=== PATIENT | male | born 1950 | race Caucasian/White ===

== ENCOUNTER 2020-08-24 10:12 | Outpatient (REF) | payer MEDICARE, OTHER, SELFPAY | END 2020-08-24 10:13 | disposition home or self-care (01) | LOC: HO.LNP 10:12 | PROVIDERS: PCP Internal Medicine; Visit Provider Urology | DX: N39.0 Urinary tract infection, site not specified (principal); C61 Malignant neoplasm of prostate; Z79.899 Other long term (current) drug therapy | CPT/HCPCS: 51798; 81002; 87086; 87088; 87186; 99212 ==

== ENCOUNTER 2020-08-25 11:05 | Outpatient (REF) | payer MEDICARE, OTHER, SELFPAY ==
[2020-08-25 14:05] LABS: Hematocrit 47.6 % (42-52); Hemoglobin 15.9 g/dl (14.0-18.0); Mean Corpuscular HGB Conc 33.4 g/dl (31.0-36.0); Mean Corpuscular Hemoglobin 28.9 pg (27.0-33.0); Mean Corpuscular Volume 86.5 fL (80-98); Mean Platelet Volume 10.5 fL (9.4-12.4); Platelet Count 156 X10*3/uL (160-400); Red Cell Distribution Width 14.6 % (11.0-16.0); White Blood Count 5.6 X10*3/uL (4.8-10.8)
[2020-08-25 14:36] LABS: Alanine Aminotransferase 28 U/L (0-40); Albumin Level 4.6 g/dL (3.5-5.0); Alkaline Phosphatase 128 U/L (39-117); Anion Gap 13 (12-20); Aspartate Amino Transferase 20 U/L (5-37); Bilirubin Total 1.3 mg/dL (0.0-1.0); Blood Urea Nitrogen 11 mg/dL (9-16); Carbon Dioxide 28 mmol/L (22-29); Chloride 108 mmol/L (96-108); Cholesterol 122 mg/dL; Estimated Glomerular Filt Rate > 60; Glucose Fasting 95 mg/dL (60-99); HDL Cholesterol 31 mg/dL; LDL Cholesterol Calculated 40 mg/dl; Potassium 4.4 mmol/l (3.3-5.1); Sodium 145 mmol/L (135-145); Total Protein 6.7 g/dL (6.5-8.0); Triglycerides 257 mg/dL
[2020-08-25 14:52] LABS: PSA,Total (Free>4and<10) 10.56 ng/mL (0.00-4.00)
== END 2020-08-25 11:06 | disposition home or self-care (01) ==
LOC: HO.HMGCLDS 11:05
PROVIDERS: PCP Internal Medicine; Visit Provider Urology
DX: N40.1 Benign prostatic hyperplasia with lower urinary tract symptoms (principal); R39.15 Urgency of urination; E78.2 Mixed hyperlipidemia; I63.81 Other cerebral infarction due to occlusion or stenosis of small artery; I10 Essential (primary) hypertension
CPT/HCPCS: 36415; 80053; 80061; 84153; 85027

== ENCOUNTER → 2020-11-23 13:59 | Outpatient (BNVA) | payer MEDICARE, SELFPAY | PROVIDERS: Visit Provider Urology | DX: C61 Malignant neoplasm of prostate (principal) | CPT/HCPCS: 81002; 99212 ==

== ENCOUNTER 2021-03-30 12:15 | Outpatient (REF) | payer MEDICARE, SELFPAY ==
[2021-03-30 13:26] LABS: Estimated Average Glucose 103 mg/dL; Hemoglobin A1c % 5.2 %
[2021-03-30 13:46] LABS: Alanine Aminotransferase 45 U/L (0-40); Albumin Level 4.7 g/dL (3.5-5.0); Alkaline Phosphatase 145 U/L (39-117); Anion Gap 14 (12-20); Aspartate Amino Transferase 29 U/L (5-37); Bilirubin Total 0.8 mg/dL (0.0-1.0); Blood Urea Nitrogen 15 mg/dL (9-16); Calcium 9.7 mg/dL (8.4-10.2); Carbon Dioxide 28 mmol/L (22-29); Chloride 107 mmol/L (96-108); Cholesterol 152 mg/dL; Estimated Glomerular Filt Rate 52; Glucose Fasting 78 mg/dL (60-99); HDL Cholesterol 33 mg/dL; LDL Cholesterol Calculated 54 mg/dl; Potassium 4.6 mmol/L (3.3-5.1); Sodium 144 mmol/L (135-145); Total Protein 6.8 g/dL (6.5-8.0); Triglycerides 325 mg/dL
[2021-03-30 14:15] LABS: Prostate Specific Antigen 4.94 ng/mL (<0.05-4.0)
== END 2021-03-30 12:16 | disposition home or self-care (01) ==
LOC: HO.LAB 12:15
PROVIDERS: PCP Internal Medicine; Visit Provider Urology
DX: Z12.5 Encounter for screening for malignant neoplasm of prostate (principal); C61 Malignant neoplasm of prostate; N13.8 Other obstructive and reflux uropathy; N40.1 Benign prostatic hyperplasia with lower urinary tract symptoms; R73.9 Hyperglycemia, unspecified; E78.5 Hyperlipidemia, unspecified; I10 Essential (primary) hypertension
CPT/HCPCS: 36415; 80053; 80061; 83036; 84153

== ENCOUNTER → 2021-03-31 11:17 | Outpatient (BNVA) | payer MEDICARE, SELFPAY | PROVIDERS: PCP Internal Medicine; Visit Provider Urology | DX: C61 Malignant neoplasm of prostate (principal) | CPT/HCPCS: 99212 ==

== ENCOUNTER 2021-06-05 09:45 | Inpatient (IN) | payer MEDICARE, MEDICAID, SELFPAY ==
--- NOTE | 2021-06-05 | ECG_ITS ---
Test Reason : SYNCOPE Blood Pressure : / mmHG Vent. Rate : 091 BPM Atrial Rate : 091 BPM P-R Int : 172 ms QRS Dur : 078 ms QT Int : 374 ms P-R-T Axes : 045 -05 020 degrees QTc Int : 460 ms Normal sinus rhythm Nonspecific T wave abnormality Abnormal ECG When compared with ECG of 09-DEC-2019 17:41, Nonspecific T wave abnormality is now Present Referred By: Generic ED Physician Electronically Signed By:DERRELL PAIGE
--- NOTE | ~2021-06-05 | XR_ITS ---
EXAMINATION: XR CHEST CLINICAL INFORMATION: Evaluate for aspiration. COMPARISON: Chest 06/05/2021 TECHNIQUE: Frontal view of the chest was obtained. FINDINGS: The lungs are hyperexpanded but clear of acute process. Heart size and pulmonary vascularity is normal. No gross bony abnormality seen. There is a right central port with its tip at atrial junction. There is mild spondylosis. No gross bony abnormality. XR/XR chest 1V IMPRESSION: Hypoexpanded lungs with no acute process.
--- NOTE | ~2021-06-05 | CT_ITS ---
EXAMINATION: CT CERVICAL SPINE WITHOUT CONTRAST CLINICAL INFORMATION: Fall. Neck pain. COMPARISON: None TECHNIQUE: 3 mm thin axial and reformatted 2 mm thin sagittal and coronal images of cervical spine were obtained without contrast. This CT examination was performed using dose optimization techniques as appropriate, variously including the following: *Automated exposure control *Adjustment of mA and/or kV according to patient size (this includes techniques or standardized protocols for targeted exams where dose is matched to indication/reason for exam; i.e. extremities or head) *Use of iterative reconstruction technique DLP: 1321 mGy-cm FINDINGS: There is normal cervical lordosis. The vertebral heights and alignment is normal. There is loss of C5-C6, C6-C7 disc heights with moderate ventral and mild posterior spondylosis from C4-C5 through C6-C7 disc levels. Moderate superior endplate spurring is seen at the C1-C2 disc level. The craniovertebral junction is normal. No visible acute fracture, dislocation or lytic process seen. There is moderate bilateral facet joint arthropathy C2-C3 through C6-C7 disc levels. Bilateral TM joints, visualized mandible and the neck cartilages are intact. Bilateral set salivary glands and the thyroid lobes are symmetric and normal. No neck mass or hematoma seen. Bilateral mastoid air cells and sphenoid sinuses are clear. No abnormality seen in the visualized intraparenchymal brain. CT/CT cervical spine wo con IMPRESSION: No acute fracture, dislocation or subluxation. There are degenerative disc changes C5-C6 and C6-C7 disc levels. Bilateral facet joint arthropathy and mild C1-C2 superior enthesophytes are noted.
--- NOTE | ~2021-06-05 | CT_ITS ---
EXAMINATION: CT HEAD WITHOUT CONTRAST CLINICAL INFORMATION: Fall COMPARISON: Previous head CT scans most recent November 2019 TECHNIQUE: Contiguous axial imaging was performed from the skull base to vertex without intravenous administration of contrast. This CT examination was performed using dose optimization techniques as appropriate, variously including the following: *Automated exposure control *Adjustment of mA and/or kV according to patient size (this includes techniques or standardized protocols for targeted exams where dose is matched to indication/reason for exam; i.e. extremities or head) *Use of iterative reconstruction technique DLP: 779 mGy-cm FINDINGS: There is no evidence of an extra-axial collection. There is no evidence of intra-axial or extra-axial hemorrhage. The ventricles and extra-axial CSF spaces are prominent suggestive of mild generalized atrophy. There is nonspecific periventricular white matter disease. No mass, mass effect or infarct is seen. Review of bone windows is normal. No skull fracture is seen. Visualized paranasal sinuses, mastoid air cells and middle ears are clear. CT/CT head/brain wo con IMPRESSION: No acute findings. Mild generalized atrophy and nonspecific periventricular white matter disease.
--- NOTE | ~2021-06-05 | XR_ITS ---
EXAMINATION: XR CHEST CLINICAL INFORMATION: Weakness COMPARISON: Previous chest x-ray November 2019, chest CT most recent September 2019 and PET/CT June 2018 TECHNIQUE: Frontal view of the chest was obtained. FINDINGS: The cardiac and mediastinal contours are stable. There is a right jugular port with tip projecting over the SVC. The lung volumes are low. There is atelectasis at the lung bases. The lungs are otherwise clear. There is no pleural effusion or pneumothorax. There are degenerative changes of the spine. There is a 1 cm sclerotic projecting over the the left proximal humerus. This is not seen on prior exams. XR/XR chest 1V IMPRESSION: Low lung volumes. Atelectasis at the lung bases. 1 cm sclerotic density injecting over the left proximal humerus. This is not seen on prior exams.
[2021-06-05 09:53] VITALS: BP 117/76; PULSE 88; RESP 18; TEMP 37.6; O2SAT 95; BMI 27.3
[2021-06-05 10:00] LABS: Glucose, Whole Blood 118 mg/dL (60-115)
--- NOTE | 2021-06-05 11:01 | ED_ITS ---
HPI - Syncope General Chief Complaint: Syncope Stated Complaint: VOMITING W/SYNCOPAL EPISODE PER SON Time Seen by Provider: 06/05/21 11:00 Source: patient and EMS Mode of arrival: EMS Limitations: altered mental status History of Present Illness complaint: almost passed out and collapsed Onset (ago): unknown Prodromal symptoms: none Witnessed: No Context: during exertion (walking in kitchen) Injuries sustained associated with event: none Current symptoms: weakness History: previous syncopal episode and other (BPH, lymphoma) Treatments prior to arrival: none Related Data Home Medications Medication Instructions Recorded Confirmed tamsulosin 0.4 mg capsule (Flomax) 0.8 mg PO DAILY@1700 09/02/20 06/05/21 acetaminophen 500 mg tablet 500 mg PO Q6H PRN 06/05/21 06/05/21 (Acetaminophen Extra Strength) Previous Rx's Medication Instructions Recorded atorvastatin 40 mg tablet 40 mg PO DAILY #90 tab 07/25/20 metoprolol tartrate 50 mg tablet 50 mg PO BID #180 tab 11/22/20 diaper,brief,adult,disposable #60 ea 12/20/20 finasteride 5 mg tablet 5 mg PO DAILY 90 Days #90 tab 05/31/21 Allergies Allergy/AdvReac Type Severity Reaction Status Date / Time No Known Allergies Allergy Verified 01/11/21 12:17 [No Known Allergies*] Review of Systems Review of Systems: ROS unable to be obtained due to altered mental status [facility] Past Medical History Source: old records reviewed Medical History Abnormal computed tomography angiography (CTA) Annual physical exam BPH (benign prostatic hyperplasia) CVA (cerebral vascular accident) Dementia Follicular lymphoma HTN (hypertension) Hyperglycemia Hyperlipidemia Lumbar spinal stenosis Surgical History H/O colonoscopy Family History Family History Father Colon cancer HTN (hypertension) Brother Non-Hodgkin lymphoma HTN (hypertension) Sister HTN (hypertension) Mother HTN (hypertension) TIA (transient ischemic attack) Social History Social History Alcohol intake: former Cigarettes Per Day: 3 Advance Directives: Yes Advance Directives Information Provided: No Advance Directives on File: No Physical Exam Vital Signs: Vital Signs: Last Vital Signs Temp 104 F H 06/05/21 15:55 Pulse 98 06/05/21 15:55 Resp 18 06/05/21 15:55 BP 168/89 H 06/05/21 15:55 Pulse Ox 89 L 06/05/21 15:55 Body Mass Index 27.3 Appearance: Alert. Oriented X2. Mild acute distress. Eyes: Pupils equal, round and reactive to light. ENT: Pharynx normal. Neck: Normal inspection. Neck supple. CVS: tachycardic heart rate and rhythm. Pulses normal. Respiratory: No respiratory distress. Breath sounds diminished due to poor inspiratory effort - limited, port site is c/d/i Abdomen: Soft and nontender. no grimace Skin: Skin warm and dry. pale skin color. poor skin turgor. Extremities: No lower extremity edema. no obvious trauma Neuro: Oriented X 2. ?LLE weakness but patient confused and poor effort. No sensory deficit. Course Course Course Narrative: pleasant but still confused - will admit for UTi and IV abx obs of encephalopathy temp increased, RI tylenol ordered, vomited - zofran and CXR ordered he is 89% on RA after emesis possible aspiration - RN To notify inpatient hospitalist as he is admitted MDM - Syncope MDM Narrative Medical decision making narrative: 70 yo male with lymphoma, BPH, recurrent UTI as of 09/11 E. Coli on susc to Ceftriaxone at this time comes in and states he almost passed out while walking in kitchen no trauma noted. Will need metabolic and infectious workup as well as CT head/neck for trauma. Will obtain cultures, lactic acid, hydrate and empiric ceftriaxone for presumed UTI - likely admit vs STR. Lab Data Result diagrams: 06/05/21 11:57 06/05/21 11:57 Labs: Lab Results 06/05/21 06/05/21 06/05/21 Range/Units 09:56 11:57 11:57 WBC 10.5 (4.8-10.8) X10*3/uL RBC 5.49 (4.60-5.80) X10*6/uL Hgb 15.7 (14.0-18.0) g/dl Hct 45.7 (42-52) % MCV 83.2 (80-98) fL MCH 28.6 (27.0-33.0) pg MCHC 34.4 (31.0-36.0) g/dl RDW 14.6 (11.0-16.0) % Plt Count 113 L (160-400) X10*3/uL MPV 10.0 (9.4-12.4) fL Immature Gran % (Auto) 1.2 H (0.0-0.4) % Neut % (Auto) 91.5 H (45-73) % Lymph % (Auto) 2.5 L (20-40) % Whitman % (Auto) 4.6 (2-11) % Eos % (Auto) 0.0 (0-4) % Baso % (Auto) 0.2 (0-2) % Lymph # (Auto) 0.3 L (1.2-4.9) X10*3/uL [place] # (Auto) 0.5 (0.1-1.2) X10*3/uL Eos # (Auto) 0.0 (0.0-0.4) X10*3/uL Baso # (Auto) 0.0 (0.0-0.2) X10*3/uL Abs Immat Gran (auto) 0.13 H (0.00-0.03) X10*3/uL Absolute Neuts (auto) 9.7 H (2.0-8.3) X10*3/uL Absolute Nucleated RBC 0.000 (0.0-0.012) X10*3/uL Nucleated RBC % (auto) 0.0 (0.0-0.2) /100WBC Smear Tech's Comments VERIFIED PT (9.9-13.0) SEC INR (0.9-1.1) APTT (24.1-38.0) SEC VBG pH (7.32-7.43) VBG pCO2 mmHg VBG pO2 mmHg VBG HCO3 (22-26) mmol/L VBG O2 Saturation % VBG Base Excess mmol/L Sodium 143 (135-145) mmol/L Potassium 3.8 (3.3-5.1) mmol/L Chloride 107 (96-108) mmol/L Carbon Dioxide 25 (22-29) mmol/L Anion Gap 15 (12-20) BUN 14 (9-16) mg/dL Creatinine 1.19 (0.5-1.4) mg/dL Estim Creat Clear Calc 56.9 Estimated GFR > 60 POC Glucose 118 H (60-115) mg/dL Random Glucose 92 (60-115) mg/dL Lactic Acid (0.5-2.0) mmol/L Calcium 9.6 D (8.4-10.2) mg/dL Magnesium (1.6-2.6) mg/dL Total Bilirubin (0.0-1.0) mg/dL Direct Bilirubin (0.0-0.5) mg/dL AST (5-37) U/L ALT (0-40) U/L Alkaline Phosphatase (39-117) U/L Ammonia (13-55) umol/L Troponin I High Sens (<3.5-35.0) ng/L Total Protein (6.5-8.0) g/dL Albumin (3.5-5.0) g/dL Lipase (8-78) U/L Urine Color Urine Appearance Urine pH (5.0-8.0) Ur Specific [place] (1.005-1.025) Urine Protein (NEG-TRACE) MG/DL Urine Glucose (UA) (NEG) MG/DL Urine Ketones (NEG) MG/DL Urine Blood (NEG) Urine Nitrite (NEG) Ur Leukocyte Esterase (NEG) Urine RBC (0) /HPF Urine WBC (0-4) /HPF Ur Squamous Epith Cells /LPF Urine Bacteria /LPF COVID-19 (JAMAL) (Negative) COVID-19 Clin Com 06/05/21 06/05/21 06/05/21 Range/Units 11:57 11:57 11:57 WBC (4.8-10.8) X10*3/uL RBC (4.60-5.80) X10*6/uL Hgb (14.0-18.0) g/dl Hct (42-52) % MCV (80-98) fL MCH (27.0-33.0) pg MCHC (31.0-36.0) g/dl RDW (11.0-16.0) % Plt Count (160-400) X10*3/uL MPV (9.4-12.4) fL Immature Gran % (Auto) (0.0-0.4) % Neut % (Auto) (45-73) % Lymph % (Auto) (20-40) % [place] % (Auto) (2-11) % Eos % (Auto) (0-4) % Baso % (Auto) (0-2) % Lymph # (Auto) (1.2-4.9) X10*3/uL [place] # (Auto) (0.1-1.2) X10*3/uL Eos # (Auto) (0.0-0.4) X10*3/uL Baso # (Auto) (0.0-0.2) X10*3/uL Abs Immat Gran (auto) (0.00-0.03) X10*3/uL Absolute Neuts (auto) (2.0-8.3) X10*3/uL Absolute Nucleated RBC (0.0-0.012) X10*3/uL Nucleated RBC % (auto) (0.0-0.2) /100WBC Smear Tech's Comments PT 11.9 (9.9-13.0) SEC INR 1.0 (0.9-1.1) APTT 34.9 (24.1-38.0) SEC VBG pH (7.32-7.43) VBG pCO2 mmHg VBG pO2 mmHg VBG HCO3 (22-26) mmol/L VBG O2 Saturation % VBG Base Excess mmol/L Sodium (135-145) mmol/L Potassium (3.3-5.1) mmol/L Chloride (96-108) mmol/L Carbon Dioxide (22-29) mmol/L Anion Gap (12-20) BUN (9-16) mg/dL Creatinine (0.5-1.4) mg/dL Estim Creat Clear Calc Estimated GFR POC Glucose (60-115) mg/dL Random Glucose (60-115) mg/dL Lactic Acid (0.5-2.0) mmol/L Calcium (8.4-10.2) mg/dL Magnesium 2.0 (1.6-2.6) mg/dL Total Bilirubin 1.6 H (0.0-1.0) mg/dL Direct Bilirubin 0.6 H (0.0-0.5) mg/dL AST 34 D (5-37) U/L ALT 65 H (0-40) U/L Alkaline Phosphatase 119 H (39-117) U/L Ammonia (13-55) umol/L Troponin I High Sens 4.2 (<3.5-35.0) ng/L Total Protein 6.5 (6.5-8.0) g/dL Albumin 4.7 (3.5-5.0) g/dL Lipase 31 (8-78) U/L Urine Color Urine Appearance Urine pH (5.0-8.0) Ur Specific [place] (1.005-1.025) Urine Protein (NEG-TRACE) MG/DL Urine Glucose (UA) (NEG) MG/DL Urine Ketones (NEG) MG/DL Urine Blood (NEG) Urine Nitrite (NEG) Ur Leukocyte Esterase (NEG) Urine RBC (0) /HPF Urine WBC (0-4) /HPF Ur Squamous Epith Cells /LPF Urine Bacteria /LPF COVID-19 (JAMAL) (Negative) COVID-19 Clin Com 06/05/21 06/05/21 06/05/21 Range/Units 11:58 11:58 12:01 WBC (4.8-10.8) X10*3/uL RBC (4.60-5.80) X10*6/uL Hgb (14.0-18.0) g/dl Hct (42-52) % MCV (80-98) fL MCH (27.0-33.0) pg MCHC (31.0-36.0) g/dl RDW (11.0-16.0) % Plt Count (160-400) X10*3/uL MPV (9.4-12.4) fL Immature Gran % (Auto) (0.0-0.4) % Neut % (Auto) (45-73) % Lymph % (Auto) (20-40) % [place] % (Auto) (2-11) % Eos % (Auto) (0-4) % Baso % (Auto) (0-2) % Lymph # (Auto) (1.2-4.9) X10*3/uL [place] # (Auto) (0.1-1.2) X10*3/uL Eos # (Auto) (0.0-0.4) X10*3/uL Baso # (Auto) (0.0-0.2) X10*3/uL Abs Immat Gran (auto) (0.00-0.03) X10*3/uL Absolute Neuts (auto) (2.0-8.3) X10*3/uL Absolute Nucleated RBC (0.0-0.012) X10*3/uL Nucleated RBC % (auto) (0.0-0.2) /100WBC Smear Tech's Comments PT (9.9-13.0) SEC INR (0.9-1.1) APTT (24.1-38.0) SEC VBG pH (7.32-7.43) VBG pCO2 mmHg VBG pO2 mmHg VBG HCO3 (22-26) mmol/L VBG O2 Saturation % VBG Base Excess mmol/L Sodium (135-145) mmol/L Potassium (3.3-5.1) mmol/L Chloride (96-108) mmol/L Carbon Dioxide (22-29) mmol/L Anion Gap (12-20) BUN (9-16) mg/dL Creatinine (0.5-1.4) mg/dL Estim Creat Clear Calc Estimated GFR POC Glucose (60-115) mg/dL Random Glucose (60-115) mg/dL Lactic Acid 1.3 (0.5-2.0) mmol/L Calcium (8.4-10.2) mg/dL Magnesium (1.6-2.6) mg/dL Total Bilirubin (0.0-1.0) mg/dL Direct Bilirubin (0.0-0.5) mg/dL AST (5-37) U/L ALT (0-40) U/L Alkaline Phosphatase (39-117) U/L Ammonia 18 (13-55) umol/L Troponin I High Sens (<3.5-35.0) ng/L Total Protein (6.5-8.0) g/dL Albumin (3.5-5.0) g/dL Lipase (8-78) U/L Urine Color Urine Appearance Urine pH (5.0-8.0) Ur Specific [place] (1.005-1.025) Urine Protein (NEG-TRACE) MG/DL Urine Glucose (UA) (NEG) MG/DL Urine Ketones (NEG) MG/DL Urine Blood (NEG) Urine Nitrite (NEG) Ur Leukocyte Esterase (NEG) Urine RBC (0) /HPF Urine WBC (0-4) /HPF Ur Squamous Epith Cells /LPF Urine Bacteria /LPF COVID-19 (JAMAL) Negative (Negative) COVID-19 Clin Com See Note 06/05/21 06/05/21 Range/Units 12:08 13:26 WBC (4.8-10.8) X10*3/uL RBC (4.60-5.80) X10*6/uL Hgb (14.0-18.0) g/dl Hct (42-52) % MCV (80-98) fL MCH (27.0-33.0) pg MCHC (31.0-36.0) g/dl RDW (11.0-16.0) % Plt Count (160-400) X10*3/uL MPV (9.4-12.4) fL Immature Gran % (Auto) (0.0-0.4) % Neut % (Auto) (45-73) % Lymph % (Auto) (20-40) % [place]man % (Auto) (2-11) % Eos % (Auto) (0-4) % Baso % (Auto) (0-2) % Lymph # (Auto) (1.2-4.9) X10*3/uL [place] # (Auto) (0.1-1.2) X10*3/uL Eos # (Auto) (0.0-0.4) X10*3/uL Baso # (Auto) (0.0-0.2) X10*3/uL Abs Immat Gran (auto) (0.00-0.03) X10*3/uL Absolute Neuts (auto) (2.0-8.3) X10*3/uL Absolute Nucleated RBC (0.0-0.012) X10*3/uL Nucleated RBC % (auto) (0.0-0.2) /100WBC Smear Tech's Comments PT (9.9-13.0) SEC INR (0.9-1.1) APTT (24.1-38.0) SEC VBG pH 7.40 (7.32-7.43) VBG pCO2 37 mmHg VBG pO2 34 mmHg VBG HCO3 23 (22-26) mmol/L VBG O2 Saturation 48.0 % VBG Base Excess -1.0 mmol/L Sodium (135-145) mmol/L Potassium (3.3-5.1) mmol/L Chloride (96-108) mmol/L Carbon Dioxide (22-29) mmol/L Anion Gap (12-20) BUN (9-16) mg/dL Creatinine (0.5-1.4) mg/dL Estim Creat Clear Calc Estimated GFR POC Glucose (60-115) mg/dL Random Glucose (60-115) mg/dL Lactic Acid (0.5-2.0) mmol/L Calcium (8.4-10.2) mg/dL Magnesium (1.6-2.6) mg/dL Total Bilirubin (0.0-1.0) mg/dL Direct Bilirubin (0.0-0.5) mg/dL AST (5-37) U/L ALT (0-40) U/L Alkaline Phosphatase (39-117) U/L Ammonia (13-55) umol/L Troponin I High Sens (<3.5-35.0) ng/L Total Protein (6.5-8.0) g/dL Albumin (3.5-5.0) g/dL Lipase (8-78) U/L Urine Color YELLOW Urine Appearance HAZY Urine pH 5.5 (5.0-8.0) Ur Specific [place] 1.020 (1.005-1.025) Urine Protein TRACE (NEG-TRACE) MG/DL Urine Glucose (UA) NEG (NEG) MG/DL Urine Ketones NEG (NEG) MG/DL Urine Blood 3+ H (NEG) Urine Nitrite POS H (NEG) Ur Leukocyte Esterase 2+ H (NEG) Urine RBC 30-49 H (0) /HPF Urine WBC 50-75 H (0-4) /HPF Ur Squamous Epith Cells NONE /LPF Urine Bacteria 3+ /LPF COVID-19 (JAMAL) (Negative) COVID-19 Clin Com ECG Data Attestation: I personally reviewed and interpreted this ECG as follows: ECG interpretation date: 06/05/21 ECG interpretation time: 11:01 Interpretation: Rate: 91 Rhythm: NSR Omega: left Normal P waves. Normal PINO. Normal QRS complex. ST T wave : no RUBEN, nonspecific qTC: normal prior studies: no acute ischemia The study has been interpreted contemporaneously by me. . Discharge Plan Discharge Clinical Impression: Encephalopathy due to infection, Acute UTI Fever Qualifiers: Fever type: unspecified Qualified Code(s): R50.9 - Fever, unspecified Patient Disposition: Admitted As Inpatient
[2021-06-05 12:10] VITALS: TEMP 38.5; O2SAT 95
[2021-06-05 12:12] LABS: Venous Blood Gas Refer to POC result
[2021-06-05 12:13] LABS: VBG HCO3 23 mmol/L (22-26); VBG pCO2 37 mmHg; VBG pO2 34 mmHg
[2021-06-05] MEDS: Acetaminophen 325 MG TABLET 650 MG PO (12:15)
[2021-06-05] MEDS: cefTRIAXone sodium 1 GM in 0.9 % Sodium Chloride 50 ML IV (12:15)
[2021-06-05] MEDS: 0.9 % Sodium Chloride 1,000 ML 999 ML IVCONT ×2 (12:15→13:05)
[2021-06-05 12:16] LABS: Basophils Percent Auto 0.2 % (0-2); Hematocrit 45.7 % (42-52); Hemoglobin 15.7 g/dl (14.0-18.0); Imm Gran Abs Auto 0.13 X10*3/uL (0.00-0.03); Imm Gran Pct Auto 1.2 % (0.0-0.4); Lymphocytes Absolute Auto 0.3 X10*3/uL (1.2-4.9); Lymphocytes Percent Auto 2.5 % (20-40); MANUAL DIFF FLAG SCAN; Mean Corpuscular HGB Conc 34.4 g/dl (31.0-36.0); Mean Corpuscular Hemoglobin 28.6 pg (27.0-33.0); Mean Corpuscular Volume 83.2 fL (80-98); Monocytes Absolute Auto 0.5 X10*3/uL (0.1-1.2); Monocytes Percent Auto 4.6 % (2-11); Neutrophils Absolute Auto 9.7 X10*3/uL (2.0-8.3); Neutrophils Percent Auto 91.5 % (45-73); Platelet Count 113 X10*3/uL (160-400); Red Blood Count 5.49 X10*6/uL (4.60-5.80); Red Cell Distribution Width 14.6 % (11.0-16.0); SCAN SMEAR FLAG 1; White Blood Count 10.5 X10*3/uL (4.8-10.8)
[2021-06-05 12:21] LABS: Prothrombin Time 11.9 SEC (9.9-13.0)
[2021-06-05 12:22] LABS: Ammonia 18 umol/L (13-55)
[2021-06-05 12:24] LABS: Partial Thromboplastin Time 34.9 SEC (24.1-38.0)
[2021-06-05 12:26] LABS: Lactic Acid 1.3 mmol/L (0.5-2.0)
[2021-06-05 12:34] LABS: COVID-19 Test Negative (Negative)
[2021-06-05 12:35] LABS: Anion Gap 15 (12-20); Blood Urea Nitrogen 14 mg/dL (9-16); Calcium 9.6 mg/dL (8.4-10.2); Carbon Dioxide 25 mmol/L (22-29); Chloride 107 mmol/L (96-108); Creatinine Clr Calc Pharmacy 56.9; Estimated Glomerular Filt Rate > 60; Glucose Random 92 mg/dL (60-115); Potassium 3.8 mmol/L (3.3-5.1); Sodium 143 mmol/L (135-145)
--- NOTE | 2021-06-05 12:37 | PHA.MEDREC ---
Pharmacy Consult ? Medication Reconciliation Pharmacy has completed the medication reconciliation. SPOKE WITH SON (FLOYD) AND DAUGHTER (ALICE). PATIENT DID NOT TAKE HIS MEDICATIONS THIS MORNING.
[2021-06-05 12:38] LABS: Alanine Aminotransferase 65 U/L (0-40); Albumin Level 4.7 g/dL (3.5-5.0); Alkaline Phosphatase 119 U/L (39-117); Aspartate Amino Transferase 34 U/L (5-37); Bilirubin Direct 0.6 mg/dL (0.0-0.5); Bilirubin Total 1.6 mg/dL (0.0-1.0); Lipase 31 U/L (8-78); Total Protein 6.5 g/dL (6.5-8.0)
[2021-06-05 12:40] LABS: Troponin-I High Sensitivity 4.2 ng/L (<3.5-35.0)
[2021-06-05 13:33] LABS: SLIDE REVIEW VERIFIED
[2021-06-05 13:45] LABS: Appearance Urine HAZY; Color Urine YELLOW; Glucose Urine UA NEG (NEG); Leukocyte Esterase Urine 2+ (NEG); Nitrite Urine POS (NEG); PH 5.5 (5.0-8.0); UACC Culture Trigger YES; Urine Blood 3+ (NEG); Urine Ketones NEG (NEG); Urine Protein TRACE MG/DL (NEG-TRACE)
[2021-06-05 13:59] LABS: RBC Urine 30-49 /HPF (0); WBC Urine 50-75 /HPF (0-4)
[2021-06-05 14:00] LABS: Bacteria Urine 3+ /LPF
--- NOTE | 2021-06-05 15:26 | PM.IMHP ---
History of Present Illness Date of Service: 06/05/21 Chief Complaint: Confusion, found on the floor by son This is a 70 yo M with a PMH of BPH, for follicular lymphoma with bone marrow involvement, CVA with left leg weakness, hypertension, hyperlipidemia amongst others who presents to the hospital after being found on the ground at home by his son. The patient is currently confused and so history is extremely limited and obtained from the patient's son whom he lives with. His son reports that about 12 days ago his father received the 2nd of his COVID-19 vaccination. He reports that for the next several days his father had recurrent fevers and confusion which also occurred after his 1st dose. However he did not require emergency room or PCP visit. His son reports that he was treated and observed at home with improvement back to his baseline. His son reports that he was actually doing fairly well. However, on the day prior to admission when his son returned home the patient was found on the ground with some vomitus on his shoulder and so he brought him to the emergency room. Upon arrival to the ED, patient underwent workup which included a UA which was strongly positive for urinary tract infection. Patient was confused and also febrile. He underwent a CT of the head, C-spine which were negative for acute findings. Chest x-ray was also negative for acute findings. Patient was given 1L IVF, IV antibiotics and admission as requested. Review of Systems Review of Systems: unable to be obtained Yes Unobtainable due to mental status [facility] Medical History Abnormal computed tomography angiography (CTA) Annual physical exam BPH (benign prostatic hyperplasia) CVA (cerebral vascular accident) Dementia Follicular lymphoma HTN (hypertension) Hyperglycemia Hyperlipidemia Lumbar spinal stenosis Family History Father Colon cancer HTN (hypertension) Brother Non-Hodgkin lymphoma HTN (hypertension) Sister HTN (hypertension) Mother HTN (hypertension) TIA (transient ischemic attack) Surgical History H/O colonoscopy Social History Alcohol intake: former Cigarettes Per Day: 3 Advance Directives: Yes Advance Directives Information Provided: No Advance Directives on File: No Meds Allergies Allergy/AdvReac Type Severity Reaction Status Date / Time No Known Allergies Allergy Verified 01/11/21 12:17 [No Known Allergies*] Active Medications: Current Medications Generic Name Dose Route Start Last Admin Trade Name Freq PRN Reason Stop Dose Admin Acetaminophen 650 mg 06/05/21 15:11 Acetaminophen 325 Mg Tablet PO Q6H PRN Pain, Mild (Pain Scale 1-3) Enoxaparin Sodium 40 mg 06/05/21 15:15 Enoxaparin Sodium 40 Mg/0.4 Ml Syringe SUBCUT Q24H [facility] Ceftriaxone Sodium 1 gm/ 50 mls @ 100 mls/hr 06/06/21 09:00 Sodium Chloride IV DAILY DEONDRE Ondansetron HCl 4 mg 06/05/21 15:11 Ondansetron Hcl 4 Mg/2 Ml Vial IVPUSH Q8H PRN Nausea and Vomiting Pharmacy Consult 1 each 06/05/21 11:06 Consult Rx Perform Med Rec MISCELLANE ONCE PRN Consult order Sodium Chloride 3 ml 06/05/21 16:00 0.9 % Sodium Chloride Flush 3 Ml Syringe IVFLUSH QSHIFT [facility] Home Medications Medication Instructions Recorded Confirmed Last Taken Type tamsulosin 0.4 mg capsule (Flomax) 0.8 mg PO DAILY@1700 09/02/20 06/05/21 06/04/21 History acetaminophen 500 mg tablet 500 mg PO Q6H PRN 06/05/21 06/05/21 Unknown History (Acetaminophen Extra Strength) Physical Exam Vital Signs and Narrative: Vital Signs: Last Vital Signs Temp 101.3 F H 06/05/21 12:10 Pulse 88 06/05/21 09:53 Resp 18 06/05/21 09:53 BP 117/76 06/05/21 09:53 Pulse Ox 95 06/05/21 12:10 Body Mass Index 27.3 Const: Other: Constitutional - Awake and Alert, Disoriented Eyes - PERRLA, EOMI Cardiovascular - S1S2, RRR, No edema Respiratory - Normal lung expansion, Normal respiratory effort, No respiratory distress, CTA bilaterally Gastrointestinal - NT / ND; +BS; No rebound or guarding - No CVA tenderness Extremities - no calf tenderness bilaterally, no swelling Musculoskeletal - Normal inspection, normal ROM Skin - Warm/Dry Neurological - Disoriented to person, place and time; moving all 4 limbs Psychological - inappropriate affect Results Labs CBC and Chem 7: 06/05/21 11:57 06/05/21 11:57 Labs: Laboratory Results - last 24 hr 06/05/21 06/05/21 06/05/21 09:56 11:57 11:57 MCV 83.2 MCH 28.6 MCHC 34.4 RDW 14.6 Plt Count 113 L MPV 10.0 Immature Gran % (Auto) 1.2 H Neut % (Auto) 91.5 H Lymph % (Auto) 2.5 L [place] % (Auto) 4.6 Eos % (Auto) 0.0 Baso % (Auto) 0.2 Lymph # (Auto) 0.3 L [place] # (Auto) 0.5 Eos # (Auto) 0.0 Baso # (Auto) 0.0 Abs Immat Gran (auto) 0.13 H Absolute Neuts (auto) 9.7 H Absolute Nucleated RBC 0.000 Nucleated RBC % (auto) 0.0 Smear Tech's Comments VERIFIED PT INR APTT VBG pH VBG pCO2 VBG pO2 VBG HCO3 VBG O2 Saturation VBG Base Excess Anion Gap 15 Creatinine 1.19 Estim Creat Clear Calc 56.9 Estimated GFR > 60 POC Glucose 118 H Random Glucose 92 Lactic Acid Calcium 9.6 D Magnesium Total Bilirubin Direct Bilirubin AST ALT Alkaline Phosphatase Ammonia Troponin I High Sens Total Protein Albumin Lipase Urine Color Urine Appearance Urine pH Ur Specific [place] Urine Protein Urine Glucose (UA) Urine Ketones Urine Blood Urine Nitrite Ur Leukocyte Esterase Urine RBC Urine WBC Ur Squamous Epith Cells Urine Bacteria COVID-19 (JAMAL) COVID-19 Clin Com 06/05/21 06/05/21 06/05/21 11:57 11:57 11:57 MCV MCH MCHC RDW Plt Count MPV Immature Gran % (Auto) Neut % (Auto) Lymph % (Auto) [place] % (Auto) Eos % (Auto) Baso % (Auto) Lymph # (Auto) [place] # (Auto) Eos # (Auto) Baso # (Auto) Abs Immat Gran (auto) Absolute Neuts (auto) Absolute Nucleated RBC Nucleated RBC % (auto) Smear Tech's Comments PT 11.9 INR 1.0 APTT 34.9 VBG pH VBG pCO2 VBG pO2 VBG HCO3 VBG O2 Saturation VBG Base Excess Anion Gap Creatinine Estim Creat Clear Calc Estimated GFR POC Glucose Random Glucose Lactic Acid Calcium Magnesium 2.0 Total Bilirubin 1.6 H Direct Bilirubin 0.6 H AST 34 D ALT 65 H Alkaline Phosphatase 119 H Ammonia Troponin I High Sens 4.2 Total Protein 6.5 Albumin 4.7 Lipase 31 Urine Color Urine Appearance Urine pH Ur Specific [place] Urine Protein Urine Glucose (UA) Urine Ketones Urine Blood Urine Nitrite Ur Leukocyte Esterase Urine RBC Urine WBC Ur Squamous Epith Cells Urine Bacteria COVID-19 (JAMAL) COVID-19 Clin Com 06/05/21 06/05/21 06/05/21 11:58 11:58 12:01 MCV MCH MCHC RDW Plt Count MPV Immature Gran % (Auto) Neut % (Auto) Lymph % (Auto) [place] % (Auto) Eos % (Auto) Baso % (Auto) Lymph # (Auto) [place] # (Auto) Eos # (Auto) Baso # (Auto) Abs Immat Gran (auto) Absolute Neuts (auto) Absolute Nucleated RBC Nucleated RBC % (auto) Smear Tech's Comments PT INR APTT VBG pH VBG pCO2 VBG pO2 VBG HCO3 VBG O2 Saturation VBG Base Excess Anion Gap Creatinine Estim Creat Clear Calc Estimated GFR POC Glucose Random Glucose Lactic Acid 1.3 Calcium Magnesium Total Bilirubin Direct Bilirubin AST ALT Alkaline Phosphatase Ammonia 18 Troponin I High Sens Total Protein Albumin Lipase Urine Color Urine Appearance Urine pH Ur Specific [place] Urine Protein Urine Glucose (UA) Urine Ketones Urine Blood Urine Nitrite Ur Leukocyte Esterase Urine RBC Urine WBC Ur Squamous Epith Cells Urine Bacteria COVID-19 (JAMAL) Negative COVID-19 Clin Com See Note 06/05/21 06/05/21 12:08 13:26 MCV MCH MCHC RDW Plt Count MPV Immature Gran % (Auto) Neut % (Auto) Lymph % (Auto) [place] % (Auto) Eos % (Auto) Baso % (Auto) Lymph # (Auto) [place] # (Auto) Eos # (Auto) Baso # (Auto) Abs Immat Gran (auto) Absolute Neuts (auto) Absolute Nucleated RBC Nucleated RBC % (auto) Smear Tech's Comments PT INR APTT VBG pH 7.40 VBG pCO2 37 VBG pO2 34 VBG HCO3 23 VBG O2 Saturation 48.0 VBG Base Excess -1.0 Anion Gap Creatinine Estim Creat Clear Calc Estimated GFR POC Glucose Random Glucose Lactic Acid Calcium Magnesium Total Bilirubin Direct Bilirubin AST ALT Alkaline Phosphatase Ammonia Troponin I High Sens Total Protein Albumin Lipase Urine Color YELLOW Urine Appearance HAZY Urine pH 5.5 Ur Specific [place] 1.020 Urine Protein TRACE Urine Glucose (UA) NEG Urine Ketones NEG Urine Blood 3+ H Urine Nitrite POS H Ur Leukocyte Esterase 2+ H Urine RBC 30-49 H Urine WBC 50-75 H Ur Squamous Epith Cells NONE Urine Bacteria 3+ COVID-19 (JAMAL) COVID-19 Clin Com Imaging Radiologist's Impressions: Impressions Cervical Spine CT 06/05/21 11:07 IMPRESSION: No acute fracture, dislocation or subluxation. There are degenerative disc changes C5-C6 and C6-C7 disc levels. Bilateral facet joint arthropathy and mild C1-C2 superior enthesophytes are noted. Chest X-Ray 06/05/21 11:07 IMPRESSION: Low lung volumes. Atelectasis at the lung bases. 1 cm sclerotic density injecting over the left proximal humerus. This is not seen on prior exams. Head CT 06/05/21 11:07 IMPRESSION: No acute findings. Mild generalized atrophy and nonspecific periventricular white matter disease. Assessment and Plan (1) Acute UTI: Status: Acute This is a 70 yo M with a PMH of State IV follicular lymphoma, BPH, prior prostatitis, who presents to the hospital after he was found on the floor at home by his son. His work up in concerning of Sepsis secondary to UTI. 1. Sepsis Meets sepsis criteria by fever and Bandemia (13). No severe features (platelets + bili are chronically low/high respectively) 2. UTI IV rocephin f/u cultures 3. Toxic/Metabolic Encephalopathy due to above CT head/c-spine neg for acute findings 4. HTN will watch BP today and start antihypertensives tomorrow 5. BPH continue flomax + finasteride DNR/DNI -- per son who is HCP (patient unable to answer at this time) DVT pptx, Lovenox Quality Stroke Does the patient have a stroke diagnosis?: No VTE Prior VTE?: No VTE Risk Level:: Medical - moderate - high VTE Device Contraindication: N/A - Device Ordered VTE Drug Contraindication: N/A - Med Ordered
[2021-06-05 15:55] VITALS: BP 168/89; PULSE 98; RESP 18; TEMP 40; O2SAT 89
[2021-06-05] MEDS: ondansetron HCL 4 MG/2 ML VIAL IVPUSH (15:58)
[2021-06-05] MEDS: Acetaminophen Supp 650 MG SUPP.RECT PR (15:58)
[2021-06-05] MEDS: Enoxaparin Sodium 40 MG/0.4 ML SYRINGE SUBCUT (16:18)
[2021-06-05] MEDS: 0.9 % Sodium Chloride Flush 3 ML SYRINGE IVFLUSH (16:32)
[2021-06-05 17:57] VITALS: PULSE 70; RESP 18; TEMP 39.2; O2SAT 97
[2021-06-05 22:15] VITALS: BP 121/75; PULSE 81; RESP 18; O2SAT 98
--- NOTE | 2021-06-05 23:03 | MHC.CM.PN ---
Addendum entered by Cathryn Thayer 06/05/21 23:14: Contact is son, Kamar Richard ([phone]). Original Note: CM met with admitted patient, with bed assignment pending. IMM reviewed and signed 06/05/21@3894. HCP on file, HCP was pt , who in August. Will need to complete another during hospital stay. Pt did not want to complete new HCP at this time. Pt weepy about 's passing I miss her . She took care of everything . Pt tells CM he has meals on wheels. Uses a cane and a walker. According to medical record, pt is fully vaccinated. Pt was diagnosed with dementia in 2019. Pt being admitted with acute UTI with encephalopathy. Please review information with son in am. Pt found on floor at home. Son lives with patient. Will need PT assessment. D/C plan is STR VS home services. Transportation provided by family if d/c home. CM to follow for d/c needs.
[2021-06-06] VITALS (7 sets, daily range): BP systolic 116–201; BP diastolic 76–102; PULSE 75–141; RESP 17–36; TEMP 36.6–39.1; O2SAT 92–98; BMI 26.6
[2021-06-06] MEDS: 0.9 % Sodium Chloride Flush 3 ML SYRINGE IVFLUSH ×2 (01:57→08:18)
[2021-06-06] MEDS: Lactated Ringers 1,000 ML 100 ML IVCONT ×2 (01:57→13:50)
[2021-06-06] MEDS: Acetaminophen 325 MG TABLET 650 MG PO ×2 (01:59→15:19)
[2021-06-06] MEDS: Tamsulosin HCL 0.4 MG CAPSULE 0.8 MG PO ×2 (02:02→16:48)
[2021-06-06 06:05] LABS: Hemoglobin 13.1 g/dl (14.0-18.0); Mean Corpuscular Hemoglobin 29.2 pg (27.0-33.0); PLT CLUMP 1; Red Cell Distribution Width 15.1 % (11.0-16.0)
[2021-06-06 06:07] LABS: Mean Corpuscular HGB Conc 34.5 g/dl (31.0-36.0); Mean Corpuscular Volume 84.8 fL (80-98); Mean Platelet Volume 10.3 fL (9.4-12.4); Platelet Count 109 X10*3/uL (160-400); Red Blood Count 4.48 X10*6/uL (4.60-5.80); White Blood Count 8.7 X10*3/uL (4.8-10.8)
[2021-06-06 06:31] LABS: Anion Gap 12 (12-20); Blood Urea Nitrogen 13 mg/dL (9-16); Calcium 8.6 mg/dL (8.4-10.2); Carbon Dioxide 25 mmol/L (22-29); Chloride 109 mmol/L (96-108); Estimated Glomerular Filt Rate > 60; Glucose Random 112 mg/dL (60-115); Potassium 3.9 mmol/L (3.3-5.1); Sodium 142 mmol/L (135-145)
[2021-06-06] MEDS: cefTRIAXone sodium 1 GM in 0.9 % Sodium Chloride 50 ML IV (08:17)
[2021-06-06] MEDS: Finasteride 5 MG TABLET PO (08:18)
--- NOTE | 2021-06-06 09:29 | MHC.CM.PN ---
IMM DISCUSSED WITH PATIENT. SIGNED COPY IN CHART PATIENT STATES THAT HE IS RETURNING HOME TODAY. PLAN IS NO SERVICES SON TO TRANSPORT. IMM 06/06 IN CHART
--- NOTE | 2021-06-06 11:10 | HO.PM.IMPN ---
Subjective Subjective Date of Service: 06/06/21 Interval History: F/u on ecephalopathy, he is now lucid but has gram negative ant bacteremi Review of Systems no fever no confusion no abdominal pain Physical Exam Vital Signs: Vital Signs: Last Vital Signs Temp 97.9 F 06/06/21 08:00 Pulse 93 06/06/21 08:00 Resp 18 06/06/21 08:00 BP 116/76 06/06/21 08:00 Pulse Ox 98 06/06/21 08:00 Body Mass Index 26.6 General: AO X 3, no acute distress Resp: CTA bilateral CVS: S1,S2,RRR GI: +BS, NT, no distention Skin: No rash Neuro: motor grossly intact Psych: appropriate affect Objective Data Active Medications Acetaminophen (Acetaminophen 325 Mg Tablet) 650 mg PO Q6H PRN PRN Reason: Pain, Mild (Pain Scale 1-3) Last Admin: 06/06/21 01:59 Dose: 650 mg Documented by: GRANT Enoxaparin Sodium (Enoxaparin Sodium 40 Mg/0.4 Ml Syringe) 40 mg SUBCUT Q24H [facility] Last Admin: 06/05/21 16:18 Dose: 40 mg Documented by: ARABELLA Finasteride (Finasteride 5 Mg Tablet) 5 mg PO DAILY [facility] Last Admin: 06/06/21 08:18 Dose: 5 mg Documented by: KATIE Ceftriaxone Sodium 1 gm/ (Sodium Chloride) 50 mls @ 100 mls/hr IV DAILY [facility] Last Infusion: 06/06/21 08:56 Dose: 0 mls/hr Documented by: KATIE Lactated Ringer's (Lr) 1,000 mls @ 100 mls/hr IVCONT .Q10H [facility] Last Admin: 06/06/21 02:19 Dose: Not Given Documented by: ALYSIA Non-Admin Reason: IV Running Ondansetron HCl (Ondansetron Hcl 4 Mg/2 Ml Vial) 4 mg IVPUSH Q8H PRN PRN Reason: Nausea and Vomiting Pharmacy Consult (Consult Rx Perform Med Rec) 1 each MISCELLANE ONCE PRN PRN Reason: Consult order Sodium Chloride (0.9 % Sodium Chloride Flush 3 Ml Syringe) 3 ml IVFLUSH QSHIFT [facility] Last Admin: 09/14/21 08:18 Dose: 3 ml Documented by: KATIE Tamsulosin HCl (Tamsulosin Hcl 0.4 Mg Capsule) 0.8 mg PO DAILY@1700 [facility] Last Admin: 06/06/21 02:02 Dose: 0.8 mg Documented by: GRANT Comments: Passed due from ER- tolerating po meds Labs CBC & Chem 7: 06/06/21 05:20 06/06/21 05:20 Labs: Laboratory Results - last 24 hr 06/05/21 06/05/21 06/05/21 11:57 11:57 11:57 MCV 83.2 MCH 28.6 MCHC 34.4 RDW 14.6 Plt Count 113 L MPV 10.0 Immature Gran % (Auto) 1.2 H Neut % (Auto) 91.5 H Lymph % (Auto) 2.5 L [place] % (Auto) 4.6 Eos % (Auto) 0.0 Baso % (Auto) 0.2 Lymph # (Auto) 0.3 L [place] # (Auto) 0.5 Eos # (Auto) 0.0 Baso # (Auto) 0.0 Abs Immat Gran (auto) 0.13 H Absolute Neuts (auto) 9.7 H Absolute Nucleated RBC 0.000 Nucleated RBC % (auto) 0.0 Smear Tech's Comments VERIFIED PT 11.9 INR 1.0 APTT 34.9 VBG pH VBG pCO2 VBG pO2 VBG HCO3 VBG O2 Saturation VBG Base Excess Anion Gap 15 Estim Creat Clear Calc 56.9 Estimated GFR > 60 Random Glucose 92 Lactic Acid Calcium 9.6 D Magnesium Total Bilirubin Direct Bilirubin AST ALT Alkaline Phosphatase Ammonia Troponin I High Sens Total Protein Albumin Lipase Urine Color Urine Appearance Urine pH Ur Specific [place] Urine Protein Urine Glucose (UA) Urine Ketones Urine Blood Urine Nitrite Ur Leukocyte Esterase Urine RBC Urine WBC Ur Squamous Epith Cells Urine Bacteria COVID-19 (JAMAL) COVID-19 Clin Com 06/05/21 06/05/21 06/05/21 11:57 11:57 11:58 MCV MCH MCHC RDW Plt Count MPV Immature Gran % (Auto) Neut % (Auto) Lymph % (Auto) [place] % (Auto) Eos % (Auto) Baso % (Auto) Lymph # (Auto) [place] # (Auto) Eos # (Auto) Baso # (Auto) Abs Immat Gran (auto) Absolute Neuts (auto) Absolute Nucleated RBC Nucleated RBC % (auto) Smear Tech's Comments PT INR APTT VBG pH VBG pCO2 VBG pO2 VBG HCO3 VBG O2 Saturation VBG Base Excess Anion Gap Estim Creat Clear Calc Estimated GFR Random Glucose Lactic Acid Calcium Magnesium 2.0 Total Bilirubin 1.6 H Direct Bilirubin 0.6 H AST 34 D ALT 65 H Alkaline Phosphatase 119 H Ammonia 18 Troponin I High Sens 4.2 Total Protein 6.5 Albumin 4.7 Lipase 31 Urine Color Urine Appearance Urine pH Ur Specific [place] Urine Protein Urine Glucose (UA) Urine Ketones Urine Blood Urine Nitrite Ur Leukocyte Esterase Urine RBC Urine WBC Ur Squamous Epith Cells Urine Bacteria COVID-19 (JAMAL) COVID-19 Clin Com 06/05/21 06/05/21 06/05/21 11:58 12:01 12:08 MCV MCH MCHC RDW Plt Count MPV Immature Gran % (Auto) Neut % (Auto) Lymph % (Auto) [place] % (Auto) Eos % (Auto) Baso % (Auto) Lymph # (Auto) [place] # (Auto) Eos # (Auto) Baso # (Auto) Abs Immat Gran (auto) Absolute Neuts (auto) Absolute Nucleated RBC Nucleated RBC % (auto) Smear Tech's Comments PT INR APTT VBG pH 7.40 VBG pCO2 37 VBG pO2 34 VBG HCO3 23 VBG O2 Saturation 48.0 VBG Base Excess -1.0 Anion Gap Estim Creat Clear Calc Estimated GFR Random Glucose Lactic Acid 1.3 Calcium Magnesium Total Bilirubin Direct Bilirubin AST ALT Alkaline Phosphatase Ammonia Troponin I High Sens Total Protein Albumin Lipase Urine Color Urine Appearance Urine pH Ur Specific [place] Urine Protein Urine Glucose (UA) Urine Ketones Urine Blood Urine Nitrite Ur Leukocyte Esterase Urine RBC Urine WBC Ur Squamous Epith Cells Urine Bacteria COVID-19 (JAMAL) Negative COVID-19 Clin Com See Note 06/05/21 06/06/21 06/06/21 13:26 05:20 05:20 MCV 84.8 MCH 29.2 MCHC 34.5 RDW 15.1 Plt Count 109 L MPV 10.3 Immature Gran % (Auto) Neut % (Auto) Lymph % (Auto) [place] % (Auto) Eos % (Auto) Baso % (Auto) Lymph # (Auto) [place] # (Auto) Eos # (Auto) Baso # (Auto) Abs Immat Gran (auto) Absolute Neuts (auto) Absolute Nucleated RBC 0.000 Nucleated RBC % (auto) 0.0 Smear Tech's Comments PT INR APTT VBG pH VBG pCO2 VBG pO2 VBG HCO3 VBG O2 Saturation VBG Base Excess Anion Gap 12 Estim Creat Clear Calc 61.0 Estimated GFR > 60 Random Glucose 112 Lactic Acid Calcium 8.6 D Magnesium Total Bilirubin Direct Bilirubin AST ALT Alkaline Phosphatase Ammonia Troponin I High Sens Total Protein Albumin Lipase Urine Color YELLOW Urine Appearance HAZY Urine pH 5.5 Ur Specific [place] 1.020 Urine Protein TRACE Urine Glucose (UA) NEG Urine Ketones NEG Urine Blood 3+ H Urine Nitrite POS H Ur Leukocyte Esterase 2+ H Urine RBC 30-49 H Urine WBC 50-75 H Ur Squamous Epith Cells NONE Urine Bacteria 3+ COVID-19 (JAMAL) COVID-19 Clin Com Microbiology Microbiology Results: Microbiology 06/05/21 12:01 Blood Culture - Preliminary Blood - Venous Prelim: GNR Gram Stain only Assessment and Plan (1) Recurrent UTI: Status: Acute (2) HTN (hypertension): Status: Acute (3) Metabolic encephalopathy: Status: Acute (4) Sepsis: Status: Acute Assessment and Plan: 70 yo M with a PMH of State IV follicular lymphoma, BPH, prior prostatitis, who presents to the hospital after he was found on the floor at home by his son. His work up in concerning of Sepsis secondary to UTI. 1. Sepsis d/t gram negative ant bacteremia -continue Rocephin D2 -Follow up on culture sensitive -Ultimately will do ok with oral Abx 2. UTI as source of bacteremia -Continue Rocephin as above 3. Toxic/Metabolic Encephalopathy--resolved due to above CT head/c-spine neg for acute findings 4. HTN--BP within normal. Restart home meds. DNR/DNI -- per son is HCP DVT pptx, Lovenox Dispo: likely dc by tomorrow if culture sensitivity known Quality Stroke Does the patient have a stroke diagnosis?: No VTE Prior VTE?: No VTE Risk Level:: Medical - moderate - high VTE Device Contraindication: N/A - Device Ordered VTE Drug Contraindication: N/A - Med Ordered
--- NOTE | 2021-06-06 12:10 | MHC.CM.PN ---
PER HOSPITALIST ROUNDS, PATIENT IS BACTEREMIC. NO PLAN FOR DC TODAY
[2021-06-06] MEDS: Enoxaparin Sodium 40 MG/0.4 ML SYRINGE SUBCUT (13:50)
[2021-06-07] VITALS: BP 163/95; PULSE 79; RESP 14; TEMP 36.5; O2SAT 94
[2021-06-07] MEDS: Lactated Ringers 1,000 ML 100 ML IVCONT (00:27)
[2021-06-07] MEDS: 0.9 % Sodium Chloride Flush 3 ML SYRINGE IVFLUSH (00:29)
[2021-06-07 07:53] VITALS: BP 164/101; PULSE 73; RESP 18; TEMP 36.8; O2SAT 96
--- NOTE | 2021-06-07 09:01 | P.DS_ITS ---
DS: Providers Provider Date of Service: 06/07/21 Date of admission: 06/05/21 15:12 Primary care physician: Esthela Carrillo MD Consults: 06/07/21 07:44 Consult to Infectious Diseases Routine Consulting Provider: Olya Mart Reason for consultation: GNR bacteremia Has provider been notified: No DS: Diagnosis Discharge Diagnosis (1) Recurrent UTI: Status: Acute (2) HTN (hypertension): Status: Acute (3) Metabolic encephalopathy: Status: Acute (4) Sepsis: Status: Acute DS: Summary Hospital Course Hospital Course: HPI from admission Chief Complaint: Confusion, found on the floor by son This is a 70 yo M with a PMH of BPH, for follicular lymphoma with 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 The patient is currently confused and so history is extremely limited and obtained from the patient's son whom he lives with.? His son reports that about 12 days ago his father received the 2nd of his COVID-19 vaccination.? He reports that for the next several days his father had recurrent fevers and confusion which also occurred after his 1st dose.? However he did not require emergency room or PCP visit.? His son reports that he was treated and observed at home with improvement back to his baseline.? His son reports that he was actually doing fairly well.? However, on the day prior to admission when his son returned home the patient was found on the ground with some vomitus on his shoulder and so he brought him to the emergency room. Upon arrival to the ED, patient underwent workup which included a UA which was strongly positive for urinary tract infection.? Patient was confused and also febrile.? He underwent a CT of the head, C-spine which were negative for acute findings.? Chest x-ray was also negative for acute findings. Patient was given 1L IVF, IV antibiotics and admission as requested. hospital course: patient was admitted and treated for sepsis d/t UTI causing toxic metabolic encephalopathy. Urine and blood culture grew gram negative rods, Ecoli identified in urine and sensitive to Ceftriaxone. Encephalopathy rapidly resolved with Abx and IV and he remains lucid. Sepsis, UTI and gram negative ant bacteremia was treated with Ceftriaxone and sepsis has resolved. He will be transition to oral Ceftin for 14 days. ID recommended US of bladder before discharge but patient didn't want to stay to get it done, therefore order it for outpatient--know that it will not be as timely Final Diagnoses: Sepsis UTI bacteremia Metabolic encephalopathy Time Spent with Patient Time attestation: Total time spent providing and/or coordinating discharge services: Discharge coordination time: Greater than 30 minutes Quality: Stroke Does the patient have a stroke diagnosis?: No Physical Exam Vital Signs: Vital Signs: Last Vital Signs Temp 98.2 F 06/07/21 07:53 Pulse 73 06/07/21 07:53 Resp 18 06/07/21 07:53 BP 164/101 H 06/07/21 07:53 Pulse Ox 96 06/07/21 07:53 Body Mass Index 26.6 DS: Data Data Completed and Pending Labs on day of discharge: Preliminary micro results at discharge 06/05/21 12:02 Blood Culture - Preliminary Blood - Venous No growth after 24 hours. 06/05/21 12:01 Blood Culture - Preliminary Blood - Venous Prelim: GNR Gram Stain only Discharge Plan Discharge Anticipated Discharge Date/Time: 06/07/21 08:53 Patient Disposition: Home, Self-Care Discharge Diagnosis: Sepsis due to UTI Referrals: Esthela Carrillo MD [Primary Care Provider] - 1 Week Discharge Medications: New cefuroxime axetil 500 mg tablet 500 mg PO Q12H 14 Days Qty: 28 RF: 0 Continued atorvastatin 40 mg tablet 40 mg PO DAILY Qty: 90 RF: 3 metoprolol tartrate 50 mg tablet 50 mg PO BID Qty: 180 RF: 3 (DME) diaper,brief,adult,disposable Misc See Rx Instructions .ROUTE .MEDSUPPLY Qty: 60 RF: 12 finasteride 5 mg tablet 5 mg PO DAILY 90 Days Qty: 90 RF: 2 acetaminophen [Acetaminophen Extra Strength] 500 mg Tablet 500 mg PO Q6H PRN (Reason: FEVER/PAIN) RF: 0 tamsulosin [Flomax] 0.4 mg capsule 0.8 mg PO DAILY@1700 RF: 0 Discharge Orders: Discharge Order (Routine); Ordered 06/07/21 Ordered By: [facility] Diet: advance to usual diet Activity on Discharge: As tolerated Stand Alone Forms: Patient Portal Discharge page Other Ambulatory Orders: US bladder (Routine) Timeframe: [id number] Facility: [facility] - Location: Ultrasound Ordered By: [facility] Care Plan Goals: [facility] rehospitalization Health Concerns: Sepsis, bacteremia, UTI Plan of Treatment: Take Ceftin (Cefuroxime) as directed and follow up with your Doctor him Assessment: As above Discharge Date/Time: 06/07/21 16:53
[2021-06-07] MEDS: Finasteride 5 MG TABLET PO (10:20)
[2021-06-07] MEDS: cefTRIAXone sodium 1 GM in 0.9 % Sodium Chloride 50 ML IV (10:20)
[2021-06-07 11:18] VITALS: BP 123/68; PULSE 58; RESP 18; TEMP 36.9; O2SAT 94
--- NOTE | 2021-06-07 12:16 | MHC.CM.PN ---
PATIENT IS DISCHARGED HOME TODAY. HE IS AGREEABLE TO NA REFERRAL AND ONE IS NOW PLACED. CM FOLLOWING
--- NOTE | 2021-06-07 12:23 | W.PM.IDCN ---
History of Present Illness Data of Consult Service Date: 06/07/21 Requesting physician: Benedict Blanc Primary Care Provider: Esthela Carrillo MD HPI Reason for consult: bacteremia He was brought in with syncope. He doesnt recall what happened He has gram negative rods blood Review of Systems Review of Systems: Yes all other systems are reviewed and are negative PMFSH Past Medical History Medical History Abnormal computed tomography angiography (CTA) Annual physical exam BPH (benign prostatic hyperplasia) CVA (cerebral vascular accident) Dementia Follicular lymphoma HTN (hypertension) Hyperglycemia Hyperlipidemia Lumbar spinal stenosis Recurrent UTI Family History Family History Father Colon cancer HTN (hypertension) Brother Non-Hodgkin lymphoma HTN (hypertension) Sister HTN (hypertension) Mother HTN (hypertension) TIA (transient ischemic attack) Family history: reviewed and not pertinent Surgical History Surgical History H/O colonoscopy Social History Social History Household Members: Unknown / Unable to assess Household Members Other:: He mentioned 2 dogs and a person, but not answering now. Housing: House Housing Other:: Unsure if this is correct. Alcohol intake: former Patient Tobacco Use Status: Tobacco use Unknown Tobacco use type: Cigarette Cigarettes Per Day: 3 service: No Current occupational status: retired Meds Allergies Allergy/AdvReac Type Severity Reaction Status Date / Time No Known Allergies Allergy Verified 01/11/21 12:17 [No Known Allergies*] Active Medications: Current Medications Generic Name Dose Route Start Last Admin Trade Name Freq PRN Reason Stop Dose Admin Acetaminophen 650 mg 06/05/21 15:11 06/06/21 15:19 Acetaminophen 325 Mg Tablet PO 650 mg Q6H PRN Administration Pain, Mild (Pain Scale 1-3) Enoxaparin Sodium 40 mg 06/05/21 15:15 06/06/21 13:50 Enoxaparin Sodium 40 Mg/0.4 Ml Syringe SUBCUT 40 mg Q24H [facility] Administration Finasteride 5 mg 06/06/21 09:00 06/07/21 10:20 Finasteride 5 Mg Tablet PO 5 mg DAILY [facility] Administration Ceftriaxone Sodium 1 gm/ 50 mls @ 100 mls/hr 06/06/21 09:00 06/07/21 11:21 Sodium Chloride IV Infused DAILY [facility] Infusion Lactated Ringer's 1,000 mls @ 100 mls/hr 06/05/21 16:15 06/07/21 10:30 Lr IVCONT Not Given .Q10H [facility] Ondansetron HCl 4 mg 06/05/21 15:11 Ondansetron Hcl 4 Mg/2 Ml Vial IVPUSH Q8H PRN Nausea and Vomiting Pharmacy Consult 1 each 06/05/21 11:06 Consult Rx Perform Med Rec MISCELLANE ONCE PRN Consult order Sodium Chloride 3 ml 06/05/21 16:00 06/07/21 10:28 0.9 % Sodium Chloride Flush 3 Ml Syringe IVFLUSH Not Given QSHIFT [facility] Tamsulosin HCl 0.8 mg 06/05/21 17:00 06/06/21 16:48 Tamsulosin Hcl 0.4 Mg Capsule PO 0.8 mg DAILY@1700 [facility] Administration Home Medications Medication Instructions Recorded Confirmed Last Taken Type acetaminophen 500 mg tablet 500 mg PO Q6H PRN 06/05/21 06/05/21 Unknown History (Acetaminophen Extra Strength) Physical Exam Vital Signs: Vital Signs: Last Vital Signs Temp 98.5 F 06/07/21 11:18 Pulse 58 06/07/21 11:18 Resp 18 06/07/21 11:18 BP 123/68 06/07/21 11:18 Pulse Ox 94 06/07/21 11:18 Body Mass Index 26.6 Const: General: cooperative HENMT: Head: Yes normal to inspection Mouth: Normal oral and palatal mucosa present Eyes: General: appearance normal, both eyes and all related structures Resp: Effort & Inspection: normal respiratory effort Cardio: Rate: regular rate Rhythm: regular rhythm GI: Palpation (GI): Soft to palpation and nontender : General: No CVA tenderness Penis: no swelling Back/Spine/Pelvis: Back: No CVA tenderness Results Labs CBC & Chem 7: 06/06/21 05:20 06/06/21 05:20 Microbiology Microbiology Results: Microbiology 06/05/21 12:01 Blood - Venous Blood Culture - Preliminary Gram negative ant 06/05/21 12:02 Blood - Venous Blood Culture - Preliminary No growth after 24 hours. 06/05/21 13:49 Urine clean catch - Urine mcmullen top Urine Culture - Final Assessment and Plan (1) Sepsis: Status: Resolved Likely this is due to gram negative bacteremia He has risk factor urinary retention and prostate cancer He has possible E coli,Klebsiella (2) Metabolic encephalopathy: Status: Resolved (3) Prostate cancer: Status: Resolved (4) Recurrent UTI: Status: Acute (5) Encephalopathy due to infection: Status: Resolved Would use Ceftriaxone or Zosyn Await cultures u/s abdomen rule out obstruction
--- NOTE | 2021-06-07 12:40 | W.MHC.F2F ---
Service Date Service Date: 06/07/21 Reasons for Services Reason for shelter: medication treatment Reason for physical therapy: home safety and mobility Homebound: Leaving the home is medically contraindicated at this time without the asist of a device and/or another person due th the listed conditions above and below. Homebound supporting statement: homebound due to sepsis, causing weakness post hospitalization and therefore needs the assistance of another person Certification: Based on the above findings, I certify that this patient is confined to the home and needs intermittent shelter care, physical therapy and/or speech therapy, or continues to need occupational therapy. The patient is under my care, and I have initiated the establishment of the plan of care. The patient will be followed by a physician who will periodically review the plan of care.
--- NOTE | 2021-06-07 16:04 | PC.NURSE ---
Skin assessment completed today. Patients' skin is intact, no open areas or pressure issues.
[2021-06-07] MEDS: Enoxaparin Sodium 40 MG/0.4 ML SYRINGE SUBCUT (16:23)
[2021-06-07] MEDS: Tamsulosin HCL 0.4 MG CAPSULE 0.8 MG PO (16:24)
== END 2021-06-07 16:53 | disposition home or self-care (01) | DRG 871 ==
LOC: HO.ED 12:11 → HO.EDOVER 15:25 → HO.S3 23:10
PROVIDERS: Admitting Provider Family Medicine; Emergency Provider Emergency Medicine; PCP Internal Medicine; Visit Provider Internal Medicine
DX: A41.9 Sepsis, unspecified organism (principal); G92 Toxic encephalopathy; N39.0 Urinary tract infection, site not specified; F03.90 Unspecified dementia, unspecified severity, without behavioral disturbance, psychotic disturbance, mood disturbance, and anxiety; I69.944 Monoplegia of lower limb following unspecified cerebrovascular disease affecting left non-dominant side; F17.210 Nicotine dependence, cigarettes, uncomplicated; B96.20 Unspecified Escherichia coli [E. coli] as the cause of diseases classified elsewhere; N40.0 Benign prostatic hyperplasia without lower urinary tract symptoms; I10 Essential (primary) hypertension; Z87.440 Personal history of urinary (tract) infections; Z20.822 Contact with and (suspected) exposure to COVID-19; Z71.6 Tobacco abuse counseling; Z79.899 Other long term (current) drug therapy; Z66 Do not resuscitate
CPT/HCPCS: 36415; 70450; 71045; 72125; 80048; 80076; 81001; 82140; 82803; 82947; 83605; 83690; 83735; 84484; 85025; 85027; 85610; 85730; 87040; 87077; 87086; 87186; 87205; 87635; 93005; 96361; 96365; 96375; 99285; J0696; J1650; J2405

== ENCOUNTER 2021-06-13 12:43 | Outpatient (RCR) | payer MEDICARE, MEDICAID, SELFPAY ==
--- NOTE | 2021-06-13 13:51 | MHC.PT.EP ---
[facility] [place] Office [place] Office [place] Office [address] Michael Gamez [address] [phone] F: [phone] F: [phone] F: [phone] F: [phone] Physical Therapy Plan of Care Date of Evaluation: Date of Surgery: Diagnosis: This is a 70 yo male presenting to skilled PT with a script for unsteadiness on feet. Assessment: This is a 70 yo male presenting to skilled PT with a script for unsteadiness on feet. This patient has been to this facility in the past for balance. He reports to the clinic today stating balance has gotten worse. He also continues to have low back pain that is located across the low back and is described as achy. His last fall was 3 days ago when he fell down the stairs, he was just DC'd from the hospital that day. He reports that he has a walker at home but uses his straight cane instead. Assessment reveals pain that ranges up to a 8/10. He demos gross UB and LB decreased ROM and decreased strength, impaired gait pattern with decreased balance requiring AD, poor posture as well as gross functional decline with standing, walking, functional transfers. He is grossly deconditioned and lives a sedentary lifestyle sitting in his recliner most of the day. He has poor recall, poor memory and has decreased safety awareness. He is a good candidate for skilled PT 2x/wk for 4wks. Frequency and Duration: The patient will be seen 2x/wk for 4wks Short Term Goals: I in HEP with assist from son Demo proper core stab without cuing from PT Fdc Goals: Tolerate 10 sit to stands without assist and with appropriate safety Improve LBP to no more than 4/10 at the worst Treatment Plan: Modalities to reduce pain, spasms and effusion. Manual therapy to restore motion and function. Therapeutic exercise to improve strength and flexibility. Neuromuscular re-education for posture and balance. Therapeutic activities to return to functional activities of daily living. Electronically signed by: Camila Robles PT Please sign and return to therapist. Thank you for your referral.
--- NOTE | 2021-06-14 12:51 | MHC.PT.DC ---
[facility] [place] Office [place] Office [place] Office [address] Michael Gamez [address] [phone] F: [phone] F: [phone] F: [phone] F: [phone] Physical Therapy Discharge Report Diagnosis: This is a 70 yo male presenting to skilled PT with a script for unsteadiness on feet. Date of Surgery: Date of Evaluation: 06/13/21 Date of Discharge: 06/14/21 Treatments to Date: 1 Cancellations to Date: 0 No Shows to Date: 0 Discharge Status: Physician Discontinued Tx Discharge Summary: Patient to have home services, DC at this time. Electronically signed by: Camila Robles PT Please sign and return to therapist. Thank you for your referral.
== END 2021-06-14 15:46 | disposition home or self-care (01) ==
LOC: HO.PTCHIC 12:43
PROVIDERS: PCP Internal Medicine; Visit Provider Internal Medicine
DX: R26.81 Unsteadiness on feet (principal)
CPT/HCPCS: 97110; 97163

== ENCOUNTER 2021-07-28 15:05 | Outpatient (REF) | payer MEDICARE, SELFPAY ==
[2021-07-28 16:37] LABS: Appearance Urine CLOUDY; Color Urine YELLOW; Glucose Urine UA NEG (NEG); Leukocyte Esterase Urine 3+ (NEG); Nitrite Urine NEG (NEG); Specific Gravity - Urine 1.015 (1.005-1.025); UACC Culture Trigger YES; Urine Blood 2+ (NEG); Urine Ketones NEG (NEG); Urine Protein TRACE MG/DL (NEG-TRACE)
[2021-07-28 17:27] LABS: Bacteria Urine 4+ /LPF; WBC Urine TNTC /HPF (0-4)
== END 2021-07-28 15:06 | disposition home or self-care (01) ==
LOC: HO.HMGCLNP 15:05
PROVIDERS: Visit Provider Internal Medicine
DX: N39.0 Urinary tract infection, site not specified (principal)
CPT/HCPCS: 81001; 87086; 87088; 87186

== ENCOUNTER 2021-08-04 13:25 | Outpatient (REF) | payer MEDICARE, SELFPAY ==
[2021-08-04 17:41] LABS: PSA,Total (Free>4and<10) 5.24 ng/mL (0.00-4.00)
[2021-08-07 12:32] LABS: Free Prostate Spec Ag 1.6 ng/mL; Percent Free Prostate Spec Ag 31 % (calc) (>25); Prostate Specific Ag Total 5.1 ng/mL (< OR = 4.0)
== END 2021-08-04 13:26 | disposition home or self-care (01) ==
LOC: HO.HMGCLDS 13:25
PROVIDERS: PCP Internal Medicine; Visit Provider Urology
DX: Z12.5 Encounter for screening for malignant neoplasm of prostate (principal); C61 Malignant neoplasm of prostate
CPT/HCPCS: 36415; 84153; 84154

== ENCOUNTER → 2021-08-11 12:13 | Outpatient (BNVA) | payer MEDICARE, SELFPAY | PROVIDERS: PCP Internal Medicine; Visit Provider Urology | DX: Z13.89 Encounter for screening for other disorder (principal) | CPT/HCPCS: Q3014 ==

== ENCOUNTER 2021-08-23 13:23 | Outpatient (REF) | payer MEDICARE, MEDICAID, SELFPAY ==
[2021-08-26 12:42] LABS: TS Negative Control Passed; TS Panel A 0; TS Panel B 0; TS Positive Control Passed; TSpotTB Negative (Negative)
== END 2021-08-23 13:24 | disposition home or self-care (01) ==
LOC: HO.HMGCLDS 13:23
PROVIDERS: PCP Internal Medicine; Visit Provider Internal Medicine
DX: Z11.1 Encounter for screening for respiratory tuberculosis (principal)
CPT/HCPCS: 36415; 86481

== ENCOUNTER 2021-10-12 14:00 | Outpatient (RCR) | payer MEDICARE, MEDICAID, SELFPAY ==
--- NOTE | 2021-08-31 13:58 | MHC.PT.EP ---
[facility] [place] Office [place] Office [place] Office [address] Michael Gamez [address] [phone] F: [phone] F: [phone] F: [phone] F: [phone] Physical Therapy Plan of Care Date of Evaluation: Date of Surgery: Diagnosis: unsteadiness on feet Assessment: Patient is a 70 year old R handed male who presents with s/s consistent with unsteady gait, unsteadiness on feet. He has a history of several falls with inability to stand up after. His most recent was 3 weeks ago. PMH also includes dementia and CVA. Current impairments include pain, ROM, strength, safety, balance, independence, activity tolerance and functional mobility. Functional limitations include decreased ability to walk, stand, transfer, negotiate stairs, and perform weight bearing activities.. Patient is motivated with good rehab potential. Skilled PT will address impairments and functional limitations in order to achieve goals. Frequency and Duration: The patient will be seen 2x/week for 5 weeks Short Term Goals: I with HEP -2 weeks Able to bike/stepper 10 minutes without rest - 3 weeks Intermediate Goals: LEFS 12/80 - 5 weeks LE strength 4-/5 grossly - 5 weeks DLB on airex EC without LOB > 30 seconds - 5 weeks Evidence of commitment to intermediate manager compliance with HEP - 5 weeks Treatment Plan: Modalities to reduce pain, spasms and effusion. Manual therapy to restore motion and function. Therapeutic exercise to improve strength and flexibility. Neuromuscular re-education for posture and balance. Therapeutic activities to return to functional activities of daily living. Electronically signed by: Jeffy Santana, PT Please sign and return to therapist. Thank you for your referral.
--- NOTE | 2021-10-27 09:25 | MHC.PT.DC ---
[facility] [place] Office [place] Office [place] Office [address] Michael Gamez [address] [phone] F: [phone] F: [phone] F: [phone] F: [phone] Physical Therapy Discharge Report Diagnosis: unsteadiness on feet Date of Surgery: Date of Evaluation: 08/30/21 Date of Discharge: 10/17/21 Treatments to Date: 9 Cancellations to Date: No Shows to Date: Discharge Status: Independent with HEP Discharge Summary: Pt progressed with L.E strength, balance and gait. Pt is DC with HEP and to cont working with balance exs. Electronically signed by: Jeffy Santana, PT Please sign and return to therapist. Thank you for your referral.
== END 2021-10-17 07:00 | disposition home or self-care (01) ==
LOC: HO.PTCHIC 14:00
PROVIDERS: PCP Internal Medicine; Visit Provider Internal Medicine
DX: R26.81 Unsteadiness on feet (principal)
CPT/HCPCS: 97110; 97112; 97163

== ENCOUNTER 2021-10-26 13:02 | Outpatient (REF) | payer MEDICARE, MEDICAID, SELFPAY ==
--- NOTE | 2021-10-26 16:05 | MHC.AU.HAS ---
Hearing Aid Evaluation Date of Visit: 10/26/21 Historical Information: Description of Hearing: Mild sloping to moderately-severe/severe sensorineural hearing loss bilaterally. Current personal amplification information, if applicable: None Summary: Based on type and degree of hearing loss and patient's shared listening needs/concerns, binaural amplification is recommended to help facilitate improved communication. Hearing aid styles and technologies were discussed. Mr. Richard is interested in rechargeable dgvtokkp-xa-njz-canal style hearing aids couple with domes. Hearing Aid Prescription: Based on the individual?s shared listening needs, communication environments, dexterity, desire for connectivity, and personal preferences, the following prescription for amplification has been made: Right ear: Underground Utility Locator: Phonak Model: Audeo P70-R Battery Size: Rechargeable Color: P1-Sand Beige Oil Winterizer: Size 1 M Type of Dome: Power Left ear: Left ear prescription to be same as Right Hearing Aid above: Underground Utility Locator: Phonak Model: Audeo P70-R Battery Size: Rechargeable Color: P1-Sand Beige Oil Winterizer: Size 1 M Type of Dome: Power Plan of Care: Medical Clearance to be requested from PCP/ENT. Hearing aids will be ordered once MD clearance is received. Hearing Instrument Fitting to be scheduled when materials arrive. Primary Diagnosis: H90.3 Bilateral Sensorineural Hearing Loss Secondary Diagnosis: H61.22 Impacted Cerumen, Left Ear Signature: Provider: Sandhya Sargent, [facility]
--- NOTE | 2021-10-26 16:07 | MHC.AU.MED ---
Medical Clearance for Hearing Instrumentation Date: 10/26/21 Patient Name: Joseph Richard Date of : 1950 Referring Provider: Esthela Carrillo MD We have seen your patient on 10/26/21 and have determined that they are a candidate for amplification (See accompanying report). Specifically, they would benefit from: Hearing aid use in both ears There is a statute that addresses Medical Evaluation Requirements prior to fitting a patient with a hearing aid. According to [place] statute 265 CMR:6.03(1), (a) General. Except as provided in 265 CMR 6.03(1)(b), a labor arbitrator hearing office shall not sell a hearing aid unless the prospective user has presented to the labor arbitrator hearing office a written statement signed by a licensed physician that states that the patient's hearing loss has been medically evaluated and the patient may be considered a candidate for a hearing aid. The medical evaluation must have taken place within the preceding six months. Please note: Due to the [place] Statute referenced above, we cannot accept a signature other than that of a licensed physician. RESPIRATORY SCIENTIST and PA signatures cannot be accepted. I am in agreement with the above recommendation. There is no medical contraindication for hearing instrumentation. Physician Signature Date Physician Name (Printed)
--- NOTE | 2021-10-26 16:59 | MHC.AU.ANR ---
Adult Audiological Evaluation Date of Visit: 10/26/21 Reason for Appointment: Audiological evaluation due to concern for decreased hearing. Mr. Richard and his son report that he's been having increased difficulty hearing over the past few years. He states that he often asks for repetition. 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 Mr. Richard has a history of cancer (lymphoma, prostate cancer). He started chemotherapy in 2013 and states that he had 18-19 rounds of chemo over the course of several years. Does patient feel they have a hearing loss?: Yes If Yes, Which Ear?: Both Ears When Was Hearing Difficulty First Noticed?: ~10 years ago Has hearing been tested previously?: Yes Previous Hearing Test Results: Notes that he had his hearing tested at work 10 years ago, and was told at that time that he had some hearing loss. Records not available for review. 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 18-19 course of chemotherapy. Per EMR: dementia, hypertension Allergies: NKA Medication List: acetaminophen, atorvastatin, cefuroxime axetil, finasteride, metoprolol tartrate, tamsulosin (Flomax) Otoscopy: Right Ear: Unremarkable Left Ear: Completely occluding cerumen. Removed w/o incident using EarWax MD drops, l Tympanometry: Tympanometry performed due to: To determine if cerumen blockage is fully occluding canal(s) Right Ear: Normal Middle Ear System (Type A) Left Ear: Non-compliant Middle Ear System (Type B), Small ear canal volume and non-compliant, consistent with occlusion Hearing Evaluation: Transducer(s) Used: Insert Earphones, Bone Conduction Method: Conventional Audiometry Stimuli Used: Pure Tones Right Ear: Description of Hearing: Normal hearing from 250-500 Hz, sloping to a moderate to moderately-severe sensorineural hearing loss from 750-8000 Hz. Left Ear: Description of Hearing: Mild sloping to severe sensorineural hearing loss from 250-8000 Hz. Speech Recognition Threshold (SRT): Method Used: Monitored Live Voice Stimuli Used: Spondee Words Right Ear: 40 dBHL Left Ear: 40 dBHL Word Discrimination: Method: Monitored Live Voice, Recorded Lists Word Lists Used: NU-6 Right Ear: Recorded: 48% at 85 dBHL, MLV: 60% at 90 dBHL Left Ear: Recorded: 24% at 90 dBHL, MLV: 40% at 90 dBHL Most Comfortable Level (MCL): Right Ear: 90 dBHL Left Ear: 90 dBHL Recommendations: Audiological re-evaluation in one year. Trial with amplification is recommended. Medical clearance from a physician is required before fitting. Based on type and degree of hearing loss, as well as Mr. Richard's shared listening needs/concerns, binaural hearing aids are recommended. Discussed options with Mr. Richard and his son. Interested in trying rechargeable sengtpzc-rh-cef-canal style hearing aids. Hearing aids are covered through Mr. Richard's insurance. Once MD clearance is received, hearing aids will be ordered. A hearing aid fitting will be scheduled once materials arrive. Diagnosis: Primary Diagnosis: H90.3 Bilateral Sensorineural Hearing Loss Secondary Diagnosis: H61.22 Impacted Cerumen, Left Ear Services Performed: Services Performed: Comprehensive Audiological Evaluation (CPT 62701) Tympanometry (CPT 35758) Signature: Provider: Sandhya Sargent, CCC-A
== END 2021-10-26 13:03 | disposition home or self-care (01) ==
LOC: HO.SH 13:02
PROVIDERS: Visit Provider Internal Medicine
DX: H91.90 Unspecified hearing loss, unspecified ear (principal)
CPT/HCPCS: 92557; 92567; 92591

== ENCOUNTER 2021-12-03 13:50 | Inpatient (IN) | payer MEDICARE, MEDICAID, SELFPAY ==
--- NOTE | ~2021-12-03 | CT_ITS ---
EXAMINATION: CT ABDOMEN AND PELVIS WITH CONTRAST CLINICAL INFORMATION: Weakness with nausea, vomiting, and diarrhea COMPARISON: CT of the abdomen and pelvis 09/24/2019 TECHNIQUE: Multidetector volumetric images were obtained from the superior aspect of the liver through the pubic symphysis following administration 85 mL of Omnipaque 350 intravenous contrast. Sagittal and coronal reformatted images were obtained on the technologist's workstation. Oral contrast: No This CT examination was performed using dose optimization techniques as appropriate, variously including the following: *Automated exposure control *Adjustment of mA and/or kV according to patient size (this includes techniques or standardized protocols for targeted exams where dose is matched to indication/reason for exam; i.e. extremities or head) *Use of iterative reconstruction technique DLP: 842 mGy-cm FINDINGS: LUNG BASES: There is dependent atelectasis at the bilateral lung bases. LIVER, GALLBLADDER, AND BILIARY TREE: Again demonstrated are several hepatic cysts measuring up to 4.8 cm. Multiple subcentimeter lesions are too small to characterize but also likely represent cysts. The liver is normal in size and contour. No intrahepatic biliary ductal dilatation. The gallbladder is unremarkable with no evidence of radiopaque gallstones, gallbladder wall thickening, or obvious pericholecystic inflammatory changes. PANCREAS: Unremarkable. SPLEEN: Unremarkable. ADRENAL GLANDS: Unremarkable. KIDNEYS AND URETERS: The kidneys are normal in size, shape, and attenuation. No hydronephrosis, hydroureter, or calculi seen. No perinephric stranding. There is a simple appearing cyst in the inferior pole of the left kidney that measures up to 1 cm. There is a hypodense area in the superior pole of the left kidney, adjacent to calyces, that may represent a calyceal diverticulum. BLADDER: There is diffuse bladder wall thickening with mild surrounding stranding. There is a small diverticulum along the lateral aspect of the bladder, which is unchanged. GASTROINTESTINAL TRACT: There is a small hiatal hernia. The stomach and small bowel are not dilated. No evidence of obstruction. Normal appendix. There is diverticulosis of the colon without evidence of diverticulitis. ABDOMINAL WALL: No significant hernia is appreciated. LYMPH NODES: Again demonstrated is an amorphous tissue in the retroperitoneum around the abdominal aorta at the level of the renal hilum, extending inferiorly. The radius AP thickness measures up to 1.6 cm, previously 1.8 cm (series 14, image 50). There remains some amorphous tissue around the inferior vena cava, which measures up to 1.1 cm, previously 1.3 cm (series 14, image 45) VASCULAR: Scattered atherosclerotic calcifications. Normal caliber of the abdominal aorta. PELVIC VISCERA: Redemonstration of enlarged prostate gland with central calcification. OSSEOUS STRUCTURES: There is no acute or suspicious osseous abnormality. Degenerative changes of the lower lumbar spine. CT/CT abdomen pelvis w con IMPRESSION: Thickened bladder wall, increased since the prior study. Consider correlation with urinalysis to evaluate for cystitis. Bladder diverticulum is again demonstrated. Redemonstration of retroperitoneal matted adenopathy/amorphous soft tissue, similar in appearance the prior study. Diverticulosis of the colon without evidence of diverticulitis. No evidence for bowel obstruction. Redemonstration of multiple hepatic cysts.
--- NOTE | ~2021-12-03 | XR_ITS ---
EXAMINATION: XR CHEST CLINICAL INFORMATION: Increased weakness COMPARISON: Chest 06/05/2021 TECHNIQUE: 2 views of the chest were obtained. FINDINGS: The lungs are hypoexpanded but clear of acute process. The heart size and pulmonary vascularity is normal. There is a right venous port with its tip in the distal SVC. No gross bony abnormality seen. XR/XR chest 2V IMPRESSION: Unremarkable chest exam
--- NOTE | ~2021-12-03 | CT_ITS ---
EXAMINATION: CT HEAD WITHOUT CONTRAST CLINICAL INFORMATION: Generalized weakness. COMPARISON: None TECHNIQUE: Contiguous axial imaging was performed from the skull base to vertex without intravenous administration of contrast. This CT examination was performed using dose optimization techniques as appropriate, variously including the following: *Automated exposure control *Adjustment of mA and/or kV according to patient size (this includes techniques or standardized protocols for targeted exams where dose is matched to indication/reason for exam; i.e. extremities or head) *Use of iterative reconstruction technique DLP: 1543 mGy-cm FINDINGS: There is no evidence of acute intracranial hemorrhage or territorial infarction. No abnormal mass effect or midline shift is seen. [place] to white matter differentiation is well preserved. No extra-axial fluid collections are identified. There is dystrophic bibasilar ganglia calcifications and a small lacunar infarct right internal capsule and right basal ganglia.. The lateral ventricles are symmetrical in size and configuration but mildly enlarged. There is mild prominence of cortical sulci as well. There is diffuse periventricular hypodensity suggestive of chronic small vessel ischemic changes. Bone windows reveal no calvarial abnormality. There is no scalp soft tissue abnormality either. Bilateral paranasal sinuses and mastoid air cells are well-aerated CT/CT head/brain wo con IMPRESSION: No acute intracranial process seen. Age-related cerebral volume loss. Lacunar infarction right basal ganglia and internal capsule.
--- NOTE | 2021-12-03 07:41 | ECG_ITS ---
Test Reason : tachycardia Blood Pressure : / mmHG Vent. Rate : 121 BPM Atrial Rate : 121 BPM P-R Int : 172 ms QRS Dur : 068 ms QT Int : 310 ms P-R-T Axes : 060 -19 -01 degrees QTc Int : 440 ms Artifact in tracing Sinus tachycardia Nonspecific ST abnormality Borderline ECG When compared with ECG of 03-DEC-2021 16:24, No significant change was found Referred By: Shahnaz Olson Electronically Signed By:DOUG MARIEE
[2021-12-03 14:12] VITALS: BP 138/99; PULSE 88; RESP 19; TEMP 37.4; O2SAT 95; BMI 25.8
--- NOTE | 2021-12-03 14:24 | ECG_ITS ---
Test Reason : increased weakness Blood Pressure : / mmHG Vent. Rate : 093 BPM Atrial Rate : 000 BPM P-R Int : 000 ms QRS Dur : 070 ms QT Int : 366 ms P-R-T Axes : 000 -10 008 degrees QTc Int : 455 ms Artifact in tracing Probable sinus rhythm Minimal voltage criteria for LVH, may be normal variant ( R in aVL ) Abnormal ECG When compared with ECG of 05-JUN-2021 10:03, No significant changes seen Referred By: Shahnaz Olson Electronically Signed By:DOUG MARIEE
--- NOTE | 2021-12-03 14:32 | ED_ITS ---
HPI - Weakness General Chief complaint: General Medical Stated complaint: INCREASED WEAKNESS, UTI Time Seen by Provider: 12/03/21 14:23 Source: patient Mode of arrival: ambulatory Limitations: other (Poor historian and history of dementia) History of Present Illness HPI Narrative: 71-year-old female with a past medical history of Dementia, BPH, prostate cancer, follicular lymphoma with bone marrow involvement, CVA with left-sided residual weakness, hypertension, hyperlipidemia, lumbar spinal stenosis, recurrent UTIs who is not on any blood thinners presenting to the ED via EMS after son and nurse were concerned that on Saturday night the patient has had increased weakness increased confusion complaining of worsening back pain worse today with associated nausea and vomiting. I obtained a history mainly from the sound due to the patient has a history of dementia and is a very poor historian. Son reports that when this has happened in the past he has had UTIs. Apparently he was seen by Dr. Saldana and prescribed Bactrim on 11/28/2021 for UTI and the patient took a few medications and he gave him some diarrhea therefore he discontinued this medication he did not complete the course of the antibiotics for the UTI. Son reports that on Saturday he went out with some friends and when he came back the patient/his father was in the bathtub and he cannot get up by himself and then the son was able to get him up and into the bed. Although his weakness progressively worsened and then this morning he was unable to get up and the son was unable to get him up therefore he told him that he was going to send him to the emergency department. Patient is not on any blood thinners. MD Complaint: generalized weakness Onset (ago): day(s) (2) Duration: constant Location: generalized Migration: none Severity: moderate Relieving factors: movement Exacerbating factors: none Context: history of similar (Has had recurrent UTIs and usually gets like this when this happens per the son) Associated symptoms: nausea/vomiting Related Data Home Medications Medication Instructions Recorded Confirmed acetaminophen 500 mg tablet 500 mg PO Q6H PRN 06/05/21 10/16/21 (Acetaminophen Extra Strength) Previous Rx's Medication Instructions Recorded metoprolol tartrate 50 mg tablet 50 mg PO BID #180 tab 11/22/20 finasteride 5 mg tablet 5 mg PO DAILY 90 Days #90 tab 05/31/21 atorvastatin 40 mg tablet 40 mg PO DAILY #90 tab 07/26/21 terazosin 10 mg capsule 10 mg PO BEDTIME 90 Days #90 cap 08/11/21 Depend Underwear For Men Alexy #64 ea NS 12/01/21 (diaper,brief,adult,disposable) Washable bed pad #10 ea 12/01/21 hydrocortisone 2.5 % topical cream 1 appl TOPICAL BID PRN #20 g 12/01/21 sulfamethoxazole 800 1 tab PO BID 7 Days #14 tab 12/01/21 mg-trimethoprim 160 mg tablet (Bactrim DS) Allergies Allergy/AdvReac Type Severity Reaction Status Date / Time No Known Allergies Allergy Verified 12/01/21 14:41 [No Known Allergies*] Review of Systems Review of Systems: Constitutional : No Weight loss, No Fever, No Chills, No Ni ght Sweats, + Fatigue, + Malaise ENT/Mouth : No Hearing loss, No Ear Pain, No Nasal Congestion, No Sinus Pain, No Hoarseness, No sore throat, No Rhinorrhea, No Swallowing Difficulty Eyes: No Eye Pain, No Swelling, No Redness, No Foreign Body, No Discharge, No Vision Changes Cardiovascular : No Chest Pain, No SOB, No Dyspnea on Exertion, No Orthopnea, No Edema, No Palpitations Respiratory : No Cough, No Sputum, No Wheezing, No Smoke Exposure, No Dyspnea Gastrointestinal : + Nausea, + Vomiting, No Diarrhea, No Constipation, No abdominal Pain, No Hematochezia, No Melena Genitourinary : no irregular bleeding, No Dysuria, No Urinary Frequency, No Hematuria, No Urinary Incontinence, No Urgency, No Flank Pain, No Urinary Flow Changes, No Hesitancy Musculoskeletal : + back pain, No joint pain, No Myalgias, No Joint Swelling Skin : No Skin Lesions, No rash Neuro : + General Weakness, No Focal weakness, No Numbness, No Paresthesias, No Loss of Consciousness, No Dizziness, No Headache Psych : No Anxiety/Panic, No Depression, No SI/HI/AH/VH, No Social Issues, Heme/Lymph: No Bruising, No Bleeding,No Lymphadenopathy Endocrine : No Polyuria, No Polydipsia, No Temperature Intolerance Yes all other systems are reviewed and are negative and Other (Limited due to history of dementia/poor historian obtained from son) [facility] Past Medical History Attestation statement: The following information was validated with the patient. Medical History Abnormal computed tomography angiography (CTA) Annual physical exam BPH (benign prostatic hyperplasia) CVA (cerebral vascular accident) Dementia Follicular lymphoma Hearing loss HTN (hypertension) Hyperglycemia Hyperlipidemia Lumbar spinal stenosis Recurrent UTI Surgical History H/O colonoscopy Family History Family History Father Colon cancer HTN (hypertension) Brother Non-Hodgkin lymphoma HTN (hypertension) Sister HTN (hypertension) Mother HTN (hypertension) TIA (transient ischemic attack) Social History Social History Household Members: Unknown / Unable to assess Household Members Other:: He mentioned 2 dogs and a person, but not answering now. Housing: House Housing Other:: Unsure if this is correct. Alcohol intake: former Patient Tobacco Use Status: Former Tobacco user Quit Date: over 30 years ago e-Cigarette/Vaping Use: Never Used Use of substances other than those prescribed or required for medical reasons: No Advance Directives: Yes Advance Directives Information Provided: Yes Advance Directives on File: No service: No Current occupational status: retired Physical Exam Vital Signs: Vital Signs: Last Vital Signs Temp 99.4 F 12/03/21 14:12 Pulse 88 12/03/21 14:12 Resp 19 12/03/21 14:12 BP 138/99 H 12/03/21 14:12 Pulse Ox 95 12/03/21 14:12 BMI result Body Mass Index 25.8 Vital signs have been reviewed as normal and appeared to be correct. Blood pressure 138/99. Heart rate normal. Respiration rate normal. Temperature normal. Oxygen saturation normal. Appearance: Alert. Oriented X3. No acute distress. Head: Normal external exam. Normocephalic. Atraumatic. Able to rotate head bilaterally. Eyes: PERRLA. EOMI. No nystagmus noted. Conjunctiva and sclera normal. Eyelids normal. Corneal reflex normal. ENT: EAC normal. TM's Normal. Hearing normal. Pharynx normal. Uvula midline. tongue midline. Moist mucous membranes. No trismus noted. No drooling noted. No muffled voice noted. No nystagmus noted. Neck: Normal inspection. Neck supple. FROM. No adenopathy. Trachea midline. Thyroid Normal. No meningeal signs. No neck mass noted. CVS: Normal heart rate and rhythm. Heart sound normal. No murmurs noted. Pulses normal throughout. Respiratory: No respiratory distress. Painless inspiration. Breath sounds normal. No wheezes/rales/rhonchi noted. Chest nontender. No accessory muscle usage noted or decreased air movement noted. Abdomen: Soft and nontender. Bowel sounds normal in all 4 quadrants. No distention noted. No organomegaly noted. No visible injury noted. Back: No CVA tenderness. Full range of motion noted. Skin: Skin warm and dry. Normal skin color. Normal skin turgor. No rashes/le sions/lacerations noted. Extremities: No lower extremity edema. No CVA tenderness is noted. Extremities exhibit normal range of motion. Extremities nontender. Able to shrug shoulders bilaterally and keep up against resistance. Neuro: Oriented X 3. No motor deficit. No sensory deficit. Reflexes normal. Moving all extremities. No focal motor deficits. Cranial nerves II-XI intact bilaterally. Facial strength normal. Normal cognition. Speech normal. Strength 5/5 throughout. No pronator drift. No tremor noted. No fasciculations noted. No rigidity noted. Muscle tone normal throughout. No asterixis noted. [id number] test normal. Hand drop from overhead Misses face. NIHSS score 0. Vascular: +2 radial pulses b/l. + 2 distal pedal pulses b/l. Bilateral capillary refill normal to upper and lower extremity fingernails. No cyanosis noted to upper lower extremity. Course Course Course Narrative: 14:30pm - 71-year-old female with a past medical history of Dementia, BPH, prostate cancer, follicular lymphoma with bone marrow involvement, CVA with left-sided residual weakness, hypertension, hyperlipidemia, lumbar spinal stenosis, recurrent UTIs who is not on any blood thinners presenting to the ED via EMS after son and nurse were concerned that on Yann night the patient has had increased weakness increased confusion complaining of worsening back pain worse today with associated nausea and vomiting. I obtained a history mainly from the sound due to the patient has a history of dementia and is a very poor historian. Son reports that when this has happened in the past he has had UTIs. Apparently he was seen by Dr. Saldana and prescribed Bactrim on 11/28/2021 for UTI and the patient took a few medications and he gave him some diarrhea therefore he discontinued this medication he did not complete the course of the antibiotics for the UTI. Son reports that on Saturday he went out with some friends and when he came back the patient/his father was in the bathtub and he cannot get up by himself and then the son was able to get him up and into the bed. Although his weakness progressively worsened and then this morning he was unable to get up and the son was unable to get him up therefore he told him that he was going to send him to the emergency department. Patient is not on any blood thinners. Plan: Labs, blood cultures, lactic acid, UA, CT scan of brain, CT scan of abdomen and pelvis IV contrast, EKG then re-evaluate. Reevaluation(s) Reevaluation #1: - labs reviewed patient's platelet count at 102 he has had low platelet counts in the past. PT INR 13.7/1.2. Creatinine 1.52. Total bilirubin 1.5. Alkaline phosphate 145. Otherwise all other labs are within normal limits. UA positive for nitrates therefore patient with UTI will start on Levaquin as discussed with Dr. Saldana as he was passing by seeing another patient. - patient negative for COVID and flu. - awaiting CT scan abdomen and pelvis with IV contrast and a CT scan of brain without contrast plan is to admit for generalized weakness with increased confusion with HALEY/UTI and nausea/vomiting/diarrhea. - Sign out to LAITH Arias pending CT scans. Time: 16:18 [facility] - Weakness Medical Records Attestation: I reviewed the patient's medical records. Lab Data Attestation: I reviewed the patient's lab results. Result diagrams: 12/03/21 15:23 12/03/21 15:23 Labs: Lab Results 12/03/21 12/03/21 12/03/21 Range/Units 15:23 15:23 15:23 WBC 5.7 (4.8-10.8) X10*3/uL RBC 5.57 (4.60-5.80) X10*6/uL Hgb 16.0 (14.0-18.0) g/dl Hct 47.5 (42.0-52.0) % MCV 85.3 (80.0-98.0) fL MCH 28.7 (27.0-33.0) pg MCHC 33.7 (31.0-36.0) g/dl RDW 13.9 (11.0-16.0) % Plt Count 102 L D (160-400) X10*3/uL MPV 9.9 (9.4-12.4) fL Immature Gran % (Auto) 0.5 H (0.0-0.4) % Neut % (Auto) 90.8 H (45-73) % Lymph % (Auto) 3.0 L (20-40) % Ida % (Auto) 5.3 (2-11) % Eos % (Auto) 0.2 (0-4) % Baso % (Auto) 0.2 (0-2) % Lymph # (Auto) 0.2 L (1.2-4.9) X10*3/uL Ida # (Auto) 0.3 (0.1-1.2) X10*3/uL Eos # (Auto) 0.0 (0.0-0.4) X10*3/uL Baso # (Auto) 0.0 (0.0-0.2) X10*3/uL Abs Immat Gran (auto) 0.03 (0.00-0.03) X10*3/uL Absolute Neuts (auto) 5.1 (2.0-8.3) x10*3/uL Absolute Nucleated RBC 0.000 (0.0-0.012) X10*3/uL Nucleated RBC % (auto) 0.0 (0.0-0.2) /100WBC PT (9.9-13.0) SEC INR (0.9-1.1) Sodium (135-145) mmol/L Potassium (3.3-5.1) mmol/L Chloride (96-108) mmol/L Carbon Dioxide (22-29) mmol/L Anion Gap (12-20) BUN (9-16) mg/dL Creatinine (0.5-1.4) mg/dL Estim Creat Clear Calc Estimated GFR Random Glucose (60-115) mg/dL Lactic Acid (0.5-2.0) mmol/L Calcium (8.4-10.2) mg/dL Magnesium (1.6-2.6) mg/dL Total Bilirubin (0.0-1.0) mg/dL AST (5-37) U/L ALT (0-40) U/L Alkaline Phosphatase (39-117) U/L Total Protein (6.5-8.0) g/dL Albumin (3.5-5.0) g/dL Urine Color Urine Appearance Urine pH (5.0-8.0) Ur Specific [place] (1.005-1.025) Urine Protein (NEG-TRACE) MG/DL Urine Glucose (UA) (NEG) MG/DL Urine Ketones (NEG) MG/DL Urine Blood (NEG) Urine Nitrite (NEG) Ur Leukocyte Esterase (NEG) Urine RBC (0) /HPF Urine WBC (0-4) /HPF Ur Squamous Epith Cells /LPF Urine Bacteria /LPF Urine Mucus /LPF COVID-19 (JAMAL) Negative (Negative) COVID-19 Clin Com See Note Influenza Type A (DANDY) Negative (Negative) Influenza Type B (DANDY) Negative (Negative) Influenza A & B Note See Note 12/03/21 12/03/21 12/03/21 Range/Units 15:23 15:23 15:23 WBC (4.8-10.8) X10*3/uL RBC (4.60-5.80) X10*6/uL Hgb (14.0-18.0) g/dl Hct (42.0-52.0) % MCV (80.0-98.0) fL MCH (27.0-33.0) pg MCHC (31.0-36.0) g/dl RDW (11.0-16.0) % Plt Count (160-400) X10*3/uL MPV (9.4-12.4) fL Immature Gran % (Auto) (0.0-0.4) % Neut % (Auto) (45-73) % Lymph % (Auto) (20-40) % Ida % (Auto) (2-11) % Eos % (Auto) (0-4) % Baso % (Auto) (0-2) % Lymph # (Auto) (1.2-4.9) X10*3/uL Ida # (Auto) (0.1-1.2) X10*3/uL Eos # (Auto) (0.0-0.4) X10*3/uL Baso # (Auto) (0.0-0.2) X10*3/uL Abs Immat Gran (auto) (0.00-0.03) X10*3/uL Absolute Neuts (auto) (2.0-8.3) x10*3/uL Absolute Nucleated RBC (0.0-0.012) X10*3/uL Nucleated RBC % (auto) (0.0-0.2) /100WBC PT 13.7 H (9.9-13.0) SEC INR 1.2 H (0.9-1.1) Sodium 137 (135-145) mmol/L Potassium 4.5 (3.3-5.1) mmol/L Chloride 105 (96-108) mmol/L Carbon Dioxide 23 (22-29) mmol/L Anion Gap 14 (12-20) BUN 10 (9-16) mg/dL Creatinine 1.52 H (0.5-1.4) mg/dL Estim Creat Clear Calc 45.3 Estimated GFR 45 Random Glucose 113 D (60-115) mg/dL Lactic Acid 1.2 (0.5-2.0) mmol/L Calcium 9.3 (8.4-10.2) mg/dL Magnesium 2.0 (1.6-2.6) mg/dL Total Bilirubin 1.5 H (0.0-1.0) mg/dL AST 21 (5-37) U/L ALT 33 (0-40) U/L Alkaline Phosphatase 145 H D (39-117) U/L Total Protein 6.9 (6.5-8.0) g/dL Albumin 4.7 (3.5-5.0) g/dL Urine Color Urine Appearance Urine pH (5.0-8.0) Ur Specific [place] (1.005-1.025) Urine Protein (NEG-TRACE) MG/DL Urine Glucose (UA) (NEG) MG/DL Urine Ketones (NEG) MG/DL Urine Blood (NEG) Urine Nitrite (NEG) Ur Leukocyte Esterase (NEG) Urine RBC (0) /HPF Urine WBC (0-4) /HPF Ur Squamous Epith Cells /LPF Urine Bacteria /LPF Urine Mucus /LPF COVID-19 (JAMAL) (Negative) COVID-19 Clin Com Influenza Type A (DANDY) (Negative) Influenza Type B (DANDY) (Negative) Influenza A & B Note 12/03/21 Range/Units 15:59 WBC (4.8-10.8) X10*3/uL RBC (4.60-5.80) X10*6/uL Hgb (14.0-18.0) g/dl Hct (42.0-52.0) % MCV (80.0-98.0) fL MCH (27.0-33.0) pg MCHC (31.0-36.0) g/dl RDW (11.0-16.0) % Plt Count (160-400) X10*3/uL MPV (9.4-12.4) fL Immature Gran % (Auto) (0.0-0.4) % Neut % (Auto) (45-73) % Lymph % (Auto) (20-40) % Ida % (Auto) (2-11) % Eos % (Auto) (0-4) % Baso % (Auto) (0-2) % Lymph # (Auto) (1.2-4.9) X10*3/uL Ida # (Auto) (0.1-1.2) X10*3/uL Eos # (Auto) (0.0-0.4) X10*3/uL Baso # (Auto) (0.0-0.2) X10*3/uL Abs Immat Gran (auto) (0.00-0.03) X10*3/uL Absolute Neuts (auto) (2.0-8.3) x10*3/uL Absolute Nucleated RBC (0.0-0.012) X10*3/uL Nucleated RBC % (auto) (0.0-0.2) /100WBC PT (9.9-13.0) SEC INR (0.9-1.1) Sodium (135-145) mmol/L Potassium (3.3-5.1) mmol/L Chloride (96-108) mmol/L Carbon Dioxide (22-29) mmol/L Anion Gap (12-20) BUN (9-16) mg/dL Creatinine (0.5-1.4) mg/dL Estim Creat Clear Calc Estimated GFR Random Glucose (60-115) mg/dL Lactic Acid (0.5-2.0) mmol/L Calcium (8.4-10.2) mg/dL Magnesium (1.6-2.6) mg/dL Total Bilirubin (0.0-1.0) mg/dL AST (5-37) U/L ALT (0-40) U/L Alkaline Phosphatase (39-117) U/L Total Protein (6.5-8.0) g/dL Albumin (3.5-5.0) g/dL Urine Color YELLOW Urine Appearance CLOUDY Urine pH 6.0 (5.0-8.0) Ur Specific [place] 1.020 (1.005-1.025) Urine Protein TRACE (NEG-TRACE) MG/DL Urine Glucose (UA) NEG (NEG) MG/DL Urine Ketones 5 (NEG) MG/DL Urine Blood 2+ H (NEG) Urine Nitrite POS H (NEG) Ur Leukocyte Esterase 3+ H (NEG) Urine RBC 1-4 (0) /HPF Urine WBC TNTC H (0-4) /HPF Ur Squamous Epith Cells TRACE /LPF Urine Bacteria 3+ /LPF Urine Mucus 1+ /LPF COVID-19 (JAMAL) (Negative) COVID-19 Clin Com Influenza Type A (DANDY) (Negative) Influenza Type B (DANDY) (Negative) Influenza A & B Note Imaging Data Chest x-ray: Attestation: I personally reviewed and interpreted this imaging study as follows: Radiologist's impression: FINDINGS: The lungs are hypoexpanded but clear of acute process. The heart size and pulmonary vascularity is normal. There is a right venous port with its tip in the distal SVC. No gross bony abnormality seen. XR/XR chest 2V IMPRESSION: Unremarkable chest exam ECG Data Attestation: I personally reviewed and interpreted this ECG as follows: ECG interpretation date: 12/03/21 ECG interpretation time: 16:24 Interpretation: Normal sinus rhythm with ventricular rate of [address] abnormalities and prolonged QT at 394 milliseconds otherwise no acute ischemic changes are noted. Similar when compared to prior EKG on 06/05/2021. Critical Care Time Critical Care Time Critical Care Time: Yes Total Critical Care Time: 60 Attestation: I personally attest to this time spent taking care of the patient Discharge Plan Discharge Clinical Impression: Acute renal failure, Nausea & vomiting, General weakness, UTI (urinary tract infection), Acute dehydration Patient Disposition: Admitted As Inpatient
[2021-12-03 15:29] LABS: MANUAL DIFF FLAG NO
[2021-12-03 15:31] LABS: Mean Corpuscular Hemoglobin 28.7 pg (27.0-33.0); PLT CLUMP 1; Red Cell Distribution Width 13.9 % (11.0-16.0); SCAN SMEAR FLAG 1
[2021-12-03 15:33] LABS: Basophils Percent Auto 0.2 % (0-2); Eosinophils Percent Auto 0.2 % (0-4); Hematocrit 47.5 % (42.0-52.0); Imm Gran Abs Auto 0.03 X10*3/uL (0.00-0.03); Imm Gran Pct Auto 0.5 % (0.0-0.4); Lymphocytes Absolute Auto 0.2 X10*3/uL (1.2-4.9); Mean Corpuscular HGB Conc 33.7 g/dl (31.0-36.0); Mean Corpuscular Volume 85.3 fL (80.0-98.0); Mean Platelet Volume 9.9 fL (9.4-12.4); Monocytes Absolute Auto 0.3 X10*3/uL (0.1-1.2); Monocytes Percent Auto 5.3 % (2-11); Neutrophils Absolute Auto 5.1 x10*3/uL (2.0-8.3); Neutrophils Percent Auto 90.8 % (45-73); Red Blood Count 5.57 X10*6/uL (4.60-5.80)
[2021-12-03 15:34] LABS: Platelet Count 102 X10*3/uL (160-400); White Blood Count 5.7 X10*3/uL (4.8-10.8)
[2021-12-03 15:38] LABS: INTERNATIONAL NORM RATIO 1.2 (0.9-1.1); Prothrombin Time 13.7 SEC (9.9-13.0)
[2021-12-03] MEDS: ondansetron HCL 4 MG/2 ML VIAL IVPUSH (15:40)
[2021-12-03] MEDS: Acetaminophen 325 MG TABLET 975 MG PO (15:40)
[2021-12-03] MEDS: 0.9 % Sodium Chloride 1,000 ML 999 ML IVCONT (15:40)
[2021-12-03 15:44] LABS: Lactic Acid 1.2 mmol/L (0.5-2.0)
[2021-12-03 15:49] LABS: Alanine Aminotransferase 33 U/L (0-40); Albumin Level 4.7 g/dL (3.5-5.0); Alkaline Phosphatase 145 U/L (39-117); Anion Gap 14 (12-20); Aspartate Amino Transferase 21 U/L (5-37); Bilirubin Total 1.5 mg/dL (0.0-1.0); Blood Urea Nitrogen 10 mg/dL (9-16); COVID-19 Test Negative (Negative); Calcium 9.3 mg/dL (8.4-10.2); Carbon Dioxide 23 mmol/L (22-29); Chloride 105 mmol/L (96-108); Creatinine Clr Calc Pharmacy 45.3; Estimated Glomerular Filt Rate 45; Glucose Random 113 mg/dL (60-115); IDNOW Serial# 55D5AD1C; Potassium 4.5 mmol/L (3.3-5.1); Sodium 137 mmol/L (135-145); Total Protein 6.9 g/dL (6.5-8.0)
[2021-12-03 15:53] LABS: Influenza A Negative (Negative); Influenza B2 Negative (Negative)
[2021-12-03 16:05] LABS: Appearance Urine CLOUDY; Color Urine YELLOW; Glucose Urine UA NEG (NEG); Leukocyte Esterase Urine 3+ (NEG); Nitrite Urine POS (NEG); UACC Culture Trigger YES; Urine Blood 2+ (NEG); Urine Ketones 5 MG/DL (NEG); Urine Protein TRACE MG/DL (NEG-TRACE)
[2021-12-03 16:15] LABS: Bacteria Urine 3+ /LPF; Mucus Urine 1+ /LPF; Squamous Epithelial Cell Urine TRACE /LPF; WBC Urine TNTC /HPF (0-4)
[2021-12-03] MEDS: iohexoL 350 MG/ML 100 ML INFUS..BTL 85 ML IV (16:19)
--- NOTE | 2021-12-03 16:20 | ECG_ITS ---
Test Reason : repeat ekg Blood Pressure : / mmHG Vent. Rate : 091 BPM Atrial Rate : 091 BPM P-R Int : 180 ms QRS Dur : 074 ms QT Int : 394 ms P-R-T Axes : 049 -04 007 degrees QTc Int : 484 ms Normal sinus rhythm Nonspecific ST abnormality Prolonged QT Abnormal ECG When compared with ECG of 03-DEC-2021 14:44, No significant changes seen Referred By: Shahnaz Olson Electronically Signed By:DOUG MARIEE
[2021-12-03 16:28] LABS: Troponin-I High Sensitivity < 3.5 ng/L (<3.5-35.0)
[2021-12-03] MEDS: levoFLOXacin/D5W 750 MG/150 ML PIGGYBACK 100 MG IV (16:29)
--- NOTE | 2021-12-03 18:09 | P.HPHOSP_ITS ---
History of Present Illness Date of Service: 12/03/21 Chief Complaint: confusion 71-year-old female with a past medical history of Dementia, BPH, prostate cancer, follicular lymphoma with bone marrow involvement, CVA with left-sided residual weakness, hypertension, hyperlipidemia, lumbar spinal stenosis, recurrent UTIs who is not on any blood thinners presenting to the ED via EMS after son and nurse were concerned that on Saturday night the patient has had increased weakness increased confusion complaining of worsening back pain worse today with associated nausea and vomiting.Pt has ?history of dementia and is a very poor historian.? Son reports that when this has happened in the past he has had UTIs.? Apparently he was seen by Dr. Saldana and prescribed Bactrim on 11/28/2021 for UTI and the patient took a few medications and he gave him some diarrhea therefore he discontinued this medication he did not complete the course of the antibiotics for the UTI.? Son reports that on Saturday he went out with some friends and when he came back the patient/his father was in the bathtub and he cannot get up by himself and then the son was able to get him up and into the bed.? Although his weakness progressively worsened and then this morning he was unable to get up and the son was unable to get him up therefore he told him that he was going to send him to the emergency department.? Patient is not on any blood thinners. ER Course: Urine with active sediment; CT abdomen pelvis consistent with thickened bladder wall increased size from previous study consideration for acute cystitis. Otherwise CT head brain abdomen pelvis unremarkable. Given dose of Levaquin; call for admit Review of Systems Review of Systems: Unable to obtain secondary confusion [facility] Medical History Abnormal computed tomography angiography (CTA) Annual physical exam BPH (benign prostatic hyperplasia) CVA (cerebral vascular accident) Dementia Follicular lymphoma Hearing loss HTN (hypertension) Hyperglycemia Hyperlipidemia Lumbar spinal stenosis Recurrent UTI Family History Father Colon cancer HTN (hypertension) Brother Non-Hodgkin lymphoma HTN (hypertension) Sister HTN (hypertension) Mother HTN (hypertension) TIA (transient ischemic attack) Surgical History H/O colonoscopy Social History Household Members: Unknown / Unable to assess Household Members Other:: He mentioned 2 dogs and a person, but not answering now. Housing: House Housing Other:: Unsure if this is correct. Alcohol intake: former Patient Tobacco Use Status: Former Tobacco user Quit Date: over 30 years ago e-Cigarette/Vaping Use: Never Used Use of substances other than those prescribed or required for medical reasons: No Advance Directives: Yes Advance Directives Information Provided: Yes Advance Directives on File: No service: No Current occupational status: retired [employer] Allergies Allergy/AdvReac Type Severity Reaction Status Date / Time No Known Allergies Allergy Verified 12/01/21 14:41 [No Known Allergies*] Active Medications: Current Medications Acetaminophen (Acetaminophen 325 Mg Tablet) 650 mg PO Q6H PRN PRN Reason: Pain, Mild (Pain Scale 1-3) Enoxaparin Sodium (Enoxaparin Sodium 40 Mg/0.4 Ml Syringe) 40 mg SUBCUT Q24H DEONDRE Dextrose/Sodium Chloride (D51/2ns) 1,000 mls @ 100 mls/hr IVCONT .Q10H DEONDRE Levofloxacin (Levaquin) 500 mg in 100 mls @ 100 mls/hr IV Q24H DEONDRE Ondansetron HCl (Ondansetron Hcl 4 Mg/2 Ml Vial) 4 mg IVPUSH Q8H PRN PRN Reason: Nausea and Vomiting Pharmacy Consult (Consult Rx Perform Med Rec) 1 each MISCELLANE ONCE PRN PRN Reason: Consult order Sodium Chloride (0.9 % Sodium Chloride Flush 3 Ml Syringe) 3 ml IVFLUSH QSHIFT DEONDRE Home Medications Medication Instructions Recorded Confirmed Last Taken Type acetaminophen 500 mg tablet 500 mg PO Q6H PRN 06/05/21 10/16/21 Unknown History (Acetaminophen Extra Strength) Physical Exam Vital Signs and Narrative: Vital Signs: Last Vital Signs Temp 99.4 F 12/03/21 14:12 Pulse 88 12/03/21 14:12 Resp 19 12/03/21 14:12 BP 138/99 H 12/03/21 14:12 Pulse Ox 95 12/03/21 14:12 BMI result Body Mass Index 25.8 Const: Other: Awake alert confused HENMT: Other: Membranes moist Resp: Other: Clear to auscultation bilaterally; no rales rhonchi wheezes Cardio: Other: No S4; positive S1-S2; no S3 murmurs rubs or gallops GI: Other: Soft nontender nondistended with normoactive bowel sounds Extrem: Other: No edema bilaterally Results Labs CBC and Chem 7: 12/03/21 15:23 12/03/21 15:23 Labs: Laboratory Results - last 24 hr 12/03/21 12/03/21 12/03/21 15:23 15:23 15:23 MCV 85.3 MCH 28.7 MCHC 33.7 RDW 13.9 Plt Count 102 L D MPV 9.9 Immature Gran % (Auto) 0.5 H Neut % (Auto) 90.8 H Lymph % (Auto) 3.0 L [place] % (Auto) 5.3 Eos % (Auto) 0.2 Baso % (Auto) 0.2 Lymph # (Auto) 0.2 L [place] # (Auto) 0.3 Eos # (Auto) 0.0 Baso # (Auto) 0.0 Abs Immat Gran (auto) 0.03 Absolute Neuts (auto) 5.1 Absolute Nucleated RBC 0.000 Nucleated RBC % (auto) 0.0 PT INR Anion Gap Estim Creat Clear Calc Estimated GFR Random Glucose Lactic Acid Calcium Magnesium Total Bilirubin AST ALT Alkaline Phosphatase Total Protein Albumin Urine Color Urine Appearance Urine pH Ur Specific [place] Urine Protein Urine Glucose (UA) Urine Ketones Urine Blood Urine Nitrite Ur Leukocyte Esterase Urine RBC Urine WBC Ur Squamous Epith Cells Urine Bacteria Urine Mucus COVID-19 (JAMAL) Negative COVID-19 Clin Com See Note Influenza Type A (DANDY) Negative Influenza Type B (DANDY) Negative Influenza A & B Note See Note 12/03/21 12/03/21 12/03/21 15:23 15:23 15:23 MCV MCH MCHC RDW Plt Count MPV Immature Gran % (Auto) Neut % (Auto) Lymph % (Auto) [place] % (Auto) Eos % (Auto) Baso % (Auto) Lymph # (Auto) [place] # (Auto) Eos # (Auto) Baso # (Auto) Abs Immat Gran (auto) Absolute Neuts (auto) Absolute Nucleated RBC Nucleated RBC % (auto) PT 13.7 H INR 1.2 H Anion Gap 14 Estim Creat Clear Calc 45.3 Estimated GFR 45 Random Glucose 113 D Lactic Acid 1.2 Calcium 9.3 Magnesium 2.0 Total Bilirubin 1.5 H AST 21 ALT 33 Alkaline Phosphatase 145 H D Total Protein 6.9 Albumin 4.7 Urine Color Urine Appearance Urine pH Ur Specific [place] Urine Protein Urine Glucose (UA) Urine Ketones Urine Blood Urine Nitrite Ur Leukocyte Esterase Urine RBC Urine WBC Ur Squamous Epith Cells Urine Bacteria Urine Mucus COVID-19 (JAMAL) COVID-19 Clin Com Influenza Type A (DANDY) Influenza Type B (DANDY) Influenza A & B Note 12/03/21 15:59 MCV MCH MCHC RDW Plt Count MPV Immature Gran % (Auto) Neut % (Auto) Lymph % (Auto) [place] % (Auto) Eos % (Auto) Baso % (Auto) Lymph # (Auto) [place] # (Auto) Eos # (Auto) Baso # (Auto) Abs Immat Gran (auto) Absolute Neuts (auto) Absolute Nucleated RBC Nucleated RBC % (auto) PT INR Anion Gap Estim Creat Clear Calc Estimated GFR Random Glucose Lactic Acid Calcium Magnesium Total Bilirubin AST ALT Alkaline Phosphatase Total Protein Albumin Urine Color YELLOW Urine Appearance CLOUDY Urine pH 6.0 Ur Specific [place] 1.020 Urine Protein TRACE Urine Glucose (UA) NEG Urine Ketones 5 Urine Blood 2+ H Urine Nitrite POS H Ur Leukocyte Esterase 3+ H Urine RBC 1-4 Urine WBC TNTC H Ur Squamous Epith Cells TRACE Urine Bacteria 3+ Urine Mucus 1+ COVID-19 (JAMAL) COVID-19 Clin Com Influenza Type A (DANDY) Influenza Type B (DANDY) Influenza A & B Note Imaging Radiologist's Impressions: Impressions Chest X-Ray 12/03/21 14:40 IMPRESSION: Unremarkable chest exam Abdomen/Pelvis CT 12/03/21 16:25 IMPRESSION: Thickened bladder wall, increased since the prior study. Consider correlation with urinalysis to evaluate for cystitis. Bladder diverticulum is again demonstrated. Redemonstration of retroperitoneal matted adenopathy/amorphous soft tissue, similar in appearance the prior study. Diverticulosis of the colon without evidence of diverticulitis. No evidence for bowel obstruction. Redemonstration of multiple hepatic cysts. Head CT 12/03/21 16:25 IMPRESSION: No acute intracranial process seen. Age-related cerebral volume loss. Lacunar infarction right basal ganglia and internal capsule. Assessment and Plan (1) UTI (urinary tract infection): Status: Acute (2) Acute renal failure: Status: Acute (3) HTN (hypertension): Status: Acute Plan 71-year-old female with a past medical history of Dementia, BPH, prostate cancer, follicular lymphoma with bone marrow involvement, CVA with left-sided residual weakness, hypertension, hyperlipidemia, lumbar spinal stenosis, re current UTIs?presents similar to past admission with increased confusion weakness over the few days prior to admit. Urine with active sediment suspicious for UTI; CT pelvis correlates with thickened bladder wall. 1. UTI -continue IV Levaquin -adjust to pending c/s -gentle IVFs 2.HALEY -likely secondary to mild volume depletion -IVFs - follow renal/divalents in am 3.HTN -continue metoprolol as per outpatient dosing -adjust as indiated 4. BPH - continue finasteride/terazosin at outpatient dosing DNR/DNI Lovenox Requires inpatient admission to treat UTI with IV antibiotics and acute renal failure with volume repletion Quality Stroke Does the patient have a stroke diagnosis?: No VTE Prior VTE?: No VTE Risk Level:: Medical - moderate - high VTE Device Contraindication: Treatment Not Indicated VTE Drug Contraindication: N/A - Med Ordered
--- NOTE | 2021-12-03 18:27 | PHA.MEDREC ---
Pharmacy Consult ? Medication Reconciliation Pharmacy has completed the medication reconciliation.
[2021-12-03] MEDS: LORazepam 2 MG/ML VIAL 0.5 MG IVPUSH (20:09)
[2021-12-03] MEDS: Dextrose 5 % and 0.45 % NaCl 1,000 ML 100 ML IVCONT (20:41)
[2021-12-03 20:42] VITALS: TEMP 36.8
[2021-12-03] MEDS: Enoxaparin Sodium 40 MG/0.4 ML SYRINGE SUBCUT (20:43)
[2021-12-03 21:10] LABS: Ethanol < 10 mg/dL
[2021-12-03 23:44] VITALS: TEMP 40.2
--- NOTE | 2021-12-03 23:45 | PC.NURSE ---
PT found to have vomited while sleeping in bed. PT unable to respond to questions appropriately at this time. PT skin was very warm to the touch. This RN obtained rectal temp and found it to be elevated at 104.4. Hospitalist notified and order [place] tylenol and zofran. Ice packs were placed in the PT's groin, underarms, and behind the neck. PT cleaned up in bed and sheets changed.
[2021-12-04] VITALS (12 sets, daily range): BP systolic 105–172; BP diastolic 62–101; PULSE 76–122; RESP 16–24; TEMP 36.6–39.7; O2SAT 92–99
--- NOTE | 2021-12-04 | ECG_ITS ---
Test Reason : tarchycardia Blood Pressure : / mmHG Vent. Rate : 094 BPM Atrial Rate : 094 BPM P-R Int : 168 ms QRS Dur : 072 ms QT Int : 392 ms P-R-T Axes : 058 -12 030 degrees QTc Int : 490 ms Artifact in tracing Normal sinus rhythm Nonspecific ST abnormality Prolonged QT Abnormal ECG When compared with ECG of 03-DEC-2021 20:05, no Referred By: Calderon Urena Electronically Signed By:DOUG MARIEE
[2021-12-04] MEDS: Acetaminophen Supp 650 MG SUPP.RECT PR (00:38)
[2021-12-04 00:41] LABS: Lactic Acid 1.4 mmol/L (0.5-2.0)
--- NOTE | 2021-12-04 00:49 | PC.NURSE ---
This RN came to recheck PT temp. First observation noted after rolling the PT to recheck temp was a small puddle of white liquid under the PT near the anus. Hospitalist made aware. Ice packs replaced around the body.
--- NOTE | 2021-12-04 01:02 | PC.NURSE ---
This RN discussed plan to readminister MT Tylenol with hospitalist. Hospitalist instructed to give MT Tylenol. Reevaluate in one hour to determine a need for IV tylenol.
[2021-12-04] MEDS: Piperacillin Sodium/Tazobactam 3.375 GM in 0.9 % Sodium Chloride 50 ML IV ×4 (02:33→19:43)
[2021-12-04] MEDS: Lactated Ringers 1,000 ML 999 ML IV (02:41)
[2021-12-04 06:30] LABS: MANUAL DIFF FLAG NO
[2021-12-04 06:50] LABS: Alanine Aminotransferase 25 U/L (0-40); Alkaline Phosphatase 113 U/L (39-117); Anion Gap 14 (12-20); Aspartate Amino Transferase 16 U/L (5-37); Bilirubin Total 1.1 mg/dL (0.0-1.0); Blood Urea Nitrogen 12 mg/dL (9-16); Calcium 8.5 mg/dL (8.4-10.2); Carbon Dioxide 19 mmol/L (22-29); Chloride 107 mmol/L (96-108); Creatinine Clr Calc Pharmacy 47.2; Estimated Glomerular Filt Rate 47; Glucose Fasting 152 mg/dL (60-99); Potassium 4.2 mmol/L (3.3-5.1); Sodium 136 mmol/L (135-145); Total Protein 5.9 g/dL (6.5-8.0)
[2021-12-04 06:55] LABS: Basophils Percent Auto 0.1 % (0-2); Hematocrit 43.8 % (42.0-52.0); Hemoglobin 14.3 g/dl (14.0-18.0); Imm Gran Abs Auto 0.04 X10*3/uL (0.00-0.03); Imm Gran Pct Auto 0.6 % (0.0-0.4); Lymphocytes Absolute Auto 0.3 X10*3/uL (1.2-4.9); Lymphocytes Percent Auto 4.1 % (20-40); Mean Corpuscular HGB Conc 32.6 g/dl (31.0-36.0); Mean Corpuscular Hemoglobin 28.6 pg (27.0-33.0); Mean Corpuscular Volume 87.6 fL (80.0-98.0); Mean Platelet Volume 10.6 fL (9.4-12.4); Monocytes Absolute Auto 0.4 X10*3/uL (0.1-1.2); Monocytes Percent Auto 5.5 % (2-11); Neutrophils Absolute Auto 6.3 x10*3/uL (2.0-8.3); Neutrophils Percent Auto 89.7 % (45-73); Red Cell Distribution Width 14.1 % (11.0-16.0); White Blood Count 7.1 X10*3/uL (4.8-10.8)
[2021-12-04 06:57] LABS: Platelet Count 95 X10*3/uL (160-400)
[2021-12-04] MEDS: Acetaminophen 325 MG TABLET 650 MG PO ×2 (11:27→17:40)
--- NOTE | 2021-12-04 12:38 | P.PNIM_ITS ---
Subjective Subjective Date of Service: 12/04/21 Interval History: More alert today. Still mild confusion Review of Systems Denies chest pain Denies shortness of breath Denies nausea vomiting diarrhea Admits to fever and chills overnight Physical Exam Vital Signs: Vital Signs: Last Vital Signs Temp 101.1 F H 12/04/21 11:20 Pulse 108 H 12/04/21 11:20 Resp 18 12/04/21 11:20 BP 149/62 H 12/04/21 11:20 Pulse Ox 99 12/04/21 11:20 BMI result Body Mass Index 25.8 Const: Other: Awake alert confused HENMT: Other: Membranes moist Resp: Other: Clear to auscultation bilaterally; no rales rhonchi wheezes Cardio: Other: No S4; positive S1-S2; no S3 murmurs rubs or gallops GI: Other: Soft nontender nondistended with normoactive bowel sounds Extrem: Other: No edema bilaterally Objective Data Active Medications Acetaminophen (Acetaminophen 325 Mg Tablet) 650 mg PO Q6H PRN PRN Reason: Pain, Mild (Pain Scale 1-3) Last Admin: 12/04/21 11:27 Dose: 650 mg Documented by: VAUGHN Acetaminophen (Acetaminophen Supp 650 Mg Supp.Rect) 650 mg [place] Q6H PRN PRN Reason: fever Last Admin: 12/04/21 00:38 Dose: 650 mg Documented by: TWAN Enoxaparin Sodium (Enoxaparin Sodium 40 Mg/0.4 Ml Syringe) 40 mg SUBCUT Q24H [facility] Last Admin: 12/03/21 20:43 Dose: 40 mg Documented by: TWAN Dextrose/Sodium Chloride (D51/2ns) 1,000 mls @ 100 mls/hr IVCONT .Q10H [facility] Last Admin: 12/04/21 07:24 Dose: 100 mls/hr Documented by: RODGER Piperacillin Sod/Tazobactam (Sod 3.375 gm/ Sodium Chloride) 50 mls @ 100 mls/hr IV Q6H [facility] Last Infusion: 12/04/21 11:06 Dose: 0 mls/hr Documented by: VAUGHN Ondansetron HCl (Ondansetron Hcl 4 Mg/2 Ml Vial) 4 mg IVPUSH Q8H PRN PRN Reason: Nausea and Vomiting Pharmacy Consult (Consult Rx Perform Med Rec) 1 each MISCELLANE ONCE PRN PRN Reason: Consult order Sodium Chloride (0.9 % Sodium Chloride Flush 3 Ml Syringe) 3 ml IVFLUSH QSHIFT [facility] Last Admin: 12/04/21 10:41 Dose: Not Given Documented by: VAUGHN Non-Admin Reason: IV Running Labs CBC & Chem 7: 12/04/21 06:15 12/04/21 06:15 Labs: Laboratory Results - last 24 hr 12/03/21 12/03/21 12/03/21 15:23 15:23 15:23 MCV 85.3 MCH 28.7 MCHC 33.7 RDW 13.9 Plt Count 102 L D MPV 9.9 Immature Gran % (Auto) 0.5 H Neut % (Auto) 90.8 H Lymph % (Auto) 3.0 L [place] % (Auto) 5.3 Eos % (Auto) 0.2 Baso % (Auto) 0.2 Lymph # (Auto) 0.2 L [place] # (Auto) 0.3 Eos # (Auto) 0.0 Baso # (Auto) 0.0 Abs Immat Gran (auto) 0.03 Absolute Neuts (auto) 5.1 Absolute Nucleated RBC 0.000 Nucleated RBC % (auto) 0.0 PT INR Anion Gap Estim Creat Clear Calc Estimated GFR Random Glucose Fasting Glucose Lactic Acid Calcium Magnesium Total Bilirubin AST ALT Alkaline Phosphatase Total Protein Albumin Urine Color Urine Appearance Urine pH Ur Specific Thayer Urine Protein Urine Glucose (UA) Urine Ketones Urine Blood Urine Nitrite Ur Leukocyte Esterase Urine RBC Urine WBC Ur Squamous Epith Cells Urine Bacteria Urine Mucus Ethyl Alcohol COVID-19 (JAMAL) Negative COVID-19 Clin Com See Note Influenza Type A (DANDY) Negative Influenza Type B (DANDY) Negative Influenza A & B Note See Note 12/03/21 12/03/21 12/03/21 15:23 15:23 15:23 MCV MCH MCHC RDW Plt Count MPV Immature Gran % (Auto) Neut % (Auto) Lymph % (Auto) [place] % (Auto) Eos % (Auto) Baso % (Auto) Lymph # (Auto) [place] # (Auto) Eos # (Auto) Baso # (Auto) Abs Immat Gran (auto) Absolute Neuts (auto) Absolute Nucleated RBC Nucleated RBC % (auto) PT 13.7 H INR 1.2 H Anion Gap 14 Estim Creat Clear Calc 45.3 Estimated GFR 45 Random Glucose 113 D Fasting Glucose Lactic Acid 1.2 Calcium 9.3 Magnesium 2.0 Total Bilirubin 1.5 H AST 21 ALT 33 Alkaline Phosphatase 145 H D Total Protein 6.9 Albumin 4.7 Urine Color Urine Appearance Urine pH Ur Specific Thayer Urine Protein Urine Glucose (UA) Urine Ketones Urine Blood Urine Nitrite Ur Leukocyte Esterase Urine RBC Urine WBC Ur Squamous Epith Cells Urine Bacteria Urine Mucus Ethyl Alcohol COVID-19 (JAMAL) COVID-19 Clin Com Influenza Type A (DANDY) Influenza Type B (DANDY) Influenza A & B Note 12/03/21 12/03/21 12/04/21 15:59 20:49 00:20 MCV MCH MCHC RDW Plt Count MPV Immature Gran % (Auto) Neut % (Auto) Lymph % (Auto) [place] % (Auto) Eos % (Auto) Baso % (Auto) Lymph # (Auto) [place] # (Auto) Eos # (Auto) Baso # (Auto) Abs Immat Gran (auto) Absolute Neuts (auto) Absolute Nucleated RBC Nucleated RBC % (auto) PT INR Anion Gap Estim Creat Clear Calc Estimated GFR Random Glucose Fasting Glucose Lactic Acid 1.4 Calcium Magnesium Total Bilirubin AST ALT Alkaline Phosphatase Total Protein Albumin Urine Color YELLOW Urine Appearance CLOUDY Urine pH 6.0 Ur Specific [place] 1.020 Urine Protein TRACE Urine Glucose (UA) NEG Urine Ketones 5 Urine Blood 2+ H Urine Nitrite POS H Ur Leukocyte Esterase 3+ H Urine RBC 1-4 Urine WBC TNTC H Ur Squamous Epith Cells TRACE Urine Bacteria 3+ Urine Mucus 1+ Ethyl Alcohol < 10 COVID-19 (JAMAL) COVID-19 Clin Com Influenza Type A (DANDY) Influenza Type B (DANDY) Influenza A & B Note 12/04/21 12/04/21 06:15 06:15 MCV 87.6 MCH 28.6 MCHC 32.6 RDW 14.1 Plt Count 95 L MPV 10.6 Immature Gran % (Auto) 0.6 H Neut % (Auto) 89.7 H Lymph % (Auto) 4.1 L [place] % (Auto) 5.5 Eos % (Auto) 0.0 Baso % (Auto) 0.1 Lymph # (Auto) 0.3 L [place] # (Auto) 0.4 Eos # (Auto) 0.0 Baso # (Auto) 0.0 Abs Immat Gran (auto) 0.04 H Absolute Neuts (auto) 6.3 Absolute Nucleated RBC 0.000 Nucleated RBC % (auto) 0.0 PT INR Anion Gap 14 Estim Creat Clear Calc 47.2 Estimated GFR 47 Random Glucose Fasting Glucose 152 H D Lactic Acid Calcium 8.5 D Magnesium Total Bilirubin 1.1 H AST 16 ALT 25 Alkaline Phosphatase 113 D Total Protein 5.9 L Albumin 4.0 Urine Color Urine Appearance Urine pH Ur Specific [place] Urine Protein Urine Glucose (UA) Urine Ketones Urine Blood Urine Nitrite Ur Leukocyte Esterase Urine RBC Urine WBC Ur Squamous Epith Cells Urine Bacteria Urine Mucus Ethyl Alcohol COVID-19 (JAMAL) COVID-19 Clin Com Influenza Type A (DANDY) Influenza Type B (DANDY) Influenza A & B Note Microbiology Microbiology Results: Microbiology 12/03/21 16:07 Urine Culture - Preliminary Urine Catheterized - Straight Catheter Gram negative ant Assessment and Plan (1) UTI (urinary tract infection): Status: Acute (2) ATN (acute tubular necrosis): Status: Acute (3) HTN (hypertension): Status: Acute (4) BPH (benign prostatic hyperplasia): Status: Acute Plan 71-year-old male with a past medical history of Dementia, BPH, prostate cancer, follicular lymphoma with bone marrow involvement, CVA with left-sided residual weakness, hypertension, hyperlipidemia, lumbar spinal stenosis, recurrent UTIs?presents similar to past admission with increased confusion weakness over the few days prior to admit. Urine with active sediment suspicious for UTI; CT pelvis correlates with thickened bladder wall. Preliminary urine culture Gram- negative rods 1. UTI(GNR) -episode of fever to 104 overnight -swithced to Zosyn...follow temps. If spikes again, will switch to Meropenem -adjust to pending c/s -gentle IVFs 2.HALEY -likely secondary to ATN; plateaued -IVFs - follow renal/divalents in am 3.HTN -continue metoprolol as per outpatient dosing -adjust as indiated 4. BPH - continue finasteride/terazosin at outpatient dosing DNR/DNI Lovenox Requires inpatient therapies for at least 2 additional midnights secondary UTI(GNR) and fever spikes.(IV antibiotics) and IVFs for ATN Quality Stroke Does the patient have a stroke diagnosis?: No VTE Prior VTE?: No VTE Risk Level:: Medical - moderate - high VTE Device Contraindication: Treatment Not Indicated VTE Drug Contraindication: N/A - Med Ordered
--- NOTE | 2021-12-04 16:16 | MHC.CM.PN ---
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 COVID VACCINATED X2 PT'S SON FLOYD ALSO REPORTED PT GETS CONFUSED WHEN HE GETS UTI'S AND TYPICALLY CLEARS W/TX.
[2021-12-04] MEDS: Dextrose 5 % and 0.45 % NaCl 1,000 ML 100 ML IVCONT ×2 (17:25→17:28)
[2021-12-04] MEDS: Doxazosin Mesylate 2 MG TABLET 8 MG PO (19:42)
[2021-12-04] MEDS: Enoxaparin Sodium 40 MG/0.4 ML SYRINGE SUBCUT (19:43)
--- NOTE | 2021-12-04 23:28 | W.PM.IDCN ---
History of Present Illness Data of Consult Service Date: 12/04/21 Requesting physician: Calderon Urena Primary Care Provider: Esthela Carrillo MD HPI Reason for consult: possible sepsis He presents with weakness and nausea and vomiting. He has started Bactrim with nausea and vomiting after and diarrhea. He has no fever or chills. Review of Systems Review of Systems: Yes Unobtainable due to mental condition PMFSH Past Medical History Medical History Abnormal computed tomography angiography (CTA) Annual physical exam BPH (benign prostatic hyperplasia) CVA (cerebral vascular accident) Dementia Follicular lymphoma Hearing loss HTN (hypertension) Hyperglycemia Hyperlipidemia Lumbar spinal stenosis Recurrent UTI Family History Family History Father Colon cancer HTN (hypertension) Brother Non-Hodgkin lymphoma HTN (hypertension) Sister HTN (hypertension) Mother HTN (hypertension) TIA (transient ischemic attack) Family history: reviewed and not pertinent Surgical History Surgical History H/O colonoscopy Social History Social History Household Members: Children Household Members Other:: He mentioned 2 dogs and a person, but not answering now. Housing: House Housing Other:: Unsure if this is correct. Do you presently have visiting nurse or other home services: No Alcohol intake: former Patient Tobacco Use Status: Former Tobacco user Quit Date: over 30 years ago e-Cigarette/Vaping Use: Never Used Advance Directives Date on File: 08/17/14 service: No Current occupational status: retired [employer] Allergies Allergy/AdvReac Type Severity Reaction Status Date / Time No Known Allergies Allergy Verified 12/01/21 14:41 [No Known Allergies*] Active Medications: Current Medications Acetaminophen (Acetaminophen 325 Mg Tablet) 650 mg PO Q6H PRN PRN Reason: FEVER AND PAIN Last Admin: 12/04/21 17:40 Dose: 650 mg Documented by: Atorvastatin Calcium (Atorvastatin Calcium 40 Mg Tablet) 40 mg PO DAILY [facility]ONDRE Doxazosin Mesylate (Doxazosin Mesylate 2 Mg Tablet) 8 mg PO BEDTIME [facility] Last Admin: 12/04/21 19:42 Dose: 8 mg Documented by: Enoxaparin Sodium (Enoxaparin Sodium 40 Mg/0.4 Ml Syringe) 40 mg SUBCUT Q24H [facility] Last Admin: 12/04/21 19:43 Dose: 40 mg Documented by: Finasteride (Finasteride 5 Mg Tablet) 5 mg PO DAILY [facility] Dextrose/Sodium Chloride (D51/2ns) 1,000 mls @ 100 mls/hr IVCONT .Q10H [facility] Last Admin: 12/04/21 17:28 Dose: 100 mls/hr Documented by: Piperacillin Sod/Tazobactam (Sod 3.375 gm/ Sodium Chloride) 50 mls @ 100 mls/hr IV Q6H [facility] Last Infusion: 12/04/21 20:49 Dose: Infused Documented by: Ondansetron HCl (Ondansetron Hcl 4 Mg/2 Ml Vial) 4 mg IVPUSH Q8H PRN PRN Reason: Nausea and Vomiting Pharmacy Consult (Consult Rx Perform Med Rec) 1 each MISCELLANE ONCE PRN PRN Reason: Consult order Sodium Chloride (0.9 % Sodium Chloride Flush 3 Ml Syringe) 3 ml IVFLUSH QSHIFT [facility] Last Admin: 12/04/21 16:44 Dose: Not Given Documented by: Physical Exam Vital Signs: Vital Signs: Last Vital Signs Temp 101.7 F H 12/04/21 17:35 Pulse 76 12/04/21 16:06 Resp 20 12/04/21 16:06 BP 139/97 H 12/04/21 16:06 Pulse Ox 98 12/04/21 16:06 BMI result Body Mass Index 25.8 Const: General: cooperative HENMT: Head: Yes normal to inspection Mouth: Normal oral and palatal mucosa present Resp: Effort & Inspection: normal respiratory effort Cardio: Rate: regular rate Rhythm: regular rhythm GI: Palpation (GI): Soft to palpation Percussion: Yes Other (right flank discomfort) Results Labs CBC & Chem 7: 12/04/21 06:15 12/04/21 06:15 Labs: Short CBC 12/04/21 Range/Units 06:15 WBC 7.1 (4.8-10.8) X10*3/uL Hgb 14.3 (14.0-18.0) g/dl Hct 43.8 (42.0-52.0) % Plt Count 95 L (160-400) X10*3/uL BMP 12/04/21 06:15 Sodium 136 Potassium 4.2 Chloride 107 Carbon Dioxide 19 L BUN 12 Creatinine 1.46 H Calcium 8.5 D Liver Function 12/04/21 Range/Units 06:15 Total Bilirubin 1.1 H (0.0-1.0) mg/dL AST 16 (5-37) U/L ALT 25 (0-40) U/L Alkaline Phosphatase 113 D (39-117) U/L Albumin 4.0 (3.5-5.0) g/dL Microbiology Microbiology Results: Microbiology 12/03/21 15:45 Blood - Venous Blood Culture - Preliminary No growth after 24 hours. 12/03/21 15:23 Blood - Venous Blood Culture - Preliminary No growth after 24 hours. 12/03/21 16:07 Urine Catheterized - Straight Catheter Urine Culture - Preliminary Gram negative ant Assessment and Plan (1) Acute renal failure: Status: Acute (2) Nausea & vomiting: Status: Acute (3) Recurrent UTI: Status: Acute There is concern over UTI,possible resistant organisms He has had recurrent UTI. Plan Would continue antibiotics, Merem since there is some concern over resistant organisms Check cultures and treat as indicated.
--- NOTE | 2021-12-05 | ECG_ITS ---
Test Reason : tachycardia Blood Pressure : / mmHG Vent. Rate : 121 BPM Atrial Rate : 121 BPM P-R Int : 168 ms QRS Dur : 074 ms QT Int : 318 ms P-R-T Axes : 027 -16 -12 degrees QTc Int : 451 ms Sinus tachycardia with Premature atrial complexes Minimal voltage criteria for LVH, may be normal variant ( R in aVL ) Nonspecific ST and T wave abnormality Abnormal ECG When compared with ECG of 04-DEC-2021 07:52, Premature atrial complexes are now Present Nonspecific T wave abnormality now evident in Anterior leads Referred By: Calderon Urena Electronically Signed By:DOUG MARIEE
[2021-12-05] MEDS: Piperacillin Sodium/Tazobactam 3.375 GM in 0.9 % Sodium Chloride 50 ML IV (02:33)
[2021-12-05] MEDS: Dextrose 5 % and 0.45 % NaCl 1,000 ML 100 ML IVCONT ×2 (02:34→15:32)
[2021-12-05 05:48] LABS: MANUAL DIFF FLAG NO
[2021-12-05 05:53] LABS: Basophils Percent Auto 0.2 % (0-2); Imm Gran Abs Auto 0.03 X10*3/uL (0.00-0.03); Imm Gran Pct Auto 0.5 % (0.0-0.4); Monocytes Percent Auto 3.8 % (2-11); PLT CLUMP 1; SCAN SMEAR FLAG 1
[2021-12-05 05:54] LABS: Hemoglobin 13.6 g/dl (14.0-18.0); Lymphocytes Absolute Auto 0.5 X10*3/uL (1.2-4.9); Lymphocytes Percent Auto 8.6 % (20-40); Mean Corpuscular HGB Conc 33.2 g/dl (31.0-36.0); Mean Corpuscular Hemoglobin 28.5 pg (27.0-33.0); Mean Corpuscular Volume 85.8 fL (80.0-98.0); Mean Platelet Volume 10.4 fL (9.4-12.4); Monocytes Absolute Auto 0.2 X10*3/uL (0.1-1.2); Neutrophils Absolute Auto 5.1 x10*3/uL (2.0-8.3); Neutrophils Percent Auto 86.9 % (45-73); Red Blood Count 4.78 X10*6/uL (4.60-5.80); Red Cell Distribution Width 14.3 % (11.0-16.0)
[2021-12-05 05:56] LABS: Platelet Count 82 X10*3/uL (160-400); White Blood Count 5.8 X10*3/uL (4.8-10.8)
[2021-12-05 06:10] LABS: Alanine Aminotransferase 28 U/L (0-40); Albumin Level 3.8 g/dL (3.5-5.0); Alkaline Phosphatase 97 U/L (39-117); Anion Gap 13 (12-20); Aspartate Amino Transferase 22 U/L (5-37); Bilirubin Total 1.3 mg/dL (0.0-1.0); Blood Urea Nitrogen 11 mg/dL (9-16); Calcium 8.4 mg/dL (8.4-10.2); Carbon Dioxide 23 mmol/L (22-29); Chloride 103 mmol/L (96-108); Creatinine Clr Calc Pharmacy 40.7; Estimated Glomerular Filt Rate 40; Glucose Fasting 144 mg/dL (60-99); Potassium 3.9 mmol/L (3.3-5.1); Sodium 135 mmol/L (135-145); Total Protein 5.7 g/dL (6.5-8.0)
[2021-12-05 07:08] VITALS: BP 135/96; PULSE 100; RESP 15; TEMP 37.6; O2SAT 94
[2021-12-05] MEDS: Finasteride 5 MG TABLET PO (09:01)
[2021-12-05] MEDS: Atorvastatin Calcium 40 MG TABLET PO (09:01)
[2021-12-05] MEDS: 0.9 % Sodium Chloride Flush 3 ML SYRINGE IVFLUSH ×2 (09:02→20:04)
[2021-12-05 10:35] VITALS: TEMP 37.7
--- NOTE | 2021-12-05 11:05 | HO.PM.IMPN ---
Subjective Subjective Date of Service: 12/05/21 Interval History: More alert today. Still mild confusion Review of Systems Denies chest pain Denies shortness of breath Denies nausea vomiting diarrhea Admits to fever and chills overnight Physical Exam Vital Signs: Vital Signs: Last Vital Signs Temp 99.9 F 12/05/21 10:35 Pulse 100 12/05/21 07:08 Resp 15 12/05/21 07:08 BP 135/96 H 12/05/21 07:08 Pulse Ox 94 12/05/21 07:08 BMI result Body Mass Index 25.8 Const: Other: Awake alert confused HENMT: Other: Membranes moist Resp: Other: Clear to auscultation bilaterally; no rales rhonchi wheezes Cardio: Other: No S4; positive S1-S2; no S3 murmurs rubs or gallops GI: Other: Soft nontender nondistended with normoactive bowel sounds Extrem: Other: No edema bilaterally Objective Data Active Medications Acetaminophen (Acetaminophen 325 Mg Tablet) 650 mg PO Q6H PRN PRN Reason: FEVER AND PAIN Last Admin: 12/04/21 17:40 Dose: 650 mg Documented by: VAUGHN Atorvastatin Calcium (Atorvastatin Calcium 40 Mg Tablet) 40 mg PO DAILY [facility] Last Admin: 12/05/21 09:01 Dose: 40 mg Documented by: VAUGHN Doxazosin Mesylate (Doxazosin Mesylate 2 Mg Tablet) 8 mg PO BEDTIME [facility] Last Admin: 12/04/21 19:42 Dose: 8 mg Documented by: ZECHARIAH Enoxaparin Sodium (Enoxaparin Sodium 40 Mg/0.4 Ml Syringe) 40 mg SUBCUT Q24H [facility] Last Admin: 12/04/21 19:43 Dose: 40 mg Documented by: ZECHARIAH Finasteride (Finasteride 5 Mg Tablet) 5 mg PO DAILY [facility] Last Admin: 12/05/21 09:01 Dose: 5 mg Documented by: VAUGHN Dextrose/Sodium Chloride (D51/2ns) 1,000 mls @ 100 mls/hr IVCONT .Q10H [facility] Last Admin: 12/05/21 02:34 Dose: 100 mls/hr Documented by: ZECHARIAH Meropenem 1 gm/ Sodium (Chloride) 100 mls @ 200 mls/hr IV Q12H [facility] Last Admin: 12/05/21 09:06 Dose: 200 mls/hr Documented by: VAUGHN Ondansetron HCl (Ondansetron Hcl 4 Mg/2 Ml Vial) 4 mg IVPUSH Q8H PRN PRN Reason: Nausea and Vomiting Pharmacy Consult (Consult Rx Perform Med Rec) 1 each MISCELLANE ONCE PRN PRN Reason: Consult order Sodium Chloride (0.9 % Sodium Chloride Flush 3 Ml Syringe) 3 ml IVFLUSH QSHIFT [facility] Last Admin: 12/05/21 09:02 Dose: 3 ml Documented by: VAUGHN Labs CBC & Chem 7: 12/05/21 05:30 12/05/21 05:30 Labs: Laboratory Results - last 24 hr 12/05/21 12/05/21 05:30 05:30 MCV 85.8 MCH 28.5 MCHC 33.2 RDW 14.3 Plt Count 82 L MPV 10.4 Immature Gran % (Auto) 0.5 H Neut % (Auto) 86.9 H Lymph % (Auto) 8.6 L [place] % (Auto) 3.8 Eos % (Auto) 0.0 Baso % (Auto) 0.2 Lymph # (Auto) 0.5 L [place] # (Auto) 0.2 Eos # (Auto) 0.0 Baso # (Auto) 0.0 Abs Immat Gran (auto) 0.03 Absolute Neuts (auto) 5.1 Absolute Nucleated RBC 0.000 Nucleated RBC % (auto) 0.0 Anion Gap 13 Estim Creat Clear Calc 40.7 Estimated GFR 40 Fasting Glucose 144 H Calcium 8.4 Total Bilirubin 1.3 H AST 22 ALT 28 Alkaline Phosphatase 97 Total Protein 5.7 L Albumin 3.8 Microbiology Microbiology Results: Microbiology 12/03/21 16:07 Urine Culture - Final Urine Catheterized - Straight Catheter Escherichia coli 12/04/21 00:25 Blood Culture - Preliminary Blood - Venous No growth after 24 hours. 12/04/21 00:20 Blood Culture - Preliminary Blood - Venous No growth after 24 hours. 12/03/21 15:45 Blood Culture - Preliminary Blood - Venous No growth after 24 hours. 12/03/21 15:23 Blood Culture - Preliminary Blood - Venous No growth after 24 hours. Assessment and Plan (1) UTI (urinary tract infection): Status: Acute (2) ATN (acute tubular necrosis): Status: Acute (3) HTN (hypertension): Status: Acute Plan 71-year-old male with a past medical history of Dementia, BPH, prostate cancer, follicular lymphoma with bone marrow involvement, CVA with left-sided residual weakness, hypertension, hyperlipidemia, lumbar spinal stenosis, recurrent UTIs?presents similar to past admission with increased confusion weakness over the few days prior to admit. Urine with active sediment suspicious for UTI; CT pelvis correlates with thickened bladder wall. Preliminary urine culture Gram-negative rods 1. UTI(GNR) -TMax 101.7...slowly -swithced to Merepenem...follow temps. -EColi sens to CTX. Will discuss with ID -gentle IVFs 2.HALEY -likely secondary to ATN; plateaued -IVFs - follow renal/divalents in am 3.HTN -continue metoprolol as per outpatient dosing -adjust as indiated 4. BPH - continue finasteride/terazosin at outpatient dosing DNR/DNI Lovenox Requires inpatient therapies for at least 2 additional midnights going foward secondary UTI(GNR) and fever spikes.(IV antibiotics) Swithch to po when afebrile x 24hrs Quality Stroke Does the patient have a stroke diagnosis?: No VTE Prior VTE?: No VTE Risk Level:: Medical - moderate - high VTE Device Contraindication: Treatment Not Indicated VTE Drug Contraindication: N/A - Med Ordered
[2021-12-05] MEDS: Acetaminophen 325 MG TABLET 650 MG PO (12:23)
--- NOTE | 2021-12-05 12:27 | MHC.CLN ---
RE: CONSULT FOR POOR PO RECOMMEND ADDING ENSURE BID TO INCREASE KCALS
--- NOTE | 2021-12-05 14:24 | PC.NURSE ---
Addendum entered by Awilda Hernandez RN 12/05/21 14:43: Hard copy in patients chart. Original Note: EKG ordered by Md Keaton wiley,image sent via [employer] connect to mentioned Md for review .
[2021-12-05 15:16] VITALS: BP 121/80; PULSE 96; RESP 16; TEMP 36.6; O2SAT 93
--- NOTE | 2021-12-05 15:55 | MHC.CM.PN ---
NURSE ASSISTANT PROFESSOR OF EDUCATION NOTE ELECTRONIC MEDICAL RECORD REVIEWED ALONG WITH CASE DISCUSSED ON MULTIPLE DISCIPLINARY ROUNDS , SEEN BY ID PHYSICIAN TODAY FOR DOCUMENTED (CELLULITE OF THE LEG BACTEREMIA VENOSUS STASIS , SHE RECOMMENDED CONTINUE WITH IV VANCOMYCIN RECOMMENDED TO REFERRAL TO OUTPT WOUND CLINIC AND ECHO HOSPITALIST ALSO ORDERING FOR PHYSICAL THERAPY EVALUATION (THIS WAS ATTEMPTED BUT PATIENT FELT NAUSE AND ASKED FOR THEM TO COME BACK TOMORROW) ASSISTANT PROFESSOR OF EDUCATION TO [place] UE T0 FOLLOW DISCHARGE PLAN DEPENDENT ON PT. RECOMMENDATION SON INITIALLY WOULD LIKE VNA FOR NRUSING AND HOME PT ) DINAKIMJessica LIVING WITH HIS SON/HCP WHOM IS NOW HIS ADULT DUDE WRANGLER AND PROVIDES ALL THE CARE AT HOME FOR HIM ACTIVE WITH [facility] (RN. ASSISTANT PROFESSOR OF EDUCATION WHO VISITS MONTHLY
--- NOTE | 2021-12-05 17:31 | PC.NURSE ---
Patient has a implantable port to right chest.Used it 2 years ago for chemo,goes to oncology every 5 weeks to have it flushed,it is over due 2 weeks and patients daughter have asked if we could arrange it here. order obtained for flush,ok per nursing metal fabricating supervisor Corrine to have oncology perform the flush. Done by Cheikh customer support specialist, documented in MAR by this RN.
[2021-12-05] MEDS: Doxazosin Mesylate 2 MG TABLET 8 MG PO (20:03)
[2021-12-05] MEDS: Enoxaparin Sodium 40 MG/0.4 ML SYRINGE SUBCUT (20:03)
[2021-12-05 20:11] VITALS: BP 164/99; PULSE 100; RESP 18; TEMP 38.2; O2SAT 92
[2021-12-05 23:16] VITALS: BP 134/84; PULSE 104; RESP 14; TEMP 36.8; O2SAT 94
[2021-12-06] MEDS: Dextrose 5 % and 0.45 % NaCl 1,000 ML 100 ML IVCONT (05:02)
[2021-12-06 06:03] LABS: MANUAL DIFF FLAG NO
[2021-12-06 06:07] LABS: Basophils Percent Auto 0.2 % (0-2); Eosinophils Percent Auto 0.4 % (0-4); Hemoglobin 13.4 g/dl (14.0-18.0); Imm Gran Abs Auto 0.03 X10*3/uL (0.00-0.03); Imm Gran Pct Auto 0.6 % (0.0-0.4); Mean Corpuscular Hemoglobin 28.4 pg (27.0-33.0); PLT CLUMP 1; Red Blood Count 4.72 X10*6/uL (4.60-5.80); Red Cell Distribution Width 14.2 % (11.0-16.0); SCAN SMEAR FLAG 1
[2021-12-06 06:09] LABS: Hematocrit 40.1 % (42.0-52.0); Lymphocytes Absolute Auto 0.6 X10*3/uL (1.2-4.9); Lymphocytes Percent Auto 10.7 % (20-40); Mean Corpuscular HGB Conc 33.4 g/dl (31.0-36.0); Mean Platelet Volume 10.5 fL (9.4-12.4); Monocytes Absolute Auto 0.3 X10*3/uL (0.1-1.2); Monocytes Percent Auto 5.1 % (2-11); Neutrophils Absolute Auto 4.4 x10*3/uL (2.0-8.3)
[2021-12-06 06:10] LABS: Platelet Count 76 X10*3/uL (160-400); White Blood Count 5.3 X10*3/uL (4.8-10.8)
[2021-12-06 06:32] LABS: Alanine Aminotransferase 30 U/L (0-40); Albumin Level 3.5 g/dL (3.5-5.0); Alkaline Phosphatase 95 U/L (39-117); Anion Gap 13 (12-20); Aspartate Amino Transferase 26 U/L (5-37); Bilirubin Total 1.6 mg/dL (0.0-1.0); Blood Urea Nitrogen 12 mg/dL (9-16); Calcium 8.3 mg/dL (8.4-10.2); Carbon Dioxide 22 mmol/L (22-29); Chloride 104 mmol/L (96-108); Creatinine Clr Calc Pharmacy 56.5; Estimated Glomerular Filt Rate 58; Glucose Fasting 116 mg/dL (60-99); Potassium 3.4 mmol/L (3.3-5.1); Sodium 136 mmol/L (135-145); Total Protein 5.4 g/dL (6.5-8.0)
[2021-12-06 07:25] VITALS: BP 131/87; PULSE 100; RESP 16; TEMP 37.6; O2SAT 94
[2021-12-06] MEDS: Atorvastatin Calcium 40 MG TABLET PO (08:33)
[2021-12-06] MEDS: 0.9 % Sodium Chloride Flush 3 ML SYRINGE IVFLUSH (08:33)
[2021-12-06] MEDS: Finasteride 5 MG TABLET PO (08:33)
--- NOTE | 2021-12-06 12:02 | MHC.CM.PN ---
PER HOSPITALIST PT READY FOR D/C TO STR, HOSPITALIST REPORTS SON ON BOARD FOR STR, CM CONTACTED SON/HCP FLOYD AT 11:50AM AND HE REPORTS HE HAS NO PREFERENCES OTHER THAN [facility] WHICH PT DOESN'T QUALIFY FOR, OTHERWISE FLOYD WOULD LIKE PT TO STAY CLOSE TO HOME AND IS OK W/REFERRLAS PLACED TO [facility]. REFERRLAS PLACED OVER [facility] AND CM AWAITING RESPONSE.
--- NOTE | 2021-12-06 12:58 | P.DS_ITS ---
DS: Providers Provider Date of Service: 12/06/21 Date of admission: 12/03/21 18:02 Date of discharge: 12/06/21 Primary care physician: Esthela Carrillo MD Consults: 12/04/21 12:33 Consult to Infectious Diseases Routine Consulting Provider: Olya Mart Reason for consultation: GNR UTI Has provider been notified: Yes DS: Diagnosis Discharge Diagnosis (1) UTI (urinary tract infection): Status: Acute (2) ATN (acute tubular necrosis): Status: Acute (3) HTN (hypertension): Status: Acute DS: Summary Hospital Course Hospital Course: 71-year-old female with a past medical history of Dementia, BPH, prostate cancer, follicular lymphoma with bone marrow involvement, CVA with left-sided r esidual weakness, hypertension, hyperlipidemia, lumbar spinal stenosis, recurrent UTIs who is not on any blood thinners presenting to the ED via EMS after son and nurse were concerned that on Saturday night the patient has had increased weakness increased confusion complaining of worsening back pain worse today with associated nausea and vomiting.Pt has ?history of dementia and is a very poor historian.? Son reports that when this has happened in the past he has had UTIs.? Apparently he was seen by Dr. Saldana and prescribed Bactrim on 11/28/2021 for UTI and the patient took a few medications and he gave him some diarrhea therefore he discontinued this medication he did not complete the course of the antibiotics for the UTI.? Son reports that on Saturday he went out with some friends and when he came back the patient/his father was in the bathtub and he cannot get up by himself and then the son was able to get him up and into the bed.? Although his weakness progressively worsened and then this morning he was unable to get up and the son was unable to get him up therefore he told him that he was going to send him to the emergency department.? Hospital Course Urine with active sediment; CT abdomen pelvis consistent with thickened bladder wall increased size from previous study consideration for acute cystitis.? Otherwise CT head brain abdomen pelvis unremarkable. Patient admitted to [facility] medical floor and started on meropenem. Urine culture ultimately grew out E coli sensitive to ceftriaxone and after consult with ID patient will be discharged completed 10 day course of Ceftin. He will need follow-up urine at receiving facility. Plans have been verified with his proxy Time Spent with Patient Time attestation: Total time spent providing and/or coordinating discharge services: Discharge coordination time: Greater than 30 minutes Quality: Stroke Does the patient have a stroke diagnosis?: No Physical Exam Vital Signs: Vital Signs: Last Vital Signs Temp 99.7 F 12/06/21 07:25 Pulse 100 12/06/21 07:25 Resp 16 12/06/21 07:25 BP 131/87 12/06/21 07:25 Pulse Ox 94 12/06/21 07:25 BMI result Body Mass Index 25.8 Const: Other: Awake alert confused HENMT: Other: Membranes moist Resp: Other: Clear to auscultation bilaterally; no rales rhonchi wheezes Cardio: Other: No S4; positive S1-S2; no S3 murmurs rubs or gallops GI: Other: Soft nontender nondistended with normoactive bowel sounds Extrem: Other: No edema bilaterally DS: Data Data Completed and Pending Labs on day of discharge: Laboratory Results - last 24 hr 12/06/21 12/06/21 05:31 05:31 WBC 5.3 RBC 4.72 Hgb 13.4 L Hct 40.1 L MCV 85.0 MCH 28.4 MCHC 33.4 RDW 14.2 Plt Count 76 L MPV 10.5 Immature Gran % (Auto) 0.6 H Neut % (Auto) 83.0 H Lymph % (Auto) 10.7 L [place] % (Auto) 5.1 Eos % (Auto) 0.4 Baso % (Auto) 0.2 Lymph # (Auto) 0.6 L [place] # (Auto) 0.3 Eos # (Auto) 0.0 Baso # (Auto) 0.0 Abs Immat Gran (auto) 0.03 Absolute Neuts (auto) 4.4 Absolute Nucleated RBC 0.000 Nucleated RBC % (auto) 0.0 Sodium 136 Potassium 3.4 Chloride 104 Carbon Dioxide 22 Anion Gap 13 BUN 12 Creatinine 1.22 Estim Creat Clear Calc 56.5 Estimated GFR 58 Fasting Glucose 116 H Calcium 8.3 L Total Bilirubin 1.6 H AST 26 ALT 30 Alkaline Phosphatase 95 Total Protein 5.4 L Albumin 3.5 Preliminary micro results at discharge 12/04/21 00:25 Blood Culture - Preliminary Blood - Venous No growth after 48 hours. 12/04/21 00:20 Blood Culture - Preliminary Blood - Venous No growth after 48 hours. 12/03/21 15:45 Blood Culture - Preliminary Blood - Venous No growth after 48 hours. 12/03/21 15:23 Blood Culture - Preliminary Blood - Venous No growth after 48 hours. Discharge Plan Discharge Patient Disposition: Xfer Inpatient Rehab Fac Discharge Diagnosis: ecoli UTI Referrals: sEthela Carrillo MD [Primary Care Provider] - 1 Week Discharge Medications: New cefuroxime axetil 500 mg tablet 500 mg PO BID 10 Days Qty: 20 0RF Continued finasteride 5 mg tablet 5 mg PO DAILY 90 Days Qty: 90 2RF atorvastatin 40 mg tablet 40 mg PO DAILY Qty: 90 3RF (DME) Depend Underwear For Men Sm-Md Misc See Rx Instructions .MEDSUPPLY Qty: 64 11RF Rx Instructions: As directed-size sm/med (DME) Washable bed pad Medium See Rx Instructions .Route .MEDSUPPLY Qty: 10 0RF Rx Instructions: As directed metoprolol tartrate 50 mg tablet 50 mg PO BID Qty: 180 3RF terazosin 10 mg capsule 10 mg PO BEDTIME 90 Days Qty: 90 1RF Discharge Orders: Discharge Order (Routine); Ordered 12/06/21 Ordered By: Calderon Urena Diet: advance to usual diet Activity on Discharge: As tolerated Stand Alone Forms: Patient Portal Discharge page Care Plan Goals: Complete course of Ceftin follow-up with repeat urine Health Concerns: Continue meds as before hospital. Adjustments made by receiving facility Plan of Treatment: As per receiving facility Assessment: See discharge summary for details
--- NOTE | 2021-12-06 13:28 | MHC.CM.PN ---
PT DISCHARGING TO [facility] FOR [facility], PT'S SON FLOYD AGREEABLE TO PLAN AND NOTIFIED AT 1:15PM [phone] OF D/C TIME OF 4PM [facility]IA [facility].
[2021-12-06 13:56] LABS: COVID-19 Test Negative (Negative)
== END 2021-12-06 16:14 | DRG 689 ==
LOC: HO.ED 16:18 → HO.EDOVER 18:12 → HO.S3 12-04 07:42
PROVIDERS: Internal Medicine; Physician Assistant Medical; Admitting Provider Hospitalist; Emergency Provider Emergency Medicine; PCP Internal Medicine; Visit Provider Hospitalist
DX: N39.0 Urinary tract infection, site not specified (principal); N17.0 Acute kidney failure with tubular necrosis; I69.854 Hemiplegia and hemiparesis following other cerebrovascular disease affecting left non-dominant side; N40.0 Benign prostatic hyperplasia without lower urinary tract symptoms; B96.20 Unspecified Escherichia coli [E. coli] as the cause of diseases classified elsewhere; F03.90 Unspecified dementia, unspecified severity, without behavioral disturbance, psychotic disturbance, mood disturbance, and anxiety; E86.0 Dehydration; Z87.440 Personal history of urinary (tract) infections; Z87.891 Personal history of nicotine dependence; Z79.899 Other long term (current) drug therapy; Z66 Do not resuscitate
CPT/HCPCS: 36415; 70450; 71046; 74177; 80053; 81001; 82077; 83605; 83735; 84484; 85025; 85610; 87040; 87086; 87088; 87186; 87502; 87635; 93005; 96361; 96365; 96375; 97110; 97163; 99285; 99291; J1642; J1650; J1956; J2060; J2185; J2405; J2543; Q9967

== ENCOUNTER 2021-12-22 14:34 | Outpatient (REF) | payer MEDICARE, MEDICAID, SELFPAY ==
--- NOTE | ~2021-12-22 | MR_ITS ---
MR BRAIN WITHOUT AND WITH CONTRAST CLINICAL INFORMATION: Weakness of the trunk on the right side and confusion. COMPARISON: Head CT 12/20/2021 and brain MRI 12/10/2019. TECHNIQUE: Multiplanar, multisequence MRI of the brain was obtained before and after the intravenous administration of 8 mL of Gadavist. FINDINGS: There is no pathologic intracranial enhancement. 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 Etat crible appearance of the basal ganglia bilaterally as the sequela of chronic hypertension. There is no hydrocephalus, extra-axial surface collection, or herniation. The major flow voids at the skull base are preserved. There is no acute infarct on diffusion-weighted imaging. There are a few punctate foci of facilitated diffusion within the right occipital lobe and the right basal ganglia. There is no intracranial hemorrhage on the gradient recalled echo acquisition. Chronic hemosiderin staining within the right basal ganglia and punctate foci of chronic hemosiderin staining within the left cerebellum and right occipital lobe. The midline structures are normal. The cerebellar tonsils are normally positioned. The cerebellum and brainstem are normal. The craniocervical junction is normal. Osseous marrow signal intensity is homogenous. The visualized soft tissues are unremarkable. MR/MR head/brain wo/w con IMPRESSION: - No acute intracranial findings. No acute infarcts and no enhancing lesions. 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 Etat crible appearance of the basal ganglia bilaterally as the sequela of chronic hypertension.
== END 2021-12-22 14:35 | disposition home or self-care (01) ==
LOC: HO.MRI 14:34
PROVIDERS: Visit Provider Family Medicine
DX: F03.90 Unspecified dementia, unspecified severity, without behavioral disturbance, psychotic disturbance, mood disturbance, and anxiety (principal); Z86.73 Personal history of transient ischemic attack (TIA), and cerebral infarction without residual deficits
CPT/HCPCS: 70553; A9585

== ENCOUNTER 2022-01-25 14:10 | Outpatient (REF) | payer MEDICARE, MEDICAID, SELFPAY | END 2022-01-25 14:11 | disposition home or self-care (01) | LOC: HO.HAP 14:10 | PROVIDERS: Visit Provider Internal Medicine | DX: Z46.1 Encounter for fitting and adjustment of hearing aid (principal); H90.3 Sensorineural hearing loss, bilateral; H61.22 Impacted cerumen, left ear | CPT/HCPCS: V5011; V5020; V5160; V5261 ==

== ENCOUNTER 2022-02-08 16:32 | Outpatient (REF) | payer MEDICARE, MEDICAID, SELFPAY ==
[2022-02-08 16:40] LABS: Appearance Urine HAZY; Color Urine YELLOW; Glucose Urine UA NEG (NEG); Leukocyte Esterase Urine 3+ (NEG); Nitrite Urine POS (NEG); PH 5.5 (5.0-8.0); Specific Gravity - Urine 1.025 (1.005-1.025); Urine Blood TRACE (NEG); Urine Ketones NEG (NEG); Urine Protein NEG (NEG-TRACE)
[2022-02-08 16:46] LABS: Bacteria Urine 2+ /LPF; RBC Urine 0-2 /HPF (0)
== END 2022-02-08 16:33 | disposition home or self-care (01) ==
LOC: HO.HVNA 16:32
PROVIDERS: Visit Provider Internal Medicine
DX: N17.0 Acute kidney failure with tubular necrosis (principal); I69.359 Hemiplegia and hemiparesis following cerebral infarction affecting unspecified side; R82.71 Bacteriuria; B96.20 Unspecified Escherichia coli [E. coli] as the cause of diseases classified elsewhere
CPT/HCPCS: 81001; 87086; 87088; 87186

== ENCOUNTER 2022-03-20 08:57 | Day surgery (SDC) | payer MEDICARE, MEDICAID, SELFPAY ==
--- NOTE | ~2022-03-20 | IR_ITS ---
EXAMINATION: IR PORT-A-CATH REMOVAL CLINICAL INFORMATION: Port-A-Cath no longer needed. COMPARISON: None TECHNIQUE: Procedure and risks and benefits including bleeding and infection were discussed with the patient and informed consent was obtained. All elements of maximal sterile barrier technique followed including use of cap, mask, sterile gown, sterile gloves, a sterile full body drape and hand hygiene. Also followed skin preparation with 2% chlorhexidine for cutaneous antisepsis, and sterile ultrasound preparation with sterile gel and probe cover when applicable. The right chest over the port was prepped and draped in usual sterile fashion. The skin and soft tissues were anesthetized with 1% lidocaine plain. A small incision was made. Using blunt dissection, the catheter and port were dissected from the surrounding soft tissues and removed. The incision was closed using three 3-0 absorbable interrupted sutures followed by a running 4-0 absorbable subcuticular suture. The patient received Versed 1 mg and fentanyl 50 mcg. Conscious sedation was provided by a registered nurse under my direct supervision. Total sedation time: 80 minutes. FINDINGS: No fluoroscopic images were obtained. IR/IR cvc remove tunnel w prt/collator operator IMPRESSION: Right internal jugular Port-A-Cath removal.
[2022-03-20 09:57] VITALS: BMI 26.6
[2022-03-20 10:00] VITALS: BP 158/95; PULSE 59; RESP 18; TEMP 36.7; O2SAT 99
[2022-03-20 10:20] LABS: MANUAL DIFF FLAG NO
[2022-03-20 10:30] LABS: Basophils Percent Auto 0.6 % (0-2); Eosinophils Absolute Auto 0.1 X10*3/uL (0.0-0.4); Hematocrit 42.8 % (42.0-52.0); Hemoglobin 14.9 g/dl (14.0-18.0); Imm Gran Abs Auto 0.02 X10*3/uL (0.00-0.03); Imm Gran Pct Auto 0.3 % (0.0-0.4); Lymphocytes Absolute Auto 0.9 X10*3/uL (1.2-4.9); Lymphocytes Percent Auto 14.1 % (20-40); Mean Corpuscular HGB Conc 34.8 g/dl (31.0-36.0); Mean Corpuscular Hemoglobin 28.9 pg (27.0-33.0); Mean Corpuscular Volume 83.1 fL (80.0-98.0); Monocytes Absolute Auto 0.3 X10*3/uL (0.1-1.2); Monocytes Percent Auto 5.3 % (2-11); Neutrophils Absolute Auto 4.9 x10*3/uL (2.0-8.3); Neutrophils Percent Auto 78.7 % (45-73); Platelet Count 110 X10*3/uL (160-400); Red Blood Count 5.15 X10*6/uL (4.60-5.80); Red Cell Distribution Width 14.3 % (11.0-16.0); White Blood Count 6.2 X10*3/uL (4.8-10.8)
[2022-03-20 10:53] LABS: Partial Thromboplastin Time 34.6 SEC (24.1-38.0); Prothrombin Time 11.2 SEC (9.9-13.0)
--- NOTE | 2022-03-20 11:04 | PC.NURSE ---
report given to radiology and javon barron. pt stated fell out of his bed onto his buttocks and left elbow. no loss of consciousness. verified with daughter. pt denies pain. pt lives with son. daughter states this is what she was told. pt walking well. dr nguyen per bag turner
--- NOTE | 2022-03-20 11:38 | PC.NURSE ---
skin assessment completed after pt stated he fell at home onto his buttocks and left elbow. no redness, brusing or open areas noted. small approx. size 1/2 dime on left elbow abrasion
[2022-03-20] MEDS: Lidocaine HCl 1 % MPF 5 ML VIAL 10 ML INFILTRATI (12:04)
[2022-03-20 12:30] VITALS: BP 161/93; PULSE 58; RESP 16; TEMP 36.4; O2SAT 97
--- NOTE | 2022-03-20 12:42 | P.RADPN_ITS ---
RADIOLOGY Narrative Narrative: rij PORTACATH REMOVED.
--- NOTE | 2022-03-20 12:42 | HO.RADPN ---
RADIOLOGY Narrative Narrative: rij PORTACATH REMOVED.
[2022-03-20 12:45] VITALS: BP 171/96; PULSE 54; RESP 16; O2SAT 97
[2022-03-20 13:00] VITALS: BP 164/97; PULSE 54; RESP 16; O2SAT 97
[2022-03-20 13:15] VITALS: BP 162/96; PULSE 57; RESP 16; O2SAT 97
[2022-03-20 13:30] VITALS: BP 164/98; PULSE 58; RESP 16; O2SAT 97
== END 2022-03-20 14:00 | disposition home or self-care (01) ==
PROVIDERS: Radiology Diagnostic Radiology; PCP Internal Medicine; Visit Provider Radiology Diagnostic Radiology
PROC: (CPT 36590; principal; 2022-03-20 10:30)
DX: Z45.2 Encounter for adjustment and management of vascular access device (principal); C82.90 Follicular lymphoma, unspecified, unspecified site; Z87.891 Personal history of nicotine dependence
CPT/HCPCS: 36415; 36590; 85025; 85610; 85730; 99152; 99153; J2250; J3010

== ENCOUNTER 2022-06-06 05:20 | Outpatient (REF) | payer SELFPAY ==
[2022-06-06 05:28] LABS: MANUAL DIFF FLAG NO
[2022-06-06 05:41] LABS: Basophils Percent Auto 0.5 % (0-2); Eosinophils Absolute Auto 0.1 X10*3/uL (0.0-0.4); Eosinophils Percent Auto 1.1 % (0-4); Hematocrit 40.2 % (42.0-52.0); Hemoglobin 13.9 g/dl (14.0-18.0); Imm Gran Abs Auto 0.02 X10*3/uL (0.00-0.03); Imm Gran Pct Auto 0.4 % (0.0-0.4); Lymphocytes Absolute Auto 0.7 X10*3/uL (1.2-4.9); Lymphocytes Percent Auto 12.2 % (20-40); Mean Corpuscular HGB Conc 34.6 g/dl (31.0-36.0); Mean Corpuscular Hemoglobin 29.3 pg (27.0-33.0); Mean Corpuscular Volume 84.6 fL (80.0-98.0); Mean Platelet Volume 10.7 fL (9.4-12.4); Monocytes Absolute Auto 0.5 X10*3/uL (0.1-1.2); Monocytes Percent Auto 8.4 % (2-11); Neutrophils Absolute Auto 4.3 x10*3/uL (2.0-8.3); Neutrophils Percent Auto 77.4 % (45-73); Platelet Count 92 X10*3/uL (160-400); Red Blood Count 4.75 X10*6/uL (4.60-5.80); Red Cell Distribution Width 14.2 % (11.0-16.0); White Blood Count 5.6 X10*3/uL (4.8-10.8)
[2022-06-06 06:18] LABS: Alanine Aminotransferase 26 U/L (0-40); Albumin Level 3.8 g/dL (3.5-5.0); Alkaline Phosphatase 85 U/L (39-117); Anion Gap 13 (12-20); Aspartate Amino Transferase 21 U/L (5-37); Bilirubin Total 1.5 mg/dL (0.0-1.0); Blood Urea Nitrogen 16 mg/dL (9-16); Calcium 8.2 mg/dL (8.4-10.2); Carbon Dioxide 24 mmol/L (22-29); Chloride 108 mmol/L (96-108); Estimated Glomerular Filt Rate 56; Glucose Random 90 mg/dL (60-115); Potassium 3.8 mmol/L (3.3-5.1); Sodium 141 mmol/L (135-145); Total Protein 5.8 g/dL (6.5-8.0)
== END 2022-06-06 05:21 | disposition home or self-care (01) ==
LOC: HO.MMNH2L 05:20
PROVIDERS: Visit Provider Family Medicine
DX: Z02.2 Encounter for examination for admission to residential institution (principal); I10 Essential (primary) hypertension
CPT/HCPCS: 36415; 80053; 85025

== ENCOUNTER 2022-07-06 12:43 | Inpatient (IN) | payer MEDICARE, MEDICAID, SELFPAY ==
[2022-07-06] VITALS (7 sets, daily range): BP systolic 115–170; BP diastolic 80–98; PULSE 100–155; RESP 18–24; TEMP 36.7–39.2; O2SAT 94–97; BMI 26.4; BMI 26.5
--- NOTE | ~2022-07-06 | CT_ITS ---
EXAMINATION: CT HEAD WITHOUT CONTRAST CLINICAL INFORMATION: Lethargy COMPARISON: 12/22/2021 TECHNIQUE: Contiguous axial imaging was performed from the skull base to vertex without intravenous administration of contrast. This CT examination was performed using dose optimization techniques as appropriate, variously including the following: *Automated exposure control *Adjustment of mA and/or kV according to patient size (this includes techniques or standardized protocols for targeted exams where dose is matched to indication/reason for exam; i.e. extremities or head) *Use of iterative reconstruction technique DLP: 779 mGy-cm FINDINGS: There is prominence to the sulci and ventricles. There is extensive deep white matter gliosis. Chronic lacunaes in the basal ganglia and flowers radiata noted. Bilateral basal ganglia calcifications noted. No change. There is no intra or extra-axial fluid collection, hemorrhage, mass or mass effect. Calvarium intact. CT/CT head/brain wo IV con IMPRESSION: Stable chronic change.
--- NOTE | ~2022-07-06 | XR_ITS ---
EXAMINATION: XR CHEST CLINICAL INFORMATION: Cough. COMPARISON: 12/03/2021 chest radiographs. TECHNIQUE: Frontal view of the chest was obtained. FINDINGS: Kyphotic positioning and low lung volumes limit evaluation. Interval removal of previously seen right central venous port. The lungs are clear. The heart and mediastinal structures are unremarkable. XR/XR chest 1V IMPRESSION: Limited study. No acute cardiopulmonary process.
--- NOTE | 2022-07-06 12:55 | ECG_ITS ---
Test Reason : AMS Blood Pressure : / mmHG Vent. Rate : 108 BPM Atrial Rate : 108 BPM P-R Int : 184 ms QRS Dur : 072 ms QT Int : 348 ms P-R-T Axes : 044 -10 -23 degrees QTc Int : 466 ms Sinus tachycardia Minimal voltage criteria for LVH, may be normal variant ( R in aVL ) Nonspecific ST and T wave abnormality Abnormal ECG When compared with ECG of 05-DEC-2021 14:10, Premature atrial complexes is no longer Present Referred By: Kiara Hernandez Electronically Signed By:TRINA KELLER MD
--- NOTE | 2022-07-06 13:07 | ED.WEAKNESS ---
HPI - Weakness General Chief complaint: Weakness Stated complaint: STROKE RAGHU PEREIRA 0200 Time Seen by Provider: 07/06/22 12:52 Source: patient and EMS Mode of arrival: EMS History of Present Illness HPI Narrative: 71-year-old male with prior stroke is brought in by EMS for family concerns over increased lethargy and decreased verbal communication. Patient's family concerned regarding possible infection. Patient is interacting with me and knows that [place] [facility] [place] unable to provide the year or president, but is a poor historian. Related Data Previous Rx's Medication Instructions Recorded atorvastatin 40 mg tablet 40 mg PO DAILY #90 tabs 07/26/21 Depend Underwear For Men Alexy #64 ea 12/01/21 (diaper,brief,adult,disposable) Washable bed pad #10 ea 12/01/21 metoprolol tartrate 50 mg tablet 50 mg PO BID #180 tabs 12/04/21 finasteride 5 mg tablet 5 mg PO DAILY 90 days #90 tabs 04/09/22 naproxen 500 mg tablet 500 mg PO BID #10 tabs 04/27/22 Allergies Allergy/AdvReac Type Severity Reaction Status Date / Time No Known Allergies Allergy Verified 06/20/22 11:43 [No Known Allergies*] Review of Systems Review of Systems: Pertinent positives and negatives as stated in HPI. [facility] Past Medical History Source: nursing notes reviewed Medical History Abnormal computed tomography angiography (CTA) Annual physical exam BPH (benign prostatic hyperplasia) CVA (cerebral vascular accident) Dementia Follicular lymphoma Hearing loss HTN (hypertension) Hyperglycemia Hyperlipidemia Lumbar spinal stenosis Recurrent UTI Surgical History H/O colonoscopy Family History Family History Father Colon cancer HTN (hypertension) Brother Non-Hodgkin lymphoma HTN (hypertension) Sister HTN (hypertension) Mother HTN (hypertension) TIA (transient ischemic attack) Social History Social History Household Members: Children Household Members Other:: He mentioned 2 dogs and a person, but not answering now. Housing: House Housing Other:: Unsure if this is correct. Are you a primary care consultant to a significant other at home: No Do you presently have visiting nurse or other home services: No Alcohol intake: former Patient Tobacco Use Status: Former Tobacco user Quit Date: over 30 years ago e-Cigarette/Vaping Use: Never Used Advance Directives: No Advance Directives Information Provided: No Advance Directives Date on File: 08/17/14 service: No Current occupational status: retired Cognitive needs: No Hearing needs: Yes Vision needs: No Physical Exam Vital Signs: Vital Signs: Last Vital Signs Temp 98.5 F 07/06/22 15:54 Pulse 104 H 07/06/22 15:54 Resp 18 07/06/22 15:54 BP 115/81 07/06/22 15:54 Pulse Ox 95 07/06/22 15:54 O2 Del Method 07/06/22 15:54 BMI result Body Mass Index 26.4 VITAL SIGNS: Reviewed. GENERAL: Chronically ill, fragile, elderly, in no acute distress. HEAD: Normocephalic/atraumatic EYES: PERRLA, EOMI EARS: Ext canals without abnormality OROPHARYNX: no oral lesions noted, posterior pharynx clear, dry mucosa, appears possible dried vomit around the lower edge of the mouth. NECK: Supple, no adenopathy LUNGS: Normal breath sounds. No adventitious sounds or accessory muscle use. SpO2<95> CARDIOVASCULAR: Regular rate and rhythm without noted murmurs, no JVD or lower extremity edema. ABDOMEN: Soft, non-tender, non-distended with bowel sounds. MUSCULOSKELETAL: No tenderness, deformities, or effusions noted on gross inspection. EXTREMITIES: No cyanosis, clubbing or edema. SKIN: Inspection of the skin reveals no rashes, ulcerations, jaundice, pallor, or petechiae. NEUROLOGIC: Drowsy but arousable and oriented x 2. Strength and sensation to light touch were grossly intact x 4 but noted deficit on left that is baseline from prior stroke. Course Course Course Narrative: 1305: 71-year-old male with history and clinical presentation of last known well at 02:00 and comes in with mild drowsiness but is communicating and does not appear to have any new focal deficits, suspect patient has underlying infection. We will still pursue CT of the head but at this time will pursue sepsis workup. Patient has noted sepsis with UTI, received antibiotics, also of note patient has evidence to suggest mild CHF without hypoxia. COVID-19 and influenza are negative. I discussed case with the inpatient hospitalist who accepts admission. MDM - Weakness Lab Data Result diagrams: 07/06/22 13:33 07/06/22 13:33 Labs: Lab Results 07/06/22 07/06/22 07/06/22 Range/Units 13:33 13:33 13:33 WBC 10.7 (4.8-10.8) X10*3/uL RBC 5.55 (4.60-5.80) X10*6/uL Hgb 16.0 (14.0-18.0) g/dl Hct 45.2 (42.0-52.0) % MCV 81.4 (80.0-98.0) fL MCH 28.8 (27.0-33.0) pg MCHC 35.4 (31.0-36.0) g/dl RDW 14.0 (11.0-16.0) % Plt Count 86 L (160-400) X10*3/uL MPV 10.0 (9.4-12.4) fL Immature Gran % (Auto) 0.3 (0.0-0.4) % Neut % (Auto) 95.1 H (45-73) % Lymph % (Auto) 1.6 L (20-40) % [place] % (Auto) 2.8 (2-11) % Eos % (Auto) 0.0 (0-4) % Baso % (Auto) 0.2 (0-2) % Lymph # (Auto) 0.2 L (1.2-4.9) X10*3/uL [place] # (Auto) 0.3 (0.1-1.2) X10*3/uL Eos # (Auto) 0.0 (0.0-0.4) X10*3/uL Baso # (Auto) 0.0 (0.0-0.2) X10*3/uL Abs Immat Gran (auto) 0.03 (0.00-0.03) X10*3/uL Absolute Neuts (auto) 10.2 H (2.0-8.3) x10*3/uL Absolute Nucleated RBC 0.000 (0.0-0.012) X10*3/uL Nucleated RBC % (auto) 0.0 (0.0-0.2) /100WBC Smear Tech's Comments VERIFIED PT 13.2 H (10.0-13.1) SEC INR 1.1 (0.9-1.1) Sodium 140 (135-145) mmol/L Potassium 2.9 L D (3.3-5.1) mmol/L Chloride 104 (96-108) mmol/L Carbon Dioxide 21 L (22-29) mmol/L Anion Gap 18 (12-20) BUN 12 (9-16) mg/dL Creatinine 1.06 (0.5-1.4) mg/dL Estim Creat Clear Calc 58.8 Estimated GFR > 60 Random Glucose 120 H D (60-115) mg/dL Lactic Acid (0.5-2.0) mmol/L Calcium 8.7 (8.4-10.2) mg/dL Magnesium 1.5 L (1.6-2.6) mg/dL Total Bilirubin 2.2 H (0.0-1.0) mg/dL AST 21 (5-37) U/L ALT 32 (0-40) U/L Alkaline Phosphatase 111 (39-117) U/L Troponin I High Sens (<3.5-35.0) ng/L B-Natriuretic Peptide (<100) pg/mL Total Protein 6.3 L (6.5-8.0) g/dL Albumin 4.3 (3.5-5.0) g/dL Urine Color Urine Appearance Urine pH (5.0-9.0) Ur Specific [place] (1.005-1.025) Urine Protein (Neg-Trace) mg/dL Urine Glucose (UA) (Negative) mg/dL Urine Ketones (Negative) mg/dL Urine Blood (Negative) Urine Nitrite (Negative) Ur Leukocyte Esterase (Negative) Urine RBC (0-2) /HPF Urine WBC (0-5) /HPF Ur Squamous Epith Cells (0-2) /HPF Urine Bacteria (None Seen) Hyaline Casts (0-2) /LPF COVID-19 (JAMAL) (Negative) COVID-19 Clin Com Influenza Type A (DANDY) (Negative) Influenza Type B (DANDY) (Negative) Influenza A & B Note 07/06/22 07/06/22 07/06/22 Range/Units 13:33 13:33 13:33 WBC (4.8-10.8) X10*3/uL RBC (4.60-5.80) X10*6/uL Hgb (14.0-18.0) g/dl Hct (42.0-52.0) % MCV (80.0-98.0) fL MCH (27.0-33.0) pg MCHC (31.0-36.0) g/dl RDW (11.0-16.0) % Plt Count (160-400) X10*3/uL MPV (9.4-12.4) fL Immature Gran % (Auto) (0.0-0.4) % Neut % (Auto) (45-73) % Lymph % (Auto) (20-40) % [place] % (Auto) (2-11) % Eos % (Auto) (0-4) % Baso % (Auto) (0-2) % Lymph # (Auto) (1.2-4.9) X10*3/uL [place] # (Auto) (0.1-1.2) X10*3/uL Eos # (Auto) (0.0-0.4) X10*3/uL Baso # (Auto) (0.0-0.2) X10*3/uL Abs Immat Gran (auto) (0.00-0.03) X10*3/uL Absolute Neuts (auto) (2.0-8.3) x10*3/uL Absolute Nucleated RBC (0.0-0.012) X10*3/uL Nucleated RBC % (auto) (0.0-0.2) /100WBC Smear Tech's Comments PT (10.0-13.1) SEC INR (0.9-1.1) Sodium (135-145) mmol/L Potassium (3.3-5.1) mmol/L Chloride (96-108) mmol/L Carbon Dioxide (22-29) mmol/L Anion Gap (12-20) BUN (9-16) mg/dL Creatinine (0.5-1.4) mg/dL Estim Creat Clear Calc Estimated GFR Random Glucose (60-115) mg/dL Lactic Acid 1.2 (0.5-2.0) mmol/L Calcium (8.4-10.2) mg/dL Magnesium (1.6-2.6) mg/dL Total Bilirubin (0.0-1.0) mg/dL AST (5-37) U/L ALT (0-40) U/L Alkaline Phosphatase (39-117) U/L Troponin I High Sens 4.0 (<3.5-35.0) ng/L B-Natriuretic Peptide 123 H (<100) pg/mL Total Protein (6.5-8.0) g/dL Albumin (3.5-5.0) g/dL Urine Color Urine Appearance Urine pH (5.0-9.0) Ur Specific [place] (1.005-1.025) Urine Protein (Neg-Trace) mg/dL Urine Glucose (UA) (Negative) mg/dL Urine Ketones (Negative) mg/dL Urine Blood (Negative) Urine Nitrite (Negative) Ur Leukocyte Esterase (Negative) Urine RBC (0-2) /HPF Urine WBC (0-5) /HPF Ur Squamous Epith Cells (0-2) /HPF Urine Bacteria (None Seen) Hyaline Casts (0-2) /LPF COVID-19 (JAMAL) (Negative) COVID-19 Clin Com Influenza Type A (DANDY) Negative (Negative) Influenza Type B (DANDY) Negative (Negative) Influenza A & B Note See Note 07/06/22 07/06/22 Range/Units 13:33 15:13 WBC (4.8-10.8) X10*3/uL RBC (4.60-5.80) X10*6/uL Hgb (14.0-18.0) g/dl Hct (42.0-52.0) % MCV (80.0-98.0) fL MCH (27.0-33.0) pg MCHC (31.0-36.0) g/dl RDW (11.0-16.0) % Plt Count (160-400) X10*3/uL MPV (9.4-12.4) fL Immature Gran % (Auto) (0.0-0.4) % Neut % (Auto) (45-73) % Lymph % (Auto) (20-40) % [place] % (Auto) (2-11) % Eos % (Auto) (0-4) % Baso % (Auto) (0-2) % Lymph # (Auto) (1.2-4.9) X10*3/uL [place] # (Auto) (0.1-1.2) X10*3/uL Eos # (Auto) (0.0-0.4) X10*3/uL Baso # (Auto) (0.0-0.2) X10*3/uL Abs Immat Gran (auto) (0.00-0.03) X10*3/uL Absolute Neuts (auto) (2.0-8.3) x10*3/uL Absolute Nucleated RBC (0.0-0.012) X10*3/uL Nucleated RBC % (auto) (0.0-0.2) /100WBC Smear Tech's Comments PT (10.0-13.1) SEC INR (0.9-1.1) Sodium (135-145) mmol/L Potassium (3.3-5.1) mmol/L Chloride (96-108) mmol/L Carbon Dioxide (22-29) mmol/L Anion Gap (12-20) BUN (9-16) mg/dL Creatinine (0.5-1.4) mg/dL Estim Creat Clear Calc Estimated GFR Random Glucose (60-115) mg/dL Lactic Acid (0.5-2.0) mmol/L Calcium (8.4-10.2) mg/dL Magnesium (1.6-2.6) mg/dL Total Bilirubin (0.0-1.0) mg/dL AST (5-37) U/L ALT (0-40) U/L Alkaline Phosphatase (39-117) U/L Troponin I High Sens (<3.5-35.0) ng/L B-Natriuretic Peptide (<100) pg/mL Total Protein (6.5-8.0) g/dL Albumin (3.5-5.0) g/dL Urine Color Yellow Urine Appearance Clear Urine pH 5.5 (5.0-9.0) Ur Specific [place] 1.015 (1.005-1.025) Urine Protein Negative (Neg-Trace) mg/dL Urine Glucose (UA) Negative (Negative) mg/dL Urine Ketones 40 (Negative) mg/dL Urine Blood Trace H (Negative) Urine Nitrite Positive H (Negative) Ur Leukocyte Esterase Large (3+) H (Negative) Urine RBC 3-5 H (0-2) /HPF Urine WBC 11-20 (0-5) /HPF Ur Squamous Epith Cells 0-2 (0-2) /HPF Urine Bacteria 4+ (None Seen) Hyaline Casts 0-2 (0-2) /LPF COVID-19 (JAMAL) Negative (Negative) COVID-19 Clin Com See Note Influenza Type A (DANDY) (Negative) Influenza Type B (DANDY) (Negative) Influenza A & B Note ECG Data Attestation: I personally reviewed and interpreted this ECG as follows: Prior ECG tracings: available for review Interpretation: Sinus tachycardia, HR-108, no STEMI, IN/QRS/QTC is within normal limits. Critical Care Time Critical Care Time Critical Care Time: Yes Total Critical Care Time: 30 Attestation: I personally attest to this time spent taking care of the patient. Discharge Plan Discharge Clinical Impression: Lethargy, Sepsis, Acute UTI, Hypomagnesemia, Hypokalemia Patient Disposition: Admitted As Inpatient
[2022-07-06 13:42] LABS: Basophils Percent Auto 0.2 % (0-2); Hematocrit 45.2 % (42.0-52.0); Imm Gran Abs Auto 0.03 X10*3/uL (0.00-0.03); Imm Gran Pct Auto 0.3 % (0.0-0.4); Lymphocytes Absolute Auto 0.2 X10*3/uL (1.2-4.9); Lymphocytes Percent Auto 1.6 % (20-40); MANUAL DIFF FLAG SCAN; Mean Corpuscular HGB Conc 35.4 g/dl (31.0-36.0); Mean Corpuscular Hemoglobin 28.8 pg (27.0-33.0); Mean Corpuscular Volume 81.4 fL (80.0-98.0); Monocytes Absolute Auto 0.3 X10*3/uL (0.1-1.2); Monocytes Percent Auto 2.8 % (2-11); Neutrophils Absolute Auto 10.2 x10*3/uL (2.0-8.3); Neutrophils Percent Auto 95.1 % (45-73); Red Blood Count 5.55 X10*6/uL (4.60-5.80); SCAN SMEAR FLAG 1; White Blood Count 10.7 X10*3/uL (4.8-10.8)
[2022-07-06 13:45] LABS: INTERNATIONAL NORM RATIO 1.1 (0.9-1.1); Prothrombin Time 13.2 SEC (10.0-13.1)
[2022-07-06 13:50] LABS: Platelet Count 86 X10*3/uL (160-400)
[2022-07-06] MEDS: Acetaminophen Supp 650 MG SUPP.RECT PR (13:52)
[2022-07-06 13:56] LABS: COVID-19 Test Negative (Negative); IDNOW Serial# 16C4AD1C; Influenza A Negative (Negative); Influenza B2 Negative (Negative)
[2022-07-06 13:57] LABS: Lactic Acid 1.2 mmol/L (0.5-2.0)
[2022-07-06] MEDS: 0.9 % Sodium Chloride 500 ML 999 ML IV (13:57)
[2022-07-06] MEDS: Piperacillin Sodium/Tazobactam 3.375 GM in 0.9 % Sodium Chloride 50 ML IV (14:02)
[2022-07-06 14:03] LABS: Alanine Aminotransferase 32 U/L (0-40); Albumin Level 4.3 g/dL (3.5-5.0); Alkaline Phosphatase 111 U/L (39-117); Anion Gap 18 (12-20); Aspartate Amino Transferase 21 U/L (5-37); Bilirubin Total 2.2 mg/dL (0.0-1.0); Blood Urea Nitrogen 12 mg/dL (9-16); Calcium 8.7 mg/dL (8.4-10.2); Carbon Dioxide 21 mmol/L (22-29); Chloride 104 mmol/L (96-108); Creatinine Clr Calc Pharmacy 58.8; Estimated Glomerular Filt Rate > 60; Glucose Random 120 mg/dL (60-115); Potassium 2.9 mmol/L (3.3-5.1); Sodium 140 mmol/L (135-145); Total Protein 6.3 g/dL (6.5-8.0)
[2022-07-06 14:07] LABS: B Type Natriuretic Peptide 123 pg/mL (<100)
[2022-07-06 14:09] LABS: SLIDE REVIEW VERIFIED
[2022-07-06 14:26] LABS: Magnesium 1.5 mg/dL (1.6-2.6)
--- NOTE | 2022-07-06 14:43 | PC.NURSE ---
sleeping and easily woken, again denies si or taking took much meds, denies any drugs, sr on monitor, quickly back to sleep, was was sleepy but alert when talking, certainly more alert than a few hours ago
[2022-07-06 15:21] LABS: Appearance Urine Clear; Color Urine Yellow; Glucose Urine UA Negative (Negative); Leukocyte Esterase Urine Large (3+) (Negative); Nitrite Urine Positive (Negative); PH 5.5 (5.0-9.0); Specific Gravity - Urine 1.015 (1.005-1.025); UMIC TRIGGER UACC YES; Urine Blood Trace (Negative); Urine Ketones 40 mg/dL (Negative); Urine Protein Negative (Neg-Trace)
[2022-07-06] MEDS: Potassium Chloride/H20 10 MEQ/100 ML PIGGYBACK 100 MEQ IV ×2 (15:27→17:39)
[2022-07-06] MEDS: Magnesium Sulfate/D5W 1 GM/100 ML PIGGYBACK IV (15:27)
[2022-07-06 15:42] LABS: Bacteria Urine 4+ (None Seen); Hyaline Casts Urine 0-2 /LPF (0-2); Squamous Epithelial Cell Urine 0-2 /HPF (0-2); UACC Culture Trigger YES
--- NOTE | 2022-07-06 16:18 | PM.IMHP ---
History of Present Illness Date of Service: 07/06/22 Chief Complaint: weakness and confusion This is a 71 yo M with a PMH of BPH, for follicular lymphoma with bone marrow involvement, CVA with left leg weakness, hypertension, hyperlipidemia amongst others who presents to the hospital after being found by family to be due to increasing weakness, lethargic with concern for possible infection. He is found to have sepsis due to UTI. with temperature of 102, tachycardia, yet normal WBC. Additionally noed to have potassiumo f 2.9, magnesium of 1.5. UA is grossely positive, CT head chronic stable changes. ED management: Zosyn, potassium 10 meq, IVF. Review of Systems Review of Systems: Gen: + fever Resp: no sob, no cough CV: no chest, no WREN, no leg edema GI: No +n/v, no abd pain Neuro: + confusion Yes all other systems are reviewed and are negative [facility] Medical History Abnormal computed tomography angiography (CTA) Annual physical exam BPH (benign prostatic hyperplasia) CVA (cerebral vascular accident) Dementia Follicular lymphoma Hearing loss HTN (hypertension) Hyperglycemia Hyperlipidemia Lumbar spinal stenosis Recurrent UTI Family History Father Colon cancer HTN (hypertension) Brother Non-Hodgkin lymphoma HTN (hypertension) Sister HTN (hypertension) Mother HTN (hypertension) TIA (transient ischemic attack) Surgical History H/O colonoscopy Social History Household Members: Unknown / Unable to assess Household Members Other:: He mentioned 2 dogs and a person, but not answering now. Housing: Unknown / Unable to assess Housing Other:: Unsure if this is correct. Are you a primary healthcare insurance sales agent to a significant other at home: No Do you presently have visiting nurse or other home services: No Unable to assess alcohol history related to: Unable to respond Alcohol intake: former Patient Tobacco Use Status: Former Tobacco user Quit Date: over 30 years ago e-Cigarette/Vaping Use: Never Used Use of substances other than those prescribed or required for medical reasons: Unable to respond Currently Displaying Signs/Symptoms of Drug Intoxication Withdrawal: No Advance Directives: No Advance Directives Information Provided: No Advance Directives Date on File: 08/17/14 service: No Current occupational status: retired Cognitive needs: No Hearing needs: Yes Vision needs: No Meds Allergies Allergy/AdvReac Type Severity Reaction Status Date / Time No Known Allergies Allergy Verified 06/20/22 11:43 [No Known Allergies*] Active Medications: Current Medications Potassium Chloride (Potassium Chloride/H20) 10 meq in 100 mls @ 100 mls/hr IV Q1H DEONDRE Stop: 07/06/22 16:59 Last Admin: 07/06/22 15:27 Dose: 100 mls/hr Pharmacy Consult (Consult Rx Perform Med Rec) 1 each MISCELLANE ONCE PRN PRN Reason: Consult order Physical Exam Vital Signs and Narrative: Vital Signs: Last Vital Signs Temp 98.5 F 07/06/22 15:54 Pulse 104 H 07/06/22 15:54 Resp 18 07/06/22 15:54 BP 115/81 07/06/22 15:54 Pulse Ox 95 07/06/22 15:54 O2 Del Method 07/06/22 15:54 BMI result Body Mass Index 26.4 Const: Other: Constitutional: Alert, in no distress, Mental Status: Oriented to person, place not Eyes: Pupils are equal, round and reactive to light. Ear, Nose and Throat: Oropharynx clear, mucous membranes moist. Ears and nose without eformities. Trachea midline. Respiratory: Clear to auscultation. No wheezing, rales or rhonchi. Cardiovascular: S1 S2 regular. No murmurs, rubs or gallops. Gastrointestinal: Abdomen soft, non-tender, non-distended. Normal bowel sounds.? Neurologic: Cranial nerves II-XII grossly intact. No focal neurological deficits, other. Moves all extremities spontaneously.? Skin: No rashes or lesions.? Musculoskeletal: No cyanosis or clubbing. Psychiatric: Normal mood and affect? Results Labs CBC and Chem 7: 07/06/22 13:33 07/06/22 13:33 Labs: Laboratory Results - last 24 hr 07/06/22 07/06/22 07/06/22 13:33 13:33 13:33 MCV 81.4 MCH 28.8 MCHC 35.4 RDW 14.0 Plt Count 86 L MPV 10.0 Immature Gran % (Auto) 0.3 Neut % (Auto) 95.1 H Lymph % (Auto) 1.6 L [place] % (Auto) 2.8 Eos % (Auto) 0.0 Baso % (Auto) 0.2 Lymph # (Auto) 0.2 L [place] # (Auto) 0.3 Eos # (Auto) 0.0 Baso # (Auto) 0.0 Abs Immat Gran (auto) 0.03 Absolute Neuts (auto) 10.2 H Absolute Nucleated RBC 0.000 Nucleated RBC % (auto) 0.0 Smear Tech's Comments VERIFIED PT 13.2 H INR 1.1 Anion Gap 18 Estim Creat Clear Calc 58.8 Estimated GFR > 60 Random Glucose 120 H D Lactic Acid Calcium 8.7 Magnesium 1.5 L Total Bilirubin 2.2 H AST 21 ALT 32 Alkaline Phosphatase 111 Troponin I High Sens B-Natriuretic Peptide Total Protein 6.3 L Albumin 4.3 Urine Color Urine Appearance Urine pH Ur Specific [place] Urine Protein Urine Glucose (UA) Urine Ketones Urine Blood Urine Nitrite Ur Leukocyte Esterase Urine RBC Urine WBC Ur Squamous Epith Cells Urine Bacteria Hyaline Casts COVID-19 (JAMAL) COVID-19 Clin Com Influenza Type A (DANDY) Influenza Type B (DANDY) Influenza A & B Note 07/06/22 07/06/22 07/06/22 13:33 13:33 13:33 MCV MCH MCHC RDW Plt Count MPV Immature Gran % (Auto) Neut % (Auto) Lymph % (Auto) [place] % (Auto) Eos % (Auto) Baso % (Auto) Lymph # (Auto) [place] # (Auto) Eos # (Auto) Baso # (Auto) Abs Immat Gran (auto) Absolute Neuts (auto) Absolute Nucleated RBC Nucleated RBC % (auto) Smear Tech's Comments PT INR Anion Gap Estim Creat Clear Calc Estimated GFR Random Glucose Lactic Acid 1.2 Calcium Magnesium Total Bilirubin AST ALT Alkaline Phosphatase Troponin I High Sens 4.0 B-Natriuretic Peptide 123 H Total Protein Albumin Urine Color Urine Appearance Urine pH Ur Specific [place] Urine Protein Urine Glucose (UA) Urine Ketones Urine Blood Urine Nitrite Ur Leukocyte Esterase Urine RBC Urine WBC Ur Squamous Epith Cells Urine Bacteria Hyaline Casts COVID-19 (JAMAL) COVID-19 Clin Com Influenza Type A (DANDY) Negative Influenza Type B (DANDY) Negative Influenza A & B Note See Note 07/06/22 07/06/22 13:33 15:13 MCV MCH MCHC RDW Plt Count MPV Immature Gran % (Auto) Neut % (Auto) Lymph % (Auto) [place] % (Auto) Eos % (Auto) Baso % (Auto) Lymph # (Auto) [place] # (Auto) Eos # (Auto) Baso # (Auto) Abs Immat Gran (auto) Absolute Neuts (auto) Absolute Nucleated RBC Nucleated RBC % (auto) Smear Tech's Comments PT INR Anion Gap Estim Creat Clear Calc Estimated GFR Random Glucose Lactic Acid Calcium Magnesium Total Bilirubin AST ALT Alkaline Phosphatase Troponin I High Sens B-Natriuretic Peptide Total Protein Albumin Urine Color Yellow Urine Appearance Clear Urine pH 5.5 Ur Specific [place] 1.015 Urine Protein Negative Urine Glucose (UA) Negative Urine Ketones 40 Urine Blood Trace H Urine Nitrite Positive H Ur Leukocyte Esterase Large (3+) H Urine RBC 3-5 H Urine WBC 11-20 Ur Squamous Epith Cells 0-2 Urine Bacteria 4+ Hyaline Casts 0-2 COVID-19 (JAMAL) Negative COVID-19 Clin Com See Note Influenza Type A (DANDY) Influenza Type B (DANDY) Influenza A & B Note Imaging Radiologist's Impressions: Impressions Chest X-Ray 07/06/22 13:48 IMPRESSION: Limited study. No acute cardiopulmonary process. Head CT 07/06/22 14:40 IMPRESSION: Stable chronic change. Assessment and Plan (1) Sepsis: Status: Acute (2) Acute UTI: Status: Acute (3) Hypomagnesemia: Status: Acute (4) Hypokalemia: Status: Acute Plan This is a 71 yo M with a PMH of BPH, for follicular lymphoma with bone marrow involvement, CVA with left leg weakness, hypertension, hyperlipidemia amongst others who presents to the hospital after being found by family to be due to increasing weakness, lethargic and found to have sepsis d/t UTI, has low K and low mag 1/ Sepsis.. meets criteria with tachy and fever, No severe featuures 2/UTI as cause of above -Given Zosyn in ED, will add ceftriaxone and follow culture 3/Hypokalemia 4/Hypomagnesmia -replace and repeat tomorrow 5. Toxic/Metabolic Encephalopathy due to above 5/Weakness--likely due to combination of all above issues -Address underlying issues and reassess 6. HTN--resume BP meds tomorrow 5. BPH finasteride 6. HLD--Lipitor 7. 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
[2022-07-06] MEDS: Magnesium Sulfate/H2O 2 GM/50 ML PIGGYBACK IV (17:38)
[2022-07-06] MEDS: Potassium Chloride Packet 20 MEQ PACKET 40 MEQ PO (17:39)
--- NOTE | 2022-07-06 17:50 | PHA.MEDREC ---
Pharmacy Consult ? Medication Reconciliation Pharmacy has completed the medication reconciliation. Spoke with pt. He wasn't very responsive to my questions, he kept staring at his tv. List matches his fill history. he did say yes to everything except the naproxen in which he failed to respond at all
[2022-07-06] MEDS: cefTRIAXone sodium 1 GM in 0.9 % Sodium Chloride 100 ML IV (20:10)
[2022-07-06] MEDS: NaPROXEN 500 MG TABLET PO (20:10)
[2022-07-06] MEDS: Enoxaparin Sodium 40 MG/0.4 ML SYRINGE SUBCUT (20:10)
[2022-07-06] MEDS: Metoprolol Tartrate 50 MG TABLET PO (20:12)
[2022-07-07] VITALS: BP 124/56; PULSE 84; RESP 20; TEMP 36.6; O2SAT 97
[2022-07-07] MEDS: 0.9 % Sodium Chloride Flush 3 ML SYRINGE IVFLUSH ×4 (03:36→21:31)
[2022-07-07 03:51] VITALS: BP 136/79; PULSE 62; RESP 20; TEMP 36.8; O2SAT 96
[2022-07-07 07:58] VITALS: BP 146/83; PULSE 73; RESP 19; TEMP 37.2; O2SAT 95
--- NOTE | 2022-07-07 08:06 | HO.PM.IMPN ---
Subjective Subjective Date of Service: 07/07/22 Interval History: Seen in f/u for sepsis, UTI with encephalopathy, bacteremia Interval history: No fever, blood culture growing gram negative ant Review of Systems no fever or chils Physical Exam Vital Signs: Vital Signs: Last Vital Signs Temp 98.9 F 07/07/22 07:58 Pulse 73 07/07/22 07:58 Resp 19 07/07/22 07:58 BP 146/83 H 07/07/22 07:58 Pulse Ox 95 07/07/22 07:58 O2 Del Method 07/07/22 07:58 BMI result Body Mass Index 26.5 Const: Other: General: AO X 2, no acute distress Resp: CTA bilateral CVS: S1,S2,RRR GI: +BS, NT, no distention Skin: No rash Neuro: motor grossly intact Psych: appropriate affect Objective Data Active Medications Acetaminophen (Acetaminophen 325 Mg Tablet) 650 mg PO Q6H PRN PRN Reason: Pain, Mild (Pain Scale 1-3) Atorvastatin Calcium (Atorvastatin Calcium 40 Mg Tablet) 40 mg PO DAILY [facility] Enoxaparin Sodium (Enoxaparin Sodium 40 Mg/0.4 Ml Syringe) 40 mg SUBCUT Q24H [facility] Last Admin: 07/06/22 20:10 Dose: 40 mg Documented By: SAMANTHA Finasteride (Finasteride 5 Mg Tablet) 5 mg PO DAILY [facility] Ceftriaxone Sodium 1 gm/ (Sodium Chloride) 100 mls @ 200 mls/hr IV Q24H [facility] Last Infusion: 07/07/22 03:38 Dose: 0 mls/hr Documented By: SAMANTHA Magnesium Hydroxide (Milk Of Magnesia 30 Ml Oral.Susp) 30 ml PO DAILY PRN PRN Reason: Constipation Melatonin (Melatonin 3 Mg Tablet) 3 mg PO BEDTIME PRN PRN Reason: Insomnia Metoprolol Tartrate (Metoprolol Tartrate 50 Mg Tablet) 50 mg PO BID [facility]; Protocol Last Admin: 07/06/22 20:12 Dose: 50 mg Documented By: SAMANTHA Naproxen (Naproxen 500 Mg Tablet) 500 mg PO BID [facility] Last Admin: 07/06/22 20:10 Dose: 500 mg Documented By: SAMANTHA Ondansetron HCl (Ondansetron Hcl 4 Mg/2 Ml Vial) 4 mg IVPUSH Q8H PRN PRN Reason: Nausea and Vomiting Pharmacy Consult (Consult Rx Perform Med Rec) 1 each MISCELLANE ONCE PRN PRN Reason: Consult order Sodium Chloride (0.9 % Sodium Chloride Flush 3 Ml Syringe) 3 ml IVFLUSH QSHIFT [facility] Last Admin: 07/07/22 03:36 Dose: 3 ml Documented By: SAMANTHA Labs CBC & Chem 7: 07/07/22 09:08 07/07/22 09:08 Labs: Laboratory Results - last 24 hr 07/06/22 07/06/22 07/06/22 13:33 13:33 13:33 MCV 81.4 MCH 28.8 MCHC 35.4 RDW 14.0 Plt Count 86 L MPV 10.0 Immature Gran % (Auto) 0.3 Neut % (Auto) 95.1 H Lymph % (Auto) 1.6 L [place] % (Auto) 2.8 Eos % (Auto) 0.0 Baso % (Auto) 0.2 Lymph # (Auto) 0.2 L [place] # (Auto) 0.3 Eos # (Auto) 0.0 Baso # (Auto) 0.0 Abs Immat Gran (auto) 0.03 Absolute Neuts (auto) 10.2 H Absolute Nucleated RBC 0.000 Nucleated RBC % (auto) 0.0 Smear Tech's Comments VERIFIED PT 13.2 H INR 1.1 Anion Gap 18 Estim Creat Clear Calc 58.8 Estimated GFR > 60 Random Glucose 120 H D Lactic Acid Calcium 8.7 Magnesium 1.5 L Total Bilirubin 2.2 H AST 21 ALT 32 Alkaline Phosphatase 111 Troponin I High Sens B-Natriuretic Peptide Total Protein 6.3 L Albumin 4.3 Urine Color Urine Appearance Urine pH Ur Specific [place] Urine Protein Urine Glucose (UA) Urine Ketones Urine Blood Urine Nitrite Ur Leukocyte Esterase Urine RBC Urine WBC Ur Squamous Epith Cells Urine Bacteria Hyaline Casts COVID-19 (JAMAL) COVID-19 Clin Com Influenza Type A (DANDY) Influenza Type B (DANDY) Influenza A & B Note 07/06/22 07/06/22 07/06/22 13:33 13:33 13:33 MCV MCH MCHC RDW Plt Count MPV Immature Gran % (Auto) Neut % (Auto) Lymph % (Auto) [place] % (Auto) Eos % (Auto) Baso % (Auto) Lymph # (Auto) [place] # (Auto) Eos # (Auto) Baso # (Auto) Abs Immat Gran (auto) Absolute Neuts (auto) Absolute Nucleated RBC Nucleated RBC % (auto) Smear Tech's Comments PT INR Anion Gap Estim Creat Clear Calc Estimated GFR Random Glucose Lactic Acid 1.2 Calcium Magnesium Total Bilirubin AST ALT Alkaline Phosphatase Troponin I High Sens 4.0 B-Natriuretic Peptide 123 H Total Protein Albumin Urine Color Urine Appearance Urine pH Ur Specific [place] Urine Protein Urine Glucose (UA) Urine Ketones Urine Blood Urine Nitrite Ur Leukocyte Esterase Urine RBC Urine WBC Ur Squamous Epith Cells Urine Bacteria Hyaline Casts COVID-19 (JAMAL) COVID-19 Clin Com Influenza Type A (DANDY) Negative Influenza Type B (DANDY) Negative Influenza A & B Note See Note 07/06/22 07/06/22 13:33 15:13 MCV MCH MCHC RDW Plt Count MPV Immature Gran % (Auto) Neut % (Auto) Lymph % (Auto) [place] % (Auto) Eos % (Auto) Baso % (Auto) Lymph # (Auto) [place] # (Auto) Eos # (Auto) Baso # (Auto) Abs Immat Gran (auto) Absolute Neuts (auto) Absolute Nucleated RBC Nucleated RBC % (auto) Smear Tech's Comments PT INR Anion Gap Estim Creat Clear Calc Estimated GFR Random Glucose Lactic Acid Calcium Magnesium Total Bilirubin AST ALT Alkaline Phosphatase Troponin I High Sens B-Natriuretic Peptide Total Protein Albumin Urine Color Yellow Urine Appearance Clear Urine pH 5.5 Ur Specific [place] 1.015 Urine Protein Negative Urine Glucose (UA) Negative Urine Ketones 40 Urine Blood Trace H Urine Nitrite Positive H Ur Leukocyte Esterase Large (3+) H Urine RBC 3-5 H Urine WBC 11-20 Ur Squamous Epith Cells 0-2 Urine Bacteria 4+ Hyaline Casts 0-2 COVID-19 (JAMAL) Negative COVID-19 Clin Com See Note Influenza Type A (DANDY) Influenza Type B (DANDY) Influenza A & B Note Microbiology Microbiology Results: Microbiology 07/06/22 13:44 Blood Culture - Preliminary Blood - Venous Prelim: GNR Gram Stain only Assessment and Plan (1) Sepsis: Status: Acute (2) Acute UTI: Status: Acute Plan This is a 71 yo M with a PMH of BPH, for follicular lymphoma with bone marrow involvement, CVA with left leg weakness, hypertension, hyperlipidemia amongst others who presents to the hospital after being found by family to be due to increasing weakness, lethargic and found to have sepsis d/t UTI, has low K and low mag 1/ Sepsis.. met criteria with tachy and fever, No severe featuures--sepsis now resolved. 2/UTI as cause of above 3/ Dwayne negative ant bacteremia -Given Zosyn in EDx 1, - ceftriaxone D2 3/Hypokalemia--corrected, repeat 4/Hypomagnesmia--corrected, repeat 5. Toxic/Metabolic Encephalopathy due to above -he is more lucid today 5/Weakness--likely due to combination of all above issues -Address underlying issues and reassess, likely PT eval before dc 6. HTN--resume BP meds tomorrow 5. BPH? finasteride 6. HLD--Lipitor 7. 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 heparin or Levenox DNR/DNI -- per son who is HCP (patient unable to answer at this time) DVT pptx, Lovenox need for inaptient: sepsis needing IV Abx Quality Stroke Does the patient have a stroke diagnosis?: No VTE Prior VTE?: No VTE Risk Level:: Medical - moderate - high VTE Device Contraindication: Treatment Not Indicated VTE Drug Contraindication: N/A - Med Ordered
[2022-07-07 09:16] LABS: Hematocrit 42.9 % (42.0-52.0); Hemoglobin 15.2 g/dl (14.0-18.0); Mean Corpuscular HGB Conc 35.4 g/dl (31.0-36.0); Mean Corpuscular Hemoglobin 29.2 pg (27.0-33.0); Mean Corpuscular Volume 82.5 fL (80.0-98.0); Mean Platelet Volume 9.8 fL (9.4-12.4); Red Cell Distribution Width 14.6 % (11.0-16.0); White Blood Count 12.2 X10*3/uL (4.8-10.8)
[2022-07-07 09:18] LABS: Platelet Count 91 X10*3/uL (160-400)
[2022-07-07] MEDS: Atorvastatin Calcium 40 MG TABLET PO (09:22)
[2022-07-07] MEDS: Metoprolol Tartrate 50 MG TABLET PO ×2 (09:22→21:31)
[2022-07-07] MEDS: Finasteride 5 MG TABLET PO (09:22)
[2022-07-07] MEDS: NaPROXEN 500 MG TABLET PO ×2 (09:23→21:24)
[2022-07-07 09:36] LABS: Anion Gap 18 (12-20); Blood Urea Nitrogen 16 mg/dL (9-16); Calcium 8.6 mg/dL (8.4-10.2); Carbon Dioxide 20 mmol/L (22-29); Chloride 108 mmol/L (96-108); Creatinine Clr Calc Pharmacy 55.7; Estimated Glomerular Filt Rate > 60; Glucose Random 104 mg/dL (60-115); Potassium 4.3 mmol/L (3.3-5.1); Sodium 142 mmol/L (135-145)
[2022-07-07 11:35] VITALS: BP 125/77; PULSE 66; RESP 18; TEMP 36.7; O2SAT 96
--- NOTE | 2022-07-07 15:00 | MHC.CM.PN ---
IMM DELIVERED CM MET WITH PATIENT . LIVES WITH EDUARD BARRIENTOS IN A SINGLE FAMILY HOME. USES A CANE , WALKER AND W/C AT BASELINE, HAS MOW/[facility] AND VNA SERVICES WITH [facility] . WILL SEND A RETURN REFERRAL. SON HAS COPY OF HCP, SOURAV VAX X 2. PCP DR. SANCHEZ OF [facility] [place]. [facility] WILL TRANSPORT HOME AT [place]
[2022-07-07 16:00] VITALS: BP 144/82; PULSE 79; RESP 16; TEMP 36.5; O2SAT 95
[2022-07-07] MEDS: cefTRIAXone sodium 1 GM in 0.9 % Sodium Chloride 100 ML IV (17:20)
[2022-07-07] MEDS: Enoxaparin Sodium 40 MG/0.4 ML SYRINGE SUBCUT (17:21)
[2022-07-07 19:40] VITALS: BP 160/97; PULSE 83; RESP 17; TEMP 36.8; O2SAT 96
[2022-07-08] VITALS (7 sets, daily range): BP systolic 151–177; BP diastolic 80–108; PULSE 57–77; RESP 17–19; TEMP 36.3–36.8; O2SAT 95–98
[2022-07-08] MEDS: Atorvastatin Calcium 40 MG TABLET PO (08:35)
[2022-07-08] MEDS: Metoprolol Tartrate 50 MG TABLET PO ×2 (08:35→21:35)
[2022-07-08] MEDS: NaPROXEN 500 MG TABLET PO ×2 (08:37→21:35)
[2022-07-08] MEDS: 0.9 % Sodium Chloride Flush 3 ML SYRINGE IVFLUSH ×3 (08:38→21:35)
[2022-07-08] MEDS: Finasteride 5 MG TABLET PO (08:38)
--- NOTE | 2022-07-08 08:49 | P.PNIM_ITS ---
Subjective Subjective Date of Service: 07/08/22 Interval History: Seen in f/u for sepsis, UTI with encephalopathy, bacteremia Interval history: No fever, blood culture growing gram negative ant no sensitivity, urine culture e coli Review of Systems no fever or chils some confusion Physical Exam Vital Signs: Vital Signs: Last Vital Signs Temp 97.5 F 07/08/22 07:56 Pulse 70 07/08/22 07:56 Resp 17 07/08/22 07:56 BP 177/98 H 07/08/22 07:56 Pulse Ox 98 07/08/22 07:56 O2 Del Method 07/08/22 07:56 BMI result Body Mass Index 26.5 Const: Other: General: AO X 2, no acute distress Resp: CTA bilateral CVS: S1,S2,RRR GI: +BS, NT, no distention Skin: No rash Neuro: motor grossly intact Psych: appropriate affect Objective Data Active Medications Acetaminophen (Acetaminophen 325 Mg Tablet) 650 mg PO Q6H PRN PRN Reason: Pain, Mild (Pain Scale 1-3) Atorvastatin Calcium (Atorvastatin Calcium 40 Mg Tablet) 40 mg PO DAILY [facility] Last Admin: 07/08/22 08:35 Dose: 40 mg Documented By: SLICK Enoxaparin Sodium (Enoxaparin Sodium 40 Mg/0.4 Ml Syringe) 40 mg SUBCUT Q24H [facility] Last Admin: 07/07/22 17:21 Dose: 40 mg Documented By: SLICK Finasteride (Finasteride 5 Mg Tablet) 5 mg PO DAILY [facility] Last Admin: 07/08/22 08:38 Dose: 5 mg Documented By: SLICK Ceftriaxone Sodium 1 gm/ (Sodium Chloride) 100 mls @ 200 mls/hr IV Q24H [facility] Last Infusion: 07/07/22 18:02 Dose: 0 mls/hr Documented By: SLICK Magnesium Hydroxide (Milk Of Magnesia 30 Ml Oral.Susp) 30 ml PO DAILY PRN PRN Reason: Constipation Melatonin (Melatonin 3 Mg Tablet) 3 mg PO BEDTIME PRN PRN Reason: Insomnia Metoprolol Tartrate (Metoprolol Tartrate 50 Mg Tablet) 50 mg PO BID [facility]; Protocol Last Admin: 07/08/22 08:35 Dose: 50 mg Documented By: SLICK Naproxen (Naproxen 500 Mg Tablet) 500 mg PO BID [facility] Last Admin: 07/08/22 08:37 Dose: 500 mg Documented By: SLICK Ondansetron HCl (Ondansetron Hcl 4 Mg/2 Ml Vial) 4 mg IVPUSH Q8H PRN PRN Reason: Nausea and Vomiting Pharmacy Consult (Consult Rx Perform Med Rec) 1 each MISCELLANE ONCE PRN PRN Reason: Consult order Sodium Chloride (0.9 % Sodium Chloride Flush 3 Ml Syringe) 3 ml IVFLUSH QSHIFT [facility] Last Admin: 07/08/22 08:38 Dose: 3 ml Documented By: SLICK Labs CBC & Chem 7: 07/07/22 09:08 07/07/22 09:08 Labs: Laboratory Results - last 24 hr 07/07/22 07/07/22 09:08 09:08 MCV 82.5 MCH 29.2 MCHC 35.4 RDW 14.6 Plt Count 91 L MPV 9.8 Absolute Nucleated RBC 0.000 Nucleated RBC % (auto) 0.0 Anion Gap 18 Estim Creat Clear Calc 55.7 Estimated GFR > 60 Random Glucose 104 Calcium 8.6 Microbiology Microbiology Results: Microbiology 07/06/22 13:44 Blood Culture - Preliminary Blood - Venous Gram negative ant 07/06/22 15:42 Urine Culture - Final Urine clean catch - Urine mcmullen top Escherichia coli 07/06/22 13:44 Blood Culture - Preliminary Blood - Venous No growth after 24 hours. Assessment and Plan (1) Acute UTI: Status: Acute (2) Sepsis: Status: Acute Plan This is a 71 yo M with a PMH of BPH, for follicular lymphoma with bone marrow involvement, CVA with left leg weakness, hypertension, hyperlipidemia amongst others who presents to the hospital after being found by family to be due to increasing weakness, lethargic and found to have sepsis d/t UTI, has low K and low mag 1/ Sepsis.. met criteria with tachy and fever, No severe featuures--sepsis now resolved. 2/UTI as cause of above 3/ Dwayne negative ant bacteremia -Given Zosyn in EDx 1, - ceftriaxone D3 -urine culture = e coli -blood bx--GNR, sensitivity pending 3/Hypokalemia--corrected, repeat 4/Hypomagnesmia--corrected, repeat 5. Toxic/Metabolic Encephalopathy due to above -he is more lucid today 5/Weakness--likely due to combination of all above issues -Address underlying issues and reassess, likely PT eval before dc 6. HTN--resume BP meds tomorrow 5. BPH? finasteride 6. HLD--Lipitor 7. 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 heparin or Levenox, improved DNR/DNI -- per son who is HCP (patient unable to answer at this time) DVT pptx, Lovenox need for inaptient: sepsis needing IV Abx Quality Stroke Does the patient have a stroke diagnosis?: No VTE Prior VTE?: No VTE Risk Level:: Medical - moderate - high VTE Device Contraindication: Treatment Not Indicated VTE Drug Contraindication: N/A - Med Ordered
[2022-07-08] MEDS: cefTRIAXone sodium 1 GM in 0.9 % Sodium Chloride 100 ML IV (17:54)
--- NOTE | 2022-07-08 18:07 | PC.NURSE ---
Patient refused lovenox, pt informed on importance of med and understands, Dr. Blanc made aware
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
[2022-07-09 03:28] VITALS: BP 164/89; PULSE 59; RESP 16; TEMP 36.2; O2SAT 97
[2022-07-09 06:57] VITALS: BP 150/80; PULSE 81; RESP 18; TEMP 36.4; O2SAT 94
[2022-07-09] MEDS: Metoprolol Tartrate 50 MG TABLET PO (08:31)
[2022-07-09] MEDS: Finasteride 5 MG TABLET PO (08:31)
[2022-07-09] MEDS: Atorvastatin Calcium 40 MG TABLET PO (08:31)
[2022-07-09] MEDS: 0.9 % Sodium Chloride Flush 3 ML SYRINGE IVFLUSH (08:31)
[2022-07-09] MEDS: NaPROXEN 500 MG TABLET PO (08:31)
--- NOTE | 2022-07-09 10:19 | PM.DS ---
DS: Providers Provider Date of Service: 07/09/22 Date of admission: 07/06/22 16:46 Primary care physician: Esthela Carrillo MD DS: Diagnosis Discharge Diagnosis (1) Acute UTI: Status: Resolved (2) Sepsis: Status: Resolved DS: Summary Hospital Course Hospital Course: Chief Complaint: weakness and confusion This is a 71 yo M with a PMH of BPH, for follicular lymphoma with bone marrow involvement, CVA with left leg weakness, hypertension, hyperlipidemia amongst others who presents to the hospital after being found by family to be due to increasing weakness, lethargic with concern for possible infection. He is found to have sepsis due to UTI. with temperature of 102, tachycardia, yet normal WBC.? Additionally noed to have potassiumo f 2.9, magnesium of 1.5. UA is grossely positive, CT head chronic stable changes. ED management: Zosyn, potassium 10 meq, IVF. Patient prsented with with weakness, confusion and found to have UTI , dehydratied, low potassium and low magnesium. He was hydrated and initiated on IV Ceftriaoxone for UTI, blood culture grew gram negative and urine culture grew E.coli ESBL negative, he has recurent history of . coli UTI. He met criteria for sepsis which has now resolved. He likely suffered toxic metabolic encephalopath from UTI and this has resolved. He will will be discharge home to complet 2 weeks course of Ceftin for Sepsis, UTI due to e.coli, hypokalemia and hypomagnesemai were corrected. He is back at his baseline. Time Spent with Patient Time attestation: Total time spent providing and/or coordinating discharge services: Discharge coordination time: Greater than 30 minutes Quality: Safe Use of Opioids Does Pt have an Active Cancer Diagnosis on the Problem List?: No Quality: Stroke Does the patient have a stroke diagnosis?: No Physical Exam Vital Signs: Vital Signs: Last Vital Signs Temp 97.5 F 07/09/22 06:57 Pulse 81 07/09/22 06:57 Resp 18 07/09/22 06:57 BP 150/80 H 07/09/22 06:57 Pulse Ox 94 07/09/22 06:57 O2 Del Method 07/09/22 06:57 BMI result Body Mass Index 26.5 Const: Other: General: AO X 3, no acute distress Resp: CTA bilateral CVS: S1,S2,RRR GI: +BS, NT, no distention Skin: No rash Neuro: motor grossly intact Psych: appropriate affect DS: Data Data Completed and Pending Labs on day of discharge: Preliminary micro results at discharge 07/06/22 13:44 Blood Culture - Preliminary Blood - Venous No growth after 48 hours. Discharge Plan Discharge Anticipated Discharge Date/Time: 07/09/22 10:04 Patient Disposition: Home Health Service Discharge Diagnosis: Sepsis, UTI Referrals: Esthela Carrillo MD [Primary Care Provider] - 1 Week Discharge Medications: New cefuroxime axetil 500 mg tablet 500 mg PO BID 7 Days Qty: 28 0RF Continued atorvastatin 40 mg tablet 40 mg PO DAILY Qty: 90 3RF (DME) Depend Underwear For Men Cosmo-Md Misc See Rx Instructions .MEDSUPPLY Qty: 64 11RF Rx Instructions: As directed-size sm/med (DME) Washable bed pad Medium See Rx Instructions .Route .MEDSUPPLY Qty: 10 0RF Rx Instructions: As directed metoprolol tartrate 50 mg tablet 50 mg PO BID Qty: 180 3RF finasteride 5 mg tablet 5 mg PO DAILY 90 Days Qty: 90 0RF naproxen 500 mg tablet 500 mg PO BID Qty: 10 0RF Discharge Orders: Discharge Order (Routine); Ordered 07/09/22 Ordered By: Benedict Blanc Diet: Advance to usual diet Activity on Discharge: As tolerated Stand Alone Forms: Patient Portal Discharge page Care Plan Goals: Full recovery from sepsis, UTI Health Concerns: UTI, sepsis Plan of Treatment: Take Cefuroxime 500 mg twice daily and finish taking all of them Follow up with your Doctor in a week, call for appointment Assessment: As above Discharge Date/Time: 07/09/22 15:49
[2022-07-09] MEDS: Acetaminophen 325 MG TABLET 650 MG PO (10:34)
--- NOTE | 2022-07-09 11:09 | MHC.CM.PN ---
Per MD plan for patient to return home today, notification sent to [facility].
[2022-07-09 11:12] VITALS: BP 115/86; PULSE 78; RESP 18; TEMP 36.1; O2SAT 96
== END 2022-07-09 15:49 | disposition home health service (06) | DRG 871 ==
LOC: HO.ED 16:07 → HO.EDOVER 16:47 → HO.S3 17:05
PROVIDERS: Admitting Provider Internal Medicine; Emergency Provider Student in an Organized Health Care Education/Training Program; PCP Internal Medicine; Visit Provider Internal Medicine
DX: A41.9 Sepsis, unspecified organism (principal); G92.8 Other toxic encephalopathy; I69.354 Hemiplegia and hemiparesis following cerebral infarction affecting left non-dominant side; N39.0 Urinary tract infection, site not specified; D69.3 Immune thrombocytopenic purpura; C82.90 Follicular lymphoma, unspecified, unspecified site; Z66 Do not resuscitate; N40.0 Benign prostatic hyperplasia without lower urinary tract symptoms; E83.42 Hypomagnesemia; E87.6 Hypokalemia; B96.20 Unspecified Escherichia coli [E. coli] as the cause of diseases classified elsewhere; E78.5 Hyperlipidemia, unspecified; F03.90 Unspecified dementia, unspecified severity, without behavioral disturbance, psychotic disturbance, mood disturbance, and anxiety; Z87.440 Personal history of urinary (tract) infections; Z20.822 Contact with and (suspected) exposure to COVID-19; Z87.891 Personal history of nicotine dependence; Z79.899 Other long term (current) drug therapy
CPT/HCPCS: 36415; 70450; 71045; 80048; 80053; 81001; 83605; 83735; 83880; 84484; 85025; 85027; 85610; 87040; 87077; 87086; 87088; 87186; 87205; 87502; 87635; 93005; 99285; J0696; J1650; J2543; J3475

== ENCOUNTER 2022-08-24 15:46 | Observation (INO) | payer MEDICARE, MEDICAID, SELFPAY ==
--- NOTE | ~2022-08-24 | CT_ITS ---
EXAMINATION: NONCONTRAST HEAD CT NONCONTRAST CERVICAL SPINE CT INDICATION INFORMATION: Syncope and fall COMPARISON: Head CT 07/06/2022, cervical spine CT 06/05/2021 TECHNIQUE: Separate noncontrast CT examinations of the head and cervical spine were performed. Coronal and sagittal images were created for each examination at the technologist workstation. This CT examination was performed using dose optimization techniques as appropriate, variously including the following: *Automated exposure control *Adjustment of mA and/or kV according to patient size (this includes techniques or standardized protocols for targeted exams where dose is matched to indication/reason for exam; i.e. extremities or head) *Use of iterative reconstruction technique DLP: 1245 mGy-cm FINDINGS: HEAD: No intra or extra-axial fluid collection, hemorrhage, or mass. No ventriculomegaly. No midline shift or herniation. Basal cisterns are patent. Question of small area of loss of mcmullen-white differentiation bilateral right frontal lobe on series 3 image 63 and 64 not seen previously, possibly a small interval infarct, exact acuity uncertain. Proportional prominence of the ventricles and sulcal spaces is consistent with mild volume loss. Patchy periventricular and deep white matter hypoattenuation is consistent with moderate small vessel ischemic changes. Bilateral basal ganglia calcifications. Small remote gangliocapsular lacunar infarcts on the right redemonstrated. No calvarial fracture or soft tissue abnormality. The mastoid air cells and visualized portions of the paranasal sinuses are well aerated. CERVICAL SPINE: Alignment: Minimal grade 1 anterolisthesis at C4-C5. No additional subluxation. Vertebra: No acute fracture. No prevertebral soft tissue swelling. Degenerative disc disease: Multilevel cervical spondylosis with disc height loss, endplate sclerosis and proliferative change. Findings most advanced at C5-C6 and C6-C7 where there is moderate disc height loss. Multilevel bilateral facet arthrosis and uncovertebral spurring. Left-sided facet joint ankylosis at C2-C3. Other findings: Very mild mosaic attenuation in the visualized upper lungs, likely due to mild air trapping. Thyroid gland grossly unremarkable. No cervical lymphadenopathy. Visualized major salivary glands are unremarkable. CT/CT cervical spine wo IV con IMPRESSION: 1. No intracranial hemorrhage, calvarial fracture, or other acute intracranial abnormality. 2. Question of small interval right frontal lobe infarct, exact acuity uncertain. Correlate clinically. 3. No traumatic subluxation or acute cervical spine fracture.
[2022-08-24 16:02] VITALS: BP 180/100; PULSE 104; O2SAT 98; BMI 26.6
--- NOTE | 2022-08-24 16:15 | ECG_ITS ---
Test Reason : FALL Blood Pressure : / mmHG Vent. Rate : 083 BPM Atrial Rate : 083 BPM P-R Int : 188 ms QRS Dur : 074 ms QT Int : 398 ms P-R-T Axes : 058 -12 007 degrees QTc Int : 467 ms Normal sinus rhythm Normal ECG When compared with ECG of 06-JUL-2022 13:59, Nonspecific T wave abnormality no longer evident in Anterior leads Referred By: Kiara Hernandez Electronically Signed By:Narciso Wen
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
[2022-08-24 16:45] LABS: Basophils Absolute Auto 0.1 X10*3/uL (0.0-0.2); Basophils Percent Auto 0.9 % (0-2); Eosinophils Absolute Auto 0.1 X10*3/uL (0.0-0.4); Eosinophils Percent Auto 1.1 % (0-4); Hematocrit 47.5 % (42.0-52.0); Hemoglobin 16.3 g/dl (14.0-18.0); Imm Gran Abs Auto 0.01 X10*3/uL (0.00-0.03); Imm Gran Pct Auto 0.2 % (0.0-0.4); Lymphocytes Absolute Auto 0.9 X10*3/uL (1.2-4.9); Lymphocytes Percent Auto 15.5 % (20-40); MANUAL DIFF FLAG NO; Mean Corpuscular HGB Conc 34.3 g/dl (31.0-36.0); Mean Corpuscular Hemoglobin 28.5 pg (27.0-33.0); Mean Platelet Volume 9.7 fL (9.4-12.4); Monocytes Absolute Auto 0.4 X10*3/uL (0.1-1.2); Monocytes Percent Auto 6.3 % (2-11); Neutrophils Absolute Auto 4.3 x10*3/uL (2.0-8.3); Platelet Count 160 X10*3/uL (160-400); Red Blood Count 5.72 X10*6/uL (4.60-5.80); Red Cell Distribution Width 14.4 % (11.0-16.0); White Blood Count 5.7 X10*3/uL (4.8-10.8)
[2022-08-24 16:50] LABS: Prothrombin Time 11.9 SEC (10.0-13.1)
[2022-08-24 17:10] LABS: Alanine Aminotransferase 18 U/L (0-40); Albumin Level 4.6 g/dL (3.5-5.0); Alkaline Phosphatase 123 U/L (39-117); Anion Gap 12 (12-20); Aspartate Amino Transferase 22 U/L (5-37); Bilirubin Total 1.1 mg/dL (0.0-1.0); Blood Urea Nitrogen 12 mg/dL (9-16); Calcium 9.8 mg/dL (8.4-10.2); Carbon Dioxide 28 mmol/L (22-29); Chloride 103 mmol/L (96-108); Creatinine Clr Calc Pharmacy 56.1; Estimated Glomerular Filt Rate > 60; Glucose Random 78 mg/dL (60-115); Potassium 4.3 mmol/L (3.3-5.1); Sodium 139 mmol/L (135-145); Total Protein 6.7 g/dL (6.5-8.0)
[2022-08-24 17:24] LABS: Troponin-I High Sensitivity < 3.5 ng/L (<3.5-35.0)
[2022-08-24 19:16] VITALS: BP 151/107; PULSE 86; TEMP 36.4; O2SAT 99
[2022-08-24 20:18] VITALS: BP 166/115; PULSE 89; TEMP 36.4; O2SAT 98
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
[2022-08-24 22:52] LABS: Appearance Urine Cloudy; Color Urine Yellow; Glucose Urine UA Negative (Negative); Leukocyte Esterase Urine Large (3+) (Negative); Nitrite Urine Negative (Negative); PH 5.5 (5.0-9.0); Specific Gravity - Urine 1.015 (1.005-1.025); UMIC TRIGGER UACC YES; Urine Blood Trace (Negative); Urine Ketones Negative (Negative); Urine Protein Negative (Neg-Trace)
[2022-08-24 23:04] LABS: COVID-19 Test Negative (Negative); IDNOW Serial# 55D5AD1C
[2022-08-24 23:14] LABS: Bacteria Urine 4+ (None Seen); Hyaline Casts Urine 0-2 /LPF (0-2); RBC Urine 0-2 /HPF (0-2); Squamous Epithelial Cell Urine 0-2 /HPF (0-2); UACC Culture Trigger YES; WBC Urine >50 /HPF (0-5)
[2022-08-24 23:39] VITALS: BP 150/100; PULSE 83; RESP 18; TEMP 37; O2SAT 95
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
[2022-08-25] MEDS: Enoxaparin Sodium 40 MG/0.4 ML SYRINGE SUBCUT ×2 (00:43→23:28)
[2022-08-25] MEDS: cefTRIAXone sodium 1 GM in 0.9 % Sodium Chloride 50 ML IV ×2 (00:44→21:49)
[2022-08-25] MEDS: 0.9 % Sodium Chloride Flush 3 ML SYRINGE IVFLUSH ×4 (00:45→19:47)
--- NOTE | 2022-08-25 00:49 | PC.NURSE ---
this RN placed 20 G IV in L AC. flushed and working well. this rn medicated pt according to MAR.
[2022-08-25 03:46] VITALS: BP 150/102; PULSE 72; RESP 17; TEMP 36.4; O2SAT 100
[2022-08-25] MEDS: Acetaminophen 325 MG TABLET 650 MG PO ×2 (03:54→19:45)
[2022-08-25] MEDS: Melatonin 3 MG TABLET 6 MG PO (03:55)
[2022-08-25 07:18] LABS: MANUAL DIFF FLAG NO
[2022-08-25 07:21] LABS: Basophils Absolute Auto 0.1 X10*3/uL (0.0-0.2); Eosinophils Absolute Auto 0.1 X10*3/uL (0.0-0.4); Eosinophils Percent Auto 1.4 % (0-4); Hemoglobin 16.3 g/dl (14.0-18.0); Imm Gran Abs Auto 0.02 X10*3/uL (0.00-0.03); Imm Gran Pct Auto 0.4 % (0.0-0.4); Lymphocytes Absolute Auto 1.2 X10*3/uL (1.2-4.9); Lymphocytes Percent Auto 23.3 % (20-40); Mean Corpuscular HGB Conc 34.7 g/dl (31.0-36.0); Mean Corpuscular Hemoglobin 29.2 pg (27.0-33.0); Mean Corpuscular Volume 84.2 fL (80.0-98.0); Mean Platelet Volume 9.8 fL (9.4-12.4); Monocytes Absolute Auto 0.3 X10*3/uL (0.1-1.2); Monocytes Percent Auto 5.9 % (2-11); Neutrophils Absolute Auto 3.4 x10*3/uL (2.0-8.3); Platelet Count 145 X10*3/uL (160-400); Red Blood Count 5.58 X10*6/uL (4.60-5.80); Red Cell Distribution Width 14.5 % (11.0-16.0); White Blood Count 5.1 X10*3/uL (4.8-10.8)
[2022-08-25 07:39] VITALS: BP 182/103; PULSE 72; RESP 18; TEMP 36.6; O2SAT 92
[2022-08-25 07:57] LABS: Anion Gap 11 (12-20); Blood Urea Nitrogen 11 mg/dL (9-16); Calcium 9.5 mg/dL (8.4-10.2); Carbon Dioxide 28 mmol/L (22-29); Chloride 103 mmol/L (96-108); Creatinine Clr Calc Pharmacy 61.8; Estimated Glomerular Filt Rate > 60; Glucose Random 78 mg/dL (60-115); Potassium 4.1 mmol/L (3.3-5.1); Sodium 138 mmol/L (135-145)
--- NOTE | 2022-08-25 08:17 | PHA.MEDREC ---
Pharmacy Consult ? Medication Reconciliation Pharmacy has completed the medication reconciliation. Called patient's daughter Martha ([phone]) and confirmed meds. Pt's daughter manages medications for patient and states they also take terazosin 10mg daily, but unable to take it for a few weeks because they need to follow up with their PCP with an appointment for refills.
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
[2022-08-25 09:00] VITALS: BP 182/103; PULSE 72; O2SAT 92
[2022-08-25] MEDS: Metoprolol Tartrate 50 MG TABLET PO ×2 (11:07→19:45)
[2022-08-25] MEDS: Atorvastatin Calcium 40 MG TABLET PO (11:07)
[2022-08-25] MEDS: Finasteride 5 MG TABLET PO (11:07)
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
[2022-08-25 15:21] VITALS: BP 155/89; PULSE 58; RESP 17; TEMP 36.5; O2SAT 100
[2022-08-25 19:14] VITALS: BP 169/103; PULSE 72; RESP 18; TEMP 36.4; O2SAT 99
[2022-08-25] MEDS: Doxazosin Mesylate 2 MG TABLET 8 MG PO (19:44)
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
[2022-08-26 03:33] VITALS: BP 129/79; PULSE 73; RESP 15; TEMP 36.1; O2SAT 94
[2022-08-26 07:36] VITALS: BP 115/80; PULSE 94; RESP 16; TEMP 36.4; O2SAT 95
[2022-08-26] MEDS: Metoprolol Tartrate 50 MG TABLET PO ×2 (09:23→21:03)
[2022-08-26] MEDS: Finasteride 5 MG TABLET PO (09:23)
[2022-08-26] MEDS: Atorvastatin Calcium 40 MG TABLET PO (09:23)
[2022-08-26] MEDS: 0.9 % Sodium Chloride Flush 3 ML SYRINGE IVFLUSH ×3 (09:27→21:04)
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
[2022-08-26 15:00] VITALS: BP 108/70; PULSE 75; RESP 16; TEMP 36.1; O2SAT 97
[2022-08-26] MEDS: Ibuprofen 400 MG TABLET PO (15:24)
[2022-08-26 19:05] VITALS: BP 114/73; PULSE 80; RESP 16; TEMP 36.1; O2SAT 97
[2022-08-26] MEDS: cefTRIAXone sodium 1 GM in 0.9 % Sodium Chloride 50 ML IV (21:03)
[2022-08-26] MEDS: Doxazosin Mesylate 2 MG TABLET 8 MG PO (21:03)
[2022-08-26] MEDS: Enoxaparin Sodium 40 MG/0.4 ML SYRINGE SUBCUT (21:03)
[2022-08-27] MEDS: Melatonin 3 MG TABLET 6 MG PO (01:03)
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
[2022-08-27 04:00] VITALS: BP 146/80; PULSE 61; RESP 16; TEMP 36.6; O2SAT 97
[2022-08-27 07:52] VITALS: BP 138/90; PULSE 72; RESP 16; TEMP 36.2; O2SAT 100
[2022-08-27] MEDS: 0.9 % Sodium Chloride Flush 3 ML SYRINGE IVFLUSH ×3 (09:03→22:50)
[2022-08-27] MEDS: Atorvastatin Calcium 40 MG TABLET PO (09:03)
[2022-08-27] MEDS: Metoprolol Tartrate 50 MG TABLET PO (09:03)
[2022-08-27] MEDS: Finasteride 5 MG TABLET PO (09:03)
--- NOTE | 2022-08-27 10:20 | MHC.CM.PN ---
Santy ROSALESA updated in careport.
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
[2022-08-27 15:21] VITALS: BP 138/90; PULSE 72; O2SAT 100
[2022-08-27 15:23] VITALS: BP 119/74; PULSE 65; RESP 16; TEMP 36.5; O2SAT 96
--- NOTE | 2022-08-27 15:23 | P.F2F_ITS ---
Service Date Service Date: 08/27/22 Encounter Date of encounter: 08/27/22 Reasons for Services Signs and symptoms assessed: falls, UTI Reason for physical therapy: home safety and mobility, therapeutic exercises, gait/transfer training, assess need for DME, ADL training and energy conservation Homebound: Leaving the home is medically contraindicated at this time without the asist of a device and/or another person due th the listed conditions above and below. Reason homebound: unsteady gait / fall risk and weakness related to hospital stay Certification: Based on the above findings, I certify that this patient is confined to the home and needs intermittent [facility] care, physical therapy and/or speech therapy, or continues to need occupational therapy. The patient is under my care, and I have initiated the establishment of the plan of care. The patient will be followed by a physician who will periodically review the plan of care.
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
[2022-08-27 19:16] VITALS: BP 147/86; PULSE 80; RESP 16; TEMP 36.9; O2SAT 99
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
[2022-08-28] MEDS: diphenhydrAMINE HCL 50 MG/ML VIAL 25 MG IVPUSH (00:19)
[2022-08-28 07:37] VITALS: BP 148/84; PULSE 85; RESP 16; TEMP 36.1; O2SAT 97
[2022-08-28] MEDS: Metoprolol Tartrate 50 MG TABLET PO (08:45)
[2022-08-28] MEDS: Atorvastatin Calcium 40 MG TABLET PO (08:45)
[2022-08-28] MEDS: Finasteride 5 MG TABLET PO (08:48)
[2022-08-28] MEDS: 0.9 % Sodium Chloride Flush 3 ML SYRINGE IVFLUSH (08:49)
--- NOTE | 2022-08-28 10:16 | MHC.CM.PN ---
Addendum entered by Rosetta Bravo RN 08/28/22 13:57: HCP RECEIVED AND IN [facility]. COPY TO BE PRINTED AND PLACED IN CHART Original Note: CALL TO [employer] SANTOSH BATISTA [phone] REQUEST FOR HCP TO BE FAXED TO [address] CM AWAITING COPY TO UPLOAD INTO [facility]AREPORT AND PLACE IN CHART.
[2022-08-28 13:41] VITALS: BP 148/84; PULSE 85; O2SAT 97
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
[2022-08-28 15:30] VITALS: BP 157/82; PULSE 60; RESP 16; TEMP 36.3; O2SAT 99
== END 2022-08-28 17:57 | disposition home health service (06) ==
LOC: HO.ED 16:42 → HO.EDOVER 23:59 → HO.S3 08-25 00:34
PROVIDERS: Student in an Organized Health Care Education/Training Program; Admitting Provider Student in an Organized Health Care Education/Training Program; Emergency Provider Emergency Medicine Emergency Medical Services; PCP Internal Medicine; Visit Provider Family Medicine
DX: R55 Syncope and collapse (principal); N39.0 Urinary tract infection, site not specified; B96.20 Unspecified Escherichia coli [E. coli] as the cause of diseases classified elsewhere; R29.6 Repeated falls; R53.81 Other malaise; I10 Essential (primary) hypertension; E78.5 Hyperlipidemia, unspecified; I69.354 Hemiplegia and hemiparesis following cerebral infarction affecting left non-dominant side; N40.0 Benign prostatic hyperplasia without lower urinary tract symptoms; F03.90 Unspecified dementia, unspecified severity, without behavioral disturbance, psychotic disturbance, mood disturbance, and anxiety; Z87.891 Personal history of nicotine dependence; Z87.440 Personal history of urinary (tract) infections; Z85.46 Personal history of malignant neoplasm of prostate; Z79.02 Long term (current) use of antithrombotics/antiplatelets; Z79.899 Other long term (current) drug therapy; Z20.822 Contact with and (suspected) exposure to COVID-19
CPT/HCPCS: 36415; 70450; 72125; 80048; 80053; 81001; 81003; 84484; 85025; 85610; 87086; 87088; 87186; 87635; 93005; 96365; 96366; 96372; 96374; 97116; 97162; 97530; 99218; 99285; J0696; J1200; J1650

== ENCOUNTER 2022-09-01 13:14 | Inpatient (IN) | payer MEDICARE, MEDICAID, SELFPAY ==
--- NOTE | ~2022-09-01 | CT_ITS ---
EXAMINATION: CT HEAD WITHOUT CONTRAST CT CERVICAL SPINE WITHOUT CONTRAST CLINICAL INFORMATION: Altered mental status. COMPARISON: CT head and CT cervical spine 05/25/2020 TECHNIQUE: Imaging was performed from the skull base to vertex without intravenous administration of contrast. In addition, helical noncontrast CT imaging was acquired through the cervical spine and source images were reviewed along with axial reconstructions and sagittal and coronal MPRs. [This CT examination was performed using dose optimization techniques as appropriate, variously including the following: *Automated exposure control *Adjustment of mA and/or kV according to patient size (this includes techniques or standardized protocols for targeted exams where dose is matched to indication/reason for exam; i.e. extremities or head) *Use of iterative reconstruction technique] DLP: 1101 mGy-cm FINDINGS: HEAD: No intracranial mass, hemorrhage, or midline shift is visualized. There is generalized global volume loss. There is moderate prominence of the ventricles and the sulci . There is moderate hypodensity of the periventricular white matter due to chronic small vessel ischemic disease. There are vascular calcifications of the internal carotid arteries bilaterally. No extra-axial collections are identified. The paranasal sinuses and mastoid air cells are well aerated. CERVICAL SPINE: There is no evidence of acute cervical spine fracture. Vertebral bodies remain normal in height. Cervical vertebrae have normal alignment. There is multilevel degenerative spondylosis of the cervical spine with disc height narrowing and endplate spurs and facet joint arthrosis No pre- or paravertebral soft tissue abnormality is identified. Limited assessment of the lung apices is unremarkable. CT/CT cervical spine wo IV con IMPRESSION: 1. No acute intracranial pathology. 2. No CT evidence of acute cervical spine fracture or traumatic subluxation
--- NOTE | ~2022-09-01 | XR_ITS ---
EXAMINATION: XR CHEST CLINICAL INFORMATION: Altered mental status COMPARISON: Chest x-ray on 07/06/2022 TECHNIQUE: Frontal view of the chest was obtained. FINDINGS: The cardiac silhouette is normal. There is mild diffuse bronchial wall thickening. There are no areas of consolidation. There are no pleural effusions or pneumothoraces. The bones and soft tissues are unremarkable for the patient's age. XR/XR chest 1V IMPRESSION: Bronchial wall thickening may be infectious and/or inflammatory in etiology.
[2022-09-01 13:25] VITALS: BP 148/101; BP 164/101; PULSE 103; PULSE 105; RESP 18; TEMP 37.1; O2SAT 95; O2SAT 97; BMI 27.7
--- NOTE | 2022-09-01 13:43 | ECG_ITS ---
Test Reason : WEAKNESS SOB Blood Pressure : / mmHG Vent. Rate : 100 BPM Atrial Rate : 100 BPM P-R Int : 178 ms QRS Dur : 068 ms QT Int : 360 ms P-R-T Axes : 054 -03 002 degrees QTc Int : 464 ms Normal sinus rhythm Nonspecific ST abnormality Abnormal ECG When compared with ECG of 24-AUG-2022 16:46, No significant change was found Referred By: Helene Hankins Electronically Signed By:KRISTEN CLOUD MD
--- NOTE | 2022-09-01 14:40 | ED.MALEGU ---
HPI - Male Genitourinary General Chief complaint: Urogenital-Male Stated complaint: AMS Time Seen by Provider: 09/01/22 13:25 Source: patient Mode of arrival: ambulatory History of Present Illness HPI Narrative: 71-year-old male with a past medical history of CVA with residual left-sided deficits, BPH, HTN, HLD, recent admission to our facility discharged on 08/27 for UTI with deconditioning currently on cefdinir presenting to ED via EMS for reported AMS beginning at 18:00 last night. Patient lives with son who reports patient became less responsive, confused, & unable to ambulate. Reports at baseline patient alert, talkative/money and walks with walker. Also reports decreased p.o. intake. Denies known fall/injury or trauma Onset (ago): day(s) Related Data Home Medications Medication Instructions Recorded Confirmed ibuprofen 200 mg tablet 400 mg PO Q8H PRN Back Pain 08/25/22 08/25/22 terazosin 10 mg capsule 1 cap BEDTIME 08/25/22 08/25/22 Previous Rx's Medication Instructions Recorded Depend Underwear For Men Alexy #64 ea 12/01/21 (diaper,brief,adult,disposable) Washable bed pad #10 ea 12/01/21 metoprolol tartrate 50 mg tablet 50 mg PO BID #180 tabs 12/04/21 finasteride 5 mg tablet 5 mg PO DAILY 90 days #90 tabs 08/13/22 atorvastatin 40 mg tablet 40 mg PO DAILY #90 tabs 08/23/22 cefdinir 300 mg capsule 300 mg PO BID #10 caps 08/27/22 Allergies Allergy/AdvReac Type Severity Reaction Status Date / Time No Known Allergies Allergy Verified 06/20/22 11:43 [No Known Allergies*] Review of Systems Review of Systems: ROS limited secondary to patient's acute mental status Yes all other systems are reviewed and are negative Constitutional: Constitutional: Reports as per [facility] Past Medical History Attestation statement: The following information was validated with the patient. Medical History Abnormal computed tomography angiography (CTA) Annual physical exam BPH (benign prostatic hyperplasia) CVA (cerebral vascular accident) Dementia Follicular lymphoma Hearing loss HTN (hypertension) Hyperglycemia Hyperlipidemia Lumbar spinal stenosis Recurrent UTI Surgical History H/O colonoscopy Family History Family History Father Colon cancer HTN (hypertension) Brother Non-Hodgkin lymphoma HTN (hypertension) Sister HTN (hypertension) Mother HTN (hypertension) TIA (transient ischemic attack) Social History Social History Household Members: Children Household Members Other:: He mentioned 2 dogs and a person, but not answering now. Housing: House Housing Other:: Unsure if this is correct. Are you a primary care team assistant to a significant other at home: No Do you presently have visiting nurse or other home services: No Unable to assess alcohol history related to: Unable to respond Alcohol intake: former Patient Tobacco Use Status: Former Tobacco user Quit Date: over 30 years ago e-Cigarette/Vaping Use: Never Used Advance Directives: Yes Advance Directives on File: Yes Advance Directives Date on File: 08/17/14 service: No Current occupational status: retired Cognitive needs: No Hearing needs: Yes Vision needs: No Physical Exam Vital Signs: Vital Signs: Last Vital Signs Temp 98.8 F 09/01/22 13:25 Pulse 103 H 09/01/22 13:25 Resp 18 09/01/22 13:25 BP 148/101 H 09/01/22 13:25 Pulse Ox 95 09/01/22 13:25 O2 Del Method 09/01/22 13:25 BMI result Body Mass Index 27.7 Const: General: cooperative and no acute distress Orientation/consciousness: oriented to person and oriented to place Limitations: altered mental status HEENT: Head: Yes normal to inspection and Yes atraumatic Ears: hearing grossly normal bilaterally General nose exam: Normal external nose present Face and sinus: Yes normal facial exam Throat: Yes posterior oropharynx normal and Yes uvula midline Eyes: General: appearance normal, both eyes and all related structures Pupils: Equal, round and reactive pupils present EOM: EOMs intact bilaterally Neck: Neck: Yes normal visual inspection and Yes no meningeal signs Resp: Effort & Inspection: normal respiratory effort and no respiratory distress Auscultation: clear to auscultation bilaterally, no crackles, no rales, no rhonchi and no wheezes Cardio: Rate: regular rate Heart sounds: S1 normal heart sound present and S2 normal heart sound present GI: Inspection: Yes normal to inspection Palpation (GI): Soft to palpation, nontender, no guarding and not rigid Skin: Rashes: no rashes Wounds: no wounds Neuro: General: oriented to person, oriented to place, tone normal, moves all extremities, no meningeal signs, no focal motor deficits and CN's II-XI intact bilaterally Cranial nerves: Yes Equal, round and reactive pupils present Extrem: General: Yes normal to inspection and Yes no pedal edema Course Course Course Narrative: -1533--no leukocytosis. Labs otherwise reassuring. Troponin negative XR chest 1V IMPRESSION: Bronchial wall thickening may be infectious and/or inflammatory in etiology. > Tamiflu given -influenza A positive -UA with RBCs/blood, not infected. CT head/brain wo IV con/CT cervical spine wo IV con IMPRESSION: 1. No acute intracranial pathology. 2. No CT evidence of acute cervical spine fracture or traumatic subluxation >> plan to admit for further management Medications Administered Discontinued Medications Generic Name Dose Route Start Last Admin Trade Name Freq PRN Reason Stop Dose Admin Sodium Chloride 1,000 mls @ 999 mls/hr 09/01/22 13:45 09/01/22 17:17 Ns IV 09/01/22 14:45 999 mls/hr .Q1H1M DEONDRE Administration Ceftriaxone Sodium 1 gm/ 50 mls @ 100 mls/hr 09/01/22 15:10 09/01/22 17:17 Sodium Chloride IV 09/01/22 15:39 100 mls/hr ONCE ONE Administration Oseltamivir Phosphate 75 mg 09/01/22 15:32 09/01/22 17:17 Oseltamivir Phosphate 75 Mg Capsule PO 09/01/22 15:33 75 mg ONCE ONE Administration Medical Decision Making Medical Decision Making [facility] Narrative: 71-year-old male with a past medical history of CVA with residual left-sided deficits, BPH, HTN, HLD, recent admission to our facility discharged on 08/27 for UTI with deconditioning currently on Cefdinir presenting to ED via EMS for reported AMS beginning at 18:00 last night. On exam hypertensive, mildly tachycardic likely from dehydration, A&O x2, confused, exam nonfocal. Concern for CVA/ICH vs metabolic/infectious etiologies. Low suspicion for severe sepsis. Plan: EKG, labs, UA, CXR, head CT, anticipated admission Differential Diagnoses: Differential diagnosis (as above) Discussion of management with other physician/healthcare provider/other source (e.g., hospitalist, consumer services consultant, behavioral health): Discussion w/other physician/healthcare provider Management of the patient was discussed with: Hospitalist Lab Attestation: I reviewed the patient's lab results. Independent interpretation of EKG, rhythm strip, radiology study: Independent interp EKG,rhythm strip, radiology study I performed an independent interpretation of the: EKG My interpretation is normal sinus rhythm at a rate of 100. Pr interval 176. QTC 464. No STEMI. Non-ED record review: Review of External (Non-ED) Record External record reviewed:: Inpatient record, Outpatient record, Prior outpatient labs and Prior outpatient radiology Chronic conditions affecting care (e.g., diabetes, HTN): Chronic conditions affecting care (e.g., diabetes, HTN) Discharge Plan Discharge Clinical Impression: Influenza A, Altered mental status Patient Disposition: Admitted As Inpatient
[2022-09-01 14:52] LABS: Basophils Percent Auto 0.4 % (0-2); Hematocrit 46.5 % (42.0-52.0); Hemoglobin 16.3 g/dl (14.0-18.0); Imm Gran Abs Auto 0.02 X10*3/uL (0.00-0.03); Imm Gran Pct Auto 0.4 % (0.0-0.4); Lymphocytes Absolute Auto 0.2 X10*3/uL (1.2-4.9); Lymphocytes Percent Auto 4.1 % (20-40); MANUAL DIFF FLAG SCAN; Mean Corpuscular HGB Conc 35.1 g/dl (31.0-36.0); Mean Corpuscular Hemoglobin 29.1 pg (27.0-33.0); Monocytes Absolute Auto 0.3 X10*3/uL (0.1-1.2); Monocytes Percent Auto 5.7 % (2-11); Neutrophils Absolute Auto 4.4 x10*3/uL (2.0-8.3); Neutrophils Percent Auto 89.4 % (45-73); PLT CLUMP 1; Red Cell Distribution Width 14.3 % (11.0-16.0); SCAN SMEAR FLAG 1
[2022-09-01 14:54] LABS: Ammonia 18 umol/L (13-55)
[2022-09-01 15:04] LABS: Alanine Aminotransferase 32 U/L (0-40); Albumin Level 4.7 g/dL (3.5-5.0); Alkaline Phosphatase 116 U/L (39-117); Anion Gap 15 (12-20); Aspartate Amino Transferase 23 U/L (5-37); Bilirubin Direct 0.4 mg/dL (0.0-0.5); Bilirubin Total 1.2 mg/dL (0.0-1.0); Blood Urea Nitrogen 10 mg/dL (9-16); Calcium 9.2 mg/dL (8.4-10.2); Carbon Dioxide 24 mmol/L (22-29); Chloride 105 mmol/L (96-108); Creatinine Clr Calc Pharmacy 53.7; Estimated Glomerular Filt Rate > 60; Glucose Random 106 mg/dL (60-115); Magnesium 2.2 mg/dL (1.6-2.6); Potassium 4.5 mmol/L (3.3-5.1); Sodium 139 mmol/L (135-145); Total Protein 6.9 g/dL (6.5-8.0)
[2022-09-01 15:08] LABS: B Type Natriuretic Peptide 116 pg/mL (<100)
[2022-09-01 15:09] LABS: White Blood Count 4.9 X10*3/uL (4.8-10.8)
[2022-09-01 15:10] LABS: Platelet Count 76 X10*3/uL (160-400)
[2022-09-01 15:11] LABS: Troponin-I High Sensitivity < 3.5 ng/L (<3.5-35.0)
[2022-09-01 15:11] LABS: Influenza A PCR POSITIVE (Negative); Influenza B PCR NEGATIVE (Negative); Resp Syncy Virus RNA Qual PCR NEGATIVE (Negative); SARS COV2 PCR INHOUSE NEGATIVE (Negative)
[2022-09-01 16:04] LABS: Appearance Urine Clear; Color Urine Yellow; Glucose Urine UA Negative (Negative); Leukocyte Esterase Urine Trace (Negative); Nitrite Urine Negative (Negative); PH 5.5 (5.0-9.0); Specific Gravity - Urine 1.015 (1.005-1.025); UMIC TRIGGER UACC YES; Urine Blood Large (3+) (Negative); Urine Ketones 15 mg/dL (Negative); Urine Protein Trace mg/dL (Neg-Trace)
[2022-09-01 16:11] LABS: Bacteria Urine None Seen (None Seen); Hyaline Casts Urine 0-2 /LPF (0-2); RBC Urine >20 /HPF (0-2); Squamous Epithelial Cell Urine 0-2 /HPF (0-2); WBC Urine 0-5 /HPF (0-5)
[2022-09-01 16:16] LABS: SLIDE REVIEW VERIFIED
[2022-09-01] MEDS: 0.9 % Sodium Chloride 1,000 ML 999 ML IV (17:17)
[2022-09-01] MEDS: Oseltamivir Phosphate 75 MG CAPSULE PO (17:17)
[2022-09-01] MEDS: cefTRIAXone sodium 1 GM in 0.9 % Sodium Chloride 50 ML IV (17:17)
--- NOTE | 2022-09-01 17:55 | PM.IMHP ---
History of Present Illness Date of Service: 09/01/22 Chief Complaint: altered mental status Chief Complaint: weakness and confusion This is a 71 yo M with a PMH of BPH, for follicular lymphoma with bone marrow involvement, CVA with left leg weakness, hypertension, hyperlipidemia , recent hospitalization for UTI and still on Abx (Cefdinir). He lives with his son who brought him to be evluated for being confused for about 24 hours. AT baseline he is not all that coherent and so not able to give any detail history. Work up has revealed influeza though not respiratory difficulty and no fever. UA show persistent UTI Review of Systems Review of Systems: Gen: no fever Resp: no sob, no cough CV: no chest, no WREN, no leg edema GI: No n/v, no abd pain Neuro:+ confusion [facility] Medical History Abnormal computed tomography angiography (CTA) Annual physical exam BPH (benign prostatic hyperplasia) CVA (cerebral vascular accident) Dementia Follicular lymphoma Hearing loss HTN (hypertension) Hyperglycemia Hyperlipidemia Lumbar spinal stenosis Recurrent UTI Family History Father Colon cancer HTN (hypertension) Brother Non-Hodgkin lymphoma HTN (hypertension) Sister HTN (hypertension) Mother HTN (hypertension) TIA (transient ischemic attack) Surgical History H/O colonoscopy Social History Household Members: Children Household Members Other:: He mentioned 2 dogs and a person, but not answering now. Housing: Apartment Housing Other:: Unsure if this is correct. Are you a primary hearing care practitioner to a significant other at home: No Do you presently have visiting nurse or other home services: Yes Unable to assess alcohol history related to: Refusing to respond Alcohol intake: former Patient Tobacco Use Status: Former Tobacco user Quit Date: over 30 years ago e-Cigarette/Vaping Use: Never Used Use of substances other than those prescribed or required for medical reasons: No Currently Displaying Signs/Symptoms of Drug Intoxication Withdrawal: No Have you been hit, kicked, punched, or otherwise hurt by someone within the past year? If so, by whom?: No Do you feel safe in your current relationship?: No Current Relationship Is there a partner from a previous relationship who is making you feel unsafe now?: No Are you made to feel afraid or neglected: No Advance Directives: Yes Advance Directives on File: Yes Advance Directives Date on File: 08/17/14 Do you have a plan to hurt others: No Plan Recently lost weight without trying: No Nutrition Risks: No Nutritional Risk service: No Current occupational status: retired Cognitive needs: No Hearing needs: Yes Vision needs: No Meds Allergies Allergy/AdvReac Type Severity Reaction Status Date / Time No Known Allergies Allergy Verified 06/20/22 11:43 [No Known Allergies*] Home Medications Medication Instructions Recorded Confirmed Last Taken Type terazosin 10 mg capsule 1 cap BEDTIME 08/25/22 09/01/22 3 Weeks Ago History ~08/04/22 Physical Exam Vital Signs and Narrative: Vital Signs: Last Vital Signs Temp 98.8 F 09/01/22 13:25 Pulse 103 H 09/01/22 13:25 Resp 18 09/01/22 13:25 BP 148/101 H 09/01/22 13:25 Pulse Ox 95 09/01/22 13:25 O2 Del Method 09/01/22 13:25 BMI result Body Mass Index 27.7 Const: Other: Constitutional: Alert, in no distress, Mental Status: Oriented to person, place not Eyes: Pupils are equal, round and reactive to light. Ear, Nose and Throat: Oropharynx clear, mucous membranes moist. Ears and nose without deformities. Trachea midline. Respiratory: Clear to auscultation. No wheezing, rales or rhonchi. Cardiovascular: S1 S2 regular. No murmurs, rubs or gallops. Gastrointestinal: Abdomen soft, non-tender, non-distended. Normal bowel sounds.? Neurologic: Cranial nerves II-XII grossly intact. No focal neurological deficits, other. Moves all extremities spontaneously.? Skin: No rashes or lesions.? Musculoskeletal: No cyanosis or clubbing. Psychiatric: Normal mood and affect? Results Labs CBC and Chem 7: 09/01/22 14:40 09/01/22 14:40 Imaging Radiologist's Impressions: Impressions Chest X-Ray 09/01/22 14:50 IMPRESSION: Bronchial wall thickening may be infectious and/or inflammatory in etiology. Cervical Spine CT 09/01/22 15:49 IMPRESSION: 1. No acute intracranial pathology. 2. No CT evidence of acute cervical spine fracture or traumatic subluxation Head CT 09/01/22 15:49 IMPRESSION: 1. No acute intracranial pathology. 2. No CT evidence of acute cervical spine fracture or traumatic subluxation Assessment and Plan (1) Influenza A: Status: Acute (2) UTI (urinary tract infection): Status: Acute Plan 71 yo M with a PMH of BPH, for follicular lymphoma with bone marrow involvement, CVA with left leg weakness, hypertension, hyperlipidemia , recent hospitalization for UTI and still on Abx (Cefdinir) presents with AMS and found to have unresolved UTI and Influenza 1/Metabolic encephalopathy d/t UTI -treat underlying UTI 2/UTI --prior cultures have shown non resistant e coli -Ceftriaxone 3/ Influenza--no respiratory symptoms, but elderly so add tamiflu 4. HTN--resume BP meds tomorrow 5. BPH? finasteride 6. HLD--Lipitor 7. 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 Quality Stroke Does the patient have a stroke diagnosis?: No VTE Prior VTE?: No VTE Risk Level:: Medical - low VTE Device Contraindication: N/A - Device Ordered VTE Drug Contraindication: Treatment Not Tolerated
--- NOTE | 2022-09-01 19:08 | PC.NURSE ---
During the straight cath procedure , it was very difficult to advance and once in got blood return with urine.
[2022-09-01 19:36] VITALS: BP 158/93; PULSE 93; RESP 20; TEMP 37.8; O2SAT 98
--- NOTE | 2022-09-01 19:37 | PC.NURSE ---
assumed care of patient at 1900 - report received from Karine RN. patient resting comfortably on stretcher, receiving iv antibiotics and fluids. patient confused, alert and oriented to person only. vital signs updated. call zhang within reach. will continue to monitor.
[2022-09-01 21:25] VITALS: BP 165/93; PULSE 95; RESP 16; TEMP 36.8; O2SAT 96
[2022-09-01] MEDS: Doxazosin Mesylate 2 MG TABLET 8 MG PO (22:05)
[2022-09-01] MEDS: Metoprolol Tartrate 50 MG TABLET PO (22:05)
--- NOTE | 2022-09-01 22:38 | PC.NURSE ---
report given to Laine WRIGHT
[2022-09-01] MEDS: 0.9 % Sodium Chloride Flush 3 ML SYRINGE IVFLUSH (23:15)
[2022-09-01 23:33] VITALS: BP 122/76; PULSE 78; RESP 18; TEMP 37.4; O2SAT 96
[2022-09-02 03:43] VITALS: BP 91/63; PULSE 89; RESP 18; TEMP 36.8; O2SAT 95
[2022-09-02 04:01] VITALS: BP 118/72; PULSE 88; O2SAT 96
[2022-09-02 08:03] VITALS: BP 132/87; PULSE 107; RESP 18; TEMP 37.8; O2SAT 99
--- NOTE | 2022-09-02 09:01 | HO.PM.IMPN ---
Subjective Subjective Date of Service: 09/02/22 Physical Exam Vital Signs: Vital Signs: Last Vital Signs Temp 100.0 F 09/02/22 08:03 Pulse 107 H 09/02/22 08:03 Resp 18 09/02/22 08:03 BP 132/87 09/02/22 08:03 Pulse Ox 99 09/02/22 08:03 O2 Del Method 09/02/22 08:03 BMI result Body Mass Index 27.7 Objective Data Active Medications Acetaminophen (Acetaminophen 325 Mg Tablet) 650 mg PO Q6H PRN PRN Reason: Pain, Mild (Pain Scale 1-3) Atorvastatin Calcium (Atorvastatin Calcium 40 Mg Tablet) 40 mg PO DAILY [facility] Doxazosin Mesylate (Doxazosin Mesylate 2 Mg Tablet) 8 mg PO BEDTIME [facility] Last Admin: 09/01/22 22:05 Dose: 8 mg Documented By: WOODY Finasteride (Finasteride 5 Mg Tablet) 5 mg PO DAILY [facility] Ceftriaxone Sodium 1 gm/ (Sodium Chloride) 50 mls @ 100 mls/hr IV Q24H [facility] Melatonin (Melatonin 3 Mg Tablet) 6 mg PO BEDTIME PRN PRN Reason: Insomnia Metoprolol Tartrate (Metoprolol Tartrate 50 Mg Tablet) 50 mg PO BID [facility]; Protocol Last Admin: 09/01/22 22:05 Dose: 50 mg Documented By: WOODY Ondansetron HCl (Ondansetron Hcl 4 Mg/2 Ml Vial) 4 mg IVPUSH Q8H PRN PRN Reason: Nausea and Vomiting Oseltamivir Phosphate (Oseltamivir Phosphate 75 Mg Capsule) 75 mg PO Q12H [facility] Stop: 09/06/22 08:01 Sodium Chloride (0.9 % Sodium Chloride Flush 3 Ml Syringe) 3 ml IVFLUSH QSHIFT [facility] Last Admin: 09/01/22 23:15 Dose: 3 ml Documented By: FAUSTO Labs CBC & Chem 7: 09/01/22 14:40 09/01/22 14:40 Labs: Laboratory Results - last 24 hr 09/01/22 09/01/22 09/01/22 14:24 14:40 14:40 MCV 83.0 MCH 29.1 MCHC 35.1 RDW 14.3 Plt Count 76 L D MPV Not Reportable Immature Gran % (Auto) 0.4 Neut % (Auto) 89.4 H Lymph % (Auto) 4.1 L [place] % (Auto) 5.7 Eos % (Auto) 0.0 Baso % (Auto) 0.4 Lymph # (Auto) 0.2 L [place] # (Auto) 0.3 Eos # (Auto) 0.0 Baso # (Auto) 0.0 Abs Immat Gran (auto) 0.02 Absolute Neuts (auto) 4.4 Absolute Nucleated RBC 0.000 Nucleated RBC % (auto) 0.0 Smear Tech's Comments VERIFIED Anion Gap 15 Estim Creat Clear Calc 53.7 Estimated GFR > 60 Random Glucose 106 Lactic Acid Calcium 9.2 Magnesium 2.2 Total Bilirubin 1.2 H Direct Bilirubin 0.4 AST 23 ALT 32 Alkaline Phosphatase 116 Ammonia Troponin I High Sens B-Natriuretic Peptide Total Protein 6.9 Albumin 4.7 Urine Color Urine Appearance Urine pH Ur Specific [place] Urine Protein Urine Glucose (UA) Urine Ketones Urine Blood Urine Nitrite Ur Leukocyte Esterase Urine RBC Urine WBC Ur Squamous Epith Cells Urine Bacteria Hyaline Casts Influenza Type A (PCR) POSITIVE A Influenza Type B (PCR) NEGATIVE RSV RNA Qual (PCR) NEGATIVE SARS-CoV-2 RNA (RT-PCR) NEGATIVE 09/01/22 09/01/22 09/01/22 14:40 14:40 14:40 MCV MCH MCHC RDW Plt Count MPV Immature Gran % (Auto) Neut % (Auto) Lymph % (Auto) [place] % (Auto) Eos % (Auto) Baso % (Auto) Lymph # (Auto) [place] # (Auto) Eos # (Auto) Baso # (Auto) Abs Immat Gran (auto) Absolute Neuts (auto) Absolute Nucleated RBC Nucleated RBC % (auto) Smear Tech's Comments Anion Gap Estim Creat Clear Calc Estimated GFR Random Glucose Lactic Acid 1.0 Calcium Magnesium Total Bilirubin Direct Bilirubin AST ALT Alkaline Phosphatase Ammonia 18 Troponin I High Sens < 3.5 B-Natriuretic Peptide Total Protein Albumin Urine Color Urine Appearance Urine pH Ur Specific [place] Urine Protein Urine Glucose (UA) Urine Ketones Urine Blood Urine Nitrite Ur Leukocyte Esterase Urine RBC Urine WBC Ur Squamous Epith Cells Urine Bacteria Hyaline Casts Influenza Type A (PCR) Influenza Type B (PCR) RSV RNA Qual (PCR) SARS-CoV-2 RNA (RT-PCR) 09/01/22 09/01/22 14:40 15:50 MCV MCH MCHC RDW Plt Count MPV Immature Gran % (Auto) Neut % (Auto) Lymph % (Auto) [place] % (Auto) Eos % (Auto) Baso % (Auto) Lymph # (Auto) [place] # (Auto) Eos # (Auto) Baso # (Auto) Abs Immat Gran (auto) Absolute Neuts (auto) Absolute Nucleated RBC Nucleated RBC % (auto) Smear Tech's Comments Anion Gap Estim Creat Clear Calc Estimated GFR Random Glucose Lactic Acid Calcium Magnesium Total Bilirubin Direct Bilirubin AST ALT Alkaline Phosphatase Ammonia Troponin I High Sens B-Natriuretic Peptide 116 H Total Protein Albumin Urine Color Yellow Urine Appearance Clear Urine pH 5.5 Ur Specific [place] 1.015 Urine Protein Trace Urine Glucose (UA) Negative Urine Ketones 15 Urine Blood Large (3+) H Urine Nitrite Negative Ur Leukocyte Esterase Trace H Urine RBC >20 H Urine WBC 0-5 Ur Squamous Epith Cells 0-2 Urine Bacteria None Seen Hyaline Casts 0-2 Influenza Type A (PCR) Influenza Type B (PCR) RSV RNA Qual (PCR) SARS-CoV-2 RNA (RT-PCR) Assessment and Plan (1) UTI (urinary tract infection): Status: Acute Plan 71 yo M with a PMH of BPH, for follicular lymphoma with bone marrow involvement, CVA with left leg weakness, hypertension, hyperlipidemia , recent hospitalization for UTI and still on Abx (Cefdinir) presents with AMS and found to have unresolved UTI and Influenza 1/Metabolic encephalopathy d/t UTI--resolving -treat underlying UTI 2/UTI --prior cultures have shown non resistant e coli -Ceftriaxone D2 3/ Influenza--no respiratory symptoms, but elderly so add tamiflu for 5 days standard+droplet precautions 4. HTN--metoprolol 5. BPH? finasteride 6. HLD--Lipitor 7. 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 Quality Stroke Does the patient have a stroke diagnosis?: No VTE Prior VTE?: No VTE Risk Level:: Medical - low VTE Device Contraindication: N/A - Device Ordered VTE Drug Contraindication: Treatment Not Tolerated
[2022-09-02] MEDS: Metoprolol Tartrate 50 MG TABLET PO ×2 (09:40→19:42)
[2022-09-02] MEDS: 0.9 % Sodium Chloride Flush 3 ML SYRINGE IVFLUSH ×3 (09:40→19:43)
[2022-09-02] MEDS: Atorvastatin Calcium 40 MG TABLET PO (09:40)
[2022-09-02] MEDS: Finasteride 5 MG TABLET PO (09:41)
[2022-09-02] MEDS: Oseltamivir Phosphate 75 MG CAPSULE PO ×2 (09:41→19:42)
--- NOTE | 2022-09-02 09:48 | MHC.CM.PN ---
Interview conducted w/alternate HCP (Martha, daughter); primary HCP not answering phone. Patient lives w/son (primary HCP, Joseph). Owns walker, cane and WC; does not use any of the equipment w/exception of cane. Son is packaging operator SIGNAL TOWER OPERATOR, paid through [employer]. Martha indicates patient had in-home VNA prior to admit, however could not recall agency. She states that functionally, there is a concern for patient's safety at home at this time and would prefer for a physical therapy evaluation to obtain recommendation for ? SNF VS return home. If SNF is recommendation, she states patient said he has previously had a good experience at [facility]. Martha states if his plan is to return home w/services, patient's son would be transport. CM to follow.
[2022-09-02] MEDS: Acetaminophen 325 MG TABLET 650 MG PO ×2 (14:03→19:42)
[2022-09-02 15:26] VITALS: BP 108/67; PULSE 67; RESP 16; TEMP 36.4; O2SAT 94
[2022-09-02] MEDS: cefTRIAXone sodium 1 GM in 0.9 % Sodium Chloride 50 ML IV (16:58)
[2022-09-02 19:30] VITALS: BP 122/74; PULSE 95; RESP 18; TEMP 36.4; O2SAT 95
[2022-09-02] MEDS: Doxazosin Mesylate 2 MG TABLET 8 MG PO (19:43)
[2022-09-02] MEDS: Melatonin 3 MG TABLET 6 MG PO (19:43)
[2022-09-03 03:43] VITALS: BP 113/71; PULSE 65; RESP 13; TEMP 36.1; O2SAT 97
[2022-09-03 07:38] VITALS: BP 121/84; PULSE 68; RESP 17; TEMP 36.4; O2SAT 96
[2022-09-03] MEDS: Atorvastatin Calcium 40 MG TABLET PO (09:02)
[2022-09-03] MEDS: Oseltamivir Phosphate 75 MG CAPSULE PO (09:02)
[2022-09-03] MEDS: Finasteride 5 MG TABLET PO (09:03)
[2022-09-03] MEDS: 0.9 % Sodium Chloride Flush 3 ML SYRINGE IVFLUSH (09:03)
[2022-09-03] MEDS: Metoprolol Tartrate 50 MG TABLET PO (09:03)
--- NOTE | 2022-09-03 10:37 | PM.DS ---
DS: Providers Provider Date of Service: 09/03/22 Date of admission: 09/01/22 18:14 Primary care physician: Esthela Carrillo MD DS: Diagnosis Discharge Diagnosis (1) UTI (urinary tract infection): Status: Acute DS: Summary Hospital Course Hospital Course: Chief Complaint: weakness and confusion This is a 71 yo M with a PMH of BPH, for follicular lymphoma with bone marrow involvement, CVA with left leg weakness, hypertension, hyperlipidemia , recent? hospitalization for UTI and still on Abx? (Cefdinir). He lives with his son who brought him to be evluated for being confused for about 24 hours. AT baseline he is not all that coherent? and so not able to give any detail history.? Work up has revealed? influeza though not respiratory difficulty and no fever. UA show persistent UTI Hospital course 1/Metabolic encephalopathy d/t UTI--once underlying UTI was treated he is returned to his baseline mental status. 2/UTI --prior cultures have shown non resistant e coli, culture on this occasion is negative. He had recently been treated with cefdinir and will prescribe Ceftin for 7 more days 3/ Influenza--no respiratory symptoms, treated with Tamiflu and should complete 5 days of treatment 4. HTN--metoprolol 5. BPH? finasteride 6. HLD--Lipitor 7. Thrombocytopenia, chronic..Not due to sepsis, he has chronic thrombocytopenia likely d/t undiagnosed ITP, can follow hematology on outpatient basis Final diagnses Metabolic encephalopathy UTI Influenza a Thrombocytopenia Hypertension BPH h/o stroke Time Spent with Patient Time attestation: Total time managing care of this patient today ____ minutes. Discharge coordination time: Greater than 30 minutes Quality: Safe Use of Opioids Does Pt have an Active Cancer Diagnosis on the Problem List?: No Quality: Stroke Does the patient have a stroke diagnosis?: No Physical Exam Vital Signs: Vital Signs: Last Vital Signs Temp 97.6 F 09/03/22 07:38 Pulse 68 09/03/22 07:38 Resp 17 09/03/22 07:38 BP 121/84 09/03/22 07:38 Pulse Ox 96 09/03/22 07:38 O2 Del Method 09/03/22 07:38 BMI result Body Mass Index 27.7 Const: Other: General: AO X 3, no acute distress Resp: CTA bilateral CVS: S1,S2,RRR GI: +BS, NT, no distention Skin: No rash Neuro: motor grossly intact Psych: appropriate affect DS: Data Data Completed and Pending Labs on day of discharge: Preliminary micro results at discharge 09/01/22 14:40 Blood Culture - Preliminary Blood - Venous No growth after 24 hours. 09/01/22 14:40 Blood Culture - Preliminary Blood - Venous No growth after 24 hours. Discharge Plan Discharge Anticipated Discharge Date/Time: 09/03/22 10:35 Patient Disposition: Home, Self-Care Discharge Diagnosis: UTI, encephalopathy, influenza Referrals: Esthela Carrillo MD [Primary Care Provider] - 1 Week Discharge Medications: New oseltamivir [Tamiflu] 75 mg Capsule 75 mg PO Q12H Qty: 6 0RF cefuroxime axetil 250 mg tablet 250 mg PO BID 7 Days Qty: 14 0RF Continued (DME) Depend Underwear For Men Cosmo- Misc See Rx Instructions .MEDSUPPLY Qty: 64 11RF Rx Instructions: As directed-size sm/med (DME) Washable bed pad Medium See Rx Instructions .Route .MEDSUPPLY Qty: 10 0RF Rx Instructions: As directed metoprolol tartrate 50 mg tablet 50 mg PO BID Qty: 180 3RF finasteride 5 mg tablet 5 mg PO DAILY 90 Days Qty: 90 0RF atorvastatin 40 mg tablet 40 mg PO DAILY Qty: 90 3RF terazosin 10 mg capsule 1 cap BEDTIME Discontinued cefdinir 300 mg capsule 300 mg PO BID Qty: 10 0RF Discharge Orders: Discharge Order (Routine); Ordered 09/03/22 Ordered By: Benedict Blanc Diet: Advance to usual diet Activity on Discharge: As tolerated Stand Alone Forms: Patient Portal Discharge page Care Plan Goals: Full recovery from UTI, encephalopathy and influenza. Health Concerns: Influenza, encephalopathy, UTI. Plan of Treatment: Take Ceftin as recommended for UTI. Take Tamiflu as recommended for influenza Follow-up with your primary care doctor within a week, call for appointment. Assessment: As above
--- NOTE | 2022-09-03 12:01 | MHC.CM.PN ---
PT IS CLEARED TO DC TODAY CM CALLED PTS SON, FLOYD [phone] WHO REPORTS HE WOULD LIKE THE PT TO DC HOME WITH RESUMPTION OF SERVICES PROVIDED BY [facility], THEY ARE PROVIDING SN, PT AND OT PTS SON WILL PICK HIM UP AT 1300 HOURS
== END 2022-09-03 13:42 | disposition home health service (06) | DRG 193 ==
LOC: HO.ED 17:31 → HO.EDOVER 18:26 → HO.S3 22:18
PROVIDERS: Physician Assistant; Admitting Provider Internal Medicine; Emergency Provider Emergency Medicine Emergency Medical Services; PCP Internal Medicine; Visit Provider Internal Medicine
DX: J10.1 Influenza due to other identified influenza virus with other respiratory manifestations (principal); G93.41 Metabolic encephalopathy; D69.3 Immune thrombocytopenic purpura; E78.5 Hyperlipidemia, unspecified; N40.0 Benign prostatic hyperplasia without lower urinary tract symptoms; Z20.822 Contact with and (suspected) exposure to COVID-19; Z86.73 Personal history of transient ischemic attack (TIA), and cerebral infarction without residual deficits; Z87.440 Personal history of urinary (tract) infections; Z79.899 Other long term (current) drug therapy
CPT/HCPCS: 0241U; 70450; 71045; 72125; 80048; 80076; 81001; 81003; 82140; 83605; 83735; 83880; 84484; 85025; 87040; 93005; 99285; J0696

== ENCOUNTER 2022-10-11 11:01 | Outpatient (REF) | payer MEDICARE, MEDICAID, SELFPAY | END 2022-10-11 11:02 | disposition home or self-care (01) | LOC: HO.LAB 11:01 | PROVIDERS: PCP Internal Medicine; Visit Provider Urology | DX: Z12.5 Encounter for screening for malignant neoplasm of prostate (principal); N39.0 Urinary tract infection, site not specified; C61 Malignant neoplasm of prostate; R32 Unspecified urinary incontinence | CPT/HCPCS: 36415; 84153; 84154; 87086; 87088; 87186; 99212 ==

== ENCOUNTER 2022-10-11 12:31 | Outpatient (REF) | payer MEDICARE, MEDICAID, SELFPAY ==
[2022-10-11 14:45] LABS: PSA,Total (Free>4and<10) 4.58 ng/mL (0.00-4.00)
[2022-10-12 11:09] LABS: Free Prostate Spec Ag 1.2 ng/mL; Percent Free Prostate Spec Ag 24 % (calc) (>25); Prostate Specific Ag Total 5.1 ng/mL (< OR = 4.0)
== END 2022-10-11 12:32 | disposition home or self-care (01) ==
LOC: HO.10HDL 12:31
PROVIDERS: Visit Provider Urology
DX: Z13.89 Encounter for screening for other disorder (principal)
CPT/HCPCS: 36415; 84153; 84154

== ENCOUNTER 2022-11-14 21:37 | Inpatient (IN) | payer MEDICARE, MEDICAID, SELFPAY ==
[2022-11-14 21:48] VITALS: BP 172/90; BP 184/94; PULSE 66; PULSE 82; RESP 16; TEMP 37.3; O2SAT 97; O2SAT 98; BMI 24.2
--- NOTE | 2022-11-14 21:53 | ECG_ITS ---
Test Reason : weakness Blood Pressure : / mmHG Vent. Rate : 067 BPM Atrial Rate : 067 BPM P-R Int : 176 ms QRS Dur : 076 ms QT Int : 398 ms P-R-T Axes : 047 -12 -72 degrees QTc Int : 420 ms Artifact in tracing Normal sinus rhythm Left ventricular hypertrophy with repolarization abnormality ( R in aVL ) Abnormal ECG No previous ECGs available Referred By: Kiara Hernandez Electronically Signed By:DOUG MARIEE
[2022-11-14 22:47] LABS: COVID-19 Test Negative (Negative); IDNOW Serial# 55D5AD1C; IDNOW Serial# 6674DD1D; Influenza A Negative (Negative); Influenza B2 Negative (Negative)
--- NOTE | 2022-11-14 22:47 | PC.NURSE ---
this rn assumed care of pt @ 2144. pt placed on color television console monitor ekg obtained this rn and website/blog editor attempted iv and blood draw x2 each. dr carroll made aware of pt status and pt being a tough stick. dr carroll placed iv utilized US. bloodwork obtained and sent down to lab at this time
[2022-11-14 22:53] LABS: Basophils Percent Auto 0.2 % (0-2); Eosinophils Percent Auto 0.4 % (0-4); Hemoglobin 14.9 g/dl (14.0-18.0); Imm Gran Abs Auto 0.01 X10*3/uL (0.00-0.03); Imm Gran Pct Auto 0.2 % (0.0-0.4); PLT CLUMP 1; Red Cell Distribution Width 14.4 % (11.0-16.0); SCAN SMEAR FLAG 1
[2022-11-14 22:55] LABS: Hematocrit 43.4 % (42.0-52.0); Lymphocytes Absolute Auto 0.5 X10*3/uL (1.2-4.9); Lymphocytes Percent Auto 11.8 % (20-40); Mean Corpuscular HGB Conc 34.3 g/dl (31.0-36.0); Mean Corpuscular Hemoglobin 28.5 pg (27.0-33.0); Mean Platelet Volume 9.9 fL (9.4-12.4); Monocytes Absolute Auto 0.3 X10*3/uL (0.1-1.2); Monocytes Percent Auto 7.2 % (2-11); Neutrophils Absolute Auto 3.7 x10*3/uL (2.0-8.3); Neutrophils Percent Auto 80.2 % (45-73); Red Blood Count 5.23 X10*6/uL (4.60-5.80)
[2022-11-14 22:59] LABS: INTERNATIONAL NORM RATIO 1.1 (0.9-1.1); Prothrombin Time 12.5 SEC (10.0-13.1)
[2022-11-14 23:08] LABS: Alanine Aminotransferase 13 U/L (0-40); Albumin Level 4.4 g/dL (3.5-5.0); Alkaline Phosphatase 112 U/L (39-117); Anion Gap 14 (12-20); Aspartate Amino Transferase 21 U/L (5-37); Bilirubin Total 2.1 mg/dL (0.0-1.0); Blood Urea Nitrogen 13 mg/dL (9-16); Calcium 8.8 mg/dL (8.4-10.2); Carbon Dioxide 25 mmol/L (22-29); Chloride 106 mmol/L (96-108); Creatinine Clr Calc Pharmacy 57.5; Estimated Glomerular Filt Rate > 60; Glucose Random 93 mg/dL (60-115); MANUAL DIFF FLAG NO; Platelet Count 110 X10*3/uL (160-400); Potassium 3.7 mmol/L (3.3-5.1); Sodium 141 mmol/L (135-145); Total Protein 6.3 g/dL (6.5-8.0); White Blood Count 4.6 X10*3/uL (4.8-10.8)
[2022-11-14 23:14] LABS: B Type Natriuretic Peptide 58 pg/mL (<100)
[2022-11-14 23:16] LABS: Troponin-I High Sensitivity 3.6 ng/L (<3.5-35.0)
--- NOTE | 2022-11-14 23:17 | ED_ITS ---
HPI - Weakness General Chief complaint: Weakness Stated complaint: Weakness Time Seen by Provider: 11/14/22 21:52 Source: patient, family and EMS Mode of arrival: EMS History of Present Illness HPI Narrative: 72-year-old male who arrives via EMS, he lives with his son who states that patient is often times we can confused with urinary tract in back shins. Patient does have baseline dementia. Patient denies any current shortness of breath/chest pain/palpitations and denies any nausea, vomiting and denies any urinary symptoms. Related Data Previous Rx's Medication Instructions Recorded Depend Underwear For Men Alexy #64 ea 12/01/21 (diaper,brief,adult,disposable) Washable bed pad #10 ea 12/01/21 metoprolol tartrate 50 mg tablet 50 mg PO BID #180 tabs 12/04/21 atorvastatin 40 mg tablet 40 mg PO DAILY #90 tabs 08/23/22 finasteride 5 mg tablet 5 mg PO DAILY 90 days #90 tabs 10/11/22 methenamine hippurate 1 gram tablet 1 g PO daily 90 days #90 tabs 10/11/22 mirabegron 25 mg tablet,extended 25 mg PO DAILY 30 days #30 tabs 10/11/22 release 24 hr cefuroxime axetil 500 mg tablet 500 mg PO Q12H #2 tabs 11/19/22 Allergies Allergy/AdvReac Type Severity Reaction Status Date / Time No Known Allergies Allergy Verified 11/15/22 07:25 [No Known Allergies*] Review of Systems Review of Systems: Pertinent positives and negatives as stated in HPI PMFSH Past Medical History Source: nursing notes reviewed Medical History Abnormal computed tomography angiography (CTA) Annual physical exam BPH (benign prostatic hyperplasia) CVA (cerebral vascular accident) Dementia Follicular lymphoma Hearing loss History of CVA (cerebrovascular accident) HTN (hypertension) Hyperglycemia Hyperlipidemia Hypertension Lumbar spinal stenosis Recurrent UTI Syncope Surgical History H/O colonoscopy Family History Family History Father Colon cancer HTN (hypertension) Brother Non-Hodgkin lymphoma HTN (hypertension) Sister HTN (hypertension) Mother HTN (hypertension) TIA (transient ischemic attack) Social History Social History (System 11/15/22 @ 07:25 by Shirley Mena) Household Members: Children Household Members Other:: He mentioned 2 dogs and a person, but not answering now. Housing: Unknown / Unable to assess Housing Other:: Unsure if this is correct. Are you a primary outdoor emergency care technician to a significant other at home: No Do you presently have visiting nurse or other home services: Yes Unable to assess alcohol history related to: Unknown Alcohol intake: former Patient Tobacco Use Status: Never used Tobacco e-Cigarette/Vaping Use: Never Used Use of substances other than those prescribed or required for medical reasons: Unknown Currently Displaying Signs/Symptoms of Drug Intoxication Withdrawal: No Advance Directives: No Advance Directives Information Provided: No Advance Directives Date on File: 08/17/14 Do you have thoughts of harming others: None Do you have a plan to hurt others: No Plan Recently lost weight without trying: Unsure Nutrition Risks: No Nutritional Risk service: No Current occupational status: retired Cognitive needs: No Hearing needs: Yes Vision needs: No Physical Exam Vital Signs: Vital Signs: Last Vital Signs Temp 97.3 F 11/19/22 08:00 Pulse 68 11/19/22 08:00 Resp 18 11/19/22 08:00 BP 145/70 H 11/19/22 08:00 Pulse Ox 98 11/19/22 08:00 O2 Del Method 11/19/22 08:00 BMI result Body Mass Index 24.2 VITAL SIGNS: Reviewed. GENERAL: Well developed, well nourished, in no acute distress. HEAD: Normocephalic/atraumatic EYES: PERRLA, EOMI LUNGS: Normal breath sounds. No adventitious sounds or accessory muscle use. SpO2<97> CARDIOVASCULAR: Regular rate and rhythm without noted murmurs, no JVD or lower extremity edema. ABDOMEN: Soft, non-tender, non-distended with bowel sounds. MUSCULOSKELETAL: No tenderness, deformities, or effusions noted on gross inspection. EXTREMITIES: No cyanosis, clubbing or edema. SKIN: Inspection of the skin reveals no rashes NEUROLOGIC: Alert and strength and sensation to light touch were grossly intact x 4. Medications Administered Discontinued Medications Generic Name Dose Route Start Last Admin Trade Name Freq PRN Reason Stop Dose Admin Acetaminophen 650 mg 11/14/22 23:18 11/14/22 23:46 Acetaminophen Supp 650 Mg Supp.Rect IA 11/14/22 23:19 650 mg ONCE ONE Administration Acetaminophen 650 mg 11/15/22 05:00 11/16/22 16:18 Acetaminophen 325 Mg Tablet PO 650 mg Q6H PRN Administration Pain, Mild (Pain Scale 1-3) Atorvastatin Calcium 40 mg 11/16/22 09:00 11/19/22 08:48 Atorvastatin Calcium 40 Mg Tablet PO 40 mg DAILY DEONDRE Administration Finasteride 5 mg 11/15/22 09:00 11/19/22 08:48 Finasteride 5 Mg Tablet PO 5 mg DAILY DEONDRE Administration Haloperidol 5 mg 11/15/22 22:45 11/16/22 05:38 Haloperidol 5 Mg Tablet PO 11/15/22 22:46 Not Given ONCE ONE Haloperidol Lactate 5 mg 11/17/22 21:56 11/18/22 06:17 Haloperidol Lactate 5 Mg/Ml Vial IM 11/17/22 21:57 5 mg ONCE ONE Administration Heparin Sodium (Porcine) 5,000 unit 11/15/22 06:00 11/19/22 05:55 Heparin Sodium,Porcine 5,000 Unit/Ml Vial SUBCUT 5,000 unit Q12H DEONDRE Administration Ceftriaxone Sodium 1 gm/ 50 mls @ 100 mls/hr 11/15/22 00:57 11/15/22 01:40 Sodium Chloride IV 11/15/22 01:26 Infused ONCE ONE Infusion Ceftriaxone Sodium 1 gm/ 50 mls @ 100 mls/hr 11/15/22 22:00 11/18/22 20:39 Sodium Chloride IV Infused Q24H DEONDRE Infusion Lorazepam 1 mg 11/17/22 18:24 11/17/22 18:40 Lorazepam 2 Mg/Ml Vial IVPUSH 11/17/22 18:25 1 mg STAT STA Administration Metoprolol Tartrate 50 mg 11/15/22 09:00 11/19/22 08:48 Metoprolol Tartrate 50 Mg Tablet PO 50 mg BID DEONDRE Administration Protocol Mirabegron 25 mg 11/15/22 09:00 11/19/22 08:47 Mirabegron 25 Mg Tab.Er.24h PO 25 mg DAILY DEONDRE Administration Sodium Chloride 3 ml 11/15/22 08:00 11/19/22 07:27 0.9 % Sodium Chloride Flush 3 Ml Syringe IVFLUSH Not Given QSHIFT [facility] Medical Decision Making Medical Decision Making MDM Narrative: This chart is a down time completion. 2320: 72-year-old male who otherwise appears well, will workup for any evidence of infection although he is answering questions well. I reviewed all investigations and patient has sepsis with UTI, received antibiotics at 00:45, fluids and is otherwise hemodynamically stable. 0315: I discussed the case with the hospitalist who accepts admission. Differential Diagnosis Differential Diagnoses: The differential diagnosis associated with the presentation includes Please see the discussion above Consult Healthcare Provider Please see the discussion above Lab Data Please see the discussion above 11/14/22 22:45 11/14/22 22:45 Labs: Lab Results 11/14/22 11/14/22 11/14/22 Range/Units 22:21 22:21 22:45 WBC 4.6 L (4.8-10.8) X10*3/uL RBC 5.23 (4.60-5.80) X10*6/uL Hgb 14.9 (14.0-18.0) g/dl Hct 43.4 (42.0-52.0) % MCV 83.0 (80.0-98.0) fL MCH 28.5 (27.0-33.0) pg MCHC 34.3 (31.0-36.0) g/dl RDW 14.4 (11.0-16.0) % Plt Count 110 L (160-400) X10*3/uL MPV 9.9 (9.4-12.4) fL Immature Gran % (Auto) 0.2 (0.0-0.4) % Neut % (Auto) 80.2 H (45-73) % Lymph % (Auto) 11.8 L (20-40) % [place] % (Auto) 7.2 (2-11) % Eos % (Auto) 0.4 (0-4) % Baso % (Auto) 0.2 (0-2) % Lymph # (Auto) 0.5 L (1.2-4.9) X10*3/uL [place] # (Auto) 0.3 (0.1-1.2) X10*3/uL Eos # (Auto) 0.0 (0.0-0.4) X10*3/uL Baso # (Auto) 0.0 (0.0-0.2) X10*3/uL Abs Immat Gran (auto) 0.01 (0.00-0.03) X10*3/uL Absolute Neuts (auto) 3.7 (2.0-8.3) x10*3/uL Absolute Nucleated RBC 0.000 (0.0-0.012) X10*3/uL Nucleated RBC % (auto) 0.0 (0.0-0.2) /100WBC PT (10.0-13.1) SEC INR (0.9-1.1) Sodium (135-145) mmol/L Potassium (3.3-5.1) mmol/L Chloride (96-108) mmol/L Carbon Dioxide (22-29) mmol/L Anion Gap (12-20) BUN (9-16) mg/dL Creatinine (0.5-1.4) mg/dL Estim Creat Clear Calc Estimated GFR POC Glucose (60-115) mg/dL Random Glucose (60-115) mg/dL Lactic Acid (0.5-2.0) mmol/L Calcium (8.4-10.2) mg/dL Total Bilirubin (0.0-1.0) mg/dL AST (5-37) U/L ALT (0-40) U/L Alkaline Phosphatase (39-117) U/L Troponin I High Sens (<3.5-35.0) ng/L B-Natriuretic Peptide (<100) pg/mL Total Protein (6.5-8.0) g/dL Albumin (3.5-5.0) g/dL Urine Color Urine Appearance Urine pH (5.0-9.0) Ur Specific [place] (1.005-1.025) Urine Protein (Neg-Trace) mg/dL Urine Glucose (UA) (Negative) mg/dL Urine Ketones (Negative) mg/dL Urine Blood (Negative) Urine Nitrite (Negative) Ur Leukocyte Esterase (Negative) Urine RBC (0-2) /HPF Urine WBC (0-5) /HPF Ur Squamous Epith Cells (0-2) /HPF Urine Bacteria (None Seen) Hyaline Casts (0-2) /LPF COVID-19 (JAMAL) Negative (Negative) COVID-19 Clin Com See Note Influenza Type A (DANDY) Negative (Negative) Influenza Type B (DANDY) Negative (Negative) Influenza A & B Note See Note 11/14/22 11/14/22 11/14/22 Range/Units 22:45 22:45 22:45 WBC (4.8-10.8) X10*3/uL RBC (4.60-5.80) X10*6/uL Hgb (14.0-18.0) g/dl Hct (42.0-52.0) % MCV (80.0-98.0) fL MCH (27.0-33.0) pg MCHC (31.0-36.0) g/dl RDW (11.0-16.0) % Plt Count (160-400) X10*3/uL MPV (9.4-12.4) fL Immature Gran % (Auto) (0.0-0.4) % Neut % (Auto) (45-73) % Lymph % (Auto) (20-40) % [place] % (Auto) (2-11) % Eos % (Auto) (0-4) % Baso % (Auto) (0-2) % Lymph # (Auto) (1.2-4.9) X10*3/uL [place] # (Auto) (0.1-1.2) X10*3/uL Eos # (Auto) (0.0-0.4) X10*3/uL Baso # (Auto) (0.0-0.2) X10*3/uL Abs Immat Gran (auto) (0.00-0.03) X10*3/uL Absolute Neuts (auto) (2.0-8.3) x10*3/uL Absolute Nucleated RBC (0.0-0.012) X10*3/uL Nucleated RBC % (auto) (0.0-0.2) /100WBC PT 12.5 (10.0-13.1) SEC INR 1.1 (0.9-1.1) Sodium 141 (135-145) mmol/L Potassium 3.7 (3.3-5.1) mmol/L Chloride 106 (96-108) mmol/L Carbon Dioxide 25 (22-29) mmol/L Anion Gap 14 (12-20) BUN 13 (9-16) mg/dL Creatinine 1.18 (0.5-1.4) mg/dL Estim Creat Clear Calc 57.5 Estimated GFR > 60 POC Glucose (60-115) mg/dL Random Glucose 93 (60-115) mg/dL Lactic Acid (0.5-2.0) mmol/L Calcium 8.8 D (8.4-10.2) mg/dL Total Bilirubin 2.1 H (0.0-1.0) mg/dL AST 21 (5-37) U/L ALT 13 (0-40) U/L Alkaline Phosphatase 112 (39-117) U/L Troponin I High Sens (<3.5-35.0) ng/L B-Natriuretic Peptide 58 (<100) pg/mL Total Protein 6.3 L (6.5-8.0) g/dL Albumin 4.4 (3.5-5.0) g/dL Urine Color Urine Appearance Urine pH (5.0-9.0) Ur Specific [place] (1.005-1.025) Urine Protein (Neg-Trace) mg/dL Urine Glucose (UA) (Negative) mg/dL Urine Ketones (Negative) mg/dL Urine Blood (Negative) Urine Nitrite (Negative) Ur Leukocyte Esterase (Negative) Urine RBC (0-2) /HPF Urine WBC (0-5) /HPF Ur Squamous Epith Cells (0-2) /HPF Urine Bacteria (None Seen) Hyaline Casts (0-2) /LPF COVID-19 (JAMAL) (Negative) COVID-19 Clin Com Influenza Type A (DANDY) (Negative) Influenza Type B (DANDY) (Negative) Influenza A & B Note 11/14/22 11/14/22 11/15/22 Range/Units 22:45 23:27 00:59 WBC (4.8-10.8) X10*3/uL RBC (4.60-5.80) X10*6/uL Hgb (14.0-18.0) g/dl Hct (42.0-52.0) % MCV (80.0-98.0) fL MCH (27.0-33.0) pg MCHC (31.0-36.0) g/dl RDW (11.0-16.0) % Plt Count (160-400) X10*3/uL MPV (9.4-12.4) fL Immature Gran % (Auto) (0.0-0.4) % Neut % (Auto) (45-73) % Lymph % (Auto) (20-40) % [place] % (Auto) (2-11) % Eos % (Auto) (0-4) % Baso % (Auto) (0-2) % Lymph # (Auto) (1.2-4.9) X10*3/uL [place] # (Auto) (0.1-1.2) X10*3/uL Eos # (Auto) (0.0-0.4) X10*3/uL Baso # (Auto) (0.0-0.2) X10*3/uL Abs Immat Gran (auto) (0.00-0.03) X10*3/uL Absolute Neuts (auto) (2.0-8.3) x10*3/uL Absolute Nucleated RBC (0.0-0.012) X10*3/uL Nucleated RBC % (auto) (0.0-0.2) /100WBC PT (10.0-13.1) SEC INR (0.9-1.1) Sodium (135-145) mmol/L Potassium (3.3-5.1) mmol/L Chloride (96-108) mmol/L Carbon Dioxide (22-29) mmol/L Anion Gap (12-20) BUN (9-16) mg/dL Creatinine (0.5-1.4) mg/dL Estim Creat Clear Calc Estimated GFR POC Glucose (60-115) mg/dL Random Glucose (60-115) mg/dL Lactic Acid 1.0 (0.5-2.0) mmol/L Calcium (8.4-10.2) mg/dL Total Bilirubin (0.0-1.0) mg/dL AST (5-37) U/L ALT (0-40) U/L Alkaline Phosphatase (39-117) U/L Troponin I High Sens 3.6 (<3.5-35.0) ng/L B-Natriuretic Peptide (<100) pg/mL Total Protein (6.5-8.0) g/dL Albumin (3.5-5.0) g/dL Urine Color Yellow Urine Appearance Cloudy Urine pH 6.0 (5.0-9.0) Ur Specific [place] 1.020 (1.005-1.025) Urine Protein Trace (Neg-Trace) mg/dL Urine Glucose (UA) Negative (Negative) mg/dL Urine Ketones Negative (Negative) mg/dL Urine Blood Small (1+) H (Negative) Urine Nitrite Positive H (Negative) Ur Leukocyte Esterase Large (3+) H (Negative) Urine RBC 0-2 (0-2) /HPF Urine WBC >50 H (0-5) /HPF Ur Squamous Epith Cells 0-2 (0-2) /HPF Urine Bacteria 4+ (None Seen) Hyaline Casts 0-2 (0-2) /LPF COVID-19 (JAMAL) (Negative) COVID-19 Clin Com Influenza Type A (DANDY) (Negative) Influenza Type B (DANDY) (Negative) Influenza A & B Note 11/15/22 11/15/22 11/17/22 Range/Units 06:40 06:40 16:15 WBC 4.3 L (4.8-10.8) X10*3/uL RBC 5.24 (4.60-5.80) X10*6/uL Hgb 15.2 (14.0-18.0) g/dl Hct 44.0 (42.0-52.0) % MCV 84.0 (80.0-98.0) fL MCH 29.0 (27.0-33.0) pg MCHC 34.5 (31.0-36.0) g/dl RDW 14.5 (11.0-16.0) % Plt Count 113 L (160-400) X10*3/uL MPV 10.6 (9.4-12.4) fL Immature Gran % (Auto) 0.2 (0.0-0.4) % Neut % (Auto) 62.7 (45-73) % Lymph % (Auto) 23.1 (20-40) % [place] % (Auto) 12.6 H (2-11) % Eos % (Auto) 0.9 (0-4) % Baso % (Auto) 0.5 (0-2) % Lymph # (Auto) 1.0 L (1.2-4.9) X10*3/uL [place] # (Auto) 0.5 (0.1-1.2) X10*3/uL Eos # (Auto) 0.0 (0.0-0.4) X10*3/uL Baso # (Auto) 0.0 (0.0-0.2) X10*3/uL Abs Immat Gran (auto) 0.01 (0.00-0.03) X10*3/uL Absolute Neuts (auto) 2.7 (2.0-8.3) x10*3/uL Absolute Nucleated RBC 0.000 (0.0-0.012) X10*3/uL Nucleated RBC % (auto) 0.0 (0.0-0.2) /100WBC PT (10.0-13.1) SEC INR (0.9-1.1) Sodium 143 (135-145) mmol/L Potassium 3.4 (3.3-5.1) mmol/L Chloride 106 (96-108) mmol/L Carbon Dioxide 26 (22-29) mmol/L Anion Gap 14 (12-20) BUN 14 (9-16) mg/dL Creatinine 1.23 (0.5-1.4) mg/dL Estim Creat Clear Calc 55.2 Estimated GFR 58 POC Glucose 118 H (60-115) mg/dL Random Glucose 92 (60-115) mg/dL Lactic Acid (0.5-2.0) mmol/L Calcium 8.8 (8.4-10.2) mg/dL Total Bilirubin (0.0-1.0) mg/dL AST (5-37) U/L ALT (0-40) U/L Alkaline Phosphatase (39-117) U/L Troponin I High Sens (<3.5-35.0) ng/L B-Natriuretic Peptide (<100) pg/mL Total Protein (6.5-8.0) g/dL Albumin (3.5-5.0) g/dL Urine Color Urine Appearance Urine pH (5.0-9.0) Ur Specific [place] (1.005-1.025) Urine Protein (Neg-Trace) mg/dL Urine Glucose (UA) (Negative) mg/dL Urine Ketones (Negative) mg/dL Urine Blood (Negative) Urine Nitrite (Negative) Ur Leukocyte Esterase (Negative) Urine RBC (0-2) /HPF Urine WBC (0-5) /HPF Ur Squamous Epith Cells (0-2) /HPF Urine Bacteria (None Seen) Hyaline Casts (0-2) /LPF COVID-19 (JAMAL) (Negative) COVID-19 Clin Com Influenza Type A (DANDY) (Negative) Influenza Type B (DANDY) (Negative) Influenza A & B Note External Record Review External record reviewed: Outpatient record and Prior outpatient labs Chronic Conditions Patient?s care impacted by: Hypertension Procedures EJ/Peripheral Line Arm R: Time Out Performed: No Skin Cleansed in Sterile Fashion: Yes Size (gauge): 18 IV Secured and Dressing Applied: Yes Patient Tolerated Procedure: well and no complications Additional Comments: Ultrasound-guided Critical Care Time Critical Care Time Critical Care Time: Yes Total Critical Care Time: 30 Attestation: I personally attest to this time spent taking care of the patient. Discharge Plan Discharge Clinical Impression: Urinary tract infection, Sepsis Patient Disposition: Admitted As Inpatient Interventions: Admission Worksheet (ED) Last Done: 11/15/22 16:40 Discharge Date/Time: 11/15/22 16:40
[2022-11-14 23:22] VITALS: PULSE 71; TEMP 38.8
--- NOTE | 2022-11-14 23:33 | PC.NURSE ---
this rn and needle loom operator changed pt due to incontinence. this rn noticed pt felt warm. rectal temperature obtained. 101.9f dr carroll made aware of this at this time. blood cultures and LA obtained by this rn and sent down to lab. awaiting orders from
[2022-11-14] MEDS: Acetaminophen Supp 650 MG SUPP.RECT PR (23:46)
--- NOTE | 2022-11-14 23:48 | PC.NURSE ---
this rn and imaging scheduler place [place] catheter in place pt tolerated well. pt medicated according to nov. tylenol rectally given pt tolerated well
[2022-11-15] MEDS: cefTRIAXone sodium 1 GM in 0.9 % Sodium Chloride 50 ML IV ×2 (01:07→19:37)
[2022-11-15 01:17] LABS: Appearance Urine Cloudy; Color Urine Yellow; Glucose Urine UA Negative (Negative); Leukocyte Esterase Urine Large (3+) (Negative); Nitrite Urine Positive (Negative); UMIC TRIGGER UACC YES; Urine Blood Small (1+) (Negative); Urine Ketones Negative (Negative); Urine Protein Trace mg/dL (Neg-Trace)
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
[2022-11-15 05:05] VITALS: BP 131/81; PULSE 69; RESP 17; TEMP 36.4; O2SAT 100
--- NOTE | 2022-11-15 05:12 | MHC.EDTECH ---
[place] cath was applied , pt is incontinent, vitals were taken . a sandwich and pudding and drink was given, pt is now resting
[2022-11-15 05:37] LABS: RBC Urine 0-2 /HPF (0-2); Squamous Epithelial Cell Urine 0-2 /HPF (0-2); UACC Culture Trigger YES; WBC Urine >50 /HPF (0-5)
--- NOTE | 2022-11-15 05:37 | MHC.EDTECH ---
pt took off [place] cath , a new one was reapplied, a reminder that it was there to help him not be incontinent, he said ok, he fell asleep
[2022-11-15 05:38] LABS: Bacteria Urine 4+ (None Seen); Hyaline Casts Urine 0-2 /LPF (0-2)
[2022-11-15] MEDS: Heparin Sodium,Porcine 5,000 UNIT/ML VIAL 5000 UNIT SUBCUT ×2 (06:37→19:38)
[2022-11-15 07:04] LABS: MANUAL DIFF FLAG NO
[2022-11-15 07:07] LABS: Basophils Percent Auto 0.5 % (0-2); Eosinophils Percent Auto 0.9 % (0-4); Hemoglobin 15.2 g/dl (14.0-18.0); Imm Gran Abs Auto 0.01 X10*3/uL (0.00-0.03); Imm Gran Pct Auto 0.2 % (0.0-0.4); Lymphocytes Percent Auto 23.1 % (20-40); Mean Corpuscular HGB Conc 34.5 g/dl (31.0-36.0); Mean Platelet Volume 10.6 fL (9.4-12.4); Monocytes Absolute Auto 0.5 X10*3/uL (0.1-1.2); Monocytes Percent Auto 12.6 % (2-11); Neutrophils Absolute Auto 2.7 x10*3/uL (2.0-8.3); Neutrophils Percent Auto 62.7 % (45-73); Platelet Count 113 X10*3/uL (160-400); Red Blood Count 5.24 X10*6/uL (4.60-5.80); Red Cell Distribution Width 14.5 % (11.0-16.0); White Blood Count 4.3 X10*3/uL (4.8-10.8)
[2022-11-15 07:22] VITALS: BP 153/92; PULSE 80; RESP 17; TEMP 36.8; O2SAT 96
[2022-11-15 07:35] LABS: Anion Gap 14 (12-20); Blood Urea Nitrogen 14 mg/dL (9-16); Calcium 8.8 mg/dL (8.4-10.2); Carbon Dioxide 26 mmol/L (22-29); Chloride 106 mmol/L (96-108); Creatinine Clr Calc Pharmacy 55.2; Estimated Glomerular Filt Rate 58; Glucose Random 92 mg/dL (60-115); Potassium 3.4 mmol/L (3.3-5.1); Sodium 143 mmol/L (135-145)
--- NOTE | 2022-11-15 08:56 | PHA.MEDREC ---
Pharmacy Consult ? Medication Reconciliation Pharmacy has completed the medication reconciliation. Patient does not know what medications he takes. Med rec completed by claim history. Kerrie Pham, AbhishekD
[2022-11-15] MEDS: 0.9 % Sodium Chloride Flush 3 ML SYRINGE IVFLUSH ×3 (09:24→23:42)
[2022-11-15] MEDS: Metoprolol Tartrate 50 MG TABLET PO ×2 (09:24→19:38)
[2022-11-15] MEDS: Finasteride 5 MG TABLET PO (09:25)
[2022-11-15] MEDS: Mirabegron 25 MG TAB.ER.24H PO (10:24)
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
[2022-11-15 15:40] VITALS: BP 141/84; PULSE 67; RESP 14; TEMP 36.7; O2SAT 95
--- NOTE | 2022-11-15 16:47 | PC.NURSE ---
pt arrived to the room, confused and unable to answer questions appropriately. Pt knows he is at [facility] but unsure as to why. Pt thinks he is going home, and is trying to get himself dressed. Pt unable to be easily redirected, Camera placed in room due to high fall risk and confusion.
--- NOTE | 2022-11-15 17:30 | PM.EVENT ---
Event Note Date of Service: 11/15/22 Event Note: admitted overnight for encephalopathy, UTI patient is awake, alert oriented to person, place and time but remains confused in NAD Acute UTI continue IV ceftriaxone Urine culture, blood cultures pending acute toxic metabolic encephalopathy likely r/t UTI no focal deficits treat above h/o CVA does not appear to be on asa continue statin BPH continue finasteride HTN continue home meds Time Spent With Patient Time: Total time managing care of this patient today ____ minutes.
--- NOTE | 2022-11-15 18:35 | PC.NURSE ---
pt refused heparin shot, Milena Watts aware.
[2022-11-15 19:39] VITALS: BP 162/94; PULSE 70; RESP 18; TEMP 36.2; O2SAT 98
--- NOTE | 2022-11-15 22:52 | PM.EVENT ---
Event Note Date of Service: 11/15/22 Event Note: pt confused, not-directable, keeps getting out of bed haldol IM given Time Spent With Patient Time: Total time managing care of this patient today ____ minutes.
[2022-11-16 06:56] VITALS: BP 133/72; PULSE 55; RESP 18; TEMP 36.1; O2SAT 96
[2022-11-16] MEDS: Finasteride 5 MG TABLET PO (09:41)
[2022-11-16] MEDS: Mirabegron 25 MG TAB.ER.24H PO (09:41)
[2022-11-16] MEDS: Atorvastatin Calcium 40 MG TABLET PO (09:41)
[2022-11-16] MEDS: 0.9 % Sodium Chloride Flush 3 ML SYRINGE IVFLUSH ×3 (09:41→20:08)
--- NOTE | 2022-11-16 13:58 | P.PNIM_ITS ---
Subjective Subjective Date of Service: 11/16/22 Interval History: seen and examined this morning follow up for UTI no abdominal pain, fever or chills; poor historian Physical Exam Vital Signs: Vital Signs: Last Vital Signs Temp 97 F 11/16/22 06:56 Pulse 55 11/16/22 06:56 Resp 18 11/16/22 06:56 BP 133/72 11/16/22 06:56 Pulse Ox 96 11/16/22 06:56 O2 Del Method 11/16/22 06:56 BMI result Body Mass Index 24.2 Const: General: cooperative, comfortable, no acute distress, alert and awake Nutritional Appearance: average body habitus Orientation/consciousness: oriented to person and oriented to place Resp: Effort & Inspection: normal respiratory effort, able to speak in complete sentences, no respiratory distress and no use of accessory muscles Cardio: Rate: regular rate Heart sounds: S1 normal heart sound present and S2 normal heart sound present GI: Inspection: No distended Palpation (GI): Soft to palpation Neuro: Other: grossly nonfocal; able to move all 4 extremities spontaneously General: oriented to person and oriented to place Extrem: General: Yes no pedal edema Objective Data Active Medications Acetaminophen (Acetaminophen 325 Mg Tablet) 650 mg PO Q6H PRN PRN Reason: Pain, Mild (Pain Scale 1-3) Atorvastatin Calcium (Atorvastatin Calcium 40 Mg Tablet) 40 mg PO DAILY [facility] Last Admin: 11/16/22 09:41 Dose: 40 mg Documented By: DIANNA Docusate Sodium (Docusate Sodium 100 Mg Capsule) 100 mg PO DAILY PRN PRN Reason: Constipation Finasteride (Finasteride 5 Mg Tablet) 5 mg PO DAILY [facility] Last Admin: 11/16/22 09:41 Dose: 5 mg Documented By: DIANNA Heparin Sodium (Porcine) (Heparin Sodium,Porcine 5,000 Unit/Ml Vial) 5,000 unit SUBCUT Q12H [facility] Last Admin: 11/15/22 19:38 Dose: 5,000 unit Documented By: DIANNA Ceftriaxone Sodium 1 gm/ (Sodium Chloride) 50 mls @ 100 mls/hr IV Q24H [facility] Last Infusion: 11/15/22 21:42 Dose: 0 mls/hr Documented By: SIVA Metoprolol Tartrate (Metoprolol Tartrate 50 Mg Tablet) 50 mg PO BID [facility]; Protocol Last Admin: 11/16/22 09:42 Dose: Not Given Documented By: DIANNA Non-Admin Reason: Decreased Heart Rate Mirabegron (Mirabegron 25 Mg Tab.Er.24h) 25 mg PO DAILY [facility] Last Admin: 11/16/22 09:41 Dose: 25 mg Documented By: DIANNA Ondansetron HCl (Ondansetron Hcl 4 Mg/2 Ml Vial) 4 mg IVPUSH Q8H PRN PRN Reason: Nausea and Vomiting Pharmacy Consult (Consult Rx Perform Med Rec) 1 each MISCELLANE ONCE PRN PRN Reason: Consult order Sodium Chloride (0.9 % Sodium Chloride Flush 3 Ml Syringe) 3 ml IVFLUSH QSHIFT [facility] Last Admin: 11/16/22 09:41 Dose: 3 ml Documented By: DIANNA Labs 11/15/22 06:40 11/15/22 06:40 Microbiology Microbiology Results: Microbiology 11/15/22 00:00 Urine Culture - Preliminary Urine clean catch - Urine mcmullen top Gram negative ant 11/14/22 23:27 Blood Culture - Preliminary Blood - Venous No growth after 24 hours. 11/14/22 23:26 Blood Culture - Preliminary Blood - Venous No growth after 24 hours. Assessment and Plan (1) Acute UTI: Status: Acute Plan This is a 72 year old male with history of CVA, HTN admitted for UTI and encephalopathy Acute UTI urine culture growing GNR continue IV ceftriaxone blood cultures negative to date acute toxic metabolic encephalopathy likely r/t UTI no focal deficits treat above h/o CVA does not appear to be on asa continue statin BPH continue finasteride HTN continue home meds dvt ppx -heparin attending - dr. brown patient requires ongoing inpatient hospitalization for IV antibiotics for management of UTI Time Spent With Patient Time: Total time managing care of this patient today ____ minutes. Quality Stroke Does the patient have a stroke diagnosis?: No VTE Prior VTE?: No VTE Risk Level:: Medical - moderate - high VTE Device Contraindication: Treatment Not Indicated VTE Drug Contraindication: N/A - Med Ordered
[2022-11-16 16:00] VITALS: BP 142/100; PULSE 100; RESP 18; TEMP 36.4; O2SAT 99
[2022-11-16] MEDS: Acetaminophen 325 MG TABLET 650 MG PO (16:18)
[2022-11-16] MEDS: Heparin Sodium,Porcine 5,000 UNIT/ML VIAL 5000 UNIT SUBCUT (17:42)
[2022-11-16] MEDS: Metoprolol Tartrate 50 MG TABLET PO (20:04)
[2022-11-16] MEDS: cefTRIAXone sodium 1 GM in 0.9 % Sodium Chloride 50 ML IV (20:08)
[2022-11-17 04:00] VITALS: BP 125/64; PULSE 50; RESP 18; TEMP 37; O2SAT 98
[2022-11-17] MEDS: Heparin Sodium,Porcine 5,000 UNIT/ML VIAL 5000 UNIT SUBCUT (05:34)
[2022-11-17 06:54] VITALS: BP 152/90; PULSE 62; RESP 18; TEMP 36.1; O2SAT 98
[2022-11-17] MEDS: Atorvastatin Calcium 40 MG TABLET PO (08:27)
[2022-11-17] MEDS: Mirabegron 25 MG TAB.ER.24H PO (08:27)
[2022-11-17] MEDS: 0.9 % Sodium Chloride Flush 3 ML SYRINGE IVFLUSH ×3 (08:27→20:07)
[2022-11-17] MEDS: Metoprolol Tartrate 50 MG TABLET PO ×2 (08:27→20:06)
[2022-11-17] MEDS: Finasteride 5 MG TABLET PO (08:27)
--- NOTE | 2022-11-17 13:37 | HO.PM.IMPN ---
Subjective Subjective Date of Service: 11/17/22 Interval History: seen and examined this morning follow up for UTI, confusion remains confused Review of Systems Review of Systems: Yes all other systems are reviewed and are negative Constitutional Constitutional: Denies chills and Denies fever(s) Cardiovascular Cardiovascular: Denies chest pain, Denies palpitations and Denies dyspnea Respiratory Respiratory: Denies cough and Denies dyspnea Endocrine Endocrine: Denies palpitations Physical Exam Vital Signs: Vital Signs: Last Vital Signs Temp 97 F 11/17/22 06:54 Pulse 62 11/17/22 06:54 Resp 18 11/17/22 06:54 BP 152/90 H 11/17/22 06:54 Pulse Ox 98 11/17/22 06:54 O2 Del Method 11/17/22 06:54 BMI result Body Mass Index 24.2 Const: General: cooperative, comfortable, no acute distress, alert and awake Nutritional Appearance: average body habitus Orientation/consciousness: oriented to person and oriented to place Resp: Effort & Inspection: normal respiratory effort, able to speak in complete sentences, no respiratory distress and no use of accessory muscles Cardio: Rate: regular rate Heart sounds: S1 normal heart sound present and S2 normal heart sound present GI: Inspection: No distended Palpation (GI): Soft to palpation Neuro: Other: grossly nonfocal; able to move all 4 extremities spontaneously General: oriented to person and oriented to place Extrem: General: Yes no pedal edema Objective Data Active Medications Acetaminophen (Acetaminophen 325 Mg Tablet) 650 mg PO Q6H PRN PRN Reason: Pain, Mild (Pain Scale 1-3) Last Admin: 11/16/22 16:18 Dose: 650 mg Documented By: DIANNA Atorvastatin Calcium (Atorvastatin Calcium 40 Mg Tablet) 40 mg PO DAILY [facility] Last Admin: 11/17/22 08:27 Dose: 40 mg Documented By: NANCY Docusate Sodium (Docusate Sodium 100 Mg Capsule) 100 mg PO DAILY PRN PRN Reason: Constipation Finasteride (Finasteride 5 Mg Tablet) 5 mg PO DAILY [facility] Last Admin: 11/17/22 08:27 Dose: 5 mg Documented By: NANCY Heparin Sodium (Porcine) (Heparin Sodium,Porcine 5,000 Unit/Ml Vial) 5,000 unit SUBCUT Q12H [facility] Last Admin: 11/17/22 05:34 Dose: 5,000 unit Documented By: DRE Ceftriaxone Sodium 1 gm/ (Sodium Chloride) 50 mls @ 100 mls/hr IV Q24H [facility] Last Infusion: 11/16/22 21:08 Dose: 0 mls/hr Documented By: DRE Metoprolol Tartrate (Metoprolol Tartrate 50 Mg Tablet) 50 mg PO BID [facility]; Protocol Last Admin: 11/17/22 08:27 Dose: 50 mg Documented By: NANCY Mirabegron (Mirabegron 25 Mg Tab.Er.24h) 25 mg PO DAILY [facility] Last Admin: 11/17/22 08:27 Dose: 25 mg Documented By: NANCY Ondansetron HCl (Ondansetron Hcl 4 Mg/2 Ml Vial) 4 mg IVPUSH Q8H PRN PRN Reason: Nausea and Vomiting Pharmacy Consult (Consult Rx Perform Med Rec) 1 each MISCELLANE ONCE PRN PRN Reason: Consult order Sodium Chloride (0.9 % Sodium Chloride Flush 3 Ml Syringe) 3 ml IVFLUSH QSHIFT [facility] Last Admin: 11/17/22 08:27 Dose: 3 ml Documented By: NANCY Labs 11/15/22 06:40 11/15/22 06:40 Microbiology Microbiology Results: Microbiology 11/15/22 00:00 Urine Culture - Final Urine clean catch - Urine mcmullen top Escherichia coli 11/14/22 23:27 Blood Culture - Preliminary Blood - Venous No growth after 48 hours. 11/14/22 23:26 Blood Culture - Preliminary Blood - Venous No growth after 48 hours. Assessment and Plan (1) Acute UTI: Status: Acute Plan This is a 72 year old male with history of CVA, HTN admitted for UTI and encephalopathy Acute UTI urine culture growing e.coli continue IV ceftriaxone blood cultures negative to date acute toxic metabolic encephalopathy likely r/t UTI no focal deficits treat above h/o CVA does not appear to be on asa - possibly due to thrombocytopenia continue statin thrombocytopenia chronic BPH continue finasteride HTN continue metoprolol dvt ppx -heparin attending - dr. greer patient requires ongoing inpatient hospitalization for IV antibiotics for management of UTI Time Spent With Patient Time: Total time managing care of this patient today ____ minutes. Quality Stroke Does the patient have a stroke diagnosis?: No VTE Prior VTE?: No VTE Risk Level:: Medical - moderate - high VTE Device Contraindication: Treatment Not Indicated VTE Drug Contraindication: N/A - Med Ordered
[2022-11-17 15:32] VITALS: BP 150/87; PULSE 65; RESP 18; TEMP 36.6; O2SAT 99
[2022-11-17 16:44] LABS: Glucose, Whole Blood 118 mg/dL (60-115)
[2022-11-17] MEDS: LORazepam 2 MG/ML VIAL 1 MG IVPUSH (18:40)
--- NOTE | 2022-11-17 18:47 | PC.NURSE ---
At Approximately 1800 pt started exit seeking, pt became agitated at started pushing past nurses stating I want to go home . Multiple attempts to redirect patient failed, at this time security was called to bedside. MD Urena notified 1mg of IVP Ativan ordered and given, results pending. Pt in bed at this time, all safety measures in place.
[2022-11-17 19:48] VITALS: BP 159/67; PULSE 68; RESP 20; TEMP 36.8
[2022-11-17] MEDS: cefTRIAXone sodium 1 GM in 0.9 % Sodium Chloride 50 ML IV (20:06)
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
[2022-11-18] MEDS: Heparin Sodium,Porcine 5,000 UNIT/ML VIAL 5000 UNIT SUBCUT ×2 (05:20→17:34)
[2022-11-18] MEDS: Haloperidol Lactate 5 MG/ML VIAL IM (06:17)
--- NOTE | 2022-11-18 06:18 | MHC.PIE ---
p; pt anxious, restless, combative with care, pt getting out of bed multiple times and exit seeking. pt verbally abusive and has been combative at times i; abbey kennedy notified; new order kal im e; will cont to moniotor
[2022-11-18 07:03] VITALS: BP 140/91; PULSE 81; RESP 18; TEMP 36.6; O2SAT 97
[2022-11-18] MEDS: Finasteride 5 MG TABLET PO (09:02)
[2022-11-18] MEDS: Atorvastatin Calcium 40 MG TABLET PO (09:02)
[2022-11-18] MEDS: 0.9 % Sodium Chloride Flush 3 ML SYRINGE IVFLUSH ×3 (09:02→19:59)
[2022-11-18] MEDS: Mirabegron 25 MG TAB.ER.24H PO (09:02)
[2022-11-18] MEDS: Metoprolol Tartrate 50 MG TABLET PO ×2 (09:02→19:58)
--- NOTE | 2022-11-18 12:38 | P.PNIM_ITS ---
Subjective Subjective Date of Service: 11/18/22 Interval History: seen and examined this morning follow up for UTI/encephalopathy not able to be re-directed overnight, restless and combative with care - received haldol sleepy but easily arousable. difficult to obtain history Physical Exam Vital Signs: Vital Signs: Last Vital Signs Temp 98 F 11/18/22 07:03 Pulse 81 11/18/22 07:03 Resp 18 11/18/22 07:03 BP 140/91 H 11/18/22 07:03 Pulse Ox 97 11/18/22 07:03 O2 Del Method 11/18/22 07:03 BMI result Body Mass Index 24.2 Const: Other: arousable to verbal stimuli General: comfortable and no acute distress Nutritional Appearance: average body habitus Orientation/consciousness: oriented to person Resp: Effort & Inspection: normal respiratory effort, able to speak in c omplete sentences, no respiratory distress and no use of accessory muscles Cardio: Rate: regular rate Heart sounds: S1 normal heart sound present and S2 normal heart sound present GI: Inspection: No distended Palpation (GI): Soft to palpation Neuro: Other: grossly nonfocal; able to move all 4 extremities spontaneously General: orie nted to person Extrem: General: Yes no pedal edema Objective Data Active Medications Acetaminophen (Acetaminophen 325 Mg Tablet) 650 mg PO Q6H PRN PRN Reason: Pain, Mild (Pain Scale 1-3) Last Admin: 11/16/22 16:18 Dose: 650 mg Documented By: DIANNA Atorvastatin Calcium (Atorvastatin Calcium 40 Mg Tablet) 40 mg PO DAILY [facility] Last Admin: 11/18/22 09:02 Dose: 40 mg Documented By: LATRICIA Docusate Sodium (Docusate Sodium 100 Mg Capsule) 100 mg PO DAILY PRN PRN Reason: Constipation Finasteride (Finasteride 5 Mg Tablet) 5 mg PO DAILY [facility] Last Admin: 11/18/22 09:02 Dose: 5 mg Documented By: LATRICIA Heparin Sodium (Porcine) (Heparin Sodium,Porcine 5,000 Unit/Ml Vial) 5,000 unit SUBCUT Q12H [facility] Last Admin: 11/18/22 05:20 Dose: 5,000 unit Documented By: DRE Ceftriaxone Sodium 1 gm/ (Sodium Chloride) 50 mls @ 100 mls/hr IV Q24H [facility] Last Infusion: 11/17/22 20:40 Dose: 0 mls/hr Documented By: DRE Metoprolol Tartrate (Metoprolol Tartrate 50 Mg Tablet) 50 mg PO BID [facility]; Protocol Last Admin: 11/18/22 09:02 Dose: 50 mg Documented By: LATRICIA Mirabegron (Mirabegron 25 Mg Tab.Er.24h) 25 mg PO DAILY [facility] Last Admin: 11/18/22 09:02 Dose: 25 mg Documented By: LATRICIA Ondansetron HCl (Ondansetron Hcl 4 Mg/2 Ml Vial) 4 mg IVPUSH Q8H PRN PRN Reason: Nausea and Vomiting Pharmacy Consult (Consult Rx Perform Med Rec) 1 each MISCELLANE ONCE PRN PRN Reason: Consult order Sodium Chloride (0.9 % Sodium Chloride Flush 3 Ml Syringe) 3 ml IVFLUSH QSHIFT [facility] Last Admin: 11/18/22 09:02 Dose: 3 ml Documented By: LATRICIA Labs 11/15/22 06:40 11/15/22 06:40 Labs: Laboratory Results - last 24 hr 11/17/22 16:15 POC Glucose 118 H Microbiology Microbiology Results: Microbiology 11/15/22 00:00 Urine Culture - Final Urine clean catch - Urine mcmullen top Escherichia coli Assessment and Plan (1) Acute UTI: Status: Acute (2) Dementia: Status: Acute (3) Encephalopathy: Status: Acute Plan This is a 72 year old male with history of CVA, HTN admitted for UTI and encepha lopathy Acute UTI no evidence of sepsis urine culture growing e.coli continue IV ceftriaxone blood cultures negative to date acute toxic metabolic encephalopathy previous notes indicate history of dementia; son reports his baseline is 90% aware of everything but odd previous admission with confusion secondary to UTI was agitated overnight and received ativan and haldol likely r/t UTI/possibly hospital delirium no focal deficits treat above h/o CVA does not appear to be on asa - possibly due to thrombocytopenia continue statin thrombocytopenia chronic BPH continue finasteride HTN continue metoprolol dvt ppx -heparin attending - dr. Cervantes PT eval - rec STR patient requires ongoing inpatient hospitalization for IV antibiotics for management of UTI Time Spent With Patient Time: Total time managing care of this patient today ____ minutes. Quality Stroke Does the patient have a stroke diagnosis?: No VTE Prior VTE?: No VTE Risk Level:: Medical - moderate - high VTE Device Contraindication: Treatment Not Indicated VTE Drug Contraindication: N/A - Med Ordered
[2022-11-18 15:47] VITALS: BP 147/94; PULSE 68; RESP 18; TEMP 36.3; O2SAT 98
[2022-11-18 20:00] VITALS: BP 162/96; PULSE 70; RESP 17; TEMP 36.1; O2SAT 97
[2022-11-18] MEDS: cefTRIAXone sodium 1 GM in 0.9 % Sodium Chloride 50 ML IV (20:01)
[2022-11-19 02:46] VITALS: BP 163/99; PULSE 63; RESP 17; TEMP 36.4; O2SAT 95
[2022-11-19] MEDS: Heparin Sodium,Porcine 5,000 UNIT/ML VIAL 5000 UNIT SUBCUT (05:55)
[2022-11-19 08:00] VITALS: BP 145/70; PULSE 68; RESP 18; TEMP 36.3; O2SAT 98
[2022-11-19] MEDS: Mirabegron 25 MG TAB.ER.24H PO (08:47)
[2022-11-19] MEDS: Finasteride 5 MG TABLET PO (08:48)
[2022-11-19] MEDS: Atorvastatin Calcium 40 MG TABLET PO (08:48)
[2022-11-19] MEDS: Metoprolol Tartrate 50 MG TABLET PO (08:48)
--- NOTE | 2022-11-19 09:49 | MHC.CM.PN ---
Addendum entered by Patt [place] 11/19/22 13:06: PTS SON WILL BE HERE AT 1330 TO TRANSPORT PT PTS NURSE AND PT AWARE Addendum entered by Patt [place] 11/19/22 12:24: SEVERAL STR REFERRALS MADE NO LOCAL BED OFFERS PT AND SON BOTH STATE THEY DO NOT WANT HIM TO GO FAR PT REPORTS HE WOULD RATHER GO TO OP PT AT [facility] SON REPORTS HE CAN CONNECT WITH PCP TO SEE IF THEY CAN REFER HIM TO A STR NEARBY ONCE BEDS OPEN SON REPORTS HE WOULD LIKE TO CLOTH BEAMER PT BEFORE 1400 HOURS HE HAS AN IN HOME APPT WITH [facility] AND PT MUST BE PRESENT PT REPORTS HE WANTS TO GO SOON POSSIBLE PROVIDER AWARE AND WILL PREPARE DC SON WILL BE CALLED WHEN PT IS READY TO LEAVE PT WILL DC HOME WITH [facility] SON WILL TRANSPORT Original Note: CM MET WITH PT TO DISCUSS DC PLANNING PT REPORTS HE IS OPEN TO STR CM UPDATED REFERRAL AWAITING RESPONSE TO DETERMINE IF [facility] CAN OFFER A BED
--- NOTE | 2022-11-19 10:45 | HO.PM.IMPN ---
Subjective Subjective Date of Service: 11/19/22 Physical Exam Vital Signs: Vital Signs: Last Vital Signs Temp 97.3 F 11/19/22 08:00 Pulse 68 11/19/22 08:00 Resp 18 11/19/22 08:00 BP 145/70 H 11/19/22 08:00 Pulse Ox 98 11/19/22 08:00 O2 Del Method 11/19/22 08:00 BMI result Body Mass Index 24.2 Objective Data Active Medications Acetaminophen (Acetaminophen 325 Mg Tablet) 650 mg PO Q6H PRN PRN Reason: Pain, Mild (Pain Scale 1-3) Last Admin: 11/16/22 16:18 Dose: 650 mg Documented By: DIANNA Atorvastatin Calcium (Atorvastatin Calcium 40 Mg Tablet) 40 mg PO DAILY [facility] Last Admin: 11/19/22 08:48 Dose: 40 mg Documented By: BRENDA Docusate Sodium (Docusate Sodium 100 Mg Capsule) 100 mg PO DAILY PRN PRN Reason: Constipation Finasteride (Finasteride 5 Mg Tablet) 5 mg PO DAILY [facility] Last Admin: 11/19/22 08:48 Dose: 5 mg Documented By: BRENDA Heparin Sodium (Porcine) (Heparin Sodium,Porcine 5,000 Unit/Ml Vial) 5,000 unit SUBCUT Q12H [facility] Last Admin: 11/19/22 05:55 Dose: 5,000 unit Documented By: DRE Ceftriaxone Sodium 1 gm/ (Sodium Chloride) 50 mls @ 100 mls/hr IV Q24H [facility] Last Infusion: 11/18/22 20:39 Dose: 0 mls/hr Documented By: DRE Metoprolol Tartrate (Metoprolol Tartrate 50 Mg Tablet) 50 mg PO BID [facility]; Protocol Last Admin: 11/19/22 08:48 Dose: 50 mg Documented By: BRENDA Mirabegron (Mirabegron 25 Mg Tab.Er.24h) 25 mg PO DAILY [facility] Last Admin: 11/19/22 08:47 Dose: 25 mg Documented By: BRENDA Ondansetron HCl (Ondansetron Hcl 4 Mg/2 Ml Vial) 4 mg IVPUSH Q8H PRN PRN Reason: Nausea and Vomiting Pharmacy Consult (Consult Rx Perform Med Rec) 1 each MISCELLANE ONCE PRN PRN Reason: Consult order Sodium Chloride (0.9 % Sodium Chloride Flush 3 Ml Syringe) 3 ml IVFLUSH QSHIFT [facility] Last Admin: 11/19/22 07:27 Dose: Not Given Documented By: BRENDA Non-Admin Reason: See Note Labs 11/15/22 06:40 11/15/22 06:40 Assessment and Plan Time Spent With Patient Time: Total time managing care of this patient today ____ minutes. Quality Stroke Does the patient have a stroke diagnosis?: No VTE Prior VTE?: No VTE Risk Level:: Medical - moderate - high VTE Device Contraindication: Treatment Not Indicated VTE Drug Contraindication: N/A - Med Ordered
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
--- NOTE | 2022-11-19 12:30 | W.MHC.F2F ---
Service Date Service Date: 11/19/22 Encounter Date of encounter: 11/19/22 Reasons for Services Signs and symptoms assessed: Weakness Reason for physical therapy: home safety and mobility Homebound: Leaving the home is medically contraindicated at this time without the asist of a device and/or another person due th the listed conditions above and below. Reason homebound: unsteady gait / fall risk Certification: Based on the above findings, I certify that this patient is confined to the home and needs intermittent custodial care, physical therapy and/or speech therapy, or continues to need occupational therapy. The patient is under my care, and I have initiated the establishment of the plan of care. The patient will be followed by a physician who will periodically review the plan of care. Time Spent With Patient Time: Total time managing care of this patient today ____ minutes.
== END 2022-11-19 14:38 | disposition home health service (06) | DRG 689 ==
LOC: HO.ED 22:34 → HO.EDOVER 11-15 05:07 → HO.S3 11-15 16:00
PROVIDERS: Physician Assistant Medical; Admitting Provider Internal Medicine; Emergency Provider Student in an Organized Health Care Education/Training Program; PCP Internal Medicine; Visit Provider Nurse Practitioner Acute Care
DX: N39.0 Urinary tract infection, site not specified (principal); G92.8 Other toxic encephalopathy; T76.11XA Adult physical abuse, suspected, initial encounter; F03.911 Unspecified dementia, unspecified severity, with agitation; I10 Essential (primary) hypertension; B96.20 Unspecified Escherichia coli [E. coli] as the cause of diseases classified elsewhere; D69.6 Thrombocytopenia, unspecified; Z86.73 Personal history of transient ischemic attack (TIA), and cerebral infarction without residual deficits; N40.0 Benign prostatic hyperplasia without lower urinary tract symptoms; E78.5 Hyperlipidemia, unspecified; Z20.822 Contact with and (suspected) exposure to COVID-19; Z79.899 Other long term (current) drug therapy
CPT/HCPCS: 36415; 80048; 80053; 81001; 82947; 83605; 83880; 84484; 85025; 85610; 87040; 87086; 87088; 87186; 87502; 87635; 93005; 97162; 99221; 99285; J0696; J1643; J2060

== ENCOUNTER 2022-12-01 16:27 | Emergency (ER) | payer MEDICARE, MEDICAID, SELFPAY ==
--- NOTE | ~2022-12-01 | CT_ITS ---
EXAMINATION: CT HEAD WITHOUT CONTRAST CLINICAL INFORMATION: Fall COMPARISON: 09/01/2022 TECHNIQUE: Contiguous axial imaging was performed from the skull base to vertex without intravenous administration of contrast. This CT examination was performed using dose optimization techniques as appropriate, variously including the following: *Automated exposure control *Adjustment of mA and/or kV according to patient size (this includes techniques or standardized protocols for targeted exams where dose is matched to indication/reason for exam; i.e. extremities or head) *Use of iterative reconstruction technique DLP: 611 mGy-cm FINDINGS: There is no midline shift. There is no mass effect. There is no hemorrhage. The basilar cisterns appear patent. The posterior fossa is grossly within normal limits. There is no extra-axial collection. Note is made of White matter ischemic changes and atrophy. There is no evidence for fracture on the bone windows. CT/CT head/brain wo IV con IMPRESSION: Negative acute noncontrast CT of the brain. Atrophy and white matter ischemic changes are noted.
[2022-12-01 16:32] VITALS: BP 170/100; PULSE 61; O2SAT 98
[2022-12-01 16:43] VITALS: BP 154/87; PULSE 60; RESP 18; TEMP 36.8; O2SAT 100; BMI 28.0
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
--- NOTE | 2022-12-01 17:19 | ED.FALL ---
HPI - Fall General Chief Complaint: Fall Stated Complaint: FALL,ABRASION,+HS,-LOC,-THINNERS Time Seen by Provider: 12/01/22 16:32 Source: patient Mode of arrival: EMS History of Present Illness HPI Narrative: This is a 72-year-old male who states that he was walking and eating a banana when he fell forward and struck his forehead and nose, he denies any loss of consciousness and denies any pain except of at his nose and forehead. He is brought in by EMS. Related Data Previous Rx's Medication Instructions Recorded Depend Underwear For Men Alexy #64 ea 12/01/21 (diaper,brief,adult,disposable) Washable bed pad #10 ea 12/01/21 metoprolol tartrate 50 mg tablet 50 mg PO BID #180 tabs 12/04/21 atorvastatin 40 mg tablet 40 mg PO DAILY #90 tabs 08/23/22 finasteride 5 mg tablet 5 mg PO DAILY 90 days #90 tabs 10/11/22 methenamine hippurate 1 gram tablet 1 g PO daily 90 days #90 tabs 10/11/22 mirabegron 25 mg tablet,extended 25 mg PO DAILY 30 days #30 tabs 10/11/22 release 24 hr cefuroxime axetil 500 mg tablet 500 mg PO Q12H #2 tabs 11/19/22 Allergies Allergy/AdvReac Type Severity Reaction Status Date / Time No Known Allergies Allergy Verified 11/15/22 07:25 [No Known Allergies*] Review of Systems Review of Systems: Pertinent positives and negatives as stated in HPI PMFSH Past Medical History Source: nursing notes reviewed Medical History Abnormal computed tomography angiography (CTA) Annual physical exam BPH (benign prostatic hyperplasia) CVA (cerebral vascular accident) Dementia Follicular lymphoma Hearing loss History of CVA (cerebrovascular accident) History of CVA (cerebrovascular accident) HTN (hypertension) Hyperglycemia Hyperlipidemia Hypertension Lumbar spinal stenosis Recurrent UTI Syncope Surgical History H/O colonoscopy No pertinent past surgical history Family History Family History Father Colon cancer HTN (hypertension) Brother Non-Hodgkin lymphoma HTN (hypertension) Sister HTN (hypertension) Mother HTN (hypertension) TIA (transient ischemic attack) Social History Social History Household Members: Children Household Members Other:: He mentioned 2 dogs and a person, but not answering now. Housing: Unknown / Unable to assess Housing Other:: Unsure if this is correct. Are you a primary school child care attendant to a significant other at home: No Do you presently have visiting nurse or other home services: Yes Unable to assess alcohol history related to: Unknown Alcohol intake: never Patient Tobacco Use Status: Never used Tobacco Smoked in Last 30 Days: No e-Cigarette/Vaping Use: Never Used Use of substances other than those prescribed or required for medical reasons: No Advance Directives: Yes Advance Directives on File: Yes Advance Directives Date on File: 08/29/22 service: No Current occupational status: retired Cognitive needs: No Hearing needs: Yes Vision needs: No Physical Exam Vital Signs: Vital Signs: Last Vital Signs Temp 98.3 F 12/01/22 16:43 Pulse 60 12/01/22 16:43 Resp 18 12/01/22 16:43 BP 154/87 H 12/01/22 16:43 Pulse Ox 100 12/01/22 16:43 O2 Del Method 12/01/22 16:43 BMI result Body Mass Index 28.0 VITAL SIGNS: Reviewed. GENERAL: Well developed, well nourished, in no acute distress. HEAD: Normocephalic/abrasions, superficial that extends from above the left eyebrow into the hairline, no noted contusions EYES: PERRLA, EOMI EARS: Ext canals without abnormality, TMs non-bulging and non-erythematous NOSE: Nares patent bilateral, no septal hematoma, there are abrasions to the bridge of the nose without obvious deformity OROPHARYNX: no oral lesions noted, posterior pharynx clear NECK: Supple, no adenopathy, no midline cervical spine tenderness or step-offs LUNGS: Normal breath sounds. No adventitious sounds or accessory muscle use. SpO2<100>; CHEST WALL: No chest wall tenderness, crepitus, deformity CARDIOVASCULAR: Regular rate and rhythm without noted murmurs ABDOMEN: Soft, non-tender, non-distended with bowel sounds. PELVIS: Stable, nontender MUSCULOSKELETAL: No tenderness, deformities, or effusions noted on gross inspection. EXTREMITIES: No cyanosis, clubbing or edema; LEFT KNEE: Superficial abrasions, there is and aging ecchymotic area to the medial aspect of the knee. SKIN: Inspection of the skin reveals no rashes NEUROLOGIC: Alert and oriented x 4. Strength and sensation to light touch were grossly intact x 4. Medications Administered Discontinued Medications Generic Name Dose Route Start Last Admin Trade Name Rj PRN Reason Stop Dose Admin Acetaminophen 975 mg 12/01/22 17:20 12/01/22 17:59 Acetaminophen 325 Mg Tablet PO 12/01/22 17:21 975 mg ONCE ONE Administration Ibuprofen 400 mg 12/01/22 17:20 12/01/22 19:11 Ibuprofen 400 Mg Tablet PO 12/01/22 17:21 400 mg ONCE ONE Administration Medical Decision Making Medical Decision Making MDM Narrative: 72-year-old male with a mechanical fall, no LOC and no blood thinners. I reviewed all imaging studies and patient is otherwise stable for discharge to home. Differential Diagnosis Please see the discussion above Radiology Impression Radiologist Impression: My interpretation is in agreement with radiology's impression of the imaging study. Discharge Plan Discharge Clinical Impression: Fall, Abrasion of face Patient Disposition: Home, Self-Care Instructions: Fall Prevention for Older Adults (ED), Abrasion (ED) Additional Instructions: 1. Resume all home medications as prescribed. 2. Recommend antibiotic ointment to your abrasions. Return to the ER for any worsening symptoms. Prescriptions: No Action (DME) Depend Underwear For Men Cosmo-Md Misc See Rx Instructions .MEDSUPPLY Qty: 64 11RF Rx Instructions: As directed-size sm/med (DME) Washable bed pad Medium See Rx Instructions .Route .MEDSUPPLY Qty: 10 0RF Rx Instructions: As directed metoprolol tartrate 50 mg tablet 50 mg PO BID Qty: 180 3RF atorvastatin 40 mg tablet 40 mg PO DAILY Qty: 90 3RF finasteride 5 mg tablet 5 mg PO DAILY 90 Days Qty: 90 1RF Rx Instructions: Take medication alternating calendar months cefuroxime axetil 500 mg tablet 500 mg PO Q12H Qty: 2 0RF mirabegron 25 mg tablet extended release 24 hr 25 mg PO DAILY 30 Days Qty: 30 1RF methenamine hippurate 1 gram tablet 1 g PO daily 90 Days Qty: 90 1RF Referrals: Esthela Carrillo MD [Primary Care Provider] -
--- OUTSIDE RECORDS SUMMARY | 2022-12-01 17:23 | XMS_ITS ---
:1950 Author Care Team Providers Name Role Phone VLADIMIR CRUZ 2ND FLOOR OTHER [phone] HEBERT SANCHEZ MD Primary Care Provider [phone] Allergies Code Code System Name Reaction Severity Status Onset NKDA ? Medications No Medications Reported Notes: meds reviewed, see MAR for comp lete list Problems Name Status Onset Date Source ? Carcinoma of Prostate Active 12/07/2021 ? Follicular non-Hodgkin's Lymphoma Active 12/07/2021 ? Hyperlipidemia Active 12/07/2021 ? Thrombocytopenic Disorder Active 12/07/2021 ? Hypertensive Disorder Active 12/07/2021 ? Recurrent Urinary Tract Infection Active 12/07/2021 ? Spinal Stenosis of Lumbar Region Active 12/07/2021 ? Asthenia Active 12/07/2021 ? History of Cerebrovascular Accident Active 12/07/2021 ? Dementia Active 12/07/2021 ? Benign Prostatic Hyperplasia without Outflow Obstruction Active 12/07/2021 ? Sexually Disinhibited Behavior Active 12/11/2021 ? Falls Active 06/06/2022 ? Procedures Notes: none recorded Results Lab Results None recorded. Past Encounters Encounter Date Diagnosis Provider 06/06/2022 Falls; Dementia; Hypertensive Julia deleon, [employer] OWNER: [address]; Hyperlipidemia; Benign [address], [place], [place] Prostatic Hyperplasia without Outflow [phone], Ph. Obstruction 01/01/2022 Hypertensive Disorder; History of ESTER CastleP: [address] Cerebrovascular Accident; [place] [address], Ph. Stenosis of Lumbar Region; Hyperlipidemia; Dementia; Benign Prostatic Hyperplasia without Outflow Obstruction; Carcinoma of Prostate; Follicular non-Hodgkin's Lymphoma; Recurrent Urinary Tract Infection; Sexually Disinhibited Behavior; Thrombocytopenic Disorder 12/28/2021 Hypertensive Disorder Mike Tirado [employer] OWNER: [address], [place] [phone], Ph. 12/27/2021 Dementia; Benign Prostatic Hyperplasia C jose f Lucas BUSINESS ANALYSIS PROFESSIONAL: [address], without Outflow Obstruction; [place] [address], Ph. Hypertensive Disorder 12/25/2021 Dementia; Benign Prostatic Hyperplasia T wilfredosa Wilder, BUSINESS ANALYSIS PROFESSIONAL: [address] without Outflow Obstruction; St, [place] [address], Ph. Hypertensive Disorder 12/22/2021 Recurrent Urinary Tract Infection; Susanna Wilder BUSINESS ANALYSIS PROFESSIONAL: [address], [place], [place] [phone], Ph. 12/21/2021 Recurrent Urinary Tract Infection; Kiara Valentino [employer] OWNER: [address], Asthenia; Dementia; [place] [phone], Ph. Cerebrovascular Accident; Hypertensive [phone] Disorder; Hyperlipidemia; Thrombocytopenic Disorder; Benign Prostatic Hyperplasia without Outflow Obstruction; Carcinoma of Prostate; Spinal Stenosis of Lumbar Region; Follicular non-Hodgkin's Lymphoma 12/19/2021 Recurrent Urinary Tract Infection; Kiara Valentino [employer] OWNER: [address], Asthenia; Dementia; [place] [phone], Ph. Cerebrovascular Accident; Hypertensive Disorder; Hyperlipidemia; Thrombocytopenic Disorder; Benign Prostatic Hyperplasia without Outflow Obstruction; Carcinoma of Prostate; Spinal Stenosis of Lumbar Region; Follicular non-Hodgkin's Lymphoma 12/18/2021 Dementia; History of Cerebrovascular The [employer] Black: [address] Accident; Hypertensive Disorder; St, [place] [address], Ph. Benign Prostatic Hyperplasia without Outflow Obstruction 12/15/2021 Suicidal Thoughts; History of BAO Cantor: [address] Cerebrovascular Accident; Dementia St, [place] [address], Ph. 12/14/2021 Recurrent Urinary Tract Infection; Kiara Valentino [employer] OWNER: [address], Asthenia; Dementia; [place] [address], Ph. Cerebrovascular Accident; Hypertensive [phone] Disorder; Hyperlipidemia; Thrombocytopenic Disorder; Benign Prostatic Hyperplasia without Outflow Obstruction; Carcinoma of Prostate; Spinal Stenosis of Lumbar Region; Follicular non-Hodgkin's Lymphoma 12/12/2021 Toxic Metabolic Encephalopathy; Manolo ellington MD: [address], Impaired Cognition; Asthenia; [place] [phone], Ph. Dementia; History of Cerebrovascular [phone] Accident; Hypertensive Disorder; Hyperlipidemia; Benign Prostatic Hyperplasia without Outflow Obstruction; Carcinoma of Prostate; Spinal Stenosis of Lumbar Region; Follicular non-Hodgkin's Lymphoma 12/11/2021 Dementia; Localized Eruption of Skin; Th flori Wilder, BUSINESS ANALYSIS PROFESSIONAL: [address] Sexually Disinhibited Behavior; [place], [place] [address], Ph. History of Cerebrovascular Accident; Pain in Both Feet 12/08/2021 Recurrent Urinary Tract Infection; There ESTER ChristianP: [address] Localized Eruption of Skin; Asthenia St, [place] [address], Ph. 12/07/2021 Recurrent Urinary Tract Infection; Kiara Valentino [employer] OWNER: [address], Asthenia; Dementia; [place] [address], Ph. Cerebrovascular Accident; Hypertensive Disorder; Hyperlipidemia; Thrombocytopenic Disorder; Benign Prostatic Hyperplasia without Outflow Obstruction; Carcinoma of Prostate; Spinal Stenosis of Lumbar Region; Follicular non-Hodgkin's Lymphoma Social History Tobacco Smoking Status Unknown If Ever Smoked Vaccine List None recorded. Plan of Care Reminders Provider Appointments None recorded. ? ? Lab None recorded. ? ? Referral None recorded. ? ? Procedures None recorded. ? ? Surgeries None recorded. ? ? Imaging None recorded. ? ? Vitals 06/06/2022 10:10AM Initial Intake Note Height Weight BMI Blood Pressure 5 ft 8 in 175 lbs 26.6 kg/m2 143/73 mm[Hg] 01/01/2022 08:37AM Discharge Summary Weight Blood Pressure 177 lbs 116/81 mm[Hg] 12/28/2021 08:26AM Acute Rounding Visit Weight Blood Pressure 177.4 lbs 145/90 mm[Hg] 12/27/2021 01:52PM Acute Rounding Visit Blood Pressure 151/85 mm[Hg] 12/25/2021 10:52AM Acute Rounding Visit Blood Pressure 168/93 mm[Hg] 12/22/2021 11:38AM Acute Rounding Visit Blood Pressure 156/95 mm[Hg] 12/21/2021 10:09AM Acute Rounding Visit Blood Pressure 156/87 mm[Hg] 12/19/2021 11:17AM Acute Rounding Visit Blood Pressure 132/90 mm[Hg] 12/18/2021 08:43AM Acute Rounding Visit Blood Pressure 122/64 mm[Hg] 12/15/2021 12:05PM Acute Rounding Visit Weight Blood Pressure 160 lbs 139/87 mm[Hg] 12/14/2021 01:02PM Acute Rounding Visit Blood Pressure 118/74 mm[Hg] 12/12/2021 11:08AM Admitting H&P Blood Pressure 124/84 mm[Hg] 12/11/2021 08:44AM Acute Rounding Visit Weight Blood Pressure 173 lbs 122/84 mm[Hg] 12/08/2021 11:02AM Acute Rounding Visit Weight Blood Pressure 178 lbs 118/66 mm[Hg] 12/07/2021 02:14PM Initial Intake Note Blood Pressure 118/80 mm[Hg]
--- OUTSIDE RECORDS SUMMARY | 2022-12-01 17:23 | XMS_ITS | Summary of Care ---
:1950 Author Organization [facility] Address [address] [place] [address]- Encounter 02/14/18 - 02/23/18 [facility] [address] [place] [address]- Encounter Diagnosis H/O: TIA (Discharge Diagnosis) - 02/20/18 HTN - Hypertension (Discharge Diagnosis) - 02/20/18 Stroke (Discharge Diagnosis) - 02/20/18 Lymphoma (Discharge Diagnosis) - 02/20/18 Attending Physician: Johny Brown MD Vital Signs Most recent to oldest [Reference 1 2 3 Range]: Temperature Oral F [96.4-99.1 96.7 DegF 97.7 DegF 97 .8 DegF DegF] (02/23/18 6:42 AM) (02/22/18 4:04 PM) (02/22/18 6:24 A M) Peripheral Pulse Rate [60-100 bpm] 88 bpm 76 bpm 114 bpm (02/23/18 6:42 AM) (02/22/18 4:04 PM) *HI* (02/22/18 8:33 AM) Respiratory Rate [14-20 br/min] 18 br/min 18 br/min 18 br/min (02/23/18 6:42 AM) (02/22/18 4:04 PM) (02/22/18 6:24 A M) Blood Pressure [90-140/60-90 mmHg] 129/81 mmHg (02/22/18 8:33 AM) Systolic Blood Pressure [90-140 130 mmHg 150 mmHg mmHg] (02/23/18 6:42 AM) *HI* (02/22/18 4:04 PM) Diastolic Blood Pressure [60-90 81 mmHg 90 mmHg mmHg] (02/23/18 6:42 AM) (02/22/18 4:04 PM) Temperature Oral [35.8-37.3 DegC] 35.9 DegC 36.5 DegC 36.6 DegC (02/23/18 6:42 AM) (02/22/18 4:04 PM) (02/22/18 6:24 A M) Problem List Condition Effective Dates Status Health Status Informant H/O: TIA(Confirmed) Active HTN - Hypertension(Confirmed) Active Lymphoma(Confirmed)1 Active Stroke(Confirmed) Active 1Stage IV follicular Allergies, Adverse Reactions, Alerts Substance Reaction Severity Status No Known Allergies Active Medications acyclovir 200 mg oral capsule 200 mg = 1 cap, Cap, Oral, BID, 0 Refill(s) Start Date: 02/21/18 Status: Orderedallopurinol 300 mg oral tablet 300 mg = 1 tab, Tab, Oral, Daily, 30 tab, 0 Refill(s), Print Requisition Start Date: 02/21/18 Status: OrderedFlomax 0.4 mg oral capsule 0.4 mg = 1 cap, Cap, Oral, QHS, 30 cap, 0 Refill(s), Print Requisition Start Date: 02/21/18 Status: Orderedmetoprolol tartrate 25 mg oral tablet 25 mg, 1 tab, Tab, Oral, BID, 60 tab, 0 Refill(s), Print Requisition Start Date: 02/21/18 Status: OrderedMultiple Vitamins with Minerals oral tablet 1 tab, Tab, Oral, QLUNCH, 0 Refill(s) Start Date: 02/21/18 Status: Ordered Results LABORATORY Most recent to oldest 1 2 3 [Reference Range]: Estimated Creatinine 64.06 mL/min 64.06 mL/min 64.06 mL/mi n Clearance (02/22/18 6:37 AM) (02/19/18 5:13 AM) (02/18/18 5:49 AM) Creatinine Level 1.10 mg/dL (02/15/18 1:22 PM)
[2022-12-01] MEDS: Acetaminophen 325 MG TABLET 975 MG PO (17:59)
[2022-12-01] MEDS: Ibuprofen 400 MG TABLET PO (19:11)
[2022-12-01 20:03] VITALS: BP 166/98; PULSE 51; RESP 18; TEMP 36.6; O2SAT 100
--- NOTE | 2022-12-01 21:09 | PC.NURSE ---
This RN spoke to Kamar, patient's son to arrange patient transportation home from the ED. Kamar requested to discuss results of his father's urine test d/t history of recurrent UTI's. This RN spoke to Dr. Rojas who reported patient is medically cleared to be discharged home and if patient develops symptoms of UTI they should f/u with PCP. Kamar made aware of MD recommendation and is in agreement with plan for patient to be discharged home. Kamar will picking belt operator his father from ED and transport patient home.
== END 2022-12-01 22:44 | disposition home or self-care (01) ==
PROVIDERS: Emergency Provider Student in an Organized Health Care Education/Training Program; PCP Internal Medicine
DX: S00.81XA Abrasion of other part of head, initial encounter (principal); W19.XXXA Unspecified fall, initial encounter; R29.6 Repeated falls; Y93.89 Activity, other specified; Y92.019 Unspecified place in single-family (private) house as the place of occurrence of the external cause; Y99.9 Unspecified external cause status
CPT/HCPCS: 70450; 99284

== ENCOUNTER 2022-12-17 15:04 | Outpatient (REF) | payer MEDICARE, MEDICAID, SELFPAY | END 2022-12-17 15:05 | disposition home or self-care (01) | LOC: HO.HMGCLDS 15:04 | PROVIDERS: PCP Internal Medicine; Visit Provider Internal Medicine | DX: Z13.89 Encounter for screening for other disorder (principal) ==

== ENCOUNTER 2022-12-19 13:32 | Outpatient (REF) | payer MEDICARE, MEDICAID, SELFPAY | END 2022-12-19 13:33 | disposition home or self-care (01) | LOC: HO.HMGCLNP 13:32 | PROVIDERS: Visit Provider Internal Medicine | DX: N39.0 Urinary tract infection, site not specified (principal) | CPT/HCPCS: 87086; 87088; 87186 ==

== ENCOUNTER 2023-02-15 15:29 | Inpatient (IN) | payer MEDICARE, MEDICAID, SELFPAY ==
--- NOTE | ~2023-02-15 | XR_ITS ---
EXAMINATION: XR CHEST CLINICAL INFORMATION: Altered mental status, stroke. COMPARISON: Chest radiograph 09/01/2022. TECHNIQUE: Frontal view of the chest was obtained. FINDINGS: Low lung volumes with bronchovascular crowding. No focal airspace opacity, pleural effusion or pneumothorax. No acute osseous abnormalities. The visualized upper abdomen is within normal limits. XR/XR chest 1V IMPRESSION: 1. Low lung volumes with bronchovascular crowding. 2. No focal airspace opacity, pleural effusion or pneumothorax.
--- NOTE | ~2023-02-15 | CT_ITS ---
EXAMINATION: CT angio head neck stroke CLINICAL INFORMATION: Left-sided weakness. COMPARISON: CT scan of the head 02/15/2023. TECHNIQUE: Ceramic Plater images were obtained. A CT angiogram of the head and neck was performed in the arterial phase after the intravenous administration of 70 mL Omnipaque 350. Pre and delayed postcontrast images of the head were also obtained. 3D images were processed on an independent workstation under concurrent supervision. Arterial stenoses are measured in accordance with NASCET criteria or similar method if applicable. This CT examination was performed using dose optimization techniques as appropriate, including one or more of the following: Automated exposure control, iterative reconstruction, and adjustment of technique factors (mA and/or kVp) according to patient size (this includes techniques or standardized protocols for targeted exams where dose is matched to indication/reason for exam). Fleischner Society criteria for the followup of incidental pulmonary nodules was implemented if appropriate. Total exam dose-length product 1450 mGy-cm FINDINGS: Head: Postcontrast images reveal no abnormal intracranial mass or enhancement. There is no intracranial mass effect or midline shift. Lateral and third ventricles are relatively prominent and there is corresponding effacement of the sulcal spaces particularly near the vertex. Coronal images reveal narrowing of the callosal angle. There are numerous foci of hypoattenuation within the periventricular white matter that most likely represent a chronic manifestation of small vessel ischemia. [place]-white matter differentiation is otherwise preserved and there is no evidence of acute territorial infarct. The calvarium and skull base are intact. Mastoid air cells and middle ear cavities are well aerated. No active paranasal sinus disease. CT angiogram neck: The aortic arch apex is normal. Origins of the major aortic branches are widely patent. Common carotid arteries are normal. Partially calcified atheromatous plaque involves both carotid bifurcations. No stenosis of the extracranial internal carotid arteries. The cervical vertebral arteries are patent. CT angiogram head: This component of the examination is significantly degraded by patient motion. Specifically the intracranial internal carotid arteries are not well assessed. The intradural vertebral artery segments and basilar artery are grossly patent. Anterior, middle, and posterior cerebral artery complexes are normal. No intracranial large vessel occlusion. Other: Soft tissues of the neck including the thyroid gland are normal. Lung apices are clear. No acute osseous finding. There is advanced multilevel degenerative spondylosis of the cervical spine with a bulging disc in conjunction with facet degenerative change causes at least moderate canal stenosis at the level of C3-C4. CT/CT angio head neck stroke IMPRESSION: The diagnostic accuracy of this examination is limited due to the extent of patient motion. Specifically the intracranial internal carotid arteries are not well assessed. No stenosis of the cervical carotid or vertebral arteries. No intracranial large vessel occlusion. There are numerous chronic small vessel ischemic changes within the periventricular white matter. Grossly no evidence of acute territorial infarct or hemorrhage. No abnormal intracranial mass or enhancement. There is advanced multilevel degenerative spondylosis of the cervical spine with at least moderate canal stenosis at C3-C4. If there are clinical symptoms of compressive myelopathy then a dedicated cervical spine MRI can be obtained for better anatomic characterization of the cord and canal. This critical result was discussed with Ben Campos at 4:29 PM on 02/15/2023 and it was ascertained that the content and urgency of the report was understood at the time of direct communication.
--- NOTE | ~2023-02-15 | CT_ITS ---
EXAMINATION: CT HEAD WITHOUT CONTRAST (STROKE PROTOCOL) CLINICAL INFORMATION: Stroke protocol. AMS, left-sided weakness. COMPARISON: CT brain 12/01/2021. TECHNIQUE: Contiguous axial imaging was performed from the skull base to vertex without intravenous administration of contrast. This CT examination was performed using dose optimization techniques as appropriate, variously including the following: *Automated exposure control *Adjustment of mA and/or kV according to patient size (this includes techniques or standardized protocols for targeted exams where dose is matched to indication/reason for exam; i.e. extremities or head) *Use of iterative reconstruction technique DLP: 646 mGy-cm FINDINGS: There is no acute intra-axial or extra-axial bleed, masses or midline shift. There is no acute infarction in evolution. There is diffuse periventricular hypodensity in both cerebral hemispheres without mass effect. The mcmullen to white matter differentiation is maintained normal. The lateral ventricles are symmetrical in size and configuration without enlargement. Bone windows reveal no calvarial abnormality. There is no scalp soft tissue abnormality. Bilateral paranasal sinuses are well-aerated. CT/CT head for stroke IMPRESSION: 1. No acute intracranial process seen. 2. Chronic small vessel ischemic changes in both cerebral hemispheres. This critical result was discussed with Dr Campos at 3:52PM on 02/15/2023. It was ascertained that the content and urgency of the report was understood at the time of direct communication.
--- NOTE | 2023-02-15 15:34 | ECG_ITS ---
Test Reason : STROKE Blood Pressure : / mmHG Vent. Rate : 104 BPM Atrial Rate : 104 BPM P-R Int : 180 ms QRS Dur : 070 ms QT Int : 370 ms P-R-T Axes : 052 -18 003 degrees QTc Int : 486 ms Sinus tachycardia Nonspecific ST abnormality Abnormal ECG When compared with ECG of 01-SEP-2022 14:51, No significant change was found Referred By: Ben Campos Electronically Signed By:DOUG MARIEE
[2023-02-15 15:39] LABS: Glucose, Whole Blood 87 mg/dL (60-115)
--- NOTE | 2023-02-15 15:44 | ED.GENADULT ---
HPI - General Adult General Chief complaint: Stroke Stated complaint: STROKE ALERT Time Seen by Provider: 02/15/23 15:36 Source: EMS Mode of arrival: EMS Limitations: altered mental status History of Present Illness HPI narrative: 72-year-old male with history of stroke with residual left-sided deficits presents with acute onset approximately 4 hours ago of altered mental status and acute on chronic left-sided weakness. Symptoms described as severe. There is no clear relieving or exacerbating features. There is no fall or head injury today. However, patient reportedly had a head injury approximately 3-4 days ago. He is reportedly not on any blood thinning medications according to the son. Patient was hemodynamically stable. Was noted on transport to have left-sided weakness, one-word answers/altered mental status and difficulty following commands. Upon arrival, when patient was asked if he was having any pain he says yes however he was not able to localize in her express any area that was causing pain. Related Data Previous Rx's Medication Instructions Recorded Depend Underwear For Men Alexy #64 ea 12/01/21 (diaper,brief,adult,disposable) Washable bed pad #10 ea 12/01/21 atorvastatin 40 mg tablet 40 mg PO DAILY #90 tabs 08/23/22 finasteride 5 mg tablet 5 mg PO DAILY 90 days #90 tabs 10/11/22 methenamine hippurate 1 gram tablet 1 g PO daily 90 days #90 tabs 10/11/22 mirabegron 25 mg tablet,extended 25 mg PO DAILY 30 days #30 tabs 10/11/22 release 24 hr nitrofurantoin 100 mg PO Q12H 7 days #14 caps 12/21/22 monohydrate/macrocrystals 100 mg capsule (Macrobid) metoprolol tartrate 50 mg tablet 50 mg PO BID #180 tabs 02/15/23 Allergies Allergy/AdvReac Type Severity Reaction Status Date / Time No Known Allergies Allergy Verified 12/14/22 13:44 [No Known Allergies*] Review of Systems Review of Systems: Yes Unobtainable due to mental status PMFSH Past Medical History Medical History Abnormal computed tomography angiography (CTA) Annual physical exam BPH (benign prostatic hyperplasia) CVA (cerebral vascular accident) Dementia Follicular lymphoma Hearing loss History of CVA (cerebrovascular accident) History of CVA (cerebrovascular accident) HTN (hypertension) Hyperglycemia Hyperlipidemia Hypertension Lumbar spinal stenosis Recurrent UTI Syncope Surgical History H/O colonoscopy No pertinent past surgical history Family History Family History Father Colon cancer HTN (hypertension) Brother Non-Hodgkin lymphoma HTN (hypertension) Sister HTN (hypertension) Mother HTN (hypertension) TIA (transient ischemic attack) Social History Social History Household Members: Children Household Members Other:: He mentioned 2 dogs and a person, but not answering now. Housing: Unknown / Unable to assess Housing Other:: Unsure if this is correct. Are you a primary family day care worker to a significant other at home: No Do you presently have visiting nurse or other home services: Yes Unable to assess alcohol history related to: Unknown Alcohol intake: never Patient Tobacco Use Status: Never used Tobacco e-Cigarette/Vaping Use: Never Used Advance Directives Date on File: 08/29/22 service: No Current occupational status: retired Cognitive needs: No Hearing needs: Yes Vision needs: No Physical Exam ED Vital Signs: Vital Signs - 24 hr 02/15/23 15:57 Temperature 100.5 F H Oxygen Delivery Method Room Air BMI result Body Mass Index 26.3 GEN: Well developed, no acute distress, alert, difficulty answering questions HEENT: Normocephalic, atraumatic, normal external ears, nose appears normal, no oropharyngeal edema or exudates Eyes: Normal to appearance Neck: Supple, no lymphadenopathy Respiratory: Talks in complete sentences, no respiratory distress, clear to auscultation bilaterally Cardiovascular: Regular rate and rhythm, no murmurs rubs or gallops Abdomen: Soft, nontender, nondistended, no guarding, no rebound Back: No CVA tenderness Extremities: No clubbing cyanosis or edema Neurologic: Left facial droop, staff counsel strength 5/5 symmetrical, left upper extremity strength reduced, unclear whether effort, difficulty following commands or actually weakness, difficulty following commands to elevate legs, possible aphasia both expressive and receptive Skin: No rash Course Course Course Narrative: Patient presents as a stroke alert. Patient is a history of stroke with left-sided weakness. He presents now with difficulty speaking including receptive speech. He does have some demonstrable left-sided weakness however is difficult to assess as he is having problems following commands. 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 His flexion of the upper extremities also appears to be 5/5 but he is having difficulty understanding extension commands. He does appear to have a slight facial droop on the left side but normal smile. My initial evaluation of the CT scan without intravenous contrast demonstrates no obvious intracranial bleeding. There is certainly bilateral calcifications within the internal capsules. Patient had a CT angiogram. Will contact Neurology. Reevaluation(s) Reevaluation #1: Patient CT scan per Dr. Avina shows no acute intracranial bleeding. There are calcifications within the internal capsule on some [id number] atrophy but no obvious acute bleeding or acute hypodensities mass effect. I have reached out to Neurology, waiting to hear back. Time: 15:59 Reevaluation #2: Spoke with Dr. Agarwal. No tPA at this time. Unless he has a large MCA stroke, no transfer to a neurointerventional site. He has a fever, investigate etiology of fever that could be contributing to his acute neurologic status. Time: 16:09 Reevaluation #3: Patient is moving extremities more freely at this time. Patient is back in a normal room. Will be getting vital signs. Initial oral temp was a 100.2?. Time: 16:12 Medications Administered Discontinued Medications Generic Name Dose Route Start Last Admin Trade Name Freq PRN Reason Stop Dose Admin Iohexol 70 ml 02/15/23 15:59 02/15/23 15:59 Iohexol 350 Mg/Ml 100 Ml Infus..Btl IV 02/15/23 16:00 70 ml ONCE ONE Administration Medical Decision Making Medical Decision Making [facility] Narrative: 72-year-old male presents as a stroke alert. Patient is having expressive and receptive aphasia, left-sided weakness. Patient did have trauma to the head 3 days ago. Neurologic evaluation is difficult due to significant difficulties following commands. He was last seen normal approximately 11 30 this afternoon. Patient is not on any blood thinning medications. Differential diagnosis could include altered mental status, intracranial bleeding, acute ischemic stroke, electrolyte abnormality, thyroid dysfunction. Patient will have a CT scan of the head, CT angiogram, laboratory analysis, EKG. Patient will need to be admitted to the hospital following workup. Differential Diagnosis Differential Diagnoses: The differential diagnosis associated with the presentation includes (See above) Admission/Observation Consideration of admission/observation: Escalation of care including admission/observation considered Lab Data MDM Lab Attestation statement: I reviewed the patient's lab results. Labs: Lab Results 02/15/23 Range/Units 15:32 POC Glucose 87 (60-115) mg/dL Independent Interpretation I performed an independent interpretation of an: EKG (Sinus tachycardia heart rate 104, nonspecific T-wave changes, no acute ST elevations or depressions. QTC 486 millisecond) and CT Scan (CT head no contrast, no acute intracranial bleeding) Independent Historian Clinical information obtained from an independent historian. History obtained from or confirmed by: EMS Prescription Management I considered prescription management with: Antibiotic Chronic Conditions Patient?s care impacted by: Other (CVA) Discharge Plan Discharge Clinical Impression: Acute focal neurological deficit, onset within 3-24 hours Patient Disposition: Still a Patient Prescriptions: No Action (DME) Depend Underwear For Men Cosmo- Misc See Rx Instructions .MEDSUPPLY Qty: 64 11RF Rx Instructions: As directed-size sm/med (DME) Washable bed pad Medium See Rx Instructions .Route .MEDSUPPLY Qty: 10 0RF Rx Instructions: As directed atorvastatin 40 mg tablet 40 mg PO DAILY Qty: 90 3RF finasteride 5 mg tablet 5 mg PO DAILY 90 Days Qty: 90 1RF Rx Instructions: Take medication alternating calendar months nitrofurantoin monohyd/m-cryst [Macrobid] 100 mg capsule 100 mg PO Q12H 7 Days Qty: 14 0RF Rx Instructions: must administer with a meal/food metoprolol tartrate 50 mg tablet 50 mg PO BID Qty: 180 3RF mirabegron 25 mg tablet extended release 24 hr 25 mg PO DAILY 30 Days Qty: 30 1RF methenamine hippurate 1 gram tablet 1 g PO daily 90 Days Qty: 90 1RF
[2023-02-15 15:57] VITALS: BP 168/99; PULSE 112; TEMP 38.1; O2SAT 96; BMI 26.3
[2023-02-15] MEDS: iohexoL 350 MG/ML 100 ML INFUS..BTL 70 ML IV (15:59)
[2023-02-15 16:00] VITALS: BP 164/96; PULSE 102; RESP 20; TEMP 37.9; O2SAT 98
[2023-02-15 16:25] VITALS: TEMP 39.1
[2023-02-15 16:34] LABS: Basophils Percent Auto 0.4 % (0-2); Lymphocytes Absolute Auto 0.1 X10*3/uL (1.2-4.9); Lymphocytes Percent Auto 2.1 % (20-40); Mean Platelet Volume 10.9 fL (9.4-12.4); Monocytes Percent Auto 5.3 % (2-11); Neutrophils Percent Auto 91.4 % (45-73); PLT CLUMP 1; Red Cell Distribution Width 14.6 % (11.0-16.0); SCAN SMEAR FLAG 1
[2023-02-15 16:36] LABS: Eosinophils Percent Auto 0.6 % (0-4); Hematocrit 43.6 % (42.0-52.0); Hemoglobin 14.9 g/dl (14.0-18.0); Imm Gran Abs Auto 0.01 X10*3/uL (0.00-0.03); Imm Gran Pct Auto 0.2 % (0.0-0.4); MANUAL DIFF FLAG SCAN; Mean Corpuscular HGB Conc 34.2 g/dl (31.0-36.0); Mean Corpuscular Hemoglobin 28.4 pg (27.0-33.0); Mean Corpuscular Volume 83.2 fL (80.0-98.0); Monocytes Absolute Auto 0.3 X10*3/uL (0.1-1.2); Neutrophils Absolute Auto 4.7 x10*3/uL (2.0-8.3); Red Blood Count 5.24 X10*6/uL (4.60-5.80)
[2023-02-15 16:38] LABS: Platelet Count 89 X10*3/uL (160-400); White Blood Count 5.1 X10*3/uL (4.8-10.8)
[2023-02-15] MEDS: cefTRIAXone sodium 2 GM in 0.9 % Sodium Chloride 50 ML IV (16:43)
[2023-02-15] MEDS: SODIUM CHLORIDE 2214 ML IV (16:43)
--- NOTE | 2023-02-15 16:45 | PM.IMHP ---
History of Present Illness Date of Service: 02/15/23 Chief Complaint: Left sided weakness and cmore confused This is a 72 yo M with a PMH of BPH, for follicular lymphoma with bone marrow involvement, CVA with chronic left leg weakness, hypertension, hyperlipidemia , frequent ?hospitalization for Ecoli UTIs with encephalopathy, last epside in October 2022. He lives with his son who brought him to be evluated for being confused and maybe weaker that usual on the left side. At baseline he is not very coherent? and so not able to give any detail history.? He has a fever of 102, HR up to 102, WBC is normal, UA + for UTI, , CXR reviewed by me with no acute finding, Review of Systems Review of Systems: Yes Unobtainable due to mental status [facility] Medical History Abnormal computed tomography angiography (CTA) Annual physical exam BPH (benign prostatic hyperplasia) CVA (cerebral vascular accident) Dementia Follicular lymphoma Hearing loss History of CVA (cerebrovascular accident) History of CVA (cerebrovascular accident) HTN (hypertension) Hyperglycemia Hyperlipidemia Hypertension Lumbar spinal stenosis Recurrent UTI Syncope Family History Father Colon cancer HTN (hypertension) Brother Non-Hodgkin lymphoma HTN (hypertension) Sister HTN (hypertension) Mother HTN (hypertension) TIA (transient ischemic attack) Surgical History H/O colonoscopy No pertinent past surgical history Social History Household Members: Children Household Members Other:: He mentioned 2 dogs and a person, but not answering now. Housing: House Housing Other:: Unsure if this is correct. Are you a primary career development consultant to a significant other at home: No Do you presently have visiting nurse or other home services: Yes Unable to assess alcohol history related to: Unknown Alcohol intake: never Patient Tobacco Use Status: Never used Tobacco Smoked in Last 30 Days: No e-Cigarette/Vaping Use: Never Used Use of substances other than those prescribed or required for medical reasons: No Currently Displaying Signs/Symptoms of Drug Intoxication Withdrawal: No Have you been hit, kicked, punched, or otherwise hurt by someone within the past year? If so, by whom?: No Do you feel safe in your current relationship?: No Current Relationship Is there a partner from a previous relationship who is making you feel unsafe now?: No Are you made to feel afraid or neglected: No Advance Directives: Yes Advance Directives on File: Yes Advance Directives Date on File: 08/29/22 Do you have thoughts of harming others: None Do you have a plan to hurt others: No Plan Recently lost weight without trying: No Eating poorly because of decreased appetite: No Nutrition Risks: No Nutritional Risk service: No Current occupational status: retired Cognitive needs: No Hearing needs: Yes Vision needs: No Meds Allergies Allergy/AdvReac Type Severity Reaction Status Date / Time No Known Allergies Allergy Verified 12/14/22 13:44 [No Known Allergies*] Active Medications: Current Medications Ceftriaxone Sodium 2 gm/ (Sodium Chloride) 50 mls @ 100 mls/hr IV ONCE ONE Stop: 02/15/23 17:00 Last Admin: 02/15/23 16:43 Dose: 100 mls/hr Sodium Chloride (Ns) 2,214 mls @ 2,214 mls/hr 30 ml/kg infuse over 1 hr (2214 ml) IV .Q1H STA Stop: 02/15/23 17:30 Last Admin: 02/15/23 16:43 Dose: 2,214 mls/hr Physical Exam Vital Signs and Narrative: Vital Signs: Last Vital Signs Temp 102.4 F H 02/15/23 16:25 O2 Del Method Room Air 02/15/23 15:57 BMI result Body Mass Index 26.3 Const: Other: Constitutional: Alert, in no distress, Mental Status: Oriented to person, place not Eyes: Pupils are equal, round and reactive to light. Ear, Nose and Throat: Oropharynx clear, mucous membranes moist. Ears and nose without deformities. Trachea midline. Respiratory: Clear to auscultation. No wheezing, rales or rhonchi. Cardiovascular: S1 S2 regular. No murmurs, rubs or gallops. Gastrointestinal: Abdomen soft, non-tender, non-distended. Normal bowel sounds.? Neurologic: Cranial nerves II-XII grossly intact. No focal neurological deficits, other. Moves all extremities spontaneously.? Skin: No rashes or lesions.? Musculoskeletal: No cyanosis or clubbing. Psychiatric: Normal mood and affect? Results Labs 02/15/23 16:24 02/15/23 16:24 Labs: Laboratory Results - last 24 hr 02/15/23 02/15/23 15:32 16:24 MCV 83.2 MCH 28.4 MCHC 34.2 RDW 14.6 Plt Count 89 L MPV 10.9 Immature Gran % (Auto) 0.2 Neut % (Auto) 91.4 H Lymph % (Auto) 2.1 L [place] % (Auto) 5.3 Eos % (Auto) 0.6 Baso % (Auto) 0.4 Lymph # (Auto) 0.1 L [place] # (Auto) 0.3 Eos # (Auto) 0.0 Baso # (Auto) 0.0 Abs Immat Gran (auto) 0.01 Absolute Neuts (auto) 4.7 Absolute Nucleated RBC 0.000 Nucleated RBC % (auto) 0.0 POC Glucose 87 Imaging Radiologist's Impressions: Impressions Head CT 02/15/23 15:45 IMPRESSION: 1. No acute intracranial process seen. 2. Chronic small vessel ischemic changes in both cerebral hemispheres. This critical result was discussed with Dr Campos at 3:52PM on 02/15/2023. It was ascertained that the content and urgency of the report was understood at the time of direct communication. Head/Neck CTA 02/15/23 16:09 IMPRESSION: The diagnostic accuracy of this examination is limited due to the extent of patient motion. Specifically the intracranial internal carotid arteries are not well assessed. No stenosis of the cervical carotid or vertebral arteries. No intracranial large vessel occlusion. There are numerous chronic small vessel ischemic changes within the periventricular white matter. Grossly no evidence of acute territorial infarct or hemorrhage. No abnormal intracranial mass or enhancement. There is advanced multilevel degenerative spondylosis of the cervical spine with at least moderate canal stenosis at C3-C4. If there are clinical symptoms of compressive myelopathy then a dedicated cervical spine MRI can be obtained for better anatomic characterization of the cord and canal. This critical result was discussed with Ben Campos at 4:29 PM on 02/15/2023 and it was ascertained that the content and urgency of the report was understood at the time of direct communication. Assessment and Plan (1) Acute UTI: Status: Acute (2) Acute metabolic encephalopathy: Status: Acute Plan 72 yo M with a PMH of BPH, for follicular lymphoma with bone marrow involvement, CVA with left leg weakness, hypertension, hyperlipidemia , recurent ecoli uti here with hospitalization for UTI here with AMS, weakness fever, and and found to have sepsis d/t UTI 1/Metabolic encephalopathy d/t UTI -treat underlying UTI 2/UTI --prior cultures have shown non resistant e coli --based on prior cultures, give Ceftriaxone (02/15) 3/? weakness, exam doesn't appear particulary different from past presentation, no new stroke, I think weakness related to UTI 4. HTN--resume BP meds tomorrow, if BP ok 5. BPH? finasteride 6. HLD--Lipitor 7. Thrombocytopenia, chronic..Not due to sepsis, he has chronic thrombocytopenia likely d/t undiagnosed ITP, closely observe Full code admssion for at least 2 midnighst for manaamgent of encephalopathy d/t UTI, sespis and need IV Abx I attempted to reach negar Galvin by phone but no answer Time Spent With Patient Time: Total time managing care of this patient today ____ minutes. Quality Stroke Does the patient have a stroke diagnosis?: No VTE Prior VTE?: No VTE Risk Level:: Medical - moderate - high VTE Device Contraindication: Treatment Not Indicated VTE Drug Contraindication: N/A - Med Ordered
[2023-02-15 16:49] LABS: Partial Thromboplastin Time 30.7 SEC (26.0-36.4)
[2023-02-15 16:50] LABS: Lactic Acid 1.4 mmol/L (0.5-2.0)
[2023-02-15 16:54] LABS: Appearance Urine Cloudy; Color Urine Yellow; Glucose Urine UA Negative (Negative); Leukocyte Esterase Urine Large (3+) (Negative); Nitrite Urine Positive (Negative); PH 6.5 (5.0-9.0); Specific Gravity - Urine >= 1.030 (1.005-1.025); UMIC TRIGGER UACC YES; Urine Blood Moderate (2+) (Negative); Urine Ketones Negative (Negative); Urine Protein Negative (Neg-Trace)
--- NOTE | 2023-02-15 16:55 | MHC.EDTECH ---
Labs drawn and sent to lab. EKG completed and signed by
[2023-02-15 17:01] LABS: Anion Gap 13 (12-20); Blood Urea Nitrogen 11 mg/dL (9-16); Calcium 8.6 mg/dL (8.4-10.2); Carbon Dioxide 24 mmol/L (22-29); Chloride 107 mmol/L (96-108); Creatinine Clr Calc Pharmacy 49.4; Estimated Glomerular Filt Rate 59; Ethanol < 10 mg/dL; Glucose Random 93 mg/dL (60-115); Magnesium 1.8 mg/dL (1.6-2.6); Phosphorus 2.6 mg/dL (2.7-4.5); Potassium 4.7 mmol/L (3.3-5.1); SLIDE REVIEW VERIFIED; Sodium 139 mmol/L (135-145)
[2023-02-15 17:19] LABS: Bacteria Urine 4+ (None Seen); RBC Urine >20 /HPF (0-2); UACC Culture Trigger YES; WBC Urine >50 /HPF (0-5)
[2023-02-15] MEDS: Acetaminophen Supp 650 MG SUPP.RECT PR (17:51)
--- NOTE | 2023-02-15 18:05 | PC.NURSE ---
PT arrived as a stroke alert, EMS reporting that he was working with his therapist at 1130 and then became nonverbal, and his Left sided weakness worsened. Pt not able to respond to questions appropriately, however since getting IV fluids and antx he is more verbal. Pt still does not follow commands. Pt to get admitted for obs
--- NOTE | 2023-02-15 18:29 | MHC.STROKE ---
EMS PRE-NOTIFIED 1526 STROKE ALERT, ARRIVED AT [facility] [place] [facility]. STROKE PROTOCOL ACTIVATED. I REVIEWED CASE WITH DR COX, THEN DR ARGUETA, PATIENT KNOWN TO STROKE SERVICE FROM PRIOR ADMISSIONS, PLT CT 89, EXCLUDED FROM TPA - ALTEPLASE BASED ON SEVERAL FACTORS, INCLUDING PLT CT. FEVER, UNCLEAR ONSET CARE TEAM UNABLE TO DETERMINE ELIGIBILITY. I WILL CONTINUE TO FOLLOW.
[2023-02-15 18:56] VITALS: BMI 26.4
[2023-02-15 19:18] VITALS: BP 153/83; PULSE 90; RESP 18; TEMP 37.4; O2SAT 98
[2023-02-15 19:23] LABS: Stroke Lab Use COMPLETE
[2023-02-15 19:26] LABS: ~PT, ~INR - Anti Coag Clinic 1.1 (0.9-1.1)
--- NOTE | 2023-02-15 21:36 | PHA.MEDREC ---
Pharmacy Consult ? Medication Reconciliation Pharmacy has completed the medication reconciliation. Pt very confused. Spoke to son (also Kamar at [phone]) and he confirmed medications with me over the phone.
[2023-02-15] MEDS: 0.9 % Sodium Chloride Flush 3 ML SYRINGE IVFLUSH (23:20)
[2023-02-15 23:38] VITALS: BP 158/74; PULSE 72; RESP 18; TEMP 36.6; O2SAT 98
[2023-02-16] VITALS (7 sets, daily range): BP systolic 141–170; BP diastolic 76–88; PULSE 59–103; RESP 18–20; TEMP 36.5–37.7; O2SAT 95–98
[2023-02-16] MEDS: Acetaminophen 325 MG TABLET 650 MG PO ×2 (08:24→20:49)
[2023-02-16] MEDS: Enoxaparin Sodium 40 MG/0.4 ML SYRINGE SUBCUT (08:24)
[2023-02-16] MEDS: 0.9 % Sodium Chloride Flush 3 ML SYRINGE IVFLUSH ×2 (08:25→20:49)
--- NOTE | 2023-02-16 09:01 | P.PNIM_ITS ---
Subjective Subjective Date of Service: 02/16/23 Interval History: f/u on metabolic encephalopathy, uti interval history: more alert, no new focal neuro deficit Physical Exam Vital Signs: Vital Signs: Last Vital Signs Temp 99.9 F 02/16/23 07:17 Pulse 79 02/16/23 07:17 Resp 20 02/16/23 07:17 BP 156/87 H 02/16/23 07:17 Pulse Ox 97 02/16/23 07:17 O2 Del Method Room Air 02/16/23 07:17 BMI result Body Mass Index 26.4 Const: Other: General: AO X 2, no acute distress Resp: CTA bilateral CVS: S1,S2,RRR GI: +BS, NT, no distention Skin: No rash Neuro: chronic left sided weakness, unchanged Psych: appropriate affect Objective Data Active Medications Acetaminophen (Acetaminophen 325 Mg Tablet) 650 mg PO Q6H PRN PRN Reason: Pain, Mild (Pain Scale 1-3) Last Admin: 02/16/23 08:24 Dose: 650 mg Documented By: VASYL Enoxaparin Sodium (Enoxaparin Sodium 40 Mg/0.4 Ml Syringe) 40 mg SUBCUT DAILY [facility] Last Admin: 02/16/23 08:24 Dose: 40 mg Documented By: VASYL Magnesium Hydroxide (Milk Of Magnesia 30 Ml Oral.Susp) 30 ml PO DAILY PRN PRN Reason: Constipation Ondansetron HCl (Ondansetron Hcl 4 Mg/2 Ml Vial) 4 mg IVPUSH Q8H PRN PRN Reason: Nausea and Vomiting Sodium Chloride (0.9 % Sodium Chloride Flush 3 Ml Syringe) 3 ml IVFLUSH QSHIFT [facility] Last Admin: 02/16/23 08:25 Dose: 3 ml Documented By: VASYL Labs 02/15/23 16:24 02/15/23 16:24 Labs: Laboratory Results - last 24 hr 02/15/23 02/15/23 02/15/23 15:32 15:39 16:24 MCV 83.2 MCH 28.4 MCHC 34.2 RDW 14.6 Plt Count 89 L MPV 10.9 Immature Gran % (Auto) 0.2 Neut % (Auto) 91.4 H Lymph % (Auto) 2.1 L [place] % (Auto) 5.3 Eos % (Auto) 0.6 Baso % (Auto) 0.4 Lymph # (Auto) 0.1 L [place] # (Auto) 0.3 Eos # (Auto) 0.0 Baso # (Auto) 0.0 Abs Immat Gran (auto) 0.01 Absolute Neuts (auto) 4.7 Absolute Nucleated RBC 0.000 Nucleated RBC % (auto) 0.0 Smear Tech's Comments VERIFIED PT Whole Blood PT 13.0 INR Whole Blood INR 1.1 APTT Anion Gap Estim Creat Clear Calc Estimated GFR POC Glucose 87 Random Glucose Lactic Acid Calcium Phosphorus Magnesium TSH Urine Color Urine Appearance Urine pH Ur Specific [place] Urine Protein Urine Glucose (UA) Urine Ketones Urine Blood Urine Nitrite Ur Leukocyte Esterase Urine RBC Urine WBC Ur Squamous Epith Cells Urine Bacteria Hyaline Casts Ethyl Alcohol 02/15/23 02/15/23 02/15/23 16:24 16:24 16:24 MCV MCH MCHC RDW Plt Count MPV Immature Gran % (Auto) Neut % (Auto) Lymph % (Auto) [place] % (Auto) Eos % (Auto) Baso % (Auto) Lymph # (Auto) [place] # (Auto) Eos # (Auto) Baso # (Auto) Abs Immat Gran (auto) Absolute Neuts (auto) Absolute Nucleated RBC Nucleated RBC % (auto) Smear Tech's Comments PT 12.0 Whole Blood PT INR 1.0 Whole Blood INR APTT 30.7 Anion Gap 13 Estim Creat Clear Calc 49.4 Estimated GFR 59 POC Glucose Random Glucose 93 Lactic Acid 1.4 Calcium 8.6 Phosphorus 2.6 L Magnesium 1.8 TSH 1.00 Urine Color Urine Appearance Urine pH Ur Specific [place] Urine Protein Urine Glucose (UA) Urine Ketones Urine Blood Urine Nitrite Ur Leukocyte Esterase Urine RBC Urine WBC Ur Squamous Epith Cells Urine Bacteria Hyaline Casts Ethyl Alcohol < 10 02/15/23 16:38 MCV MCH MCHC RDW Plt Count MPV Immature Gran % (Auto) Neut % (Auto) Lymph % (Auto) [place] % (Auto) Eos % (Auto) Baso % (Auto) Lymph # (Auto) [place] # (Auto) Eos # (Auto) Baso # (Auto) Abs Immat Gran (auto) Absolute Neuts (auto) Absolute Nucleated RBC Nucleated RBC % (auto) Smear Tech's Comments PT Whole Blood PT INR Whole Blood INR APTT Anion Gap Estim Creat Clear Calc Estimated GFR POC Glucose Random Glucose Lactic Acid Calcium Phosphorus Magnesium TSH Urine Color Yellow Urine Appearance Cloudy Urine pH 6.5 Ur Specific [place] >= 1.030 H Urine Protein Negative Urine Glucose (UA) Negative Urine Ketones Negative Urine Blood Moderate (2+) H Urine Nitrite Positive H Ur Leukocyte Esterase Large (3+) H Urine RBC >20 H Urine WBC >50 H Ur Squamous Epith Cells 3-5 Urine Bacteria 4+ Hyaline Casts 3-5 Ethyl Alcohol Assessment and Plan (1) Acute UTI: Status: Acute (2) Acute metabolic encephalopathy: Status: Acute Plan 72 yo M with a PMH of BPH, for follicular lymphoma with bone marrow involvement, CVA with left leg weakness, hypertension, hyperlipidemia , recurent ecoli uti here with hospitalization for UTI here with AMS, weakness fever, and and found to have sepsis d/t UTI 1/Metabolic encephalopathy d/t UTI -treat underlying UTI 2/UTI --prior cultures have shown non resistant e coli --based on prior cultures, give Ceftriaxone (02/15) -follow culture 3/? weakness, exam doesn't appear particulary different from past presentation, no new stroke, I think weakness related to UTI 4. HTN--resume metoprolol 5. BPH? finasteride 6. HLD--Lipitor 7. 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 Quality Stroke Does the patient have a stroke diagnosis?: No VTE Prior VTE?: No VTE Risk Level:: Medical - moderate - high VTE Device Contraindication: Treatment Not Indicated VTE Drug Contraindication: N/A - Med Ordered
--- NOTE | 2023-02-16 10:17 | MHC.CM.PN ---
Addendum entered by Rita Pascual 02/16/23 13:01: SON FLOYD RETURNED CALL. SON STATES HE WOULD LIKE [facility] AGAIN [facility]/ HAS [facility]. REFERRAL SENT TO [facility]. PER SON, IF P.T. RECOMMENDS REHAB, HE WOULD LIKE FATHER TO GO TO [facility] OR [facility]. +COVID VAX X2. DP: HOME WITH SERVICES VS NO SERVICES VS STR. CM TO FOLLOW FOR DC PLAN/DC NEEDS. . Original Note: UNABLE TO REACH SON/HCP FLOYD DOVE ([phone]) MESSAGE LEFT TO RETURN CALL AND IMM EXPLAINED VIA TELEPHONE MESSAGE. WHITE COPY TO BE MAILED AND YELLOW COPY TO CHART. PT IS LETHARGIC AND UNABLE TO PROVIDE HX AT THIS TIME. SOME INFORMATION OBTAINED VIA CHART REVIEW: PT LIVES WITH SON. LAST VISIT WAS DC WITH [facility] AND [facility]. +HCP ON FILE. PCP DR. SANCHEZ. CM WILL AWAIT CALL BACK FROM SON FOR FURTHER INFORMATION AND WILL FOLLOW FOR DC PLAN/NEEDS
[2023-02-16] MEDS: Metoprolol Tartrate 50 MG TABLET PO ×2 (11:16→20:49)
[2023-02-16] MEDS: Mirabegron 25 MG TAB.ER.24H PO (11:16)
[2023-02-16] MEDS: Finasteride 5 MG TABLET PO (11:16)
[2023-02-16] MEDS: Atorvastatin Calcium 40 MG TABLET PO (11:16)
[2023-02-17] VITALS (7 sets, daily range): BP systolic 121–170; BP diastolic 60–92; PULSE 63–70; RESP 18–20; TEMP 36.9–37.9; O2SAT 94–97
[2023-02-17] MEDS: Acetaminophen 325 MG TABLET 650 MG PO (07:32)
--- NOTE | 2023-02-17 07:50 | P.PNIM_ITS ---
Subjective Subjective Date of Service: 02/17/23 Interval History: f/u on metabolic encephalopathy, uti interval history: continue to make progress, no fever Physical Exam Vital Signs: Vital Signs: Last Vital Signs Temp 100.3 F 02/17/23 07:23 Pulse 69 02/17/23 07:23 Resp 20 02/17/23 07:23 BP 159/92 H 02/17/23 07:23 Pulse Ox 96 02/17/23 07:23 O2 Del Method Room Air 02/17/23 07:23 BMI result Body Mass Index 26.4 Const: Other: General: AO X 2, no acute distress Resp: CTA bilateral CVS: S1,S2,RRR GI: +BS, NT, no distention Skin: No rash Neuro: chronic left sided weakness, unchanged Psych: appropriate affect Objective Data Active Medications Acetaminophen (Acetaminophen 325 Mg Tablet) 650 mg PO Q6H PRN PRN Reason: Pain, Mild (Pain Scale 1-3) Last Admin: 02/17/23 07:32 Dose: 650 mg Documented By: VASYL Atorvastatin Calcium (Atorvastatin Calcium 40 Mg Tablet) 40 mg PO DAILY [facility] Last Admin: 02/16/23 11:16 Dose: 40 mg Documented By: VASYL Enoxaparin Sodium (Enoxaparin Sodium 40 Mg/0.4 Ml Syringe) 40 mg SUBCUT DAILY [facility] Last Admin: 02/16/23 08:24 Dose: 40 mg Documented By: VASYL Finasteride (Finasteride 5 Mg Tablet) 5 mg PO DAILY [facility] Last Admin: 02/16/23 11:16 Dose: 5 mg Documented By: VASYL Magnesium Hydroxide (Milk Of Magnesia 30 Ml Oral.Susp) 30 ml PO DAILY PRN PRN Reason: Constipation Metoprolol Tartrate (Metoprolol Tartrate 50 Mg Tablet) 50 mg PO BID [facility]; Protocol Last Admin: 02/16/23 20:49 Dose: 50 mg Documented By: TAMMIE Mirabegron (Mirabegron 25 Mg Tab.Er.24h) 25 mg PO DAILY [facility] Last Admin: 02/16/23 11:16 Dose: 25 mg Documented By: VASYL Non-Formulary Medication (Methenamine Hippurate) 1 gm PO daily [facility] Ondansetron HCl (Ondansetron Hcl 4 Mg/2 Ml Vial) 4 mg IVPUSH Q8H PRN PRN Reason: Nausea and Vomiting Sodium Chloride (0.9 % Sodium Chloride Flush 3 Ml Syringe) 3 ml IVFLUSH QSHIFT [facility] Last Admin: 02/16/23 20:49 Dose: 3 ml Documented By: TAMMIE Labs 02/15/23 16:24 02/15/23 16:24 Microbiology Microbiology Results: Microbiology 02/15/23 Unknown Urine Culture - Final Urine Catheterized - Dowling Catheter Escherichia coli 02/15/23 16:25 Blood Culture - Preliminary Blood - Venous No growth after 24 hours. 02/15/23 16:37 Blood Culture - Preliminary Blood - Venous No growth after 24 hours. Assessment and Plan (1) Acute UTI: Status: Acute (2) Acute metabolic encephalopathy: Status: Acute Plan 72 yo M with a PMH of BPH, for follicular lymphoma with bone marrow involvement, CVA with left leg weakness, hypertension, hyperlipidemia , recurent ecoli uti here with hospitalization for UTI here with AMS, weakness fever, and and found to have sepsis d/t UTI 1/Metabolic encephalopathy d/t UTI -treat underlying UTI 2/UTI --prior cultures have shown non resistant e coli --based on prior cultures, give Ceftriaxone (02/15) -urine culture e coli sens to ceftriaxone -continue IV ceftriaoxone 3/? weakness, exam doesn't appear particulary different from past presentation, no new stroke, I think weakness related to UTI 4. HTN--resume metoprolol 5. BPH? finasteride 6. HLD--Lipitor 7. 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 Quality Stroke Does the patient have a stroke diagnosis?: No VTE Prior VTE?: No VTE Risk Level:: Medical - moderate - high VTE Device Contraindication: Treatment Not Indicated VTE Drug Contraindication: N/A - Med Ordered
[2023-02-17] MEDS: Enoxaparin Sodium 40 MG/0.4 ML SYRINGE SUBCUT (08:18)
[2023-02-17] MEDS: Metoprolol Tartrate 50 MG TABLET PO ×2 (08:19→20:07)
[2023-02-17] MEDS: Atorvastatin Calcium 40 MG TABLET PO (08:19)
[2023-02-17] MEDS: 0.9 % Sodium Chloride Flush 3 ML SYRINGE IVFLUSH (08:19)
[2023-02-17] MEDS: Mirabegron 25 MG TAB.ER.24H PO (08:19)
[2023-02-17] MEDS: Finasteride 5 MG TABLET PO (08:19)
[2023-02-17] MEDS: cefTRIAXone sodium 1 GM in 0.9 % Sodium Chloride 50 ML IV (08:19)
--- NOTE | 2023-02-17 18:05 | PC.NURSE ---
technical document writer had phone discussion with daughter, who along with son is HCP and POA for pt. Daughter stated that she sets up patients medications for the week and often when she returns, many days worth of pills have not been taken. She feels this may the source of pt's recurring UTIs. Daughter also states that while pt lives with son the two often do not see eye to eye and that pt can be quite stubborn/contrary and does not like to be told what to do. daughter also stated that in the past, pt had success with inpatient PT but when in-home PT was tried, it failed as patient didn't want to do anything he was told. Daughter expressed an interest in having pt go to inpatient physical therapy upon discharge.
[2023-02-18] MEDS: 0.9 % Sodium Chloride Flush 3 ML SYRINGE IVFLUSH ×2 (00:39→07:50)
[2023-02-18 03:15] VITALS: BP 140/90; PULSE 67; RESP 18; TEMP 36.6; O2SAT 95
[2023-02-18] MEDS: cefTRIAXone sodium 1 GM in 0.9 % Sodium Chloride 50 ML IV (07:50)
[2023-02-18] MEDS: Finasteride 5 MG TABLET PO (07:51)
[2023-02-18] MEDS: Mirabegron 25 MG TAB.ER.24H PO (07:51)
[2023-02-18] MEDS: Metoprolol Tartrate 50 MG TABLET PO ×2 (07:51→20:56)
[2023-02-18] MEDS: Enoxaparin Sodium 40 MG/0.4 ML SYRINGE SUBCUT (07:51)
[2023-02-18] MEDS: Atorvastatin Calcium 40 MG TABLET PO (07:51)
[2023-02-18 08:00] VITALS: BP 148/70; PULSE 76; RESP 20; TEMP 36.3; O2SAT 95
--- NOTE | 2023-02-18 10:37 | HO.PM.IMPN ---
Subjective Subjective Date of Service: 02/18/23 Interval History: f/u on metabolic encephalopathy, uti interval history: continue to make progress, no fever Physical Exam Vital Signs: Vital Signs: Last Vital Signs Temp 97.4 F 02/18/23 08:00 Pulse 76 02/18/23 08:00 Resp 20 02/18/23 08:00 BP 148/70 H 02/18/23 08:00 Pulse Ox 95 02/18/23 08:00 O2 Del Method Room Air 02/18/23 08:00 BMI result Body Mass Index 26.4 Const: Other: General: AO X 2, no acute distress Resp: CTA bilateral CVS: S1,S2,RRR GI: +BS, NT, no distention Skin: No rash Neuro: chronic left sided weakness, unchanged Psych: appropriate affect Objective Data Active Medications Acetaminophen (Acetaminophen 325 Mg Tablet) 650 mg PO Q6H PRN PRN Reason: Pain, Mild (Pain Scale 1-3) Last Admin: 02/17/23 07:32 Dose: 650 mg Documented By: VASYL Atorvastatin Calcium (Atorvastatin Calcium 40 Mg Tablet) 40 mg PO DAILY [facility] Last Admin: 02/18/23 07:51 Dose: 40 mg Documented By: ILIA Enoxaparin Sodium (Enoxaparin Sodium 40 Mg/0.4 Ml Syringe) 40 mg SUBCUT DAILY [facility] Last Admin: 02/18/23 07:51 Dose: 40 mg Documented By: ILIA Finasteride (Finasteride 5 Mg Tablet) 5 mg PO DAILY [facility] Last Admin: 02/18/23 07:51 Dose: 5 mg Documented By: ILIA Ceftriaxone Sodium 1 gm/ (Sodium Chloride) 50 mls @ 100 mls/hr IV Q24H [facility] Last Infusion: 02/18/23 08:31 Dose: 0 mls/hr Documented By: ILIA Magnesium Hydroxide (Milk Of Magnesia 30 Ml Oral.Susp) 30 ml PO DAILY PRN PRN Reason: Constipation Metoprolol Tartrate (Metoprolol Tartrate 50 Mg Tablet) 50 mg PO BID [facility]; Protocol Last Admin: 02/18/23 07:51 Dose: 50 mg Documented By: ILIA Mirabegron (Mirabegron 25 Mg Tab.Er.24h) 25 mg PO DAILY [facility] Last Admin: 02/18/23 07:51 Dose: 25 mg Documented By: ILIA Non-Formulary Medication (Methenamine Hippurate) 1 gm PO daily [facility] Ondansetron HCl (Ondansetron Hcl 4 Mg/2 Ml Vial) 4 mg IVPUSH Q8H PRN PRN Reason: Nausea and Vomiting Sodium Chloride (0.9 % Sodium Chloride Flush 3 Ml Syringe) 3 ml IVFLUSH QSHIFT [facility] Last Admin: 02/18/23 07:50 Dose: 3 ml Documented By: ILIA Labs 02/15/23 16:24 02/15/23 16:24 Microbiology Microbiology Results: Microbiology 02/15/23 16:25 Blood Culture - Preliminary Blood - Venous No growth after 48 hours. 02/15/23 16:37 Blood Culture - Preliminary Blood - Venous No growth after 48 hours. 02/15/23 Unknown Urine Culture - Final Urine Catheterized - Dowling Catheter Escherichia coli Assessment and Plan (1) Acute UTI: Status: Acute (2) Acute metabolic encephalopathy: Status: Acute Plan 72 yo M with a PMH of BPH, for follicular lymphoma with bone marrow involvement, CVA with left leg weakness, hypertension, hyperlipidemia , recurent ecoli uti here with hospitalization for UTI here with AMS, weakness fever, and and found to have sepsis d/t UTI 1/Metabolic encephalopathy d/t UTI, now at baseline -treating underlying UTI 2/UTI -urine culture e coli sens to ceftriaxone -continue IV ceftriaoxone since 02/15, change to ceftin at discharge for 10 days 3/? weakness, exam doesn't appear particularly different from past presentation, no new stroke, I think weakness related to UTI and no further testing at this time 4. HTN--resume metoprolol 5. BPH? finasteride 6. HLD--Lipitor 7. 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 Quality Stroke Does the patient have a stroke diagnosis?: No VTE Prior VTE?: No VTE Risk Level:: Medical - moderate - high VTE Device Contraindication: Treatment Not Indicated VTE Drug Contraindication: N/A - Med Ordered
[2023-02-18 12:00] VITALS: BP 153/90; PULSE 68; RESP 20; TEMP 36.9; O2SAT 97
[2023-02-18 15:33] VITALS: BP 150/60; PULSE 72; RESP 20; TEMP 37.1; O2SAT 96
[2023-02-18 19:32] VITALS: BP 160/60; PULSE 87; RESP 20; TEMP 37; O2SAT 95
[2023-02-19 03:22] VITALS: BP 139/91; PULSE 60; RESP 16; TEMP 36.4; O2SAT 96
[2023-02-19 07:39] VITALS: BP 139/91; PULSE 60; O2SAT 96
[2023-02-19 08:00] VITALS: BP 139/88; PULSE 67; RESP 20; TEMP 36.5; O2SAT 97
[2023-02-19] MEDS: Enoxaparin Sodium 40 MG/0.4 ML SYRINGE SUBCUT (09:05)
[2023-02-19] MEDS: Finasteride 5 MG TABLET PO (09:05)
[2023-02-19] MEDS: 0.9 % Sodium Chloride Flush 3 ML SYRINGE IVFLUSH ×2 (09:05→15:34)
[2023-02-19] MEDS: Metoprolol Tartrate 50 MG TABLET PO (09:05)
[2023-02-19] MEDS: Mirabegron 25 MG TAB.ER.24H PO (09:05)
[2023-02-19] MEDS: Atorvastatin Calcium 40 MG TABLET PO (09:05)
[2023-02-19] MEDS: cefTRIAXone sodium 1 GM in 0.9 % Sodium Chloride 50 ML IV (09:06)
[2023-02-19 12:00] VITALS: RESP 20
--- NOTE | 2023-02-19 12:38 | MHC.CM.PN ---
Per PT, recommendation given for STR. This CM spoke with pts son Kamar and he is in agreement as long as its [facility] or [facility] as a second choice, otherwise he would prefer home services for his father. Referral for the 2 STR choices sent via careport. CM will continue to follow for discharge.
--- NOTE | 2023-02-19 13:33 | MHC.CM.PN ---
[facility] has an available bed for pt and can accept him there today for STR. Transportation via [facility] at 4pm. Pts son Kamar updated and in agreement with plan, pt aware and in agreement.
--- NOTE | 2023-02-19 14:16 | PM.DS ---
DS: Providers Provider Date of Service: 02/19/23 Date of admission: 02/15/23 17:01 Date of discharge: 02/19/23 Primary care physician: Esthela Carrillo MD Consults: 02/15/23 15:34 Consult to Neurology Stat Consulting Provider: [facility] Reason for consultation: stroke like symptoms Has provider been notified: No Attending physician on discharge: Misael Cervantes DS: Diagnosis Discharge Diagnosis (1) Acute UTI: Status: Acute (2) Acute metabolic encephalopathy: Status: Acute DS: Summary Hospital Course Hospital Course: 72 yo M with a PMH of BPH, for follicular lymphoma with bone marrow involvement, CVA with chronic left leg weakness, hypertension, hyperlipidemia , frequent ?hospitalization for Ecoli UTIs with encephalopathy, last epside in October 2022. He lives with his son who brought him to be evluated for being confused? and maybe weaker that usual on the left side. At baseline he is not very coherent? and so not able to give any detail history.? He has a fever of 102,? HR up to 102,? WBC is normal, UA + for UTI, , CXR reviewed by me with no acute finding. Hospital course: Patient admitted to the hospital because of toxic metabolic encephalopathy secondary to UTI: Patient was started on IV ceftriaxone seems to be improved significantly, urine culture grew E coli sensitive to ceftriaxone, subsequently switched to p.o. Ceftin upon discharge. Mental status seems to be improved significantly now near baseline. Patient is generalized weakness, exam doesn't appear particularly different from past presentation, no new stroke, weakness thought to be related to UTI and no further testing at this time seen by PT recommended SNF. plan: Complete the course of antibiotics as above for 10 days. Patient go to rehab. Assessment plan coordination time spent 50 minute. Time Spent with Patient Time attestation: Total time managing care of this patient today ____ minutes. Discharge coordination time: Greater than 30 minutes Quality: Safe Use of Opioids Does Pt have an Active Cancer Diagnosis on the Problem List?: No Quality: Stroke Does the patient have a stroke diagnosis?: No Physical Exam Vital Signs: Vital Signs: Last Vital Signs Temp 97.7 F 02/19/23 08:00 Pulse 67 02/19/23 08:00 Resp 20 02/19/23 08:00 BP 139/88 02/19/23 08:00 Pulse Ox 97 02/19/23 08:00 O2 Del Method Room Air 02/19/23 08:00 BMI result Body Mass Index 26.4 General: AO X 3( near baseline), no acute distress Resp:? CTA bilateral CVS: S1,S2,RRR GI: +BS, NT, no distention Skin: No rash Neuro:? chronic left sided weakness, unchanged Psych: appropriate affect DS: Data Data Completed and Pending Completed studies during hospitalization [Text1]: Procedures Insertion of Infusion Device into Upper Vein, Percutaneous Approach (11/18/22) Labs on day of discharge: Preliminary micro results at discharge 02/15/23 16:25 Blood Culture - Preliminary Blood - Venous No growth after 48 hours. 02/15/23 16:37 Blood Culture - Preliminary Blood - Venous No growth after 48 hours. Discharge Plan Discharge Anticipated Discharge Date/Time: 02/19/23 13:48 Patient Disposition: Xfer SNF Discharge Diagnosis: Toxic metabolic encephalopathy secondary to UTI, generalized weakness. Referrals: [facility] [Outside] - 1 Week Physician,Esau J [Physician] - 1 Week Discharge Medications: New cefuroxime axetil 250 mg tablet 250 mg PO Q12H Qty: 20 0RF Continued (DME) Depend Underwear For Men Cosmo- Misc See Rx Instructions .MEDSUPPLY Qty: 64 11RF Rx Instructions: As directed-size sm/med (DME) Washable bed pad Medium See Rx Instructions .Route .MEDSUPPLY Qty: 10 0RF Rx Instructions: As directed atorvastatin 40 mg tablet 40 mg PO DAILY Qty: 90 3RF finasteride 5 mg tablet 5 mg PO DAILY 90 Days Qty: 90 1RF Rx Instructions: Take medication alternating calendar months metoprolol tartrate 50 mg tablet 50 mg PO BID Qty: 180 3RF mirabegron 25 mg tablet extended release 24 hr 25 mg PO DAILY 30 Days Qty: 30 1RF methenamine hippurate 1 gram tablet 1 g PO daily 90 Days Qty: 90 1RF Discharge Orders: Discharge Order (Routine); Ordered 02/19/23 Ordered By: Misael Cervantes Diet: Advance to usual diet Activity on Discharge: As tolerated Stand Alone Forms: Patient Portal Discharge page Care Plan Goals: Patient admitted to the hospital because of toxic metabolic encephalopathy secondary to UTI: Patient was started on IV ceftriaxone seems to be improved significantly, urine culture grew E coli sensitive to ceftriaxone, subsequently switched to p.o. Ceftin upon discharge. Mental status seems to be improved significantly now near baseline. Patient is generalized weak seen by PT recommended SNF. Health Concerns: as above. Plan of Treatment: as above. Assessment: as above.
[2023-02-19 15:04] VITALS: BP 117/80; PULSE 69; RESP 20; TEMP 36.1; O2SAT 95
--- NOTE | 2023-02-22 13:48 | P.CDIM_ITS ---
PROVIDER RESPONSE TEXT: To clarify, the appropriate diagnosis supported by the clinical indicators: Other (explain): no sepsis QUERY TEXT: PHYSICIAN'S DOCUMENTATION REQUEST Date of Query: 02/22/2023 11:50 AM EDT Patient Name: Joseph Richard Admit Date: 02/15/2023 Dear Misael Cervantes, A review of the medical record indicates additional documentation may be needed. Please review below and update the documentation accordingly. Clinical Indicators: The diagnosis of Sepsis was documented on 02/15/23 but is not consistently noted in subsequent documen tation. Please clarify the following: Diagnosis of Sepsis was present on admission and is now resolved Diagnosis of Sepsis was present on admission and is still being monitored, evaluated, or treated Diagnosis of Sepsis was ruled out Diagnosis of Sepsis is still a likely, suspected, probable diagnosis Other (explain)Clinically unable to determine (explain)Thank you, Roselia Cardozo RN Use of terms such as suspected, likely, concern for, or probable (associated with a specific diagnosi s that is being evaluated, monitored, or treated as if it exists) are acceptable and can be coded in the inpatient se tting, when documented at the time of discharge. Please use your independent medical judgment in providing your response. THIS QUERY IS PART OF THE PERMANENT MEDICAL RECORD
== END 2023-02-19 16:06 | disposition skilled nursing facility (03) | DRG 689 ==
LOC: HO.ED 17:42 → HO.EDOVER 17:58 → HO.IMC 18:00
PROVIDERS: Admitting Provider Internal Medicine; Emergency Provider Emergency Medicine; PCP Internal Medicine; Responsible Provider Internal Medicine; Visit Provider Internal Medicine
DX: N39.0 Urinary tract infection, site not specified (principal); G92.8 Other toxic encephalopathy; D69.3 Immune thrombocytopenic purpura; I69.344 Monoplegia of lower limb following cerebral infarction affecting left non-dominant side; Z85.72 Personal history of non-Hodgkin lymphomas; B96.20 Unspecified Escherichia coli [E. coli] as the cause of diseases classified elsewhere; F03.90 Unspecified dementia, unspecified severity, without behavioral disturbance, psychotic disturbance, mood disturbance, and anxiety; E78.5 Hyperlipidemia, unspecified; Z79.899 Other long term (current) drug therapy
CPT/HCPCS: 36415; 70450; 70496; 70498; 71045; 80048; 80307; 81001; 81003; 82947; 83605; 83735; 84100; 84443; 85025; 85610; 85730; 87040; 87086; 87088; 87186; 93005; 97162; 99285; J0696; J1650; Q9967

== ENCOUNTER 2023-03-03 21:58 | Emergency (ER) | payer MEDICARE, MEDICAID, SELFPAY ==
[2023-03-03 22:14] VITALS: BP 122/78; BP 151/89; PULSE 60; PULSE 66; RESP 14; TEMP 36.8; O2SAT 97; O2SAT 98; BMI 25.5
[2023-03-03 22:43] LABS: MANUAL DIFF FLAG NO
[2023-03-03 22:45] LABS: Basophils Percent Auto 0.6 % (0-2); Eosinophils Absolute Auto 0.1 X10*3/uL (0.0-0.4); Eosinophils Percent Auto 1.2 % (0-4); Hematocrit 40.6 % (42.0-52.0); Hemoglobin 13.8 g/dl (14.0-18.0); Imm Gran Abs Auto 0.02 X10*3/uL (0.00-0.03); Imm Gran Pct Auto 0.3 % (0.0-0.4); Lymphocytes Absolute Auto 1.1 X10*3/uL (1.2-4.9); Lymphocytes Percent Auto 16.5 % (20-40); Mean Corpuscular Hemoglobin 27.9 pg (27.0-33.0); Mean Platelet Volume 9.9 fL (9.4-12.4); Monocytes Absolute Auto 0.5 X10*3/uL (0.1-1.2); Monocytes Percent Auto 7.9 % (2-11); Neutrophils Absolute Auto 4.7 x10*3/uL (2.0-8.3); Neutrophils Percent Auto 73.5 % (45-73); Platelet Count 167 X10*3/uL (160-400); Red Blood Count 4.95 X10*6/uL (4.60-5.80); Red Cell Distribution Width 14.2 % (11.0-16.0); White Blood Count 6.4 X10*3/uL (4.8-10.8)
--- NOTE | 2023-03-03 22:46 | PC.NURSE ---
Addendum entered by Tyler Devlin RN 03/03/23 23:28: During conversation with son, son indicated he has been taking care of pt for past 4 years at home, has appropriate facilities in home to care for his father. As of 2328, pt negative work up, pt sone coming to take pt home, Original Note: Assumed care of pt. [facility] Pt assessed as shown. pt son came to facility requested to take pt home. pt son as identified is HCP. provider requested to discuss with son. plan to of care to obtain labs and urine, determine if medical concners exist, and if not sneding pt home in care of son, otherwise treating with continued determinatino of further plans.
[2023-03-03 22:51] LABS: Appearance Urine Clear; Color Urine Yellow; Glucose Urine UA Negative (Negative); Leukocyte Esterase Urine Negative (Negative); Nitrite Urine Negative (Negative); PH 5.5 (5.0-9.0); Urine Blood Negative (Negative); Urine Ketones Negative (Negative); Urine Protein Negative (Neg-Trace)
[2023-03-03 23:00] LABS: Alanine Aminotransferase 31 U/L (0-40); Albumin Level 3.8 g/dL (3.5-5.0); Alkaline Phosphatase 94 U/L (39-117); Anion Gap 13 (12-20); Aspartate Amino Transferase 25 U/L (5-37); Bilirubin Total 0.9 mg/dL (0.0-1.0); Blood Urea Nitrogen 16 mg/dL (9-16); Calcium 8.7 mg/dL (8.4-10.2); Carbon Dioxide 26 mmol/L (22-29); Chloride 107 mmol/L (96-108); Creatinine Clr Calc Pharmacy 56.2; Estimated Glomerular Filt Rate > 60; Glucose Random 105 mg/dL (60-115); Potassium 3.8 mmol/L (3.3-5.1); Sodium 142 mmol/L (135-145); Total Protein 5.9 g/dL (6.5-8.0)
--- NOTE | 2023-03-03 23:13 | ED_ITS ---
HPI - Altered Mental Status General Chief Complaint: Altered Mental Status Stated Complaint: fall risk ams Time Seen by Provider: 03/03/23 22:20 History of Present Illness HPI narrative: Patient is 72 years old presented today from [facility] with an acute episode of agitation. Scented for further evaluation. Patient had a history of urinary tract infection. Went to senior living [facility]hab. Patient denies any chest pain. No shortness of breath. Has no specific complaints. Patient's son is the healthcare proxy. Is not comfortable with the care at [facility], wants the patient to go home with him. He states that he has all the material and ramp hour he needs. He stated that he is the healthcare proxy. The patient has been living with him in the past. Related Data Previous Rx's Medication Instructions Recorded Depend Underwear For Men Alexy #64 ea 12/01/21 (diaper,brief,adult,disposable) Washable bed pad #10 ea 12/01/21 atorvastatin 40 mg tablet 40 mg PO DAILY #90 tabs 08/23/22 finasteride 5 mg tablet 5 mg PO DAILY 90 days #90 tabs 10/11/22 methenamine hippurate 1 gram tablet 1 g PO daily 90 days #90 tabs 10/11/22 mirabegron 25 mg tablet,extended 25 mg PO DAILY 30 days #30 tabs 10/11/22 release 24 hr metoprolol tartrate 50 mg tablet 50 mg PO BID #180 tabs 02/15/23 cefuroxime axetil 250 mg tablet 250 mg PO Q12H #20 tabs 02/19/23 Allergies Allergy/AdvReac Type Severity Reaction Status Date / Time No Known Allergies Allergy Verified 12/14/22 13:44 [No Known Allergies*] Review of Systems Review of Systems: No fever no chills no chest pain or shortness Yes all other systems are reviewed and are negative [facility] Past Medical History Attestation statement: The following information was validated with the patient. Medical History Abnormal computed tomography angiography (CTA) Annual physical exam BPH (benign prostatic hyperplasia) CVA (cerebral vascular accident) Dementia Follicular lymphoma Hearing loss History of CVA (cerebrovascular accident) History of CVA (cerebrovascular accident) HTN (hypertension) Hyperglycemia Hyperlipidemia Hypertension Lumbar spinal stenosis Recurrent UTI Syncope Surgical History H/O colonoscopy No pertinent past surgical history Family History Family History Father Colon cancer HTN (hypertension) Brother Non-Hodgkin lymphoma HTN (hypertension) Sister HTN (hypertension) Mother HTN (hypertension) TIA (transient ischemic attack) Social History Social History Household Members: Children Household Members Other:: He mentioned 2 dogs and a person, but not answering now. Housing: House Housing Other:: Unsure if this is correct. Are you a primary neonatal intensive care nurse to a significant other at home: No Do you presently have visiting nurse or other home services: Yes Unable to assess alcohol history related to: Unknown Alcohol intake: never Patient Tobacco Use Status: Never used Tobacco Smoked in Last 30 Days: No e-Cigarette/Vaping Use: Never Used Use of substances other than those prescribed or required for medical reasons: No Advance Directives: Yes Advance Directives on File: Yes Advance Directives Date on File: 08/29/22 service: No Current occupational status: retired Cognitive needs: No Hearing needs: Yes Vision needs: No Physical Exam ED Vital Signs: Vital Signs - 24 hr 03/03/23 22:14 Temperature 98.2 F Pulse Rate 60 Respiratory Rate 14 Blood Pressure 151/89 H Pulse Oximetry 97 Oxygen Delivery Method Room Air BMI result Body Mass Index 25.5 Appearance: Alert. Oriented X3. No acute distress. Eyes: Pupils equal, round and reactive to light. ENT: Pharynx normal. Neck: Normal inspection. Neck supple. No lymph nodes noted. No crepitus CVS: Normal heart rate and rhythm. Pulses normal. Normal S1 and S2 Respiratory: No respiratory distress. Breath sounds normal. No Wheezing. No rales Abdomen: Soft and nontender. No rigidity. No distention. good BS x4 Skin: Skin warm and dry. Normal skin color. Normal skin turgor. Extremities: No lower extremity edema. Neurovascular intact to all extremities. No Lacerations. No Rash Neuro: Oriented X 3. No motor deficit. No sensory deficit. Moving all extermities. No slurred speech NIH Stroke Scale Internal: Initial- Upon Arrival Time: 23:17 Level of Consciousness: Alert Level of Consciousness Questions: Answers both questions correctly Level of Consciousness Commands: Performs both tasks correctly Best Gaze: Normal Visual: No visual loss Facial Palsy: Normal Motor Arm (Right): No drift Motor Arm (Left): No drift Motor Leg (Right): No drift Motor Leg (Left): No drift Limb Ataxia: Absent Sensory: Normal Best Language: No aphasia Dysarthia: Normal Extinction and Inattention: No abnormality Score: 0 Medical Decision Making Medical Decision Making MDM Narrative: Patient's CBC was normal. Electrolytes are normal. LFTs are normal. Urine showed no signs of infection. Patient is awake alert oriented x3 here emergency department. Family wants to take him home. Son is the healthcare proxy. Will discharge patient to the care of his son. Patient is in stable condition. Differential Diagnosis Differential Diagnoses: The differential diagnosis associated with the presentation includes Hypoglycemia, urinary tract infection, electrolyte disturbance, Admission/Observation Consideration of admission/observation: Escalation of care including adm ission/observation considered Lab Data [facility] Lab Attestation statement: I reviewed the patient's lab results. 03/03/23 22:39 03/03/23 22:39 Labs: Lab Results 03/03/23 03/03/23 03/03/23 Range/Units 22:39 22:39 22:45 WBC 6.4 (4.8-10.8) X10*3/uL RBC 4.95 (4.60-5.80) X10*6/uL Hgb 13.8 L (14.0-18.0) g/dl Hct 40.6 L (42.0-52.0) % MCV 82.0 (80.0-98.0) fL MCH 27.9 (27.0-33.0) pg MCHC 34.0 (31.0-36.0) g/dl RDW 14.2 (11.0-16.0) % Plt Count 167 (160-400) X10*3/uL MPV 9.9 (9.4-12.4) fL Immature Gran % (Auto) 0.3 (0.0-0.4) % Neut % (Auto) 73.5 H (45-73) % Lymph % (Auto) 16.5 L (20-40) % [place] % (Auto) 7.9 (2-11) % Eos % (Auto) 1.2 (0-4) % Baso % (Auto) 0.6 (0-2) % Lymph # (Auto) 1.1 L (1.2-4.9) X10*3/uL [place] # (Auto) 0.5 (0.1-1.2) X10*3/uL Eos # (Auto) 0.1 (0.0-0.4) X10*3/uL Baso # (Auto) 0.0 (0.0-0.2) X10*3/uL Abs Immat Gran (auto) 0.02 (0.00-0.03) X10*3/uL Absolute Neuts (auto) 4.7 (2.0-8.3) x10*3/uL Absolute Nucleated RBC 0.000 (0.0-0.012) X10*3/uL Nucleated RBC % (auto) 0.0 (0.0-0.2) /100WBC Sodium 142 (135-145) mmol/L Potassium 3.8 (3.3-5.1) mmol/L Chloride 107 (96-108) mmol/L Carbon Dioxide 26 (22-29) mmol/L Anion Gap 13 (12-20) BUN 16 (9-16) mg/dL Creatinine 1.17 (0.5-1.4) mg/dL Estim Creat Clear Calc 56.2 Estimated GFR > 60 Random Glucose 105 (60-115) mg/dL Calcium 8.7 (8.4-10.2) mg/dL Total Bilirubin 0.9 (0.0-1.0) mg/dL AST 25 (5-37) U/L ALT 31 (0-40) U/L Alkaline Phosphatase 94 (39-117) U/L Total Protein 5.9 L (6.5-8.0) g/dL Albumin 3.8 (3.5-5.0) g/dL Urine Color Yellow Urine Appearance Clear Urine pH 5.5 (5.0-9.0) Ur Specific [place] 1.020 (1.005-1.025) Urine Protein Negative (Neg-Trace) mg/dL Urine Glucose (UA) Negative (Negative) mg/dL Urine Ketones Negative (Negative) mg/dL Urine Blood Negative (Negative) Urine Nitrite Negative (Negative) Ur Leukocyte Esterase Negative (Negative) Independent Historian Clinical information obtained from an independent historian. History obtained from or confirmed by: Other Patient's son External Record Review External record reviewed: Inpatient record Discharge Plan Discharge Clinical Impression: Agitation Patient Disposition: Home, Self-Care Prescriptions: No Action (DME) Depend Underwear For Men Cosmo- Misc See Rx Instructions .MEDSUPPLY Qty: 64 11RF Rx Instructions: As directed-size sm/med (DME) Washable bed pad Medium See Rx Instructions .Route .MEDSUPPLY Qty: 10 0RF Rx Instructions: As directed atorvastatin 40 mg tablet 40 mg PO DAILY Qty: 90 3RF finasteride 5 mg tablet 5 mg PO DAILY 90 Days Qty: 90 1RF Rx Instructions: Take medication alternating calendar months metoprolol tartrate 50 mg tablet 50 mg PO BID Qty: 180 3RF cefuroxime axetil 250 mg tablet 250 mg PO Q12H Qty: 20 0RF mirabegron 25 mg tablet extended release 24 hr 25 mg PO DAILY 30 Days Qty: 30 1RF methenamine hippurate 1 gram tablet 1 g PO daily 90 Days Qty: 90 1RF
--- NOTE | 2023-03-03 23:23 | PC.NURSE ---
pt cleared for discharge, son contacted and stated will be here in approx 30 min for grape picker.
[2023-03-03 23:42] VITALS: BP 129/77; PULSE 57; RESP 14; TEMP 36.7; O2SAT 98
== END 2023-03-04 00:09 | disposition home or self-care (01) ==
PROVIDERS: Emergency Provider Emergency Medicine Emergency Medical Services; PCP Family Medicine
DX: R45.1 Restlessness and agitation (principal); N39.0 Urinary tract infection, site not specified; Z79.899 Other long term (current) drug therapy
CPT/HCPCS: 36415; 80053; 81003; 85025; 99283; 99284

== ENCOUNTER 2023-04-02 22:41 | Inpatient (IN) | payer MEDICARE, MEDICAID, SELFPAY ==
--- NOTE | ~2023-04-02 | XR_ITS ---
EXAMINATION: XR CHEST CLINICAL INFORMATION: Shortness of breath COMPARISON: 02/15/2023 TECHNIQUE: Frontal view of the chest was obtained. FINDINGS: Lung volumes are symmetric. No focal consolidation is seen. No evidence of pneumothorax, pleural effusion, or pulmonary edema. The cardiomediastinal contour is unremarkable. No acute osseous findings are seen. XR/XR chest 1V IMPRESSION: No acute cardiopulmonary findings.
--- NOTE | ~2023-04-02 | CT_ITS ---
EXAMINATION: CT HEAD WITHOUT CONTRAST CLINICAL INFORMATION: Altered mental status COMPARISON: 02/15/2023 TECHNIQUE: Contiguous axial imaging was performed from the skull base to vertex without intravenous administration of contrast. This CT examination was performed using dose optimization techniques as appropriate, variously including the following: *Automated exposure control *Adjustment of mA and/or kV according to patient size (this includes techniques or standardized protocols for targeted exams where dose is matched to indication/reason for exam; i.e. extremities or head) *Use of iterative reconstruction technique DLP: 1535 mGy-cm FINDINGS: There is no evidence of acute intracranial hemorrhage or territorial infarction. No abnormal mass-effect or midline shift is seen. [place] to white matter differentiation is well preserved. No extra-axial fluid collections are identified. The ventricles are normal in size. There is moderate periventricular white matter hypoattenuation consistent with chronic small vessel ischemic disease. Mild volume loss is noted. The osseous structures and soft tissues are normal. The mastoid air cells and visualized portions of the paranasal sinuses are well-aerated. CT/CT head/brain wo IV con IMPRESSION: No acute intracranial pathology. Chronic small vessel ischemic disease and volume loss.
--- NOTE | ~2023-04-02 | CT_ITS ---
EXAMINATION: CT CHEST WITHOUT CONTRAST CLINICAL INFORMATION: Hypoxia COMPARISON: CT abdomen and pelvis earlier this morning, chest radiograph yesterday, CT chest 09/24/2019 TECHNIQUE: Multidetector volumetric CT imaging of the chest was done. Axial MIP volume rendering provided. Sagittal and coronal reformatted images were obtained. This CT examination was performed using dose optimization techniques as appropriate, variously including the following: *Automated exposure control *Adjustment of mA and/or kV according to patient size (this includes techniques or standardized protocols for targeted exams where dose is matched to indication/reason for exam; i.e. extremities or head) *Use of iterative reconstruction technique DLP: 350 mGy-cm FINDINGS: There is marked motion artifact limiting assessment. LUNGS: There is a small ill-defined area of infiltrate/mass in the right upper lobe (7:106) not optimally evaluated because of motion artifact. This measures about 1 cm. Bibasilar dependent atelectasis is present. No lung masses are seen. MEDIASTINUM: Thyroid appears normal. No mediastinal or hilar lymphadenopathy is seen. Heart size normal. CORONARY ARTERY CALCIFICATION: Extensive PLEURA: There is no pleural effusion. No pleural mass or thickening. AXILLA: No lymphadenopathy. UPPER ABDOMEN: Benign hepatic cysts are again seen and unchanged. OSSEOUS STRUCTURES: Unremarkable. CT/CT chest wo IV con IMPRESSION: Small ill-defined area of infiltrate/mass in the right upper lobe with bibasilar atelectasis. Follow-up CT scan of the chest is recommended in 3 months. Fleischner guidelines were followed.
--- NOTE | ~2023-04-02 | CT_ITS ---
EXAMINATION: CT ABDOMEN AND PELVIS WITHOUT CONTRAST CLINICAL INFORMATION: Altered mental status, vomiting, hematuria COMPARISON: 12/03/2021 TECHNIQUE: Multidetector volumetric imaging was performed from the superior aspect of the liver through the pubic symphysis. Sagittal and coronal reformatted images were obtained on the technologist's workstation. This CT examination was performed using dose optimization techniques as appropriate, variously including the following: *Automated exposure control *Adjustment of mA and/or kV according to patient size (this includes techniques or standardized protocols for targeted exams where dose is matched to indication/reason for exam; i.e. extremities or head) *Use of iterative reconstruction technique DLP: 1535 mGy-cm FINDINGS: LUNG BASES: Coronary artery calcifications are present. Dependent pulmonary opacities suggest atelectasis. LIVER, GALLBLADDER, AND BILIARY TREE: The liver is normal in size, shape, and attenuation. Few low-density hepatic lesions favor cysts. No biliary ductal dilatation is present. The gallbladder is unremarkable with no evidence of radiopaque gallstones, gallbladder wall thickening, or obvious pericholecystic inflammatory changes. PANCREAS: Unremarkable. SPLEEN: Unremarkable. ADRENAL GLANDS: Unremarkable. KIDNEYS AND URETERS: No hydronephrosis or obstructing calculus bilaterally. Nonspecific bilateral perinephric stranding. Small left renal cysts; no follow-up recommended. BLADDER: Minimally distended with Dowling catheter in place. Thick-walled appearance noted. There is a small left-sided bladder diverticulum. GASTROINTESTINAL TRACT: No evidence of bowel obstruction. No significant bowel wall thickening is seen though assessment in some segments is limited due to luminal collapse. The appendix is unremarkable. No free fluid or free air is seen. ABDOMINAL WALL: No significant hernia is appreciated. LYMPH NODES: Redemonstrated retroperitoneal adenopathy to the left of the aorta measuring approximately 1.5 cm in short axis dimension, similar to prior. Few additional mildly prominent retroperitoneal lymph nodes are also similar to prior. VASCULAR: There is atherosclerotic calcification along the aorta and iliac arteries. PELVIC VISCERA: The prostate gland is enlarged, measuring 6.0 cm in transverse diameter. OSSEOUS STRUCTURES: Degenerative changes are noted in the spine. Partially visualized fluid density structure in the upper right thigh adductor musculature measuring 2.7 x 1.9 cm on image 104/104. CT/CT abdomen pelvis wo IV con IMPRESSION: 1. Thick-walled appearance of the urinary bladder, which could be due to chronic outlet obstruction versus cystitis in the proper clinical setting. 2. Partially visualized fluid density structure in the upper right thigh adductor musculature measuring 2.7 x 1.9 cm. This is of uncertain etiology and could be further assessed with MRI. 3. Redemonstrated retroperitoneal adenopathy, similar to 12/03/2021. 4. Enlarged prostate gland.
--- NOTE | 2023-04-02 22:53 | ED_ITS ---
HPI - Altered Mental Status General Chief Complaint: Altered Mental Status Stated Complaint: ams, sob, per ems Time Seen by Provider: 04/02/23 22:53 Source: EMS Mode of arrival: EMS History of Present Illness HPI narrative: Patient DNR DNI with history of BPH follicle lymphoma involving the bone marrow, CVA with chronic left leg weakness, hypertension, hyperlipidemia, frequent hospitalization for UTI with encephalopathy last admission was on 02/19 8 with the coli today was brought by EMS for last few hours patient vomited few times gasping for air and unresponsive Related Data Previous Rx's Medication Instructions Recorded Depend Underwear For Men Alexy #64 ea 12/01/21 (diaper,brief,adult,disposable) Washable bed pad #10 ea 12/01/21 atorvastatin 40 mg tablet 40 mg PO DAILY #90 tabs 08/23/22 finasteride 5 mg tablet 5 mg PO DAILY 90 days #90 tabs 10/11/22 methenamine hippurate 1 gram tablet 1 g PO daily 90 days #90 tabs 10/11/22 mirabegron 25 mg tablet,extended 25 mg PO DAILY 30 days #30 tabs 10/11/22 release 24 hr metoprolol tartrate 50 mg tablet 50 mg PO BID #180 tabs 02/15/23 Allergies Allergy/AdvReac Type Severity Reaction Status Date / Time No Known Allergies Allergy Verified 03/08/23 13:44 [No Known Allergies*] Review of Systems Review of Systems: Yes Unobtainable due to mental status PMFSH Past Medical History Medical History Abnormal computed tomography angiography (CTA) Annual physical exam BPH (benign prostatic hyperplasia) CVA (cerebral vascular accident) Dementia Follicular lymphoma Hearing loss History of CVA (cerebrovascular accident) History of CVA (cerebrovascular accident) HTN (hypertension) Hyperglycemia Hyperlipidemia Hypertension Lumbar spinal stenosis Recurrent UTI Syncope Surgical History H/O colonoscopy No pertinent past surgical history Family History Family History Father Colon cancer HTN (hypertension) Brother Non-Hodgkin lymphoma HTN (hypertension) Sister HTN (hypertension) Mother HTN (hypertension) TIA (transient ischemic attack) Social History Social History Household Members: Children Household Members Other:: He mentioned 2 dogs and a person, but not answering now. Housing: House Housing Other:: Unsure if this is correct. Are you a primary ostomy care nurse to a significant other at home: No Do you presently have visiting nurse or other home services: Yes Unable to assess alcohol history related to: Unknown Alcohol intake: never Patient Tobacco Use Status: Never used Tobacco Smoked in Last 30 Days: No e-Cigarette/Vaping Use: Never Used Use of substances other than those prescribed or required for medical reasons: No Advance Directives: Yes Advance Directives on File: Yes Advance Directives Date on File: 08/29/22 service: No Current occupational status: retired Cognitive needs: No Hearing needs: Yes Vision needs: No Physical Exam ED Vital Signs: Vital Signs - 24 hr 04/02/23 23:25 04/03/23 00:06 04/03/23 00:07 Temperature 98.4 F 99.3 F Pulse Rate 116 H 115 H Respiratory Rate 30 H 22 H 17 Blood Pressure 122/80 122/80 Pulse Oximetry 100 100 Oxygen Delivery Method High Flow Nasal Cannula High Flow Nasal Cannula BMI result Body Mass Index 24.4 Appearance: Unresponsive gasping for air Eyes: Pupils mid dilated ENT: Pharynx normal. Oral Mucosa moist Neck: Normal inspection. Neck supple. CVS: Normal heart rate and rhythm. Pulses normal. Respiratory: No respiratory distress. Equal air entry bilateral, no wheezing/rales/rhonchi Abdomen: Soft and nontender. Bowel sounds are present, Skin: Skin warm and dry. Normal skin color. Normal skin turgor. Extremities: No lower extremity edema. No calf tenderness Neuro: obtunded Medications Administered Generic Name Dose Route Start Last Admin Trade Name Freq PRN Reason Stop Dose Admin Lactated Ringer's 1,000 mls @ 100 mls/hr 04/03/23 01:30 04/03/23 01:00 Lr IVCONT 100 mls/hr .Q10H DEONDRE Administration Pantoprazole Sodium 40 mg 04/03/23 06:30 04/03/23 06:33 Pantoprazole Sodium 40 Mg/10 Ml Vial IVPUSH 40 mg BID@0630,1630 DEONDRE Administration Discontinued Medications Generic Name Dose Route Start Last Admin Trade Name Freq PRN Reason Stop Dose Admin Famotidine 20 mg 04/02/23 23:11 04/02/23 23:57 Famotidine/Pf 20 Mg/2 Ml Vial IVPUSH 04/02/23 23:12 20 mg ONCE ONE Administration Sodium Chloride 1,000 mls @ 999 mls/hr 04/02/23 22:55 04/03/23 01:54 Ns IV 04/02/23 23:55 Infused .Q1H1M ONE Infusion Ceftriaxone Sodium 1 gm/ 50 mls @ 100 mls/hr 04/02/23 22:56 04/03/23 00:24 Sodium Chloride IV 04/02/23 23:25 Infused ONCE ONE Infusion Sodium Chloride 1,000 mls @ 999 mls/hr 04/02/23 23:57 04/03/23 01:55 Ns IV 04/03/23 00:57 Infused .Q1H1M ONE Infusion Ondansetron HCl 4 mg 04/02/23 23:11 04/02/23 23:53 Ondansetron Hcl 4 Mg/2 Ml Vial IVPUSH 04/02/23 23:12 4 mg ONCE ONE Administration Medical Decision Making Medical Decision Making MDM Narrative: Patient acute change in mental status workup shows UTI with lactic acidosis with sepsis received IV fluids and IV antibiotics patient DNR DNI initially patient required high-flow oxygen as he was obtunded during stay in the ER patient improved in sensorium able to communicate before admission no more vomiting in the ER. Differential Diagnosis Differential Diagnoses: The differential diagnosis associated with the presentat ion includes Metabolic encephalopathy/sepsis/UTI/pneumonia/CVA Consult Healthcare Provider Management of the patient was discussed with: Hospitalist Lab Data MDM Lab Attestation statement: I reviewed the patient's lab results. 04/03/23 04:58 04/03/23 04:58 Labs: Lab Results 04/02/23 04/02/23 04/02/23 Range/Units 23:00 23:00 23:00 WBC 3.0 L (4.8-10.8) X10*3/uL RBC 5.64 (4.60-5.80) X10*6/uL Hgb 16.1 (14.0-18.0) g/dl Hct 47.1 (42.0-52.0) % MCV 83.5 (80.0-98.0) fL MCH 28.5 (27.0-33.0) pg MCHC 34.2 (31.0-36.0) g/dl RDW 14.9 (11.0-16.0) % Plt Count 142 L (160-400) X10*3/uL MPV 10.5 (9.4-12.4) fL Immature Gran % (Auto) 1.0 H (0.0-0.4) % Neut % (Auto) 87.4 H (45-73) % Lymph % (Auto) 10.2 L (20-40) % [place] % (Auto) 0.7 L (2-11) % Eos % (Auto) 0.0 (0-4) % Baso % (Auto) 0.7 (0-2) % Lymph # (Auto) 0.3 L (1.2-4.9) X10*3/uL [place] # (Auto) 0.0 L (0.1-1.2) X10*3/uL Eos # (Auto) 0.0 (0.0-0.4) X10*3/uL Baso # (Auto) 0.0 (0.0-0.2) X10*3/uL Abs Immat Gran (auto) 0.03 (0.00-0.03) X10*3/uL Absolute Neuts (auto) 2.7 (2.0-8.3) x10*3/uL Absolute Nucleated RBC 0.000 (0.0-0.012) X10*3/uL Nucleated RBC % (auto) 0.0 (0.0-0.2) /100WBC PT 12.2 (10.0-13.1) SEC INR 1.1 (0.9-1.1) Sodium 143 (135-145) mmol/L Potassium 3.6 (3.3-5.1) mmol/L Chloride 108 (96-108) mmol/L Carbon Dioxide 18 L (22-29) mmol/L Anion Gap 21 H (12-20) BUN 20 H (9-16) mg/dL Creatinine 1.37 (0.5-1.4) mg/dL Estim Creat Clear Calc TNP Estimated GFR 51 POC Glucose (60-115) mg/dL Random Glucose 119 H (60-115) mg/dL Lactic Acid (0.5-2.0) mmol/L Calcium 9.2 (8.4-10.2) mg/dL Magnesium 1.9 (1.6-2.6) mg/dL Total Bilirubin 2.3 H (0.0-1.0) mg/dL AST 296 H (5-37) U/L ALT 171 H (0-40) U/L Alkaline Phosphatase 155 H (39-117) U/L Troponin I High Sens (<3.5-35.0) ng/L Total Protein 6.4 L (6.5-8.0) g/dL Albumin 4.1 (3.5-5.0) g/dL Urine Color Urine Appearance Urine pH (5.0-9.0) Ur Specific [place] (1.005-1.025) Urine Protein (Neg-Trace) mg/dL Urine Glucose (UA) (Negative) mg/dL Urine Ketones (Negative) mg/dL Urine Blood (Negative) Urine Nitrite (Negative) Ur Leukocyte Esterase (Negative) Urine RBC (0-2) /HPF Urine WBC (0-5) /HPF Ur Squamous Epith Cells (0-2) /HPF Urine Bacteria (None Seen) Hyaline Casts (0-2) /LPF COVID-19 (JAMAL) (Negative) COVID-19 Clin Com 04/02/23 04/02/23 04/02/23 Range/Units 23:00 23:00 23:31 WBC (4.8-10.8) X10*3/uL RBC (4.60-5.80) X10*6/uL Hgb (14.0-18.0) g/dl Hct (42.0-52.0) % MCV (80.0-98.0) fL MCH (27.0-33.0) pg MCHC (31.0-36.0) g/dl RDW (11.0-16.0) % Plt Count (160-400) X10*3/uL MPV (9.4-12.4) fL Immature Gran % (Auto) (0.0-0.4) % Neut % (Auto) (45-73) % Lymph % (Auto) (20-40) % [place] % (Auto) (2-11) % Eos % (Auto) (0-4) % Baso % (Auto) (0-2) % Lymph # (Auto) (1.2-4.9) X10*3/uL [place] # (Auto) (0.1-1.2) X10*3/uL Eos # (Auto) (0.0-0.4) X10*3/uL Baso # (Auto) (0.0-0.2) X10*3/uL Abs Immat Gran (auto) (0.00-0.03) X10*3/uL Absolute Neuts (auto) (2.0-8.3) x10*3/uL Absolute Nucleated RBC (0.0-0.012) X10*3/uL Nucleated RBC % (auto) (0.0-0.2) /100WBC PT (10.0-13.1) SEC INR (0.9-1.1) Sodium (135-145) mmol/L Potassium (3.3-5.1) mmol/L Chloride (96-108) mmol/L Carbon Dioxide (22-29) mmol/L Anion Gap (12-20) BUN (9-16) mg/dL Creatinine (0.5-1.4) mg/dL Estim Creat Clear Calc Estimated GFR POC Glucose 130 H (60-115) mg/dL Random Glucose (60-115) mg/dL Lactic Acid 4.6 H* (0.5-2.0) mmol/L Calcium (8.4-10.2) mg/dL Magnesium (1.6-2.6) mg/dL Total Bilirubin (0.0-1.0) mg/dL AST (5-37) U/L ALT (0-40) U/L Alkaline Phosphatase (39-117) U/L Troponin I High Sens < 2.7 (<3.5-35.0) ng/L Total Protein (6.5-8.0) g/dL Albumin (3.5-5.0) g/dL Urine Color Urine Appearance Urine pH (5.0-9.0) Ur Specific [place] (1.005-1.025) Urine Protein (Neg-Trace) mg/dL Urine Glucose (UA) (Negative) mg/dL Urine Ketones (Negative) mg/dL Urine Blood (Negative) Urine Nitrite (Negative) Ur Leukocyte Esterase (Negative) Urine RBC (0-2) /HPF Urine WBC (0-5) /HPF Ur Squamous Epith Cells (0-2) /HPF Urine Bacteria (None Seen) Hyaline Casts (0-2) /LPF COVID-19 (JAMAL) (Negative) COVID-19 Clin Com 04/03/23 04/03/23 Range/Units 00:03 00:07 WBC (4.8-10.8) X10*3/uL RBC (4.60-5.80) X10*6/uL Hgb (14.0-18.0) g/dl Hct (42.0-52.0) % MCV (80.0-98.0) fL MCH (27.0-33.0) pg MCHC (31.0-36.0) g/dl RDW (11.0-16.0) % Plt Count (160-400) X10*3/uL MPV (9.4-12.4) fL Immature Gran % (Auto) (0.0-0.4) % Neut % (Auto) (45-73) % Lymph % (Auto) (20-40) % [place] % (Auto) (2-11) % Eos % (Auto) (0-4) % Baso % (Auto) (0-2) % Lymph # (Auto) (1.2-4.9) X10*3/uL [place] # (Auto) (0.1-1.2) X10*3/uL Eos # (Auto) (0.0-0.4) X10*3/uL Baso # (Auto) (0.0-0.2) X10*3/uL Abs Immat Gran (auto) (0.00-0.03) X10*3/uL Absolute Neuts (auto) (2.0-8.3) x10*3/uL Absolute Nucleated RBC (0.0-0.012) X10*3/uL Nucleated RBC % (auto) (0.0-0.2) /100WBC PT (10.0-13.1) SEC INR (0.9-1.1) Sodium (135-145) mmol/L Potassium (3.3-5.1) mmol/L Chloride (96-108) mmol/L Carbon Dioxide (22-29) mmol/L Anion Gap (12-20) BUN (9-16) mg/dL Creatinine (0.5-1.4) mg/dL Estim Creat Clear Calc Estimated GFR POC Glucose (60-115) mg/dL Random Glucose (60-115) mg/dL Lactic Acid (0.5-2.0) mmol/L Calcium (8.4-10.2) mg/dL Magnesium (1.6-2.6) mg/dL Total Bilirubin (0.0-1.0) mg/dL AST (5-37) U/L ALT (0-40) U/L Alkaline Phosphatase (39-117) U/L Troponin I High Sens (<3.5-35.0) ng/L Total Protein (6.5-8.0) g/dL Albumin (3.5-5.0) g/dL Urine Color Yellow Urine Appearance Cloudy Urine pH 5.0 (5.0-9.0) Ur Specific [place] 1.010 (1.005-1.025) Urine Protein 30 (1+) H (Neg-Trace) mg/dL Urine Glucose (UA) Negative (Negative) mg/dL Urine Ketones Negative (Negative) mg/dL Urine Blood Large (3+) H (Negative) Urine Nitrite Negative (Negative) Ur Leukocyte Esterase Large (3+) H (Negative) Urine RBC >20 H (0-2) /HPF Urine WBC >50 H (0-5) /HPF Ur Squamous Epith Cells 0-2 (0-2) /HPF Urine Bacteria 1+ (None Seen) Hyaline Casts 0-2 (0-2) /LPF COVID-19 (JAMAL) Negative (Negative) COVID-19 Clin Com See Note Independent Interpretation I performed an independent interpretation of an: EKG Interpretation: Sinus tachycardia heart rate 132 beats per minute nonspecific ST T wave changes no acute ischemia Discharge Plan Discharge Clinical Impression: Acute metabolic encephalopathy, Sepsis, Acute UTI Patient Disposition: Admitted As Inpatient
--- NOTE | 2023-04-02 22:55 | ECG_ITS ---
Test Reason : AMS Blood Pressure : / mmHG Vent. Rate : 132 BPM Atrial Rate : 132 BPM P-R Int : 144 ms QRS Dur : 068 ms QT Int : 370 ms P-R-T Axes : 045 -03 057 degrees QTc Int : 548 ms Sinus tachycardia Nonspecific ST and T wave abnormality Abnormal ECG When compared with ECG of 15-FEB-2023 16:08, Nonspecific T wave abnormality no longer evident in Inferior leads Referred By: Ravi Simon Electronically Signed By:KRISTEN CLOUD MD
--- NOTE | 2023-04-02 23:12 | PC.NURSE ---
Iv placed, labs collected and sent, pt changed over to hospital atire, ekg, chest xray completed, pt placed on bed side monitor, respiratory at bedside and placed on High Flow. Notified ADRIANA Humphreys.
[2023-04-02 23:20] LABS: MANUAL DIFF FLAG NO
[2023-04-02 23:25] VITALS: PULSE 101; RESP 30; O2SAT 97
[2023-04-02 23:36] LABS: Basophils Percent Auto 0.7 % (0-2); Hematocrit 47.1 % (42.0-52.0); Hemoglobin 16.1 g/dl (14.0-18.0); Imm Gran Abs Auto 0.03 X10*3/uL (0.00-0.03); Lymphocytes Absolute Auto 0.3 X10*3/uL (1.2-4.9); Lymphocytes Percent Auto 10.2 % (20-40); Mean Corpuscular HGB Conc 34.2 g/dl (31.0-36.0); Mean Corpuscular Hemoglobin 28.5 pg (27.0-33.0); Mean Corpuscular Volume 83.5 fL (80.0-98.0); Mean Platelet Volume 10.5 fL (9.4-12.4); Monocytes Percent Auto 0.7 % (2-11); Neutrophils Absolute Auto 2.7 x10*3/uL (2.0-8.3); Neutrophils Percent Auto 87.4 % (45-73); Platelet Count 142 X10*3/uL (160-400); Red Blood Count 5.64 X10*6/uL (4.60-5.80); Red Cell Distribution Width 14.9 % (11.0-16.0)
[2023-04-02 23:36] LABS: Glucose, Whole Blood 130 mg/dL (60-115)
[2023-04-02 23:37] LABS: INTERNATIONAL NORM RATIO 1.1 (0.9-1.1); Prothrombin Time 12.2 SEC (10.0-13.1)
[2023-04-02 23:47] LABS: Alanine Aminotransferase 171 U/L (0-40); Albumin Level 4.1 g/dL (3.5-5.0); Alkaline Phosphatase 155 U/L (39-117); Anion Gap 21 (12-20); Aspartate Amino Transferase 296 U/L (5-37); Bilirubin Total 2.3 mg/dL (0.0-1.0); Blood Urea Nitrogen 20 mg/dL (9-16); Calcium 9.2 mg/dL (8.4-10.2); Carbon Dioxide 18 mmol/L (22-29); Chloride 108 mmol/L (96-108); Estimated Glomerular Filt Rate 51; Glucose Random 119 mg/dL (60-115); Magnesium 1.9 mg/dL (1.6-2.6); Potassium 3.6 mmol/L (3.3-5.1); Sodium 143 mmol/L (135-145); Total Protein 6.4 g/dL (6.5-8.0)
[2023-04-02] MEDS: cefTRIAXone sodium 1 GM in 0.9 % Sodium Chloride 50 ML IV (23:51)
[2023-04-02 23:52] LABS: Lactic Acid 4.6 mmol/L (0.5-2.0); Troponin-I High Sensitivity < 2.7 ng/L (<3.5-35.0)
[2023-04-02] MEDS: ondansetron HCL 4 MG/2 ML VIAL IVPUSH (23:53)
[2023-04-02] MEDS: Famotidine/PF 20 MG/2 ML VIAL IVPUSH (23:57)
[2023-04-02] MEDS: 0.9 % Sodium Chloride 1,000 ML 999 ML IV (23:57)
[2023-04-03] VITALS (8 sets, daily range): BP systolic 102–146; BP diastolic 69–90; PULSE 92–116; RESP 12–22; TEMP 36.2–38.4; O2SAT 80–100; BMI 24.4
--- NOTE | 2023-04-03 00:02 | PC.NURSE ---
pt voiding carlota red blood, Dr Delatorre aware, pelayo placed by provider, pt incontinent of stool, papi care completed, Complete bed change, Poc completed and reported. Medicated per Nov. Notified attending Nurse Juliann. Pt had a low rectal temp of 99.3. Will continue to monitor.
[2023-04-03 00:15] LABS: Appearance Urine Cloudy; Color Urine Yellow; Glucose Urine UA Negative (Negative); Leukocyte Esterase Urine Large (3+) (Negative); Nitrite Urine Negative (Negative); UMIC TRIGGER UACC YES; Urine Blood Large (3+) (Negative); Urine Ketones Negative (Negative); Urine Protein 30 (1+) mg/dL (Neg-Trace)
--- NOTE | 2023-04-03 00:17 | PC.NURSE ---
patient was brought into the er due to [id number] mental status patient son stated he was acting very unusual patient was vomiting and not responding patient was brought in for care patient will continue to be monitored for safety
[2023-04-03 00:18] LABS: Bacteria Urine 1+ (None Seen); Hyaline Casts Urine 0-2 /LPF (0-2); RBC Urine >20 /HPF (0-2); Squamous Epithelial Cell Urine 0-2 /HPF (0-2); UACC Culture Trigger YES; WBC Urine >50 /HPF (0-5)
[2023-04-03 00:50] LABS: IDNOW Serial# 08D9AD1C
[2023-04-03 00:51] LABS: COVID-19 Test Negative (Negative)
[2023-04-03] MEDS: Lactated Ringers 1,000 ML 100 ML IVCONT ×3 (01:00→21:21)
--- NOTE | 2023-04-03 01:31 | P.HPHOSP_ITS ---
History of Present Illness Date of Service: 04/03/23 Chief Complaint: confusion 72 yo with past medical history of BPH, CVA, HTN, HLD, recurrent UTI, with baseline being alert and oriented comes into the hospital with increased confusion. Spoke to the son over the phone who lives with him full-time. Son states that he left his father for about half an hour to grab lunch, when he came back, he found his father laying on the couch, with lost over eyes, and vomit all over him, grunting, he then had 2 more episodes of red dark vomitus with what looked like chunks of organs . Prior to this patient was normal and at his baseline mentation. According to the son he has not had any acute illness or complaints recently. Unable to get much history from patient himself as he is very confused, unable to even answer questions about review of system On arrival to the ED patient noted to be tachycardic otherwise stable Labs are significant for WBC count of 3.0, hemoglobin of 16, BUN of 20, creatinine of 1.37, lactic acid of 4.6, AST of 296, ALT of 171, alk-phos of 155, troponin negative, UA positive for leukocyte Estrace, WBC, and urine bacteria Chest x-ray negative, head CT negative, abdomen pelvic CT shows thick-walled appearance of the urinary bladder concerning for L obstruction versus cystitis, partially visualized fluid density structure in the right upper thigh abductor musculature measuring 2.7 x 1.9 cm of uncertain etiology Patient will be admitted for further management Review of Systems Review of Systems: Yes all other systems are reviewed and are negative [facility] Medical History Abnormal computed tomography angiography (CTA) Annual physical exam BPH (benign prostatic hyperplasia) CVA (cerebral vascular accident) Dementia Follicular lymphoma Hearing loss History of CVA (cerebrovascular accident) History of CVA (cerebrovascular accident) HTN (hypertension) Hyperglycemia Hyperlipidemia Hypertension Lumbar spinal stenosis Recurrent UTI Syncope Family History Father Colon cancer HTN (hypertension) Brother Non-Hodgkin lymphoma HTN (hypertension) Sister HTN (hypertension) Mother HTN (hypertension) TIA (transient ischemic attack) Surgical History H/O colonoscopy No pertinent past surgical history Social History Household Members: Children Household Members Other:: He mentioned 2 dogs and a person, but not answering now. Housing: House Housing Other:: Unsure if this is correct. Are you a primary senior resident care director to a significant other at home: No Do you presently have visiting nurse or other home services: Yes Unable to assess alcohol history related to: Unknown Alcohol intake: never Patient Tobacco Use Status: Never used Tobacco Smoked in Last 30 Days: No e-Cigarette/Vaping Use: Never Used Use of substances other than those prescribed or required for medical reasons: No Advance Directives: Yes Advance Directives on File: Yes Advance Directives Date on File: 08/29/22 service: No Current occupational status: retired Cognitive needs: No Hearing needs: Yes Vision needs: No Meds Allergies Allergy/AdvReac Type Severity Reaction Status Date / Time No Known Allergies Allergy Verified 03/08/23 13:44 [No Known Allergies*] Physical Exam Vital Signs and Narrative: Vital Signs: Last Vital Signs Temp 99.3 F 04/03/23 00:07 Pulse 115 H 04/03/23 00:07 Resp 17 04/03/23 00:07 BP 122/80 04/03/23 00:07 Pulse Ox 100 04/03/23 00:07 O2 Del Method High Flow Nasal C annula 04/03/23 00:07 BMI result Body Mass Index 24.4 Const: Other: Patient is alert, orientation cannot be assessed as patient is confused, grunting, not answering questions appropriately Eyes: General: appearance normal, both eyes and all related structures Resp: Other: On high-flow oxygen Effort & Inspection: normal respiratory effort Cardio: Rate: regular rate Rhythm: regular rhythm GI: Other: Abdomen is nontender, no rebound or guarding Palpation (GI): Soft to palpation Auscultation: normal bowel sounds Skin: General skin exam: no rashes or lesions noted Results Labs 04/02/23 23:00 04/02/23 23:00 Labs: Laboratory Results - last 24 hr 04/02/23 04/02/23 04/02/23 23:00 23:00 23:00 MCV 83.5 MCH 28.5 MCHC 34.2 RDW 14.9 Plt Count 142 L MPV 10.5 Immature Gran % (Auto) 1.0 H Neut % (Auto) 87.4 H Lymph % (Auto) 10.2 L [place] % (Auto) 0.7 L Eos % (Auto) 0.0 Baso % (Auto) 0.7 Lymph # (Auto) 0.3 L [place] # (Auto) 0.0 L Eos # (Auto) 0.0 Baso # (Auto) 0.0 Abs Immat Gran (auto) 0.03 Absolute Neuts (auto) 2.7 Absolute Nucleated RBC 0.000 Nucleated RBC % (auto) 0.0 PT 12.2 INR 1.1 Anion Gap 21 H Estim Creat Clear Calc TNP Estimated GFR 51 POC Glucose Random Glucose 119 H Lactic Acid Calcium 9.2 Magnesium 1.9 Total Bilirubin 2.3 H AST 296 H ALT 171 H Alkaline Phosphatase 155 H Troponin I High Sens Total Protein 6.4 L Albumin 4.1 Urine Color Urine Appearance Urine pH Ur Specific [place] Urine Protein Urine Glucose (UA) Urine Ketones Urine Blood Urine Nitrite Ur Leukocyte Esterase Urine RBC Urine WBC Ur Squamous Epith Cells Urine Bacteria Hyaline Casts COVID-19 (JAMAL) COVID-19 Clin Com 04/02/23 04/02/23 04/02/23 23:00 23:00 23:31 MCV MCH MCHC RDW Plt Count MPV Immature Gran % (Auto) Neut % (Auto) Lymph % (Auto) [place] % (Auto) Eos % (Auto) Baso % (Auto) Lymph # (Auto) [place] # (Auto) Eos # (Auto) Baso # (Auto) Abs Immat Gran (auto) Absolute Neuts (auto) Absolute Nucleated RBC Nucleated RBC % (auto) PT INR Anion Gap Estim Creat Clear Calc Estimated GFR POC Glucose 130 H Random Glucose Lactic Acid 4.6 H* Calcium Magnesium Total Bilirubin AST ALT Alkaline Phosphatase Troponin I High Sens < 2.7 Total Protein Albumin Urine Color Urine Appearance Urine pH Ur Specific [place] Urine Protein Urine Glucose (UA) Urine Ketones Urine Blood Urine Nitrite Ur Leukocyte Esterase Urine RBC Urine WBC Ur Squamous Epith Cells Urine Bacteria Hyaline Casts COVID-19 (JAMAL) COVID-19 Clin Com 04/03/23 04/03/23 00:03 00:07 MCV MCH MCHC RDW Plt Count MPV Immature Gran % (Auto) Neut % (Auto) Lymph % (Auto) [place] % (Auto) Eos % (Auto) Baso % (Auto) Lymph # (Auto) [place] # (Auto) Eos # (Auto) Baso # (Auto) Abs Immat Gran (auto) Absolute Neuts (auto) Absolute Nucleated RBC Nucleated RBC % (auto) PT INR Anion Gap Estim Creat Clear Calc Estimated GFR POC Glucose Random Glucose Lactic Acid Calcium Magnesium Total Bilirubin AST ALT Alkaline Phosphatase Troponin I High Sens Total Protein Albumin Urine Color Yellow Urine Appearance Cloudy Urine pH 5.0 Ur Specific [place] 1.010 Urine Protein 30 (1+) H Urine Glucose (UA) Negative Urine Ketones Negative Urine Blood Large (3+) H Urine Nitrite Negative Ur Leukocyte Esterase Large (3+) H Urine RBC >20 H Urine WBC >50 H Ur Squamous Epith Cells 0-2 Urine Bacteria 1+ Hyaline Casts 0-2 COVID-19 (JAMAL) Negative COVID-19 Clin Com See Note Imaging Radiologist's Impressions: Impressions Chest X-Ray 04/02/23 23:14 IMPRESSION: No acute cardiopulmonary findings. Assessment and Plan (1) Sepsis: Status: Acute (2) Encephalopathy: Status: Resolved (3) Acute UTI: Status: Acute (4) HALEY (acute kidney injury): Status: Acute (5) Transaminitis: Status: Acute (6) Coffee ground emesis: Status: Acute (7) Acute respiratory failure with hypoxia: Status: Acute Plan 72-year-old male with past medical history of recurrent UTI and sepsis comes into the hospital after son found him to be confused # sepsis - secondary to UTI, unable to find any other etiology, chest CT pending - will treat with IV antibiotics - follow cultures # acute metabolic encephalopathy - likely secondary to acute infection - has CT negative - will treat underlying infection - monitor mentation ( baseline alert oriented x3 per son) # acute UTI - positive UA - will treat with IV antibiotics - follow cultures # on high-flow oxygen/hypoxic respiratory failure - no evidence of pulmonary disease on chest x-ray, no documented hypoxia - will titrate down oxygen - will obtain chest CT - monitor respiratory status # lactic acidosis - likely multifactorial in the setting of dehydration and sepsis - will treat with IV fluids - follow lactic acid # coffee-ground emesis - patient has streaks of coffee-ground on his cool and mouth, son also described 2 episodes of coffee-ground emesis - start him on PPI IV - GI consulted - follow hemoglobin # HALEY - secondary to dehydration - will treat with IV fluids - follow BMP # transaminitis - likely secondary to sepsis - IVF - follow liver panel DVT Prophylaxis: Heparin subQ at this time his risk of DVT, and stable he moglobin pending further evaluation by GI Given patient's need for IV antibiotics, IV hydration, and further evaluation for all the above-mentioned reason patient require minimum 2 nights inpatient h ospital stay for further management and monitoring Time Spent With Patient Time: Total time managing care of this patient today ____ minutes. Quality Stroke Does the patient have a stroke diagnosis?: No VTE Prior VTE?: No VTE Risk Level:: Medical - moderate - high VTE Device Contraindication: N/A - Device Ordered VTE Drug Contraindication: N/A - Med Ordered
[2023-04-03 01:37] LABS: Reflex Lactate? Lactic Acid Added
[2023-04-03 02:32] LABS: ~Lactic Acid-LAB USE ONLY 3.9 mmol/L (0.5-2.0)
[2023-04-03 02:35] LABS: Alanine Aminotransferase 289 U/L (0-40); Albumin Level 3.5 g/dL (3.5-5.0); Alkaline Phosphatase 146 U/L (39-117); Anion Gap 19 (12-20); Aspartate Amino Transferase 415 U/L (5-37); Bilirubin Total 3.8 mg/dL (0.0-1.0); Blood Urea Nitrogen 20 mg/dL (9-16); Calcium 8.6 mg/dL (8.4-10.2); Carbon Dioxide 20 mmol/L (22-29); Chloride 109 mmol/L (96-108); Creatinine Clr Calc Pharmacy 61.1; Estimated Glomerular Filt Rate > 60; Glucose Random 101 mg/dL (60-115); Potassium 3.3 mmol/L (3.3-5.1); Sodium 145 mmol/L (135-145); Total Protein 5.7 g/dL (6.5-8.0)
--- NOTE | 2023-04-03 03:48 | PC.NURSE ---
patient in bed with eyes closed patient is still on the high flow with no issues at this time
[2023-04-03 04:15] LABS: Reflex Lactate? 2 Y
[2023-04-03 05:19] LABS: PLT CLUMP 1; Red Blood Count 5.29 X10*6/uL (4.60-5.80); Red Cell Distribution Width 15.2 % (11.0-16.0)
[2023-04-03 05:21] LABS: Hematocrit 44.8 % (42.0-52.0); Hemoglobin 14.9 g/dl (14.0-18.0); Mean Corpuscular HGB Conc 33.3 g/dl (31.0-36.0); Mean Corpuscular Hemoglobin 28.2 pg (27.0-33.0); Mean Corpuscular Volume 84.7 fL (80.0-98.0); Mean Platelet Volume 10.8 fL (9.4-12.4)
[2023-04-03 05:33] LABS: Anion Gap 18 (12-20); Blood Urea Nitrogen 19 mg/dL (9-16); Calcium 8.7 mg/dL (8.4-10.2); Carbon Dioxide 19 mmol/L (22-29); Chloride 111 mmol/L (96-108); Creatinine Clr Calc Pharmacy 63.3; Estimated Glomerular Filt Rate > 60; Glucose Random 95 mg/dL (60-115); Potassium 3.7 mmol/L (3.3-5.1); Sodium 144 mmol/L (135-145); ~Lactic Acid-LAB USE ONLY 4.9 mmol/L (0.5-2.0)
[2023-04-03 05:57] LABS: Platelet Count 70 X10*3/uL (160-400); White Blood Count 8.5 X10*3/uL (4.8-10.8)
[2023-04-03 06:04] LABS: Band Neutrophils Percent 27 % (3-5); Lymphocytes Absolute Manual 0.4 X10*3/uL (1.2-4.9); Lymphocytes Percent Manual 5 % (20-40); Metamyelocytes Absolute 0.1 X10*3/uL; Metamyelocytes Percent 1 %; Monocytes Absolute Manual 0.1 X10*3/uL (0.1-1.2); Monocytes Percent Manual 1 % (2-11); Neutrophils Absolute Manual 7.9 X10*3/uL (2.0-8.3); Neutrophils Percent Manual 66 % (45-73)
[2023-04-03 06:06] LABS: Burr Cells 1+ (0-2) /OIF; Ovalocytes 1+ (5-14) /OIF; Platelet Estimate DECREASED (NORMAL); RBC Morphology NOTED
[2023-04-03 06:07] LABS: Large Platelet PRESENT; Platelet Morphology Comment NOTED
[2023-04-03] MEDS: Pantoprazole Sodium 40 MG/10 ML VIAL IVPUSH ×2 (06:33→16:53)
--- NOTE | 2023-04-03 06:33 | PC.NURSE ---
patient in bed with eyes closed patient showing no signs of distress at this time patient vitals are stable patient ism off the high flow machine patient was administered all medication with no issues patient will continue to be monitored for safety
--- NOTE | 2023-04-03 06:57 | PC.NURSE ---
report taken from denice barron pt here for ams, awakens to name, alert and orientd x 1, denies pain at this time. returned from ct scan, awaiting results. rr even/unlabored, vss. pelayo in place draining yellow, clear urine output approx 350 ml. awaiting inpt bed assignment.
--- NOTE | 2023-04-03 08:34 | PHA.MEDREC ---
Pharmacy Consult ? Medication Reconciliation Pharmacy has completed the medication reconciliation. Patient would not wake up. He opened his eye then immediately shut them. Med rec done by claim history. Kerrie Pham, AbhishekD
[2023-04-03 11:02] LABS: Lactic Acid 6.2 mmol/L (0.5-2.0)
[2023-04-03] MEDS: 0.9 % Sodium Chloride 1,000 ML 999 ML IV ×4 (11:13→14:02)
[2023-04-03 11:19] LABS: HBS Num1 0.04 mIU/mL (0-7.99); HBc Num1 0.16 S/CO (0.00-0.79); HBsAGNum1 0.34 S/CO (0.00-0.99); Hepatitis A Antibody IgM 0.23 Index (0-0.79); Hepatitis B Core Antibody Nonreactive (Nonreactive); Hepatitis B Surface Antigen Negative (Negative); ~HepC Num1 0.13 S/CO (0.00-0.79); ~Hepatitis A Antibody IgM Nonreactive (Nonreactive); ~Hepatitis B Surface Antibody NONREACTIVE (Nonreactive); ~Hepatitis C Antibody Nonreactive (Nonreactive)
[2023-04-03 11:30] LABS: Acetaminophen LAB < 17 mcg/mL (<30)
[2023-04-03 11:31] LABS: Reflex Lactate? Lactic Acid Added
[2023-04-03] MEDS: Heparin Sodium,Porcine 5,000 UNIT/ML VIAL 5000 UNIT SUBCUT ×2 (12:10→22:21)
--- NOTE | 2023-04-03 12:23 | PM.EVENT ---
Event Note Date of Service: 04/03/23 Event Note: Seen and evaluated obtunded, difficult to arouse LActic acidosis change Abx to Meropenem Blood cultures growing GNR Lactic acidsis, give bolus and increase IVF rate follow LFT and LA Time Spent With Patient Time: Total time managing care of this patient today ____ minutes.
[2023-04-03 12:30] LABS: ~Lactic Acid-LAB USE ONLY 6.1 mmol/L (0.5-2.0)
[2023-04-03 14:00] LABS: Reflex Lactate? 2 Y
[2023-04-03 15:19] LABS: ~Lactic Acid-LAB USE ONLY 6.7 mmol/L (0.5-2.0)
--- NOTE | 2023-04-03 15:43 | MHC.CM.PN ---
Addendum entered by Eloina Amado 04/03/23 16:09: Message received from . The plan is to order a Psych eval once medically cleared. Original Note: IMM 04/03/23 DX UTI SEPSIS Patient lives with his son. He ambulates slowly and cautiously. He has a walker and cane; but he does not use either. He showers with use of a tub bench and son on standby. His son Kamar and dtr, Martha are both listed as HCP. They both are concerned about their fathers health, physically and mentally. They report that he does not take his pills every day. He misses a few days per week. His dtr fills his med box. She is able to easily assess his medication compliance. He sits on his porch all day. He is not moving around. He stares out the window. He does not get up from the chair all day. His PO intake is very poor, per both adult children. DP pending PT eval. A text was sent to MD about the families concerns.
[2023-04-03 16:16] LABS: Alanine Aminotransferase 194 U/L (0-40); Albumin Level 3.1 g/dL (3.5-5.0); Alkaline Phosphatase 91 U/L (39-117); Anion Gap 15 (12-20); Aspartate Amino Transferase 147 U/L (5-37); Bilirubin Direct 0.8 mg/dL (0.0-0.5); Bilirubin Total 2.1 mg/dL (0.0-1.0); Blood Urea Nitrogen 22 mg/dL (9-16); Carbon Dioxide 19 mmol/L (22-29); Chloride 114 mmol/L (96-108); Creatinine Clr Calc Pharmacy 44.5; Estimated Glomerular Filt Rate 42; Glucose Random 97 mg/dL (60-115); Lactate Dehydrogenase 364 U/L (118-273); Potassium 4.1 mmol/L (3.3-5.1); Sodium 144 mmol/L (135-145); Uric Acid 7.5 mg/dL (3.4-7.0)
[2023-04-03 16:38] LABS: Ammonia 25 umol/L (13-55)
[2023-04-03 16:59] LABS: INTERNATIONAL NORM RATIO 1.3 (0.9-1.1); Prothrombin Time 15.5 SEC (10.0-13.1)
[2023-04-03] MEDS: Metoprolol Tartrate 25 MG TABLET PO (22:19)
--- NOTE | 2023-04-03 22:55 | P.CNID_ITS ---
History of Present Illness Data of Consult Service Date: 04/03/23 Primary Care Provider: Unknown Physician HPI Reason for consult: encephalopathy He presents with confusion as well as fatigue. He has had prior urosepsis. He has gram negative ant bacteremia. Review of Systems Review of Systems: Yes all other systems are reviewed and are negative [facility] Past Medical History Medical History Abnormal computed tomography angiography (CTA) Annual physical exam BPH (benign prostatic hyperplasia) CVA (cerebral vascular accident) Dementia Follicular lymphoma Hearing loss History of CVA (cerebrovascular accident) History of CVA (cerebrovascular accident) HTN (hypertension) Hyperglycemia Hyperlipidemia Hypertension Lumbar spinal stenosis Recurrent UTI Syncope Family History Family History Father Colon cancer HTN (hypertension) Brother Non-Hodgkin lymphoma HTN (hypertension) Sister HTN (hypertension) Mother HTN (hypertension) TIA (transient ischemic attack) Family history: reviewed and not pertinent Surgical History Surgical History H/O colonoscopy No pertinent past surgical history Social History Social History Household Members: Unknown / Unable to assess Household Members Other:: He mentioned 2 dogs and a person, but not answering now. Housing: Unknown / Unable to assess Housing Other:: Unsure if this is correct. Are you a primary customer care associate to a significant other at home: No Unable to assess alcohol history related to: Unable to respond Alcohol intake: never Patient Tobacco Use Status: Never used Tobacco e-Cigarette/Vaping Use: Never Used Advance Directives Date on File: 08/29/22 service: No Current occupational status: retired Cognitive needs: No Hearing needs: Yes Vision needs: No Meds Allergies Allergy/AdvReac Type Severity Reaction Status Date / Time No Known Allergies Allergy Verified 03/08/23 13:44 [No Known Allergies*] Active Medications: Current Medications Acetaminophen (Acetaminophen 325 Mg Tablet) 650 mg PO Q6H PRN PRN Reason: Pain, Mild (Pain Scale 1-3) Docusate Sodium (Docusate Sodium 100 Mg Capsule) 100 mg PO DAILY PRN PRN Reason: Constipation Finasteride (Finasteride 5 Mg Tablet) 5 mg PO DAILY [facility] Heparin Sodium (Porcine) (Heparin Sodium,Porcine 5,000 Unit/Ml Vial) 5,000 unit SUBCUT Q12H [facility] Last Admin: 04/03/23 22:21 Dose: 5,000 unit Lactated Ringer's (Lr) 1,000 mls @ 125 mls/hr IVCONT .Q8H [facility] Last Admin: 04/03/23 21:21 Dose: 100 mls/hr Meropenem 1 gm/ Sodium (Chloride) 100 mls @ 200 mls/hr IV Q8H [facility] Last Infusion: 04/03/23 21:19 Dose: Infused Metoprolol Tartrate (Metoprolol Tartrate 25 Mg Tablet) 25 mg PO BID [facility]; Protocol Last Admin: 04/03/23 22:19 Dose: 25 mg Ondansetron HCl (Ondansetron Hcl 4 Mg/2 Ml Vial) 4 mg IVPUSH Q8H PRN PRN Reason: Nausea and Vomiting Pantoprazole Sodium (Pantoprazole Sodium 40 Mg/10 Ml Vial) 40 mg IVPUSH BID@0630,1630 [facility] Last Admin: 04/03/23 16:53 Dose: 40 mg Pharmacy Consult (Consult Rx Perform Med Rec) 1 each MISCELLANE ONCE PRN PRN Reason: Consult order Sodium Chloride (0.9 % Sodium Chloride Flush 3 Ml Syringe) 3 ml IVFLUSH QSHIFT [facility] Last Admin: 04/03/23 15:21 Dose: Not Given Physical Exam Vital Signs: Vital Signs: Last Vital Signs Temp 99.5 F 04/03/23 19:40 Pulse 100 04/03/23 19:40 Resp 20 04/03/23 19:40 BP 146/84 H 04/03/23 19:40 Pulse Ox 97 04/03/23 19:40 O2 Del Method Room Air 04/03/23 19:40 BMI result Body Mass Index 24.4 Const: General: cooperative HEENT: Head: Yes normal to inspection Face and sinus: Yes normal facial exam Mouth: Normal oral and palatal mucosa present Teeth and gingiva: dent ition normal Eyes: General: appearance normal, both eyes and all related structures Pupils: Equal, round and reactive pupils present Resp: Effort & Inspection: normal respiratory effort Cardio: Rate: regular rate Rhythm: regular rhythm GI: Palpation (GI): Soft to palpation and nontender : General: Yes no CVA tenderness Back/Spine/Pelvis: Back: no CVA tenderness Skin: General skin exam: no rashes or lesions noted Neuro: General: moves all extremities Cranial nerves: Yes Equal, round and reactive pupils present Extrem: General: Yes normal to inspection Psych: Other: confused Results Labs 04/03/23 04:58 04/03/23 15:45 Labs: Short CBC 04/02/23 04/03/23 Range/Units 23:00 04:58 WBC 3.0 L 8.5 (4.8-10.8) X10*3/uL Hgb 16.1 14.9 (14.0-18.0) g/dl Hct 47.1 44.8 (42.0-52.0) % Plt Count 142 L 70 L D (160-400) X10*3/uL BMP 04/02/23 04/03/23 04/03/23 23:00 02:09 04:58 Sodium 143 145 144 Potassium 3.6 3.3 3.7 Chloride 108 109 H 111 H Carbon Dioxide 18 L 20 L 19 L BUN 20 H 20 H 19 H Creatinine 1.37 1.18 1.14 Calcium 9.2 8.6 D 8.7 04/03/23 15:45 Sodium 144 Potassium 4.1 Chloride 114 H Carbon Dioxide 19 L BUN 22 H Creatinine 1.62 H Calcium 8.0 L D Cardiac Enzymes 04/03/23 Range/Units 04:58 Total Creatine Kinase 84 (38-174) U/L Liver Function 04/02/23 04/03/23 04/03/23 Range/Units 23:00 02:09 15:45 Total Bilirubin 2.3 H 3.8 H 2.1 H (0.0-1.0) mg/dL Direct Bilirubin 0.8 H (0.0-0.5) mg/dL AST 296 H 415 H 147 H (5-37) U/L ALT 171 H 289 H 194 H (0-40) U/L Alkaline Phosphatase 155 H 146 H 91 (39-117) U/L Albumin 4.1 3.5 3.1 L (3.5-5.0) g/dL Urine 04/03/23 Range/Units 00:07 Urine Color Yellow Urine Appearance Cloudy Urine pH 5.0 (5.0-9.0) Ur Specific [place] 1.010 (1.005-1.025) Urine Protein 30 (1+) H (Neg-Trace) mg/dL Urine Glucose (UA) Negative (Negative) mg/dL Microbiology Microbiology Results: Microbiology 04/03/23 00:07 Blood - Venous Blood Culture - Preliminary Prelim: GNR Gram Stain only 04/02/23 23:00 Blood - Venous Blood Culture - Preliminary Prelim: GNR Gram Stain only Assessment and Plan (1) Acute metabolic encephalopathy: Status: Acute He has probable urosepsis again due to delayed emptying (bladder stasis) Gram negative organism is to be identified. (2) Sepsis: Status: Acute (3) Acute UTI: Status: Acute Plan Await culture Continue Merem for now. Urology input help with bladder stasis. Time Spent With Patient Time: Total time managing care of this patient today ____ minutes.
[2023-04-04 03:37] VITALS: BP 123/69; PULSE 87; RESP 18; TEMP 36.5; O2SAT 96
[2023-04-04] MEDS: Lactated Ringers 1,000 ML 100 ML IVCONT (03:51)
[2023-04-04] MEDS: Pantoprazole Sodium 40 MG/10 ML VIAL IVPUSH ×2 (05:51→16:21)
[2023-04-04 06:05] LABS: Hematocrit 38.1 % (42.0-52.0); Hemoglobin 12.9 g/dl (14.0-18.0); Mean Corpuscular HGB Conc 33.9 g/dl (31.0-36.0); Mean Corpuscular Hemoglobin 28.5 pg (27.0-33.0); Mean Corpuscular Volume 84.3 fL (80.0-98.0); Mean Platelet Volume 12.5 fL (9.4-12.4); Red Blood Count 4.52 X10*6/uL (4.60-5.80); Red Cell Distribution Width 15.8 % (11.0-16.0); White Blood Count 9.2 X10*3/uL (4.8-10.8)
[2023-04-04 06:06] LABS: Platelet Count 54 X10*3/uL (160-400)
[2023-04-04 06:20] LABS: INTERNATIONAL NORM RATIO 1.4 (0.9-1.1); Prothrombin Time 15.8 SEC (10.0-13.1)
[2023-04-04 06:21] LABS: Anion Gap 13 (12-20); Blood Urea Nitrogen 23 mg/dL (9-16); Calcium 8.3 mg/dL (8.4-10.2); Carbon Dioxide 19 mmol/L (22-29); Chloride 116 mmol/L (96-108); Creatinine Clr Calc Pharmacy 51.9; Estimated Glomerular Filt Rate 50; Glucose Random 86 mg/dL (60-115); Sodium 144 mmol/L (135-145); Uric Acid 6.9 mg/dL (3.4-7.0)
[2023-04-04 06:24] LABS: Alanine Aminotransferase 135 U/L (0-40); Albumin Level 3.1 g/dL (3.5-5.0); Alkaline Phosphatase 86 U/L (39-117); Aspartate Amino Transferase 88 U/L (5-37); Bilirubin Direct 0.6 mg/dL (0.0-0.5); Lactate Dehydrogenase 305 U/L (118-273); Phosphorus 3.5 mg/dL (2.7-4.5)
[2023-04-04 06:58] LABS: Erythrocyte Sedimentation Rate 12 MM/HR (0-15)
[2023-04-04 07:51] VITALS: BP 130/71; PULSE 79; RESP 16; TEMP 36.7; O2SAT 96
[2023-04-04] MEDS: Finasteride 5 MG TABLET PO (09:23)
[2023-04-04] MEDS: Metoprolol Tartrate 25 MG TABLET PO ×2 (09:23→20:30)
[2023-04-04] MEDS: Heparin Sodium,Porcine 5,000 UNIT/ML VIAL 5000 UNIT SUBCUT ×2 (09:24→20:29)
--- NOTE | 2023-04-04 09:32 | MHC.CM.PN ---
Address correction sent to Registration. [facility] was listed as residence. Patient came from home. He was recently at [facility] per family. [facility] was sent a referral RETURN to SNF prior to speaking with Pts son. [facility] is following. If patient qualifies for Acute rehab 1st choice [facility]. If he qualifies for STR ELS, is 1st choice. Patient is awake and speaking today. CM will follow for discharge.
[2023-04-04 10:44] LABS: Creatinine Urine 40.46 mg/dL
[2023-04-04 11:12] VITALS: BP 130/71; PULSE 79; O2SAT 96
[2023-04-04 11:50] LABS: EOS Counted 0 CELLS; EOS QC POS YES; EOS Stain Quality OK YES; WBC, Counted 100 CELLS
[2023-04-04] MEDS: Lactated Ringers 1,000 ML 125 ML IVCONT (13:01)
--- NOTE | 2023-04-04 14:45 | P.CDIM_ITS ---
PROVIDER RESPONSE TEXT: To clarify, the appropriate diagnosis supported by the clinical indicators: Acute QUERY TEXT: PHYSICIAN'S DOCUMENTATION REQUEST Date of Query: 04/04/2023 08:29 AM EDT Patient Name: Joseph Richard Admit Date: 04/03/2023 Dear Camelia Ward, A review of the medical record indicates additional documentation may be needed. Please review below and update the documentation accordingly. Clinical Indicators: H&P 7/12 - Lactic acidosis likely multifactorial in the setting of dehydration and sepsis. LA 4.9 Clarify which of the following accurately represents the acuity of the Lactic acidosis Possible options might include: Acute Other Other (explain)Clinically unable to determine (explain)Thank you, Sera Bone, CCS, CDIS Use of terms such as suspected, likely, concern for, or probable (associated with a specific diagnosi s that is being evaluated, monitored, or treated as if it exists) are acceptable and can be coded in the inpatient se tting, when documented at the time of discharge. Please use your independent medical judgment in providing your response. THIS QUERY IS PART OF THE PERMANENT MEDICAL RECORD
--- NOTE | 2023-04-04 14:54 | HO.PM.IMPN ---
Subjective Subjective Date of Service: 04/04/23 Interval History: Seen and evaluated this morning More alert and interactive but overall confused Denies any pain No fever overnight LFT trending down Review of Systems Review of Systems: Yes all other systems are reviewed and are negative Physical Exam Vital Signs: Vital Signs: Last Vital Signs Temp 98.0 F 04/04/23 07:51 Pulse 79 04/04/23 11:12 Resp 16 04/04/23 07:51 BP 130/71 04/04/23 11:12 Pulse Ox 96 04/04/23 11:12 O2 Del Method Room Air 04/04/23 07:51 BMI result Body Mass Index 24.4 Const: Other: Constitutional : Awake, interactive with stimulation, weak when speaks and difficult to understand all what he says , not in distress Neck : Normal inspection, Supple Cardiovascular : RRR, no JVP, no lower extremity edema Respiratory : good bilateral air entry, no crackles, wheezes or rhonchi Gastrointestinal: soft, lax, Normal bowel sounds, Non tender Skin : Warm, Dry, pelayo in place Neurological : Alert & oriented to self only otherwise confused, No focal deficit Objective Data Active Medications Acetaminophen (Acetaminophen 325 Mg Tablet) 650 mg PO Q6H PRN PRN Reason: Pain, Mild (Pain Scale 1-3) Docusate Sodium (Docusate Sodium 100 Mg Capsule) 100 mg PO DAILY PRN PRN Reason: Constipation Finasteride (Finasteride 5 Mg Tablet) 5 mg PO DAILY [facility] Last Admin: 04/04/23 09:23 Dose: 5 mg Documented By: FILI Heparin Sodium (Porcine) (Heparin Sodium,Porcine 5,000 Unit/Ml Vial) 5,000 unit SUBCUT Q12H [facility] Last Admin: 04/04/23 09:24 Dose: 5,000 unit Documented By: FILI Lactated Ringer's (Lr) 1,000 mls @ 125 mls/hr IVCONT .Q8H [facility] Last Admin: 04/04/23 13:01 Dose: 125 mls/hr Documented By: FILI Meropenem 1 gm/ Sodium (Chloride) 100 mls @ 200 mls/hr IV Q8H [facility] Last Infusion: 04/04/23 13:02 Dose: 0 mls/hr Documented By: FILI Metoprolol Tartrate (Metoprolol Tartrate 25 Mg Tablet) 25 mg PO BID [facility]; Protocol Last Admin: 04/04/23 09:23 Dose: 25 mg Documented By: FILI Ondansetron HCl (Ondansetron Hcl 4 Mg/2 Ml Vial) 4 mg IVPUSH Q8H PRN PRN Reason: Nausea and Vomiting Pantoprazole Sodium (Pantoprazole Sodium 40 Mg/10 Ml Vial) 40 mg IVPUSH BID@0630,1630 [facility] Last Admin: 04/04/23 05:51 Dose: 40 mg Documented By: SHAUNA Pharmacy Consult (Consult Rx Perform Med Rec) 1 each MISCELLANE ONCE PRN PRN Reason: Consult order Sodium Chloride (0.9 % Sodium Chloride Flush 3 Ml Syringe) 3 ml IVFLUSH QSHIFT [facility] Last Admin: 04/04/23 09:06 Dose: Not Given Documented By: FILI Non-Admin Reason: IV Running Labs 04/04/23 05:36 04/04/23 05:36 Labs: Laboratory Results - last 24 hr 04/03/23 04/03/23 04/03/23 14:23 15:44 15:45 MCV MCH MCHC RDW Plt Count MPV Absolute Nucleated RBC Nucleated RBC % (auto) ESR PT 15.5 H INR 1.3 H Anion Gap 15 Estim Creat Clear Calc 44.5 Estimated GFR 42 Random Glucose 97 Lactic Acid F/U @ 4Hr 6.7 H* Uric Acid Calcium 8.0 L D Phosphorus Total Bilirubin 2.1 H Direct Bilirubin 0.8 H AST 147 H ALT 194 H Alkaline Phosphatase 91 Ammonia Lactate Dehydrogenase 364 H Total Protein 5.0 L Albumin 3.1 L Urine Eosinophils % Ur Random Sodium Urine Creatinine 04/03/23 04/03/23 04/04/23 15:45 16:19 05:35 MCV MCH MCHC RDW Plt Count MPV Absolute Nucleated RBC Nucleated RBC % (auto) ESR 12 PT INR Anion Gap Estim Creat Clear Calc Estimated GFR Random Glucose Lactic Acid F/U @ 4Hr Uric Acid 7.5 H Calcium Phosphorus Total Bilirubin Direct Bilirubin AST ALT Alkaline Phosphatase Ammonia 25 Lactate Dehydrogenase Total Protein Albumin Urine Eosinophils % Ur Random Sodium Urine Creatinine 04/04/23 04/04/23 04/04/23 05:36 05:36 05:36 MCV 84.3 MCH 28.5 MCHC 33.9 RDW 15.8 Plt Count 54 L MPV 12.5 H Absolute Nucleated RBC 0.000 Nucleated RBC % (auto) 0.0 ESR PT INR Anion Gap 13 Estim Creat Clear Calc 51.9 Estimated GFR 50 Random Glucose 86 Lactic Acid F/U @ 4Hr Uric Acid 6.9 Calcium 8.3 L Phosphorus 3.5 Total Bilirubin 2.0 H Direct Bilirubin 0.6 H AST 88 H ALT 135 H Alkaline Phosphatase 86 Ammonia Lactate Dehydrogenase 305 H Total Protein 5.0 L Albumin 3.1 L Urine Eosinophils % Ur Random Sodium Urine Creatinine 04/04/23 04/04/23 04/04/23 05:36 05:36 09:34 MCV MCH MCHC RDW Plt Count MPV Absolute Nucleated RBC Nucleated RBC % (auto) ESR PT 15.8 H INR 1.4 H Anion Gap Estim Creat Clear Calc Estimated GFR Random Glucose Lactic Acid F/U @ 4Hr Uric Acid Cancelled Calcium Phosphorus Total Bilirubin Direct Bilirubin AST ALT Alkaline Phosphatase Ammonia Lactate Dehydrogenase Total Protein Albumin Urine Eosinophils % 0.0 Ur Random Sodium Urine Creatinine 04/04/23 09:34 MCV MCH MCHC RDW Plt Count MPV Absolute Nucleated RBC Nucleated RBC % (auto) ESR PT INR Anion Gap Estim Creat Clear Calc Estimated GFR Random Glucose Lactic Acid F/U @ 4Hr Uric Acid Calcium Phosphorus Total Bilirubin Direct Bilirubin AST ALT Alkaline Phosphatase Ammonia Lactate Dehydrogenase Total Protein Albumin Urine Eosinophils % Ur Random Sodium 139.0 Urine Creatinine 40.46 Microbiology Microbiology Results: Microbiology 04/03/23 Unknown Urine Culture - Preliminary Urine clean catch - Urine mcmullen top Gram negative ant 04/03/23 00:07 Blood Culture - Preliminary Blood - Venous Gram negative ant 04/02/23 23:00 Blood Culture - Preliminary Blood - Venous Gram negative ant Assessment and Plan (1) Acute metabolic encephalopathy: Status: Acute (2) Sepsis: Status: Acute (3) Acute UTI: Status: Acute (4) Bacteremia due to Gram-negative bacteria: Status: Acute Plan 72-year-old male with past medical history of recurrent UTI and sepsis comes into the hospital after son found him to be confused # sepsis secondary to GNR Bacteremia from UTI treat with IV Meropenem for now follow cultures # acute metabolic encephalopathy secondary to acute infection CT negative treat underlying infection baseline alert oriented x3 per son # hypoxic respiratory failure no evidence of pulmonary disease on chest x-ray, no documented hypoxia resolved, on RA # lactic acidosis multifactorial in the setting of dehydration and sepsis and liver injury IV fluids # coffee-ground emesis reported streaks of coffee-ground on his cool and mouth, son also described 2 episodes of coffee-ground emesis Hb dilutional dropped, no recurrence of episodes unclear if that was blood or not check occult stool if positive consider GI on PPI IV follow hemoglobin # HALEY secondary to dehydration treat with IV fluids follow BMP # transaminitis secondary to sepsis follow liver panel DVT Prophylaxis Heparin subQ Given patient's need for IV antibiotics, IV hydration, and AMS will need overnight inpatient hospital stay for further management and monitoring Time Spent With Patient Time: Total time managing care of this patient today ____ minutes. Quality Stroke Does the patient have a stroke diagnosis?: No VTE Prior VTE?: No VTE Risk Level:: Medical - moderate - high VTE Device Contraindication: N/A - Device Ordered VTE Drug Contraindication: N/A - Med Ordered
[2023-04-04 15:21] VITALS: BP 146/82; PULSE 63; RESP 19; TEMP 36.8; O2SAT 97
[2023-04-04] MEDS: 0.9 % Sodium Chloride Flush 3 ML SYRINGE IVFLUSH (16:21)
[2023-04-04 16:32] LABS: Immature Retic Fraction 7.6 % (2.3-13.4); Retic HGB Equivalent 31.3 pg (30.0-35.0); Reticulocyte Percent 0.6 % (0.5-1.8); Reticulocytes Absolute 0.025 X10*6/uL (0.026-0.095)
[2023-04-04 18:03] LABS: Band Neutrophils Percent 20 % (3-5); Lymphocytes Absolute Manual 0.3 X10*3/uL (1.2-4.9); Lymphocytes Percent Manual 3 % (20-40); Metamyelocytes Absolute 0.3 X10*3/uL; Metamyelocytes Percent 3 %; Monocytes Absolute Manual 0.1 X10*3/uL (0.1-1.2); Monocytes Percent Manual 1 % (2-11); Neutrophils Absolute Manual 8.6 X10*3/uL (2.0-8.3); Neutrophils Percent Manual 73 % (45-73); RBC Morphology NOTED
[2023-04-04 18:04] LABS: Burr Cells 3+ (>5) /OIF; Ovalocytes 1+ (5-14) /OIF; Platelet Estimate DECREASED (NORMAL); Platelet Morphology Comment NORMAL
[2023-04-04 19:17] VITALS: BP 154/82; PULSE 81; RESP 19; TEMP 37; O2SAT 95
[2023-04-05 03:36] VITALS: BP 140/70; PULSE 70; RESP 17; TEMP 36.6; O2SAT 96
[2023-04-05] MEDS: Lactated Ringers 1,000 ML 125 ML IVCONT (04:59)
[2023-04-05] MEDS: Pantoprazole Sodium 40 MG/10 ML VIAL IVPUSH (05:49)
[2023-04-05 06:38] LABS: INTERNATIONAL NORM RATIO 0.9 (0.9-1.1); Prothrombin Time 10.7 SEC (10.0-13.1)
[2023-04-05 06:55] LABS: Hematocrit 38.6 % (42.0-52.0); Hemoglobin 13.1 g/dl (14.0-18.0); Mean Corpuscular HGB Conc 33.9 g/dl (31.0-36.0); Mean Corpuscular Hemoglobin 28.2 pg (27.0-33.0); Mean Corpuscular Volume 83.2 fL (80.0-98.0); Mean Platelet Volume 12.3 fL (9.4-12.4); Platelet Count 48 X10*3/uL (160-400); Red Blood Count 4.64 X10*6/uL (4.60-5.80); Red Cell Distribution Width 15.4 % (11.0-16.0); White Blood Count 7.2 X10*3/uL (4.8-10.8)
[2023-04-05 06:59] LABS: Anion Gap 12 (12-20); Blood Urea Nitrogen 20 mg/dL (9-16); Calcium 8.8 mg/dL (8.4-10.2); Carbon Dioxide 20 mmol/L (22-29); Chloride 113 mmol/L (96-108); Creatinine Clr Calc Pharmacy 77.6; Estimated Glomerular Filt Rate > 60; Glucose Random 59 mg/dL (60-115); Potassium 3.1 mmol/L (3.3-5.1); Sodium 142 mmol/L (135-145)
[2023-04-05] MEDS: Dextrose 50 % 25 GM/50 ML SYRINGE IVPUSH (07:22)
[2023-04-05 08:00] VITALS: BP 157/97; PULSE 80; RESP 16; TEMP 36.2; O2SAT 96
[2023-04-05 08:23] LABS: Glucose, Whole Blood 131 mg/dL (60-115)
[2023-04-05] MEDS: Metoprolol Tartrate 25 MG TABLET PO ×2 (09:20→19:46)
[2023-04-05] MEDS: Finasteride 5 MG TABLET PO (09:20)
[2023-04-05] MEDS: Heparin Sodium,Porcine 5,000 UNIT/ML VIAL 5000 UNIT SUBCUT ×2 (10:46→21:58)
--- NOTE | 2023-04-05 10:51 | MHC.SL.SWA ---
Speech Pathologist Impression: Risk of Aspiration Due to: Poor PO Intake Dysphasia Diet Status: Liquid Consistency and Strategies for Safe Swallow: Liquid Intake Recommendation: Thin Liquid Intake Strategies: Small Sips No Straws Solid Food Consistency: Dietary Recommendations: Regular Additional Modifications to Solid Foods: Recommend patient be encouraged to select preferred foods. Due to mild confusion, some coordination issues, patient will benefit from periodic supervision, particularly at start of meal to assure all food is readily accessible and patient is able progress independently without spilling or frustrations. Oral Medication Intake: Whole with Liquid Please contact the pharmacy regarding appropriate crushable or liquid drug formulations that are available whenever modified delivery is recommended. Compensatory Strategies and Precautions to be Taken for Safe Swallow: Sitting Upright (90 deg) No Straw Liquids from Cup Small Bites and Sips Alternate Liquids/Solids Supervision While Eating and Drinking for Safe Swallow: Intermittent Supervision Foods to Avoid: Large uncut pieces of meat, difficult to chew solids. Swallowing Recommended Treatments: Compens. Strategy Educat. Recommendation for Speech: Inpatient Speech Therapy Comment: Patient presents with most aspects of swallow WFL. Patient presented with one episode of coughing on thin liquid during this evaluation, which then did no re-occur after patient became more oriented and coordinated with taking independent cup sips. Patient is mildly confused, has mild coordination issues when self feeding, and would benefit from supervision at the start of any meal to assure that he can access all food and liquid items and is progressing with meal without spilling or becoming frustrated. Recommend start REGULAR diet with THIN liquids by cup sip only (no straw), pills whole with liquid or puree. Encourage patient to select preferred foods to encourage PO intake. TWIST MAKER will follow up 1-2X for toleration of diet. RN notified of recommendations in person, GOKUL HAWK by secure text. White board altered in room to reflect recommndations. Frequency/Duration: Date Range for Service Req: Timeline to reassess: Filler Leaf Cutter Long Clinican/Clinical Fellow: No Supervisory Statement: I have reviewed and agree with the student/clinical fellow's documentation: N/A Speech Language Pathologist: Dominique Mayer M.A., [facility]-TWIST [facility]ER
--- NOTE | 2023-04-05 11:01 | PM.HEMONCCN ---
Subjective - Subjective Chief complaint: Weakness Patient: known to practice within the last 3 years Consult date: 04/05/23 Requesting Physician: Dr. 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 THERAPY: Bendamustine and Rituxan started 09/02/14. Completed 6 cycles 01/19/2015. Completed 8 cycles 03/24/2015. He then developed disease progression. 2. Received 1 dose of chop with obinutuzumab on 01/01/2018. 3. In received a dose of CVP 01/23. Completed 8 cycles on 06/12/2018. HPI - Consult Narrative Reason for consult: Thrombocytopenia Narrative: Joseph Richard is a 72 year old male with history of lymphoma who has been in remission for several years now admitted for altered mental status secondary to sepsis. Patient was brought in by his son who found him lying on the couch with vomitus all over him. Evaluation in the ED was positive for UTI. CT abdomen showed thick-walled appearance of urinary bladder concerning for cystitis. He had transaminitis and his platelet count was 70 K. This gradually declined to 48 k today. He was found to have acute kidney injury which resolved with IV hydration. He was diagnosed with sepsis secondary to UTI, E coli bacteremia for which she is receiving IV antibiotics. He was noted to have worsening thrombocytopenia and the consultation was called. Patient is now more alert but still unable to provide much of a history. He thinks he is going home today. He denies fever, chills, loss of appetite or weight loss in the preceding weeks. He does not think he has any for further appointments with Dr. Lawrence. Review of Systems - Constitutional Reports as per HPI, Denies fatigue, Denies fever(s), Reports weakness [facility] Medical History: Medical History (Last Reviewed 04/04/23 @ 11:13 by Anastasia Mcclelland, PT) Abnormal computed tomography angiography (CTA) Annual physical exam BPH (benign prostatic hyperplasia) CVA (cerebral vascular accident) Dementia Follicular lymphoma Hearing loss History of CVA (cerebrovascular accident) History of CVA (cerebrovascular accident) HTN (hypertension) Hyperglycemia Hyperlipidemia Hypertension Lumbar spinal stenosis Recurrent UTI Syncope Family History: Family History (Last Reviewed 04/03/23 @ 23:00 by Olya Mart MD) Father Colon cancer HTN (hypertension) Brother Non-Hodgkin lymphoma HTN (hypertension) Sister HTN (hypertension) Mother HTN (hypertension) TIA (transient ischemic attack) Family history: reviewed and not pertinent Surgical History: Surgical History (Last Reviewed 04/04/23 @ 11:13 by Anastasia Mcclelland, PT) H/O colonoscopy No pertinent past surgical history Social History: Social History (Last Reviewed 04/03/23 @ 23:00 by Olya Mart MD) Living Situation History: Household Members: Unknown / Unable to asses Household Members Other:: He mentioned 2 dogs and a person, but not answering now. Housing: Unknown / Unable to asses Housing Other:: Unsure if this is correct. Are you a primary pharmacist critical care to a significant other at home: No Do you presently have visiting nurse or other home services: Do you presently have visiting nurse or other home services comment: Unable to assess, pt. is lethargic. Alcohol History: Unable to assess alcohol history related to: Unable to respond Tobacco History: Patient Tobacco Use Status: Never used Tobacco Smoke Quit Date: over 30 years ago e-Cigarette/Vaping Use: Never Used Advance Directives: Advance Directives Date on File: 08/29/22 Occupation Assessmet: service: No Current occupational status: retired Home Medications and Allergies Current Medications: Current Medications Acetaminophen (Acetaminophen 325 Mg Tablet) 650 mg PO Q6H PRN PRN Reason: Pain, Mild (Pain Scale 1-3) Docusate Sodium (Docusate Sodium 100 Mg Capsule) 100 mg PO DAILY PRN PRN Reason: Constipation Finasteride (Finasteride 5 Mg Tablet) 5 mg PO DAILY [facility] Last Admin: 04/05/23 09:20 Dose: 5 mg Heparin Sodium (Porcine) (Heparin Sodium,Porcine 5,000 Unit/Ml Vial) 5,000 unit SUBCUT Q12H [facility] Last Admin: 04/05/23 10:46 Dose: 5,000 unit Meropenem 1 gm/ Sodium (Chloride) 100 mls @ 200 mls/hr IV Q8H [facility] Last Admin: 04/05/23 10:42 Dose: 200 mls/hr Metoprolol Tartrate (Metoprolol Tartrate 25 Mg Tablet) 25 mg PO BID [facility]; Protocol Last Admin: 04/05/23 09:20 Dose: 25 mg Ondansetron HCl (Ondansetron Hcl 4 Mg/2 Ml Vial) 4 mg IVPUSH Q8H PRN PRN Reason: Nausea and Vomiting Pantoprazole Sodium (Pantoprazole Sodium 40 Mg/10 Ml Vial) 40 mg IVPUSH BID@0630,1630 [facility] Last Admin: 04/05/23 05:49 Dose: 40 mg Pharmacy Consult (Consult Rx Perform Med Rec) 1 each MISCELLANE ONCE PRN PRN Reason: Consult order Sodium Chloride (0.9 % Sodium Chloride Flush 3 Ml Syringe) 3 ml IVFLUSH QSHIFT [facility] Last Admin: 04/05/23 07:25 Dose: Not Given Allergies Allergy/AdvReac Type Severity Reaction Status Date / Time No Known Allergies Allergy Verified 03/08/23 13:44 [No Known Allergies*] Physical Exam Vital signs: Vital Signs Temp 97.2 F 04/05/23 08:00 Pulse 80 04/05/23 08:00 Resp 16 04/05/23 08:00 BP 157/97 H 04/05/23 08:00 Pulse Ox 96 04/05/23 08:00 O2 Del Method Room Air 04/05/23 08:00 Intake & Output 04/04/23 04/05/23 04/05/23 18:59 06:59 18:59 Intake Total 910 / 2110 1200 / 2110 Output Total 2460 / 2460 Balance -1550 / -350 1200 / -350 Urine Output (Average ml/kg/hr) 2.51 2.51 Intake: Intake, IV Amount 910 / 2110 1200 / 2110 Meropenem 1 gm In 0.9 % Sodium 100 / 300 200 / 300 Chloride 100 ml @ 200 mls/hr IV Q8H [facility] Rx#:[id number] Lactated Ringers 1,000 ml @ 125 810 / 1810 1000 / 1810 mls/hr IVCONT .Q8H [facility] Rx#: [id number] Output: Output, Urine Amount 2200 / 2200 Output, Urine Amount (Catheter) 260 / 260 Urethral 260 / 260 Other: NPO Yes Number of Incontinent Voids 2 3 Urine Color Yellow Weight 81.647 kg - Constitutional Present: no acute distress - Routine HEENT Exam Head: Present: normal inspection Eye: Present: EOMI - Routine Neck Exam Present: supple. Absent: lymphadenopathy - Routine Respiratory Exam Absent: accessory muscle use - Routine Cardiovascular Exam Cardiovascular: Present: RRR, S2 - Routine Abdominal Exam Present: soft Hem/Onc Consult Result - Labs CBC & Chem 7: 04/05/23 05:29 04/05/23 05:29 Labs: Short CBC 04/05/23 Range/Units 05:29 WBC 7.2 (4.8-10.8) X10*3/uL Hgb 13.1 L (14.0-18.0) g/dl Hct 38.6 L (42.0-52.0) % Plt Count 48 L (160-400) X10*3/uL BMP 04/05/23 05:29 Sodium 142 Potassium 3.1 L D Chloride 113 H Carbon Dioxide 20 L BUN 20 H Creatinine 0.93 Calcium 8.8 D Assessment and Plan Patient Active problem list reviewed?: Yes (1) Thrombocytopenia Status: Acute Assessment and plan: 1. This is a 72-year-old male with history of follicular lymphoma, currently in remission admitted for E coli bacteremia/sepsis. He has had mild chronic thrombocytopenia, this has worsened because of recent infection. He does not have significant anemia and his kidney functions have normalized after IV hydration. He had 1 episode of fever which has now resolved and his mental status has cleared up. LDH is marginally elevated. There is no suspicion for TTP or DIC. Some of his chronic thrombocytopenia could be related to history of lymphoma and prior treatments with chemo/immunotherapy. I thank you for this consultation. - Time Spent With Patient Time Spent with Patient (in minutes): 15
[2023-04-05 11:13] VITALS: BP 157/97; PULSE 80; O2SAT 96
--- NOTE | 2023-04-05 13:53 | MHC.CM.PN ---
No DC today per MD rounds. Blood cultures are pending. PT REC STR. A referral was sent to [facility]. Patient will transport via [facility].
--- NOTE | 2023-04-05 14:10 | HO.PM.IMPN ---
Subjective Subjective Date of Service: 04/05/23 Interval History: Seen and evaluated this morning More alert and interactive , less confused Denies any pain No fever overnight low sugar and potassium this morning Review of Systems Review of Systems: Yes all other systems are reviewed and are negative Physical Exam Vital Signs: Vital Signs: Last Vital Signs Temp 97.2 F 04/05/23 08:00 Pulse 80 04/05/23 11:13 Resp 16 04/05/23 08:00 BP 157/97 H 04/05/23 11:13 Pulse Ox 96 04/05/23 11:13 O2 Del Method Room Air 04/05/23 08:00 BMI result Body Mass Index 24.4 Const: Other: Constitutional : Awake, interactive with stimulation, weak when speaks, not in distress Neck : Normal inspection, Supple Cardiovascular : RRR, no JVP, no lower extremity edema Respiratory : good bilateral air entry, no crackles, wheezes or rhonchi Gastrointestinal: soft, lax, Normal bowel sounds, Non tender Skin : Warm, Dry, pelayo in place Neurological : Alert & oriented to self only otherwise confused, No focal deficit Objective Data Active Medications Acetaminophen (Acetaminophen 325 Mg Tablet) 650 mg PO Q6H PRN PRN Reason: Pain, Mild (Pain Scale 1-3) Docusate Sodium (Docusate Sodium 100 Mg Capsule) 100 mg PO DAILY PRN PRN Reason: Constipation Finasteride (Finasteride 5 Mg Tablet) 5 mg PO DAILY [facility] Last Admin: 04/05/23 09:20 Dose: 5 mg Documented By: AMRIT Heparin Sodium (Porcine) (Heparin Sodium,Porcine 5,000 Unit/Ml Vial) 5,000 unit SUBCUT Q12H [facility] Last Admin: 04/05/23 10:46 Dose: 5,000 unit Documented By: AMRIT Meropenem 1 gm/ Sodium (Chloride) 100 mls @ 200 mls/hr IV Q8H [facility] Last Infusion: 04/05/23 11:12 Dose: 0 mls/hr Documented By: AMRIT Metoprolol Tartrate (Metoprolol Tartrate 25 Mg Tablet) 25 mg PO BID [facility]; Protocol Last Admin: 04/05/23 09:20 Dose: 25 mg Documented By: AMRIT Ondansetron HCl (Ondansetron Hcl 4 Mg/2 Ml Vial) 4 mg IVPUSH Q8H PRN PRN Reason: Nausea and Vomiting Pantoprazole Sodium (Pantoprazole Sodium 40 Mg/10 Ml Vial) 40 mg IVPUSH BID@0630,0390 [facility] Last Admin: 04/05/23 05:49 Dose: 40 mg Documented By: SARAHI Pharmacy Consult (Consult Rx Perform Med Rec) 1 each MISCELLANE ONCE PRN PRN Reason: Consult order Sodium Chloride (0.9 % Sodium Chloride Flush 3 Ml Syringe) 3 ml IVFLUSH QSHIFT [facility] Last Admin: 04/05/23 07:25 Dose: Not Given Documented By: AMRIT Non-Admin Reason: IV Running Labs 04/05/23 05:29 04/05/23 05:29 Labs: Laboratory Results - last 24 hr 04/04/23 04/04/23 04/04/23 05:36 16:21 16:30 MCV MCH MCHC RDW Plt Count MPV Absolute Nucleated RBC Nucleated RBC % (auto) Neutrophils % (Manual) 73 Band Neutrophils % 20 H Lymphocytes % (Manual) 3 L Monocytes % (Manual) 1 L Metamyelocytes % 3 Abs Neuts (Manual) 8.6 H Lymphocytes # (Manual) 0.3 L Monocytes # (Manual) 0.1 Metamyelocytes # 0.3 Platelet Estimate DECREASED Plt Morphology Comment NORMAL RBC Morphology NOTED Ovalocytes 1+ (5-14) [place] Cells 3+ (>5) Absolute Retic 0.025 L Percent Retic 0.6 Immature Retic Fraction 7.6 Retic Hgb Equivalent 31.3 PT INR Anion Gap Estim Creat Clear Calc Estimated GFR POC Glucose Random Glucose Calcium BETSY, Polyspecific NEGATIVE Positive BETSY Work-up TNP 04/05/23 04/05/23 04/05/23 05:29 05:29 05:29 MCV 83.2 MCH 28.2 MCHC 33.9 RDW 15.4 Plt Count 48 L MPV 12.3 Absolute Nucleated RBC 0.000 Nucleated RBC % (auto) 0.0 Neutrophils % (Manual) Band Neutrophils % Lymphocytes % (Manual) Monocytes % (Manual) Metamyelocytes % Abs Neuts (Manual) Lymphocytes # (Manual) Monocytes # (Manual) Metamyelocytes # Platelet Estimate Plt Morphology Comment RBC Morphology Ovalocytes [place] Cells Absolute Retic Percent Retic Immature Retic Fraction Retic Hgb Equivalent PT 10.7 INR 0.9 Anion Gap 12 Estim Creat Clear Calc 77.6 Estimated GFR > 60 POC Glucose Random Glucose 59 L* Calcium 8.8 D BETSY, Polyspecific Positive BETSY Work-up 04/05/23 07:46 MCV MCH MCHC RDW Plt Count MPV Absolute Nucleated RBC Nucleated RBC % (auto) Neutrophils % (Manual) Band Neutrophils % Lymphocytes % (Manual) Monocytes % (Manual) Metamyelocytes % Abs Neuts (Manual) Lymphocytes # (Manual) Monocytes # (Manual) Metamyelocytes # Platelet Estimate Plt Morphology Comment RBC Morphology Ovalocytes [place] Cells Absolute Retic Percent Retic Immature Retic Fraction Retic Hgb Equivalent PT INR Anion Gap Estim Creat Clear Calc Estimated GFR POC Glucose 131 H Random Glucose Calcium BETSY, Polyspecific Positive BETSY Work-up Microbiology Microbiology Results: Microbiology 04/03/23 00:07 Blood Culture - Final Blood - Venous Escherichia coli 04/02/23 23:00 Blood Culture - Final Blood - Venous Escherichia coli 04/03/23 Unknown Urine Culture - Final Urine clean catch - Urine mcmullen top Escherichia coli Assessment and Plan (1) Thrombocytopenia: Status: Acute (2) Bacteremia due to Gram-negative bacteria: Status: Acute (3) Sepsis: Status: Acute (4) Acute metabolic encephalopathy: Status: Acute (5) Acute UTI: Status: Acute Plan 72-year-old male with past medical history of recurrent UTI and sepsis comes into the hospital after son found him to be confused # sepsis secondary to GNR Bacteremia from UTI Cultures growing E.Coli DC IV Meropenem and start Ceftriaxone ID to follow follow cultures # acute metabolic encephalopathy secondary to acute infection, improving CT negative treat underlying infection baseline alert oriented x3 per son # hypoxic respiratory failure no evidence of pulmonary disease on chest x-ray, no documented hypoxia resolved, on RA # lactic acidosis multifactorial in the setting of dehydration and sepsis and liver injury # coffee-ground emesis reported streaks of coffee-ground on his cool and mouth, son also described 2 episodes of coffee-ground emesis Hb stable, no recurrence of episodes unclear if that was blood or not check occult stool if positive consider GI on PPI follow hemoglobin # HALEY resolved follow BMP # transaminitis secondary to sepsis trended down # acute on chronic thrombocytopenia likely 2/2 sepsis hematology to follow DVT Prophylaxis Heparin subQ Given patient's need for IV antibiotics, IV hydration, and AMS will need overnight inpatient hospital stay for further management and monitoring Time Spent With Patient Time: Total time managing care of this patient today ____ minutes. Quality Stroke Does the patient have a stroke diagnosis?: No VTE Prior VTE?: No VTE Risk Level:: Medical - moderate - high VTE Device Contraindication: N/A - Device Ordered VTE Drug Contraindication: N/A - Med Ordered
[2023-04-05] MEDS: cefTRIAXone sodium 1 GM in 0.9 % Sodium Chloride 50 ML IV (14:25)
[2023-04-05] MEDS: 0.9 % Sodium Chloride Flush 3 ML SYRINGE IVFLUSH ×2 (14:27→19:47)
[2023-04-05 15:02] VITALS: BP 156/86; PULSE 90; RESP 18; TEMP 36.6; O2SAT 96
[2023-04-05 19:06] VITALS: BP 148/90; PULSE 98; RESP 16; TEMP 36.1; O2SAT 95
[2023-04-06 04:00] VITALS: BP 160/98; PULSE 65; RESP 16; TEMP 36.3; O2SAT 96
[2023-04-06 05:25] LABS: Hematocrit 41.4 % (42.0-52.0); Hemoglobin 14.3 g/dl (14.0-18.0); Mean Corpuscular HGB Conc 34.5 g/dl (31.0-36.0); Mean Corpuscular Hemoglobin 28.1 pg (27.0-33.0); Mean Corpuscular Volume 81.3 fL (80.0-98.0); Mean Platelet Volume 11.8 fL (9.4-12.4); Red Blood Count 5.09 X10*6/uL (4.60-5.80); White Blood Count 5.5 X10*3/uL (4.8-10.8)
[2023-04-06 05:26] LABS: Platelet Count 61 X10*3/uL (160-400)
[2023-04-06 05:41] LABS: Anion Gap 11 (12-20); Blood Urea Nitrogen 19 mg/dL (9-16); Calcium 9.1 mg/dL (8.4-10.2); Carbon Dioxide 25 mmol/L (22-29); Chloride 110 mmol/L (96-108); Creatinine Clr Calc Pharmacy 71.4; Estimated Glomerular Filt Rate > 60; Glucose Random 87 mg/dL (60-115); Potassium 3.4 mmol/L (3.3-5.1); Sodium 143 mmol/L (135-145)
[2023-04-06] MEDS: Omeprazole 40 MG CAPSULE.DR PO (05:44)
[2023-04-06 07:45] VITALS: BP 144/96; PULSE 83; RESP 20; TEMP 36.3; O2SAT 95
[2023-04-06] MEDS: Heparin Sodium,Porcine 5,000 UNIT/ML VIAL 5000 UNIT SUBCUT ×2 (08:33→21:23)
[2023-04-06] MEDS: Finasteride 5 MG TABLET PO (08:33)
[2023-04-06] MEDS: Metoprolol Tartrate 25 MG TABLET PO ×2 (08:34→21:24)
[2023-04-06] MEDS: 0.9 % Sodium Chloride Flush 3 ML SYRINGE IVFLUSH ×3 (08:34→21:25)
[2023-04-06] MEDS: Tamsulosin HCL 0.4 MG CAPSULE PO (08:34)
--- NOTE | 2023-04-06 10:49 | P.PNIM_ITS ---
Subjective Subjective Date of Service: 04/06/23 Interval History: Seen and evaluated this morning More alert and interactive , still significantly confused Denies any pain No fever overnight low sugar and potassium this morning Review of Systems Review of Systems: Yes all other systems are reviewed and are negative Physical Exam Vital Signs: Vital Signs: Last Vital Signs Temp 97.3 F 04/06/23 07:45 Pulse 83 04/06/23 07:45 Resp 20 04/06/23 07:45 BP 144/96 H 04/06/23 07:45 Pulse Ox 95 04/06/23 07:45 O2 Del Method Room Air 04/06/23 07:45 BMI result Body Mass Index 24.4 Const: Other: Constitutional : Awake, interactive with stimulation, weak when speaks, not in distress Neck : Normal inspection, Supple Cardiovascular : RRR, no JVP, no lower extremity edema Respiratory : good bilateral air entry, no crackles, wheezes or rhonchi Gastrointestinal: soft, lax, Normal bowel sounds, Non tender Skin : Warm, Dry, pelayo in place Neurological : Alert & oriented to self only otherwise confused, No focal deficit Objective Data Active Medications Acetaminophen (Acetaminophen 325 Mg Tablet) 650 mg PO Q6H PRN PRN Reason: Pain, Mild (Pain Scale 1-3) Docusate Sodium (Docusate Sodium 100 Mg Capsule) 100 mg PO DAILY PRN PRN Reason: Constipation Finasteride (Finasteride 5 Mg Tablet) 5 mg PO DAILY [facility] Last Admin: 04/06/23 08:33 Dose: 5 mg Documented By: MEENU Heparin Sodium (Porcine) (Heparin Sodium,Porcine 5,000 Unit/Ml Vial) 5,000 unit SUBCUT Q12H COUNT [facility] Last Admin: 04/06/23 08:33 Dose: 5,000 unit Documented By: MEENU Ceftriaxone Sodium 1 gm/ (Sodium Chloride) 50 mls @ 100 mls/hr IV Q24H COUNT [facility] Last Infusion: 04/05/23 14:55 Dose: 0 mls/hr Documented By: AMRIT Metoprolol Tartrate (Metoprolol Tartrate 25 Mg Tablet) 25 mg PO BID [facility]; Protocol Last Admin: 04/06/23 08:34 Dose: 25 mg Documented By: MEENU Omeprazole (Omeprazole 40 Mg Teddy.) 40 mg PO DAILY@0630 [facility] Last Admin: 04/06/23 05:44 Dose: 40 mg Documented By: MOLINA Ondansetron HCl (Ondansetron Hcl 4 Mg/2 Ml Vial) 4 mg IVPUSH Q8H PRN PRN Reason: Nausea and Vomiting Pharmacy Consult (Consult Rx Perform Med Rec) 1 each MISCELLANE ONCE PRN PRN Reason: Consult order Sodium Chloride (0.9 % Sodium Chloride Flush 3 Ml Syringe) 3 ml IVFLUSH QSHIFT COUNT [facility] Last Admin: 04/06/23 08:34 Dose: 3 ml Documented By: MEENU Tamsulosin HCl (Tamsulosin Hcl 0.4 Mg Capsule) 0.4 mg PO DAILY COUNT [facility] Last Admin: 04/06/23 08:34 Dose: 0.4 mg Documented By: MEENU Labs 04/06/23 04:55 04/06/23 04:55 Labs: Laboratory Results - last 24 hr 04/06/23 04/06/23 04:55 04:55 MCV 81.3 MCH 28.1 MCHC 34.5 RDW 15.0 Plt Count 61 L D MPV 11.8 Absolute Nucleated RBC 0.000 Nucleated RBC % (auto) 0.0 Anion Gap 11 L Estim Creat Clear Calc 71.4 Estimated GFR > 60 Random Glucose 87 Calcium 9.1 Microbiology Microbiology Results: Microbiology 04/03/23 00:07 Blood Culture - Final Blood - Venous Escherichia coli 04/02/23 23:00 Blood Culture - Final Blood - Venous Escherichia coli 04/03/23 Unknown Urine Culture - Final Urine clean catch - Urine mcmullen top Escherichia coli Assessment and Plan (1) Thrombocytopenia: Status: Acute (2) Bacteremia due to Gram-negative bacteria: Status: Acute (3) Acute metabolic encephalopathy: Status: Acute (4) Sepsis: Status: Acute (5) Acute UTI: Status: Acute Plan 72-year-old male with past medical history of recurrent UTI and sepsis comes into the hospital after son found him to be confused # sepsis secondary to GNR Bacteremia from UTI Cultures growing E.Coli DC IV Meropenem and start Ceftriaxone ID input appreciated get URology eval Start Tamsulosin for delayed emptying follow cultures # acute metabolic encephalopathy secondary to acute infection, improving but still confused about time and place CT negative for acute findings but showing volume loss treat underlying infection recurrent reorientation # Physical deconditioning PT rec STR placement # hypoxic respiratory failure no evidence of pulmonary disease on chest x-ray, no documented hypoxia resolved, on RA # lactic acidosis multifactorial in the setting of dehydration and sepsis and liver injury # coffee-ground emesis reported streaks of coffee-ground on his cool and mouth, son also described 2 episodes of coffee-ground emesis Hb stable, no recurrence of episodes on PPI follow hemoglobin # HALEY resolved follow BMP # transaminitis secondary to sepsis trended down # acute on chronic thrombocytopenia likely 2/2 sepsis hematology to follow DVT Prophylaxis Heparin subQ Given patient's need for IV antibiotics and AMS will need overnight inpatient hospital stay for further management and monitoring pending safe discharge plan Time Spent With Patient Time: Total time managing care of this patient today ____ minutes. Quality Stroke Does the patient have a stroke diagnosis?: No VTE Prior VTE?: No VTE Risk Level:: Medical - moderate - high VTE Device Contraindication: N/A - Device Ordered VTE Drug Contraindication: N/A - Med Ordered
[2023-04-06 13:49] LABS: Prostate Specific Antigen 41.62 ng/mL (<0.05-4.0)
[2023-04-06] MEDS: cefTRIAXone sodium 1 GM in 0.9 % Sodium Chloride 50 ML IV (13:58)
--- NOTE | 2023-04-06 14:12 | MHC.CM.PN ---
JESSICA LUNSFORD TO RE-EVALUATE FOR A BED OFFER WITH NEW P.T. NOTE. FACILITY FEELS THAT HE WAS NOT YET APPROPRIATE, PAITENT WAS NOT FOLLOWING COMMANDS MENTATION SEEMS IMPROVED TODAY PATIENT ANSWERING QUESTIONS AND STATING HE IS WILLING TO GO TO [facility] IF THEY OFFER BUT DOES NOT WANT VLADIMIR CRUZ
[2023-04-06 15:14] VITALS: BP 147/85; PULSE 85; RESP 20; TEMP 36.4; O2SAT 96
[2023-04-06 20:00] VITALS: BP 154/88; PULSE 74; RESP 16; TEMP 36.2; O2SAT 96
[2023-04-07 04:00] VITALS: BP 162/89; PULSE 83; RESP 16; TEMP 36.5; O2SAT 97
[2023-04-07] MEDS: Omeprazole 40 MG CAPSULE.DR PO (05:50)
[2023-04-07 07:05] LABS: Anion Gap 12 (12-20); Blood Urea Nitrogen 15 mg/dL (9-16); Calcium 8.6 mg/dL (8.4-10.2); Carbon Dioxide 24 mmol/L (22-29); Chloride 109 mmol/L (96-108); Estimated Glomerular Filt Rate > 60; Glucose Random 86 mg/dL (60-115); Hematocrit 41.1 % (42.0-52.0); Hemoglobin 14.2 g/dl (14.0-18.0); Mean Corpuscular HGB Conc 34.5 g/dl (31.0-36.0); Mean Corpuscular Volume 80.9 fL (80.0-98.0); Mean Platelet Volume 11.4 fL (9.4-12.4); Red Blood Count 5.08 X10*6/uL (4.60-5.80); Red Cell Distribution Width 14.6 % (11.0-16.0); Sodium 142 mmol/L (135-145); White Blood Count 3.2 X10*3/uL (4.8-10.8)
[2023-04-07 07:07] LABS: Platelet Count 78 X10*3/uL (160-400)
[2023-04-07 07:10] VITALS: BP 168/96; PULSE 81; RESP 18; TEMP 36.4; O2SAT 97
[2023-04-07] MEDS: Metoprolol Tartrate 25 MG TABLET PO ×2 (08:07→20:20)
[2023-04-07] MEDS: 0.9 % Sodium Chloride Flush 3 ML SYRINGE IVFLUSH (08:07)
[2023-04-07] MEDS: Finasteride 5 MG TABLET PO (08:07)
[2023-04-07] MEDS: Potassium Chloride Packet 20 MEQ PACKET 40 MEQ PO ×2 (08:07→10:15)
[2023-04-07] MEDS: Tamsulosin HCL 0.4 MG CAPSULE PO (08:07)
--- NOTE | 2023-04-07 09:52 | P.PNIM_ITS ---
Subjective Subjective Date of Service: 04/07/23 Interval History: Seen and evaluated this morning alert and interactive still significantly confused Low K Denies any pain No fever overnight Review of Systems Review of Systems: Yes all other systems are reviewed and are negative Physical Exam Vital Signs: Vital Signs: Last Vital Signs Temp 97.5 F 04/07/23 07:10 Pulse 81 04/07/23 07:10 Resp 18 04/07/23 07:10 BP 168/96 H 04/07/23 07:10 Pulse Ox 97 04/07/23 07:10 O2 Del Method Room Air 04/07/23 07:10 BMI result Body Mass Index 24.4 Const: Other: Constitutional : Awake, interactive , not in distress Neck : Normal inspection, Supple Cardiovascular : RRR, no JVP, no lower extremity edema Respiratory : good bilateral air entry, no crackles, wheezes or rhonchi Gastrointestinal: soft, lax, Normal bowel sounds, Non tender Skin : Warm, Dry, pelayo in place Neurological : Alert & oriented to self only otherwise confused, clear speech, No focal deficit Objective Data Active Medications Acetaminophen (Acetaminophen 325 Mg Tablet) 650 mg PO Q6H PRN PRN Reason: Pain, Mild (Pain Scale 1-3) Docusate Sodium (Docusate Sodium 100 Mg Capsule) 100 mg PO DAILY PRN PRN Reason: Constipation Finasteride (Finasteride 5 Mg Tablet) 5 mg PO DAILY [facility] Last Admin: 04/07/23 08:07 Dose: 5 mg Documented By: PENNY Heparin Sodium (Porcine) (Heparin Sodium,Porcine 5,000 Unit/Ml Vial) 5,000 unit SUBCUT Q12H [facility] Last Admin: 04/06/23 21:23 Dose: 5,000 unit Documented By: NEHEMIAS Ceftriaxone Sodium 1 gm/ (Sodium Chloride) 50 mls @ 100 mls/hr IV Q24H [facility] Last Infusion: 04/06/23 14:43 Dose: 0 mls/hr Documented By: MEENU Metoprolol Tartrate (Metoprolol Tartrate 25 Mg Tablet) 25 mg PO BID [facility]; Protocol Last Admin: 04/07/23 08:07 Dose: 25 mg Documented By: PENNY Omeprazole (Omeprazole 40 Mg Teddy.) 40 mg PO DAILY@0630 [facility] Last Admin: 04/07/23 05:50 Dose: 40 mg Documented By: NEHEMIAS Ondansetron HCl (Ondansetron Hcl 4 Mg/2 Ml Vial) 4 mg IVPUSH Q8H PRN PRN Reason: Nausea and Vomiting Pharmacy Consult (Consult Rx Perform Med Rec) 1 each MISCELLANE ONCE PRN PRN Reason: Consult order Potassium Chloride (Potassium Chloride Packet 20 Meq Packet) 40 meq PO Q2H [facility] Stop: 04/07/23 10:01 Last Admin: 04/07/23 08:07 Dose: 40 meq Documented By: PENNY Sodium Chloride (0.9 % Sodium Chloride Flush 3 Ml Syringe) 3 ml IVFLUSH QSHIFT [facility] Last Admin: 04/07/23 08:07 Dose: 3 ml Documented By: PENNY Tamsulosin HCl (Tamsulosin Hcl 0.4 Mg Capsule) 0.4 mg PO DAILY [facility] Last Admin: 04/07/23 08:07 Dose: 0.4 mg Documented By: PENNY Labs 04/07/23 05:28 04/07/23 05:28 Labs: Laboratory Results - last 24 hr 04/06/23 04/07/23 04/07/23 12:58 05:28 05:28 MCV 80.9 MCH 28.0 MCHC 34.5 RDW 14.6 Plt Count 78 L D MPV 11.4 Absolute Nucleated RBC 0.000 Nucleated RBC % (auto) 0.0 Anion Gap 12 Estim Creat Clear Calc 83.0 Estimated GFR > 60 Random Glucose 86 Calcium 8.6 Prostate Specific Ag 41.62 H Assessment and Plan (1) Thrombocytopenia: Status: Acute (2) Bacteremia due to Gram-negative bacteria: Status: Acute (3) Acute metabolic encephalopathy: Status: Acute (4) Acute UTI: Status: Acute (5) Sepsis: Status: Acute Plan 72-year-old male with past medical history of recurrent UTI and sepsis comes into the hospital after son found him to be confused # sepsis secondary to GNR Bacteremia from UTI Cultures growing E.Coli DC IV Meropenem and start Ceftriaxone ID input appreciated get URology eval Start Tamsulosin for delayed emptying follow cultures # acute metabolic encephalopathy secondary to acute infection, improving but still confused about time and place CT negative for acute findings but showing volume loss treat underlying infection recurrent reorientation # Physical deconditioning PT rec STR placement # hypoxic respiratory failure no evidence of pulmonary disease on chest x-ray, no documented hypoxia resolved, on RA # lactic acidosis multifactorial in the setting of dehydration and sepsis and liver injury # coffee-ground emesis reported streaks of coffee-ground on his cool and mouth, son also described 2 episodes of coffee-ground emesis Hb stable, no recurrence of episodes on PPI follow hemoglobin # HALEY resolved follow BMP # Hypokalemia give replacement # transaminitis secondary to sepsis trended down # acute on chronic thrombocytopenia likely 2/2 sepsis hematology to follow DVT Prophylaxis Heparin subQ Given patient's need for IV antibiotics and AMS will need overnight inpatient hospital stay for further management and monitoring pending safe discharge plan Time Spent With Patient Time: Total time managing care of this patient today ____ minutes. Quality Stroke Does the patient have a stroke diagnosis?: No VTE Prior VTE?: No VTE Risk Level:: Medical - moderate - high VTE Device Contraindication: N/A - Device Ordered VTE Drug Contraindication: N/A - Med Ordered
[2023-04-07] MEDS: Heparin Sodium,Porcine 5,000 UNIT/ML VIAL 5000 UNIT SUBCUT ×2 (10:16→20:20)
[2023-04-07] MEDS: cefTRIAXone sodium 1 GM in 0.9 % Sodium Chloride 50 ML IV (14:38)
[2023-04-07 15:11] VITALS: BP 165/98; PULSE 88; RESP 17; TEMP 36.4; O2SAT 98
[2023-04-07 19:43] VITALS: BP 139/94; PULSE 106; RESP 20; TEMP 36.5; O2SAT 95
--- NOTE | 2023-04-07 22:41 | PM.UROCN ---
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 E coli May represent recurrent prostatitis Primary coli infection have shown resistance to numerous antibiotics Recommend switch from tamsulosin to doxazosin noted maximized bladder emptying May require Dowling catheter Continue antibiotics for 2 weeks minimum Review of Systems Constitutional: Constitutional: Reports as per HPI and Reports no additional constitutional complaints Cardiovascular: Cardiovascular: Reports as per HPI and Reports no additional cardiovascular complaints Respiratory: Respiratory: Reports as per HPI and Reports no additional respiratory complaints Gastrointestinal: Gastrointestinal: Reports as per HPI and Reports no additional gastrointestinal complaints Genitourinary: Genitourinary: Reports as per HPI Musculoskeletal: Musculoskeletal: Reports no additional musculoskeletal complaints and Reports as per HPI Neurologic: Reports system reviewed and no additional complaints, except as documented and Reports as per HPI PMFSH Past Medical History Medical History Abnormal computed tomography angiography (CTA) Annual physical exam BPH (benign prostatic hyperplasia) CVA (cerebral vascular accident) Dementia Follicular lymphoma Hearing loss History of CVA (cerebrovascular accident) History of CVA (cerebrovascular accident) HTN (hypertension) Hyperglycemia Hyperlipidemia Hypertension Lumbar spinal stenosis Recurrent UTI Syncope Family History Family History Father Colon cancer HTN (hypertension) Brother Non-Hodgkin lymphoma HTN (hypertension) Sister HTN (hypertension) Mother HTN (hypertension) TIA (transient ischemic attack) Family history: reviewed and not pertinent Surgical History Surgical History H/O colonoscopy No pertinent past surgical history Social History Social History Household Members: Unknown / Unable to assess Household Members Other:: He mentioned 2 dogs and a person, but not answering now. Housing: Unknown / Unable to assess Housing Other:: Unsure if this is correct. Are you a primary certified caregiver to a significant other at home: No Unable to assess alcohol history related to: Unable to respond Alcohol intake: never Patient Tobacco Use Status: Never used Tobacco e-Cigarette/Vaping Use: Never Used Advance Directives Date on File: 08/29/22 service: No Current occupational status: retired Cognitive needs: No Hearing needs: Yes Vision needs: No Meds Allergies Allergy/AdvReac Type Severity Reaction Status Date / Time No Known Allergies Allergy Verified 03/08/23 13:44 [No Known Allergies*] Active Medications: Current Medications Acetaminophen (Acetaminophen 325 Mg Tablet) 650 mg PO Q6H PRN PRN Reason: Pain, Mild (Pain Scale 1-3) Docusate Sodium (Docusate Sodium 100 Mg Capsule) 100 mg PO DAILY PRN PRN Reason: Constipation Finasteride (Finasteride 5 Mg Tablet) 5 mg PO DAILY [facility] Last Admin: 04/07/23 08:07 Dose: 5 mg Heparin Sodium (Porcine) (Heparin Sodium,Porcine 5,000 Unit/Ml Vial) 5,000 unit SUBCUT Q12H [facility] Last Admin: 04/07/23 20:20 Dose: 5,000 unit Ceftriaxone Sodium 1 gm/ (Sodium Chloride) 50 mls @ 100 mls/hr IV Q24H [facility] Last Infusion: 04/07/23 15:29 Dose: Infused Metoprolol Tartrate (Metoprolol Tartrate 25 Mg Tablet) 25 mg PO BID [facility]; Protocol Last Admin: 04/07/23 20:20 Dose: 25 mg Omeprazole (Omeprazole 40 Mg Capsule.Dr) 40 mg PO DAILY@0630 [facility] Last Admin: 04/07/23 05:50 Dose: 40 mg Ondansetron HCl (Ondansetron Hcl 4 Mg/2 Ml Vial) 4 mg IVPUSH Q8H PRN PRN Reason: Nausea and Vomiting Pharmacy Consult (Consult Rx Perform Med Rec) 1 each MISCELLANE ONCE PRN PRN Reason: Consult order Sodium Chloride (0.9 % Sodium Chloride Flush 3 Ml Syringe) 3 ml IVFLUSH QSHIFT [facility] Last Admin: 04/07/23 15:30 Dose: Not Given Tamsulosin HCl (Tamsulosin Hcl 0.4 Mg Capsule) 0.4 mg PO DAILY [facility] Last Admin: 04/07/23 08:07 Dose: 0.4 mg Physical Exam Vital Signs: Vital Signs: Last Vital Signs Temp 97.7 F 04/07/23 19:43 Pulse 106 H 04/07/23 19:43 Resp 20 04/07/23 19:43 BP 139/94 H 04/07/23 19:43 Pulse Ox 95 04/07/23 19:43 O2 Del Method Room Air 04/07/23 19:43 BMI result Body Mass Index 24.4 Const: General: cooperative, healthy appearing, comfortable and no acute distress Orientation/consciousness: patient oriented x3 HEENT: Face and sinus: Yes normal facial exam Mouth: moist mucous membranes Neck: Neck: Yes normal visual inspection, Yes full ROM and Yes trachea midline Chest: Chest palpation & inspection: normal inspection of the chest Resp: Effort & Inspection: normal respiratory effort, able to speak in complete sentences and no respiratory distress GI: Inspection: Yes normal to inspection Back/Spine/Pelvis: Cervical Spine: normal cervical lordosis Thoracic/Lumbar Spine: thoracic and lumbar spine normal to inspection Skin: General skin exam: no rashes or lesions noted Neuro: General: patient oriented x3, tone normal and moves all extremities Extrem: General: Yes normal to inspection and Yes capillary refill normal Results Labs 04/07/23 05:28 04/07/23 05:28 Labs: Abnormal lab results 04/07/23 04/07/23 Range/Units 05:28 05:28 WBC 3.2 L (4.8-10.8) X10*3/uL Hct 41.1 L (42.0-52.0) % Plt Count 78 L D (160-400) X10*3/uL Potassium 3.0 L (3.3-5.1) mmol/L Chloride 109 H (96-108) mmol/L Short CBC 04/07/23 Range/Units 05:28 WBC 3.2 L (4.8-10.8) X10*3/uL Hgb 14.2 (14.0-18.0) g/dl Hct 41.1 L (42.0-52.0) % Plt Count 78 L D (160-400) X10*3/uL BMP 04/07/23 05:28 Sodium 142 Potassium 3.0 L Chloride 109 H Carbon Dioxide 24 BUN 15 Creatinine 0.87 Calcium 8.6 Urine 04/03/23 Range/Units 00:07 Urine Color Yellow Urine Appearance Cloudy Urine pH 5.0 (5.0-9.0) Ur Specific [place] 1.010 (1.005-1.025) Urine Protein 30 (1+) H (Neg-Trace) mg/dL Urine Glucose (UA) Negative (Negative) mg/dL All other labs normal. Assessment and Plan (1) Bacteremia due to Gram-negative bacteria: Status: Acute (2) Acute UTI: Status: Acute (3) Sepsis: Status: Acute Plan Antibiotics per culture Time Spent With Patient Time: Total time managing care of this patient today ____ minutes. Procedures Date of Service Date of Service: 04/07/23
[2023-04-08 03:30] VITALS: BP 157/88; PULSE 80; RESP 20; TEMP 36.2; O2SAT 98
[2023-04-08] MEDS: Omeprazole 40 MG CAPSULE.DR PO (06:08)
[2023-04-08 07:30] LABS: Anion Gap 12 (12-20); Blood Urea Nitrogen 13 mg/dL (9-16); Calcium 8.9 mg/dL (8.4-10.2); Carbon Dioxide 22 mmol/L (22-29); Chloride 111 mmol/L (96-108); Creatinine Clr Calc Pharmacy 91.4; Estimated Glomerular Filt Rate > 60; Glucose Random 83 mg/dL (60-115); Potassium 3.2 mmol/L (3.3-5.1); Sodium 142 mmol/L (135-145)
[2023-04-08 07:49] VITALS: BP 120/90; PULSE 82; RESP 18; TEMP 36.4; O2SAT 97
[2023-04-08] MEDS: Metoprolol Tartrate 25 MG TABLET PO (09:36)
[2023-04-08] MEDS: Heparin Sodium,Porcine 5,000 UNIT/ML VIAL 5000 UNIT SUBCUT (09:37)
[2023-04-08] MEDS: Potassium Chloride ER 20 MEQ TAB.ER.PRT 40 MEQ PO (09:37)
[2023-04-08] MEDS: Finasteride 5 MG TABLET PO (09:37)
[2023-04-08] MEDS: 0.9 % Sodium Chloride Flush 3 ML SYRINGE IVFLUSH (09:42)
[2023-04-08 10:58] VITALS: BP 120/90; PULSE 82; O2SAT 97
--- NOTE | 2023-04-08 12:57 | PM.DS ---
DS: Providers Provider Date of Service: 04/08/23 Date of admission: 04/03/23 01:28 Primary care physician: Unknown Physician Consults: 04/03/23 10:44 Consult to Infectious Diseases Routine Consulting Provider: Olya Mart Reason for consultation: GNR Bacteremia 04/04/23 15:56 Consult to Hematology / Oncology Routine Consulting Provider: Radha Gramajo Reason for consultation: Low PLT, Hx Lymphoma, low concern for TTP? for eval. 04/06/23 10:51 Consult to Urology Routine Consulting Provider: Chang Saldana Reason for consultation: Recurrent UTI w bacteremi, delayed bladder emptying for your eval and rec. DS: Diagnosis Discharge Diagnosis (1) Bacteremia due to Gram-negative bacteria: Status: Acute (2) Acute UTI: Status: Acute (3) Sepsis: Status: Acute (4) Thrombocytopenia: Status: Acute (5) Acute metabolic encephalopathy: Status: Acute (6) Coffee ground emesis: Status: Acute (7) Transaminitis: Status: Acute (8) HALEY (acute kidney injury): Status: Acute DS: Summary Hospital Course Hospital Course: Admission note HPI 72 yo with past medical history of BPH, CVA, HTN, HLD, recurrent UTI, with baseline being alert and oriented comes into the hospital with increased confusion.? Spoke to the son over the phone who lives with him full-time.? Son states that he left his father for about half an hour to grab lunch, when he came back, he found his father laying on the couch, with lost over eyes, and vomit all over him, grunting, he then had 2 more episodes of red dark vomitus with what looked like chunks of organs .? Prior to this patient was normal and at his baseline mentation.? According to the son he has not had any acute illness or complaints recently. Unable to get much history from patient himself as he is very confused, unable to even answer questions about review of system On arrival to the ED patient noted to be tachycardic otherwise stable Labs are significant for WBC count of 3.0, hemoglobin of 16, BUN of 20, creatinine of 1.37, lactic acid of 4.6, AST of 296, ALT of 171, alk-phos of 155, troponin negative,? UA positive for leukocyte Estrace, WBC, and urine bacteria Chest x-ray negative, head CT negative, abdomen pelvic CT shows thick-walled appearance of the urinary bladder concerning for L obstruction versus cystitis, partially visualized fluid density structure in the right upper thigh abductor musculature measuring 2.7 x 1.9 cm of uncertain etiology Hospital course # sepsis secondary to GNR Bacteremia from UTI. blood and urine cultures grew E.Coli. Treated primarly with IV Meropenem, changed to IV Ceftriaxone as he was evaluated by ID specialist. Found to have high PSA suggestive of enlarged prostate\prostatitis. evaluated by Urologist who recommended to finish 2 weeks of antibiotics and to start Doxazosin . # acute metabolic encephalopathy on secondary to acute infection, improved but still confused about time and place which seems to be his baseline. ?CT negative for acute findings but showing volume loss and microangiopathic disease. recurrent reorientation. # Physical deconditioning PT rec STR placement # lactic acidosis multifactorial in the setting of dehydration and sepsis and liver injury # coffee-ground emesis reported streaks of coffee-ground on his cool and mouth, Hb stable, no recurrence of episodes. Started on PPI. Hemoglobin stable. # HALEY Noticed at time of presentation. resolved during hospital stay with IVF usage and holding nephrotoxins. # Hypokalemia resolved # transaminitis ?secondary to sepsis. trended down during hosptial stay with INR returning back to normal level. # acute on chronic thrombocytopenia secondary to sepsis as hematology evaluated the patient and doesnt think it is related to his lymphoma history. started to improve prior to discharge. Continue antibiotics for 10 more days Start Doxazosin 4 mg bedtime Omeprazole for stomach acidity To follow with dr Saldana as outpatient Time Spent with Patient Time attestation: Total time managing care of this patient today ____ minutes. Discharge coordination time: Greater than 30 minutes Quality: Safe Use of Opioids Does Pt have an Active Cancer Diagnosis on the Problem List?: No Quality: Stroke Does the patient have a stroke diagnosis?: No Physical Exam Vital Signs: Vital Signs: Last Vital Signs Temp 97.6 F 04/08/23 07:49 Pulse 82 04/08/23 10:58 Resp 18 04/08/23 07:49 BP 120/90 H 04/08/23 10:58 Pulse Ox 97 04/08/23 10:58 O2 Del Method Room Air 04/08/23 07:49 BMI result Body Mass Index 24.4 Const: Other: Constitutional : Awake, interactive , not in distress Neck : Normal inspection, Supple Cardiovascular : RRR, no JVP, no lower extremity edema Respiratory : good bilateral air entry, no crackles, wheezes or rhonchi Gastrointestinal: soft, lax, Normal bowel sounds, Non tender Skin : Warm, Dry Neurological : Alert & oriented to self only otherwise confused, clear speech, No focal deficit DS: Data Data Completed and Pending Completed studies during hospitalization [Text1]: Procedures Insertion of Infusion Device into Upper Vein, Percutaneous Approach (11/18/22) Labs on day of discharge: Laboratory Results - last 24 hr 04/08/23 05:29 Sodium 142 Potassium 3.2 L Chloride 111 H Carbon Dioxide 22 Anion Gap 12 BUN 13 Creatinine 0.79 Estim Creat Clear Calc 91.4 Estimated GFR > 60 Random Glucose 83 Calcium 8.9 Imaging Chest x-ray: Radiologist's impression: ITS Impressions Chest X-Ray 04/02/23 23:14 IMPRESSION: No acute cardiopulmonary findings. Abdomen/Pelvis CT 04/03/23 02:05 IMPRESSION: 1. Thick-walled appearance of the urinary bladder, which could be due to chronic outlet obstruction versus cystitis in the proper clinical setting. 2. Partially visualized fluid density structure in the upper right thigh adductor musculature measuring 2.7 x 1.9 cm. This is of uncertain etiology and could be further assessed with MRI. 3. Redemonstrated retroperitoneal adenopathy, similar to 12/03/2021. 4. Enlarged prostate gland. Head CT 04/03/23 02:05 IMPRESSION: No acute intracranial pathology. Chronic small vessel ischemic disease and volume loss. Chest CT 04/03/23 06:48 IMPRESSION: Small ill-defined area of infiltrate/mass in the right upper lobe with bibasilar atelectasis. Follow-up CT scan of the chest is recommended in 3 months. Fleischner guidelines were followed. Discharge Plan Discharge Anticipated Discharge Date/Time: 04/08/23 12:50 Patient Disposition: [facility] Discharge Diagnosis: Sepsis , urine infection, bacteremia Prostate problem Referrals: Physician,Unknown J [Primary Care Provider] - 1 Week Discharge Medications: New omeprazole 40 mg Capsule,Delayed Release(Dr/Ec) 40 mg PO DAILY@0630 Qty: 30 0RF doxazosin 2 mg Tablet 4 mg PO BEDTIME Qty: 60 0RF Protocol: Hold for SBP< HOLD for SBP < : 90 cefuroxime axetil 500 mg tablet 500 mg PO BID Qty: 20 0RF Continued (DME) Depend Underwear For Men Cosmo- Misc See Rx Instructions .MEDSUPPLY Qty: 64 11RF Rx Instructions: As directed-size sm/med (DME) Washable bed pad Medium See Rx Instructions .Route .MEDSUPPLY Qty: 10 0RF Rx Instructions: As directed atorvastatin 40 mg tablet 40 mg PO DAILY Qty: 90 3RF finasteride 5 mg tablet 5 mg PO DAILY 90 Days Qty: 90 1RF Rx Instructions: Take medication alternating calendar months metoprolol tartrate 50 mg tablet 50 mg PO BID Qty: 180 3RF methenamine hippurate 1 gram tablet 1 g PO daily 90 Days Qty: 90 1RF Discharge Orders: Discharge Order (Routine); Ordered 04/08/23 Ordered By: Camelia Ward Diet: Advance to usual diet Activity on Discharge: As tolerated Stand Alone Forms: Patient Portal Discharge page Care Plan Goals: Read below Health Concerns: Read below Plan of Treatment: Read below Assessment: You were admitted to the hospital for evaluation of altered mentation. found to have sepsis from urine infection causing encephalopathy. treated with IV antibiotics as urine and blood cultures grew bacteria called E.Coli. responded well over the course of hospital stay. Seen by urologist who recommended starting Doxazosin for prostate enlargement. Continue antibiotics for 10 more days Start Doxazosin 4 mg bedtime Omeprazole for stomach acidity To follow with dr Saldana as outpatient
--- NOTE | 2023-04-08 14:14 | MHC.CM.PN ---
DP: IMM DELIVERED, EXPLAINED TO SON FLOYD VIA TELEPHONE AND WHITE COPY TO BE MAILED. [facility] HAS OFFERED A BED FOR STR/SON/HCP ACCEPTS BED OFFER. RN AWARE. BLS TRANSPORT BOOKED FOR 3: 30 PM VIA [facility].
[2023-04-08 15:17] VITALS: BP 150/90; PULSE 76; RESP 18; TEMP 36.8; O2SAT 98
--- NOTE | 2023-04-08 15:40 | MHC.SL.SWA ---
Speech Pathologist Impression: Risk of Aspiration Due to: Poor PO Intake Dysphasia Diet Status: Recommend Patient continue on current, least restrictive diet with Regular food and thin liquids pills whole with liquid or puree. Recommend PLATE MAKER discontinue at this time. Liquid Consistency and Strategies for Safe Swallow: Liquid Intake Recommendation: Thin Liquid Intake Strategies: Small Sips Solid Food Consistency: Dietary Recommendations: Regular Additional Modifications to Solid Foods: Avoid difficult to chew solids Oral Medication Intake: Whole with Liquid Please contact the pharmacy regarding appropriate crushable or liquid drug formulations that are available whenever modified delivery is recommended. Compensatory Strategies and Precautions to be Taken for Safe Swallow: Sitting Upright (90 deg) Liquids from Cup Liquids from Straw Small Bites and Sips Alternate Liquids/Solids Supervision While Eating and Drinking for Safe Swallow: None Needed Foods to Avoid: Large uncut pieces of meat, difficult to chew solids. Swallowing Recommended Treatments: Compens. Strategy Educat. Recommendation for Speech: Inpatient Speech Therapy Comment: Patient seen during lunch meal. Patient had already eaten mostly what he wanted from the meal at the onset of treatment, which was only a small amount of food on tray. Patient had chosen a chopped southwestern salad for lunch, had CO that it was spicy and not to his liking. Patient was asked to take a couple of bites of the meal, with patient producing a mildly prolonged oral phase/mastication, followed by timely swallow with no clinical signs of aspiration. Patient was also observed taking sips of liquid by straw with no difficulties noted. Patient reports that he has had no difficulties during stay, has been eating well, although he had c/o of sores which had developed on lips. Recommend Patient continue on current, least restrictive diet with Regular food and thin liquids pills whole with liquid or puree. Recommend PLATE MAKER discontinue at this time. Frequency/Duration: Date Range for Service Req: Timeline to reassess: Compilation Clerk Clinican/Clinical Fellow: No Supervisory Statement: I have reviewed and agree with the student/clinical fellow's documentation: N/A Speech Language Pathologist: Dominique Mayer M.A., CCC-PLATE MAKER
[2023-04-08 16:13] LABS: Haptoglobin 127 mg/dL (43-212)
--- NOTE | 2023-04-08 16:26 | P.CDIM_ITS ---
PROVIDER RESPONSE TEXT: To clarify, the appropriate diagnosis supported by the clinical indicators: Acute respiratory failure with hypoxia, resolved QUERY TEXT: PHYSICIAN'S DOCUMENTATION REQUEST Date of Query: 04/08/2023 11:45 AM EDT Patient Name: Joseph Richard Admit Date: 04/03/2023 Dear Camelia Ward, A review of the medical record indicates additional documentation may be needed. Please review below and update the documentation accordingly. Clinical indicators: Plan: hypoxic respiratory failure No evidence of pulmonary disease on chest x-ray, no documented hypoxia Resolved, on RA 04/03 - High flow NC to Room air Based on the above information and the recognized standard for respiratory failure could you please v erify this diagnoses is still accurate and reflective of the patient s condition to ensure quality of the medical record. Acute respiratory failure with hypoxia, resolved Other Other (explain)Clinically unable to determine (explain)Thank you, Sera Bone, CCS, CDIS Use of terms such as suspected, likely, concern for, or probable (associated with a specific diagnosi s that is being evaluated, monitored, or treated as if it exists) are acceptable and can be coded in the inpatient se tting, when documented at the time of discharge. Please use your independent medical judgment in providing your response. THIS QUERY IS PART OF THE PERMANENT MEDICAL RECORD
== END 2023-04-08 15:50 | disposition skilled nursing facility (03) | DRG 871 ==
LOC: HO.ED 04-03 00:01 → HO.EDOVER 04-03 01:32 → HO.S3 04-03 07:27
PROVIDERS: Internal Medicine Gastroenterology; Admitting Provider Internal Medicine; Emergency Provider Internal Medicine; Visit Provider Student in an Organized Health Care Education/Training Program
DX: A41.51 Sepsis due to Escherichia coli [E. coli] (principal); G93.41 Metabolic encephalopathy; J96.01 Acute respiratory failure with hypoxia; N39.0 Urinary tract infection, site not specified; N17.9 Acute kidney failure, unspecified; I69.354 Hemiplegia and hemiparesis following cerebral infarction affecting left non-dominant side; E87.21 Acute metabolic acidosis; K92.0 Hematemesis; E87.6 Hypokalemia; D69.6 Thrombocytopenia, unspecified; E86.0 Dehydration; F03.90 Unspecified dementia, unspecified severity, without behavioral disturbance, psychotic disturbance, mood disturbance, and anxiety; Z85.72 Personal history of non-Hodgkin lymphomas; Z20.822 Contact with and (suspected) exposure to COVID-19; Z79.899 Other long term (current) drug therapy
CPT/HCPCS: 36415; 70450; 71045; 71250; 74176; 80048; 80053; 80076; 80143; 81001; 82140; 82550; 82947; 83010; 83605; 83615; 83735; 84100; 84153; 84300; 84484; 84550; 85007; 85025; 85027; 85045; 85610; 85652; 86704; 86706; 86709; 86803; 86880; 87040; 87077; 87086; 87088; 87186; 87205; 87340; 87635; 89190; 92526; 92610; 93005; 97110; 97116; 97162; 97530; 99285; C1758; J0696; J1643; J2185; J2405

== ENCOUNTER → 2023-04-02 22:55 | Outpatient (BNV) | payer MEDICARE, MEDICAID, SELFPAY | PROVIDERS: Admitting Provider Internal Medicine; Emergency Provider Internal Medicine; Visit Provider Internal Medicine Cardiovascular Disease | DX: R41.82 Altered mental status, unspecified (principal) | CPT/HCPCS: 93010 ==

== ENCOUNTER → 2023-04-03 01:28 | Outpatient (BNV) | payer MEDICARE, MEDICAID, SELFPAY | PROVIDERS: Admitting Provider Internal Medicine; Emergency Provider Internal Medicine; Visit Provider Internal Medicine | DX: A41.9 Sepsis, unspecified organism (principal); D69.6 Thrombocytopenia, unspecified; N17.9 Acute kidney failure, unspecified; N39.0 Urinary tract infection, site not specified; G93.41 Metabolic encephalopathy; K92.0 Hematemesis; R74.01 Elevation of levels of liver transaminase levels | CPT/HCPCS: 99223; 99232; 99239; 99499 ==

== ENCOUNTER → 2023-04-03 01:28 | Outpatient (BNV) | payer MEDICARE, MEDICAID, SELFPAY | PROVIDERS: Admitting Provider Internal Medicine; Emergency Provider Internal Medicine; Visit Provider Urology | DX: R78.81 Bacteremia (principal); N39.0 Urinary tract infection, site not specified; A41.9 Sepsis, unspecified organism | CPT/HCPCS: 99223 ==

== ENCOUNTER → 2023-04-03 01:28 | Outpatient (BNV) | payer MEDICARE, MEDICAID, SELFPAY | PROVIDERS: Admitting Provider Internal Medicine; Emergency Provider Internal Medicine; Visit Provider Internal Medicine | DX: D69.6 Thrombocytopenia, unspecified (principal); Z85.72 Personal history of non-Hodgkin lymphomas | CPT/HCPCS: 99222 ==

== ENCOUNTER → 2023-04-03 01:28 | Outpatient (BNV) | payer MEDICARE, MEDICAID, SELFPAY | PROVIDERS: Admitting Provider Internal Medicine; Emergency Provider Internal Medicine; Visit Provider Internal Medicine | DX: G93.41 Metabolic encephalopathy (principal); A41.9 Sepsis, unspecified organism; N39.0 Urinary tract infection, site not specified | CPT/HCPCS: 99222 ==

== ENCOUNTER 2023-05-01 13:31 | Outpatient (AMB) | payer MEDICARE, MEDICAID, SELFPAY ==
--- NOTE | 2023-05-01 13:39 | A.OFFPC_ITS ---
Vital Signs 05/01/23 13:41 Weight 155 lb 2 oz BP 110/68 Blood Pressure Location Lt brachial Position Sitting Respiration 18 Pulse 71 Pulse Source Pulse Oximeter Pulse Oximetry (%) 100 Oxygen Delivery Method Room Air Intake Visit Reasons: [facility]/04-19/UTI Ratchet Setter Required: No Allergies No Known Allergies [No Known Allergies*] Allergy (Verified 05/01/23 13:42) Medication List - Last Reconciled 05/01/23 by Lissy Carter RN atorvastatin 40 mg PO DAILY cefuroxime axetil 500 mg PO BID Depend Underwear For Men Sm- (diaper,brief,adult,disposable) As directed-size sm/med NS doxazosin 4 mg See Protocol PO BEDTIME finasteride 5 mg PO DAILY 90 days methenamine hippurate 1 g PO daily 90 days metoprolol tartrate 50 mg PO BID omeprazole 40 mg PO DAILY@0630 [Washable bed pad As directed] Tobacco use date assessed: 05/01/23 Fall risk assessment: 2 + Falls in past year Last assessed Fall Risk: 05/01/23 Dental Screening Dental Screen Date: 05/01/23 Did you have a dental visit in the last 12 months?: No Did you have a dental problem in the last 6 months where you did not have access to dental care?: Yes Was dental information given to patient?: Yes HPI [facility]/04-19/UTI HPI Details Pt presents for f/u hospitalization/SNF for urosepsis. Pt follows up with urologist regularly for urinary incontinence/BPH and has been on suppressing dose of antibiotic. According to patient's son he has not been drinking enough fluids and has been behaving difficult at home. He thinks his father is depressed and patient is willing to try antidepressant. He denies suicidal ideation. [facility] Medical History Abnormal computed tomography angiography (CTA) Annual physical exam BPH (benign prostatic hyperplasia) CVA (cerebral vascular accident) Dementia Follicular lymphoma Hearing loss History of CVA (cerebrovascular accident) History of CVA (cerebrovascular accident) HTN (hypertension) Hyperglycemia Hyperlipidemia Hypertension Lumbar spinal stenosis Recurrent UTI Syncope Thrombocytopenia Surgical History H/O colonoscopy No pertinent past surgical history Family History Father Colon cancer HTN (hypertension) Brother Non-Hodgkin lymphoma HTN (hypertension) Sister HTN (hypertension) Mother HTN (hypertension) TIA (transient ischemic attack) Social History Household Members: Unknown / Unable to assess Household Members Other:: He mentioned 2 dogs and a person, but not answering now. Housing: Unknown / Unable to assess Housing Other:: Unsure if this is correct. Are you a primary managed care liaison to a significant other at home: No Unable to assess alcohol history related to: Unable to respond Alcohol intake: never Patient Tobacco Use Status: Former Tobacco user Quit Date: over 30 years ago e-Cigarette/Vaping Use: Never Used Advance Directives Date on File: 08/29/22 service: No Current occupational status: retired Cognitive needs: No Hearing needs: Yes Vision needs: No Questionnaire PHQ-9 Over the last 2 weeks, how often have you been bothered by any of the following problems? 1. Little interest or pleasure in doing things: several days 2. Feeling down, depressed, or hopeless: several days 3. Trouble falling or staying asleep, or sleeping too much: not at all 4. Feeling tired or having little energy: several days 5. Poor appetite or overeating: not at all 6. Feeling bad about yourself - or that you are a failure or have let yourself or your family down: not at all 7. Trouble concentrating on things, such as reading the newspaper or watching television: not at all 8. Moving or speaking so slowly that other people could have noticed. Or the opposite - being so fidgety or restless that you have been moving around a lot more than usual: not at all 9. Thoughts that you would be better off or of hurting yourself in some way: not at all Total score: 3 91979 - PHQ-9 Billing: Yes Source: Developed by Drs. Jose Manuel Acosta, Perla Kerr, Terence Lorenzana and colleagues, with an educational kamaljit from [employer]. Thrive Questionnaire Date Thrive assessed: 04/03/23 AUDIT C Alcohol Use Questionnaire (AUDIT-C) 1. How often do you have a drink containing alcohol?: Never 3. How often do you have six or more drinks on one occasion?: Never Total Score: 0 RUBENS-7 AMB Questionnaire RUBENS-7 Date RUBENS - 7 assessed: 05/01/23 Feeling nervous, anxious, or on edge: 1 = Several days Not being able to stop or control worryin = Several days Worrying too much about different things: 0 = Not at all Trouble relaxin = Not at all Being so restless that it is hard to sit still: 0 = Not at all Becoming easily annoyed or irritable: 0 = Not at all Feeling afraid as if something awful might happen: 0 = Not at all Total RUBENS-7 score (0-4 normal; 5-9 mild; 10-14 moderate; 15-21 severe): 2 Source: Developed by Drs. Jose Manuel Acosta, Perla Kerr, Terence Lorenzana and colleagues, with an educational kamaljit from [employer]. RUBENS-7 Assessment Billing RUBENS-7 Assessment Tool: RUBENS-7 Assessment 07617 Review of Systems Const All systems reviewed & are unremarkable except as noted in HPI and below Reports no additional complaints Eyes Reports no additional complaints ENT Reports no additional complaints Card Reports no additional complaints Resp Reports no additional complaints GI Reports no additional complaints Reports no additional complaints Physical exam (Primary Care) Vital Signs: Last Vital Signs Pulse 71 05/01/23 13:41 Resp 18 05/01/23 13:41 BP 110/68 05/01/23 13:41 Pulse Ox 100 05/01/23 13:41 Oxygen Delivery Method Room Air 05/01/23 13:41 Tobacco/Smoking Status: Tobacco use Status Tobacco use date assessed 05/01/23 05/01/23 13:44 Patient Tobacco Use Status Former Tobacco user 05/01/23 13:44 Tobacco use type 08/11/21 15:04 e-Cigarette/Vaping Use Never Used 05/01/23 13:41 PHQ-9: PHQ-9 Score PHQ-9: Total score 3 05/01/23 13:51 Thrive Assessment: Date of Thrive Assessment Date Thrive assessed 04/03/23 05/01/23 13:41 Const General: no acute distress HENMT Ears: hearing grossly normal bilaterally Mouth: Normal oral and palatal mucosa present Neck Neck: Yes supple Resp Auscultation: clear to auscultation bilaterally Cardio Rhythm: regular rhythm Heart sounds: S1 normal heart sound present and S2 normal heart sound present GI Inspection: Yes normal to inspection Palpation (GI): Soft to palpation Percussion: Yes normal to percussion Auscultation: normal bowel sounds Assessment and Plan Assessment & Plan (1) Hypokalemia: Code(s): E87.6 - Hypokalemia Plan: Check BMP today (2) Dementia: Comment: MRI of brain global volume loss, microangiopathy 10/2018 Code(s): F03.90 - Unspecified dementia, unspecified severity, without behavioral disturbance, psychotic disturbance, mood disturbance, and anxiety (3) HTN (hypertension): Comment: BP < 130/80 Code(s): I10 - Essential (primary) hypertension Plan: Continue current medications (4) Prostate cancer: Comment: December 2019 favorable intermediate risk Code(s): C61 - Malignant neoplasm of prostate Plan: Follow-up with urology (5) Urinary incontinence: Code(s): R32 - Unspecified urinary incontinence Plan: Follow-up with urology (6) Anxiety and depression: Code(s): F41.9 - Anxiety disorder, unspecified; F32.A - Depression, unspecified Plan: Start 25 mg of Zoloft for the 1st week then increase to 50 mg a day. Orders: Orders Basic Metabolic Panel Today E87.6 - Hypokalemia Medications: New sertraline 1/2 tabl qd then 1 tabl qd 50 mg PO DAILY 90 tabs 1RF Coding Level of Care Code Est Pt Level 4 (07494) Diagnoses Hypokalemia E87.6 Dementia F03.90 HTN (hypertension) I10 Prostate cancer C61 Urinary incontinence R32 Anxiety and depression F41.9; F32.A Additional Codes RUBENS-7 Assessment Billing - RUBENS-7 Assessment Tool: RUBENS-7 Assessment [id number] ([id number])
[2023-05-01 13:41] VITALS: BP 110/68; PULSE 71; RESP 18; O2SAT 100
== END 2023-05-01 14:46 | disposition home or self-care (01) ==
PROVIDERS: Visit Provider Internal Medicine
DX: I10 Essential (primary) hypertension (principal); F03.90 Unspecified dementia, unspecified severity, without behavioral disturbance, psychotic disturbance, mood disturbance, and anxiety; C61 Malignant neoplasm of prostate; F41.9 Anxiety disorder, unspecified; E87.6 Hypokalemia; R32 Unspecified urinary incontinence; F32.A Depression, unspecified
CPT/HCPCS: 99214

== ENCOUNTER 2023-05-01 14:19 | Outpatient (REF) | payer MEDICARE, MEDICAID, SELFPAY ==
[2023-05-01 17:01] LABS: Anion Gap 13 (12-20); Blood Urea Nitrogen 13 mg/dL (9-16); Calcium 9.5 mg/dL (8.4-10.2); Carbon Dioxide 25 mmol/L (22-29); Chloride 107 mmol/L (96-108); Estimated Glomerular Filt Rate > 60; Glucose Random 88 mg/dL (60-115); Potassium 4.3 mmol/L (3.3-5.1); Sodium 141 mmol/L (135-145)
== END 2023-05-01 14:20 | disposition home or self-care (01) ==
LOC: HO.HMGCLDS 14:19
PROVIDERS: PCP Internal Medicine; Visit Provider Internal Medicine
DX: E87.6 Hypokalemia (principal)
CPT/HCPCS: 36415; 80048

== ENCOUNTER 2023-06-20 11:00 | Outpatient (REF) | payer MEDICARE, MEDICAID, SELFPAY | END 2023-06-20 11:01 | disposition home or self-care (01) | LOC: HO.HMGCLNP 11:00 | PROVIDERS: PCP Internal Medicine; Visit Provider Urology | DX: N39.0 Urinary tract infection, site not specified (principal) | CPT/HCPCS: 87086; 87088; 87186 ==

== ENCOUNTER 2023-09-06 10:38 | Outpatient (AMB) | payer MEDICARE, MEDICAID, SELFPAY ==
--- NOTE | 2023-09-06 10:44 | MHC.PC.OV ---
Vital Signs 09/06/23 11:01 Weight 154 lb BP 120/74 Blood Pressure Location Lt brachial Position Sitting Pulse 68 Pulse Source Pulse Oximeter Pulse Oximetry (%) 98 Oxygen Delivery Method Room Air Intake Visit Reasons: Annual PE Intake Note: Pt is here today for PE. Allergies No Known Allergies [No Known Allergies*] Allergy (Verified 09/06/23 11:01) Medication List - Last Reconciled 09/06/23 by Esthela Carrillo MD atorvastatin 40 mg PO DAILY Depend Underwear For Men SmShane (diaper,brief,adult,disposable) As directed-size sm/med NS doxazosin 4 mg See Protocol PO BEDTIME finasteride 5 mg PO DAILY 90 days methenamine hippurate 1 g PO daily 90 days metoprolol tartrate 50 mg PO BID sertraline 50 mg PO DAILY [Washable bed pad As directed] Tobacco use date assessed: 09/06/23 Fall risk assessment: 2 + Falls in past year Last assessed Fall Risk: 09/06/23 Dental Screening Dental Screen Date: 09/06/23 Did you have a dental visit in the last 12 months?: No Did you have a dental problem in the last 6 months where you did not have access to dental care?: No Was dental information given to patient?: Patient declined HPI Annual PE HPI Details Patient presents for the physical with his son, his main caregiver. Patient has been taking a medication for hyperlipidemia hypertension anxiety depression and follows up with urologist for chronic urinary incontinence since prostatectomy and treatment for prostate CA. According to patient's son patient is getting more confused and forgetful. [facility] Medical History Thrombocytopenia History of CVA (cerebrovascular accident) History of CVA (cerebrovascular accident) Syncope Hypertension Hearing loss Recurrent UTI Annual physical exam Hyperglycemia BPH (benign prostatic hyperplasia) Hyperlipidemia Abnormal computed tomography angiography (CTA) Dementia Lumbar spinal stenosis CVA (cerebral vascular accident) HTN (hypertension) Follicular lymphoma Surgical History No pertinent past surgical history H/O colonoscopy Family History Father Colon cancer HTN (hypertension) Brother Non-Hodgkin lymphoma HTN (hypertension) Sister HTN (hypertension) Mother HTN (hypertension) TIA (transient ischemic attack) Social History Household Members: Unknown / Unable to assess Household Members Other:: He mentioned 2 dogs and a person, but not answering now. Housing: Unknown / Unable to assess Housing Other:: Unsure if this is correct. Are you a primary foster care social worker to a significant other at home: No Unable to assess alcohol history related to: Unable to respond Alcohol intake: never Comment: sitter at bed side Patient Tobacco Use Status: Former Tobacco user Quit Date: over 30 years ago e-Cigarette/Vaping Use: Never Used Advance Directives Date on File: 08/29/22 service: No Current occupational status: retired Cognitive needs: No Hearing needs: Yes Vision needs: No Questionnaire Thrive Questionnaire Date Thrive assessed: 04/03/23 RUBENS-7 AMB Questionnaire RUBENS-7 Date RUBENS - 7 assessed: 05/01/23 Source: Developed by Drs. Jose Manuel Acosta, Perla Kerr, Terence Lorenzana and colleagues, with an educational kamaljit from [employer]. Review of Systems Const All systems reviewed & are unremarkable except as noted in HPI and below Reports no additional complaints Eyes Reports no additional complaints ENT Reports no additional complaints Card Reports no additional complaints Resp Reports no additional complaints GI Reports no additional complaints Reports no additional complaints Physical exam (Primary Care) Vital Signs: Last Vital Signs Pulse 68 09/06/23 11:01 BP 120/74 09/06/23 11:01 Pulse Ox 98 09/06/23 11:01 Oxygen Delivery Method Room Air 09/06/23 11:01 Tobacco/Smoking Status: Tobacco use Status Tobacco use date assessed 09/06/23 09/06/23 11:04 Patient Tobacco Use Status Former Tobacco user 09/06/23 10:44 Tobacco use type 08/11/21 15:04 e-Cigarette/Vaping Use Never Used 09/06/23 10:44 Thrive Assessment: Date of Thrive Assessment Date Thrive assessed 04/03/23 09/06/23 10:44 Const General: no acute distress HENMT Head: Yes normal to inspection General nose exam: Normal external nose present Eyes General: appearance normal, both eyes and all related structures Resp Effort & Inspection: normal respiratory effort Auscultation: clear to auscultation bilaterally Cardio Rhythm: regular rhythm Heart sounds: S1 normal heart sound present and S2 normal heart sound present GI Inspection: Yes normal to inspection Palpation (GI): Soft to palpation Percussion: Yes normal to percussion Auscultation: normal bowel sounds Assessment and Plan Assessment & Plan (1) HTN (hypertension): Comment: BP < 130/80 Code(s): I10 - Essential (primary) hypertension Plan: Continue metoprolol (2) Hyperlipidemia: Code(s): E78.5 - Hyperlipidemia, unspecified Plan: Continue statin (3) Dementia: Comment: MRI of brain global volume loss, microangiopathy 10/2018, slowly declining Code(s): F03.90 - Unspecified dementia, unspecified severity, without behavioral disturbance, psychotic disturbance, mood disturbance, and anxiety (4) Anxiety and depression: Code(s): F41.9 - Anxiety disorder, unspecified; F32.A - Depression, unspecified Plan: cont Zoloft (5) Prostate cancer: Comment: December 2019 favorable intermediate risk, status post prostatectomy, chronic urinary incontinence, f/u with urology Code(s): C61 - Malignant neoplasm of prostate Plan: Follow-up with urology (6) Annual physical exam: Code(s): Z00.00 - Encounter for general adult medical examination without abnormal findings Plan: Well-balanced diet regular physical activity discussed with the patient and his son . According to patient's son, patient has been refusing regular physical activity, physical therapy and VNA services Orders: Orders TSH reflex Free T4 Today E78.5 - Hyperlipidemia, unspecified, F32.A - Depression, unspecified, F41.9 - Anxiety disorder, unspecified, I10 - Essential (primary) hypertension Comprehensive [place]. Panel Fast Today E78.5 - Hyperlipidemia, unspecified, F03.90 - Unspecified dementia, unspecified severity, without behavioral disturbance, psychotic disturbance, mood disturbance, and anxiety, I10 - Essential (primary) hypertension Complete Blood Count Auto Diff Today E78.5 - Hyperlipidemia, unspecified, F32.A - Depression, unspecified, F41.9 - Anxiety disorder, unspecified, I10 - Essential (primary) hypertension Lipid Panel Today E78.5 - Hyperlipidemia, unspecified, F32.A - Depression, unspecified, F41.9 - Anxiety disorder, unspecified, I10 - Essential (primary) hypertension Medications: Changed From sertraline 1/2 tabl qd then 1 tabl qd 50 mg PO DAILY 90 tabs 1RF To sertraline 50 mg PO DAILY 90 tabs 2RF Refilled atorvastatin 40 mg PO DAILY 90 tabs 3RF finasteride Take medication alternating calendar months 5 mg PO DAILY 90 days 90 tabs 1RF N40.1 - Benign prostatic hyperplasia with lower urinary tract symptoms, R33.9 - Retention of urine, unspecified metoprolol tartrate 50 mg PO BID 180 tabs 3RF Discontinued nitrofurantoin monohyd/m-cryst 100 mg (Macrobid) must administer with a meal/food Discontinued Reason: Doctor's Order 100 mg PO BID 14 days 28 caps 0RF Coding Level of Care Code Est Pt Prev Care >65y(88353) Diagnoses HTN (hypertension) I10 Hyperlipidemia E78.5 Dementia F03.90 Anxiety and depression F41.9; F32.A Prostate cancer C61 Annual physical exam Z00.00
[2023-09-06 11:01] VITALS: BP 120/74; PULSE 68; O2SAT 98
== END 2023-09-06 11:40 | disposition home or self-care (01) ==
LOC: HO.HMGC 10:38
PROVIDERS: PCP Internal Medicine; Visit Provider Internal Medicine
DX: Z00.00 Encounter for general adult medical examination without abnormal findings (principal); F03.90 Unspecified dementia, unspecified severity, without behavioral disturbance, psychotic disturbance, mood disturbance, and anxiety; C61 Malignant neoplasm of prostate; I10 Essential (primary) hypertension; E78.5 Hyperlipidemia, unspecified; F41.9 Anxiety disorder, unspecified; F32.A Depression, unspecified
CPT/HCPCS: 99397

== ENCOUNTER 2023-09-29 14:20 | Emergency (ER) | payer MEDICARE, MEDICAID, SELFPAY ==
[2023-09-29] VITALS (9 sets, daily range): BP systolic 140–188; BP diastolic 90–116; PULSE 51–95; RESP 16–18; TEMP 36.6–36.8; O2SAT 96–99; BMI 23.2
--- NOTE | 2023-09-29 14:33 | ED.FALL ---
HPI - Fall General Chief Complaint: Fall Stated Complaint: FELL BACKWARDS LOWER BACK PAIN Source: patient and EMS Mode of arrival: EMS Limitations: no limitations History of Present Illness HPI Narrative: Patient is a 72-year-old male presents emergency department via EMS for evaluation after a fall. Patient had an unwitnessed fall today at home while putting wood into his fireplace. He fell striking his back against the floor and reports feeling a crack. Has 9/10 midline lower back pain. He denies any head strike or loss of consciousness. Denies use of anticoagulants. He also reports a fall at home yesterday as well, this was also unwitnessed, he is unable to tell me details surrounding this fall. He also states he has not taken his medications in the past 2 days, yesterday he states his son for got to remind him, in today he had not gotten around to taking the medication before falling. He denies any precipitating symptoms, dizziness, lightheadedness, headache, neck pain, neck stiffness, chest pain, shortness of breath, recent URI symptoms, nausea, vomiting, abdominal pain, numbness or tingling of the extremities, saddle paresthesias, bladder bowel dysfunction. Related Data Previous Rx's Medication Instructions Recorded Depend Underwear For Men Alexy #64 ea 12/01/21 (diaper,brief,adult,disposable) Washable bed pad #10 ea 12/01/21 methenamine hippurate 1 gram tablet 1 g PO daily 90 days #90 tabs 10/11/22 doxazosin 2 mg tablet 4 mg PO BEDTIME #60 tabs 04/08/23 atorvastatin 40 mg tablet 40 mg PO DAILY #90 tabs 09/06/23 finasteride 5 mg tablet 5 mg PO DAILY 90 days #90 tabs 09/06/23 metoprolol tartrate 50 mg tablet 50 mg PO BID #180 tabs 09/06/23 sertraline 50 mg tablet 50 mg PO DAILY #90 tabs 09/06/23 Allergies Allergy/AdvReac Type Severity Reaction Status Date / Time No Known Allergies Allergy Verified 09/29/23 14:27 [No Known Allergies*] Review of Systems Review of Systems: Yes all other systems are reviewed and are negative PMFSH Past Medical History Attestation statement: The following information was validated with the patient. Source: old records reviewed Onset Date is defined in the Problem List Problems that require an onset date and time if occurred within 24 hrs of arrival to the ED Aortic Dissection and Rupture; Neurologic impairment; Cardiopulmonary Arrest; Endotracheal Intubation; Insertion or Replacement of Mechanical Circulatory Assist Device Medical History Thrombocytopenia History of CVA (cerebrovascular accident) History of CVA (cerebrovascular accident) Syncope Hypertension Hearing loss Recurrent UTI Annual physical exam Hyperglycemia BPH (benign prostatic hyperplasia) Hyperlipidemia Abnormal computed tomography angiography (CTA) Dementia Lumbar spinal stenosis CVA (cerebral vascular accident) HTN (hypertension) Follicular lymphoma Surgical History No pertinent past surgical history H/O colonoscopy Family History Family History Father Colon cancer HTN (hypertension) Brother Non-Hodgkin lymphoma HTN (hypertension) Sister HTN (hypertension) Mother HTN (hypertension) TIA (transient ischemic attack) Social History Social History Household Members: Unknown / Unable to assess Household Members Other:: He mentioned 2 dogs and a person, but not answering now. Housing: Unknown / Unable to assess Housing Other:: Unsure if this is correct. Are you a primary housekeeper caregiver to a significant other at home: No Unable to assess alcohol history related to: Unable to respond Alcohol intake: never Comment: sitter at bed side Patient Tobacco Use Status: Former Tobacco user Quit Date: over 30 years ago Smoked in Last 30 Days: No e-Cigarette/Vaping Use: Never Used Use of substances other than those prescribed or required for medical reasons: No Advance Directives: No Advance Directives Information Provided: No Advance Directives Date on File: 08/29/22 service: No Current occupational status: retired Cognitive needs: No Hearing needs: Yes Vision needs: No Physical Exam Vital Signs: Vital Signs: Last Vital Signs Temp 98.2 F 09/29/23 14:32 Pulse 66 09/29/23 14:32 Resp 16 09/29/23 14:32 BP 188/116 H 09/29/23 14:35 Pulse Ox 97 09/29/23 14:32 O2 Del Method Room Air 09/29/23 14:32 BMI result Body Mass Index 23.2 Appearance: Alert.?Oriented to person, place and time. No acute distress.?Normal affect. Head: Normocephalic Eyes: Pupils equal, round and reactive to light. EOMI. Conjunctiva and sclera normal? No Ureña sign noted. No raccoon eyes noted ENT: No septal hematoma, nares patent bilaterally. External auditory canal normal tympanic membrane pearly mcmullen and intact bilaterally. Dentition normal, no fractured teeth. No lesions or lacerations of oropharynx. Uvula midline. Moist mucous membranes. Neck: Normal inspection.? Neck supple.??No palpable tenderness, step-off, deformities. Back: Midline lumbar spine tenderness, no step-offs or deformities. CVS: Heart sounds normal. Normal heart rate and rhythm.? Pulses normal.?? Respiratory: No respiratory distress.? Lung sounds clear to auscultation bilaterally?? Abdomen: Soft and non-tender. Normoactive bowel sounds. ?? Skin: Skin warm and dry.? Normal skin color.? Extremities: No lower extremity edema.? Neuro: Moves all extremities spontaneously. Sensation intact bilaterally. CN II-XII intact. No focal neuro deficits. Course Reevaluation(s) Reevaluation #1: COVID and influenza testing are negative. CBC is without leukocytosis or anemia, thrombocytopenia with improvement when compared to baseline. Chemistries are pending. Patient received metoprolol 50 mg orally and 5 mg IV due to hypertension. CT pending. Patient signed out to Elle Cordova NP pending results, re-evaluation, and disposition Time: 15:51 Medications Administered Discontinued Medications Generic Name Dose Route Start Last Admin Trade Name Rj PRN Reason Stop Dose Admin Acetaminophen 975 mg 09/29/23 14:38 09/29/23 14:52 Acetaminophen 325 Mg Tablet PO 09/29/23 14:39 975 mg ONCE ONE Administration Ibuprofen 400 mg 09/29/23 14:38 09/29/23 14:52 Ibuprofen 400 Mg Tablet PO 09/29/23 14:39 400 mg ONCE ONE Administration Metoprolol Tartrate 50 mg 09/29/23 14:41 09/29/23 14:51 Metoprolol Tartrate 50 Mg Tablet PO 09/29/23 14:42 50 mg ONCE ONE Administration Protocol Medical Decision Making Medical Decision Making MDM Narrative: Patient is a 72-year-old male with past medical history of BPH, CVA, dementia, follicular lymphoma, hypertension, hyperlipidemia, lumbar spinal stenosis presenting to emergency department for evaluation after 2 recent falls as per HPI in reported mid lower back pain. He denies any head strike or loss of consciousness, however given his history of dementia, and inability to provide specific details regarding yesterday's fall, plan to obtain CT of the head and lumbar spine to exclude ICH/SDH/fracture/subluxation. In addition Will obtain CBC to evaluate for leukocytosis/ anemia, CMP and lipase to evaluate for abnormal electrolytes /abnormal renal function/ abnormal hepatic/biliary function, COVID-19/influenza testing, and Urinalysis. Differential Diagnosis Differential Diagnoses: The differential diagnosis associated with the presentation includes (See narrative above) Admission/Observation Consideration of admission/observation: Escalation of care including admission/observation considered (See narrative above and course narrative for further details) Lab Data MDM Lab Attestation statement: I reviewed the patient's lab results. (See course narrative) 09/29/23 15:02 09/29/23 15:01 Labs: Lab Results 09/29/23 09/29/23 Range/Units 15:01 15:02 WBC 7.5 (4.8-10.8) X10*3/uL RBC 5.87 H (4.60-5.80) X10*6/uL Hgb 17.4 D (14.0-18.0) g/dl Hct 49.4 D (42.0-52.0) % MCV 84.2 (80.0-98.0) fL MCH 29.6 (27.0-33.0) pg MCHC 35.2 (31.0-36.0) g/dl RDW 14.1 (11.0-16.0) % Plt Count 124 L D (160-400) X10*3/uL MPV 9.8 (9.4-12.4) fL Immature Gran % (Auto) 0.7 H (0.0-0.4) % Neut % (Auto) 86.9 H (45-73) % Lymph % (Auto) 7.8 L (20-40) % Roberts % (Auto) 4.0 (2-11) % Eos % (Auto) 0.3 (0-4) % Baso % (Auto) 0.3 (0-2) % Lymph # (Auto) 0.6 L (1.2-4.9) X10*3/uL Roberts # (Auto) 0.3 (0.1-1.2) X10*3/uL Eos # (Auto) 0.0 (0.0-0.4) X10*3/uL Baso # (Auto) 0.0 (0.0-0.2) X10*3/uL Abs Immat Gran (auto) 0.05 H (0.00-0.03) X10*3/uL Absolute Neuts (auto) 6.5 (2.0-8.3) x10*3/uL Absolute Nucleated RBC 0.000 (0.0-0.012) X10*3/uL Nucleated RBC % (auto) 0.0 (0.0-0.2) /100WBC PT 11.4 (11.1-13.3) SEC INR 0.9 (0.9-1.1) Sodium 139 (135-145) mmol/L Potassium 4.1 (3.3-5.1) mmol/L Chloride 107 (96-108) mmol/L Carbon Dioxide 24 (22-29) mmol/L Anion Gap 12 (12-20) BUN 11 (9-16) mg/dL Creatinine 1.08 (0.5-1.4) mg/dL Estim Creat Clear Calc 60.9 Estimated GFR > 60 Random Glucose 85 (60-115) mg/dL Calcium 9.5 (8.4-10.2) mg/dL Total Bilirubin 1.6 H (0.0-1.0) mg/dL AST 28 (5-37) U/L ALT 36 (0-40) U/L Alkaline Phosphatase 104 (39-117) U/L Total Protein 7.6 (6.5-8.0) g/dL Albumin 4.5 (3.5-5.0) g/dL COVID-19 (JAMAL) Negative (Negative) COVID-19 Clin Com See Note Influenza Type A (DANDY) Negative (Negative) Influenza Type B (DANDY) Negative (Negative) Influenza A & B Note See Note Independent Interpretation I performed an independent interpretation of an: CT Scan Radiology Impression Discussion of test interpretation with radiology: I have reviewed the radiologist's reading. Independent Historian Clinical information obtained from an independent historian. History obtained from or confirmed by: EMS External Record Review External record reviewed: Outpatient record Discharge Plan Discharge Clinical Impression: Back pain Patient Disposition: Still a Patient Prescriptions: No Action (DME) Depend Underwear For Men Cosmo- Misc See Rx Instructions .MEDSUPPLY Qty: 64 11RF Rx Instructions: As directed-size sm/med (DME) Washable bed pad Medium See Rx Instructions .Route .MEDSUPPLY Qty: 10 0RF Rx Instructions: As directed doxazosin 2 mg Tablet 4 mg PO BEDTIME Qty: 60 0RF Protocol: Hold for SBP< HOLD for SBP < : 90 sertraline 50 mg tablet 50 mg PO DAILY Qty: 90 2RF atorvastatin 40 mg tablet 40 mg PO DAILY Qty: 90 3RF finasteride 5 mg tablet 5 mg PO DAILY 90 Days Qty: 90 1RF Rx Instructions: Take medication alternating calendar months metoprolol tartrate 50 mg tablet 50 mg PO BID Qty: 180 3RF methenamine hippurate 1 gram tablet 1 g PO daily 90 Days Qty: 90 1RF
--- NOTE | 2023-09-29 15:07 | PC.NURSE ---
pt alert and oriented to self, place, and situation but unaware on what year it is. pt seems to be pleasantly confused. hx of dementia baseline. vss and up to date aside from being hypertensive. pt states noncompliant w/ home meds x 2 days. d/t forgetting. presents to the ED d/t unwitnessed fall at home. pt was putting wood in wood stove and fell backwards landing flat on back. head a crack. pt c/o 9/10 back pain. denies any other sx. ED provider assessed pt. medication administered per provider order. labs obtained/sent to lab. pt incontinent of urine. pt cleaned/fresh linen applied. [place] catheter placed at this time. no sob/wob noted. respiration even and unlabored. call zhang placed within reach.
[2023-09-29 15:13] LABS: MANUAL DIFF FLAG NO
--- NOTE | 2023-09-29 15:21 | PC.NURSE ---
pt to CT at this time.
[2023-09-29 15:22] LABS: Basophils Percent Auto 0.3 % (0-2); Eosinophils Percent Auto 0.3 % (0-4); Hematocrit 49.4 % (42.0-52.0); Hemoglobin 17.4 g/dl (14.0-18.0); Imm Gran Abs Auto 0.05 X10*3/uL (0.00-0.03); Imm Gran Pct Auto 0.7 % (0.0-0.4); Lymphocytes Absolute Auto 0.6 X10*3/uL (1.2-4.9); Lymphocytes Percent Auto 7.8 % (20-40); Mean Corpuscular HGB Conc 35.2 g/dl (31.0-36.0); Mean Corpuscular Hemoglobin 29.6 pg (27.0-33.0); Mean Corpuscular Volume 84.2 fL (80.0-98.0); Mean Platelet Volume 9.8 fL (9.4-12.4); Monocytes Absolute Auto 0.3 X10*3/uL (0.1-1.2); Neutrophils Absolute Auto 6.5 x10*3/uL (2.0-8.3); Neutrophils Percent Auto 86.9 % (45-73); Platelet Count 124 X10*3/uL (160-400); Red Blood Count 5.87 X10*6/uL (4.60-5.80); Red Cell Distribution Width 14.1 % (11.0-16.0); White Blood Count 7.5 X10*3/uL (4.8-10.8)
[2023-09-29 15:48] LABS: Alanine Aminotransferase 36 U/L (0-40); Albumin Level 4.5 g/dL (3.5-5.0); Alkaline Phosphatase 104 U/L (39-117); Anion Gap 12 (12-20); Aspartate Amino Transferase 28 U/L (5-37); Bilirubin Total 1.6 mg/dL (0.0-1.0); Blood Urea Nitrogen 11 mg/dL (9-16); Calcium 9.5 mg/dL (8.4-10.2); Carbon Dioxide 24 mmol/L (22-29); Chloride 107 mmol/L (96-108); Creatinine Clr Calc Pharmacy 60.9; Estimated Glomerular Filt Rate > 60; Glucose Random 85 mg/dL (60-115); Potassium 4.1 mmol/L (3.3-5.1); Sodium 139 mmol/L (135-145); Total Protein 7.6 g/dL (6.5-8.0)
--- NOTE | 2023-09-29 16:13 | PC.NURSE ---
medication administered per provider order. will reassess BP.
--- NOTE | 2023-09-29 16:46 | PC.NURSE ---
BP slowly decreasing post medication administration. BP cycling q30min at this time so reassessments can be made. rest of pt's vitals remain stable at this time. normal sinus/slightly sinus al on the cardiac sonographer. pt waiting for CT results. call zhang placed within reach.
--- NOTE | 2023-09-29 17:30 | PC.NURSE ---
pt becoming hypertensive again despite medication administration - will notify provider. urine obtained/sent to lab. food tray ordered from kitchen. pt still verbalizing 8/10 back pain at this time. no sob/wob noted. respirations even and unlabored. call zhang placed.
[2023-09-29 17:41] LABS: Appearance Urine Cloudy; Color Urine Yellow; Glucose Urine UA Negative (Negative); Leukocyte Esterase Urine Large (3+) (Negative); Nitrite Urine Negative (Negative); Specific Gravity - Urine 1.015 (1.005-1.025); UMIC TRIGGER UACC YES; Urine Blood Trace (Negative); Urine Ketones Negative (Negative); Urine Protein 30 (1+) mg/dL (Neg-Trace)
[2023-09-29 17:43] LABS: Bacteria Urine 4+ (None Seen); Hyaline Casts Urine 0-2 /LPF (0-2); RBC Urine 0-2 /HPF (0-2); Squamous Epithelial Cell Urine 0-2 /HPF (0-2); UACC Culture Trigger YES; WBC Urine >50 /HPF (0-5)
--- NOTE | 2023-09-29 18:14 | PC.NURSE ---
medication administered per provider order. admitting provider bedside assessing pt at this time. will reassess BP.
--- NOTE | 2023-09-29 18:48 | PC.NURSE ---
pt remains hypertensive despite hydralazine administration. provider notified/aware at this time. abx administered per provider order. pt resting comfortably - denies headache/lightheadedness/blurred vision. pt still verbalizing 8/10 back pain at this time. pt resting comfortably eating dinner tray. call zhang placed within reach.
--- NOTE | 2023-09-29 19:30 | PC.NURSE ---
report received and care assumed. RN to bedside per request of registration as the pt had outreached for assistance. Upon arrival to the room, the pt was noted to seated at the foot of the bed, attempting to use the phone to make a call; RN assisted per his request. Pt reports that he is ready to go, has been told that he is going to be sent home. He said he already removed his [place] catheter, all monitor cables have been removed and he is fully dressed, requesting IV line be removed. The RN spoke with the pt's son Mike who reports he is paid to provide foster services/care to be his primary caregiver adding that the pt resides in the home with the son mike and a friend and that the pt is never alone in the home. RN attempted to make him aware of plan for CM involvement for home services to better assist with medication compliance but the son refused/declined stating we've been down that road, I manage all his meds). ELEVATOR SERVICE TECHNICIAN aware and will consult MD Hernandez for next steps and disposition. RN will continue to monitor the pt and rn relief charge aware that the pt may require a room closer to the nursing station for continued monitoring for safety.
[2023-09-30 00:02] VITALS: BP 163/84; PULSE 87; RESP 20; TEMP 36.8; O2SAT 96
[2023-09-30 01:03] VITALS: PULSE 50; RESP 10
[2023-09-30 05:06] VITALS: BP 165/101; PULSE 52; RESP 22; TEMP 36.6; O2SAT 98
--- NOTE | 2023-09-30 07:24 | PC.NURSE ---
Resumed care of patient, he is currently resting comfortably, awaiting PT/CM at this time.
[2023-09-30 07:46] VITALS: BP 177/106; PULSE 69; RESP 16; O2SAT 98
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
[2023-09-30 12:24] VITALS: BP 141/104; PULSE 86; RESP 19; TEMP 36.6; O2SAT 99
--- NOTE | 2023-09-30 15:27 | MHC.CM.ED ---
Addendum entered by Rhina De Guzman 09/30/23 15:44: Lola from [facility] [employer] was on-site to see patient. Information provided to Lola from [facility]. Lola can be reached via telephone at [phone] ext [phone]. Original Note: Received case management consult overnight. Patient came to the ER due to a fall. Work up essentially negative. Physical therapy eval pending. Attempted to meet with patient in regards to discharge planning. Patient has advanced dementia. Spoke with patient's son, Kamar, via telephone at [phone]. Patient lives with Kamar and his other daughter, Erendira. Patient is supposed to ambulate with a cane but forgets. Patient was previously active with [facility], [facility], [facility] and [facility]. [facility] would be Kamar's first choice. Referral made to [facility]. [facility] is not able to accept patient. Kamar does not want a referral to [facility]. Referral made to [facility]. [facility] is not able to accept patient. Referral made to [facility]. [facility] is able to accept patient. Kamar agreeable. Kamar will be at ER around 330 to transport patient home. Patient, Kamar, Verónica RN and Cathleen STAFFORD aware. Continue to monitor for d/c needs.
== END 2023-09-30 16:00 | disposition home or self-care (01) ==
PROVIDERS: Nurse Practitioner Family; Emergency Provider Emergency Medicine; PCP Internal Medicine
DX: M54.50 Low back pain, unspecified (principal); I10 Essential (primary) hypertension; E78.5 Hyperlipidemia, unspecified; N40.0 Benign prostatic hyperplasia without lower urinary tract symptoms; F03.90 Unspecified dementia, unspecified severity, without behavioral disturbance, psychotic disturbance, mood disturbance, and anxiety; Z91.81 History of falling; Z11.52 Encounter for screening for COVID-19; Z79.899 Other long term (current) drug therapy; Z86.73 Personal history of transient ischemic attack (TIA), and cerebral infarction without residual deficits
CPT/HCPCS: 70450; 72131; 80053; 81001; 85025; 85610; 87086; 87088; 87186; 87502; 87635; 96374; 96375; 99284; 99285; J0360

== ENCOUNTER 2023-10-11 14:37 | Outpatient (AMB) | payer MEDICARE, MEDICAID, SELFPAY ==
--- NOTE | 2023-10-11 14:48 | A.OFFVIS_ITS ---
Intake Intake Visit Reasons: Recurrent UTI/Prostate cx- follow up Intake Note: Patient is present for follow up recurrent uti and prostate cancer Urology Med: Finasteride, ,methenamine Blood Thinner: None Allergies: NKDA Table Tender Sludge Required: No Accompanied by: Unknown Allergies No Known Allergies [No Known Allergies*] Allergy (Verified 10/11/23 16:43) Medication List - Last Reconciled 10/11/23 by BAO Lozano-BC acetaminophen (Tylenol) 325 mg PO Q4H PRN ascorbic acid (vitamin C) 1 g PO DAILY 90 days atorvastatin 40 mg PO DAILY Depend Underwear For Men Sm-Md (diaper,brief,adult,disposable) As directed-size sm/med NS finasteride 5 mg PO DAILY 90 days lidocaine 5% 1 patch topical DAILY PRN methenamine hippurate 1 g PO daily 90 days metoprolol tartrate 50 mg PO BID sertraline 50 mg PO DAILY [Washable bed pad As directed] HPI HPI Comments History of Present Illness Details Kamar is a pleasant 72 year old male patient of Dr. Carrillo was accompanied by his [id number] at today's office visit. He has a past medical history of thrombocytopenia, CVA, hypertension, hearing loss, recurrent urinary tract infections, hyperlipidemia, dementia, lumbar spinal stenosis, CVA, hypertension, follicular lymphoma and prostate cancer. He presents to the office today for a follow up of his prostate cancer, prostatitis in the setting of immunocomprised, nocturia with incontinence, and recurrent urinary tract infections.. In discussion with the patient today he reports to be doing and feeling well however his son who is on the phone for todays office visit states he feels otherwise. He reports patient is extremely non complaint with self care, ADL's, and overall health and being. He was last seen by urology while hospitalized at [facility] by Dr. Saldana March 2023 at which time recommendations were made for Urology follow-up once discharged. However, patient reports he was not aware of this. He reports needing refill on methenamine at which time refill was denied given no recent follow-up. Therefore, patient is following up today. In discussion with the patient today he reports no urological issues or concerns. However patients son feels otherwise. He reports patient to be incontinent mostly at night however in discussion with the patient today he reports he is incontinent as he does not want to get up to urinate. In review of patient's chart it appears PSAs are as follows: 04/12--5.0 04/14--42.0 Discussed extremely elevated PSA in the setting of prostate cancer. Discussed potential causes of elevated PSA. Discussed redraw of PSA and obtaining bone scan for further assessment evaluation. Discussed markedly elevated PSA during time of patient having urosepsis with same organism in blood and in urine (Ecoli). IN REVIEW OF PATIENTS CHART: Background of immunosuppression from prior follicular lymphoma and chemotherapy 2014 Known prostate cancer diagnosed intermediate risk 2019 PSA 9.6 Diagnostic biopsy complicated by persistent, recurrent prostatitis Known poor bladder function Has had recurrent urinary tract infection in setting of prior immunocompromise Initiate vitamin-C with within methenamine Persistent nocturia with accidents in setting of early dementia Prostate cancer: favorable intermediate December 2019 - initial therapy active surveillance Post biopsy developed persistent prostatitis with ongoing infection that required IV antibiotics Current PSA 13. Review in 4 months. Prostate cancer was diagnosed Dr. Saldana December 2019. Diagnosis was reached by December 2019 , needle biopsy, for elevated PSA, PSA at diagnosis 8. The Alanson grade is December 2019 , left mid gland - , 3+3 = 6 10% , right mid gland, 3+4 = 7 40%. TNM Classification of Malignant Tumours (TNM) T1c. The D'Rajiv (NCCN) risk category is Intermediate Risk (PSA 10-20, Gl 7, T2) - Group 2. Initial therapy included Primary treatment, Deferred Therapy (active surveillance). Recent labs included - 06/12 PSA 13, 11/13 10, 04/12 4.9, 08/13 5.1 31%, 03/14 4.8 [facility] Medical History Thrombocytopenia History of CVA (cerebrovascular accident) History of CVA (cerebrovascular accident) Syncope Hypertension Hearing loss Recurrent UTI Annual physical exam Hyperglycemia BPH (benign prostatic hyperplasia) Hyperlipidemia Abnormal computed tomography angiography (CTA) Dementia Lumbar spinal stenosis CVA (cerebral vascular accident) HTN (hypertension) Follicular lymphoma Surgical History No pertinent past surgical history H/O colonoscopy Family History Father Colon cancer HTN (hypertension) Brother Non-Hodgkin lymphoma HTN (hypertension) Sister HTN (hypertension) Mother HTN (hypertension) TIA (transient ischemic attack) Social History Household Members: Unknown / Unable to assess Household Members Other:: He mentioned 2 dogs and a person, but not answering now. Housing: Unknown / Unable to assess Housing Other:: Unsure if this is correct. Are you a primary health care marketing specialist to a significant other at home: No Unable to assess alcohol history related to: Unable to respond Alcohol intake: never Comment: sitter at bed side Patient Tobacco Use Status: Former Tobacco user Quit Date: over 30 years ago e-Cigarette/Vaping Use: Never Used Advance Directives Date on File: 08/29/22 service: No Current occupational status: retired Cognitive needs: No Hearing needs: Yes Vision needs: No Review of Systems Const Reports as per HPI Eyes Reports no additional complaints ENT Reports no additional complaints Card Reports as per HPI Resp Reports no additional complaints GI Reports no additional complaints Reports as per HPI Musc Reports as per HPI Neuro Reports as per HPI Psych Reports no additional complaints Endo Reports as per HPI Tone/Lymph Reports as per HPI Aller/Immun Reports as per HPI Physical Exam Const General: cooperative, comfortable, no acute distress, well developed, alert and awake Nutritional Appearance: cachectic Orientation/consciousness: oriented to person Limitations: ambulation with walker and wheelchair HEENT Head: Yes normal to inspection, Yes normocephalic and Yes atraumatic Ears: hearing grossly normal bilaterally Eyes General: appearance normal, both eyes and all related structures Neck Neck: Yes normal visual inspection and Yes trachea midline Chest Chest palpation & inspection: normal inspection of the chest Resp Effort & Inspection: normal respiratory effort and able to speak in complete sentences Cardio Rate: regular rate GI Inspection: Yes normal to inspection General: Yes no CVA tenderness Back/Spine/Pelvis Back: no CVA tenderness Skin General skin exam: no rashes or lesions noted Neuro General: oriented to person Extrem General: Yes normal to inspection Psych Appearance: grossly normal Speech and movement: Normal speech and movement present and Clear speech present Affect: normal affect Attitude: cooperative Insight: Fair insight present (Psych) Judgement: Fair judgement present (Psych) Office Procedures Post Void Residual Post Residual Void Post Void Residual (PVR): 0 [id number]-Ycys Void Residual by ultrasound Assessment & Plan Assessment & Plan (1) Elevated PSA, greater than or equal to 20 ng/ml: Code(s): R97.20 - Elevated prostate specific antigen [PSA] (2) Urinary incontinence: Code(s): R32 - Unspecified urinary incontinence (3) Prostate cancer: Comment: December 2019 favorable intermediate risk, status post prostatectomy, chronic urinary incontinence, f/u with urology Code(s): C61 - Malignant neoplasm of prostate (4) Recurrent UTI: Code(s): N39.0 - Urinary tract infection, site not specified (5) Incontinence of urine: Code(s): R32 - Unspecified urinary incontinence Plan Unable to obtain urine for urinalysis however PVR 0 mL. Patient currently denies any bothersome urinary issues or concerns. Discussed at length importance of scheduled toileting and utilizing bathroom instead of being incontinent Will obtain redraw of PSA. Will obtain bone scan for further assessment evaluation. Discussed at length potential causes for elevated PSA Discussed, educated, and stressed the importance of drinking plenty of water daily. Continue methenamine, vitamin-C, and finasteride as discussed and prescribed. Follow-up in 1-2 months with imaging and lab to be completed prior; or sooner with any issues, concerns, and or questions. Orders: Orders AMB Post Void Residual by ultrasound 10/11/23 N39.0 - Urinary tract infection, site not specified PSA,Total (Free>4and<10) 10/11/23 C61 - Malignant neoplasm of prostate, N39.0 - Urinary tract infection, site not specified, R97.20 - Elevated prostate specific antigen [PSA] NM bone scan whole body 10/11/23 C61 - Malignant neoplasm of prostate, C79.51 - Secondary malignant neoplasm of bone Urine Culture 10/11/23 N39.0 - Urinary tract infection, site not specified Medications: New ascorbic acid (vitamin C) 1 g PO DAILY 90 tabs 1RF 90 days N39.0 - Urinary tract infection, site not specified ascorbic acid (vitamin C) 1 g PO DAILY 90 days 90 tabs 1RF N39.0 - Urinary tract infection, site not specified Refilled finasteride Take medication alternating calendar months 5 mg PO DAILY 90 days 90 tabs 1RF N40.1 - Benign prostatic hyperplasia with lower urinary tract symptoms, R33.9 - Retention of urine, unspecified methenamine hippurate 1 g PO daily 90 days 90 tabs 1RF R32 - Unspecified urinary incontinence Patient Instructions: The patient had an opportunity to ask questions regarding the treatment plan. All questions were answered. Physical exam, labs, and imaging were discussed and reviewed in detail. As well as risks, benefits, and discussion of treatment choices. No major barriers to understanding were identified. The patient expressed understanding and agreement with the above treatment plan. The patient was made aware they should contact our office by phone for worsening of their current condition, the appearance of new symptoms, or with any questions or concerns. Compliance is encouraged with any medications and follow up testing that is ordered. It is a privilege to be allowed the opportunity to participate in? your urological care.? Again, if you have any questions or concerns If you have any questions or concerns please do not hesitate to contact me. The office is [phone]. This note is constructed using voice recognition software. While every effort has been made to ensure accuracy personal finance instructor errors may have been included. Yours sincerely, ASH Lozano Coding Level of Care Code Est Pt Level 4 (87003) Diagnoses Elevated PSA, greater than or equal to 20 ng/ml R97.20 Urinary incontinence R32 Prostate cancer C61 Recurrent UTI N39.0 CPT Codes Post Residual Void - PVR CPT Code: 00835-Eesl Void Residual by ultrasound ([id number]) Time Spent (min) 40
== END 2023-10-11 15:53 | disposition home or self-care (01) ==
LOC: HO.HUSH 14:37
PROVIDERS: PCP Internal Medicine; Visit Provider Nurse Practitioner Family
DX: R97.20 Elevated prostate specific antigen [PSA] (principal); R32 Unspecified urinary incontinence; C61 Malignant neoplasm of prostate; N39.0 Urinary tract infection, site not specified
CPT/HCPCS: 99214

== ENCOUNTER → 2023-10-11 14:37 | Outpatient (BNVA) | payer MEDICARE, MEDICAID, SELFPAY | PROVIDERS: PCP Internal Medicine; Visit Provider Nurse Practitioner Family | DX: R97.20 Elevated prostate specific antigen [PSA] (principal); R32 Unspecified urinary incontinence; C61 Malignant neoplasm of prostate; N39.0 Urinary tract infection, site not specified | CPT/HCPCS: 51798; 99212 ==

== ENCOUNTER 2023-11-26 12:20 | Outpatient (REF) | payer MEDICARE, MEDICAID, SELFPAY | END 2023-11-26 12:21 | disposition home or self-care (01) | LOC: HO.HMGCLNP 12:20 | PROVIDERS: PCP Internal Medicine; Visit Provider Nurse Practitioner Family | DX: N39.0 Urinary tract infection, site not specified (principal) | CPT/HCPCS: 87086; 87088; 87186 ==

== ENCOUNTER 2023-12-10 11:46 | Emergency (ER) | payer MEDICARE, MEDICAID, SELFPAY ==
--- NOTE | 2023-12-10 12:03 | ECG_ITS ---
Test Reason : AMS Blood Pressure : / mmHG Vent. Rate : 046 BPM Atrial Rate : 046 BPM P-R Int : 182 ms QRS Dur : 072 ms QT Int : 488 ms P-R-T Axes : 043 -04 017 degrees QTc Int : 427 ms Sinus bradycardia Otherwise normal ECG When compared with ECG of 02-APR-2023 22:58, Vent. rate has decreased BY [address] no longer depressed in Anterior leads Referred By: Alycia Teague Electronically Signed By:DOUG MARIEE
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
[2023-12-10 12:05] VITALS: BP 118/80; BP 170/97; PULSE 46; PULSE 48; RESP 16; TEMP 36.5; O2SAT 98; O2SAT 99; BMI 22.4
[2023-12-10 13:04] VITALS: PULSE 48; O2SAT 99
--- NOTE | 2023-12-10 13:57 | PC.NURSE ---
pt a&o x4, pleasantly confused, hx of dementia. pleasant, calm, and cooperative. pt on regular diet, given lunch tray, currently eating. PT eval complete. recommendation for STR. pt currently resting quietly on stretcher in no apparent distress. rr even/unlabored. plan of care ongoing.
--- NOTE | 2023-12-10 14:22 | MHC.CM.ED ---
Received case management consult from Dr Teague. Patient typically lives at home with his son. His son has been in [facility] for 5 days. Physical therapy eval completed. Short term rehab is recommended. Patient has a history of advanced dementia. Spoke with patient's daughter, Martha via telephone at [phone]. Patient has been to [facility] in the past and did well there. [facility] is able to offer a bed. [facility] PASRR Level 1 and MDS completed. MDS faxed to [facility] and sent to [facility]. Waiting for approval before patient can transfer to [facility]. Continue to monitor for d/c needs.
[2023-12-10 14:49] LABS: COVID-19 Test Negative (Negative); IDNOW Serial# 152EDE1D
--- NOTE | 2023-12-10 15:37 | MHC.CM.ED ---
Addendum entered by Cathryn Thayer 12/10/23 16:44: [facility] can take patient tonight. Pt aware. BLS task and tiger text to Jaspreet Head) to book transport. Transport booked for 5pm. [facility] and face sheet to community relations police lieutenant. Worksheet to primary RN. Son, Alfie aware. Original Note: Pt is requesting to go home.`Pt has dementia. When CM explained that PT is requesting that he go to rehab, but is agreeable. Requesting that CM call his son. CM called son and caregiver, Kamar ([phone]). He has just returned home from hospitalization at [facility]. Kamar states he would like his father to go rehab. Kamar also states that he had family and friends caring for his father while he was hospitalized, and that his father was alone for about 10 minutes before the visiting nurse came to the house. State His aunt was on route to his home to care for his father. Kamar states he is the HCP/POA and his sister, Martha, has no right to make suggestions regarding his father's care, as she does not care for him now. Kamar and his father are aware that CM is waiting for MDS approval letter. CM following.
[2023-12-10 17:54] VITALS: BP 163/94; PULSE 65; RESP 15; TEMP 36.7; O2SAT 97
[2023-12-10 18:20] VITALS: BP 163/94; PULSE 65; RESP 16; TEMP 36.7; O2SAT 97
--- NOTE | 2023-12-10 18:20 | PC.NURSE ---
attempted to call [facility] to give nurse to nurse report. no answer. pt en route to [facility].
== END 2023-12-10 18:24 | disposition home or self-care (01) ==
PROVIDERS: Emergency Provider Emergency Medicine
DX: R41.82 Altered mental status, unspecified (principal); R50.9 Fever, unspecified; R00.1 Bradycardia, unspecified; R26.2 Difficulty in walking, not elsewhere classified; Z87.891 Personal history of nicotine dependence; Z79.899 Other long term (current) drug therapy; Z11.52 Encounter for screening for COVID-19
CPT/HCPCS: 87635; 93005; 97162; 99284

== ENCOUNTER → 2023-12-10 12:03 | Outpatient (BNV) | payer MEDICARE, MEDICAID, SELFPAY | PROVIDERS: Emergency Provider Emergency Medicine; Visit Provider Internal Medicine | DX: R00.1 Bradycardia, unspecified (principal) | CPT/HCPCS: 93010 ==

== ENCOUNTER 2024-02-10 14:08 | Outpatient (AMB) | payer MEDICARE, MEDICAID, SELFPAY ==
--- NOTE | 2024-02-10 14:08 | MHC.PC.OV ---
Vital Signs 02/10/24 14:20 Height 5 ft 9 in Weight 148 lb BMI 21.9 BP 134/80 Blood Pressure Location Rt brachial Position Sitting Pulse 51 Pulse Source Pulse Oximeter Pulse Oximetry (%) 97 Oxygen Delivery Method Room Air Intake Visit Reasons: Face to Face review for home care services Intake Note: Pt is here today for his face to face review for home care services Allergies No Known Allergies [No Known Allergies*] Allergy (Verified 02/10/24 14:27) Medication List - Last Reconciled 02/10/24 by Esthela Carrillo MD atorvastatin 40 mg PO DAILY Depend Underwear For Men Alexy (diaper,brief,adult,disposable) As directed-size sm/med NS finasteride 5 mg PO DAILY 90 days methenamine hippurate 1 g PO daily 90 days metoprolol tartrate 50 mg PO BID sertraline 50 mg PO DAILY [Washable bed pad As directed] Tobacco use date assessed: 02/10/24 Fall risk assessment: 2 + Falls in past year Last assessed Fall Risk: 02/10/24 Dental Screening Dental Screen Date: 02/10/24 Did you have a dental visit in the last 12 months?: No Was dental information given to patient?: Patient has dentist HPI Face to Face review for home care services HPI Details Pt presents for f/u. pt has been geting home PT twice a week for poor balance and lower extremities weakness and needs to continue. Hyperlipidemia hypertension chronic anxiety are stable on current medications. Patient follows up with urology for prostate CA but refuses treatment. [facility] Medical History (Updated 02/10/24 @ 14:55 by Esthela Carrillo MD) Thrombocytopenia History of CVA (cerebrovascular accident) History of CVA (cerebrovascular accident) Syncope Hypertension Hearing loss Recurrent UTI Annual physical exam Hyperglycemia BPH (benign prostatic hyperplasia) Hyperlipidemia Abnormal computed tomography angiography (CTA) Dementia Lumbar spinal stenosis CVA (cerebral vascular accident) HTN (hypertension) Follicular lymphoma Surgical History No pertinent past surgical history H/O colonoscopy Family History (Updated 02/10/24 @ 14:29 by Sofy Larios CMA) Father Colon cancer HTN (hypertension) Brother Non-Hodgkin lymphoma HTN (hypertension) Sister HTN (hypertension) Mother HTN (hypertension) TIA (transient ischemic attack) Social History (Updated 12/10/23 @ 13:40 by Alycia Teague MD) Household Members: Unknown / Unable to assess Household Members Other:: He mentioned 2 dogs and a person, but not answering now. Housing: Unknown / Unable to assess Housing Other:: Unsure if this is correct. Are you a primary manager long term care to a significant other at home: No Unable to assess alcohol history related to: Unable to respond Alcohol intake: never Patient Tobacco Use Status: Former Tobacco user Quit Date: over 30 years ago e-Cigarette/Vaping Use: Never Used Advance Directives Date on File: 08/29/22 service: No Current occupational status: retired Cognitive needs: No Hearing needs: Yes Vision needs: No Questionnaire PHQ-9 Over the last 2 weeks, how often have you been bothered by any of the following problems? 1. Little interest or pleasure in doing things: not at all 2. Feeling down, depressed, or hopeless: not at all 3. Trouble falling or staying asleep, or sleeping too much: not at all 4. Feeling tired or having little energy: not at all 5. Poor appetite or overeating: not at all 6. Feeling bad about yourself - or that you are a failure or have let yourself or your family down: not at all 7. Trouble concentrating on things, such as reading the newspaper or watching television: not at all 8. Moving or speaking so slowly that other people could have noticed. Or the opposite - being so fidgety or restless that you have been moving around a lot more than usual: not at all 9. Thoughts that you would be better off or of hurting yourself in some way: not at all Total score: 0 Depression Screening Interpretation: Negative Depression Screening Done: Yes 66313 - PHQ-9 Billing: Yes Source: Developed by Drs. Jose Manuel Acosta, Perla Kerr, Terence Lorenzana and colleagues, with an educational kamaljit from [employer] Thrive Questionnaire Date Thrive assessed: 02/10/24 I am a: Patient What is your living situation today?: I have a steady place to live Within the past 12 months, did the food you bought not last and you didn't have the money to get more?: Never true Within the past 12 months, did you worry whether your food would run out before you got money to buy more?: Never true Do you have trouble paying for medicines?: No Do you have trouble getting transportation to medical appointments?: No Do you have trouble paying your heating and electricity bill?: No Do you have trouble taking care of your child, family member or friend?: No Do you have trouble with day-to-day activities such as bathing, preparing meals, shopping, managing finances, etc.?: No Are you currently unemployed and looking for a job?: No Are you interested in more education?: No THRIVE Score: 0 AUDIT C Alcohol Use Questionnaire (AUDIT-C) 1. How often do you have a drink containing alcohol?: Never Total Score: 0 RUBENS-7 AMB Questionnaire RUBENS-7 Date RUBENS - 7 assessed: 02/10/24 Feeling nervous, anxious, or on edge: 0 = Not at all Not being able to stop or control worryin = Not at all Worrying too much about different things: 0 = Not at all Trouble relaxin = Not at all Being so restless that it is hard to sit still: 0 = Not at all Becoming easily annoyed or irritable: 0 = Not at all Feeling afraid as if something awful might happen: 0 = Not at all Total RUBENS-7 score (0-4 normal; 5-9 mild; 10-14 moderate; 15-21 severe): 0 Source: Developed by Drs. Jose Manuel Acosta, Perla Kerr, Terence Lorenzana and colleagues, with an educational kamaljit from [employer] Review of Systems Const All systems reviewed & are unremarkable except as noted in HPI and below Eyes Reports no additional complaints ENT Reports no additional complaints Card Reports no additional complaints Resp Reports no additional complaints GI Reports no additional complaints Reports no additional complaints Physical exam (Primary Care) Vital Signs: Last Vital Signs Pulse 51 02/10/24 14:20 BP 134/80 02/10/24 14:20 Pulse Ox 97 02/10/24 14:20 Oxygen Delivery Method Room Air 02/10/24 14:20 BMI result Body Mass Index 21.9 Tobacco/Smoking Status: Tobacco use Status Tobacco use date assessed 02/10/24 02/10/24 14:32 Patient Tobacco Use Status Former Tobacco user 02/10/24 14:08 Tobacco use type 11/19/21 15:04 e-Cigarette/Vaping Use Never Used 02/10/24 14:08 PHQ-9: PHQ-9 Score PHQ-9: Total score 0 02/10/24 14:32 Depression Screening Interpretation: Negative Thrive Assessment: Date of Thrive Assessment Date Thrive assessed 02/10/24 02/10/24 14:32 Const General: no acute distress HENMT Head: Yes normal to inspection Throat: Yes posterior oropharynx normal Neck Neck: Yes supple Resp Effort & Inspection: normal respiratory effort Auscultation: clear to auscultation bilaterally Cardio Rhythm: regular rhythm Heart sounds: S1 normal heart sound present and S2 normal heart sound present GI Inspection: Yes normal to inspection Palpation (GI): Soft to palpation Percussion: Yes normal to percussion Auscultation: normal bowel sounds Assessment and Plan Assessment & Plan (1) Poor balance: Code(s): R26.89 - Other abnormalities of gait and mobility Plan: Continue home physical therapy (2) HTN (hypertension): Comment: BP < 130/80 Code(s): I10 - Essential (primary) hypertension Plan: Continue metoprolol (3) Hyperlipidemia: Code(s): E78.5 - Hyperlipidemia, unspecified Plan: Continue statin (4) Dementia: Comment: MRI of brain global volume loss, microangiopathy 10/2018, slowly declining Code(s): F03.90 - Unspecified dementia, unspecified severity, without behavioral disturbance, psychotic disturbance, mood disturbance, and anxiety Plan: Continue supportive care (5) Multiple falls: Code(s): R29.6 - Repeated falls Plan: Continue home physical therapy (6) Prostate cancer: Comment: December 2019 favorable intermediate risk, status post prostatectomy, chronic urinary incontinence, f/u with urology Code(s): C61 - Malignant neoplasm of prostate Plan: Follow-up with urology Coding Level of Care Code Est Pt Level 4 (94682) Diagnoses Poor balance R26.89 HTN (hypertension) I10 Hyperlipidemia E78.5 Dementia F03.90 Multiple falls R29.6 Prostate cancer C61
[2024-02-10 14:20] VITALS: BP 134/80; PULSE 51; O2SAT 97; BMI 21.9
== END 2024-02-10 14:57 | disposition home or self-care (01) ==
LOC: HO.HMGC 14:08
PROVIDERS: Visit Provider Internal Medicine
DX: R26.89 Other abnormalities of gait and mobility (principal); F03.90 Unspecified dementia, unspecified severity, without behavioral disturbance, psychotic disturbance, mood disturbance, and anxiety; C61 Malignant neoplasm of prostate; I10 Essential (primary) hypertension; E78.5 Hyperlipidemia, unspecified; R29.6 Repeated falls
CPT/HCPCS: 99214

== ENCOUNTER 2024-03-28 14:06 | Emergency (ER) | payer MEDICARE, MEDICAID, SELFPAY ==
--- NOTE | ~2024-03-28 | XR_ITS ---
EXAMINATION: XR ELBOW, LEFT CLINICAL INFORMATION: Pain, trauma COMPARISON: None available. TECHNIQUE: AP, lateral, and oblique views of the left elbow. FINDINGS: No acute fracture or dislocation. Joint spaces are maintained. Soft tissue swelling along the dorsal aspect of the elbow. No joint effusion. XR/XR elbow LT min 3V IMPRESSION: 1. No acute fracture or dislocation. 2. Soft tissue swelling along the dorsal aspect of the elbow.
--- NOTE | ~2024-03-28 | CT_ITS ---
EXAMINATION: CT ANGIOGRAM HEAD CT ANGIOGRAM NECK CLINICAL INFORMATION: Reason for Exam left sided deficit, AMS COMPARISON: Same-day CT head, CT angiogram of the head and neck 02/15/2023 TECHNIQUE: Test bolus sequences followed by intravenous administration 70 mL of Omnipaque 350. Helical imaging was performed in the axial plane from the aortic arch to the skull vertex. Delayed postcontrast imaging of the head was also performed. The data was processed at the geospatial technologist's workstation for generation of MIP sequences. Angled MIPs and volume rendered reformatted images were also generated at an offline 3D workstation. Stenoses are assessed in accordance with Melton et al. Quantification of Carotid Stenosis on CT Angiography. AJR 2006. 27(1):13-19. [address] CT examination was performed using dose optimization techniques as appropriate, variously including the following: *Automated exposure control *Adjustment of mA and/or kV according to patient size (this includes techniques or standardized protocols for targeted exams where dose is matched to indication/reason for exam; i.e. extremities or head) *Use of iterative reconstruction technique DLP: 1505 mGy-cm FINDINGS: CT HEAD: No abnormal intracranial enhancement is visualized. Please see separately dictated head CT for additional findings. CTA HEAD: Anterior circulation: Right internal carotid artery: Atherosclerosis without flow-limiting stenosis. Right middle cerebral artery: No hemodynamically significant stenosis. Right anterior cerebral artery: No hemodynamically significant stenosis. Left internal carotid artery: Atherosclerosis without flow-limiting stenosis. Left middle cerebral artery: No hemodynamically significant stenosis. Left anterior cerebral artery: No hemodynamically significant stenosis. Posterior circulation: Right vertebral artery: No hemodynamically significant stenosis. Left vertebral artery: No hemodynamically significant stenosis. Basilar artery: No hemodynamically significant stenosis. Right posterior cerebral artery: Diminutive P1 segment with patent posterior communicating artery. Left posterior cerebral artery: No hemodynamically significant stenosis. No high flow vascular malformation or significant aneurysmal dilatation is visualized. The major dural venous sinuses are grossly within normal limits given arterial technique. CTA NECK: Aortic arch: Normal anatomy. Prominent tortuosity in the proximal left subclavian artery. Mild narrowing of the proximal left subclavian artery secondary to calcified and noncalcified atherosclerotic plaque. Right common carotid artery: No hemodynamically significant stenosis. Right proximal internal carotid artery: Atherosclerosis without flow-limiting stenosis. Right mid/distal internal carotid artery: No hemodynamically significant stenosis. Left common carotid artery: No hemodynamically significant stenosis. Left proximal internal carotid artery: Atherosclerosis without flow-limiting stenosis. Left mid/distal internal carotid artery: No hemodynamically significant stenosis. Right vertebral artery: No hemodynamically significant stenosis. Left vertebral artery: No hemodynamically significant stenosis. CT NECK: Multilevel degenerative changes of cervical spine. At least moderate spinal canal stenosis at C3-C4 is noted. CT/CT angio head neck IMPRESSION: CTA NECK: No hemodynamically significant stenosis. CTA HEAD: No proximal vessel occlusion or high-grade stenosis.
--- NOTE | ~2024-03-28 | CT_ITS ---
EXAMINATION: CT HEAD WITHOUT CONTRAST CLINICAL INFORMATION: Weakness COMPARISON: CT head 09/29/2023 TECHNIQUE: Contiguous axial imaging was performed from the skull base to vertex without intravenous administration of contrast. This CT examination was performed using dose optimization techniques as appropriate, variously including the following: *Automated exposure control *Adjustment of mA and/or kV according to patient size (this includes techniques or standardized protocols for targeted exams where dose is matched to indication/reason for exam; i.e. extremities or head) *Use of iterative reconstruction technique DLP: 707 mGy-cm FINDINGS: There is no evidence of acute intracranial hemorrhage, midline shift or mass effect. [place] to white matter differentiation is well preserved. No evidence of acute territorial edematous infarction. No abnormal extra-axial fluid collection. Moderate cerebral volume loss is noted with proportionate dilatation of the ventricles and cortical sulci. Bilateral periventricular and subcortical white matter moderately extensive patchy low-attenuation changes are again noted, likely of chronic microangiopathy. No abnormal extra-axial fluid collection. Calcific atherosclerosis of the internal carotid and vertebral arteries. The visualized paranasal sinuses are clear. Mastoid air cells and middle ear cavities are well-aerated. No acute osseous abnormality. No significant calvarial soft tissue swelling or hematoma. CT/CT head/brain wo IV con IMPRESSION: No acute intracranial abnormality. Specifically, there is no evidence of acute intracranial hemorrhage or acute territorial edematous infarction. Moderate to severe white matter changes, likely of chronic microangiopathy. Evaluation for small acute or subacute infarct in this setting is limited. If clinically deemed necessary, MRI will be helpful for further evaluation.
--- NOTE | ~2024-03-28 | XR_ITS ---
EXAMINATION: XR SHOULDER, LEFT CLINICAL INFORMATION: Reason for Exam pain, injury COMPARISON: None TECHNIQUE: Four views of the shoulder. FINDINGS: No acute fracture or dislocation. Mild degenerative changes of the acromioclavicular and glenohumeral joints with degenerative spurring. Soft tissues are unremarkable. XR/XR shoulder LT min 2V IMPRESSION: * No acute osseous abnormality. Mild osteoarthritis of the shoulder.
--- NOTE | ~2024-03-28 | XR_ITS ---
EXAMINATION: XR CHEST CLINICAL INFORMATION: Fever and weakness COMPARISON: Chest radiograph 04/02/[address] 04/03/2023 TECHNIQUE: Frontal view of the chest was obtained. FINDINGS: No significant abnormality is noted involving the heart, lungs, mediastinum, bony thorax or soft tissues. XR/XR chest 1V IMPRESSION: Unremarkable examination.
[2024-03-28 14:09] VITALS: BP 144/84; BP 150/94; PULSE 77; PULSE 82; RESP 18; TEMP 38.3; O2SAT 97; O2SAT 98; BMI 22.4
--- NOTE | 2024-03-28 14:21 | PC.NURSE ---
This RN noted that pt. cannot lift his left arm. Annmarie Ramos MD to bedside to assess. MD requesting this RN to call pt.'s facility ([facility]) to see if this is pt.'s baseline.
--- NOTE | 2024-03-28 14:44 | PC.NURSE ---
Unable to reach staff at [facility] after appx. seven attempts. Called pt.'s son and left VM. Then called pt.'s daughter, who states that pt. does have a known left-sided deficit from a number of strokes in the past. Annmarie Ramos MD aware.
--- NOTE | 2024-03-28 14:54 | PC.NURSE ---
Pt.'s son called. States that the abnormal ROM in the left arm is not normal, but states that his father has fallen a few times over the last few days and beliebes that he has hurt the arm. Annmarie Ramos MD aware.
--- NOTE | 2024-03-28 14:57 | PC.NURSE ---
Pt. on post partum nurse at this time.
[2024-03-28 14:58] VITALS: BP 138/83; PULSE 72; RESP 16; TEMP 38.3; O2SAT 98
[2024-03-28] MEDS: Acetaminophen Supp 650 MG SUPP.RECT PR (15:26)
[2024-03-28 15:27] LABS: Lactic Acid 1.1 mmol/L (0.5-2.0)
[2024-03-28 15:32] LABS: Alanine Aminotransferase 39 U/L (0-40); Albumin Level 4.8 g/dL (3.5-5.0); Alkaline Phosphatase 107 U/L (39-117); Anion Gap 16 (12-20); Aspartate Amino Transferase 24 U/L (5-37); Bilirubin Total 1.5 mg/dL (0.0-1.0); Blood Urea Nitrogen 16 mg/dL (9-16); Calcium 9.7 mg/dL (8.4-10.2); Carbon Dioxide 27 mmol/L (22-29); Chloride 104 mmol/L (96-108); Estimated Glomerular Filt Rate 59; Glucose Random 102 mg/dL (60-115); Magnesium 2.1 mg/dL (1.6-2.6); Potassium 4.7 mmol/L (3.3-5.1); Sodium 142 mmol/L (135-145)
[2024-03-28 15:44] LABS: Basophils Percent Auto 0.3 % (0-2); PLT CLUMP 1; Red Cell Distribution Width 14.1 % (11.0-16.0); SCAN SMEAR FLAG 1
[2024-03-28 15:46] LABS: Hematocrit 44.3 % (42.0-52.0); Hemoglobin 15.5 g/dl (14.0-18.0); Imm Gran Abs Auto 0.04 X10*3/uL (0.00-0.03); Imm Gran Pct Auto 0.6 % (0.0-0.4); Lymphocytes Absolute Auto 0.4 X10*3/uL (1.2-4.9); Lymphocytes Percent Auto 5.1 % (20-40); MANUAL DIFF FLAG SCAN; Mean Corpuscular Hemoglobin 29.5 pg (27.0-33.0); Mean Corpuscular Volume 84.2 fL (80.0-98.0); Mean Platelet Volume 9.9 fL (9.4-12.4); Monocytes Absolute Auto 0.5 X10*3/uL (0.1-1.2); Monocytes Percent Auto 6.8 % (2-11); Neutrophils Percent Auto 87.2 % (45-73); Red Blood Count 5.26 X10*6/uL (4.60-5.80)
[2024-03-28 16:02] LABS: Platelet Count 104 X10*3/uL (160-400); White Blood Count 6.9 X10*3/uL (4.8-10.8)
--- NOTE | 2024-03-28 16:09 | ED_ITS ---
HPI - General Adult General Chief complaint: Weakness Stated complaint: WEAKNESS DEHYDRATION Time Seen by Provider: 03/28/24 16:04 Source: patient, family (patient's son) and EMS Mode of arrival: EMS Limitations: no limitations History of Present Illness ED Provider: Monica Turcios PA-C HPI narrative: 73 year old male patient with dementia, poor balance, HLD, anxiety, general weakness, recurrent UTI, hyperglycemia, and multiple falls presents to the ER via ambulance from home due to frequent falls. The patient is unsure why he is in the hospital. Reports having generalized weakness, and unable to lift left arm. States that he fell but denies hitting head or LOC. Denies headache, vision changes, chest pain, palpitations, N/V, or pain. He reports having to frequently urinate denies dysuria, hematuria, or urge. No fever or chills. Relieving factors: none Exacerbating factors: none Associated symptoms: weakness Treatments prior to arrival: none Related Data Previous Rx's ?Medication ?Instructions ?Recorded Washable bed pad #10 ea 12/01/21 atorvastatin 40 mg tablet 40 mg PO DAILY #90 tabs 09/06/23 metoprolol tartrate 50 mg tablet 50 mg PO BID #180 tabs 09/06/23 sertraline 50 mg tablet 50 mg PO DAILY #90 tabs 09/06/23 finasteride 5 mg tablet 5 mg PO DAILY 90 days #90 tabs 10/11/23 methenamine hippurate 1 gram tablet 1 g PO daily 90 days #90 tabs 10/11/23 Depend Underwear For Men Alexy #64 ea 01/17/24 (diaper,brief,adult,disposable) Allergies Allergy/AdvReac Type Severity Reaction Status Date / Time No Known Allergies Allergy Verified 03/28/24 14:13 [No Known Allergies*] Review of Systems 2 Constitutional: Constitutional: Reports no additional constitutional complaints, Denies chills, Denies fever(s), Denies night sweats and Reports weakness Eyes: Eyes: Reports no additional eye complaints, Denies blurry vision, Denies change in vision, Denies diplopia, Denies eye discharge, Denies loss of vision and Denies eye pain ENT: Denies dizziness Cardiovascular: Cardiovascular: Reports no additional cardiovascular complaints, Denies chest pain, Denies lightheadedness, Denies Loss of Consciousness and Denies dyspnea Respiratory: Respiratory: Reports no additional respiratory complaints and Denies dyspnea Gastrointestinal: Gastrointestinal: Reports no additional gastrointestinal complaints, Denies abdominal pain, Denies melena, Denies hematochezia, Denies change in bowel habits and Denies change in stool character Genitourinary: Genitourinary: Reports no additional male genitourinary complaints, Denies hematuria, Denies oliguria, Denies difficulty urinating, Denies dysuria, Denies urinary frequency, Denies urinary hesitancy, Denies urinary incontinence and Denies urinary urgency Musculoskeletal: Musculoskeletal: Reports no additional musculoskeletal complaints, Denies numbness and Denies tingling Neurologic: Denies dizziness, Denies loss of vision, Denies numbness, Denies tingling and Reports weakness Psychiatric: Psychiatric: Reports no additional psychiatric complaints Endocrine: Endocrine: Reports no additional endocrine complaints Hematologic/Lymphatic: Hematologic/Lymphatic: Reports no additional hematologic/lymphatic complaints Allergic/Immunologic: Allergic/Immunologic: Reports no additional allergic/immunologic complaints PMFSH Past Medical History Attestation statement: The following information was validated with the patient. (all information validated with the patient's son) Source: old records reviewed, obtained from family (patient's son provided additional history and confirmed the history provided by the patient) and nursing notes reviewed Medical History Thrombocytopenia History of CVA (cerebrovascular accident) History of CVA (cerebrovascular accident) Syncope Hypertension Hearing loss Recurrent UTI Annual physical exam Hyperglycemia BPH (benign prostatic hyperplasia) Hyperlipidemia Abnormal computed tomography angiography (CTA) Dementia Lumbar spinal stenosis CVA (cerebral vascular accident) HTN (hypertension) Follicular lymphoma Surgical History No pertinent past surgical history H/O colonoscopy Family History Family History Father Colon cancer HTN (hypertension) Brother Non-Hodgkin lymphoma HTN (hypertension) Sister HTN (hypertension) Mother HTN (hypertension) TIA (transient ischemic attack) Social History Social History Household Members: Unknown / Unable to assess Household Members Other:: He mentioned 2 dogs and a person, but not answering now. Housing: Unknown / Unable to assess Housing Other:: Unsure if this is correct. Are you a primary home child care provider to a significant other at home: No Unable to assess alcohol history related to: Unable to respond Alcohol intake: never Patient Tobacco Use Status: Former Tobacco user Smoked in Last 30 Days: No e-Cigarette/Vaping Use: Never Used Use of substances other than those prescribed or required for medical reasons: No Advance Directives: Yes Advance Directives on File: Yes Advance Directives Date on File: 08/29/22 Do you have a plan to hurt others: No Plan service: No Current occupational status: retired Cognitive needs: No Hearing needs: Yes Vision needs: No Physical Exam ED Vital Signs: Vital Signs - 24 hr 03/28/24 14:09 03/28/24 14:58 03/28/24 16:38 Temperature 100.9 F H 100.9 F H 99.0 F Pulse Rate 77 72 78 Respiratory Rate 18 16 15 Blood Pressure 144/84 H 138/83 135/82 Pulse Oximetry 98 98 97 Oxygen Delivery Method Room Air Room Air Room Air 03/28/24 21:15 Temperature 99.2 F Pulse Rate 67 Respiratory Rate 18 Blood Pressure 186/98 H Pulse Oximetry 98 Oxygen Delivery Method Room Air BMI result Body Mass Index 22.4 Const General: cooperative, no acute distress, alert and awake Nutritional Appearance: thin Orientation/consciousness: oriented to person, oriented to place and No oriented to time Limitations: no limitations HENMT Head: Yes normal to inspection Ears: hearing grossly normal bilaterally and external ears normal General nose exam: Normal external nose present, no nasal discharge noted and no epistaxis Face and sinus: Yes normal facial exam, No abrasion and No laceration Mouth: Normal oral and palatal mucosa present, no drooling and no muffled voice Eyes General: appearance normal, both eyes and all related structures Periorbital: periorbital findings normal Eyelids: Yes eyelids normal Conjunctivae: conjunctivae normal Pupils: Equal, round and reactive pupils present EOM: EOMs intact bilaterally Neck Neck: Yes normal visual inspection Chest Chest palpation & inspection: normal inspection of the chest Resp Effort & Inspection: normal respiratory effort Auscultation: clear to auscultation bilaterally Cardio Jugular venous distension: no JVD Rate: regular rate Rhythm: regular rhythm GI Inspection: Yes normal to inspection Neuro Other: patient has left arm weakness General: oriented to person, oriented to place and No oriented to time Cranial nerves: Yes Equal, round and reactive pupils present Cognition (Neuro): normal cognition Extrem General: Yes normal to inspection, Yes full ROM and Yes capillary refill normal Psych Appearance: grossly normal Mental Status: mental status grossly normal Affect: normal affect Attitude: cooperative Thought process: Normal thought process present Thought content: Normal thought content present Insight: Good insight present (Psych) Medications Administered Discontinued Medications Generic Name Dose Route Start Last Admin Trade Name Frelior PRN Reason Stop Dose Admin Acetaminophen 650 mg 03/28/24 15:00 03/28/24 15:26 Acetaminophen Supp 650 Mg Supp.Rect IL 03/28/24 15:01 650 mg ONCE ONE Administration Ceftriaxone Sodium 1 gm/ 50 mls @ 100 mls/hr 03/28/24 16:11 03/28/24 17:37 Sodium Chloride IV 03/28/24 16:40 Infused ONCE ONE Infusion Sodium Chloride 1,000 mls @ 999 mls/hr 03/28/24 16:15 03/28/24 17:37 Ns IV 03/28/24 17:15 Infused .Q1H1M DEONDRE Infusion Iohexol 100 ml 03/28/24 17:47 03/28/24 17:47 Iohexol 350 Mg/Ml 100 Ml Infus..Btl IV 03/28/24 17:48 70 ml ONCE ONE Administration Medical Decision Making Medical Decision Making MDM Narrative: Patient is a 73 year old assigned male at with a history of HTN, HLD, anxiety, depression, and CVA with left sided deficit presenting to the emergency department today with increased weakness and frequent falls. Patient's physical exam was as noted in the physical exam portion of this note. Patient's left arm is weaker on examination however, I confirmed with the patient's daughter that the patient has left sided deficit from a previous CVA. Patient's blood work was unremarkable. Patient's urine showed an acute UTI. Patient's COVID-19 test was positive. Patient's chest x-ray, head CT, and head CTA showed no acute process. Patient's clinical presentation is most consistent with COVID-19 and a UTI and not sepsis (@1600). I explained my physical exam findings as well as all test results to the patient and the patient's son. I answered all questions asked by the patient and the patient's son. Patient's son stated that the patient is too weak to return him to him and he would like the patient to be placed back in short term rehab. Patient awaiting physical therapy and case management evaluation. Differential Diagnosis Differential Diagnoses: The differential diagnosis associated with the presentation includes UTI COVID-19 Chronic weakness Admission/Observation Consideration of admission/observation: Escalation of care including admission/observation considered Patient would have been admitted to the hospital had his work up had any findings where hospital admission was appropriate and his clinical presentation warranted hospital admission. Lab Data [facility] Lab Attestation statement: I reviewed the patient's lab results. My interpretation of these results are in the [facility] Rationale portion of this note. 03/28/24 15:09 03/28/24 15:09 Labs: Lab Results 03/28/24 03/28/24 03/28/24 Range/Units 15:09 18:56 19:07 WBC 6.9 (4.8-10.8) X10*3/uL RBC 5.26 (4.60-5.80) X10*6/uL Hgb 15.5 (14.0-18.0) g/dl Hct 44.3 (42.0-52.0) % MCV 84.2 (80.0-98.0) fL MCH 29.5 (27.0-33.0) pg MCHC 35.0 (31.0-36.0) g/dl RDW 14.1 (11.0-16.0) % Plt Count 104 L (160-400) X10*3/uL MPV 9.9 (9.4-12.4) fL Immature Gran % (Auto) 0.6 H (0.0-0.4) % Neut % (Auto) 87.2 H (45-73) % Lymph % (Auto) 5.1 L (20-40) % Noble % (Auto) 6.8 (2-11) % Eos % (Auto) 0.0 (0-4) % Baso % (Auto) 0.3 (0-2) % Lymph # (Auto) 0.4 L (1.2-4.9) X10*3/uL Noble # (Auto) 0.5 (0.1-1.2) X10*3/uL Eos # (Auto) 0.0 (0.0-0.4) X10*3/uL Baso # (Auto) 0.0 (0.0-0.2) X10*3/uL Abs Immat Gran (auto) 0.04 H (0.00-0.03) X10*3/uL Absolute Neuts (auto) 6.0 (2.0-8.3) x10*3/uL Absolute Nucleated RBC 0.000 (0.0-0.012) X10*3/uL Nucleated RBC % (auto) 0.0 (0.0-0.2) /100WBC Smear Tech's Comments VERIFIED Sodium 142 (135-145) mmol/L Potassium 4.7 (3.3-5.1) mmol/L Chloride 104 (96-108) mmol/L Carbon Dioxide 27 (22-29) mmol/L Anion Gap 16 (12-20) BUN 16 (9-16) mg/dL Creatinine 1.20 (0.5-1.4) mg/dL Estim Creat Clear Calc 54.0 Estimated GFR 59 Random Glucose 102 (60-115) mg/dL Lactic Acid 1.1 (0.5-2.0) mmol/L Calcium 9.7 (8.4-10.2) mg/dL Magnesium 2.1 (1.6-2.6) mg/dL Total Bilirubin 1.5 H (0.0-1.0) mg/dL AST 24 (5-37) U/L ALT 39 (0-40) U/L Alkaline Phosphatase 107 (39-117) U/L Total Protein 8.0 (6.5-8.0) g/dL Albumin 4.8 (3.5-5.0) g/dL Urine Color Yellow Urine Appearance Cloudy Urine pH 6.0 (5.0-9.0) Ur Specific [place] >= 1.030 H (1.005-1.025) Urine Protein 30 (1+) H (Neg-Trace) mg/dL Urine Glucose (UA) Negative (Negative) mg/dL Urine Ketones Negative (Negative) mg/dL Urine Blood Moderate (2+) H (Negative) Urine Nitrite Positive H (Negative) Ur Leukocyte Esterase Large (3+) H (Negative) Urine RBC 11-20 H (0-2) /HPF Urine WBC >50 H (0-5) /HPF Ur Squamous Epith Cells 0-2 (0-2) /HPF Urine Bacteria 4+ (None Seen) Hyaline Casts 0-2 (0-2) /LPF Influenza Type A (PCR) NEGATIVE (Negative) Influenza Type B (PCR) NEGATIVE (Negative) RSV RNA Qual (PCR) NEGATIVE (Negative) SARS-CoV-2 RNA (RT-PCR) POSITIVE A (Negative) Independent Interpretation I performed an independent interpretation of an: Plain X-Ray and CT Scan Interpretation: My interpretation is in agreement with the radiologist's impression of these imaging studies. - EXAMINATION: XR CHEST CLINICAL INFORMATION: Fever and weakness COMPARISON: Chest radiograph 04/02/[address] 04/03/2023 TECHNIQUE: Frontal view of the chest was obtained. FINDINGS: No significant abnormality is noted involving the heart, lungs, mediastinum, bony thorax or soft tissues. XR/XR chest 1V IMPRESSION: Unremarkable examination. Dictated By: Wesley Hummel MD Signed By: Electronically signed by Wesley Hummel MD 03/28/242025 - EXAMINATION: XR SHOULDER, LEFT CLINICAL INFORMATION: Reason for Exam pain, injury COMPARISON: None TECHNIQUE: Four views of the shoulder. FINDINGS: No acute fracture or dislocation. Mild degenerative changes of the acromioclavicular and glenohumeral joints with degenerative spurring. Soft tissues are unremarkable. XR/XR shoulder LT min 2V IMPRESSION: * No acute osseous abnormality. Mild osteoarthritis of the shoulder. Dictated By: Susan Velez MD Signed By: Electronically signed by Susan Velez MD 03/28/24 1756 - EXAMINATION: CT ANGIOGRAM HEAD CT ANGIOGRAM NECK CLINICAL INFORMATION: Reason for Exam left sided deficit, AMS COMPARISON: Same-day CT head, CT angiogram of the head and neck 02/15/2023 TECHNIQUE: Test bolus sequences followed by intravenous administration 70 mL of Omnipaque 350. Helical imaging was performed in the axial plane from the aortic arch to the skull vertex. Delayed postcontrast imaging of the head was also performed. The data was processed at the nuclear technologist's workstation for generation of MIP sequences. Angled MIPs and volume rendered reformatted images were also generated at an offline 3D workstation. Stenoses are assessed in accordance with Melton et al. Quantification of Carotid Stenosis on CT Angiography. AJR 2006. 27(1):13-19. [address] CT examination was performed using dose optimization techniques as appropriate, variously including the following: *Automated exposure control *Adjustment of mA and/or kV according to patient size (this includes techniques or standardized protocols for targeted exams where dose is matched to indication/reason for exam; i.e. extremities or head) *Use of iterative reconstruction technique DLP: 1505 mGy-cm FINDINGS: CT HEAD: No abnormal intracranial enhancement is visualized. Please see separately dictated head CT for additional findings. CTA HEAD: Anterior circulation: Right internal carotid artery: Atherosclerosis without flow-limiting stenosis. Right middle cerebral artery: No hemodynamically significant stenosis. Right anterior cerebral artery: No hemodynamically significant stenosis. Left internal carotid artery: Atherosclerosis without flow-limiting stenosis. Left middle cerebral artery: No hemodynamically significant stenosis. Left anterior cerebral artery: No hemodynamically significant stenosis. Posterior circulation: Right vertebral artery: No hemodynamically significant stenosis. Left vertebral artery: No hemodynamically significant stenosis. Basilar artery: No hemodynamically significant stenosis. Right posterior cerebral artery: Diminutive P1 segment with patent posterior communicating artery. Left posterior cerebral artery: No hemodynamically significant stenosis. No high flow vascular malformation or significant aneurysmal dilatation is visualized. The major dural venous sinuses are grossly within normal limits given arterial technique. CTA NECK: Aortic arch: Normal anatomy. Prominent tortuosity in the proximal left subclavian artery. Mild narrowing of the proximal left subclavian artery secondary to calcified and noncalcified atherosclerotic plaque. Right common carotid artery: No hemodynamically significant stenosis. Right proximal internal carotid artery: Atherosclerosis without flow-limiting stenosis. Right mid/distal internal carotid artery: No hemodynamically significant stenosis. Left common carotid artery: No hemodynamically significant stenosis. Left proximal internal carotid artery: Atherosclerosis without flow-limiting stenosis. Left mid/distal internal carotid artery: No hemodynamically significant stenosis. Right vertebral artery: No hemodynamically significant stenosis. Left vertebral artery: No hemodynamically significant stenosis. CT NECK: Multilevel degenerative changes of cervical spine. At least moderate spinal canal stenosis at C3-C4 is noted. CT/CT angio head neck IMPRESSION: CTA NECK: No hemodynamically significant stenosis. CTA HEAD: No proximal vessel occlusion or high-grade stenosis. Dictated By: Jadiel Nicole MD Signed By: Electronically signed by Jadiel Nicole MD 03/28/24 1829 - EXAMINATION: XR ELBOW, LEFT CLINICAL INFORMATION: Pain, trauma COMPARISON: None available. TECHNIQUE: AP, lateral, and oblique views of the left elbow. FINDINGS: No acute fracture or dislocation. Joint spaces are maintained. Soft tissue swelling along the dorsal aspect of the elbow. No joint effusion. XR/XR elbow LT min 3V IMPRESSION: 1. No acute fracture or dislocation. 2. Soft tissue swelling along the dorsal aspect of the elbow. Dictated By: Susan Velez MD Signed By: Electronically signed by Susan Velez MD 03/28/24 1754 - EXAMINATION: CT HEAD WITHOUT CONTRAST CLINICAL INFORMATION: Weakness COMPARISON: CT head 09/29/2023 TECHNIQUE: Contiguous axial imaging was performed from the skull base to vertex without intravenous administration of contrast. This CT examination was performed using dose optimization techniques as appropriate, variously including the following: *Automated exposure control *Adjustment of mA and/or kV according to patient size (this includes techniques or standardized protocols for targeted exams where dose is matched to indication/reason for exam; i.e. extremities or head) *Use of iterative reconstruction technique DLP: 707 mGy-cm FINDINGS: There is no evidence of acute intracranial hemorrhage, midline shift or mass effect. [place] to white matter differentiation is well preserved. No evidence of acute territorial edematous infarction. No abnormal extra-axial fluid collection. Moderate cerebral volume loss is noted with proportionate dilatation of the ventricles and cortical sulci. Bilateral periventricular and subcortical white matter moderately extensive patchy low-attenuation changes are again noted, likely of chronic microangiopathy. No abnormal extra-axial fluid collection. Calcific atherosclerosis of the internal carotid and vertebral arteries. The visualized paranasal sinuses are clear. Mastoid air cells and middle ear cavities are well-aerated. No acute osseous abnormality. No significant calvarial soft tissue swelling or hematoma. CT/CT head/brain wo IV con IMPRESSION: No acute intracranial abnormality. Specifically, there is no evidence of acute intracranial hemorrhage or acute territorial edematous infarction. Moderate to severe white matter changes, likely of chronic microangiopathy. Evaluation for small acute or subacute infarct in this setting is limited. If clinically deemed necessary, MRI will be helpful for further evaluation. Dictated By: Ivis Varghese MD Signed By: Electronically signed by Ivis Varghese MD 03/28/24 6847 Radiology Impression Discussion of test interpretation with radiology: I have reviewed the radiologist's reading. Independent Historian Clinical information obtained from an independent historian. History obtained from or confirmed by: EMS (EMS provided additional history and confirmed the history provided by the patient.) and Other (patient's son and daughter provided additional history and confirmed the history provided by the patient.) Prescription Management I considered prescription management with: Antibiotic (patient prescribed an antibiotic for UTI) Chronic Conditions Patient?s care impacted by: Hypertension Critical Care Time Critical Care Time Critical Care Time: Yes Total Critical Care Time: 34 Attestation: I spent 34 minutes of Critical Care Time with this patient. This does not include time spent on separately reported billable procedures. Discharge Plan Discharge Clinical Impression: COVID-19, Acute UTI Patient Disposition: Still a Patient Instructions: Urinary Tract Infection in Men (DC), COVID-19 (Coronavirus Disease 2019) (ED) Additional Instructions: Take your antibiotic as prescribed. Follow up with your primary care provider. Return to the emergency department immediately if your symptoms worsen or if you develop any dizziness, shortness of breath, difficulty breathing, chest pain, blurry vision, loss of vision, nausea, vomiting, abdominal pain, fever, chills, back pain, or any other complaints. Prescriptions: No Action (DME) Washable bed pad Medium See Rx Instructions .Route .MEDSUPPLY Qty: 10 0RF Rx Instructions: As directed (DME) Depend [facility] See Rx Instructions .MEDSUPPLY Qty: 64 11RF Rx Instructions: As directed-size sm/med sertraline 50 mg tablet 50 mg PO DAILY Qty: 90 2RF atorvastatin 40 mg tablet 40 mg PO DAILY Qty: 90 3RF metoprolol tartrate 50 mg tablet 50 mg PO BID Qty: 180 3RF methenamine hippurate 1 gram tablet 1 g PO daily 90 Days Qty: 90 1RF finasteride 5 mg tablet 5 mg PO DAILY 90 Days Qty: 90 1RF Rx Instructions: Take medication alternating calendar months Referrals: [facility] [Provider Group] (Call to establish and follow up with a primary care provider. If you already have a primary care provider, please follow up with them.) [facility], Ana Luisa [Provider Group] [facility],Geeta [Provider Group] Print Language: [place]
[2024-03-28] MEDS: 0.9 % Sodium Chloride 1,000 ML 999 ML IV (16:36)
[2024-03-28] MEDS: cefTRIAXone sodium 1 GM in 0.9 % Sodium Chloride 50 ML IV (16:37)
[2024-03-28 16:38] VITALS: BP 135/82; PULSE 78; RESP 15; TEMP 37.2; O2SAT 97
[2024-03-28 17:16] LABS: SLIDE REVIEW VERIFIED
[2024-03-28] MEDS: iohexoL 350 MG/ML 100 ML INFUS..BTL IV (17:47)
[2024-03-28 19:13] LABS: Appearance Urine Cloudy; Color Urine Yellow; Glucose Urine UA Negative (Negative); Leukocyte Esterase Urine Large (3+) (Negative); Nitrite Urine Positive (Negative); Specific Gravity - Urine >= 1.030 (1.005-1.025); UMIC TRIGGER UACC YES; Urine Blood Moderate (2+) (Negative); Urine Ketones Negative (Negative); Urine Protein 30 (1+) mg/dL (Neg-Trace)
[2024-03-28 19:18] LABS: Bacteria Urine 4+ (None Seen); Hyaline Casts Urine 0-2 /LPF (0-2); Squamous Epithelial Cell Urine 0-2 /HPF (0-2); UACC Culture Trigger YES; WBC Urine >50 /HPF (0-5)
[2024-03-28 19:41] LABS: Influenza A PCR NEGATIVE (Negative); Influenza B PCR NEGATIVE (Negative); Resp Syncy Virus RNA Qual PCR NEGATIVE (Negative); SARS COV2 PCR INHOUSE POSITIVE (Negative)
--- NOTE | 2024-03-28 20:25 | PC.NURSE ---
late entry; assumed care of pt at 1915, pt found in ed15 without hospital gown/socks. when asked pt unsure and requests gown and socks. pt dressed with hospital gown and socks, repositioned and blankets provided. pt moved to room ed12 closer to nurses station. droplet precautions in place for covid+. pt denies cp/sob/n/v/d. speaking full clear sentences. call zhang within reach.
--- NOTE | 2024-03-28 21:12 | PC.NURSE ---
son called regards to pt d/c. per son pt does not stay at [place] as he was only there while son was in [place]. son states he feels as pt is too weak for him to provide appropriate care at home. PA made aware. pt to be pt/cm at this time. hospital bed requested for pt comfort. awaiting orders.
[2024-03-28 21:15] VITALS: BP 186/98; PULSE 67; RESP 18; TEMP 37.3; O2SAT 98
--- NOTE | 2024-03-28 22:07 | PC.NURSE ---
pt placed in hospital bed. brief removed. bed linen changed. papi care provided. [place] cath placed for urinary incontinence. bed alarm on. call zhang within reach.
[2024-03-29 01:46] VITALS: BP 165/92; PULSE 73; RESP 15; TEMP 36.5; O2SAT 97
[2024-03-29] MEDS: cefuroxime axetiL 250 MG TABLET PO ×2 (09:08→21:00)
--- NOTE | 2024-03-29 10:06 | PC.NURSE ---
this RN resumed care of pt at 0645. pt alert and oriented to self only. pt seemingly confused but pleasant. abx administered per provider order. pt's primary contact (son - shorty) called multiple times in attempts to complete med rec. have not received a call back from son yet at this time. [facility] called in attempts to complete med rec as well. pharmacy only able to provide 1/2 information at pt receives some scripts by mail. this RN then called [facility] pharmacy[place]requesting if they could complete med rec. medication reconciliation being completed by pharmacy at this time. pt remains in hospital bed/resting in no apparent distress. no sob/wob noted. respirations remain even/unlabored. bed alarm turned on for safety precautions. plan of care ongoing. call zhang placed within reach.
--- NOTE | 2024-03-29 10:25 | PHA.MEDREC ---
Pharmacy Consult ? Medication Reconciliation Pharmacy has completed the medication reconciliation. Used pharmacy claims from what patient was receiving at [facility].
--- NOTE | 2024-03-29 11:40 | PC.NURSE ---
med rec completed by pharmacy. covering provider notified/aware.
--- NOTE | 2024-03-29 12:50 | PC.NURSE ---
report given to RN in overflow at this time. transport notified/aware.
--- NOTE | 2024-03-29 13:06 | PC.NURSE ---
pt being transported to overflow at this time.
--- NOTE | 2024-03-29 13:52 | PC.NURSE ---
[phone] mike bautista son
--- NOTE | 2024-03-29 14:50 | MHC.CM.PN ---
Male 73 s/p fall DX UTI BIBA. He lives with his son, Kamar/HCP/POA. CM spoke with Kamar via phone. He stated that the patient needs strengthening prior to return home. CM explained to Kamar that the patient is not admitted. He will not have a 3 midnight qualifying stay for STR. CM explained that a SNF can accept a patient for alf care; which will provide less intense rehab. The patient has insurance coverage (Medicare+Medicaid) to cover alf care. [facility] preference for STR is ELS. A referral has been sent with clinical information. The SNF was informed that a PT eval will be done tomorrow. CM will send a clinical update. [facility] ELS under alf care via BLS, pending clinical review and bed offer.
[2024-03-29 15:21] VITALS: BP 147/94; PULSE 101; RESP 18; TEMP 37.2; O2SAT 94
--- NOTE | 2024-03-29 18:23 | PC.NURSE ---
Patient arrived to the unit at 1315 in bed, personal belongings in large duffle bag at bedside. Patient confused, keeps using call zhang and when answer states he does not need anything. Patient reports weakness and refuses to get out of bed, arrived to the unit with external catheter but removed it stating he is able to void in the urinal. Reports ambulating at baseline with a walker but does not want to utilized walker. Patient repositioned in bed and educated on the importance of frequent reposition. No complaints of pain.
[2024-03-29 21:00] VITALS: BP 129/99; PULSE 100
[2024-03-29] MEDS: Metoprolol Tartrate 50 MG TABLET PO (21:00)
[2024-03-29 21:12] VITALS: BP 129/99; PULSE 100; RESP 22; TEMP 37; O2SAT 95
--- NOTE | 2024-03-29 21:56 | PC.NURSE ---
Patient alert, oriented to self only, pleasantly confused. Patient denies any pain at this time, VSS. Patient took his bedtime medications whole with water. Patient noted to be soiled with urine and stool. Bed linens changed, pericare provided, [place] catheter applied. Patient offers no complaints at this time, call zhang within patient's reach, plan of care ongoing.
--- NOTE | 2024-03-30 00:06 | PC.NURSE ---
Patient awake, confused. He removed [place] catheter and has been making multiple attempts to get off the bed. This RN and tech re directed patient, reapplied [place] cath, bed alarm engaged, camera monitor # 17 placed in patient for safety, call zhang in patient's reach. Plan of care ongoing.
[2024-03-30 05:36] VITALS: BP 141/91; PULSE 69; RESP 21; TEMP 36.1; O2SAT 98
[2024-03-30] MEDS: Finasteride 5 MG TABLET PO (09:53)
[2024-03-30] MEDS: Metoprolol Tartrate 50 MG TABLET PO ×2 (09:53→21:10)
[2024-03-30] MEDS: Atorvastatin Calcium 40 MG TABLET PO (09:53)
[2024-03-30] MEDS: Sertraline HCL 50 MG TABLET PO (09:53)
[2024-03-30] MEDS: cefuroxime axetiL 250 MG TABLET PO ×2 (09:53→21:10)
[2024-03-30] MEDS: Methenamine Hippurate 1 GM TABLET PO (10:42)
[2024-03-30] MEDS: Doxazosin Mesylate 2 MG TABLET 4 MG PO (10:42)
--- NOTE | 2024-03-30 12:46 | MHC.CM.ED ---
Addendum entered by Rhina De Guzman 03/30/24 15:37: Patient's son, Kamar, made aware via telephone at [phone]. Addendum entered by Rhina De Guzman 03/30/24 15:36: Patient will go to [facility] via BLS tomorrow 03/31 at 1030am. [facility] booked. Med nec with patient. Patient, Caitlyn RN and Edilia STAFFORD aware. Original Note: Patient remains in ER overflow. Physical therapy eval completed. Short term rehab is recommended. [facility] does not have a bed to offer. Patient is Covid positive on 03/28. Referral broadcasted in [employer]. At this time, [facility] are able to offer a bed. These options were discussed with patient's son, Kamar, via telephone at [phone]. [facility] is Kamar's 1st choice. [facility] made aware. MDS and Level 1 completed. Faxed to [facility] and sent to [facility] via [facility]. Continue to monitor for d/c needs.
[2024-03-30 14:00] VITALS: BP 88/54; PULSE 86; RESP 18; TEMP 36.8; O2SAT 99
--- NOTE | 2024-03-30 15:00 | PC.NURSE ---
Addendum entered by Sofy Packer RN 03/30/24 19:11: Patient's blood pressure rechecked 1600 with reading 99/85 Original Note: Patient's blood pressure 86/54, rechecked manually for the same result. Provider notified, BP recheck in sitting position with reading of 88/60, will continue to monitor
[2024-03-30 15:58] VITALS: BP 99/85; PULSE 72; RESP 16; TEMP 36.2; O2SAT 98
--- NOTE | 2024-03-30 16:00 | MHC.EDTECH ---
THIS PCT ASSUMED CARE OF PATIENT AT 1500 ,VITALS TAKEN ,PATIENT WATCHING TELEVISION .CALL [facility] WITHIN PT REACH .
--- NOTE | 2024-03-30 17:08 | MHC.EDTECH ---
Patient was incontinent of urine and medium amount of soft bowel movement ,bed bath given ,bedding change ,gown change ,patient very confused ,was set up to eat dinner ,Plan of care continue .
--- NOTE | 2024-03-30 18:07 | MHC.EDTECH ---
Patient ate 75 % of meal and drank 240 ml fluids .
[2024-03-30 21:25] VITALS: BP 118/77; PULSE 59; RESP 21; TEMP 36.7; O2SAT 96
--- NOTE | 2024-03-31 02:58 | MHC.EDTECH ---
This US called [facility] @[id number] to verify transport to [place]. 1030 pickup
[2024-03-31 05:47] VITALS: BP 119/76; PULSE 68; RESP 20; TEMP 36.4; O2SAT 97
--- NOTE | 2024-03-31 06:29 | PC.NURSE ---
Assumed care at 1900. Patient slept through night, incontinent , vital signs stable. Confused at baseline.
--- NOTE | 2024-03-31 10:04 | PC.NURSE ---
RN/RN report given to Nona @[facility] ( ). Pt is to be transferred @[id number]
[2024-03-31] MEDS: Atorvastatin Calcium 40 MG TABLET PO (10:58)
[2024-03-31 11:00] VITALS: BP 119/76
[2024-03-31] MEDS: cefuroxime axetiL 250 MG TABLET PO (11:00)
[2024-03-31] MEDS: Finasteride 5 MG TABLET PO (11:00)
[2024-03-31] MEDS: Sertraline HCL 50 MG TABLET PO (11:00)
[2024-03-31] MEDS: Doxazosin Mesylate 2 MG TABLET 4 MG PO (11:00)
[2024-03-31] MEDS: Metoprolol Tartrate 50 MG TABLET PO (11:01)
== END 2024-03-31 11:17 ==
PROVIDERS: Physician Assistant; Physician Assistant Medical; Emergency Provider Emergency Medicine Emergency Medical Services; PCP Internal Medicine
DX: U07.1 COVID-19 (principal); N39.0 Urinary tract infection, site not specified; I10 Essential (primary) hypertension; E78.5 Hyperlipidemia, unspecified; F03.90 Unspecified dementia, unspecified severity, without behavioral disturbance, psychotic disturbance, mood disturbance, and anxiety; R29.6 Repeated falls; Z91.81 History of falling; Z86.73 Personal history of transient ischemic attack (TIA), and cerebral infarction without residual deficits; Z87.440 Personal history of urinary (tract) infections; Z87.891 Personal history of nicotine dependence; Z79.02 Long term (current) use of antithrombotics/antiplatelets; Z79.899 Other long term (current) drug therapy
CPT/HCPCS: 0241U; 36415; 70450; 70496; 70498; 71045; 73030; 73080; 80053; 81001; 83605; 83735; 85025; 87040; 87086; 87088; 87186; 96361; 96365; 97162; 99285; J0696; Q9967

== ENCOUNTER 2024-06-10 05:06 | Emergency (ER) | payer MEDICARE, MEDICAID, SELFPAY ==
--- NOTE | 2024-06-10 | ECG_ITS ---
Test Reason : AMS Blood Pressure : / mmHG Vent. Rate : 055 BPM Atrial Rate : 055 BPM P-R Int : 190 ms QRS Dur : 082 ms QT Int : 458 ms P-R-T Axes : 046 013 036 degrees QTc Int : 438 ms Sinus bradycardia Otherwise normal ECG When compared with ECG of 10-DEC-2023 12:14, No significant change was found Referred By: Generic ED Physician Electronically Signed By:DERRELL PAIGE
[2024-06-10 05:15] VITALS: BP 140/90; PULSE 62; O2SAT 97; BMI 23.0
[2024-06-10 05:22] VITALS: PULSE 55; RESP 15; TEMP 36.7; O2SAT 99
[2024-06-10 05:30] VITALS: BP 147/85; PULSE 54; RESP 18; TEMP 36.7; O2SAT 97
[2024-06-10 05:30] LABS: Basophils Percent Auto 0.8 % (0-2); Imm Gran Abs Auto 0.02 X10*3/uL (0.00-0.03); Imm Gran Pct Auto 0.4 % (0.0-0.4); PLT CLUMP 1; SCAN SMEAR FLAG 1
[2024-06-10 05:32] LABS: Eosinophils Absolute Auto 0.1 X10*3/uL (0.0-0.4); Eosinophils Percent Auto 2.3 % (0-4); Hematocrit 44.3 % (42.0-52.0); Hemoglobin 15.3 g/dl (14.0-18.0); Lymphocytes Percent Auto 18.4 % (20-40); Mean Corpuscular HGB Conc 34.5 g/dl (31.0-36.0); Mean Corpuscular Hemoglobin 29.4 pg (27.0-33.0); Mean Platelet Volume 10.2 fL (9.4-12.4); Monocytes Absolute Auto 0.4 X10*3/uL (0.1-1.2); Monocytes Percent Auto 7.5 % (2-11); Neutrophils Absolute Auto 3.8 x10*3/uL (2.0-8.3); Neutrophils Percent Auto 70.6 % (45-73); Red Blood Count 5.21 X10*6/uL (4.60-5.80); Red Cell Distribution Width 14.7 % (11.0-16.0)
[2024-06-10 05:33] LABS: MANUAL DIFF FLAG NO; Platelet Count 119 X10*3/uL (160-400); White Blood Count 5.3 X10*3/uL (4.8-10.8)
[2024-06-10 05:43] LABS: Alanine Aminotransferase 48 U/L (0-40); Albumin Level 4.3 g/dL (3.5-5.0); Alkaline Phosphatase 110 U/L (39-117); Anion Gap 12 (12-20); Aspartate Amino Transferase 34 U/L (5-37); Bilirubin Total 0.8 mg/dL (0.0-1.0); Blood Urea Nitrogen 22 mg/dL (9-16); Calcium 9.3 mg/dL (8.4-10.2); Carbon Dioxide 25 mmol/L (22-29); Chloride 111 mmol/L (96-108); Estimated Glomerular Filt Rate 53; Glucose Random 88 mg/dL (60-115); Potassium 4.2 mmol/L (3.3-5.1); Sodium 144 mmol/L (135-145); Total Protein 7.1 g/dL (6.5-8.0)
--- NOTE | 2024-06-10 06:05 | MHC.EDTECH ---
This Tech assumed care of this pt upon arrival. pt changed over into a hospital gown. Red fall risk precaution wristband and socks put on pt. pt EKG completed and handed to a provider. Bloodwork sent to the lab for processing
--- NOTE | 2024-06-10 06:42 | ED_ITS ---
HPI - General Adult General Chief complaint: General Medical Stated complaint: PER FAMILY MILDLY CONFUSED/?'S UTI PER EMS Time Seen by Provider: 06/10/24 06:39 Source: patient and EMS Mode of arrival: EMS Limitations: no limitations History of Present Illness ED Provider: Monica Turcios PA-C HPI narrative: Patient is a 73 year old assigned male at with a history of HTN, HLD, anxiety, depression, and CVA with left sided deficit, presenting to the emergency department today with frequent falls and requesting rehab placement. Patient states that he falls a lot and his son is going on a camping trip - so he had him come here to be placed in a short term rehab. Patient denies any dizziness, lightheadedness, abdominal pain, nausea, vomiting, fever, chills, blurry vision, double vision, loss of vision, chest pain, difficulty breathing, shortness of breath, back pain, night sweats, pain with urination, increased urinary frequency, increased urinary urgency, blood in his urine or stool, syncope or a near syncopal episode, recent trauma or falls, bowel incontinence, bladder incontinence, or any other complaints at this time. Relieving factors: none Exacerbating factors: none Associated symptoms: denies other symptoms Treatments prior to arrival: none Related Data Home Medications ?Medication ?Instructions ?Recorded ?Confirmed doxazosin 4 mg tablet 4 mg PO DAILY 03/29/24 03/29/24 Previous Rx's ?Medication ?Instructions ?Recorded Washable bed pad #10 ea 12/01/21 atorvastatin 40 mg tablet 40 mg PO DAILY #90 tabs 09/06/23 metoprolol tartrate 50 mg tablet 50 mg PO BID #180 tabs 09/06/23 finasteride 5 mg tablet 5 mg PO DAILY 90 days #90 tabs 10/11/23 methenamine hippurate 1 gram tablet 1 g PO daily 90 days #90 tabs 10/11/23 Depend Underwear For Men Alexy #64 ea 01/17/24 (diaper,brief,adult,disposable) cefuroxime axetil 250 mg tablet 250 mg PO BID 5 days #10 tabs 03/31/24 sertraline 50 mg tablet 50 mg PO DAILY #90 tabs 05/17/24 Allergies Allergy/AdvReac Type Severity Reaction Status Date / Time No Known Allergies Allergy Verified 06/10/24 05:18 [No Known Allergies*] Review of Systems 2 Constitutional: Constitutional: Reports no additional constitutional complaints, Denies chills, Denies fever(s) and Denies night sweats Eyes: Eyes: Reports no additional eye complaints, Denies blurry vision, Denies change in vision, Denies diplopia, Denies eye discharge, Denies loss of vision and Denies eye pain ENT: Denies dizziness Cardiovascular: Cardiovascular: Reports no additional cardiovascular complaints, Denies chest pain, Denies lightheadedness, Denies Loss of Consciousness and Denies dyspnea Respiratory: Respiratory: Reports no additional respiratory complaints and Denies dyspnea Gastrointestinal: Gastrointestinal: Reports no additional gastrointestinal complaints, Denies abdominal pain, Denies melena, Denies hematochezia, Denies change in bowel habits and Denies change in stool character Genitourinary: Genitourinary: Reports no additional male genitourinary complaints, Denies hematuria, Denies oliguria, Denies difficulty urinating, Denies dysuria, Denies urinary frequency, Denies urinary hesitancy, Denies urinary incontinence and Denies urinary urgency Musculoskeletal: Musculoskeletal: Reports no additional musculoskeletal complaints, Denies numbness and Denies tingling Neurologic: Denies dizziness, Denies loss of vision, Denies numbness and Denies tingling Comments: chronic left sided weakness Psychiatric: Psychiatric: Reports no additional psychiatric complaints Endocrine: Endocrine: Reports no additional endocrine complaints Hematologic/Lymphatic: Hematologic/Lymphatic: Reports no additional hematologic/lymphatic complaints Allergic/Immunologic: Allergic/Immunologic: Reports no additional allergic/immunologic complaints [facility] Past Medical History Attestation statement: The following information was validated with the patient. Source: old records reviewed and nursing notes reviewed Medical History Thrombocytopenia History of CVA (cerebrovascular accident) History of CVA (cerebrovascular accident) Syncope Hypertension Hearing loss Recurrent UTI Annual physical exam Hyperglycemia BPH (benign prostatic hyperplasia) Hyperlipidemia Abnormal computed tomography angiography (CTA) Dementia Lumbar spinal stenosis CVA (cerebral vascular accident) HTN (hypertension) Follicular lymphoma Surgical History No pertinent past surgical history H/O colonoscopy Family History Family History Father Colon cancer HTN (hypertension) Brother Non-Hodgkin lymphoma HTN (hypertension) Sister HTN (hypertension) Mother HTN (hypertension) TIA (transient ischemic attack) Social History Social History Household Members: Unknown / Unable to assess Household Members Other:: He mentioned 2 dogs and a person, but not answering now. Housing: Unknown / Unable to assess Housing Other:: Unsure if this is correct. Are you a primary intensive care specialist to a significant other at home: No Unable to assess alcohol history related to: Unable to respond Alcohol intake: never Patient Tobacco Use Status: Former Tobacco user Smoked in Last 30 Days: No e-Cigarette/Vaping Use: Never Used Use of substances other than those prescribed or required for medical reasons: No Advance Directives: Yes Advance Directives on File: Yes Advance Directives Date on File: 08/29/22 service: No Current occupational status: retired Cognitive needs: No Hearing needs: Yes Vision needs: No Physical Exam ED Vital Signs: Vital Signs - 24 hr 06/10/24 05:22 06/10/24 05:30 06/10/24 09:45 Temperature 98.1 F 98.1 F 98.1 F Pulse Rate 55 54 61 Respiratory Rate 15 18 16 Blood Pressure 147/85 H 136/81 Pulse Oximetry 99 97 98 Oxygen Delivery Method Room Air Room Air Room Air 06/10/24 09:46 Temperature Pulse Rate 61 Respiratory Rate Blood Pressure 136/81 Pulse Oximetry 98 Oxygen Delivery Method BMI result Body Mass Index 23.0 Const General: cooperative, no acute distress, alert and awake Nutritional Appearance: well nourished Orientation/consciousness: patient oriented x3 Limitations: no limitations HENMT Head: Yes normal to inspection and Yes atraumatic Ears: hearing grossly normal bilaterally and external ears normal General nose exam: Normal external nose present, no nasal discharge noted and no epistaxis Face and sinus: Yes normal facial exam, No abrasion and No laceration Mouth: Normal oral and palatal mucosa present, no drooling and no muffled voice Eyes General: appearance normal, both eyes and all related structures Periorbital: periorbital findings normal Eyelids: Yes eyelids normal Conjunctivae: conjunctivae normal Pupils: Equal, round and reactive pupils present EOM: EOMs intact bilaterally Neck Neck: Yes normal visual inspection, Yes full ROM and Yes no lymphadenopathy Chest Chest palpation & inspection: normal inspection of the chest Resp Effort & Inspection: normal respiratory effort and able to speak in complete sentences GI Inspection: Yes normal to inspection Neuro Other: chronic left sided weakness secondary to CVA General: patient oriented x3 and moves all extremities Cranial nerves: Yes Equal, round and reactive pupils present Cognition (Neuro): normal cognition Extrem General: Yes normal to inspection, Yes full ROM and Yes capillary refill normal Psych Appearance: grossly normal Mental Status: mental status grossly normal Affect: normal affect Attitude: cooperative Thought process: Normal thought process present Thought content: Normal thought content present Insight: Good insight present (Psych) Medical Decision Making Medical Decision Making MDM Narrative: Patient is a 73 year old assigned male at with a history of HTN, HLD, anxiety, depression, and CVA with left sided deficit presenting to the emergency department today with increased weakness. Patient's physical exam was as noted in the physical exam portion of this note. Patient's left arm is weaker on examination however this is chronic for the patient. Patient's blood work was unremarkable. Patient's urine showed an acute UTI. Patient's clinical presentation is most consistent with UTI and not sepsis (@1225). I explained my physical exam findings as well as all test results to the patient. I answered all questions asked by the patient and the patient's son. Patient's son stated that the patient is too weak to return the patient to home and he would like the patient to be placed back in short term rehab. Patient awaiting physical therapy and case management evaluation. Differential Diagnosis Differential Diagnoses: The differential diagnosis associated with the presentation includes Weakness UTI Admission/Observation Consideration of admission/observation: Escalation of care including admission/observation considered Patient would have been admitted to the hospital had his work up had any findings where hospital admission was appropriate and his clinical presentation warranted hospital admission. Lab Data [facility] Lab Attestation statement: I reviewed the patient's lab results. My interpretation of these results are in the MDM Rationale portion of this note. 06/10/24 05:24 06/10/24 05:24 Labs: Lab Results 06/10/24 06/10/24 Range/Units 05:24 11:55 WBC 5.3 (4.8-10.8) X10*3/uL RBC 5.21 (4.60-5.80) X10*6/uL Hgb 15.3 (14.0-18.0) g/dl Hct 44.3 (42.0-52.0) % MCV 85.0 (80.0-98.0) fL MCH 29.4 (27.0-33.0) pg MCHC 34.5 (31.0-36.0) g/dl RDW 14.7 (11.0-16.0) % Plt Count 119 L (160-400) X10*3/uL MPV 10.2 (9.4-12.4) fL Immature Gran % (Auto) 0.4 (0.0-0.4) % Neut % (Auto) 70.6 (45-73) % Lymph % (Auto) 18.4 L (20-40) % Rankin % (Auto) 7.5 (2-11) % Eos % (Auto) 2.3 (0-4) % Baso % (Auto) 0.8 (0-2) % Lymph # (Auto) 1.0 L (1.2-4.9) X10*3/uL Rankin # (Auto) 0.4 (0.1-1.2) X10*3/uL Eos # (Auto) 0.1 (0.0-0.4) X10*3/uL Baso # (Auto) 0.0 (0.0-0.2) X10*3/uL Abs Immat Gran (auto) 0.02 (0.00-0.03) X10*3/uL Absolute Neuts (auto) 3.8 (2.0-8.3) x10*3/uL Absolute Nucleated RBC 0.000 (0.0-0.012) X10*3/uL Nucleated RBC % (auto) 0.0 (0.0-0.2) /100WBC Sodium 144 (135-145) mmol/L Potassium 4.2 (3.3-5.1) mmol/L Chloride 111 H (96-108) mmol/L Carbon Dioxide 25 (22-29) mmol/L Anion Gap 12 (12-20) BUN 22 H (9-16) mg/dL Creatinine 1.32 (0.5-1.4) mg/dL Estim Creat Clear Calc 49.0 Estimated GFR 53 Random Glucose 88 (60-115) mg/dL Calcium 9.3 (8.4-10.2) mg/dL Total Bilirubin 0.8 (0.0-1.0) mg/dL AST 34 (5-37) U/L ALT 48 H (0-40) U/L Alkaline Phosphatase 110 (39-117) U/L Total Protein 7.1 (6.5-8.0) g/dL Albumin 4.3 (3.5-5.0) g/dL Urine Color Yellow Urine Appearance Clear Urine pH 6.0 (5.0-9.0) Ur Specific [place] 1.015 (1.005-1.025) Urine Protein Negative (Neg-Trace) mg/dL Urine Glucose (UA) Negative (Negative) mg/dL Urine Ketones Negative (Negative) mg/dL Urine Blood Negative (Negative) Urine Nitrite Positive H (Negative) Ur Leukocyte Esterase Large (3+) H (Negative) Urine RBC 0-2 (0-2) /HPF Urine WBC >50 H (0-5) /HPF Ur Squamous Epith Cells 3-5 (0-2) /HPF Urine Bacteria 4+ (None Seen) Hyaline Casts 0-2 (0-2) /LPF Independent Interpretation I performed an independent interpretation of an: EKG Interpretation: Vent. Rate: 055 BPM Atrial Rate: 055 BPM P-R Int: 190 ms QRS Dur: 082 ms QT Int: 458 ms P-R-T Axes: 046 013 036 degrees QTc Int: 438 ms Sinus bradycardia When compared with ECG of 10-DEC-2023 12:14, No significant change was found DD/ 0513 Independent Historian Clinical information obtained from an independent historian. History obtained from or confirmed by: EMS (EMS provided additional history and confirmed the history provided by the patient and the patient's son.) and Other (Patient's son provided additional history and confirmed the history provided by EMS.) Prescription Management I considered prescription management with: Antibiotic (patient prescribed an antibiotic for UTI) Discharge Plan Discharge Clinical Impression: Weakness, Acute UTI Patient Disposition: Still a Patient Prescriptions: No Action (DME) Washable bed pad Medium See Rx Instructions .Route .MEDSUPPLY Qty: 10 0RF Rx Instructions: As directed (DME) Depend Underwear For Men Sm-Md Misc See Rx Instructions .MEDSUPPLY Qty: 64 11RF Rx Instructions: As directed-size sm/med sertraline 50 mg tablet 50 mg PO DAILY Qty: 90 1RF doxazosin 4 mg tablet 4 mg PO DAILY cefuroxime axetil 250 mg tablet 250 mg PO BID 5 Days Qty: 10 0RF atorvastatin 40 mg tablet 40 mg PO DAILY Qty: 90 3RF metoprolol tartrate 50 mg tablet 50 mg PO BID Qty: 180 3RF methenamine hippurate 1 gram tablet 1 g PO daily 90 Days Qty: 90 1RF finasteride 5 mg tablet 5 mg PO DAILY 90 Days Qty: 90 1RF Rx Instructions: Take medication alternating calendar months Print Language: Setswana
--- NOTE | 2024-06-10 09:34 | MHC.CM.ED ---
PATIENT LIVES WITH HIS SON. HE USES A [facility] AT [facility] FOR AMBULATION ASSIST. PATIENT REPORTS HAVING [facility] SERVICES BUT S UNABLE TO RECALL AGENCY NAME. [facility] STATES THAT PATIENT IS NOT ACTIVE WITH THEIR SERVICES. PATIENT REQUESTS [facility] FIRST CHOICE. SON/HCP, FLOYD. IS IN AGREEMENT. REFERRAL PLACED. HCP ON FILE AND VERIFIED. P.T. ROGERS IN PROCESS AT TIME OF THIS NOTE. CM FOLLOWING.
[2024-06-10 09:45] VITALS: BP 136/81; PULSE 61; RESP 16; TEMP 36.7; O2SAT 98
[2024-06-10 09:46] VITALS: BP 136/81; PULSE 61; O2SAT 98
--- NOTE | 2024-06-10 10:10 | MHC.CM.ED ---
JESSICA LUNSFORD IS UNABLE OT OFFER. REFERRAL LIST EXPANDED TO INCLUDE [facility].
[2024-06-10 12:01] LABS: Appearance Urine Clear; Color Urine Yellow; Glucose Urine UA Negative (Negative); Leukocyte Esterase Urine Large (3+) (Negative); Nitrite Urine Positive (Negative); Specific Gravity - Urine 1.015 (1.005-1.025); UMIC TRIGGER UACC YES; Urine Blood Negative (Negative); Urine Ketones Negative (Negative); Urine Protein Negative (Neg-Trace)
[2024-06-10 12:05] LABS: Bacteria Urine 4+ (None Seen); Hyaline Casts Urine 0-2 /LPF (0-2); RBC Urine 0-2 /HPF (0-2); UACC Culture Trigger YES; WBC Urine >50 /HPF (0-5)
[2024-06-10] MEDS: cefuroxime axetiL 250 MG TABLET PO ×2 (13:39→21:19)
--- NOTE | 2024-06-10 17:18 | PC.NURSE ---
pt brought from ed to overflow bed 5, pt awake/alert to person/place, rr equal/non labored, denies pain/discomfort at this time, call zhang within reach, vitals will be obtained, will continue to monitor
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
[2024-06-10 18:53] VITALS: BP 131/78; PULSE 66; RESP 18; TEMP 36.7; O2SAT 98
--- NOTE | 2024-06-10 19:22 | PC.NURSE ---
This RN assumed pt care @ 1900. Pt attempting to get oob. Requesting to go see his brother so that he can leave. Pt redirected back into bed. Plan of care ongoing.
--- NOTE | 2024-06-10 21:20 | PC.NURSE ---
Pt medicated per nov. Pt resting in bed, no signs of distress. Plan of care ongoing.
[2024-06-11 06:00] VITALS: BP 146/84; PULSE 73; RESP 18; TEMP 36.3; O2SAT 99
[2024-06-11 09:11] VITALS: BP 150/87; RESP 16; TEMP 36.9; O2SAT 94
--- NOTE | 2024-06-11 09:19 | PHA.MEDREC ---
Addendum entered by Ramona Fernandez [facility] 06/11/24 10:41: Med rec reviewed by [facility]. Addendum entered by Yvonne Vincent 06/11/24 09:25: Daughter says patient is not taken Sertraline 50mg because it make patient go crazy. Original Note: Pharmacy Consult ? Medication Reconciliation Pharmacy has completed the medication reconciliation. Spoke to patient's daughter Martha to confirm med list. Daughter was able to confirm patient most of patients medications, however she didn't know about Doxazosin 4 mg and Methenamine hippurate 1 g. Daughter says there is one that he stopped for a few month then starts again but she didn't know what med that was. left both unconfirmed.
[2024-06-11 09:25] VITALS: BP 142/68
[2024-06-11] MEDS: cefuroxime axetiL 250 MG TABLET PO ×2 (09:28→20:09)
[2024-06-11 14:00] VITALS: BP 164/85; PULSE 69; RESP 18; TEMP 36.9; O2SAT 95
[2024-06-11] MEDS: OLANZapine ODT 10 MG TAB.RAPDIS 20 MG TRANSLINGU (20:09)
[2024-06-11 22:00] VITALS: BP 145/91; PULSE 82; RESP 18; TEMP 36.4; O2SAT 95
[2024-06-12] MEDS: Ziprasidone 20 MG CAPSULE PO (01:28)
--- NOTE | 2024-06-12 05:49 | PC.NURSE ---
At 1900 took over care of this pt. At that time he was sitting in the recliner w/a chair alarm. He was fidgeting a lot, pulling off his hospital gown, playing with the snaps of the curtains, pulling at the chair alarm cord, and repeatedly getting up, having to be redirected multiple times by this RN, day shift RN, and CAFE TEAM MEMBER. Pt was becoming increasingly agitated and verbally inappropiate w/stafff. ED PA was tiger texted for a PRN medication (see MAR for administration). Pt placed in bed where he continued to attempt to get OOB w/o assistance, continuing to be verbally inappropriate w/staff. This RN tiger texted nursing channel supervisor asking for a sitter, channel supervisor was able to provide a sitter for most of this RN's shift. Pt did sleep for a few hours, then woke up and again began being verbally inappropriate w/staff again and attempting to get OOB. ED PA once again tiger texted for a medication for pt. See MAR for administration. Pt currently sleeping. He has been assisted a few times w/the urinal and he falls back to sleep. 1:1 sitter bedside at this time, bed alarm on, camera facing pt's bed.
[2024-06-12 05:59] VITALS: BP 151/94; PULSE 59; O2SAT 97
--- NOTE | 2024-06-12 08:40 | MHC.CM.ED ---
Patient remains in ER overflow. [facility] leveling has been obtained by Paulie. Patient can transfer to facility at 11am. [facility]ING booked. [facility] with chart. Patient, son Devi Galvin RN and Huyen STAFFORD aware. Continue to monitor for d/c needs.
[2024-06-12] MEDS: cefuroxime axetiL 250 MG TABLET PO (08:43)
--- NOTE | 2024-06-12 10:20 | PC.NURSE ---
Plan for transfer via S ambulance to [facility] today around 11am. Pt aware of plan. Sitting upright playing with a fidget toy. Sitter & camera at bedside. Awaiting transfer.
--- NOTE | 2024-06-12 10:24 | MHC.EDTECH ---
full bed change, inc of urine. refreshed and cleaned up, new bed sheets and brief placed w chucks!
--- NOTE | 2024-06-12 10:52 | PC.NURSE ---
[facility] called this RN to notify that new ETA is approximately 11:30am today due to awaiting an available ambulance. Case management: Rhina nguyen.
--- NOTE | 2024-06-12 11:23 | PC.NURSE ---
Pt assisted out of bed to bedside commode. Needs frequent redirecting, but is cooperative at this time. Pt spilled coffee accidentally
[2024-06-12 12:23] VITALS: BP 150/90; PULSE 60; RESP 18; TEMP 36.6; O2SAT 97
== END 2024-06-12 12:24 | disposition still patient (30) ==
PROVIDERS: Emergency Provider Emergency Medicine; PCP Internal Medicine
DX: N39.0 Urinary tract infection, site not specified (principal); R53.1 Weakness; R00.1 Bradycardia, unspecified; R41.82 Altered mental status, unspecified; R26.81 Unsteadiness on feet; Z79.899 Other long term (current) drug therapy; Z91.81 History of falling
CPT/HCPCS: 36415; 80053; 81001; 85025; 87086; 87088; 87186; 93005; 97162; 99285

== ENCOUNTER 2024-08-18 05:46 | Inpatient (IN) | payer MEDICARE, SELFPAY ==
[2024-08-18] VITALS (10 sets, daily range): BP systolic 67–170; BP diastolic 38–98; PULSE 74–115; RESP 13–20; TEMP 36.4–39.7; O2SAT 94–98; BMI 22.4
--- NOTE | ~2024-08-18 | CT_ITS ---
EXAMINATION: CT HEAD WITHOUT CONTRAST CT CERVICAL SPINE WITHOUT CONTRAST CLINICAL INFORMATION: Neck trauma COMPARISON: CT head on 03/28/24 TECHNIQUE: Contiguous axial imaging was performed from the skull base to vertex without intravenous administration of contrast. In addition, helical noncontrast CT imaging was acquired through the cervical spine and source images were reviewed along with axial reconstructions and sagittal and coronal MPRs. DOSE LOWERING TECHNIQUES: This CT examination was performed using dose optimization techniques as appropriate, variously including the following: - Automated exposure control - Adjustment of mA and/or kV according to patient size (this includes techniques or standardized protocols for targeted exams were dose is matched to indication/reason for exam; i.e. extremities or head) - Use of degenerative construction technique DLP: 1056 mGy-cm FINDINGS: HEAD: No intracranial mass, hemorrhage, or midline shift is visualized. The ventricles and sulci are age-appropriate. No extra-axial collections are identified. The paranasal sinuses are well aerated. There are patchy periventricular and subcortical white matter changes, which are nonspecific, but likely represent chronic microangiopathic change in a patient of this age. CERVICAL SPINE: There is no evidence of acute cervical spine fracture. Vertebral bodies remain normal in height, mild loss of intervertebral disc spaces, and alignment is anatomic. No pre- or paravertebral soft tissue abnormality is identified. Limited assessment of the lung apices is unremarkable. CT/CT head/brain wo IV con IMPRESSION: 1. No acute intracranial pathology. 2. No CT evidence of acute cervical spine fracture or traumatic subluxation. Electronically signed by: Eden Daley MD 08/18/2024 09:40 AM [facility]
--- NOTE | ~2024-08-18 | CT_ITS ---
EXAMINATION: CT HEAD WITHOUT CONTRAST CT CERVICAL SPINE WITHOUT CONTRAST CLINICAL INFORMATION: Neck trauma COMPARISON: CT head on 03/28/24 TECHNIQUE: Contiguous axial imaging was performed from the skull base to vertex without intravenous administration of contrast. In addition, helical noncontrast CT imaging was acquired through the cervical spine and source images were reviewed along with axial reconstructions and sagittal and coronal MPRs. DOSE LOWERING TECHNIQUES: This CT examination was performed using dose optimization techniques as appropriate, variously including the following: - Automated exposure control - Adjustment of mA and/or kV according to patient size (this includes techniques or standardized protocols for targeted exams were dose is matched to indication/reason for exam; i.e. extremities or head) - Use of degenerative construction technique DLP: 1056 mGy-cm FINDINGS: HEAD: No intracranial mass, hemorrhage, or midline shift is visualized. The ventricles and sulci are age-appropriate. No extra-axial collections are identified. The paranasal sinuses are well aerated. There are patchy periventricular and subcortical white matter changes, which are nonspecific, but likely represent chronic microangiopathic change in a patient of this age. CERVICAL SPINE: There is no evidence of acute cervical spine fracture. Vertebral bodies remain normal in height, mild loss of intervertebral disc spaces, and alignment is anatomic. No pre- or paravertebral soft tissue abnormality is identified. Limited assessment of the lung apices is unremarkable. CT/CT cervical spine wo IV con IMPRESSION: 1. No acute intracranial pathology. 2. No CT evidence of acute cervical spine fracture or traumatic subluxation. Electronically signed by: Eden Daley MD 08/18/2024 09:40 AM [facility]
--- NOTE | ~2024-08-18 | XR_ITS ---
EXAMINATION: XR CHEST CLINICAL INFORMATION: weakness, found down COMPARISON: March 28, 2024 TECHNIQUE: Frontal view of the chest was obtained. FINDINGS: The cardiomediastinal silhouette is within normal limits and stable. There is no focal lung consolidation or pleural effusions. The bony structures and soft tissues are unremarkable. XR/XR chest 1V IMPRESSION: No acute cardiopulmonary process. Electronically signed by: Augusto Goode MD 08/18/2024 06:33 AM [facility]
--- NOTE | 2024-08-18 05:50 | ECG_ITS ---
Test Reason : ALTERED MENTAL Blood Pressure : / mmHG Vent. Rate : 102 BPM Atrial Rate : 102 BPM P-R Int : 182 ms QRS Dur : 070 ms QT Int : 348 ms P-R-T Axes : 041 -13 040 degrees QTc Int : 453 ms Sinus tachycardia with Premature atrial complexes Otherwise normal ECG When compared with ECG of 10-JUN-2024 05:13, Premature atrial complexes are now Present Vent. rate has increased BY 47 BPM Referred By: Kate Yancey Electronically Signed By:DOUG MARIEE
[2024-08-18] MEDS: 0.9 % Sodium Chloride 1,000 ML 999 ML IV (06:14)
[2024-08-18] MEDS: cefTRIAXone sodium 1 GM VIAL IVPUSH (06:14)
[2024-08-18 06:17] LABS: Venous Blood Gas Refer to POC result
--- NOTE | 2024-08-18 06:17 | ED_ITS ---
HPI - Altered Mental Status General Chief Complaint: Altered Mental Status Stated Complaint: FALL Time Seen by Provider: 08/18/24 05:56 Source: patient and EMS Mode of arrival: EMS Limitations: altered mental status History of Present Illness ED Provider: WALE HPI narrative: 73 yo male with PMH of dementia, HTN, HLD, E. Coli UTI S to ceftriaxone, falls, lymphoma here via EMS with c/o last known baseline possibly yesterday 8pm but it is unclear. He fell at midnight and son put him back in bed. He comes in again more confused, weak. He follows commands but is diffusely weak. EMS thinks he was recently on abx for UTI. I am not sure what abx. The son was a poor historian per EMS MD complaint: altered mental status Onset (ago): unknown Timing confirmed by: family member Severity: moderate Consistency of symptoms: waxing and waning Context: history of similar presentation and recent fever Associated symptoms: denies other symptoms Related Data Home Medications ?Medication ?Instructions ?Recorded ?Confirmed doxazosin 4 mg tablet 4 mg PO DAILY 03/29/24 03/29/24 Previous Rx's ?Medication ?Instructions ?Recorded Washable bed pad #10 ea 12/01/21 atorvastatin 40 mg tablet 40 mg PO DAILY #90 tabs 09/06/23 metoprolol tartrate 50 mg tablet 50 mg PO BID #180 tabs 09/06/23 finasteride 5 mg tablet 5 mg PO DAILY 90 days #90 tabs 10/11/23 methenamine hippurate 1 gram tablet 1 g PO daily 90 days #90 tabs 10/11/23 Depend Underwear For Men Cosmo- #64 ea 01/17/24 (diaper,brief,adult,disposable) Allergies Allergy/AdvReac Type Severity Reaction Status Date / Time No Known Allergies Allergy Verified 08/18/24 06:29 [No Known Allergies*] Review of Systems 2 Review of Systems: ROS unable to be obtained due to altered mental status PMFSH Past Medical History Attestation statement: The following information was validated with the patient. Source: old records reviewed Medical History Thrombocytopenia History of CVA (cerebrovascular accident) History of CVA (cerebrovascular accident) Syncope Hypertension Hearing loss Recurrent UTI Annual physical exam Hyperglycemia BPH (benign prostatic hyperplasia) Hyperlipidemia Abnormal computed tomography angiography (CTA) Dementia Lumbar spinal stenosis CVA (cerebral vascular accident) HTN (hypertension) Follicular lymphoma Surgical History No pertinent past surgical history H/O colonoscopy Family History Family History Father Colon cancer HTN (hypertension) Brother Non-Hodgkin lymphoma HTN (hypertension) Sister HTN (hypertension) Mother HTN (hypertension) TIA (transient ischemic attack) Social History Social History Household Members: Unknown / Unable to assess Household Members Other:: He mentioned 2 dogs and a person, but not answering now. Housing: Unknown / Unable to assess Housing Other:: Unsure if this is correct. Are you a primary clinical care coordinator to a significant other at home: No Unable to assess alcohol history related to: Unknown Alcohol intake: never Patient Tobacco Use Status: Former Tobacco user Smoked in Last 30 Days: No e-Cigarette/Vaping Use: Never Used Use of substances other than those prescribed or required for medical reasons: Unknown Advance Directives: Yes Advance Directives on File: Yes Advance Directives Date on File: 08/29/22 service: No Current occupational status: retired Cognitive needs: No Hearing needs: Yes Vision needs: No Physical Exam ED Vital Signs: Vital Signs - 24 hr 08/18/24 06:18 08/18/24 06:44 Temperature 102.1 F H 102.1 F H Pulse Rate 106 H 99 Respiratory Rate 20 18 Blood Pressure 138/83 142/86 H Pulse Oximetry 94 97 Oxygen Delivery Method Room Air Room Air BMI result Body Mass Index 22.4 Appearance: weak appearing. Oriented to self. No acute distress. Eyes: Pupils equal, round and reactive to light. ENT: Pharynx dry MM, atraumatic Neck: Normal inspection. Neck supple. CVS: Normal heart rate and rhythm. Pulses normal. Respiratory: No respiratory distress. Breath sounds normal. Abdomen: Soft and nontender. Skin: Skin warm and dry. Normal skin color. Normal skin turgor. Extremities: No lower extremity edema. No calf ttp Neuro: Oriented x 1. No motor deficit. No sensory deficit. Course Course Course Narrative: signed out to Dr. Ramos pending workup Medications Administered Discontinued Medications Generic Name Dose Route Start Last Admin Trade Name Freq PRN Reason Stop Dose Admin Ceftriaxone Sodium 1 gm 08/18/24 05:50 08/18/24 06:14 Ceftriaxone Sodium 1 Gm Vial IVPUSH 08/18/24 05:51 1 gm ONCE ONE Administration Sodium Chloride 1,000 mls @ 999 mls/hr 08/18/24 05:50 08/18/24 06:14 Ns IV 08/18/24 06:50 999 mls/hr .Q1H1M ONE Administration Acetaminophen 1,000 mg in 100 mls @ 400 mls/hr 08/18/24 06:24 08/18/24 06:41 Ofirmev IV 08/18/24 06:38 400 mls/hr ONCE ONE Administration Medical Decision Making Medical Decision Making [facility] Narrative: 73 yo male with PMH of HTN, HLD, E. Coli S to ceftriaxone, dementia here with c/o weakness, recurrent falls, he is febrile on exam. History is very limited - at this time CT head/Cspine for trauma, CXR, UA, IV tylenol, labs, cultures and start on empiric ceftriaxone. This seems more infectious and encephalopathy from infection. Differential Diagnosis Differential Diagnoses: The differential diagnosis associated with the presentation includes acute UTI ,pneumonia, infectious encephalopathy Admission/Observation Consideration of admission/observation: Escalation of care including admission/observation considered should admit with UTI and worsening mentation Lab Data [facility] Lab Attestation statement: I reviewed the patient's lab results. 08/18/24 06:08 08/18/24 06:08 Labs: Lab Results 08/18/24 08/18/24 Range/Units 06:08 06:15 WBC 8.1 (4.8-10.8) X10*3/uL RBC 5.64 (4.60-5.80) X10*6/uL Hgb 16.6 (14.0-18.0) g/dl Hct 47.4 (42.0-52.0) % MCV 84.0 (80.0-98.0) fL MCH 29.4 (27.0-33.0) pg MCHC 35.0 (31.0-36.0) g/dl RDW 14.7 (11.0-16.0) % Plt Count 103 L (160-400) X10*3/uL MPV 9.9 (9.4-12.4) fL PT 11.6 (10.9-12.4) SEC INR 1.0 (0.9-1.1) VBG pH 7.37 (7.32-7.43) VBG pCO2 48 mmHg VBG pO2 32 mmHg VBG HCO3 28 H (22-26) mmol/L VBG O2 Saturation 45.0 % VBG Base Excess 2.2 mmol/L Sodium 139 (135-145) mmol/L Potassium 3.7 (3.3-5.1) mmol/L Chloride 105 (96-108) mmol/L Carbon Dioxide 24 (22-29) mmol/L Anion Gap 14 (12-20) BUN 19 H (9-16) mg/dL Creatinine 1.43 H (0.5-1.4) mg/dL Estim Creat Clear Calc 45.3 Estimated GFR 48 Random Glucose 123 H (60-115) mg/dL Lactic Acid 1.3 (0.5-2.0) mmol/L Calcium 9.5 (8.4-10.2) mg/dL Magnesium 1.9 (1.6-2.6) mg/dL Total Bilirubin 1.0 (0.0-1.0) mg/dL Direct Bilirubin 0.4 (0.0-0.5) mg/dL AST 31 (5-37) U/L ALT 40 (0-40) U/L Alkaline Phosphatase 95 (39-117) U/L Ammonia 18 (13-55) umol/L Total Creatine Kinase 135 (38-174) U/L Troponin I High Sens 2.7 (<3.5-35.0) ng/L C-Reactive Protein 0.95 H (< or = 0.50) mg/dL B-Natriuretic Peptide 87 (<100) pg/mL Total Protein 7.4 (6.5-8.0) g/dL Albumin 4.6 (3.5-5.0) g/dL Lipase 42 (8-78) U/L Independent Interpretation I performed an independent interpretation of an: EKG, Plain X-Ray and CT Scan Interpretation: Rate: 102 Rhythm: sinus tach [place]: left Normal P waves. Normal PINO. Normal QRS complex. ST T wave : no RUBEN qTC: 453 prior studies: no acute ischemia The study has been interpreted contemporaneously by me. . Independent Historian Clinical information obtained from an independent historian. History obtained from or confirmed by: EMS External Record Review External record reviewed: Inpatient record and Prior outpatient labs Discharge Plan Discharge Clinical Impression: Encephalopathy acute Fever Qualifiers: Fever type: unspecified Qualified Code(s): R50.9 - Fever, unspecified Patient Disposition: Still a Patient Prescriptions: No Action (DME) Washable bed pad Medium See Rx Instructions .Route .MEDSUPPLY Qty: 10 0RF Rx Instructions: As directed (DME) Depend [facility] See Rx Instructions .MEDSUPPLY Qty: 64 11RF Rx Instructions: As directed-size sm/med doxazosin 4 mg tablet 4 mg PO DAILY atorvastatin 40 mg tablet 40 mg PO DAILY Qty: 90 3RF metoprolol tartrate 50 mg tablet 50 mg PO BID Qty: 180 3RF methenamine hippurate 1 gram tablet 1 g PO daily 90 Days Qty: 90 1RF finasteride 5 mg tablet 5 mg PO DAILY 90 Days Qty: 90 1RF Rx Instructions: Take medication alternating calendar months Print Language: Azeri
[2024-08-18 06:19] LABS: VBG Base Excess 2.2 mmol/L; VBG HCO3 28 mmol/L (22-26); VBG pCO2 48 mmHg; VBG pH 7.37 (7.32-7.43); VBG pO2 32 mmHg
[2024-08-18 06:22] LABS: Ammonia 18 umol/L (13-55)
[2024-08-18 06:27] LABS: Prothrombin Time 11.6 SEC (10.9-12.4)
[2024-08-18 06:29] LABS: Basophils Percent Auto 0.2 % (0-2); Hematocrit 47.4 % (42.0-52.0); Hemoglobin 16.6 g/dl (14.0-18.0); Imm Gran Abs Auto 0.04 X10*3/uL (0.00-0.03); Imm Gran Pct Auto 0.5 % (0.0-0.4); Lymphocytes Absolute Auto 0.1 X10*3/uL (1.2-4.9); Lymphocytes Percent Auto 1.6 % (20-40); MANUAL DIFF FLAG SCAN; Mean Corpuscular Hemoglobin 29.4 pg (27.0-33.0); Mean Platelet Volume 9.9 fL (9.4-12.4); Monocytes Absolute Auto 0.2 X10*3/uL (0.1-1.2); Neutrophils Absolute Auto 7.8 x10*3/uL (2.0-8.3); Neutrophils Percent Auto 95.7 % (45-73); Platelet Count 103 X10*3/uL (160-400); Red Blood Count 5.64 X10*6/uL (4.60-5.80); Red Cell Distribution Width 14.7 % (11.0-16.0); SCAN SMEAR FLAG 1; White Blood Count 8.1 X10*3/uL (4.8-10.8)
[2024-08-18 06:30] LABS: Lactic Acid 1.3 mmol/L (0.5-2.0)
--- NOTE | 2024-08-18 06:30 | PC.NURSE ---
per BIB EMS from home, pt found down by son around midnight, helped back to bed but reports ams, recent UTI, unknon abx treatment, does not follow commands. Per EMS-son not good historian. pt unable to follow commands unknown last well time. MD orders for labs, abx and fluids. labs drawn and sent, meds administered. Rectal temp taken and MD aware of 102.1 rectal temp. Will order IV Tylenol. EKG complete. Pt in CT at this time. Plan of care ongoing.
[2024-08-18 06:33] LABS: Alanine Aminotransferase 40 U/L (0-40); Albumin Level 4.6 g/dL (3.5-5.0); Alkaline Phosphatase 95 U/L (39-117); Anion Gap 14 (12-20); Aspartate Amino Transferase 31 U/L (5-37); Bilirubin Direct 0.4 mg/dL (0.0-0.5); Blood Urea Nitrogen 19 mg/dL (9-16); C Reactive Protein 0.95 mg/dL (< or = 0.50); Calcium 9.5 mg/dL (8.4-10.2); Carbon Dioxide 24 mmol/L (22-29); Chloride 105 mmol/L (96-108); Creatinine Clr Calc Pharmacy 45.3; Estimated Glomerular Filt Rate 48; Glucose Random 123 mg/dL (60-115); Lipase 42 U/L (8-78); Magnesium 1.9 mg/dL (1.6-2.6); Potassium 3.7 mmol/L (3.3-5.1); Sodium 139 mmol/L (135-145); Total Protein 7.4 g/dL (6.5-8.0)
[2024-08-18 06:35] LABS: Troponin-I High Sensitivity 2.7 ng/L (<3.5-35.0)
[2024-08-18] MEDS: Acetaminophen 1,000 MG/100 ML PIGGYBACK 400 MG IV ×3 (06:41→20:02)
[2024-08-18 06:47] LABS: B Type Natriuretic Peptide 87 pg/mL (<100)
[2024-08-18 06:57] LABS: Influenza A PCR NEGATIVE (Negative); Influenza B PCR NEGATIVE (Negative); Resp Syncy Virus RNA Qual PCR NEGATIVE (Negative); SARS COV2 PCR INHOUSE NEGATIVE (Negative)
[2024-08-18 07:10] LABS: Procalcitonin 0.22 ng/mL
[2024-08-18 07:23] LABS: SLIDE REVIEW VERIFIED
[2024-08-18 08:38] LABS: Appearance Urine Clear; Color Urine Yellow; Glucose Urine UA Negative (Negative); Leukocyte Esterase Urine Small (1+) (Negative); Nitrite Urine Positive (Negative); PH 5.5 (5.0-9.0); Specific Gravity - Urine 1.015 (1.005-1.025); UMIC TRIGGER UACC YES; Urine Blood Negative (Negative); Urine Ketones Negative (Negative); Urine Protein Negative (Neg-Trace)
[2024-08-18 08:40] LABS: Bacteria Urine 3+ (None Seen); Hyaline Casts Urine 0-2 /LPF (0-2); RBC Urine 0-2 /HPF (0-2); Squamous Epithelial Cell Urine 0-2 /HPF (0-2); UACC Culture Trigger YES; WBC Urine 21-50 /HPF (0-5)
--- NOTE | 2024-08-18 10:58 | P.HPHOSP_ITS ---
History of Present Illness Date of Service: 08/18/24 Attending physician on admission: Jose Varghese Chief Complaint: fall, confusion, fever This is a 73-year-old male with history of dementia, thrombocytopenia, follicular lymphoma, prostate CA was brought to the emergency department after a fall. Patient had fall overnight and was reportedly put back to bed by his son. Is brought in this morning for persistent weakness and confusion. Patient knows his name and that he is at [facility] and he is here for urinary tract infection but is unable to provide any history regarding his medical history or his fall. In the emergency department imaging studies were negative for any trauma. Urinalysis was consistent with urinary tract infection, he was noted to be febrile and started on antibiotics. It appears he may have been diagnosed with UTI as outpatient, patient can't recall what antibiotics he was prescribed but upon review of medication claim history he was prescribed a 7 day course of Bactrim on August 17, unclear if patient took any doses. Due to UTI with encephalopathy the plan was made to admit him to the hospital for further management. Patient denies any abdominal pain, nausea, vomiting, dysuria, he does report chills. Review of Systems 2 Review of Systems: Yes all other systems are reviewed and are negative Constitutional: Constitutional: Reports chills Cardiovascular: Cardiovascular: Denies chest pain Neurologic: Reports confusion Psychiatric: Psychiatric: Reports confusion [facility] Medical History Thrombocytopenia History of CVA (cerebrovascular accident) History of CVA (cerebrovascular accident) Syncope Hypertension Hearing loss Recurrent UTI Annual physical exam Hyperglycemia BPH (benign prostatic hyperplasia) Hyperlipidemia Abnormal computed tomography angiography (CTA) Dementia Lumbar spinal stenosis CVA (cerebral vascular accident) HTN (hypertension) Follicular lymphoma Family History Father Colon cancer HTN (hypertension) Brother Non-Hodgkin lymphoma HTN (hypertension) Sister HTN (hypertension) Mother HTN (hypertension) TIA (transient ischemic attack) Surgical History No pertinent past surgical history H/O colonoscopy Social History Household Members: Unknown / Unable to assess Household Members Other:: He mentioned 2 dogs and a person, but not answering now. Housing: Unknown / Unable to assess Housing Other:: Unsure if this is correct. Are you a primary progressive care unit registered nurse to a significant other at home: No Unable to assess alcohol history related to: Unknown Alcohol intake: never Patient Tobacco Use Status: Former Tobacco user Smoked in Last 30 Days: No e-Cigarette/Vaping Use: Never Used Use of substances other than those prescribed or required for medical reasons: Unknown Advance Directives: Yes Advance Directives on File: Yes Advance Directives Date on File: 08/29/22 service: No Current occupational status: retired Cognitive needs: No Hearing needs: Yes Vision needs: No Meds Allergies Allergy/AdvReac Type Severity Reaction Status Date / Time No Known Allergies Allergy Verified 08/18/24 06:29 [No Known Allergies*] Active Medications: Current Medications Acetaminophen (Acetaminophen 325 Mg Tablet) 650 mg PO Q6H PRN PRN Reason: Pain, Mild (Pain Scale 1-3), fever or headache Calcium Carbonate (Calcium Carbonate 750 Mg Tab.Chew) 750 mg PO Q4H PRN PRN Reason: Heartburn Melatonin (Melatonin 3 Mg Tablet) 6 mg PO BEDTIME PRN PRN Reason: Insomnia Sodium Chloride (0.9 % Sodium Chloride Flush 3 Ml Syringe) [facility] Medications ?Medication ?Instructions ?Recorded ?Confirmed ?Last Taken ?Type lidocaine 4 % topical patch 1 patch topical Q12H 08/18/24 08/18/24 Unknown History loperamide 2 mg tablet (Imodium 2 mg PO QID PRN Loose Stool 08/18/24 08/18/24 Unknown History A-D) psyllium husk 0.52 gram capsule 0.52 g PO DAILY 08/18/24 08/18/24 Unknown History sulfamethoxazole 800 1 tab PO BID 08/18/24 08/18/24 08/17/24 History mg-trimethoprim 160 mg tablet Physical Exam 2 Vital Signs and Narrative: Vital Signs: Last Vital Signs Temp 102.1 F H 08/18/24 06:44 Pulse 99 08/18/24 06:44 Resp 18 08/18/24 06:44 BP 142/86 H 08/18/24 06:44 Pulse Ox 97 08/18/24 06:44 O2 Del Method Room Air 08/18/24 06:44 BMI result Body Mass Index 22.4 Const: General: alert, awake and confusion Nutritional Appearance: average body habitus Orientation/consciousness: oriented to person, oriented to place and confusion Resp: Effort & Inspection: normal respiratory effort, able to speak in complete sentences, no respiratory distress and no use of accessory muscles A uscultation: clear to auscultation bilaterally Cardio: Rate: regular rate GI: Inspection: No distended Palpation (GI): Soft to palpation and nontender Neuro: Other: grossly nonfocal General: oriented to person, oriented to place, moves all extremities and confusion Extrem: General: Yes no pedal edema Results Labs 08/18/24 06:08 08/18/24 06:08 Labs: Laboratory Results - last 24 hr 08/18/24 08/18/24 08/18/24 06:08 06:15 08:32 MCV 84.0 MCH 29.4 MCHC 35.0 RDW 14.7 Plt Count 103 L MPV 9.9 Immature Gran % (Auto) 0.5 H Neut % (Auto) 95.7 H Lymph % (Auto) 1.6 L Kane % (Auto) 2.0 Eos % (Auto) 0.0 Baso % (Auto) 0.2 Lymph # (Auto) 0.1 L Kane # (Auto) 0.2 Eos # (Auto) 0.0 Baso # (Auto) 0.0 Abs Immat Gran (auto) 0.04 H Absolute Neuts (auto) 7.8 Absolute Nucleated RBC 0.000 Nucleated RBC % (auto) 0.0 Smear Tech's Comments VERIFIED PT 11.6 INR 1.0 VBG pH 7.37 VBG pCO2 48 VBG pO2 32 VBG HCO3 28 H VBG O2 Saturation 45.0 VBG Base Excess 2.2 Anion Gap 14 Estim Creat Clear Calc 45.3 Estimated GFR 48 Random Glucose 123 H Lactic Acid 1.3 Calcium 9.5 Magnesium 1.9 Total Bilirubin 1.0 Direct Bilirubin 0.4 AST 31 ALT 40 Alkaline Phosphatase 95 Ammonia 18 Total Creatine Kinase 135 Troponin I High Sens 2.7 C-Reactive Protein 0.95 H B-Natriuretic Peptide 87 Total Protein 7.4 Albumin 4.6 Lipase 42 Procalcitonin 0.22 Urine Color Yellow Urine Appearance Clear Urine pH 5.5 Ur Specific [place] 1.015 Urine Protein Negative Urine Glucose (UA) Negative Urine Ketones Negative Urine Blood Negative Urine Nitrite Positive H Ur Leukocyte Esterase Small (1+) H Urine RBC 0-2 Urine WBC 21-50 H Ur Squamous Epith Cells 0-2 Urine Bacteria 3+ Hyaline Casts 0-2 Influenza Type A (PCR) NEGATIVE Influenza Type B (PCR) NEGATIVE RSV RNA Qual (PCR) NEGATIVE SARS-CoV-2 RNA (RT-PCR) NEGATIVE Imaging Radiologist's Impressions: Impressions Cervical Spine CT 08/18/24 05:50 IMPRESSION: 1. No acute intracranial pathology. 2. No CT evidence of acute cervical spine fracture or traumatic subluxation. Electronically signed by: Eden Daley MD 08/18/2024 09:40 AM EST RP Chest X-Ray 08/18/24 05:50 IMPRESSION: No acute cardiopulmonary process. Electronically signed by: Augusto Goode MD 08/18/2024 06:33 AM EST RP Head CT 08/18/24 05:51 IMPRESSION: 1. No acute intracranial pathology. 2. No CT evidence of acute cervical spine fracture or traumatic subluxation. Electronically signed by: Eden Daley MD 08/18/2024 09:40 AM EST RP Assessment and Plan (1) Encephalopathy acute: Status: Acute (2) Acute UTI: Status: Acute Plan This is a 73-year-old male with history of dementia, hypertension, hyperlipidemia, history of UTIs who was brought to the emergency department after fall overnight with generalized weakness and confusion found to have UTI Sepsis secondary to UTI Met sepsis criteria with fever and tachycardia. No leukocytosis. Lactic acid normal, no severe features Creatinine slightly above baseline but does not meet criteria for HALEY, thrombocytopenia is chronic and not related to sepsis continue IV ceftriaxone urine culture, blood cultures pending toxic metabolic encephalopathy on a background of dementia due to UTI brain CT negative, no focal neuro deficits hld hold statin bph resume bph if bp remains stable evt ppx - lovenox code status - DNR/DNI as per MOLST Form in system Patient will likely require 2 midnight stay in the hospital for management of UTI and sepsis for IV antibiotics and close monitoring to prevent decompensation Quality Stroke Does the patient have a stroke diagnosis?: No VTE Prior VTE?: No VTE Risk Level:: Medical - moderate - high VTE Device Contraindication: N/A - Device Ordered VTE Drug Contraindication: N/A - Med Ordered
--- NOTE | 2024-08-18 11:48 | PHA.MEDREC ---
Addendum entered by Delaney Laughlin RPh 08/18/24 13:37: med rec reviewed by [facility] Original Note: Pharmacy Consult ? Medication Reconciliation Pharmacy has completed the medication reconciliation. Called son and he confirmed his dad is going to [facility] 4 times a week and stated they stopped his Methenamine 1gm and Metoprolol 50mg tabs 2 days ago but could not remember why. He was also able to confirm he is taking Atorvastatin 40mg tabs once daily, Finasteride 5mg tab once daily and he confirmed he started the Sulfamethoxazole-Trimethoprim 800-160mg tab once BID and stated he took the, yesterday along with his other medications. I called [facility] and they were able to send a med list over for us to verify and they also confirmed they discontinued the Metoprolol 50mg tab Saturday due to the patients pressure being low. They also stated they stopped the Methenamine 1gm tab because the patient got switched to Sulfamethoxazole-Trimethoprim 800-160mg due to him having a UTI.
--- NOTE | 2024-08-18 12:36 | PC.NURSE ---
patient 2x episodes of nausea/vomtiing bile onto self. small amount. made aware
[2024-08-18] MEDS: ondansetron HCL 4 MG/2 ML VIAL IVPUSH (12:39)
[2024-08-18] MEDS: 0.9 % Sodium Chloride 500 ML 999 ML IV (14:09)
[2024-08-18] MEDS: Lactated Ringers 1,000 ML 100 ML IVCONT (15:00)
--- NOTE | 2024-08-18 15:51 | PM.EVENT ---
Event Note Date of Service: 08/18/24 Event Note: nurse called that pt bp down to high 60s. bolus ordred but BP back up over 100 systolic before bolus started. suspect low blood pressure not accurate. not due to severe sepsis/septic shock Time Spent With Patient Time: Total time managing care of this patient today ____ minutes.
[2024-08-18] MEDS: Ketorolac Tromethamine 15 MG/ML VIAL IVPUSH (19:27)
--- NOTE | 2024-08-18 20:05 | PC.NURSE ---
PRN Tylenol given per MD Mendoza request
[2024-08-19] VITALS (7 sets, daily range): BP systolic 131–172; BP diastolic 82–97; PULSE 75–106; RESP 18–20; TEMP 36.4–37.6; O2SAT 95–100
[2024-08-19] MEDS: Lactated Ringers 1,000 ML 100 ML IVCONT ×3 (02:12→21:42)
[2024-08-19] MEDS: cefTRIAXone sodium 1 GM VIAL IVPUSH (05:09)
[2024-08-19 08:01] LABS: Basophils Percent Auto 0.5 % (0-2); Hematocrit 43.3 % (42.0-52.0); Hemoglobin 14.7 g/dl (14.0-18.0); Imm Gran Abs Auto 0.01 X10*3/uL (0.00-0.03); Imm Gran Pct Auto 0.2 % (0.0-0.4); Lymphocytes Absolute Auto 0.1 X10*3/uL (1.2-4.9); Lymphocytes Percent Auto 2.3 % (20-40); MANUAL DIFF FLAG SCAN; Mean Corpuscular HGB Conc 33.9 g/dl (31.0-36.0); Mean Corpuscular Hemoglobin 29.4 pg (27.0-33.0); Mean Corpuscular Volume 86.6 fL (80.0-98.0); Mean Platelet Volume 10.8 fL (9.4-12.4); Monocytes Absolute Auto 0.1 X10*3/uL (0.1-1.2); Monocytes Percent Auto 2.7 % (2-11); Neutrophils Absolute Auto 4.2 x10*3/uL (2.0-8.3); Neutrophils Percent Auto 94.3 % (45-73); SCAN SMEAR FLAG 1; White Blood Count 4.4 X10*3/uL (4.8-10.8)
[2024-08-19 08:02] LABS: Platelet Count 83 X10*3/uL (160-400)
[2024-08-19 08:17] LABS: Anion Gap 17 (12-20); Blood Urea Nitrogen 17 mg/dL (9-16); Calcium 8.6 mg/dL (8.4-10.2); Carbon Dioxide 20 mmol/L (22-29); Chloride 110 mmol/L (96-108); Creatinine Clr Calc Pharmacy 49.9; Estimated Glomerular Filt Rate 54; Glucose Random 87 mg/dL (60-115); Potassium 3.7 mmol/L (3.3-5.1); Sodium 143 mmol/L (135-145)
[2024-08-19 08:50] LABS: SLIDE REVIEW VERIFIED
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
--- NOTE | 2024-08-19 11:54 | MHC.SL.SWA ---
Speech Pathologist Impression: Mild to moderate oral phase dysphagia secondary to weakness, confusion and impulsivity. Recc 1:1 supervision/assist to reduce risk for aspiration with regular diet & thin liquids Risk of Aspiration Due to: Neurological Condition Dysphasia Diet Status: Regular diet with thin liquids. Cue pt to slow pace, provide verbal/tactile cueing if anterior loss of food evident (was occurring on L side of mouth during eval). Liquid Consistency and Strategies for Safe Swallow: Liquid Intake Recommendation: Thin Liquid Intake Strategies: Small Sips Double Swallow Solid Food Consistency: Dietary Recommendations: Regular Additional Modifications to Solid Foods: Avoid difficult to chew solids Oral Medication Intake: Whole with Liquid Please contact the pharmacy regarding appropriate crushable or liquid drug formulations that are available whenever modified delivery is recommended. Compensatory Strategies and Precautions to be Taken for Safe Swallow: Sitting Upright (90 deg) Liquids from Straw Small Bites and Sips Alternate Liquids/Solids Rate of Ingestion Change Supervision While Eating and Drinking for Safe Swallow: Total Supervision (1:1) Foods to Avoid: Large uncut pieces of meat, difficult to chew solids. Swallowing Recommended Treatments: Compens. Strategy Educat. Recommendation for Speech: Inpatient Speech Therapy Comment: Mild to moderate oral phase dysphagia secondary to weakness, confusion and impulsivity. Recc 1:1 supervision/assist to reduce risk for aspiration with regular diet & thin liquids Frequency/Duration: Date Range for Service Req: Timeline to reassess: Pitch Worker Clinican/Clinical Fellow: No Supervisory Statement: I have reviewed and agree with the student/clinical fellow's documentation: N/A Speech Language Pathologist: Kassidy Martins M.S., CCC-PROCESS PLANNER
[2024-08-19] MEDS: 0.9 % Sodium Chloride Flush 3 ML SYRINGE IVFLUSH (16:19)
--- NOTE | 2024-08-19 16:33 | HO.PM.IMPN ---
Subjective Subjective Date of Service: 08/19/24 Interval History: No acute issues overnight. Confused but easily reoriented Review of Systems Denies chest pain Denies shortness of breath Denies nausea vomiting diarrhea Denies fever chills Physical Exam Vital Signs: Vital Signs: Last Vital Signs Temp 98.7 F 08/19/24 15:25 Pulse 106 H 08/19/24 15:25 Resp 18 08/19/24 15:25 BP 168/88 H 08/19/24 15:25 Pulse Ox 96 08/19/24 15:25 O2 Del Method Room Air 08/19/24 15:25 BMI result Body Mass Index 22.4 Const: Other: Awake alert confused no acute distress Resp: Other: Clear to auscultation bilaterally no rales rhonchi or wheezes Cardio: Other: No S4; positive S1-S2; no S3 murmurs rubs or gallops GI: Other: Soft nontender nondistended normoactive bowel sounds Extrem: Other: No edema bilaterally Objective Data Active Medications Calcium Carbonate (Calcium Carbonate 750 Mg Tab.Chew) 750 mg PO Q4H PRN PRN Reason: Heartburn Ceftriaxone Sodium (Ceftriaxone Sodium 1 Gm Vial) 1 gm IVPUSH Q24H [facility] Last Admin: 08/19/24 05:09 Dose: 1 gm Documented By: SANDRA Lactated Ringer's (Lr) 1,000 mls @ 100 mls/hr IVCONT .Q10H [facility] Last Admin: 08/19/24 12:19 Dose: 100 mls/hr Documented By: WESLEY Acetaminophen (Ofirmev) 1,000 mg in 100 mls @ 400 mls/hr IV Q6H PRN PRN Reason: fever Last Infusion: 08/18/24 22:00 Dose: Infused Documented By: SANDRA Melatonin (Melatonin 3 Mg Tablet) 6 mg PO BEDTIME PRN PRN Reason: Insomnia Ondansetron HCl (Ondansetron Hcl 4 Mg/2 Ml Vial) 4 mg IVPUSH Q8H PRN PRN Reason: Nausea and Vomiting Last Admin: 08/18/24 12:39 Dose: 4 mg Documented By: NING Sodium Chloride (0.9 % Sodium Chloride Flush 3 Ml Syringe) 3 ml IVFLUSH QSHIFT [facility] Last Admin: 08/19/24 16:19 Dose: 3 ml Documented By: PÉREZ Labs 08/19/24 06:32 08/19/24 06:32 Labs: Laboratory Results - last 24 hr 08/19/24 06:32 MCV 86.6 MCH 29.4 MCHC 33.9 RDW 15.0 Plt Count 83 L MPV 10.8 Immature Gran % (Auto) 0.2 Neut % (Auto) 94.3 H Lymph % (Auto) 2.3 L [place] % (Auto) 2.7 Eos % (Auto) 0.0 Baso % (Auto) 0.5 Lymph # (Auto) 0.1 L [place] # (Auto) 0.1 Eos # (Auto) 0.0 Baso # (Auto) 0.0 Abs Immat Gran (auto) 0.01 Absolute Neuts (auto) 4.2 Absolute Nucleated RBC 0.000 Nucleated RBC % (auto) 0.0 Smear Tech's Comments VERIFIED Anion Gap 17 Estim Creat Clear Calc 49.9 Estimated GFR 54 Random Glucose 87 Calcium 8.6 D Microbiology Microbiology Results: Microbiology 08/18/24 Unknown Urine Culture - Preliminary Urine Catheterized - Straight Catheter Gram negative ant 08/18/24 06:08 Blood Culture - Preliminary Blood - Venous No growth after 24 hours. 08/18/24 06:15 Blood Culture - Preliminary Blood - Venous No growth after 24 hours. Assessment and Plan (1) Acute UTI: Status: Acute (2) Encephalopathy acute: Status: Acute Plan This is a 73-year-old male with history of dementia, hypertension, hyperlipidemia, history of UTIs who was brought to the emergency department after fall overnight with generalized weakness and confusion found to have UTI 1.Sepsis secondary to UTI (sepsis resolved) -IV ceftriaxone(2) -urine culture, blood cultures pending 2.Toxic metabolic encephalopathy on a background of dementia -aggressive treatment of 1. Lovenox DNR/DNI Quality Stroke Does the patient have a stroke diagnosis?: No VTE Prior VTE?: No VTE Risk Level:: Medical - moderate - high VTE Device Contraindication: N/A - Device Ordered VTE Drug Contraindication: N/A - Med Ordered
[2024-08-20] VITALS (7 sets, daily range): BP systolic 136–164; BP diastolic 80–100; PULSE 82–101; RESP 15–18; TEMP 36.8–37.4; O2SAT 96–99
[2024-08-20] MEDS: Lactated Ringers 1,000 ML 100 ML IVCONT (06:11)
[2024-08-20] MEDS: cefTRIAXone sodium 1 GM VIAL IVPUSH (06:11)
--- NOTE | 2024-08-20 14:30 | HO.PM.IMPN ---
Subjective Subjective Date of Service: 08/20/24 Interval History: Remains confused but pleasant. No acute issues overnight Review of Systems Denies chest pain Denies shortness of breath Denies nausea vomiting diarrhea Denies fever chills Physical Exam Vital Signs: Vital Signs: Last Vital Signs Temp 98.8 F 08/20/24 11:17 Pulse 91 08/20/24 11:17 Resp 18 08/20/24 11:17 BP 164/96 H 08/20/24 11:17 Pulse Ox 97 08/20/24 11:17 O2 Del Method Room Air 08/20/24 11:17 BMI result Body Mass Index 22.4 Const: Other: Awake alert confused no acute distress Resp: Other: Clear to auscultation bilaterally no rales rhonchi or wheezes Cardio: Other: No S4; positive S1-S2; no S3 murmurs rubs or gallops GI: Other: Soft nontender nondistended normoactive bowel sounds Extrem: Other: No edema bilaterally Objective Data Active Medications Calcium Carbonate (Calcium Carbonate 750 Mg Tab.Chew) 750 mg PO Q4H PRN PRN Reason: Heartburn Ceftriaxone Sodium (Ceftriaxone Sodium 1 Gm Vial) 1 gm IVPUSH Q24H [facility] Last Admin: 08/20/24 06:11 Dose: 1 gm Documented By: PÉREZ Acetaminophen (Ofirmev) 1,000 mg in 100 mls @ 400 mls/hr IV Q6H PRN PRN Reason: fever Last Infusion: 08/18/24 22:00 Dose: Infused Documented By: SANDRA Melatonin (Melatonin 3 Mg Tablet) 6 mg PO BEDTIME PRN PRN Reason: Insomnia Ondansetron HCl (Ondansetron Hcl 4 Mg/2 Ml Vial) 4 mg IVPUSH Q8H PRN PRN Reason: Nausea and Vomiting Last Admin: 08/18/24 12:39 Dose: 4 mg Documented By: NING Sodium Chloride (0.9 % Sodium Chloride Flush 3 Ml Syringe) 3 ml IVFLUSH QSHIFT [facility] Last Admin: 08/20/24 10:29 Dose: Not Given Documented By: MIGUELINA Non-Admin Reason: IV Running Labs 08/19/24 06:32 08/19/24 06:32 Microbiology Microbiology Results: Microbiology 08/18/24 06:08 Blood Culture - Preliminary Blood - Venous No growth after 48 hours. 08/18/24 06:15 Blood Culture - Preliminary Blood - Venous No growth after 48 hours. 08/18/24 Unknown Urine Culture - Final Urine Catheterized - Straight Catheter Escherichia coli Assessment and Plan (1) Acute UTI: Status: Acute Plan This is a 73-year-old male with history of dementia, hypertension, hyperlipidemia, history of UTIs who was brought to the emergency department after fall overnight with generalized weakness and confusion found to have UTI 1.Sepsis secondary to UTI (sepsis resolved) -IV ceftriaxone(3) -urine culture EColi; blood cultures negative times 48 hours 2.Toxic metabolic encephalopathy on a background of dementia -aggressive treatment of 1. Lovenox DNR/DNI Quality Stroke Does the patient have a stroke diagnosis?: No VTE Prior VTE?: No VTE Risk Level:: Medical - moderate - high VTE Device Contraindication: N/A - Device Ordered VTE Drug Contraindication: N/A - Med Ordered
[2024-08-20] MEDS: Acetaminophen 1,000 MG/100 ML PIGGYBACK 400 MG IV (15:53)
[2024-08-20] MEDS: 0.9 % Sodium Chloride Flush 3 ML SYRINGE IVFLUSH (15:53)
[2024-08-21] VITALS (7 sets, daily range): BP systolic 97–166; BP diastolic 80–98; PULSE 84–122; RESP 16–20; TEMP 36.4–37.2; O2SAT 95–99
[2024-08-21] MEDS: cefTRIAXone sodium 1 GM VIAL IVPUSH (06:27)
--- NOTE | 2024-08-21 14:21 | HO.PM.IMPN ---
Subjective Subjective Date of Service: 08/21/24 Interval History: Somewhat clear however seems weak in bed Review of Systems Denies chest pain Denies shortness of breath Denies nausea vomiting diarrhea Denies fever chills Physical Exam Vital Signs: Vital Signs: Last Vital Signs Temp 97.8 F 08/21/24 11:12 Pulse 117 H 08/21/24 11:12 Resp 16 08/21/24 11:12 BP 97/89 08/21/24 11:12 Pulse Ox 97 08/21/24 11:12 O2 Del Method Room Air 08/21/24 11:12 BMI result Body Mass Index 22.4 Const: Other: Awake alert confused no acute distress Resp: Other: Clear to auscultation bilaterally no rales rhonchi or wheezes Cardio: Other: No S4; positive S1-S2; no S3 murmurs rubs or gallops GI: Other: Soft nontender nondistended normoactive bowel sounds Extrem: Other: No edema bilaterally Objective Data Active Medications Calcium Carbonate (Calcium Carbonate 750 Mg Tab.Chew) 750 mg PO Q4H PRN PRN Reason: Heartburn Ceftriaxone Sodium (Ceftriaxone Sodium 1 Gm Vial) 1 gm IVPUSH Q24H [facility] Last Admin: 08/21/24 06:27 Dose: 1 gm Documented By: ANGELINA Acetaminophen (Ofirmev) 1,000 mg in 100 mls @ 400 mls/hr IV Q6H PRN PRN Reason: fever Last Infusion: 08/20/24 16:50 Dose: Infused Documented By: MIGUELINA Melatonin (Melatonin 3 Mg Tablet) 6 mg PO BEDTIME PRN PRN Reason: Insomnia Ondansetron HCl (Ondansetron Hcl 4 Mg/2 Ml Vial) 4 mg IVPUSH Q8H PRN PRN Reason: Nausea and Vomiting Last Admin: 08/18/24 12:39 Dose: 4 mg Documented By: NING Sodium Chloride (0.9 % Sodium Chloride Flush 3 Ml Syringe) 3 ml IVFLUSH QSHIFT [facility] Last Admin: 08/21/24 00:00 Dose: 3 ml Documented By: ANGELINA Labs 08/19/24 06:32 08/19/24 06:32 Assessment and Plan (1) Acute UTI: Status: Acute Plan This is a 73-year-old male with history of dementia, hypertension, hyperlipidemia, history of UTIs who was brought to the emergency department after fall overnight with generalized weakness and confusion found to have UTI 1.Sepsis secondary to UTI (sepsis resolved) -IV ceftriaxone(4) -urine culture EColi; blood cultures negative times 48 hours -physical therapy consult 2.Toxic metabolic encephalopathy on a background of dementia -aggressive treatment of 1. Lovenox DNR/DNI Quality Stroke Does the patient have a stroke diagnosis?: No VTE Prior VTE?: No VTE Risk Level:: Medical - moderate - high VTE Device Contraindication: N/A - Device Ordered VTE Drug Contraindication: N/A - Med Ordered
--- NOTE | 2024-08-21 15:25 | MHC.SPEECHCO ---
Per RN, no difficulties reported with regular diet and thin liquids. No difficulties in EMR. GHOST WRITER follow-up deferred until Saturday.
--- NOTE | 2024-08-21 16:13 | MHC.CM.PN ---
EMR reviewed and per MD rounds, pt is not medically cleared for discharge due to management of UTI.
[2024-08-21] MEDS: 0.9 % Sodium Chloride Flush 3 ML SYRINGE IVFLUSH ×2 (17:44)
[2024-08-22] VITALS (7 sets, daily range): BP systolic 134–160; BP diastolic 82–100; PULSE 77–100; RESP 16–18; TEMP 36.1–36.7; O2SAT 94–99
[2024-08-22] MEDS: 0.9 % Sodium Chloride Flush 3 ML SYRINGE IVFLUSH ×4 (05:59→23:37)
[2024-08-22] MEDS: cefTRIAXone sodium 1 GM VIAL IVPUSH (06:06)
[2024-08-22 07:21] LABS: MANUAL DIFF FLAG NO
[2024-08-22 07:39] LABS: Basophils Percent Auto 0.5 % (0-2); Eosinophils Absolute Auto 0.1 X10*3/uL (0.0-0.4); Hematocrit 41.7 % (42.0-52.0); Hemoglobin 14.4 g/dl (14.0-18.0); Imm Gran Abs Auto 0.01 X10*3/uL (0.00-0.03); Imm Gran Pct Auto 0.2 % (0.0-0.4); Lymphocytes Percent Auto 23.7 % (20-40); Mean Corpuscular HGB Conc 34.5 g/dl (31.0-36.0); Mean Corpuscular Hemoglobin 28.9 pg (27.0-33.0); Mean Corpuscular Volume 83.6 fL (80.0-98.0); Mean Platelet Volume 10.3 fL (9.4-12.4); Monocytes Absolute Auto 0.5 X10*3/uL (0.1-1.2); Monocytes Percent Auto 12.4 % (2-11); Neutrophils Absolute Auto 2.5 x10*3/uL (2.0-8.3); Neutrophils Percent Auto 61.2 % (45-73); Platelet Count 102 X10*3/uL (160-400); Red Blood Count 4.99 X10*6/uL (4.60-5.80); Red Cell Distribution Width 14.5 % (11.0-16.0); White Blood Count 4.1 X10*3/uL (4.8-10.8)
[2024-08-22 07:57] LABS: Alanine Aminotransferase 116 U/L (0-40); Albumin Level 3.6 g/dL (3.5-5.0); Alkaline Phosphatase 130 U/L (39-117); Anion Gap 15 (12-20); Aspartate Amino Transferase 75 U/L (5-37); Bilirubin Total 0.7 mg/dL (0.0-1.0); Blood Urea Nitrogen 16 mg/dL (9-16); Calcium 8.7 mg/dL (8.4-10.2); Carbon Dioxide 24 mmol/L (22-29); Chloride 106 mmol/L (96-108); Creatinine Clr Calc Pharmacy 66.9; Estimated Glomerular Filt Rate > 60; Glucose Fasting 91 mg/dL (60-99); Potassium 3.6 mmol/L (3.3-5.1); Sodium 141 mmol/L (135-145); Total Protein 6.3 g/dL (6.5-8.0)
--- NOTE | 2024-08-22 12:57 | MHC.CM.PN ---
Addendum entered by Maru Ponce RN 08/22/24 13:14: Bed offer from [facility] pending auth. LM to inform son/HCP. Original Note: PT REC STR. SON PREFERS FACILITIES IN [facility]. REFERRALS IN PLACE. AWAITING BED OFFER, WILL NEED AUTH.
--- NOTE | 2024-08-22 15:28 | P.PNIM_ITS ---
Subjective Subjective Date of Service: 08/22/24 Interval History: Continues to improve. Remains confused however Review of Systems Denies chest pain Denies shortness of breath Denies nausea vomiting diarrhea Denies fever chills Physical Exam 2 Vital Signs: Vital Signs: Last Vital Signs Temp 97.8 F 08/22/24 11:00 Pulse 95 08/22/24 11:21 Resp 18 08/22/24 11:00 BP 134/85 08/22/24 11:21 Pulse Ox 99 08/22/24 11:21 O2 Del Method Room Air 08/22/24 11:00 BMI result Body Mass Index 22.4 Const: Other: Awake alert confused no acute distress Resp: Other: Clear to auscultation bilaterally no rales rhonchi or wheezes Cardio: Other: No S4; positive S1-S2; no S3 murmurs rubs or gallops GI: Other: Soft nontender nondistended normoactive bowel sounds Extrem: Other: No edema bilaterally Objective Data Active Medications Calcium Carbonate (Calcium Carbonate 750 Mg Tab.Chew) 750 mg PO Q4H PRN PRN Reason: Heartburn Ceftriaxone Sodium (Ceftriaxone Sodium 1 Gm Vial) 1 gm IVPUSH Q24H [facility] Last Admin: 08/22/24 06:06 Dose: 1 gm Documented By: TAMMY Melatonin (Melatonin 3 Mg Tablet) 6 mg PO BEDTIME PRN PRN Reason: Insomnia Ondansetron HCl (Ondansetron Hcl 4 Mg/2 Ml Vial) 4 mg IVPUSH Q8H PRN PRN Reason: Nausea and Vomiting Last Admin: 08/18/24 12:39 Dose: 4 mg Documented By: NING Sodium Chloride (0.9 % Sodium Chloride Flush 3 Ml Syringe) [facility] Last Admin: 08/22/24 09:00 Dose: 3 ml Documented By: JENNIFFER Labs 08/22/24 07:00 08/22/24 07:00 Labs: Laboratory Results - last 24 hr 08/22/24 07:00 MCV 83.6 MCH 28.9 MCHC 34.5 RDW 14.5 Plt Count 102 L MPV 10.3 Immature Gran % (Auto) 0.2 Neut % (Auto) 61.2 Lymph % (Auto) 23.7 [place] % (Auto) 12.4 H Eos % (Auto) 2.0 Baso % (Auto) 0.5 Lymph # (Auto) 1.0 L [place] # (Auto) 0.5 Eos # (Auto) 0.1 Baso # (Auto) 0.0 Abs Immat Gran (auto) 0.01 Absolute Neuts (auto) 2.5 Absolute Nucleated RBC 0.000 Nucleated RBC % (auto) 0.0 Anion Gap 15 Estim Creat Clear Calc 66.9 Estimated GFR > 60 Fasting Glucose 91 Calcium 8.7 Total Bilirubin 0.7 AST 75 H ALT 116 H Alkaline Phosphatase 130 H Total Protein 6.3 L Albumin 3.6 Assessment and Plan (1) Acute UTI: Status: Acute (2) Dementia: Status: Acute Plan This is a 73-year-old male with history of dementia, hypertension, hyperlipidemia, history of UTIs who was brought to the emergency department after fall overnight with generalized weakness and confusion found to have UTI 1.Sepsis secondary to UTI (sepsis resolved) -IV ceftriaxone(5) -urine culture EColi; blood cultures negative times 48 hours -physical therapy consult appreciated -family agrees to short-term rehab 2.Toxic metabolic encephalopathy on a background of dementia -aggressive treatment of 1. Lovenox DNR/DNI Quality Stroke Does the patient have a stroke diagnosis?: No VTE Prior VTE?: No VTE Risk Level:: Medical - moderate - high VTE Device Contraindication: N/A - Device Ordered VTE Drug Contraindication: N/A - Med Ordered
[2024-08-23 04:00] VITALS: BP 134/64; PULSE 89; RESP 16; TEMP 36.7; O2SAT 98
[2024-08-23] MEDS: cefTRIAXone sodium 1 GM VIAL IVPUSH (05:44)
[2024-08-23 07:01] VITALS: BP 149/90; PULSE 80; RESP 18; TEMP 36.3; O2SAT 99
[2024-08-23] MEDS: 0.9 % Sodium Chloride Flush 3 ML SYRINGE IVFLUSH (09:48)
[2024-08-23 11:09] VITALS: BP 136/92; PULSE 94; RESP 18; TEMP 36.6; O2SAT 98
--- NOTE | 2024-08-23 13:48 | MHC.CM.PN ---
CM rec'd call from son. Per son, once patient is medically cleared if mobility has improved he would prefer to take him home. Reports he will come in tomorrow.
--- NOTE | 2024-08-23 13:52 | P.PNIM_ITS ---
Subjective Subjective Date of Service: 08/23/24 Interval History: Continues to improve each day. Son requesting placement Review of Systems Denies chest pain Denies shortness of breath Denies nausea vomiting diarrhea Denies fever chills Physical Exam 2 Vital Signs: Vital Signs: Last Vital Signs Temp 97.8 F 08/23/24 11:09 Pulse 94 08/23/24 11:09 Resp 18 08/23/24 11:09 BP 136/92 H 08/23/24 11:09 Pulse Ox 98 08/23/24 11:09 O2 Del Method Nasal Cannula 08/23/24 11:09 BMI result Body Mass Index 22.4 Const: Other: Awake alert confused no acute distress Resp: Other: Clear to auscultation bilaterally no rales rhonchi or wheezes Cardio: Other: No S4; positive S1-S2; no S3 murmurs rubs or gallops GI: Other: Soft nontender nondistended normoactive bowel sounds Extrem: Other: No edema bilaterally Objective Data Active Medications Calcium Carbonate (Calcium Carbonate 750 Mg Tab.Chew) 750 mg PO Q4H PRN PRN Reason: Heartburn Ceftriaxone Sodium (Ceftriaxone Sodium 1 Gm Vial) 1 gm IVPUSH Q24H [facility] Last Admin: 08/23/24 05:44 Dose: 1 gm Documented By: PÉREZ Melatonin (Melatonin 3 Mg Tablet) 6 mg PO BEDTIME PRN PRN Reason: Insomnia Ondansetron HCl (Ondansetron Hcl 4 Mg/2 Ml Vial) 4 mg IVPUSH Q8H PRN PRN Reason: Nausea and Vomiting Last Admin: 08/18/24 12:39 Dose: 4 mg Documented By: NING Sodium Chloride (0.9 % Sodium Chloride Flush 3 Ml Syringe) [facility] Last Admin: 08/23/24 09:48 Dose: 3 ml Documented By: JENNIFFER Labs 08/22/24 07:00 08/22/24 07:00 Microbiology Microbiology Results: Microbiology 08/18/24 06:08 Blood Culture - Final Blood - Venous No growth after 5 days. 08/18/24 06:15 Blood Culture - Final Blood - Venous No growth after 5 days. Assessment and Plan (1) Acute UTI: Status: Acute Plan This is a 73-year-old male with history of dementia, hypertension, hyperlipidemia, history of UTIs who was brought to the emergency department after fall overnight with generalized weakness and confusion found to have UTI 1.Sepsis secondary to UTI (sepsis resolved) -IV ceftriaxone(6).. Ceftin upon DC for a total of 14 days -urine culture EColi; blood cultures negative times 48 hours -physical therapy consult appreciated -family agrees to short-term rehab 2.Toxic metabolic encephalopathy on a background of dementia -aggressive treatment of 1. Lovenox DNR/DNI Quality Stroke Does the patient have a stroke diagnosis?: No VTE Prior VTE?: No VTE Risk Level:: Medical - moderate - high VTE Device Contraindication: N/A - Device Ordered VTE Drug Contraindication: N/A - Med Ordered
--- NOTE | 2024-08-23 13:55 | P.DS_ITS ---
DS: Providers Provider Date of Service: 08/23/24 Date of admission: 08/18/24 10:54 Primary care physician: Esthela Carrillo MD DS: Diagnosis Discharge Diagnosis (1) Acute UTI: Status: Acute DS: Summary Hospital Course Hospital Course: 3-year-old male with history of dementia, thrombocytopenia, follicular lymphoma, prostate CA was brought to the emergency department after a fall. Patient had fall overnight and was reportedly put back to bed by his son. Is brought in this morning for persistent weakness and confusion. Patient knows his name and that he is at [facility] and he is here for urinary tract infection but is unable to provide any history regarding his medical history or his fall. In the emergency department imaging studies were negative for any trauma. Urinalysis was consistent with urinary tract infection, he was noted to be febrile and started on antibiotics. It appears he may have been diagnosed with UTI as outpatient, patient can't recall what antibiotics he was prescribed but upon review of medication claim history he was prescribed a 7 day course of Bactrim on August 17, unclear if patient took any doses. Due to UTI with encephalopathy the plan was made to admit him to the hospital for further management. Patient denies any abdominal pain, nausea, vomiting, dysuria, he does report chills. Hospital course Admitted to telemetry and placed on empiric ceftriaxone. Urine culture ultimately grew out E coli sensitive to ceftriaxone. Blood cultures negative x5 days. Over the course of his hospitalization, his mentation improved to the point of returning to baseline as per son's description of his baseline. He was seen by Physical therapy and recommended short-term rehab. This was discussed with the son who agrees. At this point in time he will be discharged to short- term rehab in complete an oral course of Ceftin Time Attestation Discharge Coordination Time (in mins): 35 Quality: Safe Use of Opioids Does Pt have an Active Cancer Diagnosis on the Problem List?: No Quality: Stroke Does the patient have a stroke diagnosis?: No Physical Exam Vital Signs: Vital Signs: Last Vital Signs Temp 97.8 F 08/23/24 11:09 Pulse 94 08/23/24 11:09 Resp 18 08/23/24 11:09 BP 136/92 H 08/23/24 11:09 Pulse Ox 98 08/23/24 11:09 O2 Del Method Nasal Cannula 08/23/24 11:09 BMI result Body Mass Index 22.4 Const: Other: Awake alert confused no acute distress Resp: Other: Clear to auscultation bilaterally no rales rhonchi or wheezes Cardio: Other: No S4; positive S1-S2; no S3 murmurs rubs or gallops GI: Other: Soft nontender nondistended normoactive bowel sounds Extrem: Other: No edema bilaterally DS: Data Data Completed and Pending Completed studies during hospitalization [Text1]: Procedures Insertion of Infusion Device into Upper Vein, Percutaneous Approach (11/18/22) Discharge Plan Discharge Patient Disposition: Xfer SNF Discharge Diagnosis: Acute metabolic encephalopathy Referrals: Edilia Manriquez NP [Nurse Practitioner] - 1 Week Discharge Medications: Continued (DME) Depend Underwear For Men Sm-Md Misc See Rx Instructions .MEDSUPPLY Qty: 64 11RF Rx Instructions: As directed-size sm/med loperamide [Imodium A-D] 2 mg Tablet 2 mg PO QID PRN (Reason: Loose Stool) Rx Instructions: Take 2 tabs for first loose stool then one tablet after each next loose stool. psyllium husk 0.52 gram Capsule 0.52 g PO DAILY lidocaine 4 % Adhesive Patch,Medicated 1 patch TOPICAL Q12H atorvastatin 40 mg tablet 40 mg PO DAILY Qty: 90 3RF finasteride 5 mg tablet 5 mg PO DAILY 90 Days Qty: 90 1RF Rx Instructions: Take medication alternating calendar months Discontinued sulfamethoxazole-trimethoprim 800-160 mg tablet 1 tab PO BID Rx Instructions: for 7 days 08/17-08/24 No Action (DME) Washable bed pad Medium See Rx Instructions .Route .MEDSUPPLY Qty: 10 0RF Rx Instructions: As directed Diet: Advance to usual diet Activity on Discharge: As tolerated Stand Alone Forms: Patient Portal Discharge page Print Language: Amharic
[2024-08-23 16:00] VITALS: BP 139/89; PULSE 100; RESP 18; TEMP 36.4; O2SAT 99
[2024-08-23 19:42] VITALS: BP 160/70; PULSE 90; RESP 18; TEMP 36.6; O2SAT 99
[2024-08-24] MEDS: 0.9 % Sodium Chloride Flush 3 ML SYRINGE IVFLUSH ×2 (02:13→09:24)
[2024-08-24 03:09] VITALS: BP 147/98; PULSE 85; RESP 18; TEMP 36.1; O2SAT 100
[2024-08-24] MEDS: cefTRIAXone sodium 1 GM VIAL IVPUSH (05:20)
[2024-08-24 07:43] VITALS: BP 154/72; PULSE 72; RESP 18; TEMP 36.3; O2SAT 100
[2024-08-24 09:44] VITALS: BP 154/72; PULSE 72; O2SAT 100
--- NOTE | 2024-08-24 11:29 | MHC.CM.PN ---
Addendum entered by Dominique Joiner RN 08/24/24 15:24: carlos for [facility] transport at 3pm, per [facility] pt close to baseline and okay to return home w/son and outpt PT at day program Original Note: CM CONTACTED PT'S SON/HCP FLOYD AT NUMBER ON FILE OT FOLLOW UP FLOYD REPORTED TO W/E CM THAT HE WOULD BE IN TODAY HOWEVER WHEN CM CONTACTED FLOYD HE REPORTS HE WOULDN'T HAVE TRANSPORTATION UNTIL 6PM AND ALTHOUGH P.T. HAD RECOMMENDED PT GO TO [facility], CM CONTACTED LIZZIE FROM [facility] [phone] TO MAKE DURE THEY WOULD PROVIDE PT AT PROGRAM FOR PT HOWEVER LIZZIE REQUESTED PT EVAL/NOTES TO REVIEW HE WANT'S TO MAKE SURE PT IS DOING WELL ENOUGH TO GO HOME, LIZZIE NOTES IN BOTH CONVERSATIONS TO THIS CM THAT PT'S SON IS PAID CAREGIVER. CM WILL AWAIT CALL BACK [facility].
[2024-08-24] MEDS: cefuroxime axetiL 250 MG TABLET PO (12:43)
--- NOTE | 2024-08-24 12:50 | P.DS_ITS ---
DS: Providers Provider Date of Service: 08/24/24 Date of admission: 08/18/24 10:54 Primary care physician: Esthela Carrillo MD DS: Diagnosis Discharge Diagnosis (1) Acute UTI: Status: Acute DS: Summary Hospital Course Hospital Course: 3-year-old male with history of dementia, thrombocytopenia, follicular lymphoma, prostate CA was brought to the emergency department after a fall. Patient had fall overnight and was reportedly put back to bed by his son. Is brought in this morning for persistent weakness and confusion. Patient knows his name and that he is at [facility] and he is here for urinary tract infection but is unable to provide any history regarding his medical history or his fall. In the emergency department imaging studies were negative for any trauma. Urinalysis was consistent with urinary tract infection, he was noted to be febrile and started on antibiotics. It appears he may have been diagnosed with UTI as outpatient, patient can't recall what antibiotics he was prescribed but upon review of medication claim history he was prescribed a 7 day course of Bactrim on August 17, unclear if patient took any doses. Due to UTI with encephalopathy the plan was made to admit him to the hospital for further management. Patient denies any abdominal pain, nausea, vomiting, dysuria, he does report chills. Hospital course Admitted to telemetry and placed on empiric ceftriaxone. Urine culture ultimately grew out E coli sensitive to ceftriaxone. Blood cultures negative x5 days. Over the course of his hospitalization, his mentation improved to the point of returning to baseline as per son's description of his baseline. He was seen by Physical therapy and recommended short-term rehab, however son wishes patient to be discharged home and continue physical therapy at day program, patient is being discharged home on by mouth Ceftin 250 mg twice daily to finish a 2 week course of antibiotic. recommend to continue all home medications as before Time Attestation Discharge Coordination Time (in mins): 38 Quality: Safe Use of Opioids Does Pt have an Active Cancer Diagnosis on the Problem List?: No Quality: Stroke Does the patient have a stroke diagnosis?: No Physical Exam Vital Signs: Vital Signs: Last Vital Signs Temp 97.4 F 08/24/24 07:43 Pulse 72 08/24/24 09:44 Resp 18 08/24/24 07:43 BP 154/72 H 08/24/24 09:44 Pulse Ox 100 08/24/24 09:44 O2 Del Method Room Air 08/24/24 07:43 BMI result Body Mass Index 22.4 Const: Other: General resting comfortably in no acute distress. Neck no JVD. CVS regular rate rhythm, Respiratory lungs clear to auscultation, no respiratory distress, no wheeze, no rhonchi. Gastrointestinal abdomen soft, non tender, bowel sounds audible,no guarding , no rigidity. Extremities no edema. Neuro moving all 4 extremity, speech clear. Skin no rash DS: Data Data Completed and Pending Completed studies during hospitalization [Text1]: Procedures Insertion of Infusion Device into Upper Vein, Percutaneous Approach (11/18/22) Discharge Plan Discharge Anticipated Discharge Date/Time: 08/24/24 11:29 Patient Disposition: Xfer SNF Discharge Diagnosis: Acute metabolic encephalopathy Referrals: Dawit Saldaña [address] [Outside] - 1 Day (SHORT TERM REHAB) Edilia Manriquez, LAITH [Nurse Practitioner] - 1 Week Discharge Medications: New cefuroxime axetil 250 mg Tablet 250 mg PO Q12H Qty: 14 0RF Continued (DME) Washable bed pad Medium See Rx Instructions .Route .MEDSUPPLY Qty: 10 0RF Rx Instructions: As directed (DME) Depend Underwear For Men Sm-Md Misc See Rx Instructions .MEDSUPPLY Qty: 64 11RF Rx Instructions: As directed-size sm/med loperamide [Imodium A-D] 2 mg Tablet 2 mg PO QID PRN (Reason: Loose Stool) Rx Instructions: Take 2 tabs for first loose stool then one tablet after each next loose stool. psyllium husk 0.52 gram Capsule 0.52 g PO DAILY lidocaine 4 % Adhesive Patch,Medicated 1 patch TOPICAL Q12H atorvastatin 40 mg tablet 40 mg PO DAILY Qty: 90 3RF finasteride 5 mg tablet 5 mg PO DAILY 90 Days Qty: 90 1RF Rx Instructions: Take medication alternating calendar months Discontinued sulfamethoxazole-trimethoprim 800-160 mg tablet 1 tab PO BID Rx Instructions: for 7 days 08/17-08/24 Discharge Orders: Discharge Order (Routine); Ordered 08/24/24 Ordered By: Marie Solo Diet: Advance to usual diet Activity on Discharge: As tolerated Stand Alone Forms: Patient Portal Discharge page Print Language: Indonesian Care Plan Goals: E coli UTI take antibiotics Ceftin 1 tablet twice daily as prescribed continue physical therapy at day program Health Concerns: resume all home medications as before Plan of Treatment: follow-up with primary care physician call for appointment Assessment: As above Discharge Date/Time: 08/24/24 15:25
--- NOTE | 2024-08-24 15:24 | MHC.SL.SWA ---
Speech Pathologist Impression: Adequate oropharygneal swallow Risk of Aspiration Due to: Neurological Condition Dysphasia Diet Status: Patient seen during lunch meal. Patient had already eaten mostly what he wanted from the meal at the onset of treatment, which was only a small amount of food on tray. Patient had chosen a chopped southwestern salad for lunch, had CO that it was spicy and not to his liking. Patient was asked to take a couple of bites of the meal, with patient producing a mildly prolonged oral phase/mastication, followed by timely swallow with no clinical signs of aspiration. Patient was also observed taking sips of liquid by straw with no difficulties noted. Patient reports that he has had no difficulties during stay, has been eating well, although he had c/o of sores which had developed on lips. Recommend Patient continue on current, least restrictive diet with Regular food and thin liquids pills whole with liquid or puree. Recommend TOOLROOM CLERK discontinue at this time. Liquid Consistency and Strategies for Safe Swallow: Liquid Intake Recommendation: Thin Liquid Intake Strategies: Small Sips Solid Food Consistency: Dietary Recommendations: Regular Additional Modifications to Solid Foods: Avoid difficult to chew solids Oral Medication Intake: Whole with Liquid Please contact the pharmacy regarding appropriate crushable or liquid drug formulations that are available whenever modified delivery is recommended. Compensatory Strategies and Precautions to be Taken for Safe Swallow: Sitting Upright (90 deg) Small Bites and Sips Alternate Liquids/Solids Rate of Ingestion Change Oral Check Supervision While Eating and Drinking for Safe Swallow: Total Supervision (1:1) Foods to Avoid: Large uncut pieces of meat, difficult to chew solids. Swallowing Recommended Treatments: Compens. Strategy Educat. Recommendation for Speech: Inpatient Speech Therapy Comment: Pt requires intermittent assistance with set up and self feeding. Frequency/Duration: Date Range for Service Req: Timeline to reassess: Spooling Operator Clinican/Clinical Fellow: No Supervisory Statement: I have reviewed and agree with the student/clinical fellow's documentation: N/A Speech Language Pathologist: Kassidy Martins M.S., CCC-TOOLROOM CLERK
== END 2024-08-24 15:25 | disposition skilled nursing facility (03) | DRG 689 ==
LOC: HO.ED 10:02 → HO.EDOVER 11:01 → HO.S3 17:54 → HO.IMC 19:44
PROVIDERS: Emergency Medicine; Hospitalist; Admitting Provider Physician Assistant Medical; Emergency Provider Emergency Medicine; PCP Internal Medicine; Visit Provider Hospitalist
DX: N39.0 Urinary tract infection, site not specified (principal); G92.8 Other toxic encephalopathy; C82.9A Follicular lymphoma, unspecified, in remission; I69.354 Hemiplegia and hemiparesis following cerebral infarction affecting left non-dominant side; N17.9 Acute kidney failure, unspecified; B96.20 Unspecified Escherichia coli [E. coli] as the cause of diseases classified elsewhere; F03.90 Unspecified dementia, unspecified severity, without behavioral disturbance, psychotic disturbance, mood disturbance, and anxiety; Z66 Do not resuscitate; E78.5 Hyperlipidemia, unspecified; N40.0 Benign prostatic hyperplasia without lower urinary tract symptoms; Z20.822 Contact with and (suspected) exposure to COVID-19; Z87.440 Personal history of urinary (tract) infections; Z79.899 Other long term (current) drug therapy
CPT/HCPCS: 0241U; 36415; 70450; 71045; 72125; 80048; 80053; 80076; 81001; 82140; 82550; 82803; 83605; 83690; 83735; 83880; 84145; 84484; 85025; 85610; 86140; 87040; 87086; 87088; 87186; 92526; 92610; 93005; 97161; 97530; 99285; J0131; J0696; J1885; J2405; J7120

== ENCOUNTER → 2024-08-18 05:50 | Outpatient (BNV) | payer MEDICARE, MEDICAID, SELFPAY | PROVIDERS: Admitting Provider Physician Assistant Medical; Emergency Provider Emergency Medicine; PCP Internal Medicine; Visit Provider Internal Medicine | DX: R00.0 Tachycardia, unspecified (principal); R41.82 Altered mental status, unspecified | CPT/HCPCS: 93010 ==

== ENCOUNTER → 2024-08-18 10:54 | Outpatient (BNV) | payer MEDICARE, MEDICAID, SELFPAY | PROVIDERS: Admitting Provider Physician Assistant Medical; Emergency Provider Emergency Medicine; PCP Internal Medicine; Visit Provider Physician Assistant Medical | DX: N39.0 Urinary tract infection, site not specified (principal) | CPT/HCPCS: 99223; 99232; 99239; 99499 ==

== ENCOUNTER 2024-12-10 19:31 | Emergency (ER) | payer MEDICARE, MEDICAID, SELFPAY ==
--- NOTE | 2024-12-10 | ECG_ITS ---
Test Reason : ? PROLONGED QT Blood Pressure : */* mmHG Vent. Rate : 69 BPM Atrial Rate : 69 BPM P-R Int : 166 ms QRS Dur : 80 ms QT Int : 444 ms P-R-T Axes : 32 -3 40 degrees QTcB Int : 475 ms Normal sinus rhythm Normal ECG When compared with ECG of 18-Aug-2024 06:17, Premature atrial complexes are no longer Present Referred By: Generic ED Physician Electronically Signed By: Narciso Wen
[2024-12-10 19:40] VITALS: BP 175/102; RESP 16; TEMP 36.4; O2SAT 98
[2024-12-10 19:41] VITALS: BP 169/117; BP 172/102; PULSE 78; PULSE 80; RESP 20; TEMP 36.4; O2SAT 97; O2SAT 98; BMI 22.9
--- NOTE | 2024-12-10 19:56 | ED.GENADULT ---
HPI - General Adult General Chief complaint: General Medical Stated complaint: sepsis? Time Seen by Provider: 12/10/24 19:56 Source: family and EMS Mode of arrival: EMS Limitations: no limitations History of Present Illness ED Provider: HPI narrative: Patient's history of hypotension hyperlipidemia and dementia just discharged from rehab facility after 2 months stay about 4 hours ago the movement patient has reached home son noticed patient been sweating and having chills in more confused patient with apparently much better in the jail patient does have history of UTI patient is afebrile on arrival sleeping in the ER no signs of fall or injury patient was nauseated and vomited once at home sudden also noticed that patient has bilateral ankle edema Patient lives at home with son and son at this time does not want him to go to jail or rehab Related Data Home Medications ?Medication ?Instructions ?Recorded ?Confirmed lidocaine 4 % topical patch 1 patch topical Q12H 08/18/24 08/18/24 loperamide 2 mg tablet (Imodium 2 mg PO QID PRN Loose Stool 08/18/24 08/18/24 A-D) psyllium husk 0.52 gram capsule 0.52 g PO DAILY 08/18/24 08/18/24 Previous Rx's ?Medication ?Instructions ?Recorded Washable bed pad #10 ea 12/01/21 atorvastatin 40 mg tablet 40 mg PO DAILY #90 tabs 09/06/23 finasteride 5 mg tablet 5 mg PO DAILY 90 days #90 tabs 10/11/23 Depend Underwear For Men Alexy #64 ea 01/17/24 (diaper,brief,adult,disposable) cefuroxime axetil 250 mg tablet 250 mg PO Q12H #14 tabs 08/24/24 cefuroxime axetil 250 mg tablet 250 mg PO BID 10 days #20 tabs 12/11/24 Allergies Allergy/AdvReac Type Severity Reaction Status Date / Time No Known Allergies Allergy Verified 12/10/24 19:45 [No Known Allergies*] Review of Systems Review of Systems: Yes Unobtainable due to mental condition [facility] Past Medical History Medical History Acute UTI Thrombocytopenia History of CVA (cerebrovascular accident) History of CVA (cerebrovascular accident) Syncope Hypertension Hearing loss Recurrent UTI Annual physical exam Hyperglycemia BPH (benign prostatic hyperplasia) Hyperlipidemia Abnormal computed tomography angiography (CTA) Dementia Lumbar spinal stenosis CVA (cerebral vascular accident) HTN (hypertension) Follicular lymphoma Surgical History No pertinent past surgical history H/O colonoscopy Family History Family History Father Colon cancer HTN (hypertension) Brother Non-Hodgkin lymphoma HTN (hypertension) Sister HTN (hypertension) Mother HTN (hypertension) TIA (transient ischemic attack) Social History Social History Household Members: Children Household Members Other:: He mentioned 2 dogs and a person, but not answering now. Housing: House Housing Other:: Unsure if this is correct. Are you a primary acute care certified nursing assistant to a significant other at home: No Do you presently have visiting nurse or other home services: Yes Unable to assess alcohol history related to: Unknown Alcohol intake: never Patient Tobacco Use Status: Former Tobacco user e-Cigarette/Vaping Use: Never Used Advance Directives: Yes Advance Directives on File: Yes Advance Directives Date on File: 08/29/22 service: No Current occupational status: retired Cognitive needs: No Hearing needs: Yes Vision needs: No Physical Exam ED Vital Signs: Vital Signs - 24 hr 12/10/24 19:40 12/10/24 19:41 12/10/24 21:26 Temperature 97.5 F 97.5 F Pulse Rate 78 74 Respiratory Rate 16 20 16 Blood Pressure 175/102 H 172/102 H 152/97 H Pulse Oximetry 98 98 97 Oxygen Delivery Method Room Air Room Air Room Air 12/11/24 02:02 Temperature 97.9 F Pulse Rate 99 Respiratory Rate 20 Blood Pressure 140/97 H Pulse Oximetry 96 Oxygen Delivery Method Room Air BMI result Body Mass Index 22.9 Appearance: lethargic with dementia. No acute distress. Eyes: PERRLA, no pallor or icterus ENT: Pharynx normal. Oral Mucosa moist Neck: Normal inspection. Neck supple. CVS: Normal heart rate and rhythm. Pulses normal. Respiratory: No respiratory distress. Equal air entry bilateral, no wheezing/rales/rhonchi Abdomen: Soft and nontender. Bowel sounds are present, no mass palpable, no CVA tenderness Skin: Skin warm and dry. Normal skin color. Normal skin turgor. Extremities: Trace ankle edema. No calf tenderness Neuro: Demented moving his all 4 extremities Medications Administered Discontinued Medications Generic Name Dose Route Start Last Admin Trade Name Donq PRN Reason Stop Dose Admin Ceftriaxone Sodium 1 gm 12/10/24 23:51 12/11/24 00:11 Ceftriaxone Sodium 1 Gm Vial IVPUSH 12/10/24 23:52 1 gm ONCE ONE Administration Sodium Chloride 1,000 mls @ 999 mls/hr 12/10/24 23:52 12/11/24 02:02 Ns IV 12/11/24 00:52 Infused .Q1H1M ONE Infusion Medical Decision Making Medical Decision Making MDM Narrative: Patient with UTI with dementia will give IV Rocephin patient has had E coli in the past which sensitive to ceftriaxone patient has normal WBC count and leg negative lactic acid level plan discharge in a.m. on cefuroxime will consult case management for home situation After receiving IV Rocephin and IV fluids patient feels feeling much better and a more awake will keep for observation till a.m. and the son comes discharged on cefuroxime p.o. Differential Diagnosis Differential Diagnoses: The differential diagnosis associated with the presentation includes Metabolic encephalopathy/UTI Lab Data [facility] Lab Attestation statement: I reviewed the patient's lab results. 12/10/24 19:55 12/10/24 19:55 Labs: Lab Results 12/10/24 12/10/24 12/11/24 Range/Units 19:55 23:09 00:05 WBC 5.2 (4.8-10.8) X10*3/uL RBC 5.05 (4.60-5.80) X10*6/uL Hgb 14.4 (14.0-18.0) g/dl Hct 42.2 (42.0-52.0) % MCV 83.6 (80.0-98.0) fL MCH 28.5 (27.0-33.0) pg MCHC 34.1 (31.0-36.0) g/dl RDW 15.6 (11.0-16.0) % Plt Count 125 L (160-400) X10*3/uL MPV 10.3 (9.4-12.4) fL Immature Gran % (Auto) 0.6 H (0.0-0.4) % Neut % (Auto) 78.3 H (45-73) % Lymph % (Auto) 13.6 L (20-40) % Prentiss % (Auto) 5.0 (2-11) % Eos % (Auto) 1.7 (0-4) % Baso % (Auto) 0.8 (0-2) % Lymph # (Auto) 0.7 L (1.2-4.9) X10*3/uL Prentiss # (Auto) 0.3 (0.1-1.2) X10*3/uL Eos # (Auto) 0.1 (0.0-0.4) X10*3/uL Baso # (Auto) 0.0 (0.0-0.2) X10*3/uL Abs Immat Gran (auto) 0.03 (0.00-0.03) X10*3/uL Absolute Neuts (auto) 4.0 (2.0-8.3) x10*3/uL Absolute Nucleated RBC 0.000 (0.0-0.012) X10*3/uL Nucleated RBC % (auto) 0.0 (0.0-0.2) /100WBC Sodium 140 (135-145) mmol/L Potassium 5.0 D (3.3-5.1) mmol/L Chloride 110 H (96-108) mmol/L Carbon Dioxide 23 (22-29) mmol/L Anion Gap 12 (12-20) BUN 16 (9-16) mg/dL Creatinine 1.08 (0.5-1.4) mg/dL Estim Creat Clear Calc 60.4 Estimated GFR > 60 Random Glucose 126 H (60-115) mg/dL Lactic Acid 1.4 (0.5-2.0) mmol/L Calcium 8.2 L (8.4-10.2) mg/dL Total Bilirubin 0.6 (0.0-1.0) mg/dL AST 62 H (5-37) U/L ALT 40 (0-40) U/L Alkaline Phosphatase 95 (39-117) U/L B-Natriuretic Peptide 56 (<100) pg/mL Total Protein 7.5 (6.5-8.0) g/dL Albumin 3.9 (3.5-5.0) g/dL Urine Color Yellow Urine Appearance Turbid Urine pH 6.5 (5.0-9.0) Ur Specific Bucks 1.015 (1.005-1.025) Urine Protein Trace (Neg-Trace) mg/dL Urine Glucose (UA) Negative (Negative) mg/dL Urine Ketones Negative (Negative) mg/dL Urine Blood Trace H (Negative) Urine Nitrite Positive H (Negative) Ur Leukocyte Esterase Large (3+) H (Negative) Urine RBC 0-2 (0-2) /HPF Urine WBC >50 H (0-5) /HPF Ur Squamous Epith Cells 0-2 (0-2) /HPF Urine Bacteria 4+ (None Seen) Hyaline Casts 0-2 (0-2) /LPF Influenza Type A (PCR) NEGATIVE (Negative) Influenza Type B (PCR) NEGATIVE (Negative) RSV RNA Qual (PCR) NEGATIVE (Negative) SARS-CoV-2 RNA (RT-PCR) NEGATIVE (Negative) Independent Interpretation I performed an independent interpretation of an: EKG Interpretation: Normal sinus rhythm heart rate 69 beats per minute normal interval normal axis no acute ischemic changes Discharge Plan Discharge Clinical Impression: Dementia, Acute UTI Patient Disposition: Still a Patient Instructions: Urinary Tract Infection in Men (DC), Dementia (ED) Additional Instructions: Drink plenty of fluids Take antibiotic as prescribed Follow up with your PCP Prescriptions: New cefuroxime axetil 250 mg tablet 250 mg PO BID 10 Days Qty: 20 0RF No Action (DME) Washable bed pad Medium See Rx Instructions .Route .MEDSUPPLY Qty: 10 0RF Rx Instructions: As directed (DME) Depend [facility] For [facility] See Rx Instructions .MEDSUPPLY Qty: 64 11RF Rx Instructions: As directed-size sm/med loperamide [Imodium A-D] 2 mg Tablet 2 mg PO QID PRN (Reason: Loose Stool) Rx Instructions: Take 2 tabs for first loose stool then one tablet after each next loose stool. psyllium husk 0.52 gram Capsule 0.52 g PO DAILY lidocaine 4 % Adhesive Patch,Medicated 1 patch TOPICAL Q12H cefuroxime axetil 250 mg Tablet 250 mg PO Q12H Qty: 14 0RF atorvastatin 40 mg tablet 40 mg PO DAILY Qty: 90 3RF finasteride 5 mg tablet 5 mg PO DAILY 90 Days Qty: 90 1RF Rx Instructions: Take medication alternating calendar months Print Language: Nigerien
[2024-12-10 19:59] LABS: MANUAL DIFF FLAG NO
--- NOTE | 2024-12-10 20:00 | PC.NURSE ---
Pt MARIANNE from home, was discharge today from [facility] facility. Per EMS son reports vomiting and new swelling to bilateral feet. EMS placed line and gave 250 mL of NS. 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 No swelling noted to BLE.
[2024-12-10 20:16] LABS: Alanine Aminotransferase 40 U/L (0-40); Albumin Level 3.9 g/dL (3.5-5.0); Alkaline Phosphatase 95 U/L (39-117); Anion Gap 12 (12-20); Aspartate Amino Transferase 62 U/L (5-37); Bilirubin Total 0.6 mg/dL (0.0-1.0); Blood Urea Nitrogen 16 mg/dL (9-16); Calcium 8.2 mg/dL (8.4-10.2); Carbon Dioxide 23 mmol/L (22-29); Chloride 110 mmol/L (96-108); Creatinine Clr Calc Pharmacy 60.4; Estimated Glomerular Filt Rate > 60; Glucose Random 126 mg/dL (60-115); Sodium 140 mmol/L (135-145); Total Protein 7.5 g/dL (6.5-8.0)
[2024-12-10 20:22] LABS: Basophils Percent Auto 0.8 % (0-2); Eosinophils Absolute Auto 0.1 X10*3/uL (0.0-0.4); Eosinophils Percent Auto 1.7 % (0-4); Hematocrit 42.2 % (42.0-52.0); Hemoglobin 14.4 g/dl (14.0-18.0); Imm Gran Abs Auto 0.03 X10*3/uL (0.00-0.03); Imm Gran Pct Auto 0.6 % (0.0-0.4); Lymphocytes Absolute Auto 0.7 X10*3/uL (1.2-4.9); Lymphocytes Percent Auto 13.6 % (20-40); Mean Corpuscular HGB Conc 34.1 g/dl (31.0-36.0); Mean Corpuscular Hemoglobin 28.5 pg (27.0-33.0); Mean Corpuscular Volume 83.6 fL (80.0-98.0); Mean Platelet Volume 10.3 fL (9.4-12.4); Monocytes Absolute Auto 0.3 X10*3/uL (0.1-1.2); Neutrophils Percent Auto 78.3 % (45-73); Platelet Count 125 X10*3/uL (160-400); Red Blood Count 5.05 X10*6/uL (4.60-5.80); Red Cell Distribution Width 15.6 % (11.0-16.0); White Blood Count 5.2 X10*3/uL (4.8-10.8)
[2024-12-10 20:37] LABS: Influenza A PCR NEGATIVE (Negative); Influenza B PCR NEGATIVE (Negative); Resp Syncy Virus RNA Qual PCR NEGATIVE (Negative); SARS COV2 PCR INHOUSE NEGATIVE (Negative)
[2024-12-10 21:11] LABS: B Type Natriuretic Peptide 56 pg/mL (<100)
[2024-12-10 21:26] VITALS: BP 152/97; PULSE 74; RESP 16; O2SAT 97
[2024-12-10 23:26] LABS: Appearance Urine Turbid; Color Urine Yellow; Glucose Urine UA Negative (Negative); Leukocyte Esterase Urine Large (3+) (Negative); Nitrite Urine Positive (Negative); PH 6.5 (5.0-9.0); Specific Gravity - Urine 1.015 (1.005-1.025); UMIC TRIGGER UACC YES; Urine Blood Trace (Negative); Urine Ketones Negative (Negative); Urine Protein Trace mg/dL (Neg-Trace)
[2024-12-10 23:31] LABS: Bacteria Urine 4+ (None Seen); Hyaline Casts Urine 0-2 /LPF (0-2); RBC Urine 0-2 /HPF (0-2); Squamous Epithelial Cell Urine 0-2 /HPF (0-2); UACC Culture Trigger YES; WBC Urine >50 /HPF (0-5)
[2024-12-11] MEDS: 0.9 % Sodium Chloride 1,000 ML 999 ML IV (00:11)
[2024-12-11] MEDS: cefTRIAXone sodium 1 GM VIAL IVPUSH (00:11)
[2024-12-11 00:30] LABS: Lactic Acid 1.4 mmol/L (0.5-2.0)
[2024-12-11 02:02] VITALS: BP 140/97; PULSE 99; RESP 20; TEMP 36.6; O2SAT 96
[2024-12-11 06:32] VITALS: BP 144/78; PULSE 92; RESP 16; TEMP 36.6; O2SAT 95
--- NOTE | 2024-12-11 06:33 | MHC.EDTECH ---
patient cleaned up of urine, new irineo and pads changed. patient in position of comfort
--- NOTE | 2024-12-11 06:47 | PC.NURSE ---
Pt had one episode of clear vomit. Cleaned up by facility technician. Pt denies any pain.
--- NOTE | 2024-12-11 11:53 | MHC.CM.ED ---
Received case management consult overnight from Dr Simon. Patient was d/c'd from [facility] on 12/10. Came to the ER due to feet swelling. Found to have an UTI. Spoke with patient's son/caregiver, Kamar, via telephone. Per Kamar, patient can d/c home. [facility] booked. [facility] with chart. Per [facility], patient was d/c'd with [facility]. Return referral made in [facility]. Continue to monitor for d/c needs.
--- NOTE | 2024-12-11 12:04 | PHA.MEDREC ---
Addendum entered by Radha Plunkett RPh 12/11/24 12:38: Reviewed by [facility] Original Note: Pharmacy Consult ? Medication Reconciliation Pharmacy has completed the medication reconciliation. Utilized [facility] med [facility]
[2024-12-11 14:22] VITALS: BP 133/77; PULSE 95; RESP 18; TEMP 36.6; O2SAT 96
[2024-12-11 14:25] VITALS: BP 133/77; PULSE 95; RESP 18; TEMP 36.6; O2SAT 96
--- NOTE | 2024-12-11 14:29 | PC.NURSE ---
Son Kamar aware that patient is on his way home at this time. Explained to son that edema in feet coud be caused by patient sitting up in wheehchair without elevating his feet for most of the day when he was at the nursing facility
== END 2024-12-11 14:29 | disposition home or self-care (01) ==
PROVIDERS: Emergency Provider Internal Medicine; PCP Internal Medicine
DX: F03.90 Unspecified dementia, unspecified severity, without behavioral disturbance, psychotic disturbance, mood disturbance, and anxiety (principal); N39.0 Urinary tract infection, site not specified; R11.2 Nausea with vomiting, unspecified; R60.9 Edema, unspecified; I10 Essential (primary) hypertension; E78.5 Hyperlipidemia, unspecified; Z79.899 Other long term (current) drug therapy; Z03.818 Encounter for observation for suspected exposure to other biological agents ruled out
CPT/HCPCS: 0241U; 36415; 80053; 81001; 83605; 83880; 85025; 87040; 87086; 87088; 87186; 93005; 96361; 96374; 99284; 99285; J0696

== ENCOUNTER → 2024-12-10 19:48 | Outpatient (BNV) | payer MEDICARE, MEDICAID, SELFPAY | PROVIDERS: Emergency Provider Internal Medicine; Visit Provider Internal Medicine Cardiovascular Disease | DX: R11.10 Vomiting, unspecified (principal) | CPT/HCPCS: 93010 ==

== ENCOUNTER 2024-12-11 15:11 | Emergency (ER) | payer MEDICARE, MEDICAID, SELFPAY ==
--- NOTE | ~2024-12-11 | XR_ITS ---
CLINICAL HISTORY: vomiting, confusion One view of the chest Comparison: CR/SR - XR CHEST 1V - 08/18/24 05:51 EST Findings: Cardiac and mediastinal contours are stable. Mild interstitial prominence with scattered peribronchial thickening. No focal consolidation. No effusion. No pneumothorax. No acute osseous finding. Impression: Mild chronic appearing interstitial prominence with scattered peribronchial thickening. No focal consolidation. This document has been electronically signed by: Gigi Lr MD on 12/11/2024 17:31:29
--- NOTE | ~2024-12-11 | CT_ITS ---
CLINICAL HISTORY: vomiting, HTN, confusion CT head without contrast Comparison: CT/SR - CT HEAD/BRAIN WO IV CON - 08/18/24 06:30 EST Findings: No evidence of acute territorial infarct. There is prominent patchy low density in the periventricular and subcortical white matter. Diffuse volume loss is noted. No hydrocephalus. No hemorrhage, mass effect, mass lesion or midline shift. No abnormal extra-axial fluid. No calvarial fracture. Paranasal sinuses and mastoid air cells are clear. Impression: No evidence of acute process. Ischemic microangiopathy and diffuse volume loss. This document has been electronically signed by: Gigi Lr MD on 12/11/2024 19:00:18
--- NOTE | ~2024-12-11 | CT_ITS ---
CLINICAL HISTORY: vomiting, confusion, UTI CT abdomen and pelvis without contrast Comparison: 04/03/2023 Findings: Mild dependent changes of the lung bases. The liver demonstrates a bilobed, thinly septated cyst, benign and stable. The gallbladder, adrenal glands and pancreas are unremarkable. The spleen is unremarkable. No renal obstruction. Left renal cyst noted. No calculus the bladder is distended. Normal appendix. No bowel obstruction, free air, free fluid or abscess. There is diverticulosis without evidence of diverticulitis. Fecal retention in the rectosigmoid. Probable focus peristalsis or less likely colonic thickening involving the sigmoid on axial 67. The prostate gland is significantly enlarged. There is abnormal retroperitoneal adenopathy and retroperitoneal stranding, nonspecific No destructive bone lesion identified. There is an L2 compression fracture, new from prior there is a proximally 20% height loss. Impression: Similar-appearing retroperitoneal adenopathy and haziness, uncertain etiology. CT sampling may be possible if clinically indicated. There is a new compression fracture at L2, with mild superior endplate height loss, ultimately age indeterminate. Significant prostate gland enlargement. No definite acute process This document has been electronically signed by: Gigi Lr MD on 12/11/2024 19:12:04
[2024-12-11 15:36] VITALS: BP 176/96; PULSE 82; RESP 19; TEMP 36.6; O2SAT 98; BMI 23.5
--- NOTE | 2024-12-11 16:06 | ED_ITS ---
HPI - Nausea/Vomiting/Diarrhea General Chief complaint: Nausea/Vomiting/Diarrhea Stated complaint: vomiting Time Seen by Provider: 12/11/24 16:02 Source: patient, family (son) and EMS Mode of arrival: EMS Limitations: other (dementia) History of Present Illness ED Provider: TIESHA SPENCE PA-C HPI Narrative: 74 year old male with pmhx significant for HTN, HDL, dementia, recurrent UTIs, BPH, hemorrhagic CVA (2018), lumbar spinal stenosis, follicular lymphoma, and prostate cancer presents to the ED today for evaluation of vomiting. Patient was evaluated at our facility yesterday for confusion, nausea and one episode of vomiting upon returning home from a 4 month stay at rehab. He was diagnosed with a UTI and given one dose of ceftriaxone in ED. His work up was essentially unremarkable other than noted UTI on UA. He was evaluated by PT/CM and discharged home this morning on PO ceftin as he did not meet inpatient criteria for admission. He currently lives at home with his son. On discharge, EMS transported patient back home when he suddenly vomited while on the stretcher in front of his home. His son requested he be transported back to the ED for further evaluation. His antibiotics were not yet picked up from the pharmacy. Patient has a history of dementia. He knows his name and that he is at [employer]. He is able to tell me he vomited yesterday and again today. He denies any abdominal pain. Reports normal BM. Related Data Home Medications ?Medication ?Instructions ?Recorded ?Confirmed acetaminophen 325 mg tablet 650 mg PO TID 12/11/24 12/12/24 cephalexin 250 mg capsule 250 mg PO DAILY 12/11/24 12/12/24 lidocaine 4 % topical patch 1 patch topical DAILY 12/11/24 12/12/24 metoprolol tartrate 25 mg tablet 25 mg PO BID 12/11/24 12/12/24 mirtazapine 7.5 mg tablet 7.5 mg PO BEDTIME 12/11/24 12/12/24 Previous Rx's ?Medication ?Instructions ?Recorded Washable bed pad #10 ea 12/01/21 atorvastatin 40 mg tablet 40 mg PO DAILY #90 tabs 09/06/23 finasteride 5 mg tablet 5 mg PO DAILY 90 days #90 tabs 10/11/23 Depend Underwear For Men Alexy #64 ea 01/17/24 (diaper,brief,adult,disposable) cefuroxime axetil 250 mg tablet 250 mg PO BID 9 days #18 tabs 12/12/24 ondansetron 4 mg disintegrating 4 mg PO DAILY PRN nausea and 12/12/24 tablet vomiting 5 days #7 tabs Allergies Allergy/AdvReac Type Severity Reaction Status Date / Time No Known Allergies Allergy Verified 12/11/24 15:41 [No Known Allergies*] Review of Systems 2 Review of Systems: Yes all other systems are reviewed and are negative [facility]LY [facility] Past Medical History Attestation statement: The following information was validated with the patient. Source: old records reviewed, obtained from family and nursing notes reviewed Medical History Acute UTI Thrombocytopenia History of CVA (cerebrovascular accident) History of CVA (cerebrovascular accident) Syncope Hypertension Hearing loss Recurrent UTI Annual physical exam Hyperglycemia BPH (benign prostatic hyperplasia) Hyperlipidemia Abnormal computed tomography angiography (CTA) Dementia Lumbar spinal stenosis CVA (cerebral vascular accident) HTN (hypertension) Follicular lymphoma Surgical History No pertinent past surgical history H/O colonoscopy Family History Family History Father Colon cancer HTN (hypertension) Brother Non-Hodgkin lymphoma HTN (hypertension) Sister HTN (hypertension) Mother HTN (hypertension) TIA (transient ischemic attack) Social History Social History Household Members: Children Household Members Other:: He mentioned 2 dogs and a person, but not answering now. Housing: House Housing Other:: Unsure if this is correct. Are you a primary summer child caregiver to a significant other at home: No Do you presently have visiting nurse or other home services: Yes Unable to assess alcohol history related to: Unable to respond Alcohol intake: never Patient Tobacco Use Status: Former Tobacco user e-Cigarette/Vaping Use: Never Used Advance Directives Date on File: 08/29/22 service: No Current occupational status: retired Cognitive needs: No Hearing needs: Yes Vision needs: No Physical Exam 2 Vital Signs: Vital Signs: Last Vital Signs Temp 98.7 F 12/12/24 16:41 Pulse 94 12/12/24 16:41 Resp 16 12/12/24 16:41 BP 183/107 H 12/12/24 16:41 Pulse Ox 98 12/12/24 16:41 O2 Del Method Room Air 12/12/24 16:41 BMI result Body Mass Index 23.5 hypertensive, vitals otherwise wnl General: thin appearing, dried vomitus around mouth Skin: warm, dry, intact. No rashes or lesions. Head: Normocephalic, atraumatic. EENT: Conjunctiva clear. PERRLA. EOM intact. Moist mucous membranes.? Neck: Supple without LAD Cardiac: Chest wall symmetric. RRR Lungs: Normal respiratory effort without accessory muscle use. CTA bilaterally. no adventitious breath sounds. Abdomen: soft, non-tender, non-distended. No rebound tenderness or guarding. Positive BS x4. no cvat. Back: no midline spinous tenderness or step off Ext: Upper and lower extremities atraumatic, without tenderness, deformity, swelling or erythema. no pitting edema Neuro: alert, orient to person and place. Normal speech. chronic left sided weakness s/p CVA 2018 Course Course Course Narrative: CBC without leukocytosis. no anemia, h&h stable. chemistry without acute electrolyte abnormality requiring intervention. no xavi. liver function wnl. lipase wnl. negative covid, flu, rsv. cxr without evidence of pneumonia. head CT w/o bleed or mass. ct a/p shows retroperitoneal adenopathy, present on scans since 2021. enlarged prostate, consistent w/ current prostate cancer. he is also noted to have a new L2 compression fracture, age indeterminent. He does not have any midline spinous tenderness or step off. no neuro deficits. > UA obtained yesterday is positive for infection. he was treated w/ a dose of ceftriaxone and discharged w/ ceftin. he has not taken this PO medication as he was immediately brought back to ED on arrival home. will provide dose of Ceftin here in the meantime. repeat UA pending. > zofran given for nausea > his blood pressure has been gradually increasing since arrival. his last BP 162/118. he did not receive his BP meds yesterday or today. He takes metoprolol tartrate 25mg BID. will give him a dose of home metoprolol and recheck BP. CT head w/o hemorrhage. UA infected although improving. Patient has had no episodes of vomiting while in ED today. He is well appearing. abdominal exam is benign. His son feels he is at his baseline without any increased confusion. I discussed case with hospitalist, Dr. Harris - recommending one dose of ceftriaxone and 1L IVF while in ED. Patient does not meet criteria for admission at this time. Given new compression fracture, son is requesting PT/CM evaluation. Given his new compression fracture of unknown etiology, there is some question of metastatic spread from current prostate cancer. I have advised that they follow up with his oncologist for further testing/imaging to rule this out. Patient placed in physician observation at this time pending disposition. Reevaluation(s) Reevaluation #1: Case with case management patient has services at home, VNA. Patient to be discharged with antibiotics for UTI. He is not meeting criteria for inpatient admission. Educated patient on diagnosis and treatment plan, answered all question, patient verbalizes understanding. At this time patient will be discharged home, advised to return with new or worsening symptoms. Educated on worrisome signs and symptoms and when to return. At this time I feel comfortable discharge home. Time: 16:18 Medications Administered Discontinued Medications Generic Name Dose Route Start Last Admin Trade Name Freq PRN Reason Stop Dose Admin Acetaminophen 650 mg 12/12/24 01:14 12/12/24 02:12 Acetaminophen 325 Mg Tablet PO 12/12/24 01:15 650 mg ONCE ONE Administration Ceftriaxone Sodium 1 gm 12/11/24 23:00 12/11/24 23:06 Ceftriaxone Sodium 1 Gm Vial IVPUSH 1 gm Q24H DEONDRE Administration Sodium Chloride 1,000 mls @ 999 mls/hr 12/11/24 22:45 12/11/24 23:39 Ns IV 12/11/24 23:45 Infused .Q1H1M DEONDRE Infusion Metoprolol Tartrate 25 mg 12/11/24 19:36 12/11/24 19:52 Metoprolol Tartrate 25 Mg Tablet PO 12/11/24 19:37 25 mg ONCE ONE Administration Protocol Ondansetron HCl 4 mg 12/11/24 16:25 12/11/24 17:54 Ondansetron Odt 4 Mg Tab.Rapdis TRANSLINGU 12/11/24 16:26 4 mg ONCE ONE Administration Ondansetron HCl 4 mg 12/11/24 22:40 12/11/24 23:07 Ondansetron Hcl 4 Mg/2 Ml Vial IVPUSH 12/11/24 22:41 4 mg ONCE ONE Administration Medical Decision Making Medical Decision Making [facility] Narrative: 74 year old male with pmhx significant for HTN, HDL, dementia, recurrent UTIs, BPH, hemorrhagic CVA (2018), lumbar spinal stenosis, follicular lymphoma, and prostate cancer presents to the ED today for evaluation of vomiting. he is noted to be hypertensive, vitals are otherwise wnl. he is at his baseline - alert, oriented to person and place. he has residual left sided weakness s/p prior CVAs. no new neurologic findings. he does not appear acutely confused. he has dried vomitus around his mouth. lungs are cta and he is not in any respiratory distress. his abdomen is soft, ND/NT. there is no rebound or guarding. positive bs x4. no cvat. no open wounds/ lesions noted to skin. Differential diagnosis includes anemia, electrolyte abnormality, gastroenteritis, UTI. Unlikely suspicion for acute abdomen, bowel obstruction, pyelonephritis. unlikely ICH, CVA/TIA. plan for labs, ekg, imaging, re-evaluation. Differential Diagnosis Differential Diagnoses: The differential diagnosis associated with the presentation includes as above. Admission/Observation Consideration of admission/observation: Escalation of care including admission/observation considered admission considered - discussed w/ hospitalist dr. edwards - patient does not meet criteria for admission Consult Healthcare Provider Management of the patient was discussed with: Hospitalist (dr. harris) Lab Data [facility] Lab Attestation statement: I reviewed the patient's lab results. as above. 12/11/24 16:35 12/11/24 16:35 Labs: Lab Results 12/11/24 12/11/24 12/11/24 Range/Units 16:35 21:37 23:01 WBC 7.0 (4.8-10.8) X10*3/uL RBC 5.17 (4.60-5.80) X10*6/uL Hgb 14.9 (14.0-18.0) g/dl Hct 42.0 (42.0-52.0) % MCV 81.2 (80.0-98.0) fL MCH 28.8 (27.0-33.0) pg MCHC 35.5 (31.0-36.0) g/dl RDW 15.4 (11.0-16.0) % Plt Count 126 L (160-400) X10*3/uL MPV 9.4 (9.4-12.4) fL Immature Gran % (Auto) 0.3 (0.0-0.4) % Neut % (Auto) 87.7 H (45-73) % Lymph % (Auto) 6.7 L (20-40) % [place] % (Auto) 4.6 (2-11) % Eos % (Auto) 0.4 (0-4) % Baso % (Auto) 0.3 (0-2) % Lymph # (Auto) 0.5 L (1.2-4.9) X10*3/uL [place] # (Auto) 0.3 (0.1-1.2) X10*3/uL Eos # (Auto) 0.0 (0.0-0.4) X10*3/uL Baso # (Auto) 0.0 (0.0-0.2) X10*3/uL Abs Immat Gran (auto) 0.02 (0.00-0.03) X10*3/uL Absolute Neuts (auto) 6.2 (2.0-8.3) x10*3/uL Absolute Nucleated RBC 0.000 (0.0-0.012) X10*3/uL Nucleated RBC % (auto) 0.0 (0.0-0.2) /100WBC Sodium 144 (135-145) mmol/L Potassium 3.7 D (3.3-5.1) mmol/L Chloride 109 H (96-108) mmol/L Carbon Dioxide 25 (22-29) mmol/L Anion Gap 14 (12-20) BUN 14 (9-16) mg/dL Creatinine 0.96 (0.5-1.4) mg/dL Estim Creat Clear Calc 62.1 Estimated GFR > 60 Random Glucose 104 (60-115) mg/dL Lactic Acid 1.5 (0.5-2.0) mmol/L Calcium 9.3 D (8.4-10.2) mg/dL Magnesium 1.9 (1.6-2.6) mg/dL Total Bilirubin 0.9 (0.0-1.0) mg/dL AST 32 (5-37) U/L ALT 35 (0-40) U/L Alkaline Phosphatase 110 (39-117) U/L Ammonia 28 (13-55) umol/L B-Natriuretic Peptide 224 H (<100) pg/mL Total Protein 7.5 (6.5-8.0) g/dL Albumin 4.2 (3.5-5.0) g/dL Lipase 19 (8-78) U/L Urine Color Yellow Urine Appearance Clear Urine pH 7.0 (5.0-9.0) Ur Specific [place] 1.015 (1.005-1.025) Urine Protein Negative (Neg-Trace) mg/dL Urine Glucose (UA) Negative (Negative) mg/dL Urine Ketones Negative (Negative) mg/dL Urine Blood Trace H (Negative) Urine Nitrite Negative (Negative) Ur Leukocyte Esterase Large (3+) H (Negative) Urine RBC 6-10 H (0-2) /HPF Urine WBC >50 H (0-5) /HPF Ur Squamous Epith Cells 0-2 (0-2) /HPF Urine Bacteria None Seen (None Seen) Hyaline Casts 0-2 (0-2) /LPF Influenza Type A (PCR) NEGATIVE (Negative) Influenza Type B (PCR) NEGATIVE (Negative) RSV RNA Qual (PCR) NEGATIVE (Negative) SARS-CoV-2 RNA (RT-PCR) NEGATIVE (Negative) Independent Interpretation I performed an independent interpretation of an: EKG, Plain X-Ray and CT Scan Interpretation: CT head without intracranial bleed or mass CT a/p without bowel obstruction EKG showing NSR without acute ischemic changes or ST elevations CXR without infiltrate or consolidation Radiology Impression Radiologist Impression: Procedure(s): CT abdomen pelvis wo IV con Accession Number(s): [id number] cc: Physician,Unknown ; Tiesha Spence~ Report Number: [id number]: Total DLP = 842.34 mGy-cm CLINICAL HISTORY: vomiting, confusion, UTI CT abdomen and pelvis without contrast Comparison: 04/03/2023 Findings: Mild dependent changes of the lung bases. The liver demonstrates a bilobed, thinly septated cyst, benign and stable. The gallbladder, adrenal glands and pancreas are unremarkable. The spleen is unremarkable. No renal obstruction. Left renal cyst noted. No calculus the bladder is distended. Normal appendix. No bowel obstruction, free air, free fluid or abscess. There is diverticulosis without evidence of diverticulitis. Fecal retention in the rectosigmoid. Probable focus peristalsis or less likely colonic thickening involving the sigmoid on axial 67. The prostate gland is significantly enlarged. There is abnormal retroperitoneal adenopathy and retroperitoneal stranding, nonspecific No destructive bone lesion identified. There is an L2 compression fracture, new from prior there is a proximally 20% height loss. Impression: Similar-appearing retroperitoneal adenopathy and haziness, uncertain etiology. CT sampling may be possible if clinically indicated. There is a new compression fracture at L2, with mild superior endplate height loss, ultimately age indeterminate. Significant prostate gland enlargement. No definite acute process This document has been electronically signed by: Gigi Lr MD on 12/11/2024 19:12:04 Procedure(s): CT head/brain wo IV con Accession Number(s): [id number] cc: Physician,Unknown ; Tiesha Spence~ Report Number: [id number]: Total DLP = 767.35 mGy-cm CLINICAL HISTORY: vomiting, HTN, confusion CT head without contrast Comparison: CT/SR - CT HEAD/BRAIN WO IV CON - 08/18/24 06:30 EST Findings: No evidence of acute territorial infarct. There is prominent patchy low density in the periventricular and subcortical white matter. Diffuse volume loss is noted. No hydrocephalus. No hemorrhage, mass effect, mass lesion or midline shift. No abnormal extra-axial fluid. No calvarial fracture. Paranasal sinuses and mastoid air cells are clear. Impression: No evidence of acute process. Ischemic microangiopathy and diffuse volume loss. This document has been electronically signed by: Gigi Lr MD on 12/11/2024 19:00:18 Independent Historian Clinical information obtained from an independent historian. History obtained from or confirmed by: Other (son) External Record Review External record reviewed: Inpatient record, Office record, Outpatient record, Prior outpatient labs, Prior outpatient radiology, Primary care record and Outside ED record Prescription Management I considered prescription management with: Antibiotic and Other (zofran) Chronic Conditions Patient?s care impacted by: Cancer and Other (dementia) Social Determinants Patient?s care significantly limited by Social Determinants of Health including: Other Social Determinant of Health Critical Care Time Critical Care Time Critical Care Time: No Discharge Plan Discharge Clinical Impression: Urinary tract infection, Closed compression fracture of L2 vertebra Patient Disposition: Home, Self-Care Instructions: Urinary Tract Infection in Men (ED) Additional Instructions: Your work up today is reassuring. Your urine is positive for infection. You were treated with a dose of IV antibiotics and IV fluids. A 10 day course of ceftin, an antibiotic, was sent to your pharmacy this morning. Take this as prescribed, twice daily. Do not skip any doses. Take to completion. I have sent zofran, an anti-nausea medication, to your pharmacy. Take this as needed for nausea. Please follow up with outpatient providers. Return with new or worsening symptoms. In the case of an emergency call 911. Additional findings: Enlarged prostate on CT scan - please follow up with your urologist/ oncologist outpatient. Compression fracture at spinal level L2 - unclear when this occurred. You may take tylenol/ motrin at home for pain/ discomfort. Follow up with PCP. I have provided referral to neuro/talent specialist. Prescriptions: New ondansetron 4 mg tablet,disintegrating 4 mg PO DAILY PRN (Reason: nausea and vomiting) 5 Days Qty: 7 0RF cefuroxime axetil 250 mg tablet 250 mg PO BID 9 Days Qty: 18 0RF No Action (DME) Washable bed pad Medium See Rx Instructions .Route .MEDSUPPLY Qty: 10 0RF Rx Instructions: As directed (DME) Depend Underwear For Men [facility] See Rx Instructions .MEDSUPPLY Qty: 64 11RF Rx Instructions: As directed-size sm/med acetaminophen 325 mg Tablet 650 mg PO TID lidocaine 4 % Adhesive Patch,Medicated 1 patch TOPICAL DAILY Rx Instructions: to right shoulder metoprolol tartrate 25 mg Tablet 25 mg PO BID mirtazapine 7.5 mg Tablet 7.5 mg PO BEDTIME cephalexin 250 mg capsule 250 mg PO DAILY atorvastatin 40 mg tablet 40 mg PO DAILY Qty: 90 3RF finasteride 5 mg tablet 5 mg PO DAILY 90 Days Qty: 90 1RF Rx Instructions: Take medication alternating calendar months Referrals: Physician,Unknown J [Primary Care Provider] - 2 days Stand Alone Forms: Work/School Release Interventions: ED Discharge Assessment Last Done: 12/12/24 16:41 Discharge Date/Time: 12/12/24 16:47 Print Language: Montserratian
--- NOTE | 2024-12-11 16:13 | ECG_ITS ---
Test Reason : vomiting Blood Pressure : */* mmHG Vent. Rate : 66 BPM Atrial Rate : 66 BPM P-R Int : 182 ms QRS Dur : 76 ms QT Int : 418 ms P-R-T Axes : 70 -14 29 degrees QTcB Int : 438 ms Normal sinus rhythm with sinus arrhythmia Minimal voltage criteria for LVH, may be normal variant ( R in aVL ) Borderline ECG When compared with ECG of 10-Dec-2024 19:48, No significant change was found Referred By: Tiesha Spence Electronically Signed By: Narciso Wen
[2024-12-11 16:42] LABS: Hemoglobin 14.9 g/dl (14.0-18.0)
[2024-12-11 16:43] LABS: Imm Gran Abs Auto 0.02 X10*3/uL (0.00-0.03); Imm Gran Pct Auto 0.3 % (0.0-0.4); PLT CLUMP 1; SCAN SMEAR FLAG 1
[2024-12-11 16:44] LABS: Basophils Percent Auto 0.3 % (0-2); Eosinophils Percent Auto 0.4 % (0-4); Lymphocytes Absolute Auto 0.5 X10*3/uL (1.2-4.9); Lymphocytes Percent Auto 6.7 % (20-40); Mean Corpuscular HGB Conc 35.5 g/dl (31.0-36.0); Mean Corpuscular Hemoglobin 28.8 pg (27.0-33.0); Mean Corpuscular Volume 81.2 fL (80.0-98.0); Mean Platelet Volume 9.4 fL (9.4-12.4); Monocytes Absolute Auto 0.3 X10*3/uL (0.1-1.2); Monocytes Percent Auto 4.6 % (2-11); Neutrophils Absolute Auto 6.2 x10*3/uL (2.0-8.3); Neutrophils Percent Auto 87.7 % (45-73); Red Blood Count 5.17 X10*6/uL (4.60-5.80); Red Cell Distribution Width 15.4 % (11.0-16.0)
[2024-12-11 16:52] LABS: MANUAL DIFF FLAG NO; Platelet Count 126 X10*3/uL (160-400)
[2024-12-11 17:00] LABS: Lactic Acid 1.5 mmol/L (0.5-2.0)
[2024-12-11 17:07] LABS: Alanine Aminotransferase 35 U/L (0-40); Albumin Level 4.2 g/dL (3.5-5.0); Alkaline Phosphatase 110 U/L (39-117); Anion Gap 14 (12-20); Aspartate Amino Transferase 32 U/L (5-37); Bilirubin Total 0.9 mg/dL (0.0-1.0); Blood Urea Nitrogen 14 mg/dL (9-16); Calcium 9.3 mg/dL (8.4-10.2); Carbon Dioxide 25 mmol/L (22-29); Chloride 109 mmol/L (96-108); Creatinine Clr Calc Pharmacy 62.1; Estimated Glomerular Filt Rate > 60; Glucose Random 104 mg/dL (60-115); Lipase 19 U/L (8-78); Magnesium 1.9 mg/dL (1.6-2.6); Potassium 3.7 mmol/L (3.3-5.1); Sodium 144 mmol/L (135-145); Total Protein 7.5 g/dL (6.5-8.0)
[2024-12-11 17:27] LABS: Influenza A PCR NEGATIVE (Negative); Influenza B PCR NEGATIVE (Negative); Resp Syncy Virus RNA Qual PCR NEGATIVE (Negative); SARS COV2 PCR INHOUSE NEGATIVE (Negative)
[2024-12-11] MEDS: Ondansetron ODT 4 MG TAB.RAPDIS TRANSLINGU (17:54)
[2024-12-11 18:16] LABS: Ammonia 28 umol/L (13-55)
[2024-12-11 19:02] VITALS: BP 176/96; PULSE 82; RESP 19; TEMP 36.6; O2SAT 98
[2024-12-11 19:17] VITALS: BP 162/118; PULSE 96; RESP 20; TEMP 36.7; O2SAT 98
[2024-12-11 19:52] VITALS: BP 162/118; PULSE 96
[2024-12-11] MEDS: Metoprolol Tartrate 25 MG TABLET PO (19:52)
[2024-12-11 21:47] LABS: Appearance Urine Clear; Color Urine Yellow; Glucose Urine UA Negative (Negative); Leukocyte Esterase Urine Large (3+) (Negative); Nitrite Urine Negative (Negative); Specific Gravity - Urine 1.015 (1.005-1.025); UMIC TRIGGER UACC YES; Urine Blood Trace (Negative); Urine Ketones Negative (Negative); Urine Protein Negative (Neg-Trace)
[2024-12-11 21:52] LABS: Bacteria Urine None Seen (None Seen); Hyaline Casts Urine 0-2 /LPF (0-2); Squamous Epithelial Cell Urine 0-2 /HPF (0-2); UACC Culture Trigger YES; WBC Urine >50 /HPF (0-5)
[2024-12-11 22:17] VITALS: BP 165/93; PULSE 84; RESP 17; O2SAT 96
[2024-12-11] MEDS: 0.9 % Sodium Chloride 1,000 ML 999 ML IV (23:03)
[2024-12-11] MEDS: cefTRIAXone sodium 1 GM VIAL IVPUSH (23:06)
[2024-12-11] MEDS: ondansetron HCL 4 MG/2 ML VIAL IVPUSH (23:07)
[2024-12-11 23:26] LABS: B Type Natriuretic Peptide 224 pg/mL (<100)
[2024-12-12] MEDS: Acetaminophen 325 MG TABLET 650 MG PO (02:12)
[2024-12-12 05:49] VITALS: BP 158/78; PULSE 72; RESP 19; TEMP 36.7; O2SAT 98
[2024-12-12 08:02] VITALS: BP 175/106; PULSE 81; RESP 14; TEMP 36.6; O2SAT 98
[2024-12-12 09:22] VITALS: BP 164/104; PULSE 84; O2SAT 97
--- NOTE | 2024-12-12 10:01 | PHA.MEDREC ---
Pharmacy Consult ? Medication Reconciliation Pharmacy has completed the medication reconciliation. Reviewed med rec done by nursing. Patient was just seen here yesterday. Utilized discharge packet and pharmacy claims to double check med rec.
[2024-12-12 12:00] VITALS: BP 164/104; PULSE 84; RESP 18; TEMP 36.3; O2SAT 97
--- NOTE | 2024-12-12 12:04 | MHC.CM.ED ---
Addendum entered by Kristina Davila 12/12/24 15:35: Son is requesting BLS transport to home: Feliz arranged for a 4pm ED sweet pickle maker. Message left for son. Original Note: Pt not a reliable historian: call placed to pt's son/HCP Joseph. Joseph states pt has [facility] and does not want his father to return to a SNF. PT not able to evaluate pt d/t BP elevation. Joseph is requesting pt remain in the ED until tomorrow. Discussed with ED PA: pt is medically stable for d/c and will continue po antibiotics for UTI. Message left for Joseph to call ED back to make arrangements for pt to return to home with existing [facility]. Updated agency of pt's d/c.
[2024-12-12 16:40] VITALS: BP 183/107; PULSE 94; RESP 16; TEMP 37.1; O2SAT 98
[2024-12-12 16:41] VITALS: BP 183/107; PULSE 94; RESP 16; TEMP 37.1; O2SAT 98
== END 2024-12-12 16:47 | disposition home or self-care (01) ==
PROVIDERS: Physician Assistant Medical; Student in an Organized Health Care Education/Training Program; Emergency Provider Emergency Medicine
DX: N39.0 Urinary tract infection, site not specified (principal); M48.56XA Collapsed vertebra, not elsewhere classified, lumbar region, initial encounter for fracture; I49.8 Other specified cardiac arrhythmias; R11.2 Nausea with vomiting, unspecified; F03.90 Unspecified dementia, unspecified severity, without behavioral disturbance, psychotic disturbance, mood disturbance, and anxiety; I10 Essential (primary) hypertension; R10.2 Pelvic and perineal pain; R06.02 Shortness of breath; R26.81 Unsteadiness on feet; Z03.818 Encounter for observation for suspected exposure to other biological agents ruled out; Z79.899 Other long term (current) drug therapy; Z87.891 Personal history of nicotine dependence
CPT/HCPCS: 0241U; 36415; 70450; 71045; 74176; 80053; 81001; 82140; 83605; 83690; 83735; 83880; 85025; 87086; 93005; 96361; 96374; 96375; 97161; 97162; 99284; 99285; J0696; J2405

== ENCOUNTER → 2024-12-11 16:13 | Outpatient (BNV) | payer MEDICARE, MEDICAID, SELFPAY | PROVIDERS: Emergency Provider Emergency Medicine; Visit Provider Internal Medicine Cardiovascular Disease | DX: R11.10 Vomiting, unspecified (principal) | CPT/HCPCS: 93010 ==

== ENCOUNTER → 2024-12-11 16:20 | Outpatient (BNV) | payer MEDICARE, MEDICAID, SELFPAY | PROVIDERS: Emergency Provider Emergency Medicine; Visit Provider Radiology Vascular & Interventional Radiology | DX: N40.0 Benign prostatic hyperplasia without lower urinary tract symptoms (principal); I67.82 Cerebral ischemia; R11.10 Vomiting, unspecified; R41.0 Disorientation, unspecified | CPT/HCPCS: 70450; 71045; 74176 ==

== ENCOUNTER → 2024-12-24 23:59 | Outpatient (BNV) | payer MEDICARE, MEDICAID, SELFPAY | PROVIDERS: PCP Internal Medicine; Visit Provider Internal Medicine | DX: N39.0 Urinary tract infection, site not specified (principal); N17.9 Acute kidney failure, unspecified; N40.0 Benign prostatic hyperplasia without lower urinary tract symptoms | CPT/HCPCS: G0180 ==

== ENCOUNTER 2025-01-21 13:49 | Outpatient (AMB) | payer MEDICARE, MEDICAID, SELFPAY ==
[2025-01-21 13:54] VITALS: BP 104/66; PULSE 83; RESP 18; TEMP 36.8; O2SAT 99; BMI 24.3
--- NOTE | 2025-01-21 13:54 | MHC.PC.OV ---
Vital Signs 01/21/25 13:54 Height 5 ft 7 in Weight 155 lb BMI 24.3 BP 104/66 Blood Pressure Location Lt brachial Position Sitting Respiration 18 Pulse 83 Pulse Source Pulse Oximeter Temp 98.2 F Temp Source Oral Pulse Oximetry (%) 99 Oxygen Delivery Method Room Air Intake Visit Reasons: general health Intake Note: Pt is here today for a follow up visit. Allergies No Known Allergies [No Known Allergies*] Allergy (Verified 01/21/25 13:56) Medication List - Last Reconciled 01/21/25 by Esthela Carrillo MD acetaminophen 650 mg PO TID atorvastatin 40 mg PO DAILY Depend Underwear For Men SmShane (diaper,brief,adult,disposable) As directed-size sm/med NS finasteride 5 mg PO DAILY 90 days folic acid 1 mg PO DAILY lidocaine 4% 1 patch topical DAILY metoprolol tartrate 25 mg PO BID mirtazapine 7.5 mg PO BEDTIME ondansetron 4 mg PO DAILY PRN 5 days [Washable bed pad As directed] Tobacco use date assessed: 02/10/24 Fall risk assessment: 2 + Falls in past year Last assessed Fall Risk: 01/21/25 Dental Screening Dental Screen Date: 01/21/25 Did you have a dental visit in the last 12 months?: No Did you have a dental problem in the last 6 months where you did not have access to dental care?: No Was dental information given to patient?: Patient declined [facility] Medical History Acute UTI Thrombocytopenia History of CVA (cerebrovascular accident) History of CVA (cerebrovascular accident) Syncope Hypertension Hearing loss Recurrent UTI Annual physical exam Hyperglycemia BPH (benign prostatic hyperplasia) Hyperlipidemia Abnormal computed tomography angiography (CTA) Dementia Lumbar spinal stenosis CVA (cerebral vascular accident) HTN (hypertension) Follicular lymphoma Surgical History No pertinent past surgical history H/O colonoscopy Family History Father Colon cancer HTN (hypertension) Brother Non-Hodgkin lymphoma HTN (hypertension) Sister HTN (hypertension) Mother HTN (hypertension) TIA (transient ischemic attack) Social History Household Members: Children Household Members Other:: He mentioned 2 dogs and a person, but not answering now. Housing: House Housing Other:: Unsure if this is correct. Are you a primary manager critical care unit to a significant other at home: No Do you presently have visiting nurse or other home services: Yes Unable to assess alcohol history related to: Unable to respond Alcohol intake: never Patient Tobacco Use Status: Former Tobacco user e-Cigarette/Vaping Use: Never Used Advance Directives Date on File: 08/29/22 service: No Current occupational status: retired Cognitive needs: No Hearing needs: Yes Vision needs: No Questionnaire PHQ-9 Over the last 2 weeks, how often have you been bothered by any of the following problems? 1. Little interest or pleasure in doing things: not at all 2. Feeling down, depressed, or hopeless: not at all 3. Trouble falling or staying asleep, or sleeping too much: not at all 4. Feeling tired or having little energy: not at all 5. Poor appetite or overeating: not at all 6. Feeling bad about yourself - or that you are a failure or have let yourself or your family down: not at all 7. Trouble concentrating on things, such as reading the newspaper or watching television: not at all 8. Moving or speaking so slowly that other people could have noticed. Or the opposite - being so fidgety or restless that you have been moving around a lot more than usual: not at all 9. Thoughts that you would be better off or of hurting yourself in some way: not at all Total score: 0 Depression Screening Interpretation: Negative Depression Screening Done: Yes 96695 - PHQ-9 Billing: Yes Source: Developed by Drs. Jose Manuel Acosta, Perla Kerr, Terence Lorenzana and colleagues, with an educational kamaljit from [employer]. Thrive Questionnaire Date Thrive assessed: 08/19/24 AUDIT C Alcohol Use Questionnaire (AUDIT-C) 1. How often do you have a drink containing alcohol?: Never 3. How often do you have six or more drinks on one occasion?: Never Total Score: 0 RUBENS-7 AMB Questionnaire RUBENS-7 Date RUBENS - 7 assessed: 01/21/25 Feeling nervous, anxious, or on edge: 0 = Not at all Not being able to stop or control worryin = Not at all Worrying too much about different things: 0 = Not at all Trouble relaxin = Not at all Being so restless that it is hard to sit still: 0 = Not at all Becoming easily annoyed or irritable: 0 = Not at all Feeling afraid as if something awful might happen: 0 = Not at all Total RUBENS-7 score (0-4 normal; 5-9 mild; 10-14 moderate; 15-21 severe): 0 Source: Developed by Drs. Jose Manuel Acosta, Perla Kerr, Terence Lorenzana and colleagues, with an educational kamaljit from [employer]. RUBENS-7 Assessment Billing RUBENS-7 Assessment Tool: RUBENS-7 Assessment 14774 Physical exam (Primary Care) Vital Signs: Last Vital Signs Temp 98.2 F 01/21/25 13:54 Pulse 83 01/21/25 13:54 Resp 18 01/21/25 13:54 BP 104/66 01/21/25 13:54 Pulse Ox 99 01/21/25 13:54 Oxygen Delivery Method Room Air 01/21/25 13:54 BMI result Body Mass Index 24.3 Tobacco/Smoking Status: Tobacco use Status Tobacco use date assessed 02/10/24 01/21/25 14:03 Patient Tobacco Use Status Former Tobacco user 01/21/25 14:03 Tobacco use type 08/11/21 15:04 e-Cigarette/Vaping Use Never Used 01/21/25 14:03 PHQ-9: PHQ-9 Score PHQ-9: Total score 0 01/21/25 14:03 Depression Screening Interpretation: Negative Thrive Assessment: Date of Thrive Assessment Date Thrive assessed 08/19/24 01/21/25 14:03 Coding Additional Codes RUBENS-7 Assessment Billing - RUBENS-7 Assessment Tool: RUBENS-7 Assessment 24543 ([id number]) PHQ-9 - 93287 - PHQ-9 Billing: Yes ([id number]) Assessment & Plan Assessment & Plan Medications: New metoprolol tartrate 25 mg PO BID 180 tabs 3RF folic acid 1 mg PO DAILY 90 tabs 2RF triamcinolone acetonide 0.025% 1 appl topical DAILY 80 grams 1RF Changed From finasteride Take medication alternating calendar months 5 mg PO DAILY 90 days 90 tabs 1RF N40.1 - Benign prostatic hyperplasia with lower urinary tract symptoms, R33.9 - Retention of urine, unspecified To finasteride 5 mg PO DAILY 90 days 90 tabs 3RF N40.1 - Benign prostatic hyperplasia with lower urinary tract symptoms, R33.9 - Retention of urine, unspecified Refilled atorvastatin 40 mg PO DAILY 90 tabs 3RF
--- NOTE | 2025-01-21 14:28 | A.OFFVIS_ITS ---
Intake Vital Signs 01/21/25 13:54 01/21/25 14:30 Height 5 ft 7 in Weight 155 lb BMI 24.3 24.3 BP 104/66 Blood Pressure Location Lt brachial Position Sitting Respiration 18 Pulse 83 Pulse Source Pulse Oximeter Temp 98.2 F Temp Source Oral Pulse Oximetry (%) 99 Oxygen Delivery Method Room Air Intake Visit Reasons: general health Intake Note: Pt is here today for AWV. Allergies No Known Allergies [No Known Allergies*] Allergy (Verified 01/21/25 13:56) Medication List - Last Reconciled 01/21/25 by Esthela Carrillo MD acetaminophen 650 mg PO TID atorvastatin 40 mg PO DAILY Depend Underwear For Men Sm-Md (diaper,brief,adult,disposable) As directed-size sm/med NS finasteride 5 mg PO DAILY 90 days folic acid 1 mg PO DAILY lidocaine 4% 1 patch topical DAILY metoprolol tartrate 25 mg PO BID mirtazapine 7.5 mg PO BEDTIME ondansetron 4 mg PO DAILY PRN 5 days [Washable bed pad As directed] HPI HPI Comments History of Present Illness Details Initiated the conversation about Advanced Directives. Advanced Directives help? patients prepare for current and future decisions about their medical treatment? and place of care. Discussed with patient that it is a process where a patients? current condition and prognosis are reviewed, their wishes for information? regarding their illness are elicited, and likely medical dilemmas are presented? and options discussed. The form can be amended as needed, reviewed yearly and? make changes as needed IPPE/AWV ? year old presents? for her ? Annual? Wellness Visit, initial visit.? Medical / Social History Reviewed? Past Medical History ?Yes? . ? [place]? of Care / Care Team list updated ?Yes . ? Surgical/Hospitalization? History ?Yes . ? Current Medications? (including OTC and supplements) ?Yes . ? Family History ?Yes? . ? Tobacco? Control form ?Yes . ? AUDIT-C (Alcohol use) form? ?Yes . ? Illicit drug use in Social? History ?Yes . ? Current diagnosis of? depression? ?No ? Appropriate PHQ2/PHQ9? completed ?Yes . ? Data entered by ?Medical? Machine Bookkeeper and reviewed by provider ? Fall Risk ? Fall? History? Have you had any falls with? injury in the past year? ?No . ? Have you had two or more? falls in the past year? ?No . ? Fall Risk Assessment: ?No? falls in the past year . ? HRA filled out by? the patient, reviewed by Provider and scanned. ? IPPE/AWV ? Balance? [place]? ?Yes . ? Tandem? walk ?Yes . ? Walk and? Turn ?Yes . ? Rise from? sit to stand ?Yes . ?Vision? Corrective? lens ?Yes ? Vision? screen ? Up-to-date, has an appointment [] for vision? screening and glaucoma screening ?Hearing? Whisper? test ?pass .? Initiated the conversation about Advanced Directives. Advanced Directives help? patients prepare for current and future decisions about their medical treatment? and place of care. Discussed with patient that it is a process where a patients? current condition and prognosis are reviewed, their wishes for info rmation? regarding their illness are elicited, and likely medical dilemmas are presented? and options discussed. The form can be amended as needed, reviewed yearly and? make changes as needed Written? Plan?Completed. See Patient? Documents. [facility] Medical History (Updated 01/21/25 @ 15:05 by Esthela Carrillo MD) Prostate cancer Acute UTI Thrombocytopenia History of CVA (cerebrovascular accident) History of CVA (cerebrovascular accident) Syncope Hypertension Hearing loss Recurrent UTI Annual physical exam Hyperglycemia BPH (benign prostatic hyperplasia) Hyperlipidemia Abnormal computed tomography angiography (CTA) Dementia Lumbar spinal stenosis CVA (cerebral vascular accident) HTN (hypertension) Follicular lymphoma Surgical History No pertinent past surgical history H/O colonoscopy Family History Father Colon cancer HTN (hypertension) Brother Non-Hodgkin lymphoma HTN (hypertension) Sister HTN (hypertension) Mother HTN (hypertension) TIA (transient ischemic attack) Social History Household Members: Children Household Members Other:: He mentioned 2 dogs and a person, but not answering now. Housing: House Housing Other:: Unsure if this is correct. Are you a primary youth care professional to a significant other at home: No Do you presently have visiting nurse or other home services: Yes Unable to assess alcohol history related to: Unable to respond Alcohol intake: never Patient Tobacco Use Status: Former Tobacco user e-Cigarette/Vaping Use: Never Used Advance Directives Date on File: 08/29/22 service: No Current occupational status: retired Cognitive needs: No Hearing needs: Yes Vision needs: No Questionnaire Medicare Wellness Checkup [age] What gender do you identify with?: male During the past 4 weeks, how much have you been bothered by emotional problems such as feeling anxious, depressed, irritable, sad or downhearted, and blue?: moderately During the past 4 weeks, has your physical & emotional health limited your social activities with family, friends, neighbors, or groups?: extremely During the past 4 weeks, how much bodily pain have you generally had?: moderate pain During the past 4 weeks, was someone available to help you if you needed & wanted help?: yes, quite a bit During the past 4 weeks, what was the hardest physical activity you could do for at least 2 minutes?: very light Can you get to places out of walking distance without help? (For eg., can you travel alone on buses, taxis or drive your car?): No Can you go shopping for groceries or clothes without someone's help?: No Can you prepare your own meals?: No Can you do your housework without help?: No Because of any health problems, do you need the help of another person with your personal care needs such as eating, bathing, dressing or getting around the house?: Yes Can you handle your own money without help?: No During the past 4 weeks, how would you rate your health in general?: fair During the past 4 weeks how have things been going for you?: pretty bad Are you having difficulties driving your car?: not applicable, I don't use a car Do you always fasten your seat belt when you are in a car?: yes, usually During past 4 weeks, have you been bothered by the following: never: Sexual problems? and Trouble eating well?, sometimes: Falling or dizzy when standing up, often: Teeth or denture problems? and always: Problems using the telephone? and Tiredness or fatigue? Have you fallen 2 or more times in the past year?: Yes Are you afraid of falling?: Yes Are you a smoker?: no During the past 4 weeks, how many drinks of wine, beer, or other alcoholic beverages did you have?: no alcohol at all Do you exercise for about 20 minutes 3 or more times a week?: no, I usually do not exercise this much Have you been given information to help with the following?: yes: Hazards in your house that might hurt you? and yes: Keeping track of your medications? How often do you have trouble taking medicines the way you have been told to take them?: I always take medicine as prescribed How confident are you that you can control & manage most of your health problems?: not very confident What is your race?: White Mini Mental State Exam (MMSE) Orientation What is the (year) (season) (date) (day) (month)?: year and season Where are we (state) (county) (town or city) (hospital) (floor)?: state and county Registration Name of 3 unrelated objects clearly and slowly, then ask patient to repeat all 3 of them. (1st repeat determines score. Make sure they can repeat all three): object 1 Attention & Calculation (CHOOSE ONE) Spell WORLD backwards (DLROW): 1 letter Language Show patient a wristwatch & ask what it is. Repeat for pencil.: watch (Patient refused) Ask the patient to repeat the phrase 'No ifs, ands, or buts' after you.: incorrect (Patient refused) Score Score: 7 PHQ-9 Over the last 2 weeks, how often have you been bothered by any of the following problems? 1. Little interest or pleasure in doing things: not at all 2. Feeling down, depressed, or hopeless: not at all 3. Trouble falling or staying asleep, or sleeping too much: not at all 4. Feeling tired or having little energy: not at all 5. Poor appetite or overeating: not at all 6. Feeling bad about yourself - or that you are a failure or have let yourself or your family down: not at all 7. Trouble concentrating on things, such as reading the newspaper or watching television: not at all 8. Moving or speaking so slowly that other people could have noticed. Or the opposite - being so fidgety or restless that you have been moving around a lot more than usual: not at all 9. Thoughts that you would be better off or of hurting yourself in some way: not at all Total score: 0 Depression Screening Interpretation: Negative Depression Screening Done: Yes 58581 - PHQ-9 Billing: Yes Source: Developed by Drs. Jose Manuel Acosta, Perla Kerr, Terence Lorenzana and colleagues, with an educational kamaljit from [employer]. Review of Systems Const All systems reviewed & are unremarkable except as noted in HPI and below Eyes Reports no additional complaints ENT Reports no additional complaints Card Reports no additional complaints Resp Reports no additional complaints GI Reports no additional complaints Reports no additional complaints Musc Reports no additional complaints Physical Exam Vital Signs: Last Vital Signs Temp 98.2 F 01/21/25 13:54 Pulse 83 01/21/25 13:54 Resp 18 01/21/25 13:54 BP 104/66 01/21/25 13:54 Pulse Ox 99 01/21/25 13:54 Oxygen Delivery Method Room Air 01/21/25 13:54 BMI result Body Mass Index 24.3 Const General: no acute distress HEENT Head: Yes normal to inspection Neck Neck: Yes no lymphadenopathy and Yes supple Resp Effort & Inspection: normal respiratory effort Auscultation: clear to auscultation bilaterally Cardio Rhythm: regular rhythm Heart sounds: S1 normal heart sound present and S2 normal heart sound present GI Inspection: Yes normal to inspection Palpation (GI): Soft to palpation Percussion: Yes normal to percussion Extrem General: Yes no clubbing, cyanosis or edema Assessment & Plan Assessment & Plan (1) Hyperlipidemia: Code(s): E78.5 - Hyperlipidemia, unspecified Plan: Continue atorvastatin (2) Prostate cancer: Comment: December 2019 favorable intermediate risk, status post prostatectomy, chronic urinary incontinence, f/u with urology Code(s): C61 - Malignant neoplasm of prostate Plan: Follow-up with Urology, finasteride (3) Dementia: Comment: Negative neuro workup at [facility] including MRI MRA lumbar puncture Code(s): F03.90 - Unspecified dementia, unspecified severity, without behavioral disturbance, psychotic disturbance, mood disturbance, and anxiety Plan: Continue home physical therapy (4) Annual physical exam: Code(s): Z00.00 - Encounter for general adult medical examination without abnormal findings Plan: Well-balanced diet discussed with the patient and his son. Increase physical activity as tolerated discussed. Medications: New metoprolol tartrate 25 mg PO BID 180 tabs 3RF folic acid 1 mg PO DAILY 90 tabs 2RF triamcinolone acetonide 0.025% 1 appl topical DAILY 80 grams 1RF Changed From finasteride Take medication alternating calendar months 5 mg PO DAILY 90 days 90 tabs 1RF N40.1 - Benign prostatic hyperplasia with lower urinary tract symptoms, R33.9 - Retention of urine, unspecified To finasteride 5 mg PO DAILY 90 tabs 3RF 90 days N40.1 - Benign prostatic hyperplasia with lower urinary tract symptoms, R33.9 - Retention of urine, unspecified Refilled atorvastatin 40 mg PO DAILY 90 tabs 3RF Quality Reporting (2019) Depression/Bipolar (159/160/161/177) PHQ-9: Total score: 0 Coding Level of Care Code Medicare Subsequent (G0439) Diagnoses Hyperlipidemia E78.5 Prostate cancer C61 Dementia F03.90 Annual physical exam Z00.00 CPT Codes Advance Care Planning - Advance Care Planning discussion: On file, no changes ([id number]) Advance Care Planning - Time spent: 1-15 minutes, on File ([id number]) Additional Codes PHQ-9 - 92115 - PHQ-9 Billing: Yes ([id number]) Advance Care Planning Advance Care Planning discussion: On file, no changes Forms completed: Health Care Proxy Time spent: 1-15 minutes, on File Did not discuss due to Cultural/Spiritual beliefs: Yes
[2025-01-21 14:30] VITALS: BMI 24.3
--- OUTSIDE RECORDS SUMMARY | 2025-01-21 16:03 | XMS_ITS | Encounter Summary ---
Author Organization [facility] Address [address] [place] [address] Care Team Providers Care Talent Analyst Name Role Phone Phill Uribe MD Primary Care Provider [phone] Encounter Details Date Type Department Care Team (Late st Contact Info) Description 10/10/2024 Lab Requisition [facility] - Main Lab [address] [place] [address] Nabeel Toribio MD [address] [place] [id number] Hyperlipidemia, unspecified; Thrombocytopenia, unspecified (CMS/HCC V24) Social History Tobacco Use Types Packs/Day Years Used Date Smoking Tobacco: Never Assessed Sex and Gender Information Value Date Recorded Sex Assigned at Not on file Legal Sex Male 4:41 AM EST Gender Identity Not on file Sexual Orientation Not on file documented as of this encounter Plan of Treatment Not on file documented as of this encounter Procedures Procedure Name Priority Date/Time Associated Diagnosis Comments COMPLETE BLOOD COUNT Routine 10/10/2024 7:37 AM EST Hyperlipidemia, unspecified Thrombocytopenia, unspecified (CMS/HCC) COMPREHENSIVE METABOLIC PANEL Routine 10/10/2024 7:37 AM EST Hyperlipidemia, unspecified Thrombocytopenia, unspecified (CMS/HCC) documented in this encounter Results * (ABNORMAL) Comprehensive metabolic panel (10/10/2024 7:37 AM EST) Sodium 141 133 - 145 mmol/L LAB CHEMISTRY METHOD 10/10/2024 9:24 AM EST [facility] Potassium 3.7 3.5 - 5.5 mmol/L LAB CHEMISTRY METHOD 10/10/2024 9:24 AM EST [facility] Chloride 111(H) 96 - 110 mmol/L LAB CHEMISTRY METHOD 10/10/2024 9:24 AM [facility] CO2 26 21 - 32 mmol/L LAB CHEMISTRY METHOD 10/10/2024 9:24 AM [facility] Anion Gap 4 3 - 11 LAB CHEMISTRY METHOD 10/10/2024 9:24 AM [facility] Glucose 86 70 - 100 mg/dL LAB CHEMISTRY METHOD 10/10/2024 9:24 AM [facility] BUN 20 5 - 25 mg/dL LAB CHEMISTRY METHOD 10/10/2024 9:24 AM [facility] Creatinine 1.03 0.70 - 1.30 mg/dL LAB CHEMISTRY METHOD 10/10/2024 9:24 AM [facility] eGFR 76 >=60 mL/min/1. 73m2 LAB CHEMISTRY METHOD 10/10/2024 9:24 AM [facility] Comment:Calculation based on the??Chronic Kidney Disease Epidemiology Collaboration (CKD-EPI) equation refit??without adjustment for race. BUN/Creatinine Ratio 19.4 LAB CHEMISTRY METHOD 10/10/2024 9:24 AM [facility] Calcium 8.5 8.5 - 10.5 mg/dL LAB CHEMISTRY METHOD 10/10/2024 9:24 AM [facility] AST (SGOT) 92(H) 10 - 42 unit/L LAB CHEMISTRY METHOD 10/10/2024 9:24 AM [facility] ALT (SGPT) 131(H) 10 - 60 unit/L LAB CHEMISTRY METHOD 10/10/2024 9:24 AM [facility] Alkaline Phosphatase 85 42 - 121 unit/L LAB CHEMISTRY METHOD 10/10/2024 9:24 AM [facility] Total Protein 6.2 6.0 - 8.0 g/dL LAB CHEMISTRY METHOD 10/10/2024 9:24 AM [facility] Albumin 3.4 3.2 - 5.0 g/dL LAB CHEMISTRY METHOD 10/10/2024 9:24 AM EST [facility] Total Bilirubin 0.7 0.0 - 1.4 mg/dL LAB CHEMISTRY METHOD 10/10/2024 9:24 AM [facility] Blood Venous blood specimen / Unknown Venipuncture / Unknown 10/10/2024 7:37 AM EST 10/10/2024 8:21 AM EST us Nabeel Toribio MD LAB BLOOD ORDERABLES Final Resu lt [facility] [address] [place] [address], * (ABNORMAL) Complete blood count (10/10/2024 7:37 AM EST) WBC 5.9 4.8 - 10.8 K/mcL LAB HEMETOLOGY METHOD 10/10/2024 8:57 AM [facility] RBC 5.10 4.50 - 5.50 M/[facility] LAB HEMETOLOGY METHOD 10/10/2024 8:57 AM [facility] Hemoglobin 14.7 13.5 - 17.5 g/dL LAB HEMETOLOGY METHOD 10/10/2024 8:57 AM [facility] Hematocrit 43.6 42.0 - 54.0 % LAB HEMETOLOGY METHOD 10/10/2024 8:57 AM [facility] MCV 84.8 79.0 - 98.0 FL LAB HEMETOLOGY METHOD 10/10/2024 8:57 AM [facility] MCH 28.6 27.0 - 32.0 pcg LAB HEMETOLOGY METHOD 10/10/2024 8:57 AM [facility] MCHC 33.7 32.0 - 37.0 g/dL LAB HEMETOLOGY METHOD 10/10/2024 8:57 AM EST [facility] RDW 15.1(H) 11.0 - 15.0 % LAB HEMETOLOGY METHOD 10/10/2024 8:57 AM EST [facility] Platelets 128(L) 130 - 400 K/mcL LAB HEMETOLOGY METHOD 10/10/2024 8:57 AM EST [facility] MPV 11.0 7.0 - 11.0 FL LAB HEMETOLOGY METHOD 10/10/2024 8:57 AM EST [facility] NRBC 0.0 <1.0 % LAB HEMETOLOGY METHOD 10/10/2024 8:57 AM [facility] NRBC Absolute 0.00 <0.10 K/mcL LAB HEMETOLOGY METHOD 10/10/2024 8:57 AM [facility] Blood Venous blood specimen / Unknown Venipuncture / Unknown 10/10/2024 7:37 AM EST 10/10/2024 8:21 AM EST us Nabeel Toribio MD LAB BLOOD ORDERABLES Final Resu lt [facility] [address] [place] [address], documented in this encounter Visit Diagnoses Diagnosis Hyperlipidemia, unspecified Thrombocytopenia, unspecified (CMS/HCC V24) Thrombocytopenia, unspecified documented in this encounter Care Teams Talent Analyst Relationship Specialty Start Date End Date Phill Uribe MD [address] [place] [address] [address] [place] [address] PCP - General Geriatric Medicine 09/04/24 documented as of this encounter
--- OUTSIDE RECORDS SUMMARY | 2025-01-21 16:03 | XMS_ITS | Continuity of Care Document ---
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 - Active 10/22/24: New med. Started at [facility]. metoprolol tartrate 50 mg tablet Take half tablet (25mg) by mouth twice daily. - Active 08/04/24: Reduced dose. Imodium A-D 2 mg tablet NEEDED: Take 2 tablets by mouth after 1st loose stool and 1 tablet (2 mg) after each next bowel movement; do not exceed 16 mg in 24hrs. - Active Florastor 250 mg capsule Take 1 capsule by mouth once daily. - Active 09/03/24: New medication. cephalexin 250 mg capsule Take 1 capsule by mouth once daily for UTI prophylaxis. - Active 09/03/24: New script for UTI prophylaxis. Fiber-Caps (psyllium husk) 0.52 gram capsule Take 1 capsule once daily by mouth. - Active 07/10/24: New medication. Bulking agent to help with diarrhea. lidocaine 4 % topical patch Apply to low back once daily. 12 hours on/12 hours off. - Active atorvastatin 40 mg tablet Take 1 tablet by mouth once daily. - Active Per pre-enrollment. finasteride 5 mg tablet Take 1 tablet by mouth once daily at bedtime. - Active Per pre-enrollment. Advance Directives Directive Yes / No Effective Date File Name No Information Encounters Encounter Description Practice Location Reason(s) For Visit Diagnoses Date Provider [facility], [address], [id number], tel:[phone] [place] No Information 5 Pitsiladis Edilia. [address] [place], [place], [id number], [place]. tel:[phone] [facility], [address], [id number], tel:[phone] [place] [facility] Follow-up (chief complaint) Cerebrovascular small vessel diseaseModerate vascular dementia without behavioral disturbance, psychotic disturbance, mood disturbance, or anxietyArthritis of right shoulderSpinal stenosis of lumbar region without neurogenic claudication 5 Pitsiladis Edilia. [address], [id number], [place]. tel:[phone] [facility], [address], [id number], [place] tel:[phone] [facility] [place] [facility] Follow-up (chief complaint) Moderate vascular dementia without behavioral disturbance, psychotic disturbance, mood disturbance, or anxietyCerebrovascular small vessel diseaseArthritis of right shoulderHemiparesis affecting left side as late effect of cerebrovascular accident (CVA) 5 Pitsiladis Edilia. [address] [place], [place], [id number], [place]. tel:[phone] [facility], [address], [id number], [place] tel:[phone] [place] [facility] Follow-up (chief complaint) Moderate vascular dementia without behavioral disturbance, psychotic disturbance, mood disturbance, or anxietyCerebrovascular small vessel diseaseSpinal stenosis of lumbar region without neurogenic claudicationHemiparesis affecting left side as late effect of cerebrovascular accident (CVA) 5 Pitsiladis Edilia. [address] [place], [id number], [place]. tel:[phone] [facility], [facility], [place], [place], [id number], [place] tel:[phone] [place] [place] [facility] Follow-up (chief complaint) Recurrent depressionModerate vascular dementia without behavioral disturbance, psychotic disturbance, mood disturbance, or anxietyCerebrovascular small vessel diseaseHemiparesis affecting left side as late effect of cerebrovascular accident (CVA)Spinal stenosis of lumbar region without neurogenic claudication 5 Pitsiladis Edilia. [address] [facility] [place], [id number], [place]. tel:[phone] [facility], [address] [facility] [address], [place], [place], [id number], [place] tel:[phone] [place] No Information 5 Darrell Galeas. [address] [facility] [place], [id number], [place]. tel:[phone] [facility], [address] [facility] [facility], [place], [place], [id number], [place] tel:[phone] [place] No Information 5 Pitsiladis Edilia. [address], [place], [place], [id number], [place]. tel:[phone] [facility], [address] [facility] [address], [place], [place], [id number], [place] tel:[phone] [facility] [place] [facility] Follow-up (chief complaint) Recurrent depressionHemiparesis affecting left side as late effect of cerebrovascular accident (CVA)Moderate vascular dementia without behavioral disturbance, psychotic disturbance, mood disturbance, or anxietyCerebrovascular small vessel disease 5 Pitsiladis Edilia. [address] [place], [id number], [place]. tel:[phone] [facility], [address] [facility] [address], [place], [place], [id number], [place] tel:[phone] [facility] [place] [facility] Follow-up (chief complaint) Acute metabolic encephalopathyHemipares is affecting left side as late effect of cerebrovascular accident (CVA) 5 Jonah Aqib. [address] [place], [place], [id number], [place]. tel:[phone] [facility], [facility], [place], [place], [id number], [place] tel:[phone] [facility] Follow-up (chief complaint) Metabolic encephalopathyHemiplegi a and hemiparesis following cerebral infarction affecting left non-dominant side 5 Jonah Aqib. [address] [place], [place], [id number], [place]. tel:[phone] [facility], [address] [facility] [address], [place], [place], [id number], [place] tel:[phone] [facility] Admit (chief complaint) Recurrent depressionHyperlipidemi a, unspecified hyperlipidemia typeHypertensive chronic kidney disease with stage 1 through stage 4 chronic kidney disease, or unspecified chronic kidney diseaseStage 3a chronic kidney diseaseHistory of recurrent UTIsBPH associated with nocturiaNocturiaProstat e cancerImmunocompromised stateHemiparesis affecting left side as late effect of cerebrovascular accident (CVA)Moderate vascular dementia without behavioral disturbance, psychotic disturbance, mood disturbance, or anxietyCerebrovascular small vessel diseaseAcute metabolic encephalopathySpinal stenosis of lumbar region without neurogenic claudication 5 Michael Yeboah. [address] [place], [place], [id number], [place]. tel:[phone] [facility], [address] [facility] [address], [place], [place], [id number], [place] tel:[phone] [place] Other abnormalities of gait and mobility 5 Yoon Santos. [address] [place], [address]. tel:[phone] [facility], [facility], [place], [place], [id number], [place] tel:[phone] [place] Alteration in performance of activities of daily livingMuscle weakness (generalized) 5 Karen Dominique. [address] [place], [place], [id number], [place]. tel:[phone] [facility], [address] [facility], [place], [place], [id number], [place] tel:[phone] [place] Alteration in performance of activities of daily livingMuscle weakness (generalized) 5 Karen Dominique. [address] [place], [place], [id number], [place]. tel:[phone] [facility], [facility], [place], [place], [id number], [place] tel:[phone] [place] Difficulty in walkin g, not elsewhere classified 5 Yoon Tom. [address], [place], [address]. tel:[phone] [facility], [address] [facility] [address], [place], [place], [id number], [place] tel:[phone] [place] Acute Visit (chief complaint) Hemiparesis affecting left side as late effect of cerebrovascular accident (CVA)Recurrent depressionHyperlipidemi a, unspecified hyperlipidemia typeHypertensive chronic kidney disease with stage 1 through stage 4 chronic kidney disease, or unspecified chronic kidney diseaseStage 3a chronic kidney diseaseProstate cancerModerate vascular dementia without behavioral disturbance, psychotic disturbance, mood disturbance, or anxietyCerebrovascular small vessel diseaseImmunocompromise d state 5 Pitsiladis Edilia. [address] [place], [place], [id number], [place]. tel:[phone] [facility], 1 [facility], [place], [place], [id number], [place] tel:[phone] [place] No Information 5 Jonah Aqib. [address] [place], [place], [id number], [place]. tel:[phone] [facility], 1 [facility], [place], [place], [id number], [place] tel:[phone] [place] Other lack of coordination 5 Karen Fox. [address] [place], [place], [id number], [place]. tel:[phone] [facility], [address], [place], [place], [id number], [place] tel:[phone] [place] Difficulty in walkin g, not elsewhere classified 5 Yoon Tom. [address] [place], [address]. tel:[phone] [facility], [address], [place], [place], [id number], [place] tel:[phone] [place] Difficulty in walkin g, not elsewhere classified 5 Yoon Tom. [address], [place], [address]. tel:[phone] [facility], [address], [place], [place], [id number], [place] tel:[phone] [place] Difficulty in walkin g, not elsewhere classifiedMuscle weakness (generalized) 5 Karen Fox. [address], [place], [place], [id number], [place]. tel:[phone] [facility], 1 [facility] [address], [place], [place], [id number], [place] tel:[phone] [place] Encounter for rehabilitation evaluation 4 Levi Izquierdo. [address] [place], [place], [id number], [place]. tel:[phone] [facility], [address], [place], [place], [id number], [place] tel:[phone] [place] Encounter for rehabilitation evaluation 4 Humera Michele. [address] [place], [place], [id number], [place]. tel:[phone] [facility], [address] [facility] [address], [place], [place], [id number], [place] tel:[phone] [place] Difficulty in walkin g, not elsewhere classified 4 Yoon Tom. [address] [place], [address]. tel:[phone] [facility], [address] [facility] [address], [place], [place], [id number], [place] tel:[phone] [place] Difficulty in walkin g, not elsewhere classified 4 Yoon Tom. [address] [place], [address]. tel:[phone] [facility], [address] [facility] [address], [place], [place], [id number], [place] tel:[phone] [facility] [facility] Evaluation (chief complaint) Acute bronchitis, unspecified organismAcute metabolic encephalopathyModerate vascular dementia without behavioral disturbance, psychotic disturbance, mood disturbance, or anxietyCerebrovascular small vessel disease 4 Pitsiladis Edilia. [address] [place], [place], [id number], [place]. tel:[phone] [facility], [address] [facility] [address] [facility], [place], [place], [id number], [place] tel:[phone] [place] Hypertensive chronic kidney disease with stage 1 through stage 4 chronic kidney disease, or unspecified chronic kidney disease 4 Pitsiladis Edilia. [address] [place], [place], [id number], [place]. tel:[phone] [facility], [address] [facility] [address], [place], [place], [id number], [place] tel:[phone] [place] Follow-up (chief complaint) TachycardiaHypertensive chronic kidney disease with stage 1 through stage 4 chronic kidney disease, or unspecified chronic kidney diseaseStage 3a chronic kidney diseaseModerate vascular dementia without behavioral disturbance, psychotic disturbance, mood disturbance, or anxietyCerebrovascular small vessel diseaseHistory of recurrent UTIs 4 Pitsiladis Edilia. [address], [place], [place], [id number], [place]. tel:[phone] [facility], [address] [facility] [address], [place], [place], [id number], [place] tel:[phone] [place] History of recurrent UTIs 4 Pitsiladis Edilia. [address] [place], [place], [id number], [place]. tel:[phone] [facility], [address] [facility] [address], [place], [place], [id number], [place] tel:[phone] [place] Other abnormalities of gait and mobility 4 Yoon Tom. [address], [place], [address]. tel:[phone] [facility], [address] [facility], [place], [place], [id number], [place] tel:[phone] [place] Follow-up (chief complaint) Acute cystitis without hematuriaHypertensive chronic kidney disease with stage 1 through stage 4 chronic kidney disease, or unspecified chronic kidney diseaseStage 3a chronic kidney diseaseHard of hearing 4 Pitsiladis Edilia. [address] [place], [place], [id number], [place]. tel:[phone] [facility], [address] [facility], [place], [place], [id number], [place] tel:[phone] [place] Other abnormalities of gait and mobility 4 Yoon Tom. [address] [place], [address]. tel:[phone] [facility], [facility], [place], [place], [id number], [place] tel:[phone] [place] Difficulty in walkin g, not elsewhere classified 4 Yoon Tom. [address] [place], [address]. tel:[phone] [facility], [address], [place], [place], [id number], [place] tel:[phone] [place] Difficulty in walkin g, not elsewhere classified 4 Yoon Tom. [address] [place], [address]. tel:[phone] [facility], [address], [place], [place], [id number], [place] tel:[phone] [place] Other abnormalities of gait and mobilityMuscle weakness (generalized) 4 Yoon Tom. [address] [place], [address]. tel:[phone] [facility], [address] [facility], [place], [place], [id number], [place] tel:[phone] [place] Other abnormalities of gait and mobility 4 Yoon Tom. [address] [place], [address]. tel:[phone] [facility], [facility] [address], [place], [place], [id number], [place] tel:[phone] [place] Other abnormalities of gait and mobility 4 Yoon Tom. [address] [place], [address]. tel:[phone] [facility], [address], [place], [place], [id number], [place] tel:[phone] [place] Follow-up (chief complaint) Alternating constipation and diarrheaHypertensive chronic kidney disease with stage 1 through stage 4 chronic kidney disease, or unspecified chronic kidney diseaseStage 3a chronic kidney disease Jun- 4 Pitsiladis Edilia. [address] [place], [place], [id number], [place]. tel:[phone] [facility], 1 [facility] [address], [place], [place], [id number], [place] tel:[phone] [place] Other abnormalities of gait and mobility Jun- 4 Yoon Tom. [address] [place], [address]. tel:[phone] [facility], [address], [place], [place], [id number], [place] tel:[phone] [place] No Information 4 Pitsjose Yeboah. [address] [place], [place], [address], [place]. tel:[phone] [facility], [address], [place], [place], [id number], [place] tel:[phone] [place] Difficulty in walkin g, not elsewhere classified 4 Yoon Tom. [address] [place], [address]. tel:[phone] [facility], [address], [place], [place], [id number], [place] tel:[phone] [place] Other abnormalities of gait and mobility 4 Yoon Tom. [address], [place], [address]. tel:[phone] [facility], [address], [place], [place], [id number], [place] tel:[phone] [place] Other abnormalities of gait and mobility 4 Yoon Tom. [address] [place], [address]. tel:[phone] [facility], [address] [facility] [address], [place], [place], [id number], [place] tel:[phone] [place] Encounter for rehabilitation evaluation 4 Karen Fox. [address] [place], [place], [id number], [place]. tel:[phone] [facility], [address], [place], [place], [id number], [place] tel:[phone] [place] Difficulty in walkin g, not elsewhere classified 4 Yoon Tom. [address], [place], [address]. tel:[phone] [facility], [address], [place], [place], [id number], [place] tel:[phone] [place] Other specified personal risk factors, not elsewhere classifiedMalignant neoplasm of prostate 4 Pitsiladis Edilia. [address] [place], [place], [address], [place]. tel:[phone] [facility], [address] [facility] [address], [place], [place], [id number], [place] tel:[phone] [place] Encounter for rehabilitation evaluation 4 Karensreedhar Fox. [address] [facility] [place], [id number], [place]. tel:[phone] [facility], [address] [facility], [place], [place], [id number], [place] tel:[phone] [place] Encounter for rehabilitation evaluation 4 Yoon Tom. [address], [place], [address]. tel:[phone] [facility], [address] [facility] [address], [place], [place], [id number], [place] tel:[phone] [place] Encounter for nutritional assessment 4 Normile Gypsy. [address] [place], [place], [id number], [place]. tel:[phone] [facility], [address], [place], [place], [id number], [place] tel:[phone] [place] [facility] Enrollment Evaluation (chief complaint) Hard of hearingProstate cancerHyperlipidemia, unspecified hyperlipidemia typeBPH associated with nocturiaNocturiaRecurre nt depressionDementia without behavioral disturbance, psychotic disturbance, mood disturbance, or anxiety, unspecified dementia severity, unspecified dementia typeHistory of recurrent UTIsSpinal stenosis of lumbar region without neurogenic claudicationHistory of lymphomaHemiparesis affecting left side as late effect of cerebrovascular accident (CVA)Essential (primary) hypertension 4 Pitsiladis Edilia. [address] [place], [place], [address], [place]. tel:[phone] [facility], [address] [address], [place], [place], [id number], [place] tel:[phone] [place] No Information May- 4 Pitsiladis Edilia. [address] [place], [place], [id number], [place]. tel:[phone] [facility], [address] [facility], [place], [place], [id number], [place] tel:[phone] [place] No Information 4 Pitsiladis Edilia. [address] [place], [place], [address], [place]. tel:[phone] Family History Family Member Type Diagnosis Age At Onset No Information Immunizations Vaccine Date Status Comments Prevnar refused Note: not admin istered, ppt refused, HCP refused ; Source: New Immunization Record Tdap refused Source: New Imm unization Record Prevnar refused Note: ppt refus ed ; Source: New Immunization Record Fluzone High Dose refused So urce: New Immunization Record COVID-19 Pfizer administered Source: Othe r Registry COVID-19 Pfizer administered Source: [place] Registry Flu-IIV4, p-free High Dose administered S ource: Other Registry Payers Payer name Insurance type Covered alliance party ID Deejay gauthierrenay(s) [place] [id number] [place] [address] [id number] Social History Type Description Quantity Date Captured Comments Sex Male Smoking Status No Information Chief Complaint And Reason For Visit No Information Plan Of Treatment Date Type Action Status Referral Ordered: Referrals: Dentistry. Evaluate and treat ordered Referral Referred To: [facility] Ordered: Referrals: Urology. [facility]. Follow-up and treat ordered Appointment Joseph Richard Appointment [facility] Appointment Jose Manuel [place] Appoint[place] Jose Manuel, [place] Appoint[place] Jose Manuel [place] Appoint[place] Jose Manuel, [place] App[place] Jose Manuel, [place] Appoint[place] Jose Manuel [place] [facility] Jose Manuel [place] App[facility] Jose Manuel [place] Appoint[place] Jose Manuel [place] Appointment Jose Manuel, [place] Appointment Jose Manuel [place] Appointment Jose Manuel [place] Appointment Jose Manuel [place] Appointment Jose Manuel [place] Appointment Jose Manuel [place] Appointment Jose Manuel [place] Appointment Jose Manuel [place] Appointment Jose Manuel Joseph Appointment Jose Manuel [place] Appointment Jose Manuel [place] Appointment Jose Manuel [place] Appointment Jose Manuel [place] Appointment Jose Manuel Joseph Appointment Jose Manuel [place] Appointment Jose Manuel Joseph Appointment Jose Manuel [place] Appointment Jose Manuel [place] Appointment Jose Manuel Joseph Appointment Jose Manuel [place] Appointment Jose Manuel [place] Appointment Jose Manuel [place] Appointment Jose Manuel Joseph Appointment Jose Manuel Joseph Appointment Jose Manuel Joseph Appointment Jose Manuel Joseph Appointment Jose Manuel Joseph Appointment Jose Manuel [place] Appointment Jose Manuel Joseph Appointment Jose Manuel Joseph Appointment Jose Manuel [place] Appointment Jose Manuel [place] Appointment Jose Manuel [place] Appointment Jose Manuel Joseph Appointment Jose Manuel Joseph Appointment Jose Manuel Joseph Appointment Jose Manuel Joseph Appointment Jose Manuel Joseph Appointment Jose Manuel Joseph Appointment Jose Manuel Joseph Appointment Jose Manuel Joseph Appointment Jose Manuel Joseph Appointment Jose Manuel Joseph Appointment Jose Manuel Joseph Appointment Jose Manuel Joseph Appointment Jose Manuel Joseph Appointment Jose Manuel Joseph Appointment Jose Manuel Joseph Appointment Jose Manuel Joseph Appointment Jose Manuel Joseph Appointment Jose Manuel Joseph Appointment Jose Manuel Joseph Appointment Jose Manuel Joseph Appointment Jose Manuel Joseph Appointment Jose Manuel [place] Appointment Jose Manuel [place] Appointment Jose Manuel Joseph Appointment Jose Manuel Joseph Appointment Jose Manuel Joseph Appointment Jose Manuel Joseph Appointment Jose Manuel Joseph Appointment Jose Maunel Joseph Appointment Jose Manuel Joseph Appointment Jose Manuel Joseph Appointment Jose Manuel Joseph Appointment Jose Manuel Joseph Appointment Jose Manuel Joseph Appointment Jose Manuel Joseph Appointment Jose Manuel Joseph Appointment Jose Manuel Joseph Appointment Kamar Richardneth Appointment Kamar Richardneth Appointment Kamar Richardneth Appointment Jose Manuel Joseph Appointment Jose Manuel [place] Appointment Jose Manuel [place] Appointment Jose Manuel [place] Appointment Jose Manuel [place] Appointment Jose Manuel [place] Appointment Jose Manuel [place] Appointment Jose Manuel [place] Appointment Jose Manuel [place] Appointment Jose Manuel [place] Appointment Jose Manuel [place] Appointment Jose Manuel [place] Appointment Jose Manuel [place] Appointment Jose Manuel [place] Appointment Jose Manuel [place] Appointment Jose Manuel [place] Appointment Jose Manuel [place] Appointment Jose Manuel [place] Appointment Jose Manuel [place] Appointment Jose Manuel [place] Appointment Jose Manuel [place] Appointment Jose Manuel [place] Appointment Jose Manuel [place] Appointment Jose Manuel [place] Appointment Jose Manuel [place] Appointment Jose Manuel [place] Appointment Jose Manuel [place] Appointment Jose Manuel [place] Appointment Jose Manuel [place] Appointment Jose Manuel [place] Appointment Jose Manuel [place] Appointment Jose Manuel [place] Appointment Jose Manuel [place] Appointment Jose Manuel [place] Appointment Jose Manuel [place] Appointment Jose Manuel [place] Appointment Jose Manuel [place] Appointment Jose Manuel [place] Appointment Jose Manuel [place] Appointment Jose Manuel [place] Appointment Jose Manuel [place] Appointment Jose Manuel [place] Appointment Jose Manuel [place] Appointment Jose Manuel, [place] Appointment Jose Manuel, [place] Appointment Jose Manuel, Joseph Appointment Jose Manuel, Joseph Appointment Jose Manuel, Joseph Appointment Jose Manuel [place] Appointment Jose Manuel, Joseph Appointment Jose Manuel, [place] Appointment Jose Manuel, [place] Appointment Jose Manuel, [place] Appointment Jose Manuel [place] Appointment Jose Manuel, [place] Appointment Jose Manuel [place] Appointment Jose Manuel [place] Appointment Jose Manuel [place] Appointment Jose Manuel [place] Appointment Jose Manuel [place] Appointment Jose Manuel [place] Appointment Jose Manuel [place] Appointment Jose Manuel, [place] Appointment Jose Manuel [place] Appointment Jose Manuel [place] Appointment Jose Manuel [place] Appointment Jose Manuel [place] Appointment Jose Manuel [place] Appointment Jose Manuel [place] Appointment Jose Manuel [place] Appointment Jose Manuel [place] Appointment Jose Manuel [place] Appointment Jose Manuel [place] Appointment Jose Manuel [place] Appointment Jose Manuel [place] Appointment Jose Manuel [place] Appointment Jose Manuel [place] Appointment Jose Manuel [place] Appointment Jose Manuel [place] Appointment Jose Manuel [place] Appointment Jose Manuel [place] Appointment Jose Manuel [place] Appointment Jose Manuel [place] Appointment Jose Manuel [place] Appointment Jose Manuel [place] Appointment Jose Manuel Joseph Appointment Jose Manuel Joseph Appointment Jose Manuel Joseph Appointment Jose Manuel Joseph Appointment Jose Manuel Joseph Appointment Jose Manuel Joseph Appointment Jose Manuel Joseph Appointment Jose Manuel Joseph Appointment Jose Manuel Joseph Appointment Jose Manuel Joseph Appointment Jose Manuel Joseph Appointment Jose Manuel Joseph Appointment Jose Manuel Joseph Appointment Jose Manuel Joseph Appointment Jose Manuel Joseph Appointment Jose Manuel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 calcifications and small chronic lacunar infarcts. Chronic small vessel ischemic white matter changes are noted. -Kamar has little carry over of his day-to-day activities or health information. He is unable to make adequate decisions. HCP is invoked. -MOCA 06/2024 is 15/30. He was part of paid caregiver program however this is being discontinued. He remains in SNF now. -Continue mirtazapine 7.5mg daily. I do not see an indication for Seroquel at this time. Will continue to monitor. Labs ordered. Related to Moderate vascular dementia without behavioral disturbance, psychotic disturbance, mood disturbance, or anxiety -Per pre-enrollment (10/11/22 pg 5), problem list includes lumbar spinal stenosis. No history of surgery or injection. He also has a history of CVA resulting in left sided weakness. -Kamar admitted to [facility], receiving PT/OT, Tylenol. Pain reasonably managed at present. Will continue with rehab. Related to Spinal stenosis of lumbar region without neurogenic claudication -Per pre-enrollment (10/11/22 page 4), problem list includes CVA. Joseph and his son report some left sided weakness (upper and lower extremity), left side of mouth may ???leak???, some mumbling. -Son helps care for him as part of adult foster care program. -On exam, slight differences in left and right side strength. -Continues to be deconditioned as he spends much of his time sitting in the chair. -Continue PT/OT rehab services at [facility]. Related to Hemiparesis affecting left side as late effect of cerebrovascular accident (CVA) -Per pre-enrollment (10/11/22 page 4), problem list includes dementia. CT imaging 05/2022 showed the cerebral hemispheres, posterior fossa, and ventricular system are within normal limits for age with mild cortical volume loss. Chronic bilateral basal ganglia calcifications and small chronic lacunar infarcts. Chronic small vessel ischemic white matter changes are noted. -Kamar has little carry over of his day-to-day activities or health information. He is unable to make adequate decisions. HCP is invoked. -MOCA 06/2024 is 15. Patient is part of adult foster care program with his son as the paid caregiver however there have been concerns for safety at home and Kamar as resisted care from his son resulting in interpersonal tension, conflict and lack of adequate care. Team is currently reviewing other options for Kamar including but not limited to removal of son from paid caregiver program, [employer] program, [employer] assistance in home, LTC. -Continue mirtazapine 7.5mg daily. Related to Moderate vascular dementia without behavioral disturbance, psychotic disturbance, mood disturbance, or anxiety -See vascular gracie ia.-CT 05/2022 The cerebral hemispheres, posterior fossa, and ventricular system are within normal limits for age with mild cortical volume loss. Chronic bilateral basal ganglia calcifications and small chronic lacunar infarcts. Chronic small vessel ischemic white matter changes are noted . Related to Cerebrovascular small vessel disease -Per pre-enrollment (04/21/24, page 3) history of depression (type not specified) which was treated with sertraline 50mg daily. Son stopped this as it was making Joseph too sleepy and ???out of it???.-Kamar has experienced continued depression symptoms. Joseph was coming to [employer] program for increased socialization, activity however he is now in SNF. Limited engagement in socialization. -Mirtazapine 7.5mg daily at bedtime added about 1 week ago. Mood stable thus far, perhaps some improvement. Eating well. Will continue at current dose. Related to Recurrent depression Patient with acute m etabolic encephalopathy in the setting of acute kidney injurySymptoms improved with IV hydrationPt seems to be at his baseline as per review of chart but this is the first time for this examiner meeting this ptPt's workup including TSH, B12 and Neurology workup was unremarkable in the [facility] continue to monitor closely Related to Metabolic encephalopathy Patient with some le ft sided weakness as a sequela of a previous CVAPt is severely deconditioned as he spends most of the time in his chairContinue PT/OT rehab services at the [facility] continue to monitor Related to Hemiplegia and hemiparesis following cerebral infarction affecting left non-dominant side Patient with some le ft sided weakness as a sequela of a previous CVAPt is severely deconditioned as he spends most of the time in his chairContinue PT/OT rehab services at the [facility] continue to monitor Related to Hemiparesis affecting left side as late effect of cerebrovascular accident (CVA) Patient with acute m etabolic encephalopathy in the setting of acute kidney injurySymptoms improved with IV hydrationPt seems to be at his baseline as per review of chart but this is the first time for this examiner meeting this ptPt's workup including TSH, B12 and Neurology workup was unremarkable in the [facility] continue to monitor closely Related to Acute metabolic encephalopathy -Per pre-enrollment (10/11/22 pg 5), problem list includes lumbar spinal stenosis. -Joseph and his son report ongoing low back pain after level of his belt line; no radiation. No history of surgery or injection. Son feels his lack of movement/activity has led to deconditioning and further weakness. He also has a history of CVA resulting on left sided weakness. Son believes he had imaging about 1 year ago, this would have been at [facility]. I do not see anything in our pre-enrollment. -Kamar admitted to [facility], receiving PT/OT. PRN Tylenol in place. Related to Spinal stenosis of lumbar region without neurogenic claudication -Per [facility] notes 09/2024, recurrent metabolic encephalopathy r/t HALEY, dehydration. -[facility] discharge 09/10/24, acute metabolic encephalopathy with potential etiologies including HALEY/dehydration, residual UTI symptoms, or delirium from frequent change of surroundings (acute care hospital to rehab now back to acute [facility]). Neurology consulted inpatient, EEG no epileptiform, B12/TSH normal.-Kamar continues to need SNF services including 24/ nursing care, significant assistance with ADLs, PT/OT. Related to Acute metabolic encephalopathy -Per pre-enrollment (10/11/22 page 4), problem list includes dementia. CT imaging 05/2022 showed the cerebral hemispheres, posterior fossa, and ventricular system are within normal limits for age with mild cortical volume loss. Chronic bilateral basal ganglia calcifications and small chronic lacunar infarcts. Chronic small vessel ischemic white matter changes are noted. -MOCA 06/2024 is . Patient is part of adult foster care program with his son as the paid caregiver.-Kamar has little carry over of his day-to-day activities or health information. He is unable to make adequate decisions. HCP is invoked. -Ongoing consideration of medication for management of mood and behaviors; however it is difficult to discern his behaviors as they are primarily present only when receiving care from his son and not with other caregivers. Related to Moderate vascular dementia without behavioral disturbance, psychotic disturbance, mood disturbance, or anxiety -See vascular gracie ia.-CT 05/2022 The cerebral hemispheres, posterior fossa, and ventricular system are within normal limits for age with mild cortical volume loss. Chronic bilateral basal ganglia calcifications and small chronic lacunar infarcts. Chronic small vessel ischemic white matter changes are noted . Related to Cerebrovascular small vessel disease -Per pre-enrollment (10/11/22 page 4), problem list includes CVA. Joseph and his son report some left sided weakness (upper and lower extremity), left side of mouth may ???leak???, some mumbling. -Son helps care for him as part of adult foster care program. -On exam, slight differences in left and right side strength. -Continues to be deconditioned as he spends much of his time sitting in the chair. -Continue PT/OT rehab services at [facility]. Related to Hemiparesis affecting left side as late effect of cerebrovascular accident (CVA) -Urology note (Dr. Herve ríos at [facility]) states history of prostate cancer, prostatitis ???in the setting of immunocompromised patient???, nocturia, recurring UTI. Urology recommended methenamine with Vitamin C for the recurring UTIs, and trial of Myrbetriq for persistent nocturia in the setting of early dementia; that was ineffective and discontinued. In terms of the prostate cancer, they recommended ???cycling finasteride month on, 1 month off???, they noted PSA stable ???last management 03/14 4.8???. Notes also state the persistent prostatis started after a prostate biopsy. More recent PSA 06/2024 4.93. Continue finasteride 5mg daily (comes to us on daily dosing).-He has recurrent UTI and immunocompromised state r/t prior follicular lymphoma and chemotherapy in 2014.-Methenamine was stopped with last UTI needing treatment; he is now on cephalexin for prophylaxis. -Continue to have low threshold for workup of possible infection. -Follow up with urology. Referral placed. Related to Immunocompromised state -Per pre-enrollment (10/11/22 page 4), prostate cancer diagnosed in 12/2019 Dr. Saldana with a needle biopsy for elevated PSA of 8. Described as ???intermediate risk???.-Urology note (Dr. Saldana at [facility]) states history of prostate cancer, prostatitis ???in the setting of immunocompromised patient???, nocturia, recurring UTI. Urology recommended methenamine with Vitamin C for the recurring UTIs, and trial of Myrbetriq for persistent nocturia in the setting of early dementia. In terms of the prostate cancer, they recommended ???cycling finasteride month on, 1 month off???, they noted PSA stable ???last management 03/14 4.8???. Notes also state the persistent prostatis started after a prostate biopsy. More recent PSA 06/2024 4.93. -Continue finasteride 5mg daily (their note stated cycling however he comes to us on daily use of this). -He has recurrent UTI and history of immunocompromised state r/t prior follicular lymphoma and chemotherapy in 2014. Urology also stated they felt persistent nocturia with incontinence was in the setting of dementia. Methenamine was stopped with last UTI needing treatment; he is now on cephalexin for prophylaxis. -Urology note in 09/2023 also stated he should have whole body bone scan. Unclear if this has been completed yet or not. -Follow up with urology. Referral placed. Related to Prostate cancer -Per pre-enrollment (10/11/22 page 4), BPH listed in problem list. He also was diagnosed with prostate cancer in 12/2019. -Urinary symptoms including nocturia, incontinence. -Continue finasteride 5mg daily at bedtime. He also continues on UTI prophylaxis. -Follow up with urology at [facility]. Related to Nocturia -Per pre-enrollment (10/11/22 page 4), BPH listed in problem list. He also was diagnosed with prostate cancer in 12/2019. -Urinary symptoms including nocturia, incontinence. -Continue finasteride 5mg daily at bedtime. He also continues on UTI prophylaxis. -Follow up with urology at [facility]. Related to BPH associated with nocturia -Treated for UTI the week before enrollment (05/2024). I also see in records (Pre-enrollment 10/11/2022) +UTI. Per son, every time he goes they are going to ???treat him for one, it's always there???. Record 04/21/24 shows +UTI while at [place]; discharged 04/08/24.-Per urology, after prostate biopsy he developed persistent prostatitis and also has recurrent UTIs in the setting of history of immunosuppression r/t follicular lymphoma with chemotherapy in 2014. -Developed UTI 08/17/24, started on PO antibiotics and then he developed urosepsis that evening resulting in hospitalization and SNF stay. Methenamine stopped while on cephalosporin for treatment. PO abt completed 09/02/24. Subsequently started on prophylaxis with cephalexin 250mg PO daily.-Will have low threshold for running a UA with any change in symptoms or behaviors. Related to History of recurrent UTIs -09/2024 eGFR 52-70, creatinine 1.1-1.41. 06/2024 eGFR 48, creatinine 1.52. Consistent with prior labs as far back as 2021 (eGFR 51, creatinine 1.38). -Avoid nephrotoxins, encourage hydration, repeat labs in the next few months. Related to Stage 3a chronic kidney disease -Per pre-enrollment (10/11/22 page 4), problem list includes hypertension. Noted with CKD on labs. -BP goal <140/90. On metoprolol tartrate 25mg BID. -09/2024 eGFR 52-70, creatinine 1.1-1.41. 06/2024 eGFR 48, creatinine 1.52. Consistent with prior labs as far back as 2021 (eGFR 51, creatinine 1.38). -Avoid nephrotoxins, encourage hydration, repeat labs in the next few months. Related to Hypertensive chronic kidney disease with stage 1 through stage 4 chronic kidney disease, or unspecified chronic kidney disease -Per pre-enrollment. -Meals prepared by son when staying at home. He is now in SNF, meals prepared by facility. -06/2024 TC 127, HDL 41, LDL 66, TG 112. -Continue atorvastatin 40mg daily. Continue periodic labs. Related to Hyperlipidemia, unspecified hyperlipidemia type -Per pre-enrollment (04/21/24, page 3) history of depression (type not specified) which was treated with sertraline 50mg daily. Son stopped this as it was making Joseph too sleepy and ???out of it???.-Feels he has continued daily depression symptoms. No anxiety. Increased fatigue. Joseph was coming to [employer] [facility] program for increased socialization, activity however he is now in SNF. Limited engagement in socialization. Affect is flat. Difficult to get him engaged in conversation regarding his mood. -Will discuss plan with son plan to start medication to help with mood; likely to be mirtazapine 7.5mg daily at bedtime. Related to Recurrent depression -See vascular gracie ia.-CT 05/2022 The cerebral hemispheres, posterior fossa, and ventricular system are within normal limits for age with mild cortical volume loss. Chronic bilateral basal ganglia calcifications and small chronic lacunar infarcts. Chronic small vessel ischemic white matter changes are noted . Related to Cerebrovascular small vessel disease -Per pre-enrollment (10/11/22 page 4), problem list includes CVA. Joseph and his son report some left sided weakness (upper and lower extremity), left side of mouth may ???leak???, some mumbling. -Son helps care for him as part of adult foster care program. -On exam, slight differences in left and right side strength. -Continues to be deconditioned as he spends much of his time sitting in the chair. -Continue PT/OT rehab services at [facility]. Related to Hemiparesis affecting left side as late effect of cerebrovascular accident (CVA) -Per pre-enrollment (10/11/22 page 4), problem list includes dementia. CT imaging 05/2022 showed the cerebral hemispheres, posterior fossa, and ventricular system are within normal limits for age with mild cortical volume loss. Chronic bilateral basal ganglia calcifications and small chronic lacunar infarcts. Chronic small vessel ischemic white matter changes are noted. -MOCA 06/2024 is . Patient is part of adult foster care program with his son as the paid caregiver.-Kamar has little carry over of his day-to-day activities or health information. He is unable to make adequate decisions. HCP is invoked. -Ongoing consideration of medication for management of mood and behaviors; however it is difficult to discern his behaviors as they are primarily present only when receiving care from his son and not with other caregivers. Related to Moderate vascular dementia without behavioral disturbance, psychotic disturbance, mood disturbance, or anxiety -Per pre-enrollment (04/21/24, page 3) history of depression (type not specified) which was treated with sertraline 50mg daily. Son stopped this as it was making Joseph too sleepy and ???out of it???.-Feels he has continued daily depression symptoms. No anxiety. Increased fatigue. Joseph was coming to [employer] [facility] program for increased socialization, activity however he is now in SNF. Limited engagement in socialization. Affect is flat. Difficult to get him engaged in conversation regarding his mood. -Add mirtazapine 7.5mg daily at bedtime. Related to Recurrent depression -Urology note (Dr. Herve ríos at [facility]) states history of prostate cancer, prostatitis ???in the setting of immunocompromised patient???, nocturia, recurring UTI. Urology recommended methenamine with Vitamin C for the recurring UTIs, and trial of Myrbetriq for persistent nocturia in the setting of early dementia. In terms of the prostate cancer, they recommended ???cycling finasteride month on, 1 month off???, they noted PSA stable ???last management 03/14 4.8???. Notes also state the persistent prostatis started after a prostate biopsy. More recent PSA 06/2024 4.93. Continue finasteride 5mg daily. -He has recurrent UTI and immunocompromised state r/t prior follicular lymphoma and chemotherapy in 2014.-Methenamine was stopped with last UTI needing treatment; he is now on cephalexin for prophylaxis. -Continue to have low threshold for workup of possible infection. -Follow up with urology. Referral placed. Related to Immunocompromised state -Per pre-enrollment (10/11/22 page 4), problem list includes dementia. CT imaging 05/2022 showed the cerebral hemispheres, posterior fossa, and ventricular system are within normal limits for age with mild cortical volume loss. Chronic bilateral basal ganglia calcifications and small chronic lacunar infarcts. Chronic small vessel ischemic white matter changes are noted. -MOCA 06/2024 is 15/30. -Will attempt to obtain further notes/information on this diagnosis. HCP form on file. Patient is part of adult foster care program with his son as the caregiver.-Kamar has little carry over of his day-to-day activities or health information. He is unable to make adequate decisions. He was previously invoked by other provider and I believe recently within the SNF setting. Continued invocation is indicated.-Ongoing consideration of medication for management of mood and behaviors. Related to Moderate vascular dementia without behavioral disturbance, psychotic disturbance, mood disturbance, or anxiety -See vascular gracie ia.-CT 05/2022 The cerebral hemispheres, posterior fossa, and ventricular system are within normal limits for age with mild cortical volume loss. Chronic bilateral basal ganglia calcifications and small chronic lacunar infarcts. Chronic small vessel ischemic white matter changes are noted . Related to Cerebrovascular small vessel disease -Per pre-enrollment (10/11/22 page 4), prostate cancer diagnosed in 12/2019 Dr. Saldana with a needle biopsy for elevated PSA of 8. Described as ???intermediate risk???.-Urology note (Dr. Saldana at [facility]) states history of prostate cancer, prostatitis ???in the setting of immunocompromised patient???, nocturia, recurring UTI. Urology recommended methenamine with Vitamin C for the recurring UTIs, and trial of Myrbetriq for persistent nocturia in the setting of early dementia. In terms of the prostate cancer, they recommended ???cycling finasteride month on, 1 month off???, they noted PSA stable ???last management 03/14 4.8???. Notes also state the persistent prostatis started after a prostate biopsy. More recent PSA 06/2024 4.93. -Continue finasteride 5mg daily. -He has recurrent UTI and history of immunocompromised state r/t prior follicular lymphoma and chemotherapy in 2014. Urology also stated they felt persistent nocturia with incontinence was in the setting of early dementia. Methenamine was stopped with last UTI needing treatment; he is now on cephalexin for prophylaxis. -Urology note in 09/2023 also stated he should have whole body bone scan. Unclear if this has been completed yet or not. -Follow up with urology. Referral placed. Related to Prostate cancer -Per pre-enrollment (10/11/22 page 4), problem list includes hypertension. Noted with CKD on labs. -BP goal <140/90. Metoprolol discontinued in July 2024 however has since been in hospital and SNF. HR 09/04/24 was 105-118bpm. Metoprolol tartrate 25mg BID restarted.-Recent labs 06/2024 show evidence of CKD3A with eGFR 48, creatinine 1.52. Consistent with prior labs as far back as 2021 (eGFR 51, creatinine 1.38). -Avoid nephrotoxins, encourage hydration, repeat labs in the next few months. Related to Hypertensive chronic kidney disease with stage 1 through stage 4 chronic kidney disease, or unspecified chronic kidney disease -Recent labs 06/2024 show evidence of CKD3A with eGFR 48, creatinine 1.52. Consistent with prior labs as far back as 2021 (eGFR 51, creatinine 1.38). -Avoid nephrotoxins, encourage hydration, repeat labs in the next few months. Related to Stage 3a chronic kidney disease -Per pre-enrollment. -Meals prepared by son. He will be attending [facility] which may increase his activity and improve his diet (at least at lunch). Will also ask PT to assist with strengthening. -06/2024 TC 127, HDL 41, LDL 66, TG 112. -Continue atorvastatin 40mg daily. Continue periodic labs. Related to Hyperlipidemia, unspecified hyperlipidemia type -Per pre-enrollment (04/21/24, page 3) history of depression (type not specified) which was treated with sertraline 50mg daily. Son stopped this as it was making Joseph too sleepy and ???out of it???.-Feels he has continued daily depression symptoms. No anxiety. Increased fatigue. Joseph continues to come to [facility] for increased socialization, activity. -Will continue to monitor and consider medication for mood stabilization if indicated. Related to Recurrent depression -Per pre-enrollment (10/11/22 page 4), problem list includes CVA. Joseph and his son report some left sided weakness (upper and lower extremity), left side of mouth may ???leak???, some mumbling. -Son helps care for him as part of adult foster care program. -06/2024: On exam, slight differences in left and right side strength. -Continues to be deconditioned as he spends much of his time sitting in the chair. PT on board already. -Kamar will continue to come to day program. Will recommend short term use of morning [employer] to help get him ready and on the van due to significant resistance to help from his son on Kamar's part. Related to Hemiparesis affecting left side as late effect of cerebrovascular accident (CVA) -See vascular gracie ia.-CT 05/2022 The cerebral hemispheres, posterior fossa, and ventricular system are within normal limits for age with mild cortical volume loss. Chronic bilateral basal ganglia calcifications and small chronic lacunar infarcts. Chronic small vessel ischemic white matter changes are noted . Related to Cerebrovascular small vessel disease -Per pre-enrollment (10/11/22 page 4), problem list includes dementia. CT imaging 05/2022 showed the cerebral hemispheres, posterior fossa, and ventricular system are within normal limits for age with mild cortical volume loss. Chronic bilateral basal ganglia calcifications and small chronic lacunar infarcts. Chronic small vessel ischemic white matter changes are noted. -MOCA 06/2024 is 15/30. -Will attempt to obtain further notes/information on this diagnosis. HCP form on file. Patient is part of adult foster care program with his son as the caregiver.-Kamar has little carry over of his day-to-day activities or health information. He is unable to make adequate decisions. He was previously invoked by other provider and I believe recently within the SNF setting. Continued invocation is indicated.-Somewhat tearful during visit today when discussing allowing his son to help care for him more. Kamar has experienced increased agitation at home, primarily with care from son. Depressive symptoms present intermittently with this. -Will plan to start citalopram in the near future. Related to Moderate vascular dementia without behavioral disturbance, psychotic disturbance, mood disturbance, or anxiety -Per [facility] discha rge 09/10/24, acute metabolic encephalopathy with potential etiologies including HALEY/dehydration, residual UTI symptoms, or delirium from frequent change of surroundings ([facility] to rehab now back to [facility]). Neurology consulted inpatient, EEG no epileptiform, B12/TSH normal.-Appears to be resolving as Kamar is able to stand and take some steps, alert and oriented x 2 (his baseline), and carry a conversation. No agitation. -Kamar will resume day program tomorrow. Son will report any concerns. Related to Acute metabolic encephalopathy -Acute bronchitis pe r hospital discharge 09/10/24. -Exam reassuring today. -Continue doxycycline for 3 more day. Hospital dispensed the medication, he has it with him. Related to Acute bronchitis, unspecified organism -Per pre-enrollment (10/11/22 page 4), problem list includes hypertension. Noted with CKD on labs. -BP goal <140/90. Metoprolol discontinued in July 2024 however has since been in hospital and SNF. HR today 105-118bpm. Metoprolol tartrate 25mg BID restarted today. -Recent labs 06/2024 show evidence of CKD3A with eGFR 48, creatinine 1.52. Consistent with prior labs as far back as 2021 (eGFR 51, creatinine 1.38). -Avoid nephrotoxins, encourage hydration, repeat labs in the next few months. Related to Hypertensive chronic kidney disease with stage 1 through stage 4 chronic kidney disease, or unspecified chronic kidney disease -Treated for UTI the week before enrollment (05/2024). I also see in records (Pre-enrollment 10/11/2022) +UTI. Per son, every time he goes they are going to ???treat him for one, it's always there???. Record 04/21/24 shows +UTI while at [place]; discharged 04/08/24.-Per urology, after prostate biopsy he developed persistent prostatitis and also has recurrent UTIs in the setting of history of immunosuppression r/t follicular lymphoma with chemotherapy in 2014. -Developed UTI 08/17/24, started on PO antibiotics and then he developed urosepsis that evening resulting in hospitalization and SNF stay. Methenamine stopped while on cephalosporin for treatment. PO abt completed 09/02/24. Will initiate prophylaxis with cephalexin 250mg PO daily with coadministration of Florastor. -Will have low threshold for running a UA with any change in symptoms or behaviors. Related to History of recurrent UTIs -Treated for UTI the week before enrollment (05/2024). I also see in records (Pre-enrollment 10/11/2022) +UTI. Per son, every time he goes they are going to ???treat him for one, it's always there???. Record 04/21/24 shows +UTI while at [place]; discharged 04/08/24.-Per urology, after prostate biopsy he developed persistent prostatitis and also has recurrent UTIs in the setting of history of immunosuppression r/t follicular lymphoma with chemotherapy in 2014. -Developed UTI 08/17/24, started on PO antibiotics and then he developed urosepsis that evening resulting in hospitalization and SNF stay. Methenamine stopped while on cephalosporin for treatment. PO abt completed 09/02/24. Will initiate prophylaxis with cephalexin 250mg PO daily with coadministration of Florastor. -Will have low threshold for running a UA with any change in symptoms or behaviors. Related to History of recurrent UTIs -See dementia.-CT The cerebral hemispheres, posterior fossa, and ventricular system are within normal limits for age with mild cortical volume loss. Chronic bilateral basal ganglia calcifications and small chronic lacunar infarcts. Chronic small vessel ischemic white matter changes are noted . Related to Cerebrovascular small vessel disease -Per pre-enrollment (10/11/22 page 4), problem list includes dementia. CT imaging 05/2022 showed the cerebral hemispheres, posterior fossa, and ventricular system are within normal limits for age with mild cortical volume loss. Chronic bilateral basal ganglia calcifications and small chronic lacunar infarcts. Chronic small vessel ischemic white matter changes are noted . -MOCA 06/2024 is 15/30. -Will attempt to obtain further notes/information on this diagnosis. HCP form on file. Patient is part of adult foster care program with his son as the caregiver.-Kamar has no carry over of his day-to-day activities or health information. He is unable to make adequate decisions. He was previously invoked by other provider and I believe recently within the SNF setting and I agree on today's assessment that his HCP should be invoked. Related to Moderate vascular dementia without behavioral disturbance, psychotic disturbance, mood disturbance, or anxiety -Recent labs 06/2024 show evidence of CKD3A with eGFR 48, creatinine 1.52. Consistent with prior labs as far back as 2021 (eGFR 51, creatinine 1.38). -Avoid nephrotoxins, encourage hydration, repeat labs in the next few months. Related to Stage 3a chronic kidney disease -Per pre-enrollment (10/11/22 page 4), problem list includes hypertension. Noted with CKD on labs. -BP goal <140/90. Metoprolol discontinued in July 2024 however has since been in hospital and SNF. HR today 105-118bpm. Metoprolol tartrate 25mg BID restarted today. -Recent labs 06/2024 show evidence of CKD3A with eGFR 48, creatinine 1.52. Consistent with prior labs as far back as 2021 (eGFR 51, creatinine 1.38). -Avoid nephrotoxins, encourage hydration, repeat labs in the next few months. Related to Hypertensive chronic kidney disease with stage 1 through stage 4 chronic kidney disease, or unspecified chronic kidney disease -Per son and patient , longstanding decreased hearing. Son reports he bought his dad a $4500 hearing aid about 3 years ago but he did not wear it consistently. -08/17/24: Joseph says he has no interested in using a hearing aid. We discussed that should his hearing worsen or he change his mind, we can evaluate his hearing in the office. Related to Hard of hearing -Per pre-enrollment (10/11/22 page 4), problem list includes hypertension. Noted with CKD on labs. -History of 1 fall a couple of years ago r/t orthostatic hypotension. None since. -BP goal <140/90. He has been meeting goal with some tightly controlled BPs, and several heart rate readings in the 50s. Kamar and son would like to pull back on medications where possible. We reduced metoprolol tartrate to 25mg BID 2 weeks ago; BP continued to be tightly controlled and HR in the mid-50s to 60s. Will discontinued metoprolol and monitor BP more frequently over the next couple of weeks. -Recent labs 06/2024 show evidence of CKD3A with eGFR 48, creatinine 1.52. Consistent with prior labs as far back as 2021 (eGFR 51, creatinine 1.38). -Avoid nephrotoxins, encourage hydration, repeat labs in the next few months. Related to Hypertensive chronic kidney disease with stage 1 through stage 4 chronic kidney disease, or unspecified chronic kidney disease -Recent labs 06/2024 show evidence of CKD3A with eGFR 48, creatinine 1.52. Consistent with prior labs as far back as 2021 (eGFR 51, creatinine 1.38). -Avoid nephrotoxins, encourage hydration, repeat labs in the next few months. Related to Stage 3a chronic kidney disease -Per patient report, treated for UTI the week before enrollment (05/2024). I also see in records (Pre-enrollment 10/11/2022) +UTI. Per son, every time he goes they are going to ???treat him for one, it's always there???. Record 04/21/24 shows +UTI while at [place].-Per urology, after prostate biopsy he developed persistent prostatitis and also has recurrent UTIs in the setting of history of immunosuppression r/t follicular lymphoma with chemotherapy in 2014. -He is on methenamine Hippurate 1gm daily and Vitamin C. that was started by urology. -08/17/24: Increased confusion and weakness x 2-3 days. 3+ leuks, + nitrites. Will start Bactrim DS BID x 7 days. D/C methenamine/Vit C. Will consider alternative agent for prophylaxis once culture is back. Related to Acute cystitis without hematuria -Per pre-enrollment (10/11/22 page 4), problem list includes hypertension. -History of 1 fall a couple of years ago r/t orthostatic hypotension. None since. -BP goal <140/90. He has been meeting goal with some tightly controlled BPs, and several heart rate readings in the 50s. Kamar and son would like to pull back on medications where possible. Will trial reduction in metoprolol tartrate to 25mg BID. -Recent labs 06/2024 show evidence of CKD3A with eGFR 48, creatinine 1.52. Consistent with prior labs as far back as 2021 (eGFR 51, creatinine 1.38). -Avoid nephrotoxins, encourage hydration, repeat labs in the next few months. Related to Hypertensive chronic kidney disease with stage 1 through stage 4 chronic kidney disease, or unspecified chronic kidney disease -Recent labs 06/2024 show evidence of CKD3A with eGFR 48, creatinine 1.52. Consistent with prior labs as far back as 2021 (eGFR 51, creatinine 1.38). -Avoid nephrotoxins, encourage hydration, repeat labs in the next few months. Related to Stage 3a chronic kidney disease -Kamar reports intermi ttent and alternating diarrhea and constipation which has reportedly been chronic.-A fiber supplement was sent on 07/20 to help this. He has not yet started it but will do so and then we can reassess. -Day program has been asked recently to start checking Kamar before he leaves the program as he's been getting home with soiled briefs. Related to Alternating constipation and diarrhea -Per pre-enrollment (10/11/22 page 4), prostate cancer diagnosed in 12/2019 Dr. Saldana with a needle biopsy for elevated PSA of 8. Described as ???intermediate risk???.-Urology note (Dr. Saldana at [facility]) states history of prostate cancer, prostatitis ???in the setting of immunocompromised patient???, nocturia, recurring UTI. Urology recommended methenamine with Vitamin C for the recurring UTIs, and trial of Myrbetriq for persistent nocturia in the setting of early dementia. In terms of the prostate cancer, they recommended ???cycling finasteride month on, 1 month off???, they noted PSA stable ???last management 03/14 4.8???. Notes also state the persistent prostatitis started after a prostate biopsy. -Continue finasteride 5mg daily. He has not been taking any Vitamin C with this however urology note states he should be on Methenamine and Vitamin C 1000mg daily for recurrent UTI and history of immunocompromised state r/t prior follicular lymphoma and chemotherapy in 2014. Will send script. Urology also stated they felt persistent nocturia with incontinence was in the setting of early dementia. -Urology note in 09/2023 also stated he should have whole body bone scan. Unclear if this has been completed yet or not. -Follow up with urology. Referral placed. Related to Prostate cancer -Per son and patient , longstanding decreased hearing. Son reports he bought his dad a $4500 hearing aid about 3 years ago but he did not wear it consistently. Joseph says he would be willing to try another one. We will start with an in-office Audicus test and then discuss options. Related to Hard of hearing -Per pre-enrollment (10/11/22 page 4), problem list includes hypertension. -History of 1 fall a couple of years ago r/t orthostatic hypotension. None since. -BP goal <140/90. Meeting goal today but we are just getting to know him today. Will ask that BPs be checked a few times while at [facility] program to determine need for medication adjustments. -Continue metoprolol 50mg twice daily. Related to Essential (primary) hypertension -Per pre-enrollment (10/11/22 page 4), problem list includes CVA. Joseph and his son report some left sided weakness (upper and lower extremity), left side of mouth may ???leak???, some mumbling. -Son helps care for him as part of adult foster care program. -06/2024: On exam, slight differences in left and right side strength. -Overall deconditioned as he spends much of his time sitting in the chair. Will get PT on board for strengthening. Joseph will be coming to day program frequently for more activity, socialization. Related to Hemiparesis affecting left side as late effect of cerebrovascular accident (CVA) -Per pre-enrollment (10/11/22 pg 5), problem list includes lumbar spinal stenosis. -Joseph and his son report ongoing low back pain after level of his belt line; no radiation. No history of surgery or injection. Son feels his lack of movement/activity has led to deconditioning and further weakness. He also has a history of CVA resulting on left sided weakness. Son believes he had imaging about 1 year ago, this would have been at [facility]. I do not see anything in our pre-enrollment. -Ibuprofen has been helpful. Will check renal function and if intact will send for a PRN NSAID. Lidocaine patches have also been helpful; script sent.-Will ask PT to see him. Related to Spinal stenosis of lumbar region without neurogenic claudication -Per urology note, h istory of follicular lymphoma s/p chemotherapy in 2014. Related to History of lymphoma -Per patient report, treated for UTI the week before enrollment (05/2024). I also see in records (Pre-enrollment 10/11/2022) +UTI. Per son, every time he goes they are going to ???treat him for one, it's always there???. Record 04/21/24 shows +UTI while at [place]; discharged 04/08/24.-Per urology, after prostate biopsy he developed persistent prostatitis and also has recurrent UTIs in the setting of history of immunosuppression r/t follicular lymphoma with chemotherapy in 2014. -He is on methenamine Hippurate 1gm daily. We could consider increase of this to twice daily given recent UTI. Urology also indicated he should be on Vitamin C. He was not aware of this. I will send a script for this. -Will have low threshold for running a UA with any change in symptoms or behaviors. Related to History of recurrent UTIs -Per pre-enrollment (10/11/22 page 4), problem list includes dementia. Type not specified. -Son says no formal type, etc. and unclear if he has ever had imaging, potentially a head CT. -MOCA 06/2024 is . -Will attempt to obtain further notes/information on this diagnosis. HCP form on file. Patient is part of adult foster care program with his son as the caregiver. Related to Dementia without behavioral disturbance, psychotic disturbance, mood disturbance, or anxiety, unspecified dementia severity, unspecified dementia type -Per pre-enrollment (04/21/24, page 3) history of depression (type not specified) which was treated with sertraline 50mg daily. Son stopped this as it was making Joseph too sleepy and ???out of it???.-Feels he has continued daily depression symptoms. No anxiety. Increased fatigue. Joseph will be coming to [facility] for increased socialization, activity. -Obtain PHQ at the next visit. Will consider medication options based on results. Related to Recurrent depression -Per pre-enrollment (10/11/22 page 4), BPH listed in problem list. He also was diagnosed with prostate cancer in 12/2019. -Urinary symptoms including nocturia, incontinence. -Continue finasteride 5mg daily at bedtime. He also continues on UTI prophylaxis per urology. -Follow up with urology at [facility]. Related to Nocturia -Per pre-enrollment (10/11/22 page 4), BPH listed in problem list. He also was diagnosed with prostate cancer in 12/2019. -Urinary symptoms including nocturia, incontinence. -Continue finasteride 5mg daily at bedtime. He also continues on UTI prophylaxis per urology. -Follow up with urology at [facility]. Related to BPH associated with nocturia -Per pre-enrollment. -Meals prepared by son. He will be attending [facility] which may increase his activity and improve his diet (at least at lunch). Will also ask PT to assist with strengthening. -Continue atorvastatin 40mg daily. -Labs ordered. Related to Hyperlipidemia, unspecified hyperlipidemia type Assessments Type Assessment Date No Information Goals Health Concern Goal Type Priority Status Date Joseph has depression related to the loss of his and cognitive decline. At risk for emotional distress related to conflict with his son. Joseph will remain living safely in the community through the next review. Patient Goal New Ppt is at risk for functional decline related to advancing dementai and debility. Ppt will demonstrate safe transfers and amb at a min asst level and with appropriate assistives that he can safely use Patient Goal Kamar is at risk for functional decline related to general weakness and confusion . Ppt will be a sup for all transfers and amb activities at home and in the community Patient Goal Joseph is at risk for functional decline related to CVA Joseph will remain at current level of functioning ; independent with supervision for most ADls with occasional assist for 6 months. Patient Goal Joseph is at risk for skin breakdown related to incontinence- will often lay in his own excrement and refuse to get changed. Skin will remain free from breakdown for 6 months. 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 Patient Goal Entered in error Joseph is at risk for falls due to cognitive impairment, CVA history, weakness Joseph will not experience any falls or fall related injuries for 6 months. Patient Goal
--- OUTSIDE RECORDS SUMMARY | 2025-01-21 16:03 | XMS_ITS | Clinical Summary ---
Author Organization [facility] Address [address] [place] [address] Phone Care Team Providers Care Global Sales Manager Name Role Phone Phill Uribe MD Primary Care Provider [phone] Social History Tobacco Use Types Packs/Day Years Used Date Smoking Tobacco: Never Assessed Sex and Gender Information Value Date Recorded Sex Assigned at Not on file Legal Sex Male 4:41 AM EST Gender Identity Not on file Sexual Orientation Not on file Plan of Treatment Health Maintenance Due Date Last Done Comments DTaP,Tdap,and Td Vaccines (1 - Tdap) 1968 Pneumococcal Vaccine: 50+ Years (1 of 1 - PCV) 1999 Zoster Vaccines (1 of 2) 1999 Cholesterol Screening (Lipid Panel) 08/26/2022 Colorectal Cancer Screening: Colonoscopy 08/26/2022 Depression Screening 08/26/2022 Falls Risk Assessment 08/26/2022 Hepatitis C Screening 08/26/2022 Medicare Annual Wellness Visit 08/26/2022 Social Influencers of Health Screening 08/26/2022 COVID-19 Vaccine ( - 2023-2 5 season) 2024 RSV Immunization Adult Patients (1 - 1-dose 75+ series) 2024 Influenza Vaccine (Season Ended) 2025 Hypertension/CHF/CAD Annual BMP Blood Test 10/10/2025 10/10/2024, 08/31/2024 HIB Vaccines Aged Out No longer eligi ble based on patient's age to complete this topic HPV Vaccines Aged Out No longer eligi ble based on patient's age to complete this topic Hepatitis A Vaccines Aged Out No long er eligible based on patient's age to complete this topic Hepatitis B Vaccines Aged Out No long er eligible based on patient's age to complete this topic IPV Vaccines Aged Out No longer eligi ble based on patient's age to complete this topic MMR Vaccines Aged Out No longer eligi ble based on patient's age to complete this topic Meningococcal ACWY Vaccine Aged Out N o longer eligible based on patient's age to complete this topic Meningococcal B Vaccine Aged Out No l onger eligible based on patient's age to complete this topic RSV Immunization Patients Under 20 months Aged Out No longer eligible b ased on patient's age to complete this topic Varicella Vaccines Aged Out No longer eligible based on patient's age to complete this topic Procedures Procedure Name Priority Date/Time Associated Diagnosis Comments COMPREHENSIVE METABOLIC PANEL Routine 10/10/2024 7:37 AM EST Hyperlipidemia, unspecified Thrombocytopenia, unspecified (CMS/HCC) from Last 3 Months or Most Recently Relevant to Health Maintenance Results * (ABNORMAL) Comprehensive metabolic panel (10/10/2024 7:37 AM EST) Sodium 141 133 - 145 mmol/L LAB CHEMISTRY METHOD 10/10/2024 9:24 AM [facility] Potassium 3.7 3.5 - 5.5 mmol/L LAB CHEMISTRY METHOD 10/10/2024 9:24 AM [facility] Chloride 111(H) 96 - 110 mmol/L LAB CHEMISTRY METHOD 10/10/2024 9:24 AM [facility] CO2 26 21 - 32 mmol/L LAB CHEMISTRY METHOD 10/10/2024 9:24 AM [facility] Anion Gap 4 3 - 11 LAB CHEMISTRY METHOD 10/10/2024 9:24 AM [facility] Glucose 86 70 - 100 mg/dL LAB CHEMISTRY METHOD 10/10/2024 9:24 AM [facility] BUN 20 5 - 25 mg/dL LAB CHEMISTRY METHOD 10/10/2024 9:24 AM [facility] Creatinine 1.03 0.70 - 1.30 mg/dL LAB CHEMISTRY METHOD 10/10/2024 9:24 AM [facility] eGFR 76 >=60 mL/min/1. 73m2 LAB CHEMISTRY METHOD 10/10/2024 9:24 AM [facility] Comment:Calculation based on the??Chronic Kidney Disease Epidemiology Collaboration (CKD-EPI) equation refit??without adjustment for race. BUN/Creatinine Ratio 19.4 LAB CHEMISTRY METHOD 10/10/2024 9:24 AM [facility] Calcium 8.5 8.5 - 10.5 mg/dL LAB CHEMISTRY METHOD 10/10/2024 9:24 AM [facility] AST (SGOT) 92(H) 10 - 42 unit/L LAB CHEMISTRY METHOD 10/10/2024 9:24 AM [facility] ALT (SGPT) 131(H) 10 - 60 unit/L LAB CHEMISTRY METHOD 10/10/2024 9:24 AM [facility] Alkaline Phosphatase 85 42 - 121 unit/L LAB CHEMISTRY METHOD 10/10/2024 9:24 AM [facility] Total Protein 6.2 6.0 - 8.0 g/dL LAB CHEMISTRY METHOD 10/10/2024 9:24 AM [facility] Albumin 3.4 3.2 - 5.0 g/dL LAB CHEMISTRY METHOD 10/10/2024 9:24 AM [facility] Total Bilirubin 0.7 0.0 - 1.4 mg/dL LAB CHEMISTRY METHOD 10/10/2024 9:24 AM [facility] Blood Venous blood specimen / Unknown Venipuncture / Unknown 10/10/2024 7:37 AM EST 10/10/2024 8:21 AM EST us Nabeel Toribio MD LAB BLOOD ORDERABLES Final Resu lt [facility] [address] [place] [address], [place] [phone] from Last 3 Months or Most Recently Relevant to Health Maintenance Insurance [facility] MED[employer]ARE ADVANTAGE MEDICARE MEDICAID - [place] Advance Directives Documents on File Type Date Recorded Patient Chemist Steroids Expl anation Health Care Decision (hx) 06/04/2022 MARY VIERA DIRECTIVE Care Teams Global Sales Manager Relationship Specialty Start Date End Date Phill Uribe MD [address] [place] [address] [address] [place] [address] PCP - General Geriatric Medicine 09/04/24
--- OUTSIDE RECORDS SUMMARY | 2025-01-21 16:03 | XMS_ITS | Encounter Summary ---
Author Organization [facility] Address [address] [place] [address] Care Team Providers Care Heavy Lift Rigger Name Role Phone Phill Uribe MD Primary Care Provider Encounter Details Date Type Department Care Team (Late st Contact Info) Description 08/29/2024 Lab Requisition [facility] - Main Lab [address] [facility] [address] Phill Uribe MD [address] [place], [place] [address] Hyperlipidemia, unspecified; Essential (primary) hypertension; Unspecified dementia, unspecified severity, without behavioral disturbance, psychotic disturbance, mood disturbance, and anxiety (CMS/HCC V24, CMS/HCC V28) Social History Tobacco Use Types Packs/Day Years [...] Associated Diagnosis Comments COMPLETE BLOOD COUNT Routine 08/31/2024 7:25 AM EST Hyperlipidemia, unspecified Essential (primary) hypertension Unspecified dementia, unspecified severity, without behavioral disturbance, psychotic disturbance, mood disturbance, and anxiety (CMS/HCC) BASIC METABOLIC PANEL Routine 08/31/2024 7:25 AM EST Hyperlipidemia, unspecified Essential (primary) hypertension Unspecified dementia, unspecified severity, without behavioral disturbance, psychotic disturbance, mood disturbance, and anxiety (CMS/HCC) documented in this encounter Results * (ABNORMAL) Basic metabolic panel (08/31/2024 7:25 AM EST) Sodium 142 133 - 145 mmol/L LAB CHEMISTRY METHOD 08/31/2024 11:25 AM [facility] Potassium 4.1 3.5 - 5.5 mmol/L LAB CHEMISTRY METHOD 08/31/2024 11:25 AM [facility] Chloride 108 96 - 110 mmol/L LAB CHEMISTRY METHOD 08/31/2024 11:25 AM [facility] CO2 27 21 - 32 mmol/L LAB CHEMISTRY METHOD 08/31/2024 11:25 AM [facility] Anion Gap 7 3 - 11 LAB CHEMISTRY METHOD 08/31/2024 11:25 AM [facility] Glucose 66(L) 70 - 100 mg/dL LAB CHEMISTRY METHOD 08/31/2024 11:25 AM [facility] BUN 15 5 - 25 mg/dL LAB CHEMISTRY METHOD 08/31/2024 11:25 AM [facility] Creatinine 1.26 0.70 - 1.30 mg/dL LAB CHEMISTRY METHOD 08/31/2024 11:25 AM [facility] eGFR 60 >=60 mL/min/1. 73m2 LAB CHEMISTRY METHOD 08/31/2024 11:25 AM [facility] Comment:Calculation based on the??Chronic Kidney Disease Epidemiology Collaboration (CKD-EPI) equation refit??without adjustment for race. BUN/Creatinine Ratio 11.9 LAB CHEMISTRY METHOD 08/31/2024 11:25 AM [facility] Calcium 9.0 8.5 - 10.5 mg/dL LAB CHEMISTRY METHOD 08/31/2024 11:25 AM [facility] Blood Venous blood specimen / Unknown Venipuncture / Unknown 08/31/2024 7:25 AM EST 08/31/2024 10:02 AM EST us Phill Uribe MD LAB BLOOD ORDERABLES Final Resul t [facility] [address] [place] [address], * Complete blood count (08/31/2024 7:25 AM EST) WBC 7.1 4.8 - 10.8 K/mcL LAB HEMETOLOGY METHOD 08/31/2024 10:35 AM EST [facility] RBC 4.90 4.50 - 5.50 M/mcL LAB HEMETOLOGY METHOD 08/31/2024 10:35 AM EST [facility] Hemoglobin 14.2 13.5 - 17.5 g/dL LAB HEMETOLOGY METHOD 08/31/2024 10:35 AM [facility] Hematocrit 43.1 42.0 - 54.0 % LAB HEMETOLOGY METHOD 08/31/2024 10:35 AM EST [facility] MCV 87.2 79.0 - 98.0 FL LAB HEMETOLOGY METHOD 08/31/2024 10:35 AM EST [facility] MCH 28.7 27.0 - 32.0 pcg LAB HEMETOLOGY METHOD 08/31/2024 10:35 AM [facility] MCHC 32.9 32.0 - 37.0 g/dL LAB HEMETOLOGY METHOD 08/31/2024 10:35 AM EST [facility] RDW 14.1 11.0 - 15.0 % LAB HEMETOLOGY METHOD 08/31/2024 10:35 AM [facility] Platelets 192 130 - 400 K/mcL LAB HEMETOLOGY METHOD 08/31/2024 10:35 AM [facility] MPV 10.0 7.0 - 11.0 FL LAB HEMETOLOGY METHOD 08/31/2024 10:35 AM [facility] NRBC 0.0 <1.0 % LAB HEMETOLOGY METHOD 08/31/2024 10:35 AM EST [facility] NRBC Absolute 0.00 <0.10 K/[facility] LAB HEMETOLOGY METHOD 08/31/2024 10:35 AM EST [facility] Blood Venous blood specimen / Unknown Venipuncture / Unknown 08/31/2024 7:25 AM EST 08/31/2024 10:02 AM EST Phill Uribe MD LAB BLOOD ORDERABLES Final Resul t [facility] [address] [place] [address], documented in this encounter Visit Diagnoses Diagnosis Hyperlipidemia, unspecified Essential (primary) hypertension Unspecified essential hypertension Unspecified dementia, unspecified severity, without behavioral disturbance, psychotic disturbance, mood disturbance, and anxiety (CMS/HCC V24, CMS/HCC V28) documented in this encounter Care Teams Heavy Lift Rigger Relationship Specialty Start Date End Date Phill Uribe MD [address] [place] [address] [address] [place] [address] PCP - General Geriatric Medicine 09/04/24 documented as of this encounter
--- OUTSIDE RECORDS SUMMARY | 2025-01-21 16:03 | XMS_ITS | Encounter Summary ---
Author Organization [facility] Address [id number] [place] [address] Care Team Providers Care Power House Engineer Name Role Phone Phill Uribe MD Primary Care Provider [phone] Encounter Details Date Type Department Care Team (Late st Contact Info) Description 09/04/2024 Lab Requisition [facility] - Main Lab [address] [facility] [place] [address] Phill Uribe MD [address] [place], [place] [id number] Hyperlipidemia, unspecified; Essential (primary) hypertension; Unspecified dementia, [...] on file documented as of this encounter Visit Diagnoses Diagnosis Hyperlipidemia, unspecified Essential (primary) hypertension Unspecified essential hypertension Unspecified dementia, unspecified severity, without behavioral disturbance, psychotic disturbance, mood disturbance, and anxiety (CMS/HCC V24, CMS/HCC V28) documented in this encounter Care Teams Power House Engineer Relationship Specialty Start Date End Date Phill Uribe MD [address] [place], [place] [id number] PCP - General Geriatric Medicine 09/04/24 documented as of this encounter
== END 2025-01-21 15:07 | disposition home or self-care (01) ==
LOC: HO.HMCC 13:49
PROVIDERS: PCP Internal Medicine; Visit Provider Internal Medicine
DX: Z00.00 Encounter for general adult medical examination without abnormal findings (principal); E78.5 Hyperlipidemia, unspecified; C61 Malignant neoplasm of prostate; F03.90 Unspecified dementia, unspecified severity, without behavioral disturbance, psychotic disturbance, mood disturbance, and anxiety

== ENCOUNTER → 2025-01-21 13:49 | Outpatient (BNVA) | payer MEDICARE, MEDICAID, SELFPAY | PROVIDERS: PCP Internal Medicine; Visit Provider Internal Medicine | DX: Z00.00 Encounter for general adult medical examination without abnormal findings (principal); E78.5 Hyperlipidemia, unspecified; C61 Malignant neoplasm of prostate; Z87.891 Personal history of nicotine dependence | CPT/HCPCS: 96127 ==

== ENCOUNTER 2025-04-01 12:56 | Outpatient (RCR) | payer MEDICARE, MEDICAID, SELFPAY ==
--- NOTE | 2025-04-01 13:45 | MHC.PT.DC ---
[facility] [place] Office [place] Office [place] Office [address] Michael Gamez [address] [phone] F: [phone] F: [phone] F: [phone] F: [phone] Physical Therapy Discharge Report Diagnosis: Date of Surgery: Date of Evaluation: Date of Discharge: 04/01/25 Treatments to Date: Cancellations to Date: No Shows to Date: Discharge Status: Recommend MD Follow-up Discharge Summary: Pt presented to PT with order for weakness, spinal stenosis, repeated falls. Pt was unable to get himself in and out of the clinic independently needing max assist with multiple near falls. Pt presented with his son who stated the pt had been in rehab and had home PT which has since ended. Son states pt now refuses to do his home exercises at home. Pt son stated pt was willing to come to this PT appointment because he gets to see women . Educated pt and his son that if he is not willing to participate in his home exercises then it is not appropriate to do outpatient PT. Therefore this PT eval was not completed due to pt not being appropriate for outpatient PT. Electronically signed by: Ruthie Dominguez, PT, DPT, ATC Please sign and return to therapist. Thank you for your referral.
== END 2025-04-01 13:45 | disposition home or self-care (01) ==
LOC: HO.PTCHIC 12:56
PROVIDERS: PCP Internal Medicine; Visit Provider Internal Medicine
DX: R53.1 Weakness (principal); M48.061 Spinal stenosis, lumbar region without neurogenic claudication; R29.6 Repeated falls

== ENCOUNTER → 2025-04-18 23:59 | Outpatient (BNV) | payer MEDICARE, MEDICAID, SELFPAY | PROVIDERS: PCP Internal Medicine; Visit Provider Internal Medicine | DX: N39.0 Urinary tract infection, site not specified (principal); G93.41 Metabolic encephalopathy; F03.90 Unspecified dementia, unspecified severity, without behavioral disturbance, psychotic disturbance, mood disturbance, and anxiety | CPT/HCPCS: G0180 ==

== ENCOUNTER → 2025-08-13 23:59 | Outpatient (BNV) | payer MEDICARE, MEDICAID, SELFPAY | PROVIDERS: PCP Internal Medicine; Visit Provider Internal Medicine | DX: N30.00 Acute cystitis without hematuria (principal); K56.41 Fecal impaction; I10 Essential (primary) hypertension | CPT/HCPCS: G0180 ==